=== PATIENT | male | born 1935 | race Caucasian/White ===

== ENCOUNTER → 2017-10-26 16:21 | Outpatient (CLI) | payer MEDICARE, SELFPAY | PROVIDERS: Family Provider Family Medicine; PCP Family Medicine; Visit Provider Podiatrist | DX: L03.90 Cellulitis, unspecified (principal) | CPT/HCPCS: 87070; 87077; 87186; 87205 ==

== ENCOUNTER → 2017-11-21 12:24 | Outpatient (CLI) | payer MEDICARE, SELFPAY ==
[2017-11-21 14:36] LABS: Anion Gap 6 (5-15); BUN 33 mg/dL (7-18); BUN/Creat Ratio 16.6 RATIO (10-20); Calcium,Total 9.1 mg/dL (8.5-10.1); Chloride 106 mmol/L (98-107); Creatinine, Serum 1.99 mg/dL (0.70-1.30); EST Glomerular Filtration Rate 34 mL/min (>60); Est Glom Filt Rate - Afr Amer 41 mL/min (>60); Glucose 121 mg/dL (74-106); Potassium 5.2 mmol/L (3.5-5.1); Sodium Level 136 mmol/L (136-145)
== END ==
PROVIDERS: Family Provider Family Medicine; PCP Family Medicine; Visit Provider Family Medicine
DX: E11.9 Type 2 diabetes mellitus without complications (principal)
CPT/HCPCS: 36415; 80048

== ENCOUNTER → 2018-04-30 11:49 | Outpatient (CLI) | payer MEDICARE, SELFPAY ==
[2017-10-24 13:14] VITALS: BMI 29.1
[2018-04-30 14:30] LABS: Hematocrit 43.7 % (40-54); Hemoglobin 14.3 g/dl (13.0-16.5); Mean Corp Hgb Conc 32.7 g/gl (32-36); Mean Corpuscular Hgb 30.3 pg (27.0-32.0); Mean Corpuscular Volume 92.6 fL (80-94); RBC Distribution Width CV 13.3 % (11.6-14.6); Red Blood Count 4.72 M/mm3 (4.6-6.2); White Blood Count 9.5 K/mm3 (4.4-11.0)
[2018-04-30 14:31] LABS: Absolute Lymphocyte Count 1.45 X10^3/ul (0.83-4.51); Basophil# 0.02 X10^3/uL; Basophil% 0.2 % (0-1); Eosinophil# 0.04 X10^3/uL; Eosinophils% 0.4 % (0-5); Lymphocyte # 1.45 X10^3/ul (4.0); Lymphocyte % 15.3 % (19-41); Mean Platelet Vol. 11.1 fl (6.2-12.0); Monocyte# 0.91 X10^3/uL; Monocyte% 9.6 % (0-10); Neutrophil # 7.03 X10^3/uL (2.7-7.7); Neutrophil % 74.2 % (47-70); POSITIVE COUNT NO; POSITIVE DIFFERENTIAL NO; POSITIVE MORPHOLOGY NO; Platelet Count 226 K/mm3 (150-450)
== END ==
PROVIDERS: Family Medicine; Family Provider Family Medicine; PCP Family Medicine; Visit Provider Family Medicine
DX: K92.1 Melena (principal)
CPT/HCPCS: 36415; 85025

== ENCOUNTER 2018-05-19 21:10 | Emergency (ER) | payer MEDICARE, SELFPAY ==
[2018-05-06 14:32] VITALS: BMI 29.1
[2018-05-19 21:11] VITALS: BP 116/77; PULSE 98; RESP 18; TEMP 36.3; O2SAT 98; BMI 28.0
--- NOTE | 2018-05-19 21:22 | RAD_ITS ---
STUDY: X-RAY CHEST REASON FOR EXAM: Male, 82 years old. Chest pain TECHNIQUE: AP COMPARISON: 06/16/2016 FINDINGS: The lungs are clear and expanded. There is no demonstrated pleural abnormality. Normal size heart. Normal mediastinum and félix. Normal visualized pulmonary arteries. There is atherosclerotic tortuosity of the aortic arch and descending thoracic aorta. Normal visualized thoracic spine. Normal visualized ribs, clavicles, and shoulders. There is no demonstrated abnormality of the visualized soft tissue structures of the upper abdomen. RAD/Chest 1 View (Portable) IMPRESSION: Nonacute portable x-ray examination of the chest. Electronically Signed: Radames Mccarthy MD at 21:42 EST , Service support ,
--- NOTE | 2018-05-19 21:22 | EKG12_ITS ---
Test Reason : SYNCOPE Blood Pressure : / mmHG Vent. Rate : 094 BPM Atrial Rate : 094 BPM P-R Int : 170 ms QRS Dur : 084 ms QT Int : 376 ms P-R-T Axes : 048 055 047 degrees QTc Int : 470 ms Normal sinus rhythm Normal ECG Confirmed by TEZ DIAZ, BRO ([id number]), production editor JACOB WINSTON ([id number]) on 05/21/2018 8:59:28 AM Referred By: GABRIELLE Confirmed By:BRO REAGAN MD
--- NOTE | 2018-05-19 21:24 | ED.VISSUMM ---
- ER Visit Summary Date of Service: 05/19/18 Chief Complaint: [] Near syncope on commode after bowel prep for colonoscopy History of Present Illness: The patient is a 82 M [] diabetic on no meds blood sugar about 300, one cardiac stent, reports he scheduled undergo colonoscopy tomorrow for evaluation of prior episode of black stool he said no recent black stools he basically was taking all of the bowel prep medicine including the MiraLAX he had multiple episodes of loose diarrheal bowel movements. During the last one this evening after a large diarrheal bowel movement he could not get off the commode, he was not unconscious he remembers his talking to him but simply could not get off the commode, paramedics were contacted and was brought to the hospital for evaluation He denies fever cough chest pain he is back to baseline now he did not wish to come to the hospital Physical Examination: [] His blood pressure is 116/80 he is afebrile his heart rate is 80 he is resting company in the bed General, no distress resting comfortably HEENT is generally unremarkable The neck is supple no adenopathy Cardiovascular, regular rate and rhythm Lungs, clear bilateral Abdomen, soft nontender Extremities, no clubbing cyanosis or edema Neurologic, awake alert answering questions appropriately moving all 4 extremities Test Results: [] Emergency Department Course and Treatment: [] Given all the above EKG screening labs IV fluids The patient's labs EKG are generally unremarkable for him nothing acute creatinine about 1.8 that is close to baseline He has been given fluids back to baseline he wants to go home he will continue his management and follow-up with all of his outpatient providers and return for change in symptoms, again he does not wish to be admitted Treatment Plan: [] Disposition: [] Stable home Impression: [] Diarrhea after colon prep, near syncope resolved This note was generated with [employer] dictation software. It may contain incorrect words, spelling, and punctuation that were not noted in review of the chart prior to signing ED Disposition - Plan for ED Patient: Chief Complaint: Syncope Referrals: Mike Salas MD [Primary Care Provider] -
[2018-05-19 21:29] VITALS: O2SAT 98
[2018-05-19] MEDS: 0.9% Normal Saline 1,000 ML 150 ML IV (21:30)
[2018-05-19 21:37] LABS: Absolute Lymphocyte Count 0.96 X10^3/ul (0.83-4.51); Absolute Neutrophil Count 6.9 X10^3/uL (2.0-7.7); Basophil# 0.01 X10^3/uL; Basophil% 0.1 % (0-1); Eosinophil# 0.09 X10^3/uL; Hematocrit 40.9 % (40-54); Hemoglobin 13.6 g/dl (13.0-16.5); Lymphocyte # 0.96 X10^3/ul (4.0); Lymphocyte % 10.3 % (19-41); Mean Corp Hgb Conc 33.3 g/gl (32-36); Mean Corpuscular Hgb 29.9 pg (27.0-32.0); Mean Corpuscular Volume 89.9 fL (80-94); Mean Platelet Vol. 10.7 fl (6.2-12.0); Monocyte# 1.34 X10^3/uL; Monocyte% 14.4 % (0-10); Neutrophil # 6.88 X10^3/uL (2.7-7.7); Neutrophil % 73.9 % (47-70); Platelet Count 206 K/mm3 (150-450); RBC Distribution Width CV 13.5 % (11.6-14.6); RBC Distribution Width SD 43.7 fl (35.1-43.9); Red Blood Count 4.55 M/mm3 (4.6-6.2); White Blood Count 9.3 K/mm3 (4.4-11.0)
[2018-05-19 21:38] LABS: POSITIVE COUNT NO; POSITIVE DIFFERENTIAL NO; POSITIVE MORPHOLOGY NO
[2018-05-19 21:51] LABS: Anion Gap 9 (5-15); BUN 27 mg/dL (7-18); BUN/Creat Ratio 14.8 RATIO (10-20); Calcium,Total 8.8 mg/dL (8.5-10.1); Chloride 105 mmol/L (98-107); Creatinine, Serum 1.83 mg/dL (0.70-1.30); EST Glomerular Filtration Rate 38 mL/min (>60); Est Glom Filt Rate - Afr Amer 46 mL/min (>60); Estimated Creatinine Clearance 29.59 ml/min; Glucose 264 mg/dL (74-106); Potassium 4.3 mmol/L (3.5-5.1); Sodium Level 135 mmol/L (136-145)
[2018-05-19 22:07] LABS: BNP,B-Type NATRIURETIC PEPTIDE 63.6 pg/mL (0-100)
--- NOTE | 2018-05-19 22:07 | ED.DEP ---
ED Disposition - Plan for ED Patient: Chief Complaint: Syncope Instructions: ED Hypotension Orthostatic Referrals: Mike Salas MD [Primary Care Provider] -
[2018-05-19 22:11] VITALS: BP 130/71; PULSE 97; RESP 16; O2SAT 98
== END 2018-05-19 22:23 | disposition home or self-care (01) ==
LOC: ED 21:37
PROVIDERS: Emergency Provider Emergency Medicine; Family Provider Family Medicine; PCP Family Medicine
DX: R19.7 Diarrhea, unspecified (principal); R55 Syncope and collapse; E11.9 Type 2 diabetes mellitus without complications; Z95.5 Presence of coronary angioplasty implant and graft; Z79.82 Long term (current) use of aspirin; Z79.899 Other long term (current) drug therapy
CPT/HCPCS: 71045; 80048; 83880; 84484; 85025; 93005; 96360; 99285; J7030; J7040

== ENCOUNTER 2018-05-20 06:49 | Day surgery (SDC) | payer MEDICARE, SELFPAY ==
[2018-05-06 14:32] VITALS: BMI 29.1
[2018-05-19 21:11] VITALS: BMI 28.0
[2018-05-20] VITALS (7 sets, daily range): BP systolic 109–137; BP diastolic 58–112; PULSE 75–95; RESP 16; TEMP 35.9–37.6; O2SAT 95–100; BMI 26.7
[2018-05-20 07:35] LABS: Bedside Glucose 245 mg/dL (70-110)
--- NOTE | 2018-05-20 08:00 | GASB_PTH ---
PATIENT: ROSHNI GARCIA LOC: EN U#:[id number] AGE/SX: 82/M ROOM: RE05/20/[address]: Dr. Kane Mcpherson MD : 1935 BED: DIS: 05/20/2018 SPEC #: [id number] RECD: 05/20/18 10:50 STATUS: KARMA MARIAN #: [id number] KATELYN: 05/20/18 08:[address]: Kane Mcpherson DEPT: SURGICAL PATHOLOGY RECD BY: Donavon Ball ENTERED: 05/20/18 12:47 SP TYPE: Gastric Bx OTHR DR: Dr. Mike Salas MD Tissues: Gastric mucous membrane Procedures: Surgery Specimen Level IV HEADER OPERATION: [place] [place] DIAGNOSIS: Abdominal pain; black, tarry stools TISSUE SUBMITTED: Antral biopsy for H. pylori and pathology MICROSCOPIC DIAGNOSIS Antral biopsy: Mild gastritis. See microscopic description and comment. SJ:steve 05/21/18 COMMENT The results of immunohistochemistry for Helicobacter pylori will be reported separately ([id number]). MICROSCOPIC DESCRIPTION Slides are reviewed. The specimen shows fragments of gastric mucosa with chronic inflammatory cell infiltrates in the lamina propria consisting of lymphocytes and plasma cells, consistent with mild chronic gastritis. GROSS DESCRIPTION Received in fixative is one container labeled with the patient's name and designated antral biopsy. The specimen consists of one irregular fragment of light massey soft tissue that measures 0.6 x 0.2 x 0.1 cm. The specimen is totally submitted in one cassette. / SJ:rg 05/20/18 TC:3 CPT: 67906
--- NOTE | 2018-05-20 08:00 | IMM_PTH ---
PATIENT: ROSHNI GARCIA LOC: EN U#:[id number] AGE/SX: 82/M ROOM: RE05/20/[address]: Dr. Kane Mcpherson MD : 1935 BED: DIS: 05/20/2018 SPEC #: [id number] RECD: 05/20/18 13:47 STATUS: KARMA REQ #: [id number] KATELYN: 05/20/18 08:[address]: Kane Mcpherson DEPT: IMMUNOHISTOCHEMISTRY RECD BY: Latonya Castañeda ENTERED: 05/20/18 13:48 SP TYPE: IMMUNO OTHR DR: Dr. Mike Salas MD Tissues: Stomach, NOS Procedures: H Pylori (initial) PHYSICIAN & INSTITUTION [place] [address] SPECIMEN INFORMATION: Tissue Source: Antral biopsy Clinical Info: Abdominal pain; black, tarry stools Specimen Number: [id number] CPT code: 06505 METHODOLOGY: Deparaffinized sections of prefer/formalin-fixed tissue or PAP/DQ stained slides are incubated with monoclonal/polyclonal antibodies/oligonucleotide probes. Localization is made via biotin free immunoperoxidase method. Appropriate controls are performed and reacted as expected. Results on target cell population are indicated in the following table: RESULTS: ANTIBODY / CLONE RESULT H Pylori (polyclonal) negative These tests were developed and their performance characteristics determined by [facility]. They may not have been cleared or approved by the U.S. Food and Drug Administration. The FDA has determined that such clearance or approval is not necessary. INTERPRETATION: Antral biopsy: Negative for Helicobacter pylori organisms. SJ:steve 05/21/18
--- NOTE | 2018-05-20 08:25 | OP.ENDO_ITS ---
Patient Name: Александр Walden Procedure Date: 05/20/2018 7:56 AM Date of : 1935 Age: 82 Procedure: Upper GI endoscopy Indications: Generalized abdominal pain, Melena Providers: Kane Mcpherson MD Referring MD: Mike Salas MD Medicines: See the Anesthesia note for documentation of the administered medications Patient Profile: This is an 82 year old male. Refer to note in patient chart for documentation of history and physical. Complications: No immediate complications. Procedure: Pre-Anesthesia Assessment: - Prior to the procedure, a History and Physical was performed, and patient medications and allergies were reviewed. The patient's tolerance of previous anesthesia was also reviewed. The risks and benefits of the procedure and the sedation options and risks were discussed with the patient. All questions were answered, and informed consent was obtained. Prior Anticoagulants: The patient has taken no previous anticoagulant or antiplatelet agents. ASA Grade Assessment: III - A patient with severe systemic disease. After reviewing the risks and benefits, the patient was deemed in satisfactory condition to undergo the procedure. After obtaining informed consent, the endoscope was passed under direct vision. Throughout the procedure, the patient's blood pressure, pulse, and oxygen saturations were monitored continuously. The gastroscope was introduced through the mouth, and advanced to the second part of duodenum. The upper GI endoscopy was accomplished without difficulty. The patient tolerated the procedure well. Scope In: 8:02:49 AM Scope Out: 8:05:36 AM Total Procedure Duration Time 0 hours 2 minutes 47 seconds Findings: The Z-line was regular and was found 40 cm from the incisors. A small hiatal hernia was present. Localized minimal inflammation characterized by erythema was found in the prepyloric region of the stomach. Biopsies were taken with a cold forceps for Helicobacter pylori testing. The examined duodenum was normal. Impression: - Z-line regular, 40 cm from the incisors. - Small hiatal hernia. - Gastritis. Biopsied. - Normal examined duodenum. Recommendation: - Await pathology results. - Repeat upper endoscopy PRN for surveillance. - Return to my office in 1 week. - Continue present medications. Procedure Code(s): --- Professional --- 99206, Esophagogastroduodenoscopy, flexible, transoral; with biopsy, single or multiple Diagnosis Code(s): --- Professional --- K44.9, Diaphragmatic hernia without obstruction or gangrene K29.70, Gastritis, unspecified, without bleeding R10.84, Generalized abdominal pain K92.1, Melena (includes Hematochezia) CPT copyright 2017 [employer]. All rights reserved. The codes documented in this report are preliminary and upon therapeutic recreation assistant review may be revised to meet current compliance requirements. MD Kane Johnson MD 05/20/2018 8:25:29 AM This report has been signed electronically. Number of Addenda: 0 Note Initiated On: 05/20/2018 7:56 AM
--- NOTE | 2018-05-20 08:31 | OP.ENDO_ITS ---
Patient Name: Александр Walden Procedure Date: 05/20/2018 8:07 AM Date of : 1935 Age: 82 Procedure: Colonoscopy Indications: Generalized abdominal pain, Melena Providers: Kane Mcpherson MD Referring MD: Mike Salas MD Medicines: See the Anesthesia note for documentation of the administered medications Patient Profile: This is an 82 year old male. Refer to note in patient chart for documentation of history and physical. Last Colonoscopy: date unknown. Unable to locate last colonoscopy report. Complications: No immediate complications. Procedure: Pre-Anesthesia Assessment: - Prior to the procedure, a History and Physical was performed, and patient medications and allergies were reviewed. The patient's tolerance of previous anesthesia was also reviewed. The risks and benefits of the procedure and the sedation options and risks were discussed with the patient. All questions were answered, and informed consent was obtained. Prior Anticoagulants: The patient has taken no previous anticoagulant or antiplatelet agents. ASA Grade Assessment: III - A patient with severe systemic disease. After reviewing the risks and benefits, the patient was deemed in satisfactory condition to undergo the procedure. - Prior to the procedure, a History and Physical was performed, and patient medications and allergies were reviewed. The patient's tolerance of previous anesthesia was also reviewed. The risks and benefits of the procedure and the sedation options and risks were discussed with the patient. All questions were answered, and informed consent was obtained. Prior Anticoagulants: The patient has taken no previous anticoagulant or antiplatelet agents. ASA Grade Assessment: III - A patient with severe systemic disease. After reviewing the risks and benefits, the patient was deemed in satisfactory condition to undergo the procedure. After I obtained informed consent, the scope was passed under direct vision. Throughout the procedure, the patient's blood pressure, pulse, and oxygen saturations were monitored continuously. The colonoscope was introduced through the anus and advanced to the cecum, identified by appendiceal orifice and ileocecal valve. The colonoscopy was performed without difficulty. The patient tolerated the procedure well. The quality of the bowel preparation was good. Scope In: 8:08:20 AM Scope Withdrawal Time 0 hours 6 minutes 2 seconds Scope Out: 8:20:40 AM Total Procedure Duration Time 0 hours 12 minutes 20 seconds Findings: Multiple small and large-mouthed diverticula were found in the sigmoid colon and descending colon. Non-bleeding internal hemorrhoids were found during retroflexion. The hemorrhoids were mild. The exam was otherwise without abnormality. Impression: - Diverticulosis in the sigmoid colon and in the descending colon. - Non-bleeding internal hemorrhoids. - The examination was otherwise normal. - There were no signs of any mass lesions. There is no AVMs noted. - No specimens collected. Recommendation: - Discharge patient to home. - Resume previous diet. - Continue present medications. - Await pathology results. - Repeat colonoscopy in 10 years for screening purposes. - Return to primary care physician at appointment to be scheduled. Procedure Code(s): --- Professional --- 41455, Colonoscopy, flexible; diagnostic, including collection of specimen(s) by brushing or washing, when performed (separate procedure) Diagnosis Code(s): --- Professional --- K64.8, Other hemorrhoids R10.84, Generalized abdominal pain K92.1, Melena (includes Hematochezia) K57.30, Diverticulosis of large intestine without perforation or abscess without bleeding CPT copyright 2017 [employer]. All rights reserved. The codes documented in this report are preliminary and upon special projects manager review may be revised to meet current compliance requirements. MD Kane Johnson MD 05/20/2018 8:30:25 AM This report has been signed electronically. Number of Addenda: 0 Note Initiated On: 05/20/2018 8:07 AM
== END 2018-05-20 09:05 | disposition home or self-care (01) ==
LOC: EN 06:51 → AC 06:52
PROVIDERS: Family Provider Family Medicine; PCP Family Medicine; Referring Provider Surgery; Visit Provider Surgery
PROC: 0DJD8ZZ Inspection of Lower Intestinal Tract, Via Natural or Artificial Opening Endoscopic (ICD-10-PCS; CPT 45378; principal; 2018-05-20 07:55)
DX: K29.70 Gastritis, unspecified, without bleeding (principal); K44.9 Diaphragmatic hernia without obstruction or gangrene; K57.30 Diverticulosis of large intestine without perforation or abscess without bleeding; K64.8 Other hemorrhoids; I25.10 Atherosclerotic heart disease of native coronary artery without angina pectoris; E11.22 Type 2 diabetes mellitus with diabetic chronic kidney disease; I12.9 Hypertensive chronic kidney disease with stage 1 through stage 4 chronic kidney disease, or unspecified chronic kidney disease; N18.9 Chronic kidney disease, unspecified; K21.9 Gastro-esophageal reflux disease without esophagitis; E78.00 Pure hypercholesterolemia, unspecified; E06.9 Thyroiditis, unspecified; M06.9 Rheumatoid arthritis, unspecified; M10.9 Gout, unspecified; Z86.73 Personal history of transient ischemic attack (TIA), and cerebral infarction without residual deficits; Z85.828 Personal history of other malignant neoplasm of skin; Z90.49 Acquired absence of other specified parts of digestive tract; Z95.5 Presence of coronary angioplasty implant and graft; Z79.82 Long term (current) use of aspirin; Z79.84 Long term (current) use of oral hypoglycemic drugs; Z79.899 Other long term (current) drug therapy
CPT/HCPCS: 43239; 45378; 82962; 88305; 88342; J7120

== ENCOUNTER → 2018-08-12 13:54 | Outpatient (CLI) | payer MEDICARE, SELFPAY ==
[2018-05-20 07:25] VITALS: BMI 26.7
[2018-08-12 13:57] LABS: Bacteria 0 SEEN /hpf (None Seen); Mucous, Urine 0 SEEN /hpf (<or=2+); Squamous Epithelial Cells - UA 0 SEEN /hpf (0-5); White Blood Cells 0 SEEN /hpf (0-5)
[2018-08-12 14:53] LABS: Absolute Lymphocyte Count 1.19 X10^3/ul (0.83-4.51); Absolute Neutrophil Count 5.6 X10^3/uL (2.0-7.7); Basophil# 0.01 X10^3/uL; Basophil% 0.1 % (0-1); Eosinophil# 0.05 X10^3/uL; Eosinophils% 0.6 % (0-5); Hematocrit 42.2 % (40-54); Lymphocyte # 1.19 X10^3/ul (4.0); Lymphocyte % 15.1 % (19-41); Mean Corp Hgb Conc 33.2 g/gl (32-36); Mean Corpuscular Hgb 30.3 pg (27.0-32.0); Mean Corpuscular Volume 91.3 fL (80-94); Mean Platelet Vol. 11.1 fl (6.2-12.0); Monocyte# 1.05 X10^3/uL; Monocyte% 13.3 % (0-10); Neutrophil # 5.57 X10^3/uL (2.7-7.7); Neutrophil % 70.5 % (47-70); Platelet Count 208 K/mm3 (150-450); RBC Distribution Width CV 13.5 % (11.6-14.6); RBC Distribution Width SD 44.3 fl (35.1-43.9); Red Blood Count 4.62 M/mm3 (4.6-6.2); White Blood Count 7.9 K/mm3 (4.4-11.0)
[2018-08-12 14:55] LABS: Color, Urine Yellow (Yellow); Glucose, Dipstick Normal (Normal); Ketone-Dipstick 5 mg/dl (Negative); Leukocyte Esterase-Dipstick Negative /ul (Negative); Nitrite-Dipstick Negative (Negative); Occult Blood-Urine 10 /ul (Negative); Protein-Dipstick 100 mg/dl (Negative); Urine Bilirubin Dipstick Negative (Negative); Urine Clarity Clear (Clear); Urine Urobilinogen Normal (Normal)
[2018-08-12 14:56] LABS: POSITIVE COUNT NO; POSITIVE DIFFERENTIAL NO; POSITIVE MORPHOLOGY NO
[2018-08-12 15:01] LABS: Red Blood Cells-Urine 0-5 SEEN /hpf (0-5)
[2018-08-12 15:05] LABS: ALB/GLOB Ratio 0.9 RATIO (0.9-2.4); AST(SGOT) 21 U/L (15-37); Alanine Aminotransfer ALT/SGPT 18 U/L (16-61); Albumin, Serum 3.6 g/dL (3.2-5.0); Alkaline Phosphatase 115 U/L (45-117); Anion Gap 8 (5-15); BUN 26 mg/dL (7-18); BUN/Creat Ratio 13.2 RATIO (10-20); Calcium,Total 8.6 mg/dL (8.5-10.1); Chloride 105 mmol/L (98-107); Creatinine, Serum 1.97 mg/dL (0.70-1.30); EST Glomerular Filtration Rate 35 mL/min (>60); Est Glom Filt Rate - Afr Amer 42 mL/min (>60); Globulin 4.1 g/dL (2.2-4.2); Glucose 172 mg/dL (74-106); Potassium 4.5 mmol/L (3.5-5.1); Protein, Total 7.7 g/dL (6.4-8.2); Sodium Level 136 mmol/L (136-145)
== END ==
PROVIDERS: Family Provider Family Medicine; PCP Family Medicine; Referring Provider Family Medicine; Visit Provider Family Medicine
DX: R10.9 Unspecified abdominal pain (principal)
CPT/HCPCS: 36415; 80053; 81001; 85025

== ENCOUNTER → 2018-08-12 14:29 | Outpatient (CLI) | payer MEDICARE, SELFPAY ==
[2018-05-20 07:25] VITALS: BMI 26.7
--- NOTE | 2018-08-12 14:37 | CT_ITS ---
STUDY: CT ABDOMEN AND PELVIS WITHOUT CONTRAST REASON FOR EXAM: Male, 83 years old. Abdominal pain, weight loss. History of cholecystectomy and hernia repair. RADIATION DOSAGE (If Supplied By Facility): CTDIvol = ( 10.27 ) mGy, DLP = ( 464.26 ) mGycm TECHNIQUE: Transaxial images were obtained from the dome of the diaphragm to the symphysis pubis with oral contrast, and without intravenous contrast. Sagittal and coronal images were reconstructed. Individualized dose optimization techniques were used for this CT. COMPARISON: CT abdomen and pelvis without contrast April 22, 2016. FINDINGS: Stable 6 mm nodular density in the posterolateral periphery of the right lung base. Other similar small nodular densities seen previously in the nearby right lung base are not included in the field of view today. Normal heart size. There is stable minor anterior pericardial thickening. Normal liver. The portal vein diameter is 13.5 mm. There are surgical clips in the gallbladder fossa consistent with a prior cholecystectomy. Normal spleen. Round 1.5 cm accessory spleen is seen anterior to the mid pole. There is mild diffuse fatty infiltration of the pancreas. Normal bilateral adrenal glands. There are at least 4 stable cortical cysts of the right kidney. The largest is at the posterior lateral mid pole, measuring 2.7 x 2.0 x 2.3 cm Rounded hypodense 2 cm cyst at the posterior midpole of the left kidney is unchanged. Stable 2 mm nonobstructing stone at the left midpole. No hydronephrosis. There is a stable very small hiatal hernia. Normal small intestine. There are multiple colonic diverticula consistent with diverticulosis. There is borderline pericolonic stranding over a short segment of the distal most left colon that raises question of early diverticulitis. No demonstrated extraluminal collection. The appendix is visualized and appears normal. There is mild atherosclerotic calcification of the abdominal aorta and proximal iliac arteries, with stable 1.9 x 2.05 cm fusiform dilatation of the infrarenal segment. Normal inferior vena cava. Normal retroperitoneum. Empty urinary bladder. Normal visualized prostate gland. A right hydrocele is again noted. Surgical clips are again seen along the inguinal regions of the bilateral lower anterior abdominal wall. There is a stable small left-sided inguinal hernia containing adipose tissue. There are stable, extensive diffuse degenerative changes of the visualized lumbar spine, as well as degenerative arthrosis of the bilateral sacroiliac joints with bridging periarticular osteophytes CT/Abdomen/Pelvis without Cont IMPRESSION: 1. No new demonstrated abdominal/pelvic mass or fluid collection. 2. Colonic diverticulosis with question of early diverticulitis of the distal most left colon. No shift level collections demonstrated. No sign of bowel obstruction. The appendix is normal. Stable very small hiatal hernia. 3. Aortoiliac atherosclerotic calcific plaquing with 2.05 cm fusiform infrarenal dilatation.. 4. Bilateral renal cortical cysts again noted. Stable 2 mm nonobstructing stone at the midpole of the left kidney. No hydronephrosis. 5. Prior cholecystectomy. 6. Surgical clips again seen along the inguinal tissues of the bilateral low anterior abdominal chen. There is a stable small, fat-containing left inguinal hernia. 7. Stable extensive degenerative changes of the spine as well as degenerative arthroses of the bilateral sacroiliac joints. 8. Stable 6 mm nodule in the posterolateral right lung base Electronically Signed: Saqib Nowak MD at 17:37 EST , Service support ,
== END ==
PROVIDERS: Family Provider Family Medicine; PCP Family Medicine; Referring Provider Family Medicine; Visit Provider Family Medicine
DX: R10.9 Unspecified abdominal pain (principal)
CPT/HCPCS: 36415; 74176; 80053; 81001; 85025

== ENCOUNTER 2018-08-16 11:23 | Inpatient (IN) | payer MEDICARE, SELFPAY ==
[2018-05-20 07:25] VITALS: BMI 26.7
[2018-08-16] VITALS (10 sets, daily range): BP systolic 117–151; BP diastolic 70–90; PULSE 85–115; RESP 14–20; TEMP 36.4–36.6; O2SAT 98–100; BMI 25.2
--- NOTE | 2018-08-16 12:22 | CT_ITS ---
STUDY: CT BRAIN WITHOUT CONTRAST REASON FOR EXAM: Male, 83 years old. Seizure. Left upper extremity numbness. RADIATION DOSAGE (If Supplied By Facility): CTDIvol = ( 44.99 ) mGy, DLP = ( 745.49 ) mGycm TECHNIQUE: Transaxial CT imaging of the brain was performed without administration of intravenous contrast material. Individualized dose optimization techniques were used for this CT. COMPARISON: None. FINDINGS: Normal soft tissue structures. Normal calvarium. There is mild cerebral atrophy with widening of the extra-axial spaces and ventricular dilatation. There are areas of decreased attenuation within the white matter tracts of the supratentorial brain, consistent with microvascular disease changes. There are small punctate calcifications of the basal ganglia which are seen in the aging brain as a normal variant. Normal brainstem. There is mild cerebellar atrophy. There is no intracranial hemorrhage. There are no findings of an acute ischemic infarction. Atherosclerotic ossification of the cavernous portions of the internal carotid arteries bilaterally. Normal visualized paranasal sinuses. CT/Brain/Head without Contrast IMPRESSION: Normal unenhanced CT scan of the brain. Electronically Signed: Kelvin Love, at 14:32 EST , Service support ,
--- NOTE | 2018-08-16 12:22 | RAD_ITS ---
STUDY: X-RAY CHEST REASON FOR EXAM: Male, 83 years old. Abdominal pain. History of diverticulitis. TECHNIQUE: Single AP portable view of the chest. COMPARISON: Comparison is made with prior study dated May 19, 2018. FINDINGS: EKG electrodes are seen. Hyperinflation. The lungs are clear. There is no demonstrated pleural abnormality. Normal size heart. Normal mediastinum and félix. Normal visualized pulmonary arteries. There is atherosclerotic tortuosity of the aortic arch and descending thoracic aorta. There are diffuse degenerative changes of the visualized thoracic spine. Normal visualized ribs, clavicles, and shoulders. There is no demonstrated abnormality of the visualized soft tissue structures of the upper abdomen. RAD/Chest 1 View IMPRESSION: Hyperinflation. The lungs are clear. Electronically Signed: Kelvin Love, at 14:30 EST , Service support ,
--- NOTE | 2018-08-16 12:22 | EKG12_ITS ---
Test Reason : SEIZURE Blood Pressure : / mmHG Vent. Rate : 093 BPM Atrial Rate : 093 BPM P-R Int : 176 ms QRS Dur : 080 ms QT Int : 360 ms P-R-T Axes : 066 052 050 degrees QTc Int : 447 ms Normal sinus rhythm Normal ECG Confirmed by SALINAS DIAZ, MARITO ([id number]), continuity editor JACOB WINSTON ([id number]) on 08/20/2018 9:49:03 AM Referred By: BB Confirmed By:MARITO NIÑO MD
--- NOTE | 2018-08-16 12:33 | ED.VIS.GEN ---
History of Present Illness Chief Complaint: Seizure Informant: Patient, Family Onset: Today Narrative: Patient got out of the shower this morning and at around 09 100, around 3 hours prior to arrival, he noticed numbness in his right upper extremity mostly his hand. He does not think he had any weakness that he can recall. Just prior to arrival, while sitting in his recliner, his witnessed him all of a sudden appeared to have a seizure. His hands were up near his face and he was shaking all over, eyes rolled back and has had any was unresponsive. This lasted for a couple of minutes, and it resolved spontaneously, he did not fall. He was very briefly unresponsive afterwards but quickly came to. He is amnestic to the event. He has never had a seizure before. No known history of mass in the brain, he did have a TIA in the past. He takes no antiplatelets or anticoagulants. He did not hit his head recently. He has been on antibiotics for several days because of diverticulitis which has been improving. No other recent illnesses. His numbness is improved at this time, but not completely resolved. - Past Medical History (1) Atherosclerosis of aorta Status: Chronic (2) Coronary atherosclerosis of [place] coronary artery Status: Chronic Comment: [facility] with stent to ramus 10/31/10 (3) Diverticulosis of colon Status: Chronic (4) Esophageal reflux Status: Chronic (5) Essential hypertension Status: Chronic (6) Hyperlipidemia Status: Chronic (7) Hypertensive chronic kidney disease Status: Chronic (8) Hypothyroidism Status: Chronic (9) Type II diabetes mellitus Status: Chronic Past Medical History - Allergies and Home Meds Allergies/Adverse Reactions: Allergies clopidogrel bisulfate [From Plavix] Allergy (Verified 08/16/18 11:32) Rash cyclobenzaprine [Cyclobenzaprine] Allergy (Verified 08/16/18 11:32) Rash fluoxetine HCl [From Prozac] Allergy (Verified 08/16/18 11:32) Rash Primary Care Physician: Mike Salas MD [Primary Care Provider] - Surgical History: cholecystectomy, - - back Lives: Spouse/ Significant Other Smoking Status: Never smoker Review of Systems General: Reports: Malaise. Denies: Chills, Fever, Sweats Eyes: Denies: Visual changes - bilaterally, Diplopia ENT: Denies: Rhinorrhea, Sore throat Cardiovascular: Denies: Chest pain, Palpitations Respiratory: Denies: Dyspnea, Cough, Dyspnea on exertion Gastrointestinal: Reports: Abdominal pain, Nausea. Denies: Vomiting, Diarrhea, Melena, Hematochezia Genitourinary: Reports: - - sore, swollen right testicle due to chronic hydrocele. Denies: Dysuria, Hematuria, Frequency Musculoskeletal: Denies: Back pain, Extremity Pain Skin: Denies: Rash, Wounds Neurological: Reports: Numbness - RUE; improved.. Denies: Headache, Weakness Physical Exam Vital Signs/Narrative: Vital Signs Temp Pulse Resp BP Pulse Ox 08/16/18 11:29 97.5 F L 95 16 136/74 H 99 Inital Vital Signs reviewed: Yes General: Well nourished, Well developed, No Acute Distress - conversive Head: Normocephalic, Atraumatic Eyes: Perrl, EOMI ENT: Moist mucous membranes, No rhinorrhea Neck: Supple, Nontender Cardiovascular: Regular rate, Regular rhythm, No murmurs. Negative for: Tachycardia Respiratory: No distress, CTA bilaterally, Chest nontender Abdomen: Soft, Nondistended, Normal bowel sounds, Tender - mild LUQ only. Negative for: Guarding, Rebound tenderness Back: Nontender, Normal Inspection Extremities: Nontender, No edema Skin: Normal color, No rash Neurological: Alert, Oriented x3, Cranial nerves II-XII grossly intact, Normal Sensation, Parasthesia - mild, RUE forearm, Weakness - pronator drift RUE only, - - no dysarthria or aphasia. no hemineglect. follows commands appropriately. correct month/age. nml visual melendez, eye movements. no facial asymmetry. persistent subj numbness, not abn objectively. Total NIHSS - 2. Psychological: Normal affect, Normal Mood Diagnostic/Tx/Re-eval 08/16/18 12:22 Brain/Head without Contrast [CT] Stat CTA Head W/WO Contrast [CT] Stat CTA Neck W/WO Contrast [CT] Stat Chest 1 View [RAD] Stat Laboratory Results 08/16/18 08/16/18 08/16/18 12:40 12:40 12:40 WBC 7.3 RBC 4.25 L Hgb 12.6 L Hct 38.7 L MCV 91.1 MCH 29.6 MCHC 32.6 RDW 13.4 RDW Differential 44.0 H Plt Count 172 MPV 11.0 Immature Gran % (Auto) 0.400 Neut % (Auto) 76.6 H Lymph % (Auto) 8.7 L [place] % (Auto) 13.8 H Eos % (Auto) 0.4 Baso % (Auto) 0.1 Absolute Neuts (auto) 5.6 Absolute Lymphs (auto) 0.63 L Total Counted Not Reportable PT 15.1 H INR 1.2 APTT 31.3 Sodium 137 Potassium 3.9 Chloride 105 Carbon Dioxide 23.0 Anion Gap 9 BUN 23 H Creatinine 2.00 H Estim Creat Clear Calc 26.60 Est GFR (MDRD) Af Amer 41 L Est GFR (MDRD) Non-Af 34 L BUN/Creatinine Ratio 11.5 Glucose 224 H Calcium 8.6 Troponin I < 0.015 - Rhythm Strip Rhythm Strip: Sinus Rhythm Rate: 95 Ectopy: None - EKG Initial EKG Interpretation: Sinus Rhythm, No Acute Injury Pattern, - - nml axis. nml EKG. - Medical Decision Making Labs show renal insufficiency with a creatinine of 2.0, so we held off on CT angiography. CT head shows no acute hemorrhage. On reevaluation his symptoms are stable and unchanged. NIH is 2. Discussed with Dr. Castillo with neurology who agrees with this canceling CT angiography, admitting him for MRI/MRA, and further workup, and giving him aspirin. No seizure activity in the emergency department. Patient not an IV TPA candidate, mostly because of improvement prior to arrival and low NIHSS. ED Disposition - Plan for ED Patient: Disposition: Acute Care Hospital [facility] Diagnosis: Seizure, RUE weakness Referrals: Mike Salas MD [Primary Care Provider] -
--- NOTE | 2018-08-16 12:38 | ED.DCSUM_ITS ---
History of Present Illness Chief Complaint: Seizure Informant: Patient, Family Onset: Today Narrative: Patient got out of the shower this morning and at around 09 100, around 3 hours prior to arrival, he noticed numbness in his right upper extremity mostly his hand. He does not think he had any weakness that he can recall. Just prior to arrival, while sitting in his recliner, his witnessed him all of a sudden appeared to have a seizure. His hands were up near his face and he was shaking all over, eyes rolled back and has had any was unresponsive. This lasted for a couple of minutes, and it resolved spontaneously, he did not fall. He was very briefly unresponsive afterwards but quickly came to. He is amnestic to the event. He has never had a seizure before. No known history of mass in the brain, he did have a TIA in the past. He takes no antiplatelets or anticoagulants. He did not hit his head recently. He has been on antibiotics for several days because of diverticulitis which has been improving. No other recent illnesses. His numbness is improved at this time, but not completely resolved. - Past Medical History (1) Atherosclerosis of aorta Status: Chronic (2) Coronary atherosclerosis of [place] coronary artery Status: Chronic Comment: [facility] with stent to ramus 10/31/10 (3) Diverticulosis of colon Status: Chronic (4) Esophageal reflux Status: Chronic (5) Essential hypertension Status: Chronic (6) Hyperlipidemia Status: Chronic (7) Hypertensive chronic kidney disease Status: Chronic (8) Hypothyroidism Status: Chronic (9) Type II diabetes mellitus Status: Chronic Past Medical History - Allergies and Home Meds Allergies/Adverse Reactions: Allergies clopidogrel bisulfate [From Plavix] Allergy (Verified 08/16/18 11:32) Rash cyclobenzaprine [Cyclobenzaprine] Allergy (Verified 08/16/18 11:32) Rash fluoxetine HCl [From Prozac] Allergy (Verified 08/16/18 11:32) Rash Primary Care Physician: Mike Salas MD [Primary Care Provider] - Surgical History: cholecystectomy, - - back Lives: Spouse/ Significant Other Smoking Status: Never smoker Review of Systems General: Reports: Malaise. Denies: Chills, Fever, Sweats Eyes: Denies: Visual changes - bilaterally, Diplopia ENT: Denies: Rhinorrhea, Sore throat Cardiovascular: Denies: Chest pain, Palpitations Respiratory: Denies: Dyspnea, Cough, Dyspnea on exertion Gastrointestinal: Reports: Abdominal pain, Nausea. Denies: Vomiting, Diarrhea, Melena, Hematochezia Genitourinary: Reports: - - sore, swollen right testicle due to chronic hydrocele. Denies: Dysuria, Hematuria, Frequency Musculoskeletal: Denies: Back pain, Extremity Pain Skin: Denies: Rash, Wounds Neurological: Reports: Numbness - RUE; improved.. Denies: Headache, Weakness Physical Exam Vital Signs/Narrative: Vital Signs Temp Pulse Resp BP Pulse Ox 08/16/18 11:29 97.5 F L 95 16 136/74 H 99 Inital Vital Signs reviewed: Yes General: Well nourished, Well developed, No Acute Distress - conversive Head: Normocephalic, Atraumatic Eyes: Perrl, EOMI ENT: Moist mucous membranes, No rhinorrhea Neck: Supple, Nontender Cardiovascular: Regular rate, Regular rhythm, No murmurs. Negative for: Tachycardia Respiratory: No distress, CTA bilaterally, Chest nontender Abdomen: Soft, Nondistended, Normal bowel sounds, Tender - mild LUQ only. Negative for: Guarding, Rebound tenderness Back: Nontender, Normal Inspection Extremities: Nontender, No edema Skin: Normal color, No rash Neurological: Alert, Oriented x3, Cranial nerves II-XII grossly intact, Normal Sensation, Parasthesia - mild, RUE forearm, Weakness - pronator drift RUE only, - - no dysarthria or aphasia. no hemineglect. follows commands appropriately. correct month/age. nml visual melendez, eye movements. no facial asymmetry. persistent subj numbness, not abn objectively. Total NIHSS - 2. Psychological: Normal affect, Normal Mood Diagnostic/Tx/Re-eval 08/16/18 12:22 Brain/Head without Contrast [CT] Stat CTA Head W/WO Contrast [CT] Stat CTA Neck W/WO Contrast [CT] Stat Chest 1 View [RAD] Stat Laboratory Results 08/16/18 08/16/18 08/16/18 12:40 12:40 12:40 WBC 7.3 RBC 4.25 L Hgb 12.6 L Hct 38.7 L MCV 91.1 MCH 29.6 MCHC 32.6 RDW 13.4 RDW Differential 44.0 H Plt Count 172 MPV 11.0 Immature Gran % (Auto) 0.400 Neut % (Auto) 76.6 H Lymph % (Auto) 8.7 L [place] % (Auto) 13.8 H Eos % (Auto) 0.4 Baso % (Auto) 0.1 Absolute Neuts (auto) 5.6 Absolute Lymphs (auto) 0.63 L Total Counted Not Reportable PT 15.1 H INR 1.2 APTT 31.3 Sodium 137 Potassium 3.9 Chloride 105 Carbon Dioxide 23.0 Anion Gap 9 BUN 23 H Creatinine 2.00 H Estim Creat Clear Calc 26.60 Est GFR (MDRD) Af Amer 41 L Est GFR (MDRD) Non-Af 34 L BUN/Creatinine Ratio 11.5 Glucose 224 H Calcium 8.6 Troponin I < 0.015 - Rhythm Strip Rhythm Strip: Sinus Rhythm Rate: 95 Ectopy: None - EKG Initial EKG Interpretation: Sinus Rhythm, No Acute Injury Pattern, - - nml axis. nml EKG. - Medical Decision Making Labs show renal insufficiency with a creatinine of 2.0, so we held off on CT angiography. CT head shows no acute hemorrhage. On reevaluation his symptoms are stable and unchanged. NIH is 2. Discussed with Dr. Castillo with neurology who agrees with this canceling CT angiography, admitting him for MRI/M RA, and further workup, and giving him aspirin. No seizure activity in the emergency department. Patient not an IV TPA candidate, mostly because of improvement prior to arrival and low NIHSS. ED Disposition - Plan for ED Patient: Disposition: Acute Care Hospital [facility] Diagnosis: Seizure, RUE weakness Referrals: Mike Salas MD [Primary Care Provider] -
[2018-08-16 12:48] LABS: Absolute Lymphocyte Count 0.63 X10^3/ul (0.83-4.51); Absolute Neutrophil Count 5.6 X10^3/uL (2.0-7.7); Basophil# 0.01 X10^3/uL; Basophil% 0.1 % (0-1); Eosinophil# 0.03 X10^3/uL; Eosinophils% 0.4 % (0-5); Hematocrit 38.7 % (40-54); Hemoglobin 12.6 g/dl (13.0-16.5); Lymphocyte # 0.63 X10^3/ul (4.0); Lymphocyte % 8.7 % (19-41); Mean Corp Hgb Conc 32.6 g/gl (32-36); Mean Corpuscular Hgb 29.6 pg (27.0-32.0); Mean Corpuscular Volume 91.1 fL (80-94); Monocyte% 13.8 % (0-10); Neutrophil # 5.56 X10^3/uL (2.7-7.7); Neutrophil % 76.6 % (47-70); Platelet Count 172 K/mm3 (150-450); RBC Distribution Width CV 13.4 % (11.6-14.6); Red Blood Count 4.25 M/mm3 (4.6-6.2); White Blood Count 7.3 K/mm3 (4.4-11.0)
[2018-08-16 12:49] LABS: POSITIVE COUNT NO; POSITIVE DIFFERENTIAL NO; POSITIVE MORPHOLOGY NO
[2018-08-16] MEDS: Ondansetron 4 MG/2 ML Vial IV (12:49)
[2018-08-16 13:01] LABS: International Normalized Ratio 1.2; Partial Thromboplast Time 31.3 Seconds (24.1-36.2); Prothrombin Time (Protime)PT. 15.1 SECONDS (11.7-14.9)
[2018-08-16 13:06] LABS: Anion Gap 9 (5-15); BUN 23 mg/dL (7-18); BUN/Creat Ratio 11.5 RATIO (10-20); Calcium,Total 8.6 mg/dL (8.5-10.1); Chloride 105 mmol/L (98-107); EST Glomerular Filtration Rate 34 mL/min (>60); Est Glom Filt Rate - Afr Amer 41 mL/min (>60); Glucose 224 mg/dL (74-106); Potassium 3.9 mmol/L (3.5-5.1); Sodium Level 137 mmol/L (136-145)
--- NOTE | 2018-08-16 14:57 | PCM.CONS.GEN ---
Problem List (1) Right arm numbness Status: Acute Reason for Consult Date of Consultation: 08/16/18 Reason for Consultation: Right arm numbness History of Present Illness: The patient is a 83 year old M with PMH HTN, HLD, DM, DM neuropathy, CKD, CAD s/p stents, hypothyroidism, gout admitted with right arm numbness. Patient and his are poor historians. Per patient he felt right arm numbness around 9 am this morning (08/16/18), but denies any weakness, per patient he tells me he can move his right arm now but denies weakness this morning. Per he was then sitting on the chair when he started gasping for air, his eyes rolled back but denies any tonic clonic movements of the extremities, tongue bite, urinary incontinence or post ictal state, the whole event lasted for about a min or so per , but patient does not remember the event, denies any witnessed seizure, patient probably had something similar event about 2-3 months ago and per documentation at that time he was brought to the ED at that time on May 19 2018 with near-syncope, he never had seizures in the past. At present patient denies any PHAN, visual disturbances, speech disturbances, focal motor weakness or sensory loss. Patient not sure how long did he have right arm numbness, but at present he feels his numbness has improved, denies any neck pain or radicular symptoms, lives with his , does not drive, may use cane for ambulating and does need some assistance for his ADLs. Is on Ciprofloxacin for diverticulitis and per patient he has been off of his ASA lately. [] Past Medical History Past Medical History (Chronic Problems): Chronic Problems (Last Reviewed 05/14/18 @ 13:00 by Kane Mcpherson MD) Angina pectoris (Chronic) Encounter for long-term current use of high risk medication (Chronic) Hypothyroidism (Chronic) Essential hypertension (Chronic) Hyperlipidemia (Chronic) Esophageal reflux (Chronic) Diverticulosis of colon (Chronic) Type II diabetes mellitus (Chronic) Coronary atherosclerosis of [place] coronary artery (Chronic) [facility] with stent to ramus 10/31/10 Chronic kidney disease (Chronic) Hypertensive chronic kidney disease (Chronic) Atherosclerosis of aorta (Chronic) Medical History: Medical History (Last Reviewed 05/14/18 @ 13:00 by Kane Mcpherson MD) Essential hypertension (Chronic) I10 Hyperlipidemia (Chronic) E78.5 Coronary atherosclerosis of [place] coronary artery (Chronic) I25.10 [facility] with stent to ramus 10/31/10 Chronic kidney disease (Chronic) N18.9 Allergies clopidogrel bisulfate [From Plavix] Allergy (Verified 08/16/18 11:32) Rash cyclobenzaprine [Cyclobenzaprine] Allergy (Verified 08/16/18 11:32) Rash fluoxetine HCl [From Prozac] Allergy (Verified 08/16/18 11:32) Rash Home Medications: Ambulatory Orders Medication Instructions Recorded Aspirin [Aspirin, Baby] 81 mg PO DAILY@0800 08/15/13 Levothyroxine [Synthroid] 112 mcg PO DAILY 08/15/13 Omeprazole [Prilosec] 20 mg PO DAILY 06/26/16 lisinopril 5 mg tablet 5 mg PO DAILY #30 tab 10/24/17 nitroglycerin 0.4 mg sublingual 0.4 mg SUBLINGUAL Q5M PRN #25 tab 10/24/17 tablet Allopurinol [Zyloprim] 100 mg PO DAILY 08/16/18 Ciprofloxacin HCl 500 mg PO BID 08/16/18 Metformin HCl 500 mg PO DAILY 08/16/18 Metoprolol Succinate [Toprol Xl] 50 mg PO DAILY 08/16/18 Metronidazole [Flagyl] 500 mg PO Q8H 08/16/18 Surgical History: Surgical History (Last Reviewed 05/14/18 @ 13:00 by Kane Mcpherson MD) toenail removed (Resolved) History of back surgery (Resolved) Z98.890 Hx of cholecystectomy (Resolved) Z90.49 H/O percutaneous transluminal coronary angioplasty (Resolved) Z98.61 [facility] with stent to ramus 10/31/10 Surgical History: cholecystectomy, - - back Lives: Spouse/ Significant Other Smoking Status: Never smoker Alcohol: None Drugs: None - *Family History Maternal Family History: Family History (Last Reviewed 05/14/18 @ 13:00 by Kane Mcpherson MD) Father Diabetes Mother No problems noted. History Items: Diabetes Paternal Family History: Family History (Last Reviewed 05/14/18 @ 13:00 by Kane Mcpherson MD) Father Diabetes Mother No problems noted. History Items: Diabetes Review of Systems Constitutional: Reports: - - complete ROS negative except as documented in HPI Patient Problems: Active and Suspected Problems (Last Reviewed 05/14/18 @ 13:00 by Kane Mcpherson MD) Seizure (Acute) RUE weakness (Acute) Right arm numbness (Acute) - Physical Exam General: Alert HEENT: Normocephalic Neck: Supple Lungs: Normal air movement Cardiovascular: Normal S1, Normal S2 Abdomen: Bowel Sounds Present Extremities: No cyanosis Neurological: - - consious, alert, AoA x3, CN 2-12 grossly intact, power 5/5 all 4 extremities, no sensory loss, no cerebellar signs, gait deferred, Reflexes + B/L B/S/T/K/A, NIHSS 0, mRS 2 at baseline Psych/Mental Status: Normal Affect Vital Signs Temp Pulse Resp BP Pulse Ox 97.5 F L 92 14 128/70 H 98 08/16/18 11:29 08/16/18 14:35 08/16/18 14:35 08/16/18 14:35 08/16/18 14:35 Oxygen Delivery Method Room Air Weight: 75.296 kg Body Mass Index (BMI) 25.2 Laboratory Tests Past 24 Hrs 08/16/18 08/16/18 08/16/18 12:40 12:40 12:40 WBC 7.3 RBC 4.25 L Hgb 12.6 L Hct 38.7 L MCV 91.1 MCH 29.6 MCHC 32.6 RDW 13.4 RDW Differential 44.0 H Plt Count 172 MPV 11.0 Immature Gran % (Auto) 0.400 Neut % (Auto) 76.6 H Lymph % (Auto) 8.7 L [place] % (Auto) 13.8 H Eos % (Auto) 0.4 Baso % (Auto) 0.1 Absolute Neuts (auto) 5.6 Absolute Lymphs (auto) 0.63 L Total Counted Not Reportable PT 15.1 H INR 1.2 APTT 31.3 Sodium 137 Potassium 3.9 Chloride 105 Carbon Dioxide 23.0 Anion Gap 9 BUN 23 H Creatinine 2.00 H Estim Creat Clear Calc 26.60 Est GFR (MDRD) Af Amer 41 L Est GFR (MDRD) Non-Af 34 L BUN/Creatinine Ratio 11.5 Glucose 224 H Calcium 8.6 Troponin I < 0.015 Assessment/Plan All Active Problems (Last Reviewed 05/14/18 @ 13:00 by Kane Mcpherson MD) Seizure (Acute) RUE weakness (Acute) Right arm numbness (Acute) toenail removed (Resolved) History of back surgery (Resolved) Hx of cholecystectomy (Resolved) H/O percutaneous transluminal coronary angioplasty (Resolved) The patient is a 83 year old M with PMH HTN, HLD, DM, DM neuropathy, CKD, CAD s/p stents, hypothyroidism, gout admitted with right arm numbness. Patient and his are poor historians. Per patient he felt right arm numbness around 9 am this morning (08/16/18), but denies any weakness, per patient he tells me he can move his right arm now but denies weakness this morning. Per he was then sitting on the chair when he started gasping for air, his eyes rolled back but denies any tonic clonic movements of the extremities, tongue bite, urinary incontinence or post ictal state, the whole event lasted for about a min or so per , but patient does not remember the event, denies any witnessed seizure, patient probably had something similar event about 2-3 months ago and per documentation at that time he was brought to the ED at that time on May 19 2018 with near-syncope, he never had seizures in the past. At present patient denies any PHAN, visual disturbances, speech disturbances, focal motor weakness or sensory loss. Patient not sure how long did he have right arm numbness, but at present he feels his numbness has improved, denies any neck pain or radicular symptoms, lives with his , does not drive, may use cane for ambulating and does need some assistance for his ADLs. Is on Ciprofloxacin for diverticulitis and per patient he has been off of his ASA lately. Impression ? TIA Possible Near Syncope vs Syncope, Unlikely to be seizure at present Plan -Check MRI Brain w/o contrast, MRA head/neck and MRI C spine w/o contrast -Check EEG -At present patient's description of spell less likely to be seizure, would hold off on AED. But may avoid antibiotics like ciprofloxacin which can lower seizure threshold, avoid tramadol or Wellbutrin -Seizure precautions. Patient does not drive. -On ASA and Lipitor -TTE, LDL and Hba1c -PT/OT -Further medical management per hospitalist team -GI/DVT prophylaxis -Please call with questions if any -Thank you for allowing us to participate in patient's care and management Code Visit Inpatient E&M: 91139 Init Hosp L3
--- NOTE | 2018-08-16 15:03 | PCM.HP.STD ---
<Philip Miller - Last Filed: 08/16/18 15:03> History of Present Illness Date of Admission: 08/16/18 Chief Complaint: syncope The patient is a 83 year old M with pmhx of chronic vertigo, orthostatic syncope, CKDIII, CAD (prior stent), hypotyhroidism, DMt2, HTN, and gout who presents to the ER with c/o syncope today. He states he got out of the shower, sat down in a chair and thought his right arm went numb. After about 10 minutes he suddenly rolled his head back, lost consciousness, and was gasping for breath. His thought he was having a seizure and brought him to the ER. There was no muscle contraction, no loss of continence, biting of the tongue, and no post ictal phase. He also recovered after about a minute per the , and he recovered the sensation in his right arm. He does not remember what happened. He has had a similar episode - he got out of the shower and lost consciousness. He also was in the ER in 05/28 with syncope on the commode while doing a bowel prep. Also of note, he is currently being treated with cipro and flagyl for a diverticulitis flair - started abx on sunday. He currently has some pain around his hydrocele, however no other abdominal pain. He has been on a clear liquid diet this week and has had diarrhea. Some nausea, no vomiting. He has no headache, dizziness, focal weakness, or numbness in the ER now. He stopped taking baby aspirin several months ago, it is unclear why. [] Past Medical History Past Medical History (Chronic Problems): Chronic Problems (Last Reviewed 05/14/18 @ 13:00 by Kane Mcpherson MD) Angina pectoris (Chronic) Encounter for long-term current use of high risk medication (Chronic) Hypothyroidism (Chronic) Essential hypertension (Chronic) Hyperlipidemia (Chronic) Esophageal reflux (Chronic) Diverticulosis of colon (Chronic) Type II diabetes mellitus (Chronic) Coronary atherosclerosis of [place] coronary artery (Chronic) [facility] [place] with stent to ramus 10/31/10 Chronic kidney disease (Chronic) Hypertensive chronic kidney disease (Chronic) Atherosclerosis of aorta (Chronic) Medical History: Medical History (Last Reviewed 05/14/18 @ 13:00 by Kane Mcpherson MD) Essential hypertension (Chronic) I10 Hyperlipidemia (Chronic) E78.5 Coronary atherosclerosis of [place] coronary artery (Chronic) I25.10 [facility] [place] with stent to ramus 10/31/10 Chronic kidney disease (Chronic) N18.9 Allergies clopidogrel bisulfate [From Plavix] Allergy (Verified 08/16/18 11:32) Rash cyclobenzaprine [Cyclobenzaprine] Allergy (Verified 08/16/18 11:32) Rash fluoxetine HCl [From Prozac] Allergy (Verified 08/16/18 11:32) Rash Home Medications: Ambulatory Orders Medication Instructions Recorded Aspirin [Aspirin, Baby] 81 mg PO DAILY@0800 08/15/13 Levothyroxine [Synthroid] 112 mcg PO DAILY 08/15/13 Omeprazole [Prilosec] 20 mg PO DAILY 06/26/16 lisinopril 5 mg tablet 5 mg PO DAILY #30 tab 10/24/17 nitroglycerin 0.4 mg sublingual 0.4 mg SUBLINGUAL Q5M PRN #25 tab 10/24/17 tablet Allopurinol [Zyloprim] 100 mg PO DAILY 08/16/18 Ciprofloxacin HCl 500 mg PO BID 08/16/18 Metformin HCl 500 mg PO DAILY 08/16/18 Metoprolol Succinate [Toprol Xl] 50 mg PO DAILY 08/16/18 Metronidazole [Flagyl] 500 mg PO Q8H 08/16/18 Surgical History: Surgical History (Last Reviewed 05/14/18 @ 13:00 by Kane Mcpherson MD) toenail removed (Resolved) History of back surgery (Resolved) Z98.890 Hx of cholecystectomy (Resolved) Z90.49 H/O percutaneous transluminal coronary angioplasty (Resolved) Z98.61 [facility] [place] with stent to ramus 10/31/10 Surgical History: cholecystectomy, - - back Psychiatric History: No pertinent psych hx Lives: Spouse/ Significant Other Smoking Status: Never smoker Tobacco Use: Non-smoker Alcohol: None Drugs: None - *Family History Maternal Family History: Family History (Last Reviewed 05/14/18 @ 13:00 by Kane Mcpherson MD) Father Diabetes Mother No problems noted. History Items: Diabetes Paternal Family History: Family History (Last Reviewed 05/14/18 @ 13:00 by Kane Mcpherson MD) Father Diabetes Mother No problems noted. History Items: Diabetes Review of Systems Constitutional: Denies: Chills, Fever, Weight Change HEENT: Denies: Head Aches, Sinus Congestion, Sinus Drainage Cardiovascular: Reports: Syncope. Denies: Chest Pain, Palpitations Respiratory: Denies: Cough, Shortness of breath at rest, Sputum production Gastrointestinal: Reports: Abdominal Pain - suprapubic around hydrocele, Nausea. Denies: Vomiting Genitourinary: Denies: Dysuria Musculoskeletal: Denies: Joint Pain, Joint Tenderness Skin: Denies: Rash, Wounds Neurological: Denies: Balance problems, Blurred vision, Double vision, Change in Speech, Slurred speech, Confusion, Difficulty swallowing, Focal weakness, Headaches, Numbness, Tingling, Tremor, Seizures Psychiatric: Denies: Anxiety, Depression, Homicidal Ideations, Suicidal Ideations Hematologic/ Lymphatic: Denies: Easy Bruising, Easy Bleeding VTE Information - Inpt Only VTE Present on Admission: No VTE Mechan Device Prophylaxis: None VTE Pharm Prophylaxis ordered?: Yes Patient Problems: Active and Suspected Problems (Last Reviewed 05/14/18 @ 13:00 by Kane Mcpherson MD) Seizure (Acute) RUE weakness (Acute) Right arm numbness (Acute) - Physical Exam General: Alert, Oriented x3, Cooperative HEENT: Atraumatic, PERRLA, EOMI, Normocephalic Neck: Supple, No JVD, Negative Carotid Bruits Lungs: Clear to auscultation, Normal air movement Cardiovascular: Regular rate, No murmurs Abdomen: Bowel Sounds Present, Soft, Non Tender Extremities: No edema, Capillary Refill Less than 3 Seconds Skin: No rashes, No breakdown Musculoskeletal: No Tenderness to Palpation of Joints or Extremities Neurological: Cranial nerves II-XII grossly intact Psych/Mental Status: Normal Affect, Appropriate, Alert and oriented to time, place, person, mood and affect Vital Signs Temp Pulse Resp BP Pulse Ox 97.5 F L 92 14 128/70 H 98 08/16/18 11:29 08/16/18 14:35 08/16/18 14:35 08/16/18 14:35 08/16/18 14:35 Oxygen Delivery Method Room Air Weight: 166 lb Body Mass Index (BMI) 25.2 Laboratory Tests Past 24 Hrs 08/16/18 08/16/18 08/16/18 12:40 12:40 12:40 WBC 7.3 RBC 4.25 L Hgb 12.6 L Hct 38.7 L MCV 91.1 MCH 29.6 MCHC 32.6 RDW 13.4 RDW Differential 44.0 H Plt Count 172 MPV 11.0 Immature Gran % (Auto) 0.400 Neut % (Auto) 76.6 H Lymph % (Auto) 8.7 L [place] % (Auto) 13.8 H Eos % (Auto) 0.4 Baso % (Auto) 0.1 Absolute Neuts (auto) 5.6 Absolute Lymphs (auto) 0.63 L Total Counted Not Reportable PT 15.1 H INR 1.2 APTT 31.3 Sodium 137 Potassium 3.9 Chloride 105 Carbon Dioxide 23.0 Anion Gap 9 BUN 23 H Creatinine 2.00 H Estim Creat Clear Calc 26.60 Est GFR (MDRD) Af Amer 41 L Est GFR (MDRD) Non-Af 34 L BUN/Creatinine Ratio 11.5 Glucose 224 H Calcium 8.6 Troponin I < 0.015 Assessment/Plan All Active Problems (Last Reviewed 05/14/18 @ 13:00 by Kane Mcpherson MD) Seizure (Acute) RUE weakness (Acute) Right arm numbness (Acute) toenail removed (Resolved) History of back surgery (Resolved) Hx of cholecystectomy (Resolved) H/O percutaneous transluminal coronary angioplasty (Resolved) 1. Syncope - concerning for CVA with LOC and RUE transient numbness. Initially thought he had a seizure however he did not have any shaking, post ictal phase, incontinence, tongue biting, and no hx of seizures. He does have a hx of orthostatic / vasovagal syncope and chronic vertigo. It is concerning that he has been on cipro which can lower the seizure threshold however. In addition the cipro is for diverticulitis, and he has been on a clear diet and has had loose stools this week. CT brain negative Obtain MRI brain/MRA head and neck, Obtain Echo, Obtain EEG Check orthostatic vitals Provide IV fluids Neuro consulted, already evaluated the patient in the ER. Restart baby aspirin (been off for several months) Start statin PT/OT/ST evals. 2. Partialy treated Acute diverticulitis - symptoms have greatly improved, this is day 4 of Abx. DC cipro flagyl and provide augmentin x 1 more day for 5 days total therapy. Advance diet as tolerated. Antiemetics and pain control as needed 3. CAD - prior stent - start statin, restart aspirin, continue geovanny, toprol 4. CKDIII - BUN/Cr are elevated, however does not appear significantly up since prior studies 5. DMt2 - hold metformin, SSI 6. Hypothyroid - check tsh 7. Hydrocele - urology follow up as outpatient DVT ppx: Heparin DC planning: ptot evals. This patient was seen by Philip Miller PA-C under the supervision of Doctor London. <Panchito Callahan - Last Filed: 08/16/18 15:54> Problem List (1) RUE weakness Status: Acute History of Present Illness Chief Complaint: syncope. right arm numbness. The patient is a 83 year old M who had a shower today and then experiencing right arm numbness. Subsequently, patient started gasping for breath and then was unresponsive. EMS was contacted and by the time the got back, the patient was awake and alert. Patient has similar episode earlier this year where he was in for breath and passed out. Spell that was due to his blood sugar as he was drinking Gatorade. [] Past Medical History Medical History: Medical History (Last Reviewed 08/16/18 @ 15:45 by Panchito Callahan DO) Essential hypertension (Chronic) I10 Hyperlipidemia (Chronic) E78.5 Coronary atherosclerosis of [place] coronary artery (Chronic) I25.10 [facility] [place] with stent to ramus 10/31/10 Chronic kidney disease (Chronic) N18.9 Allergies clopidogrel bisulfate [From Plavix] Allergy (Verified 08/16/18 11:32) Rash cyclobenzaprine [Cyclobenzaprine] Allergy (Verified 08/16/18 11:32) Rash fluoxetine HCl [From Prozac] Allergy (Verified 08/16/18 11:32) Rash Surgical History: Surgical History (Last Reviewed 08/16/18 @ 15:45 by Panchito Callahan DO) toenail removed (Resolved) History of back surgery (Resolved) Z98.890 Hx of cholecystectomy (Resolved) Z90.49 H/O percutaneous transluminal coronary angioplasty (Resolved) Z98.61 [facility] [place] with stent to ramus 10/31/10 Surgical History: cholecystectomy, - Psychiatric History: No pertinent psych hx Lives: Spouse/ Significant Other Smoking Status: Never smoker Tobacco Use: Non-smoker Alcohol: None Drugs: None - *Family History Maternal Family History: Family History (Last Reviewed 08/16/18 @ 15:46 by Panchito Callahan DO) Father Diabetes Mother No problems noted. Paternal Family History: Family History (Last Reviewed 08/16/18 @ 15:46 by Panchito Callahan DO) Father Diabetes Mother No problems noted. Review of Systems Constitutional: Denies: Chills, Fever, Weight Change HEENT: Denies: Head Aches, Sinus Congestion, Sinus Drainage Cardiovascular: Reports: Syncope. Denies: Chest Pain, Palpitations Respiratory: Denies: Cough, Shortness of breath at rest, Sputum production Gastrointestinal: Reports: Abdominal Pain, Nausea. Denies: Vomiting Genitourinary: Denies: Dysuria Musculoskeletal: Denies: Joint Pain, Joint Tenderness Skin: Denies: Rash, Wounds Neurological: Denies: Balance problems, Blurred vision, Double vision, Change in Speech, Slurred speech, Confusion, Difficulty swallowing, Focal weakness, Headaches, Numbness, Tingling, Tremor, Seizures Psychiatric: Denies: Anxiety, Depression, Homicidal Ideations, Suicidal Ideations Hematologic/ Lymphatic: Denies: Easy Bruising, Easy Bleeding VTE Information - Inpt Only VTE Present on Admission: No VTE Mechan Device Prophylaxis: None VTE Pharm Prophylaxis ordered?: Yes - Physical Exam General: Alert, Cooperative HEENT: Atraumatic, PERRLA, EOMI, Normocephalic Neck: No Nodes, Thyroid Normal Size and Texture Lungs: Clear to auscultation, Normal air movement, No rhonchi, No wheeze Cardiovascular: Regular rate, Regular Rhythm, Normal S1, Normal S2, No murmurs Abdomen: Bowel Sounds Present, Soft, Non Tender, Non-Distended Extremities: No edema, No Calf Tenderness, - - Tophi noted on 1 of his toes. Also has a tophi on his right lateral arm. Skin: No rashes, No breakdown Musculoskeletal: No Tenderness to Palpation of Joints or Extremities, No Muscle Wasting Neurological: Cranial nerves II-XII grossly intact, Deep Tendon Reflexes 2+/4 and Symmetrical, - - Slight left upper extremity drift. Psych/Mental Status: Normal Affect, Appropriate Vital Signs Temp Pulse Resp BP Pulse Ox 36.4 C L 107 H 20 H 151/90 H 98 08/16/18 11:29 08/16/18 15:39 08/16/18 15:39 08/16/18 15:39 08/16/18 15:39 Oxygen Delivery Method Room Air Weight: 75.296 kg Body Mass Index (BMI) 25.2 Laboratory Tests Past 24 Hrs 08/16/18 08/16/18 08/16/18 12:40 12:40 12:40 WBC 7.3 RBC 4.25 L Hgb 12.6 L Hct 38.7 L MCV 91.1 MCH 29.6 MCHC 32.6 RDW 13.4 RDW Differential 44.0 H Plt Count 172 MPV 11.0 Immature Gran % (Auto) 0.400 Neut % (Auto) 76.6 H Lymph % (Auto) 8.7 L [place] % (Auto) 13.8 H Eos % (Auto) 0.4 Baso % (Auto) 0.1 Absolute Neuts (auto) 5.6 Absolute Lymphs (auto) 0.63 L Total Counted Not Reportable PT 15.1 H INR 1.2 APTT 31.3 Sodium 137 Potassium 3.9 Chloride 105 Carbon Dioxide 23.0 Anion Gap 9 BUN 23 H Creatinine 2.00 H Estim Creat Clear Calc 26.60 Est GFR (MDRD) Af Amer 41 L Est GFR (MDRD) Non-Af 34 L BUN/Creatinine Ratio 11.5 Glucose 224 H Calcium 8.6 Troponin I < 0.015 Assessment/Plan Patient seen and examined independently. Data reviewed. I agree with the above note by the physician learning support assistant. 1. Suspected syncope: Patient has known history of orthostatic hypotension and patient just got out of a hot shower and feel this probably more of a vasovagal type episode. Nonetheless, patient had been on Cipro recently for recent diverticulitis which can lower the seizure threshold so patient will undergo workup in regards to evaluate for possible seizure including EEG. 2. Right upper extremity paresthesias and weakness: Concern for stroke. Patient did grow a stroke workup with an MRI of the brain, MRA of the head and neck. Check an echocardiogram continue neurology consultation, physical occupational therapy evaluate. Patient already on aspirin. 3. Diverticulitis: Is unclear completely that this was not a seizure, will change patient's antibiotics over to Augmentin as ciprofloxacin is known to lower the seizure threshold. 4. Gout: Patient is on allopurinol grams daily and has tophi that have been unchanged. The patient's chronic kidney disease, increasing his allopurinol would not be advised. I did advise to he and his that he up with rheumatology for evaluation to see if he would be a candidate for febuxostat. Patient states that he gets a flareup every week, seems to dispute that saying that every couple months. On his handwritten medication list, its written to hold allopurinol while he is on prednisone for his flareups. I explained to him that it is okay for him to continue allopurinol while he does have a flareup. Allopurinol is not advised to be initiated when some has a flareup is not been on allopurinol previously. Code Visit Inpatient E&M: 46410 Init Hosp L3
--- NOTE | 2018-08-16 15:04 | CON.PCM_ITS ---
Problem List (1) Right arm numbness Status: Acute Reason for Consult Date of Consultation: 08/16/18 Reason for Consultation: Right arm numbness History of Present Illness: The patient is a 83 year old M with PMH HTN, HLD, DM, DM neuropathy, CKD, CAD s/p stents, hypothyroidism, gout admitted with right arm numbness. Patient and his are poor historians. Per patient he felt right arm numbness around 9 am this morning (08/16/18), but denies any weakness, per patient he tells me he can move his right arm now but denies weakness this morning. Per he was then sitting on the chair when he started gasping for air, his eyes rolled back but denies any tonic clonic movements of the extremities, tongue bite, urinary incontinence or post ictal state, the whole event lasted for about a min or so per , but patient does not remember the event, denies any witnessed seizure, patient probably had something similar event about 2-3 months ago and per documentation at that time he was brought to the ED at that time on May 19 2018 with near-syncope, he never had seizures in the past. At present patient denies any PHAN, visual disturbances, speech disturbances, focal motor weakness or sensory loss. Patient not sure how long did he have right arm numbness, but at present he feels his numbness has improved, denies any neck pain or radicular symptoms, lives with his , does not drive, may use cane for ambulating and does need some assistance for his ADLs. Is on Ciprofloxacin for diverticulitis and per patient he has been off of his ASA lately. [] Past Medical History Past Medical History (Chronic Problems): Chronic Problems (Last Reviewed 05/14/18 @ 13:00 by Kane Mcpherson MD) Angina pectoris (Chronic) Encounter for long-term current use of high risk medication (Chronic) Hypothyroidism (Chronic) Essential hypertension (Chronic) Hyperlipidemia (Chronic) Esophageal reflux (Chronic) Diverticulosis of colon (Chronic) Type II diabetes mellitus (Chronic) Coronary atherosclerosis of [place] coronary artery (Chronic) [facility] with stent to ramus 10/31/10 Chronic kidney disease (Chronic) Hypertensive chronic kidney disease (Chronic) Atherosclerosis of aorta (Chronic) Medical History: Medical History (Last Reviewed 05/14/18 @ 13:00 by Kane Mcpherson MD) Essential hypertension (Chronic) I10 Hyperlipidemia (Chronic) E78.5 Coronary atherosclerosis of [place] coronary artery (Chronic) I25.10 [facility] with stent to ramus 10/31/10 Chronic kidney disease (Chronic) N18.9 Allergies clopidogrel bisulfate [From Plavix] Allergy (Verified 08/16/18 11:32) Rash cyclobenzaprine [Cyclobenzaprine] Allergy (Verified 08/16/18 11:32) Rash fluoxetine HCl [From Prozac] Allergy (Verified 08/16/18 11:32) Rash Home Medications: Ambulatory Orders Medication Instructions Recorded Aspirin [Aspirin, Baby] 81 mg PO DAILY@0800 08/15/13 Levothyroxine [Synthroid] 112 mcg PO DAILY 08/15/13 Omeprazole [Prilosec] 20 mg PO DAILY 06/26/16 lisinopril 5 mg tablet 5 mg PO DAILY #30 tab 10/24/17 nitroglycerin 0.4 mg sublingual 0.4 mg SUBLINGUAL Q5M PRN #25 tab 10/24/17 tablet Allopurinol [Zyloprim] 100 mg PO DAILY 08/16/18 Ciprofloxacin HCl 500 mg PO BID 08/16/18 Metformin HCl 500 mg PO DAILY 08/16/18 Metoprolol Succinate [Toprol Xl] 50 mg PO DAILY 08/16/18 Metronidazole [Flagyl] 500 mg PO Q8H 08/16/18 Surgical History: Surgical History (Last Reviewed 05/14/18 @ 13:00 by Kane Mcpherson MD) toenail removed (Resolved) History of back surgery (Resolved) Z98.890 Hx of cholecystectomy (Resolved) Z90.49 H/O percutaneous transluminal coronary angioplasty (Resolved) Z98.61 [facility] with stent to ramus 10/31/10 Surgical History: cholecystectomy, - - back Lives: Spouse/ Significant Other Smoking Status: Never smoker Alcohol: None Drugs: None - *Family History Maternal Family History: Family History (Last Reviewed 05/14/18 @ 13:00 by Kane Mcpherson MD) Father Diabetes Mother No problems noted. History Items: Diabetes Paternal Family History: Family History (Last Reviewed 05/14/18 @ 13:00 by Kane Mcpherson MD) Father Diabetes Mother No problems noted. History Items: Diabetes Review of Systems Constitutional: Reports: - - complete ROS negative except as documented in HPI Patient Problems: Active and Suspected Problems (Last Reviewed 05/14/18 @ 13:00 by Kane Mcpherson MD) Seizure (Acute) RUE weakness (Acute) Right arm numbness (Acute) - Physical Exam General: Alert HEENT: Normocephalic Neck: Supple Lungs: Normal air movement Cardiovascular: Normal S1, Normal S2 Abdomen: Bowel Sounds Present Extremities: No cyanosis Neurological: - - consious, alert, AoA x3, CN 2-12 grossly intact, power 5/5 all 4 extremities, no sensory loss, no cerebellar signs, gait deferred, Reflexes + B/L B/S/T/K/A, NIHSS 0, mRS 2 at baseline Psych/Mental Status: Normal Affect Vital Signs Temp Pulse Resp BP Pulse Ox 97.5 F L 92 14 128/70 H 98 08/16/18 11:29 08/16/18 14:35 08/16/18 14:35 08/16/18 14:35 08/16/18 14:35 Oxygen Delivery Method Room Air Weight: 75.296 kg Body Mass Index (BMI) 25.2 Laboratory Tests Past 24 Hrs 08/16/18 08/16/18 08/16/18 12:40 12:40 12:40 WBC 7.3 RBC 4.25 L Hgb 12.6 L Hct 38.7 L MCV 91.1 MCH 29.6 MCHC 32.6 RDW 13.4 RDW Differential 44.0 H Plt Count 172 MPV 11.0 Immature Gran % (Auto) 0.400 Neut % (Auto) 76.6 H Lymph % (Auto) 8.7 L [place] % (Auto) 13.8 H Eos % (Auto) 0.4 Baso % (Auto) 0.1 Absolute Neuts (auto) 5.6 Absolute Lymphs (auto) 0.63 L Total Counted Not Reportable PT 15.1 H INR 1.2 APTT 31.3 Sodium 137 Potassium 3.9 Chloride 105 Carbon Dioxide 23.0 Anion Gap 9 BUN 23 H Creatinine 2.00 H Estim Creat Clear Calc 26.60 Est GFR (MDRD) Af Amer 41 L Est GFR (MDRD) Non-Af 34 L BUN/Creatinine Ratio 11.5 Glucose 224 H Calcium 8.6 Troponin I < 0.015 Assessment/Plan All Active Problems (Last Reviewed 05/14/18 @ 13:00 by Kane Mcpherson MD) Seizure (Acute) RUE weakness (Acute) Right arm numbness (Acute) toenail removed (Resolved) History of back surgery (Resolved) Hx of cholecystectomy (Resolved) H/O percutaneous transluminal coronary angioplasty (Resolved) The patient is a 83 year old M with PMH HTN, HLD, DM, DM neuropathy, CKD, CAD s/p stents, hypothyroidism, gout admitted with right arm numbness. Patient and his are poor historians. Per patient he felt right arm numbness around 9 am this morning (08/16/18), but denies any weakness, per patient he tells me he can move his right arm now but denies weakness this morning. Per he was then sitting on the chair when he started gasping for air, his eyes rolled back but denies any tonic clonic movements of the extremities, tongue bite, urinary incontinence or post ictal state, the whole event lasted for about a min or so per , but patient does not remember the event, denies any witnessed seizure, patient probably had something similar event about 2-3 months ago and per documentation at that time he was brought to the ED at that time on May 19 2018 with near-syncope, he never had seizures in the past. At present patient denies any PHAN, visual disturbances, speech disturbances, focal motor weakness or sensory loss. Patient not sure how long did he have right arm numbness, but at present he feels his numbness has improved, denies any neck pain or radicular symptoms, lives with his , does not drive, may use cane for ambulating and does need some assistance for his ADLs. Is on Ciprofloxacin for diverticulitis and per patient he has been off of his ASA lately. Impression ? TIA Possible Near Syncope vs Syncope, Unlikely to be seizure at present Plan -Check MRI Brain w/o contrast, MRA head/neck and MRI C spine w/o contrast -Check EEG -At present patient's description of spell less likely to be seizure, would hold off on AED. But may avoid antibiotics like ciprofloxacin which can lower seizure threshold, avoid tramadol or Wellbutrin -Seizure precautions. Patient does not drive. -On ASA and Lipitor -TTE, LDL and Hba1c -PT/OT -Further medical management per hospitalist team -GI/DVT prophylaxis -Please call with questions if any -Thank you for allowing us to participate in patient's care and management Code Visit Inpatient E&M: 70689 Init Hosp L3
[2018-08-16] MEDS: Aspirin 325 MG Tablet PO (15:09)
--- NOTE | 2018-08-16 15:57 | ECHOCS_ITS ---
Reason For Study: TIA/CVA Procedure This was a 2D Doppler, Color Flow transthoracic echocardiogram. The study was technically difficult. Exam performed portable in patient room. Left Ventricle Normal LV size. Moderate concentric left ventricular hypertrophy. Left ventricular systolic function is normal. The estimated ejection fraction is 65 %. Stage 1 diastolic dysfunction. No regional wall motion abnormalities noted. Right Ventricle Normal RV size. Normal systolic function. Atria Normal left atrium. Normal right atrium. Bubble contrast study negative for right to left interatrial shunt. Mitral Valve Mitral valve not well visualized. Tricuspid Valve Normal tricuspid valve. Mild (1+) tricuspid valve insufficiency. Pulmonary artery systolic pressure is 35 mmHg. Aortic Valve Normal aortic valve. Pulmonic Valve The pulmonic valve is not well visualized. Great Vessels Normal aortic root. The pulmonary artery is normal size. Normal inferior vena cava. Pericardium/Pleural No pericardial effusion. Medication Definity0.2ml given slow IV push to enhance endocardial definition. Performed a rapid injection of agitated mix of 9 cc saline and 1cc air to assess for atrial septal defect. MMode/2D Measurements & Calculations LVIDd: 3.4 cm IVSd: 1.4 cm Ao root diam: 3.2 cm LVIDs: 1.9 cm LVPWd: 1.3 cm RVDd: 3.4 cm FS: 44.7 % LAV(MOD-bp): 29.2 ml LVAd ap4: 23.0 cm2 SV(MOD-sp4): 39.4 ml LAV(MOD-bp) Indexed: 15.5 ml/m2 EDV(MOD-sp4): 54.3 ml LAV(MOD-sp2): 26.5 ml EDV(sp4-el): 58.0 ml LAV(MOD-sp4): 26.4 ml LVAs ap4: 10.6 cm2 ESV(MOD-sp4): 15.0 ml ESV(sp4-el): 15.8 ml EF(MOD-sp4): 72.5 % EF(sp4-el): 72.8 % SV(sp4-el): 42.2 ml LA A4 area: 13.2 cm2 LA dimension(2D): 3.7 cm RA A4 area: 7.9 cm2 Doppler Measurements & Calculations MV E max francisco: 66.1 cm/sec Lat Peak E' Francisco: 5.1 cm/sec Med Peak E' Francisco: 4.9 cm/sec MV A max francisco: 112.9 cm/sec E/E' lat: 13.0 E/E' med: 13.5 MV E/A: 0.59 Ao V2 max: 139.6 cm/sec LV V1 max: 122.1 cm/sec PA V2 max: 133.9 cm/sec Ao max P.8 mmHg LV V1 max P.0 mmHg Ao V2 mean: 112.5 cm/sec Ao mean P.3 mmHg Ao V2 VTI: 24.2 cm TR max francisco: 278.8 cm/sec TR max P.1 mmHg Interpretation Summary Normal LV size. Moderate concentric left ventricular hypertrophy. Left ventricular systolic function is normal. The estimated ejection fraction is 65 %. Mild (1+) tricuspid valve insufficiency. Pulmonary artery systolic pressure is 35 mmHg. Stage 1 diastolic dysfunction. Contrast injection was performed. Ordering Physician: Panchito Callahan Referring Physician: Mike Salas Performed By: Erna Hess, SPIKE, RVT
--- NOTE | 2018-08-16 16:08 | CASEMGMT ---
RN CM Assessment Introduced role of RN CM to patient and at bedside. Patient is alert, oriented and able to participate in RN CM Assessment. Care providers, pharmacy, and demographics verified. Presentation: Admitted for Seizure. CC: Patient dz with Diverticulitis and on Abx, in recliner when noticed seizure like activity- no h/o Seizures. C/o numbness to RUE. Barriers: Per the last time that patient was in the hospital they received a Lg bill for the medications that were administered in the hospital and states that they are on a fixed income and cannot take any medications from the hospital. CM advised discussing with nurse and hospitalist about taking own home medications that are prescribed while in the hospital and advised to ask to s/w Financial Services or Insurance Carrier regarding the cost while in the hospital. PCP: Dr Mike Naylor Specialists: Cardio- Dr Mark Preferred Pharmacy: [facility] Insurance: [employer] HMO Prescription Benefit: Yes LNOK: [facility] Living Arrangements: Lives with in a SS Home, 2 steps to enter. Independent with ambulation but uses a Cane sometimes, independent with ADL's but does assist with bathing. Transportation: Anum and to transport on DC. DME: Cane, Glucometer. No preference on Company. HHC: None in past, No preference on Agency. SNF: None in past, No preference on Facility. DC PLAN: Home with no anticipated needs. HECTOR To
[2018-08-17] VITALS (13 sets, daily range): BP systolic 97–144; BP diastolic 53–89; PULSE 90–139; RESP 18–19; TEMP 36.2–36.7; O2SAT 96–99
[2018-08-17 06:53] LABS: Anion Gap 10 (5-15); BUN 18 mg/dL (7-18); BUN/Creat Ratio 10.2 RATIO (10-20); Calcium,Total 8.4 mg/dL (8.5-10.1); Chloride 109 mmol/L (98-107); Cholesterol 112 mg/dL (200); Creatinine, Serum 1.76 mg/dL (0.70-1.30); EST Glomerular Filtration Rate 39 mL/min (>60); Est Glom Filt Rate - Afr Amer 48 mL/min (>60); Estimated Creatinine Clearance 30.23 ml/min; Glucose 202 mg/dL (74-106); High Density Lipoprotein 42 mg/dL; Potassium 4.1 mmol/L (3.5-5.1); Sodium Level 142 mmol/L (136-145); Triglycerides 73 mg/dL; Very Low Density Lipoprotein 15 mg/dL (5-40)
--- NOTE | 2018-08-17 08:00 | MRI_ITS ---
STUDY: MRA NECK WITHOUT CONTRAST REASON FOR EXAM: Male, 83 years old. Seizure, syncope. TECHNIQUE: Source images were obtained, MIPs were performed. The study was performed unenhanced. COMPARISON: None. FINDINGS: RIGHT CAROTID ARTERIES: Normal right common carotid artery (CCA). Normal right common carotid bulb. Normal origin of the right internal carotid (ICA) artery without a hemodynamically significant stenosis. Normal visualized cervical portion of the right internal carotid artery. Normal origin of the right external carotid artery (ECA). LEFT CAROTID ARTERIES: Normal left common carotid artery (CCA). Normal left common carotid bulb. Normal origin of the left internal carotid (ICA) artery without a hemodynamically significant stenosis. Normal visualized cervical portion of the left internal carotid artery. Normal origin of the left external carotid artery (ECA). VERTEBRAL ARTERIES: Normal antegrade flow within the bilateral vertebral artery without a hemodynamically significant stenosis. MRI/MRA Neck without Contrast IMPRESSION: No evidence of significant steno-occlusive disease or aneurysm. Electronically Signed: Warren Shen DO at 10:54 EST , Service support ,
--- NOTE | 2018-08-17 08:00 | MRI_ITS ---
STUDY: MRA OF THE HEAD WITHOUT CONTRAST REASON FOR EXAM: Male, 83 years old. Seizure, syncope. TECHNIQUE: 3-D [id number] (TOF) imaging was performed with MIPs. The study was performed unenhanced. COMPARISON: None. FINDINGS: Normal bilateral petrous carotid arteries. Normal right cavernous carotid artery with a normal supraclinoid bifurcation. Normal left cavernous carotid artery with a normal supraclinoid bifurcation. Normal right A1 segments of the anterior cerebral artery. Normal left A1 segments of the anterior cerebral artery. Normal intact anterior communicating artery (ACOM). Normal bilateral A2 segments of the anterior cerebral arteries. Normal right M1 and M2 segments of the middle cerebral arteries, with a normal M1 bifurcation. Normal left M1 and M2 segments of the middle cerebral arteries, with a normal M1 bifurcation. There is non-visualization of the right posterior communicating artery (PCOM). There is non-visualization of the left posterior communicating artery (PCOM). Normal bilateral vertebral arteries. Within the proximal basilar artery is a septated appearance as seen on series 2 image 73 consistent with proximal septation with central dissection not completely excluded. The visualized bilateral superior cerebellar (SCA) arteries are normal. Normal bilateral P1, P2 and visualized P3 segments of the posterior cerebral arteries. There is no demonstrated aneurysm of the upper [place] of Bone. There is no major vessel occlusion or hemodynamically significant stenosis. There is no demonstrated abnormality of the visualized brain. MRI/MRA Head ONLY without Contrast IMPRESSION: 1. No evidence of significant steno-occlusive disease or aneurysm. 2. 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 Electronically Signed: Warren Shen DO at 10:45 EST , Service support ,
--- NOTE | 2018-08-17 08:00 | MRI_ITS ---
We are attempting to reach Michelle Nino MD to discuss findings. An addendum with communication details will be sent when the communication is complete. STUDY: MRI BRAIN WITHOUT CONTRAST REASON FOR EXAM: Male, 83 years old. Seizure/syncope. Pt had an episode yesterday of unresponsiveness and disorientation. TECHNIQUE: Standardized multiplanar fat and water weighted pulse sequences were obtained. COMPARISON: 08/16/2018 CT of the head FINDINGS: There is mild cerebral atrophy with widening of the extra-axial spaces and ventricular dilatation. There are a limited number of small white matter hyperintensities, distributed throughout the deep white matter tracts of the cerebral hemispheres, consistent with mild chronic white matter ischemic changes. Additionally there is chronic lacunar infarct of the barron. There is a 4 mm focus of increased diffusion signal at the left centrum semiovale (axial image #21 series 4) Normal bilateral basal ganglia. Normal thalami. There is no extra-axial fluid accumulation. Normal flow voids within the major intracranial circulation suggesting patency by spin echo criteria. Normal sella turcica, pituitary gland, infundibular stalk, optic chiasm and hypothalamus. Normal tectal plate and pineal gland. There are chronic white matter ischemic changes of the barron. The midbrain and medulla are otherwise normal. Normal cerebellum. Normal basal cisterns. MRI/Brain without Contrast IMPRESSION: Acute lacunar infarct of the left centrum semiovale. Moderate chronic microvascular ischemic changes and lacunar infarct. Electronically Signed: Zackary Marsh MD at 10:57 EST Tel , Service support ,
[2018-08-17 09:22] LABS: Thyroid Stim Hormone (TSH) 0.64 uIU/mL (0.358-3.74)
[2018-08-17] MEDS: Lisinopril 5 MG Tablet PO (11:30)
[2018-08-17] MEDS: Allopurinol 100 MG Tablet PO (11:31)
[2018-08-17] MEDS: Metoprolol(XL)Succ 50 MG Tablet PO (11:31)
[2018-08-17] MEDS: Aspirin 81 MG TAB.CHEW PO (11:31)
[2018-08-17] MEDS: Levothyroxine 112 MCG Tablet PO (11:31)
[2018-08-17] MEDS: Pantoprazole Sodium 20 MG Tablet PO (11:31)
[2018-08-17 12:25] LABS: Bedside Glucose 250 mg/dL (70-110)
--- NOTE | 2018-08-17 12:31 | CASEMGMT ---
SW met w/pt and in room to ask about home care. Pt and are not certain if they would want home health care or not, they are concerned about cost. SW explained is not able to tell them what the copay may be, but it would be covered by insurance. Pt also struggles w/vertigo and has been to [facility] in the past. SW explained if he needs therapy for this he may be better off going to [facility] as they can address the vertigo. SW explained if pt goes home tomorrow, and they decide they want home health, their PCP Dr. Salas could make a referral. If pt is still here Sunday, SW explained can have CM stop in to see if they would like the home health set up. Pt and are in agreement with this. ROSLYN Morris, INSIDE SALES CONSULTANT
--- NOTE | 2018-08-17 12:49 | PCM.PROGNOTE ---
<Philip Miller - Last Filed: 08/17/18 12:49> Patient Problems: Active and Suspected Problems (Last Reviewed 08/16/18 @ 15:45 by Panchito Callahan DO) Seizure (Acute) RUE weakness (Acute) Right arm numbness (Acute) Subjective: Pt feels improved today. He is somewhat lightheaded with standing, however BP did not significantly drop with orthos. He refused AM meds because he wants to take his own - is somewhat tachy especially with standing - STachy on monitor. He has no palp. He has no further numbness. He had no further syncope, gasping, and no seizure activity overnight. He is unsteady standing, however did ok walking with therapy. - Physical Exam General: Alert, Oriented x3, Cooperative HEENT: Atraumatic, PERRLA, EOMI, Normocephalic Neck: Supple, No JVD, Negative Carotid Bruits Lungs: Clear to auscultation, Normal air movement Cardiovascular: Regular rate, No murmurs Abdomen: Bowel Sounds Present, Soft, Non Tender Extremities: No edema, Capillary Refill Less than 3 Seconds Skin: No rashes, No breakdown Musculoskeletal: No Tenderness to Palpation of Joints or Extremities Neurological: Cranial nerves II-XII grossly intact Psych/Mental Status: Normal Affect, Appropriate Vital Signs Temp Pulse Resp BP Pulse Ox 97.8 F 122 H 19 H 118/89 H 99 08/17/18 07:57 08/17/18 11:31 08/17/18 07:57 08/17/18 11:05 08/17/18 07:57 Oxygen Delivery Method Room Air Weight: 165 lb 12.602 oz Body Mass Index (BMI) 25.2 Orthostatic Vital Signs Start: 08/17/18 11:05 Freq: q24h Status: Active Protocol: Activity Type Activity Date Activity User E-Sign Co-Sign Detail Recorded Client Recorded Date Recorded By Document 08/17/18 11:05 [facility] [id number] 08/17/18 11:07 [facility] 08/17/18 11:05 Orthostatic Vitals Standing -Blood Pressure (90/60-120/80) 125/66 H -Extremity Use Right Arm -Pulse Rate (60-100) 139 H Sitting -Blood Pressure (90/60-120/80) 144/85 H -Extremity Use Right Arm Lying -Blood Pressure (90/60-120/80) 118/89 H -Extremity Use Right Arm -Pulse Rate (60-100) 122 H Intake and Output for Last 24 Hours 08/15/18 08/16/18 08/17/18 23:59 23:59 23:59 Intake Total 240 / 240 Balance 240 / 240 Laboratory Tests Past 24 Hrs 08/16/18 08/16/18 08/16/18 12:40 12:40 12:40 WBC 7.3 RBC 4.25 L Hgb 12.6 L Hct 38.7 L MCV 91.1 MCH 29.6 MCHC 32.6 RDW 13.4 RDW Differential 44.0 H Plt Count 172 MPV 11.0 Immature Gran % (Auto) 0.400 Neut % (Auto) 76.6 H Lymph % (Auto) 8.7 L [place] % (Auto) 13.8 H Eos % (Auto) 0.4 Baso % (Auto) 0.1 Absolute Neuts (auto) 5.6 Absolute Lymphs (auto) 0.63 L Total Counted Not Reportable PT 15.1 H INR 1.2 APTT 31.3 Sodium 137 Potassium 3.9 Chloride 105 Carbon Dioxide 23.0 Anion Gap 9 BUN 23 H Creatinine 2.00 H Estim Creat Clear Calc 26.60 Est GFR (MDRD) Af Amer 41 L Est GFR (MDRD) Non-Af 34 L BUN/Creatinine Ratio 11.5 Glucose 224 H Calcium 8.6 Troponin I < 0.015 Triglycerides Cholesterol LDL Cholesterol VLDL Cholesterol HDL Cholesterol TSH 08/17/18 08/17/18 05:20 05:20 WBC RBC Hgb Hct MCV MCH MCHC RDW RDW Differential Plt Count MPV Immature Gran % (Auto) Neut % (Auto) Lymph % (Auto) [place] % (Auto) Eos % (Auto) Baso % (Auto) Absolute Neuts (auto) Absolute Lymphs (auto) Total Counted PT INR APTT Sodium 142 Potassium 4.1 Chloride 109 H Carbon Dioxide 23.0 Anion Gap 10 BUN 18 Creatinine 1.76 H Estim Creat Clear Calc 30.23 Est GFR (MDRD) Af Amer 48 L Est GFR (MDRD) Non-Af 39 L BUN/Creatinine Ratio 10.2 Glucose 202 H Calcium 8.4 L Troponin I Triglycerides 73 Cholesterol 112 LDL Cholesterol 55 VLDL Cholesterol 15 HDL Cholesterol 42 TSH 0.64 POC Glucose 08/17/18 11:14 POC Glucose 250 H Medical Necessity - Tobacco Use Smoking Status: Never smoker Tobacco Use: Non-smoker Assessment/Plan All Active Problems (Last Reviewed 08/16/18 @ 15:45 by Panchito Callahan DO) Seizure (Acute) RUE weakness (Acute) Right arm numbness (Acute) toenail removed (Resolved) History of back surgery (Resolved) Hx of cholecystectomy (Resolved) H/O percutaneous transluminal coronary angioplasty (Resolved) 1. Acute lacunar infarct left centrum semiovale - neuro on board CT brain negative MRI with above acute CVA MRA with possible small dissection Orthos negative. Provide IV fluids Continue asa/statin PT/OT/ST evals. lipid panel done 2. Partialy treated Acute diverticulitis - no further abdominal pain. Eating normal diet. DC abx - today is day 5. 3. CAD - prior stent - start statin, restart aspirin, continue geovanny, toprol 4. CKDIII - improved. 5. DMt2 - hold metformin, SSI 6. Hypothyroid - tsh normal. on synthroid 7. Hydrocele - urology follow up as outpatient DVT ppx: Heparin DC planning: continue PTOT, monitor. This patient was seen by Philip Miller PA-C under the supervision of Doctor Mica <Michelle Nino - Last Filed: 08/17/18 16:14> - Physical Exam Vital Signs Temp Pulse Resp BP Pulse Ox 97.2 F L 98 18 98/62 96 08/17/18 15:15 08/17/18 15:15 08/17/18 15:15 08/17/18 15:15 08/17/18 15:15 Oxygen Delivery Method Room Air Weight: 75.2 kg Body Mass Index (BMI) 25.2 Orthostatic Vital Signs Start: 08/17/18 11:05 Freq: q24h Status: Active Protocol: Activity Type Activity Date Activity User E-Sign Co-Sign Detail Recorded Client Recorded Date Recorded By Document 08/17/18 11:05 [facility] [id number] 08/17/18 11:07 [facility] 08/17/18 11:05 Orthostatic Vitals Standing -Blood Pressure (90/60-120/80) 125/66 H -Extremity Use Right Arm -Pulse Rate (60-100) 139 H Sitting -Blood Pressure (90/60-120/80) 144/85 H -Extremity Use Right Arm Lying -Blood Pressure (90/60-120/80) 118/89 H -Extremity Use Right Arm -Pulse Rate (60-100) 122 H Intake and Output for Last 24 Hours 08/15/18 08/16/18 08/17/18 23:59 23:59 23:59 Intake Total 890 / 890 Balance 890 / 890 Laboratory Tests Past 24 Hrs 08/17/18 08/17/18 05:20 05:20 Sodium 142 Potassium 4.1 Chloride 109 H Carbon Dioxide 23.0 Anion Gap 10 BUN 18 Creatinine 1.76 H Estim Creat Clear Calc 30.23 Est GFR (MDRD) Af Amer 48 L Est GFR (MDRD) Non-Af 39 L BUN/Creatinine Ratio 10.2 Glucose 202 H Calcium 8.4 L Triglycerides 73 Cholesterol 112 LDL Cholesterol 55 VLDL Cholesterol 15 HDL Cholesterol 42 TSH 0.64 POC Glucose 08/17/18 11:14 POC Glucose 250 H Assessment/Plan This patient was seen in conjunction with JIMMY Gao. I have independently interviewed and examined the patient and reviewed pertinent historical, laboratory, and other data. Please refer to JIMMY Gao note for his patient's presentation, findings, and recommendations. I have reviewed and his note and concur with his documentation 3-year-old male with past medical history of chronic vertigo, orthostatic hypotension, CKD stage III, CAD status post stent, hypertension who comes in with an episode of syncope. He was told to be having seizures and brought to the emergency department. Patient's MRI today showed acute lacunar infarct. Neurology has been consulted Patient was seen and examined the presence of the . Denied any new complaints. Denied any numbness or tingling's or dizziness or chest pain. He admits that he had numbness of his right extremity on admission which has resolved. Vitals reviewed, patient remains orthostatic by heart rate. Physical Exam: Gen: Alert, oriented x3, not pale, not jaundiced CVS:HS I +II, regular, no murmurs RESP:Clinically clear to auscultation GI: Full, soft nontender, no ballotable organs EXT:No edema HUNTER GUIDE: Nerves II through XII intact, power is 5/5 in all extremities, normal tone, sensation is intact ASSESSMENT: 1. Acute left lacunar infarct 2. Orthostatic hypotension due to dehydration 3. Recent partially treated acute diverticulitis 4. CAD status post stent 5. AK I on CKD stage III dehydration, improved with hydration 6. Hypothyroidism Plan: Gentle IV fluids, repeat labs in the morning, Continue with aspirin, lisinopril Possible DC in a.m. with home health Plan: Code Visit Inpatient E&M: 70123 Subs Hosp L3
[2018-08-17] MEDS: Insulin Lispro 100 UNIT/ML INSULN.PEN SC ×3 (12:50→21:57)
[2018-08-17] MEDS: 0.9% Normal Saline 1,000 ML 75 ML IV (13:00)
[2018-08-17 16:16] LABS: Bedside Glucose 217 mg/dL (70-110)
[2018-08-17] MEDS: Glucerna Shake 120 ML LIQUID PO (21:53)
[2018-08-17 23:26] LABS: Bedside Glucose 199 mg/dL (70-110)
[2018-08-18] VITALS (7 sets, daily range): BP systolic 134–151; BP diastolic 85–97; PULSE 94–119; RESP 18; TEMP 36.7–37.1; O2SAT 95–98; BMI 25.2
[2018-08-18] MEDS: 0.9% Normal Saline 1,000 ML 75 ML IV (03:48)
[2018-08-18] MEDS: Levothyroxine 112 MCG Tablet PO (05:30)
[2018-08-18 06:44] LABS: Anion Gap 10 (5-15); BUN 19 mg/dL (7-18); BUN/Creat Ratio 10.9 RATIO (10-20); Calcium,Total 8.5 mg/dL (8.5-10.1); Chloride 114 mmol/L (98-107); Creatinine, Serum 1.75 mg/dL (0.70-1.30); EST Glomerular Filtration Rate 40 mL/min (>60); Est Glom Filt Rate - Afr Amer 48 mL/min (>60); Glucose 208 mg/dL (74-106); Sodium Level 145 mmol/L (136-145)
[2018-08-18 07:01] LABS: Bedside Glucose 189 mg/dL (70-110)
[2018-08-18] MEDS: Aspirin 81 MG TAB.CHEW PO (08:38)
[2018-08-18] MEDS: Pantoprazole Sodium 20 MG Tablet PO (08:38)
[2018-08-18] MEDS: Lisinopril 5 MG Tablet PO (08:39)
[2018-08-18] MEDS: Metoprolol(XL)Succ 50 MG Tablet PO (08:39)
[2018-08-18] MEDS: Insulin Lispro 100 UNIT/ML INSULN.PEN SC ×2 (08:39→10:56)
[2018-08-18] MEDS: Glucerna Shake 120 ML LIQUID PO (08:47)
[2018-08-18] MEDS: Allopurinol 100 MG Tablet PO (09:37)
--- NOTE | 2018-08-18 10:39 | DCINST_ITS ---
- Discharge Diagnoses Current Active Problems: Current Active and Chronic Problems (Last Reviewed 08/16/18 @ 15:45 by Panchito Callahan DO) Seizure (Acute) RUE weakness (Acute) Right arm numbness (Acute) You will use the following diet at home:: Calorie/Carbohydrate Controlled (specify 1200, 1400, etc) - 1800 calories / day, Cardiac - <2 grams daily Your food should be the consistency of: Regular Your liquids should be the consistency of: Regular/Thin Discharge Activity: Return to Normal Activity, - - Outpatient PT, OT, Vestibular therapy at [facility]. Allergies/Adverse Reactions: Allergies clopidogrel bisulfate [From Plavix] Allergy (Verified 08/16/18 11:32) Rash cyclobenzaprine [Cyclobenzaprine] Allergy (Verified 08/16/18 11:32) Rash fluoxetine HCl [From Prozac] Allergy (Verified 08/16/18 11:32) Rash Medications to take at Discharge Aspirin [Aspirin, Baby] 81 mg PO DAILY@0800 08/15/13 Levothyroxine [Synthroid] 112 mcg PO DAILY 08/15/13 Omeprazole [Prilosec] 20 mg PO DAILY 06/26/16 lisinopril 5 mg tablet 5 mg PO DAILY #30 tab 10/24/17 nitroglycerin 0.4 mg sublingual tablet 0.4 mg SUBLINGUAL Q5M PRN #25 tab 10/24/17 Allopurinol [Zyloprim] 100 mg PO DAILY 08/16/18 Metformin HCl 500 mg PO DAILY 08/16/18 Metoprolol Succinate [Toprol Xl] 50 mg PO DAILY 08/16/18 Atorvastatin Calcium [Lipitor] 40 mg PO QHS #30 tablet 08/18/18 The following prescriptions were given: Atorvastatin Calcium [Lipitor] 40 mg PO QHS #30 tablet Primary Care Physician: Mike Salas MD [Primary Care Provider] - Please follow up with your Primary Care Physician in: 1-2 weeks Test Results: Test results from this visit will be discussed in further detail at your follow- up appointment, if applicable. Please Follow Up With: Kelly Castillo MD When: 3-4 weeks Proposed Discharge Date: 08/18/18
[2018-08-18 12:05] LABS: Bedside Glucose 254 mg/dL (70-110)
--- NOTE | 2018-08-18 14:49 | PCM.DC.SUM ---
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 coronary artery (Chronic) [facility] with stent to ramus 10/31/10 Chronic kidney disease (Chronic) Hypertensive chronic kidney disease (Chronic) Atherosclerosis of aorta (Chronic) Hospital Course and Treatment Imaging Results: CT/Brain/Head without Contrast IMPRESSION: Normal unenhanced CT scan of the brain. RAD/Chest 1 View IMPRESSION: Hyperinflation. The lungs are clear. MRI/Brain without Contrast IMPRESSION: Acute lacunar infarct of the left centrum semiovale. Moderate chronic microvascular ischemic changes and lacunar infarct. MRI/MRA Head ONLY without Contrast IMPRESSION: 1. No evidence of significant steno-occlusive disease or aneurysm. 2. 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 MRI/MRA Neck without Contrast IMPRESSION: No evidence of significant steno-occlusive disease or aneurysm. Echo: Interpretation Summary Normal LV size. Moderate concentric left ventricular hypertrophy. Left ventricular systolic function is normal. The estimated ejection fraction is 65 %. Mild (1+) tricuspid valve insufficiency. Pulmonary artery systolic pressure is 35 mmHg. Stage 1 diastolic dysfunction. Contrast injection was performed. Consults: Anna - neuro Operations: None Procedures: 2-D Echocardiogram Summary of Care Provided: Hospital course: The patient is a 83 year old M with past medical history of chronic vertigo, orthostatic syncope, hydrocele, CKD stage III, type 2 diabetes, hypothyroidism, who had been treated for 4 days prior with antibiotics for acute diverticulitis by his PCP, who presented to the emergency room with complaints of possible seizure, syncope, right arm numbness. CT of the brain was negative in the ER. Further history revealed no seizure-like activity including no shaking, no postictal phase, no tongue biting, no loss of continence. With the right arm numbness there is concern for possible stroke. He was admitted to the PCU on telemetry and neurology was consulted. Neurology did not feel that seizure was likely. However as he had been on ciprofloxacin which can lower the seizure threshold an EEG was performed-results are pending. An MRI of the brain was obtained and did reveal an acute lacunar infarct of the left centrum semi-ovale. He is placed on aspirin and Lipitor. MRA of the head revealed proximal basal artery likely septation with small area of dissection not completely excluded-this was discussed with neurology who felt that treatment with aspirin and statin was warranted with no further intervention for now - the area was small and questionable and he will have outpatient follow up for it. His right arm numbness resolved prior to admission and did not reoccur. He was evaluated by PT and OT and did well. He does have chronic vertigo and outpatient therapy was recommended for PT, OT, with vestibular therapy. Home health care was offered however the the patient and his are unsure if they wanted this so we advised him to discuss it with her PCP if they change their mind. He had [facility] and planned to pursue this again. Also of note we attempted to switch him to Augmentin to complete his antibiotic therapy for acute diverticulitis, however he refused to take it. He had no abdominal pain, nausea, vomiting, or diarrhea during his stay so clinically his diverticulitis had resolved and we recommended no further antibiotics at discharge. He was discharged home in stable condition. Please follow up with PCP in 1-2 weeks, and follow up with Neurology in 3-4 weeks. Lastly, of note, there is concern for possible underlying dementia, and he was very forgetful while here not remembering conversations had within minutes, not remembering conversations the day prior, and fluctuant confusion during his stay. This should be addressed at his follow up care. This patient was seen by Philip Miller PA-C under the supervision of Doctor Nino. [] - Physical Exam General: Alert, Oriented x3, Cooperative HEENT: Atraumatic, PERRLA, EOMI, Normocephalic Neck: Supple, No JVD, Negative Carotid Bruits Lungs: Clear to auscultation, Normal air movement Cardiovascular: Regular rate, No murmurs Abdomen: Bowel Sounds Present, Soft, Non Tender Extremities: No edema, Capillary Refill Less than 3 Seconds Skin: No rashes, No breakdown Musculoskeletal: No Tenderness to Palpation of Joints or Extremities Neurological: Cranial nerves II-XII grossly intact Psych/Mental Status: Normal Affect, Appropriate Vital Signs Temp Pulse Resp BP Pulse Ox 98.6 F 106 H 18 134/89 H 98 08/18/18 10:55 08/18/18 10:55 08/18/18 10:55 08/18/18 10:55 08/18/18 10:55 Oxygen Delivery Method Room Air Weight: 165 lb 12.602 oz Body Mass Index (BMI) 25.2 Intake and Output for Last 24 Hours 08/16/18 08/17/18 08/19/18 23:59 23:59 00:59 Intake Total 1966 860 / 860 Balance 1966 860 / 860 Laboratory Tests Past 24 Hrs 08/18/18 05:20 Sodium 145 Potassium 4.0 Chloride 114 H Carbon Dioxide 21.0 Anion Gap 10 BUN 19 H Creatinine 1.75 H Estim Creat Clear Calc 30.40 Est GFR (MDRD) Af Amer 48 L Est GFR (MDRD) Non-Af 40 L BUN/Creatinine Ratio 10.9 Glucose 208 H Calcium 8.5 POC Glucose 08/18/18 08/18/18 08/17/18 10:52 06:57 21:51 POC Glucose 254 H 189 H 199 H 08/17/18 16:08 POC Glucose 217 H Discharge Diet: Low fat/ Low Cholesterol, 1800 Calorie Control Diet, 2000 mg Sodium Diet Discharge Activity: Return to Normal Activity, - - Outpatient PT, OT, Vestibular therapy at [facility]. Home Medications: Medications to take at Discharge Aspirin [Aspirin, Baby] 81 mg PO DAILY@0800 08/15/13 Levothyroxine [Synthroid] 112 mcg PO DAILY 08/15/13 Omeprazole [Prilosec] 20 mg PO DAILY 06/26/16 lisinopril 5 mg tablet 5 mg PO DAILY #30 tab 10/24/17 nitroglycerin 0.4 mg sublingual tablet 0.4 mg SUBLINGUAL Q5M PRN #25 tab 10/24/17 Allopurinol [Zyloprim] 100 mg PO DAILY 08/16/18 Metformin HCl 500 mg PO DAILY 08/16/18 Metoprolol Succinate [Toprol Xl] 50 mg PO DAILY 08/16/18 Atorvastatin Calcium [Lipitor] 40 mg PO QHS #30 tablet 08/18/18 Following Prescrptions Were Given to Patient: Atorvastatin Calcium [Lipitor] 40 mg PO QHS #30 tablet Primary Care Physician: Mike Salas MD [Primary Care Provider] - Please follow up with your Primary Care Physician in: 1-2 weeks Please Follow Up With: Kelly Castillo MD When: 3-4 weeks Disposition: Home Minutes spent on discharge:: 35 Patient Condition:: Stable Medical Necessity - Tobacco Use Smoking Status: Never smoker Tobacco Use: Non-smoker Meaningful Use Info Meaningful Use Diagnoses (Choose all that apply): Ischemic CVA - CVA Therapy Assessed for PT,OT and/or ST?: Yes - Ischemic Stroke Antithrombotic order at d/c?: Yes Dx of Atrial fib/flutter?: No Statins at discharge?: Yes Primary Dx Acute Ischemic CVA?: Yes IV tPA ordered during stay?: No Reason IV t-PA not ordered: Procedure not Indicated <MicaYorkshire - Last Filed: 08/18/18 16:04> Discharge Date and Diagnosis - Secondary Discharge Diagnosis Chronic Problems (Last Reviewed 08/16/18 @ 15:45 by Panchito Callahan DO) Angina pectoris (Chronic) Encounter for long-term current use of high risk medication (Chronic) Hypothyroidism (Chronic) Essential hypertension (Chronic) Hyperlipidemia (Chronic) Esophageal reflux (Chronic) Diverticulosis of colon (Chronic) Type II diabetes mellitus (Chronic) Coronary atherosclerosis of [place] coronary artery (Chronic) [facility] with stent to ramus 10/31/10 Chronic kidney disease (Chronic) Hypertensive chronic kidney disease (Chronic) Atherosclerosis of aorta (Chronic) Hospital Course and Treatment Summary of Care Provided: This patient was seen in conjunction with JIMMY Gao. I have independently interviewed and examined the patient and reviewed pertinent historical, laboratory, and other data. Please refer to JIMMY Gao note for his patient's presentation, findings, and recommendations. I have reviewed and his note and concur with his documentation 83-year-old male with past medical history of chronic vertigo, orthostatic hypotension, CKD stage III, CAD status post stent, hypertension who comes in with an episode of syncope. He was thought to be having seizures and brought to the emergency department. Neurology was consulted and did not feel the seizure was likely. MRI on admission showed acute lacunar infarct. He was managed on aspirin and Lipitor. 2D echo was unremarkable. Patient improved and was slightly orthostatic the next day. He received IV fluids with improvement in his orthostatic vitals. During the hospital stay, he was continued on his antibiotics, completed treatment for his diverticulitis. On the day of discharge, no acute complains were seen. Physical exam: Gen: Alert, oriented x3, not pale, not jaundiced CVS:HS I +II, regular, no murmurs RESP:Clinically clear to auscultation GI: Full, soft nontender, no ballotable organs EXT:No edema HARD CANDY SPINNER: Nerves II through XII intact, power is 5/5 in all extremities, normal tone, sensation is intact - Physical Exam Vital Signs Temp Pulse Resp BP Pulse Ox 98.6 F 106 H 18 134/89 H 98 08/18/18 10:55 08/18/18 10:55 08/18/18 10:55 08/18/18 10:55 08/18/18 10:55 Oxygen Delivery Method Room Air Weight: 75.2 kg Body Mass Index (BMI) 25.2 Intake and Output for Last 24 Hours 08/16/18 08/17/18 08/19/18 23:59 23:59 00:59 Intake Total 1966 860 / 860 Balance 1966 860 / 860 Laboratory Tests Past 24 Hrs 08/18/18 05:20 Sodium 145 Potassium 4.0 Chloride 114 H Carbon Dioxide 21.0 Anion Gap 10 BUN 19 H Creatinine 1.75 H Estim Creat Clear Calc 30.40 Est GFR (MDRD) Af Amer 48 L Est GFR (MDRD) Non-Af 40 L BUN/Creatinine Ratio 10.9 Glucose 208 H Calcium 8.5 POC Glucose 08/18/18 08/18/18 08/17/18 10:52 06:57 21:51 POC Glucose 254 H 189 H 199 H 08/17/18 16:08 POC Glucose 217 H Code Visit Inpatient E&M: 43174 Disch Hosp
--- NOTE | 2018-08-18 14:59 | DS.PCM_ITS ---
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 Syncope Recent acute diverticulitis Chronic vertigo CAD with prior stent CKD stage III Type 2 diabetes Hypothyroidism Hydrocele - Secondary Discharge Diagnosis Chronic Problems (Last Reviewed 08/16/18 @ 15:45 by Panchito Callahan DO) Angina pectoris (Chronic) Encounter for long-term current use of high risk medication (Chronic) Hypothyroidism (Chronic) Essential hypertension (Chronic) Hyperlipidemia (Chronic) Esophageal reflux (Chronic) Diverticulosis of colon (Chronic) Type II diabetes mellitus (Chronic) Coronary atherosclerosis of [place] coronary artery (Chronic) [facility] with stent to ramus 10/31/10 Chronic kidney disease (Chronic) Hypertensive chronic kidney disease (Chronic) Atherosclerosis of aorta (Chronic) Hospital Course and Treatment Imaging Results: CT/Brain/Head without Contrast IMPRESSION: Normal unenhanced CT scan of the brain. RAD/Chest 1 View IMPRESSION: Hyperinflation. The lungs are clear. MRI/Brain without Contrast IMPRESSION: Acute lacunar infarct of the left centrum semiovale. Moderate chronic microvascular ischemic changes and lacunar infarct. MRI/MRA Head ONLY without Contrast IMPRESSION: 1. No evidence of significant steno-occlusive disease or aneurysm. 2. 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 MRI/MRA Neck without Contrast IMPRESSION: No evidence of significant steno-occlusive disease or aneurysm. Echo: Interpretation Summary Normal LV size. Moderate concentric left ventricular hypertrophy. Left ventricular systolic function is normal. The estimated ejection fraction is 65 %. Mild (1+) tricuspid valve insufficiency. Pulmonary artery systolic pressure is 35 mmHg. Stage 1 diastolic dysfunction. Contrast injection was performed. Consults: Anna - neuro Operations: None Procedures: 2-D Echocardiogram Summary of Care Provided: Hospital course: The patient is a 83 year old M with past medical history of chronic vertigo, orthostatic syncope, hydrocele, CKD stage III, type 2 diabetes, hypothyroidism, who had been treated for 4 days prior with antibiotics for acute diverticulitis by his PCP, who presented to the emergency room with complaints of possible seizure, syncope, right arm numbness. CT of the brain was negative in the ER. Further history revealed no seizure-like activity including no shaking, no postictal phase, no tongue biting, no loss of continence. With the right arm numbness there is concern for possible stroke. He was admitted to the PCU on telemetry and neurology was consulted. Neurology did not feel that seizure was likely. However as he had been on ciprofloxacin which can lower the seizure threshold an EEG was performed-results are pending. An MRI of the brain was obtained and did reveal an acute lacunar infarct of the left centrum semi-ovale. He is placed on aspirin and Lipitor. MRA of the head revealed proximal basal artery likely septation with small area of dissection not completely excluded- this was discussed with neurology who felt that treatment with aspirin and statin was warranted with no further intervention for now - the area was small and questionable and he will have outpatient follow up for it. His right arm numbness resolved prior to admission and did not reoccur. He was evaluated by PT and OT and did well. He does have chronic vertigo and outpatient therapy was recommended for PT, OT, with vestibular therapy. Home health care was offered however the the patient and his are unsure if they wanted this so we advised him to discuss it with her PCP if they change their mind. He had done therapy at [facility] prior and planned to pursue this again. Also of note we attempted to switch him to Augmentin to complete his antibiotic therapy for acute diverticulitis, however he refused to take it. He had no abdominal pain, nausea, vomiting, or diarrhea during his stay so clinically his diverticulitis h ad resolved and we recommended no further antibiotics at discharge. He was discharged home in stable condition. Please follow up with PCP in 1-2 weeks, and follow up with Neurology in 3-4 weeks. Lastly, of note, there is concern for possible underlying dementia, and he was very forgetful while here not remembering conversations had within minutes, not remembering conversations the day prior, and fluctuant confusion during his stay. This should be addressed at his follow up care. This patient was seen by Philip Miller PA-C under the supervision of Doctor Nino. [] - Physical Exam General: Alert, Oriented x3, Cooperative HEENT: Atraumatic, PERRLA, EOMI, Normocephalic Neck: Supple, No JVD, Negative Carotid Bruits Lungs: Clear to auscultation, Normal air movement Cardiovascular: Regular rate, No murmurs Abdomen: Bowel Sounds Present, Soft, Non Tender Extremities: No edema, Capillary Refill Less than 3 Seconds Skin: No rashes, No breakdown Musculoskeletal: No Tenderness to Palpation of Joints or Extremities Neurological: Cranial nerves II-XII grossly intact Psych/Mental Status: Normal Affect, Appropriate Vital Signs Temp Pulse Resp BP Pulse Ox 98.6 F 106 H 18 134/89 H 98 08/18/18 10:55 08/18/18 10:55 08/18/18 10:55 08/18/18 10:55 08/18/18 10:55 Oxygen Delivery Method Room Air Weight: 165 lb 12.602 oz Body Mass Index (BMI) 25.2 Intake and Output for Last 24 Hours 08/16/18 08/17/18 08/19/18 23:59 23:59 00:59 Intake Total 1966 860 / 860 Balance 1966 860 / 860 Laboratory Tests Past 24 Hrs 08/18/18 05:20 Sodium 145 Potassium 4.0 Chloride 114 H Carbon Dioxide 21.0 Anion Gap 10 BUN 19 H Creatinine 1.75 H Estim Creat Clear Calc 30.40 Est GFR (MDRD) Af Amer 48 L Est GFR (MDRD) Non-Af 40 L BUN/Creatinine Ratio 10.9 Glucose 208 H Calcium 8.5 POC Glucose 08/18/18 08/18/18 08/17/18 10:52 06:57 21:51 POC Glucose 254 H 189 H 199 H 08/17/18 16:08 POC Glucose 217 H Discharge Diet: Low fat/ Low Cholesterol, 1800 Calorie Control Diet, 2000 mg Sodium Diet Discharge Activity: Return to Normal Activity, - - Outpatient PT, OT, Vestibular therapy at [facility]. Home Medications: Medications to take at Discharge Aspirin [Aspirin, Baby] 81 mg PO DAILY@0800 08/15/13 Levothyroxine [Synthroid] 112 mcg PO DAILY 08/15/13 Omeprazole [Prilosec] 20 mg PO DAILY 06/26/16 lisinopril 5 mg tablet 5 mg PO DAILY #30 tab 10/24/17 nitroglycerin 0.4 mg sublingual tablet 0.4 mg SUBLINGUAL Q5M PRN #25 tab 10/24/17 Allopurinol [Zyloprim] 100 mg PO DAILY 08/16/18 Metformin HCl 500 mg PO DAILY 08/16/18 Metoprolol Succinate [Toprol Xl] 50 mg PO DAILY 08/16/18 Atorvastatin Calcium [Lipitor] 40 mg PO QHS #30 tablet 08/18/18 Following Prescrptions Were Given to Patient: Atorvastatin Calcium [Lipitor] 40 mg PO QHS #30 tablet Primary Care Physician: Mike Salas MD [Primary Care Provider] - Please follow up with your Primary Care Physician in: 1-2 weeks Please Follow Up With: Kelly Castillo MD When: 3-4 weeks Disposition: Home Minutes spent on discharge:: 35 Patient Condition:: Stable Medical Necessity - Tobacco Use Smoking Status: Never smoker Tobacco Use: Non-smoker Meaningful Use Info Meaningful Use Diagnoses (Choose all that apply): Ischemic CVA - CVA Therapy Assessed for PT,OT and/or ST?: Yes - Ischemic Stroke Antithrombotic order at d/c?: Yes Dx of Atrial fib/flutter?: No Statins at discharge?: Yes Primary Dx Acute Ischemic CVA?: Yes IV tPA ordered during stay?: No Reason IV t-PA not ordered: Procedure not Indicated <Mica,[place] - Last Filed: 08/18/18 16:04> Discharge Date and Diagnosis - Secondary Discharge Diagnosis Chronic Problems (Last Reviewed 08/16/18 @ 15:45 by Panchito Callahan DO) Angina pectoris (Chronic) Encounter for long-term current use of high risk medication (Chronic) Hypothyroidism (Chronic) Essential hypertension (Chronic) Hyperlipidemia (Chronic) Esophageal reflux (Chronic) Diverticulosis of colon (Chronic) Type II diabetes mellitus (Chronic) Coronary atherosclerosis of [place] coronary artery (Chronic) [facility] with stent to ramus 10/31/10 Chronic kidney disease (Chronic) Hypertensive chronic kidney disease (Chronic) Atherosclerosis of aorta (Chronic) Hospital Course and Treatment Summary of Care Provided: This patient was seen in conjunction with JIMMY Gao. I have independently interviewed and examined the patient and reviewed pertinent historical, laboratory, and other data. Please refer to JIMMY Gao note for his patient's presentation, findings, and recommendations. I have reviewed and his note and concur with his documentation 83-year-old male with past medical history of chronic vertigo, orthostatic hypotension, CKD stage III, CAD status post stent, hypertension who comes in with an episode of syncope. He was thought to be having seizures and brought to the emergency department. Neurology was consulted and did not feel the seizure was likely. MRI on admission showed acute lacunar infarct. He was managed on aspirin and Lipitor. 2D echo was unremarkable. Patient improved and was slightly orthostatic the next day. He received IV fluids with improvement in his orthostatic vitals. During the hospital stay, he was continued on his antibiotics, completed treatment for his diverticulitis. On the day of discharge, no acute complains were seen. Physical exam: Gen: Alert, oriented x3, not pale, not jaundiced CVS:HS I +II, regular, no murmurs RESP:Clinically clear to auscultation GI: Full, soft nontender, no ballotable organs EXT:No edema MOLDER WAX BALL: Nerves II through XII intact, power is 5/5 in all extremities, normal tone, sensation is intact - Physical Exam Vital Signs Temp Pulse Resp BP Pulse Ox 98.6 F 106 H 18 134/89 H 98 08/18/18 10:55 08/18/18 10:55 08/18/18 10:55 08/18/18 10:55 08/18/18 10:55 Oxygen Delivery Method Room Air Weight: 75.2 kg Body Mass Index (BMI) 25.2 Intake and Output for Last 24 Hours 08/16/18 08/17/18 08/19/18 23:59 23:59 00:59 Intake Total 1966 860 / 860 Balance 1966 860 / 860 Laboratory Tests Past 24 Hrs 08/18/18 05:20 Sodium 145 Potassium 4.0 Chloride 114 H Carbon Dioxide 21.0 Anion Gap 10 BUN 19 H Creatinine 1.75 H Estim Creat Clear Calc 30.40 Est GFR (MDRD) Af Amer 48 L Est GFR (MDRD) Non-Af 40 L BUN/Creatinine Ratio 10.9 Glucose 208 H Calcium 8.5 POC Glucose 08/18/18 08/18/18 08/17/18 10:52 06:57 21:51 POC Glucose 254 H 189 H 199 H 08/17/18 16:08 POC Glucose 217 H Code Visit Inpatient E&M: [id number] Disch Hosp
--- NOTE | 2018-08-19 11:42 | EEG_ITS ---
- Electroencephalogram Date of service 08/17/2018 History EEG is being done in this 83 yr M to rule out seizures EEG Description: This is an 18 channel EEG with 10-20 lead placement system. Bipolar montages, Referential and Circumferential montages were reviewed. Photic stimulation and Hyperventilation were performed. The posterior dominant rhythm is 10-11 HZ synchronous, symmetric, reacting to eye opening and closing. Photo stimulation elicited normal driving response but no abnormal photoparoxysmal response, Hyperventilation did not elicit any abnormal photoparoxysmal response. Sleep was not identified. There is no abnormal background slowing noted. Patient was blinking the eye through most of the record and muscle artefact was seen throughout the entire record. There was no epileptiform discharges or electrographic seizures noted during this recording. EEG Interpretation This is a normal awake EEG. There is no epileptiform discharges or skylar ctrographic seizures noted during the record.
--- NOTE | 2018-08-19 13:54 | CASEMGMT ---
JERRY WILSON DC PHONE CALL DC DATE: 08/18/18 DC Disposition: Home LACE/STRATA: 04/13 Intro role of CM to patient and his via phone. Pt states he is feeling well, then handed phone to stating my handles all this, so please talk to her. Per they filled all prescriptions except lipitor. is concerned of cost. JERRY WILSON let her know if cost is prohibitive, she should contact PCP and let him know so they can consider alternatives. also will be calling [facility] to set up first appointment for therapy. No other concerns or questions. No care improvement suggestions given, stated his care was wonderful and all staff was very nice. Casimiro PHILLIPS RN ACM
== END 2018-08-18 12:40 | disposition home or self-care (01) | DRG 65 ==
LOC: ED 14:14 → PCU 15:30
PROVIDERS: Physician Assistant; Emergency Provider Emergency Medicine; Family Provider Family Medicine; PCP Family Medicine; Visit Provider Internal Medicine
DX: I63.81 Other cerebral infarction due to occlusion or stenosis of small artery (principal); K57.92 Diverticulitis of intestine, part unspecified, without perforation or abscess without bleeding; Q28.1 Other malformations of precerebral vessels; G83.21 Monoplegia of upper limb affecting right dominant side; R29.702 NIHSS score 2; R42 Dizziness and giddiness; I25.10 Atherosclerotic heart disease of native coronary artery without angina pectoris; E03.9 Hypothyroidism, unspecified; N43.3 Hydrocele, unspecified; I12.9 Hypertensive chronic kidney disease with stage 1 through stage 4 chronic kidney disease, or unspecified chronic kidney disease; E11.22 Type 2 diabetes mellitus with diabetic chronic kidney disease; N18.3 Chronic kidney disease, stage 3 (moderate); E78.5 Hyperlipidemia, unspecified; R55 Syncope and collapse; K21.9 Gastro-esophageal reflux disease without esophagitis; M10.9 Gout, unspecified; Z95.5 Presence of coronary angioplasty implant and graft; I70.0 Atherosclerosis of aorta; Z79.84 Long term (current) use of oral hypoglycemic drugs
CPT/HCPCS: 36415; 70450; 70544; 70547; 70551; 71045; 80048; 80061; 82962; 84443; 84484; 85025; 85610; 85730; 92610; 93005; 93306; 95819; 97110; 97162; 97166; 97535; 99285; J7030; J7040; Q9957; A4216; C8929; J2405

== ENCOUNTER 2018-09-11 11:30 | Outpatient (RCR) | payer MEDICARE, SELFPAY ==
[2018-08-18 08:29] VITALS: BMI 25.2
--- NOTE | 2018-08-29 11:42 | HP.PTEVAL_ITS ---
Patient's Visit Information ROSHNI GARCIA is a 83 year old M referred to Physical Therapy by Mike Salas MD with a diagnosis of vertigo and imbalance. Date of Evaluation: 08/29/18 Physical Therapist: Panchito Garg, DPT, OCS, CSCS - Visit Plan Frequency: 1-2x /Week Duration: 4-6 Weeks Plan: 1-2x/week for 4 weeks for. 1. Positional treatments adn monitoring as needed. 2. Balance interventions and possibly neurocom testing if balance not better with abolishment of vertigo. - Subjective Findings: Starts to get dizzy if rolls on sides and has been happening for months. The feeling lasts only a few seconds. Doesn't bother him moving around. Balance is not great and seems to coincide with vertigo. No falls. No AD needed but has cane and does not use it regularly. Had stroke 2 weeks ago and was in hospital after having memory problems, no increase problems with balance or UE/LE due to stroke. Numbness if eet with neuropathy from diabetes. Can't say that he spins. Sleeps not great but not sure why, hard to relax that is normal for him. 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 Is careful with interactions. Life is normal but worrisome with dizzyness and imbalance. Basic aDLs , coioking, bathroom, dressing all I. Has cane and walker at home. - Pain B feet all the tiem Pain Intensity (Out of 10): 8 Pain Intensity Range: 0, 9 - Objective 18 sec TUG test, Walking slow and careful and hunched over entering PT, two ra ils and prefers R on steps up and down. Trasnfers with UE carefully. Walks out faster and up slightly taller, feeling better. LE strength 4/5, sensation at deficit to gross light touch in feet. Able to heel raise and toe raise with balance aid. - L hallpike. + R hallpike, quick upward torsional nystagmus 4 seconds. Treated with R Jimmie then - hallpike R. - Balance Scores Functional Gait Assessment Score: 15 % Disability: 50.0000 CATSIB Score (Max score 120 seconds): 55 - Goals Goal 1:: Abolish dizzyness rolling adn feel back to normal in head at rest. Goal Time Frame: 2-4 Weeks Goal 2:: Balance / to minimize fall risk. Goal Time Frame: 2-4 Weeks Goal 3:: TUG in less than 12 seconds to show improved mobility. Goal Time Frame: 2-4 Weeks Goal 4:: Pt feel 99% back to normal Goal Time Frame: 2-4 Weeks - Rehabilitation Potential Physical Therapy Diagnosis: BPPV and imbalance Rehabilitation Potential: Fair - Anticipated Interventions Patient/Client Instruction: Educate patient on: Condition, Plan of Care For the Purpose of:: To improve gait and locomotor functions, To improve safety with gait Therapeutic Exercise to Include: Balance training Comment: psotiional interventions For the Purpose of:: To increase tolerance to activity/condition/position, To improve ability of physical actions for home/community/work/leisure, To improve balance, To improve safety with gait Thank you for the opportunity to evaluate your patient. For Medicare and Medicare HMO plans, please review the plan of care and approve it. It will need to be FAXED BACK to us at [phone] for Medicare purposes. For Medicare only, by signing this I certify the plan of care. Please let me know if there are questions or concerns regarding this plan of care. Physician Signature: Date:
--- NOTE | 2018-09-11 11:44 | HP.PTDCSUM ---
HP - PT D/C Summary It has been my pleasure to treat ROSHNI GARCIA under orders from Mike Salas MD, for the diagnosis of vertigo and imbalance for a total of 3 visit(s). Discharge Date: Please see the following information for a summary of their discharge status. - Subjective Subjective: `No dizzyness. No more funny feeling on side. Balance is good, been getting paper and picking up sticks. - Pain B feet all the tiem Pain Intensity (Out of 10): 8 - Overall Improvement % Improvement: 100 - Objective Objective/Function: slight dizzyness adn nystagmus with R HD adn treated with Epleya gain. - L hallpike. Balance much improved and pt feeling very good. 11 second TUG today, improved. - Goals Goal 1:: Abolish dizzyness rolling adn feel back to normal in head at rest. Goal Progress: Goal Met Goal 2:: Balance 22/30 to minimize fall risk. Goal Progress: Goal Met Goal 3:: TUG in less than 12 seconds to show improved mobility. Goal Progress: 11 seconds. Goal 4:: Pt feel 99% back to normal Goal Progress: Goal Met - Plan Plan: D/C pt request. - D/C Information If there are questions or concerns regarding this patient's physical therapy, please feel free to call me at [phone]. Thank you for the referral of this patient. Sincerely, Panchito Garg, DPT, OCS, CSCS
== END 2018-09-11 19:00 | disposition home or self-care (01) ==
LOC: PT 11:30
PROVIDERS: Family Provider Family Medicine; PCP Family Medicine; Visit Provider Family Medicine
DX: R26.89 Other abnormalities of gait and mobility (principal); R42 Dizziness and giddiness; R26.81 Unsteadiness on feet
CPT/HCPCS: 97162; 97530

== ENCOUNTER → 2018-11-22 | Outpatient (CLI) | payer MEDICARE, SELFPAY ==
[2018-11-06 15:39] VITALS: BMI 26.2
[2018-11-22 12:38] LABS: Anion Gap 4 (5-15); BUN 30 mg/dL (7-18); BUN/Creat Ratio 17.9 RATIO (10-20); Chloride 107 mmol/L (98-107); Cholesterol 148 mg/dL (200); Creatinine, Serum 1.68 mg/dL (0.70-1.30); EST Glomerular Filtration Rate 42 mL/min (>60); Est Glom Filt Rate - Afr Amer 50 mL/min (>60); Glucose 170 mg/dL (74-106); High Density Lipoprotein 50 mg/dL; Potassium 4.7 mmol/L (3.5-5.1); Sodium Level 135 mmol/L (136-145); Triglycerides 123 mg/dL; Very Low Density Lipoprotein 25 mg/dL (5-40)
== END | disposition home or self-care (01) ==
LOC: MFPLAB 10:37
PROVIDERS: Family Provider Family Medicine; PCP Family Medicine; Referring Provider Family Medicine; Visit Provider Family Medicine
DX: E11.9 Type 2 diabetes mellitus without complications (principal)
CPT/HCPCS: 36415; 80048; 80061

== ENCOUNTER → 2019-01-22 | Outpatient (CLI) | payer MEDICARE, SELFPAY ==
[2018-11-06 15:39] VITALS: BMI 26.2
== END | disposition home or self-care (01) ==
PROVIDERS: Family Provider Family Medicine; PCP Family Medicine; Referring Provider Family Medicine; Visit Provider Family Medicine
DX: R30.0 Dysuria (principal)
CPT/HCPCS: 87086

== ENCOUNTER → 2019-09-18 10:54 | Outpatient (CLI) | payer MEDICARE, SELFPAY ==
[2019-04-25 15:29] VITALS: BMI 26.6
[2019-09-18 15:31] LABS: Anion Gap 7 (5-15); BUN 36 mg/dL (7-18); BUN/Creat Ratio 19.3 RATIO (10-20); Chloride 108 mmol/L (98-107); Creatinine, Serum 1.87 mg/dL (0.70-1.30); EST Glomerular Filtration Rate 37 mL/min (>60); Est Glom Filt Rate - Afr Amer 44 mL/min (>60); Glucose 193 mg/dL (74-106); Potassium 3.8 mmol/L (3.5-5.1); Sodium Level 139 mmol/L (136-145)
== END ==
PROVIDERS: PCP Family Medicine; Referring Provider Family Medicine; Visit Provider Family Medicine
DX: E11.9 Type 2 diabetes mellitus without complications (principal)
CPT/HCPCS: 36415; 80048

== ENCOUNTER → 2020-01-16 08:21 | Outpatient (CLI) | payer MEDICARE, SELFPAY ==
[2020-01-14 15:40] VITALS: BMI 26.2
[2020-01-16 09:31] LABS: AST(SGOT) 17 U/L (15-37); Alanine Aminotransfer ALT/SGPT 21 U/L (16-61); Albumin, Serum 3.7 g/dL (3.2-5.0); Alkaline Phosphatase 131 U/L (45-117); Bilirubin, Direct 0.17 mg/dL (0.00-0.30); Cholesterol 150 mg/dL (200); Globulin 4.3 g/dL (2.2-4.2); High Density Lipoprotein 42 mg/dL; Triglycerides 128 mg/dL; Very Low Density Lipoprotein 26 mg/dL (5-40)
== END ==
PROVIDERS: PCP Family Medicine; Visit Provider Internal Medicine Cardiovascular Disease
DX: E78.00 Pure hypercholesterolemia, unspecified (principal)
CPT/HCPCS: 36415; 80061; 80076

== ENCOUNTER → 2020-03-18 11:04 | Outpatient (CLI) | payer MEDICARE, SELFPAY ==
[2020-01-14 15:40] VITALS: BMI 26.2
[2020-03-18 13:07] LABS: Anion Gap 7 (5-15); BUN 25 mg/dL (7-18); BUN/Creat Ratio 14.1 RATIO (10-20); Chloride 106 mmol/L (98-107); Creatinine, Serum 1.77 mg/dL (0.70-1.30); EST Glomerular Filtration Rate 39 mL/min (>60); Est Glom Filt Rate - Afr Amer 47 mL/min (>60); Glucose 207 mg/dL (74-106); Potassium 4.3 mmol/L (3.5-5.1); Sodium Level 137 mmol/L (136-145)
== END ==
PROVIDERS: PCP Family Medicine; Referring Provider Family Medicine; Visit Provider Family Medicine
DX: N28.9 Disorder of kidney and ureter, unspecified (principal)
CPT/HCPCS: 36415; 80048

== ENCOUNTER → 2020-06-30 | Outpatient (CLI) | payer MEDICARE, SELFPAY ==
[2020-01-14 15:40] VITALS: BMI 26.2
== END | disposition home or self-care (01) ==
LOC: LABSPEC 15:12
PROVIDERS: PCP Family Medicine; Referring Provider Family Medicine; Visit Provider Family Medicine
DX: U07.1 COVID-19 (principal); R50.9 Fever, unspecified
CPT/HCPCS: 87635; U0005; U0003

== ENCOUNTER → 2020-08-06 14:50 | Outpatient (CLI) | payer MEDICARE, SELFPAY ==
[2020-01-14 15:40] VITALS: BMI 26.2
--- NOTE | 2020-08-06 14:54 | RAD_ITS ---
STUDY: X-RAY - RIGHT KNEE REASON FOR EXAM: Male, 85 years old. right knee swelling TECHNIQUE: 3 view(s) of the knee. COMPARISON: 03/24/2016 FINDINGS: Normal visualized distal femur. Normal visualized proximal tibia and fibula. Normal proximal tibiofibular articulation. There is mild degenerative arthrosis of the medial femorotibial compartment. There is mild degenerative arthrosis of the lateral femorotibial compartment. There is mild degenerative arthrosis of the patellofemoral articulation. There is a soft tissue prominence in the suprapatellar region suggesting a small volume joint effusion. The soft tissue structures are unremarkable. RAD/Knee 3 Views IMPRESSION: Mild arthrosis with a small joint effusion. Electronically Signed: Donavon Barrera MD at 8:31 EST Tel , Service support ,
== END ==
PROVIDERS: PCP Family Medicine; Referring Provider Family Medicine; Visit Provider Family Medicine
DX: M25.461 Effusion, right knee (principal)
CPT/HCPCS: 73562

== ENCOUNTER → 2020-09-16 11:32 | Outpatient (CLI) | payer MEDICARE, SELFPAY ==
[2020-08-10 14:00] VITALS: BMI 24.7
[2020-09-16 13:07] LABS: Anion Gap 6 (5-15); BUN 28 mg/dL (7-18); BUN/Creat Ratio 16.2 RATIO (10-20); Calcium,Total 8.9 mg/dL (8.5-10.1); Chloride 107 mmol/L (98-107); Cholesterol 181 mg/dL (200); Creatinine, Serum 1.73 mg/dL (0.70-1.30); EST Glomerular Filtration Rate 40 mL/min (>60); Est Glom Filt Rate - Afr Amer 48 mL/min (>60); Glucose 205 mg/dL (74-106); High Density Lipoprotein 49 mg/dL; Potassium 4.6 mmol/L (3.5-5.1); Sodium Level 137 mmol/L (136-145); Triglycerides 160 mg/dL; Uric Acid 6.3 mg/dL (3.5-7.2); Very Low Density Lipoprotein 32 mg/dL (5-40)
== END ==
PROVIDERS: PCP Family Medicine; Referring Provider Family Medicine; Visit Provider Family Medicine
DX: E11.9 Type 2 diabetes mellitus without complications (principal); M10.9 Gout, unspecified
CPT/HCPCS: 36415; 80048; 80061; 84550

== ENCOUNTER → 2020-12-17 12:29 | Outpatient (CLI) | payer MEDICARE, SELFPAY ==
[2020-08-10 14:00] VITALS: BMI 24.7
--- NOTE | 2020-12-17 14:34 | SP.MBSS_ITS ---
Modified Barium Swallow - Patient Information Study Date: 12/17/20 Study Time: 12:45 Direct Billable Minutes: 120 Total Minutes procedure & reportin Diagnosis: Dysphagia, unspecified (R13.10) Referring Physician: Panchito Kennedy Reason for Referral: Objectively assess swallow function and risk for aspiration. Medical History: PMH: Diabetes Mellitus, Pure hypercholesterolemia, Presence of stent in coronary artery, Atherosclerotic heart disease of [place] coronary artery without angina pectoris, Essential hypertension, Chronic kidney disease, Coronary atherosclerosis of [place] coronary artery, Hyperlipidemia, GERD. The patient was referred for Modified Barium Swallow study after reporting difficulty swallowing to his physician. He reports coughing with both food and drink intermittently. He feels at times food or drinks can go down the wrong way. He also reports odynophagia in the past few days. His , Anum, stated that foods such as burgers are harder to swallow for him. Current Diet Ordered: Regular / Thin Dentition: WNL Mental Status: WNL Respiratory Status: Oxygenating on Room Air - Study Findings Consistencies: Thin Liquid, [place] Thick Liquid, Honey Thick Liquid, Pudding, [place] - Penetration-Aspiration Scale Penetration-Aspiration Scale: OBJECTIVE ASSESSMENT OF SWALLOW FUNCTION (QUANTITATIVE ? PER TRIAL): PENETRATION / ASPIRATION SCALE (MALONE): 1 = does not enter airway 2 = enters airway/above vocal folds/ejected 3 = enters airway/above vocal folds/not ejected 4 = enters airway/contacts vocal folds/ejected 5 = enters airway/contacts vocal folds/not ejected 6 = enters airway/below vocal folds/ejected 7 = enters airway/below vocal folds/not ejected despite effort 8 = enters airway/below vocal folds/no effort VIDEOFLOROSCOPIC SCALE SCORE (MALONE): Grade I = aspiration of material that has penetrated into the laryngeal vestibule, intact cough reflex Grade II = aspiration < 10 % of the bolus, intact cough reflex Grade III = aspiration of < 10 % of the bolus, reduced cough reflex or aspiration of > 10 % of the bolus, intact cough reflex Grade IV = aspiration of > 10 % of the bolus, reduced cough reflex - Penetration-Aspiration Scale Score Thin Liquid via teaspoon Result: 2= enter airway/above vocal folds/ejected Thin Liquid via teaspoon Trial 2 Result: 1= does not enter airway Thin Liquid via small single sip from cup Result: 1= does not enter airway Thin Liquid via sequential sips from cup Result: 8= enters airway/below vocal folds/no effort [place] Thick Liquid via small single sip from cup Result: 1= does not enter airway Honey Thick Liquid via small single sip from cup Result: 1= does not enter airway - INFORMATION SYSTEMS SUPERVISOR observed post prandial aspiration in ai rway on vocal folds from previous trials, likely sequential thin trial. After completion of cookie, INFORMATION SYSTEMS SUPERVISOR cued pt to cough and reswallow to clear aspirate. Pudding Result: 1= does not enter airway Cookie with Esophageal Screen Result: 1= does not enter airway Thin Liquid via small single sip from cup Trial 2 Result: 2= enter airway/above vocal folds/ejected Thin Liquid via small single sip from cup Effortful swallow Result: 1= does not enter airway Thin Liquid via small single sip from cup Effortful swallow Trial 2 Result: 3= enters airways/above vocal folds/not ejected Thin Liquid via single sip from straw Result: 1= does not enter airway Thin Liquid via single sip from straw Effortful swallow Result: 1= does not enter airway Thin Liquid via sequential sips from straw Effortful swallow Result: 1= does not enter airway - Oral Phase Labial Seal: No Labial Escape Tongue Control During Bolus Hold: Posterior escape of greater than half of bolus Bolus Preparation/Mastication: Disorganized chewing/mashing with solid pieces of bolus unchewed - Disorganized but adequate mashing of cookie; not complete recollection of cookie with posterior escape to the vallecula Bolus Transport/Lingual Motion: Repetitive/disorganized tongue motion Oral Residue: Residue collection on oral structures - Pharyngeal Phase Initiation of Pharyngeal Swallow: Bolus head at posterior laryngeal surgace of epiglottis Soft Palate Elevation: Trace column of contrast/air between soft palate and pharyngeal wall Laryngeal Elevation: Partial superior movement thyroid cart/partial apprx aryt- epig petiole Anterior Hyoid Excursion: Partial anterior movement Epiglottic Movement: Partial inversion Laryngeal Vestibule Closure at Height of Swallow: Incomplete; narrow column of air/contrast in laryngeal vestibule Pharyngeal Stripping Wave: Present - diminished Pharyngoesophageal Segment Opening: Parital distension and partial duration; parital obstruction of flow Tongue Base Retraction: Trace column of contrast between tongue base & post. pharyngeal wall Pharyngeal Residue: Collection of residue within or on pharyngeal structures - Esophageal Phase Esophageal Clearance: Complete clearance - Treatment Strategies Effects of treatment strategies attemped:: Liquids by straw = Effective - improved bolus control and swallow onset, which resulted in improved airway closure consuming trials of thin liquids. Effortful swallow = Effective. Decreased bolus size and rate = Effective. - Diagnosis/Impression Diagnosis: Mild-moderate Oropharyngeal Phase Dysphagia (R13.12) Impression: The oral phase of the swallow is primarily marked by prolonged mastication resulting in premature posterior loss of cookie bolus to the valleculae. With increased bolus size and rate, the pt also demonstrated decreased bolus control resulting in suboptimal position of liquids on posterior surface of the epiglottis for swallow onset. The pharyngeal phase is primarily marked by reduced closure of the airway. The pt has moderately decreased anterior hyoid excursion, as well as mildly decreased laryngeal elevation resulting in insufficient epiglottic inversion and poor laryngeal vestibule closure, especially noted when consuming thin liquids. The pt consumed sips of thin liquids by cup with penetration above the vocal cords that did not always eject. He consumed sequential sips of thin liquids via cup with SILENT aspiration. INFORMATION SYSTEMS SUPERVISOR cued the pt to cough post deglutition intermittently during the study, which decreased aspirate in airway; however, the aspirate did not fully eject. Sips of thin liquids consumed via straw improved bolus control, swallow onset, and airway closure. - Recommendations Diet: Regular Textures - Easy to Chew (IDDSI Level 7), Thin Liquids Comment: Sips 1 at a time. Compensatory Strategies: Small Bites, Small Sips, Sips by straw only, Slow Rate, Multiple Swallows - with consumption of solids., Alternate bites/solids and sips/liquids, Sitting upright, Remain sitting upright for 30 minutes after PO intake - Patient has history of GERD. Supervision: Assist as needed - Family to assist with verbal cues as needed to follow through with recommended strategies. Recommend Repeat Modified Barium Swallow: TBD Need for Skilled Speech Therapy Services: Yes Comment: Will recommend the patient for outpatient speech therapy to address mild- moderate oropharyngeal dysphagia. Will recommend the pt for oropharyngeal streng thening to improve lingual coordination, hyoid excursion, laryngeal elevation, and cricopharyngeal opening and duration. The patient would benefit from continued education regarding diet recommendations and recommended compensatory strategies. Education Completed: 1. Described result of evaluation., 2. Pt understands evaluation & agrees with goals and treatment plan., 6. Family/caregivers demonstrate recommended strategies., 7. Pt requires further education on strategies & risks. Comment: Reviewed results of MBS study with pt and pt's , Anum. Educated the patient in his increased aspiration risk, as well as increased risk for aspiration related illnesses if not utilizing recommended strategies. Provided education re: diet recommendations and recommended compensatory strategies to decrease risk for aspiration with written handout. - Image Count: [id number] - Status Active ST Patient: Not Active - Contact Information [facility] Speech Therapy:: Guerita Felix M.A., [facility]-INFORMATION SYSTEMS SUPERVISOR Speech Language Pathologist [facility] [address] [place] [address] [email or web address] [phone]
== END ==
PROVIDERS: PCP Family Medicine; Referring Provider Otolaryngology; Visit Provider Otolaryngology
DX: R13.12 Dysphagia, oropharyngeal phase (principal)
CPT/HCPCS: 74230; 92611

== ENCOUNTER 2021-03-13 10:38 | Observation (INO) | payer MEDICARE, SELFPAY ==
[2021-03-13] VITALS (12 sets, daily range): BP systolic 91–143; BP diastolic 69–96; PULSE 72–97; RESP 13–18; TEMP 36.4–36.7; O2SAT 96–100; BMI 24.5; BMI 25.7
--- NOTE | 2021-03-13 10:40 | EKG12_ITS ---
Test Reason : STROKE Blood Pressure : / mmHG Vent. Rate : 078 BPM Atrial Rate : 078 BPM P-R Int : 176 ms QRS Dur : 074 ms QT Int : 372 ms P-R-T Axes : 061 053 059 degrees QTc Int : 424 ms Normal sinus rhythm Normal ECG Confirmed by TEZ DIAZ, BRO ([id number]), newspaper managing editor IAN MACARIO ([id number]) on 03/15/2021 8:08:09 AM Referred By: MIKEY Confirmed By:BRO REAGAN MD
--- NOTE | 2021-03-13 10:40 | CT_ITS ---
STUDY: CT HEAD STROKE PROTOCOL W/O CONTRAST INJECTION REASON FOR EXAM: Male, 85 years old. Neuro deficit, acute, stroke suspected RADIATION DOSAGE (If Supplied By Facility): CTDIvol = ( ) mGy, DLP = ( ) mGycm TECHNIQUE: Transaxial CT imaging of the brain was performed without administration of intravenous contrast material. Individualized dose optimization techniques were used for this CT. COMPARISON: No relevant priors. FINDINGS: Normal soft tissue structures. Normal calvarium. There is mild cerebral atrophy with widening of the extra-axial spaces and ventricular dilatation. There are areas of decreased attenuation within the white matter tracts of the supratentorial brain, consistent with microvascular disease changes. There are small punctate calcifications of the basal ganglia which are seen in the aging brain as a normal variant. Normal brainstem. Normal cerebellum. There is no intracranial hemorrhage. There are no findings of an acute ischemic infarction. Normal visualized paranasal sinuses. ASPECT score: CT/STROKE Brain/Head without Cont IMPRESSION: Chronic involutional changes of the brain. N.B. : The above Results were Read Back by Donavon Barrera MD to Dr. Maikel MD, and understanding confirmed on 03/13/2021 10:54:36 (ET). Electronically Signed: Donavon Barrera MD at 10:55 EDT Tel , Service support ,
[2021-03-13 10:53] LABS: Absolute Lymphocyte Count 1.24 X10^3/uL (0.83-4.51); Absolute Neutrophil Count 4.6 X10^3/uL (2.0-7.7); Basophil# 0.01 X10^3/uL; Basophil% 0.1 % (0-1); Eosinophil# 0.05 X10^3/uL; Eosinophils% 0.7 % (0-5); Hematocrit 43.6 % (40-54); Hemoglobin 14.5 g/dL (13.0-16.5); Lymphocyte # 1.24 X10^3/ul (0.83-4.51); Lymphocyte % 18.1 % (19-41); Mean Corp Hgb Conc 33.3 g/dL (32-36); Mean Corpuscular Hgb 30.1 pg (27.0-32.0); Mean Corpuscular Volume 90.5 fL (80-94); Mean Platelet Vol. 11.3 fl (6.2-12.0); Monocyte# 0.92 X10^3/uL; Monocyte% 13.4 % (0-10); NRBC Flagged by Analyzer 0 % (0-5); Neutrophil % 67.3 % (47-70); Platelet Count 158 K/mm3 (150-450); RBC Distribution Width CV 12.3 % (11.6-14.6); RBC Distribution Width SD 40.9 fl (35.1-43.9); Red Blood Count 4.82 M/mm3 (4.6-6.2); White Blood Count 6.9 K/mm3 (4.4-11.0)
--- NOTE | 2021-03-13 11:05 | EDS_ITS ---
HPI History of Present Illness Chief Complaint: Neuro S/Sx Informant: patient and spouse/S.O. Onset/Context/Timing Onset: Today Narrative Narrative: Patient brought in by EMS as a prehospital stroke alert. Per report from EMS patient had onset of right-sided weakness and slurred speech at 8 AM. Patient was met at the EMS bay. Quick evaluation revealed no deficits and patient was sent to CT. After patient was back in the room is able to sit down and speak with he and at bedside. said she noted slurred speech when the patient first got up this morning. An hour and a half later his speech seemed normal and then worsened again at 8 AM. 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 She states at the time of his last mini stroke they stopped his aspirin. He does not appear to be taking any blood thinner or antiplatelet agent at this time. It is noted the patient has a history of seizure. When asked states that this only happens when he has these spells as she refers to his mini strokes. Patient does state that he has not felt well the last couple days. No fever or chills. No chest pain or shortness of breath. He just feels weak and easily fatigued with exertion. [facility] Medical History (Updated 03/13/21 @ 12:[address] Sara Ko MD) Atherosclerotic heart disease of [place] coronary artery without angina pectoris Chronic kidney disease Coronary atherosclerosis of [place] coronary artery Essential hypertension Hyperlipidemia Presence of stent in coronary artery (~10/31/10) Pure hypercholesterolemia Home Medications aspirin 81 mg PO DAILY@0800 08/15/13 [History Last Taken 05/14/18] omeprazole 20 mg PO DAILY 06/26/16 [History Last Taken 08/15/18] metformin 500 mg PO DAILY 08/16/18 [History Last Taken 08/14/18] metoprolol succinate 50 mg PO DAILY 08/16/18 [History Last Taken 08/16/18] indomethacin 25 mg capsule 25 mg PO TID PRN 11/06/18 [History Last Taken Unknown] levothyroxine 112 mcg tablet 112 mcg PO DAILY 11/06/18 [History Last Taken Unknown] nitroglycerin 0.4 mg sublingual tablet 0.4 mg SUBLINGUAL Q5M PRN #25 tab 11/06/18 [Rx Last Taken Unknown] allopurinol 100 mg tablet 300 mg PO DAILY tab 04/25/19 [History Last Taken Unknown] Allergy/AdvReac Type Severity Reaction Status Date / Time clopidogrel bisulfate Allergy Rash Verified 08/10/20 13:55 [From Plavix] cyclobenzaprine Allergy Rash Verified 08/10/20 13:55 [Cyclobenzaprine] fluoxetine HCl [From Prozac] Allergy Rash Verified 08/10/20 13:55 Family History Father Diabetes Mother No problems noted. Surgical History H/O percutaneous transluminal coronary angioplasty History of back surgery History of cholecystectomy Presence of coronary angioplasty implant and graft (~10/31/10) toenail removed Social History Smoking Status: Never smoker alcohol intake: never substance use type: does not use caffeine: Yes Type: tea Number of servings: 1 what type of physical activity do you participate in: none ROS ROS ED Constitutional Constitutional ED: Denies chills or fever(s) Eyes Eyes: Denies change in vision ENT ENT ED: Denies sore throat Cardiovascular Cardiovascular: Denies chest pain Respiratory/Chest Respiratory/Chest: Denies cough or dyspnea Gastrointestinal Gastrointestinal: Denies abdominal pain, diarrhea, nausea or vomiting Genitourinary Genitourinary ED: Denies dysuria Musculoskeletal Musculoskeletal: Reports back pain Integumentary Denies rash Neurologic Neurologic: Reports weakness; Denies headache(s) Endocrine Endocrinology: Denies polydipsia or polyuria Allergic/Immunologic Allergic/Immunologic ED: Denies urticaria EXAM Physical Exam Const Vital Signs: 03/13/21 10:40 03/13/21 10:47 03/13/21 11:08 Temperature 97.6 F L 97.6 F L Temperature Source Oral Oral Pulse Rate 89 89 Respiratory Rate 16 16 Blood Pressure 139/77 H 139/77 H Blood Pressure Mean 97 97 Pulse Ox 98 98 98 Oxygen Delivery Method Room Air Room Air Room Air 03/13/21 11:47 Temperature 97.6 F L Temperature Source Oral Pulse Rate 83 Respiratory Rate 13 Blood Pressure 143/80 H Blood Pressure Mean 101 Pulse Ox 99 Oxygen Delivery Method Room Air Positive well nourished and well developed General Appearance ED: well developed HEENT Reports normocephalic and head/scalp atraumatic Eyes PERRL and EOMs intact bilaterally Neck supple Chest Wall inspection of chest normal and palpation of chest normal Resp normal respiratory effort and clear to auscultation bilaterally Cardio regular rate and regular rhythm GI normal to inspection, nondistended, normoactive bowel sounds, soft to palpation and non-tender Palpation: soft Extremity normal to inspection Neuro oriented x3 and no sensory deficits noted Neuro Narrative: NIH equals 1 for slight right facial droop when sitting at rest. When patient smiles he is able to move the right side of his face. Sensorium / Orientation: alert Motor Exam: strength 5/5 throughout Psych mental status grossly normal Skin no rashes or lesions noted STROKE Vital Signs/Narrative: Vital Signs Temp Pulse Resp BP Pulse Ox 03/13/21 11:47 97.6 F L 83 13 143/80 H 99 03/13/21 11:08 98 03/13/21 10:47 97.6 F L 89 16 139/77 H 98 03/13/21 10:40 97.6 F L 89 16 139/77 H 98 NIHSS Initial: 1a Level of Consciousness: 0 1b LOC Questions (Score 2 if aphasic/stupor): 0 1c LOC Commands (Only score 1st attempt): 0 2 Best Gaze (If aphasic, use reflexive mvmts.): 0 3 Visual: 0 4 Facial Palsy: 1 5 Motor Arm Right (UN = amputation/fusion): 0 5 Motor Arm Left: 0 6 Motor Leg Right: 0 6 Motor Leg Left: 0 7 Limb ataxia (Only + if out of proportion): 0 8 Sensory (Aphasia/stupor=0 or 1, coma=2): 0 9 Best Language: 0 10 Dysarthria (mute, coma=2, intubated=UN): 0 11 Extinction and Inattention (only scored if +): 0 Total Score: 1 MDM MDM MDM Narrative Medical decision making narrative: Patient was met at the door as a stroke alert. CT, lab work, EKG, chest x-ray obtained. Covid swab ordered. Lab Data Attestation: I reviewed the patient's lab results. Labs: Laboratory Results - last 24 hr 03/13/21 03/13/21 03/13/21 10:56 10:56 10:56 WBC 6.9 RBC 4.82 Hgb 14.5 Hct 43.6 MCV 90.5 MCH 30.1 MCHC 33.3 RDW Std Deviation 40.9 RDW Coeff of Sea 12.3 Plt Count 158 MPV 11.3 Immature Gran % (Auto) 0.400 Neut % (Auto) 67.3 Lymph % (Auto) 18.1 L [place] % (Auto) 13.4 H Eos % (Auto) 0.7 Baso % (Auto) 0.1 Absolute Neuts (auto) 4.6 Absolute Lymphs (auto) 1.24 Nucleated RBC % 0 PT 13.3 INR 1.1 APTT 32.1 Sodium 137 Potassium 4.7 Chloride 107 Carbon Dioxide 23.0 Anion Gap 7 BUN 26 H Creatinine 1.76 H Estim Creat Clear Calc 29.15 Est GFR (MDRD) Af Amer 47 L Est GFR (MDRD) Non-Af 39 L BUN/Creatinine Ratio 14.8 Glucose 163 H Calcium 8.9 Troponin I High Sens 7 Rapid Covid test negative. Radiography Diagnostic Testing: Radiology Impression Brain CT 03/13/21 10:40 IMPRESSION: Chronic involutional changes of the brain. N.B. : The above Results were Read Back by Donavon Barrera MD to Dr. Maikel MD, and understanding confirmed on 03/13/2021 10:54:36 (ET). Electronically Signed: Donavon Barrera MD at 10:55 EDT Tel , Service support , ADDENDUM: 03/13/21 1102 IMPRESSION: Chronic involutional changes of the brain. N.B. : The above Results were Read Back by Donavon Barrera MD to Dr. Maikel MD, and understanding confirmed on 03/13/2021 10:54:36 (ET). Electronically Signed: Donavon Barrera MD at 10:55 EDT Tel , Service support , Chest X-Ray 03/13/21 11:10 IMPRESSION: Normal x-ray examination of the chest. Electronically Signed: Donavon Barrera MD at 11:50 EDT Tel , Service support , EKG Initial EKG: Attestation: I personally reviewed and interpreted this EKG as follows: Interpretation: Sinus Rhythm (Sinus at 78 with no acute ischemia.) Treatment and Re-Evaluation Comments:: I spoke with the stroke neurologist shortly after the patient arrived. Because the patient's symptoms had improved he suggested admitting the patient here for full TIA work-up. Patient's lab work is reviewed and largely unremarkable other than his chronic baseline renal insufficiency. Covid test is negative. Chest x-ray reveals no focal infiltrate per my interpretation. On repeat evaluation patient's exam is unchanged. I will speak with hospitalist for admission. Discharge Plan Triage Chief Complaint: Neuro S/Sx ED Provider: Sara Ko Dx/Rx/DC Orders Clinical Impression: Brain TIA Prescriptions: No Action indomethacin 25 mg capsule 25 mg PO TID PRNRF: 0 levothyroxine 112 mcg tablet 112 mcg PO DAILY RF: 0 nitroglycerin 0.4 mg tablet, sublingual 0.4 mg SUBLINGUAL Q5M PRN (Reason: Chest Pain) Qty: 25 RF: 3 aspirin 81 MG tablet,chewable 81 mg PO DAILY@0800 RF: 0 omeprazole 20 MG capsule 20 mg PO DAILY RF: 0 metformin 500 MG tablet 500 mg PO DAILY RF: 0 metoprolol succinate 50 MG tablet extended release 24 hr 50 mg PO DAILY RF: 0 allopurinol 100 mg tablet 300 mg PO DAILY RF: 0 Primary Care Provider: Mike Salas Referrals: Mike Salas MD [Primary Care Provider] - Disposition Disposition: Acute Care Hospital [facility]
--- NOTE | 2021-03-13 11:10 | RAD_ITS ---
STUDY: X-RAY CHEST REASON FOR EXAM: Male, 85 years old. Neuro deficit, acute, stroke suspected TECHNIQUE: Single AP portable view of the chest. COMPARISON: 05/19/2018 FINDINGS: The lungs are clear and expanded. There is no demonstrated pleural abnormality. Normal size heart. Normal mediastinum and félix. Normal visualized pulmonary arteries. Normal visualized aortic arch and descending thoracic aorta. Normal visualized thoracic spine. Normal visualized ribs, clavicles, and shoulders. There is no demonstrated abnormality of the visualized soft tissue structures of the upper abdomen. RAD/Chest 1 View IMPRESSION: Normal x-ray examination of the chest. Electronically Signed: Donavon Barrera MD at 11:50 EDT Tel , Service support ,
[2021-03-13 11:17] LABS: Anion Gap 7 (5-15); BUN 26 mg/dL (7-18); BUN/Creat Ratio 14.8 RATIO (10-20); Calcium,Total 8.9 mg/dL (8.5-10.1); Chloride 107 mmol/L (98-107); Creatinine, Serum 1.76 mg/dL (0.70-1.30); EST Glomerular Filtration Rate 39 mL/min (>60); Est Glom Filt Rate - Afr Amer 47 mL/min (>60); Estimated Creatinine Clearance 29.15 ml/min; Glucose 163 mg/dL (74-106); Potassium 4.7 mmol/L (3.5-5.1); Sodium Level 137 mmol/L (136-145); Troponin-I HS 7 pg/mL (3.0-78.0)
[2021-03-13 11:20] LABS: International Normalized Ratio 1.1; Partial Thromboplast Time 32.1 Seconds (24.1-36.2); Prothrombin Time (Protime)PT. 13.3 SECONDS (11.7-14.9)
--- NOTE | 2021-03-13 13:09 | PCM.HP.STD ---
Documented by User: Arvin MARQUEZ 03/13/21 13:47 HPI - General General Date of Admission: 03/13/21 Date of Service: 03/13/21 Chief Complaint: Fatigue & weakness. HPI Narrative ROSHNI GARCIA, is a 85 M who presents to the ED at [facility] on 03/13/2021 with a chief complaint of fatigue and not feeling well. Patient also has right-sided weakness/numbness and did display some slurred speech this morning, however these are chronic issues for the patient as well as a baseline level of confusion. Patient's reports that patient has been fatigued and has not felt well for the past couple days, and that today he was not able to move under his own power which is abnormal for the patient. Patient cannot provide much insight into current condition as he is chronically confused and is only alert and oriented to self. Patient and patient's denied any other symptoms including chest pain, shortness of breath, fever, chills, N/V/D. Patient was mildly hypertensive in the ED with BP going all the way up to 150/90. Patient was initially tachycardic on presentation to the ED, however rate is now normal after 1 dose of labetalol. Other vital signs stable and patient is afebrile, currently satting at 98% on room air. CBC is unremarkable. BMP did reveal a mildly elevated creatinine at 1.7, which appears to be patient's baseline. Initial high-sensitivity troponin within normal limits. Brain CT was unremarkable for any acute findings and only demonstrated chronic involutional changes of the brain. Chest x-ray was unremarkable for any acute findings. Patient was given a loading dose of aspirin in the ED as well as 1 dose of labetalol. COUNTS INCLUDE 234 BEDS AT THE [facility] Medical History (Updated 03/13/21 @ 13:27 by Arvin MARQUEZ) Atherosclerotic heart disease of [place] coronary artery without angina pectoris Chronic kidney disease Coronary atherosclerosis of [place] coronary artery Essential hypertension Hyperlipidemia Presence of stent in coronary artery (~10/31/10) Pure hypercholesterolemia Home Medications aspirin 81 mg PO DAILY@0800 08/15/13 [History Last Taken 05/14/18] omeprazole 20 mg PO DAILY 06/26/16 [History Last Taken 08/15/18] metformin 500 mg PO DAILY 08/16/18 [History Last Taken 08/14/18] metoprolol succinate 50 mg PO DAILY 08/16/18 [History Last Taken 08/16/18] indomethacin 25 mg capsule 25 mg PO TID PRN 11/06/18 [History Last Taken Unknown] levothyroxine 112 mcg tablet 112 mcg PO DAILY 11/06/18 [History Last Taken Unknown] nitroglycerin 0.4 mg sublingual tablet 0.4 mg SUBLINGUAL Q5M PRN #25 tab 11/06/18 [Rx Last Taken Unknown] allopurinol 100 mg tablet 300 mg PO DAILY tab 04/25/19 [History Last Taken Unknown] Allergy/AdvReac Type Severity Reaction Status Date / Time clopidogrel bisulfate Allergy Rash Verified 08/10/20 13:55 [From Plavix] cyclobenzaprine Allergy Rash Verified 08/10/20 13:55 [Cyclobenzaprine] fluoxetine HCl [From Prozac] Allergy Rash Verified 08/10/20 13:55 Family History Father Diabetes Mother Diabetes Surgical History H/O percutaneous transluminal coronary angioplasty History of back surgery History of cholecystectomy Presence of coronary angioplasty implant and graft (~10/31/10) toenail removed Social History Smoking Status: Never smoker alcohol intake: never substance use type: does not use caffeine: Yes Type: tea Number of servings: 1 what type of physical activity do you participate in: none ROS Constitutional Constitutional: Reports fatigue and weakness; Denies anorexia, change in weight, chills, fever(s), malaise, night sweats or other Eyes Eyes: Denies blurry vision, change in eye color, change in vision, discharge from eye(s), double vision, erythema, eye pain, loss of vision or other ENT HEENT: Denies abnormal hearing, dysphagia, ear pain, epistaxis, headache(s), hearing loss, nasal congestion, nasal discharge, post nasal drip, sinus pressure, sore throat or other Cardiovascular Cardiovascular: Denies chest pain, claudication, dyspnea on exertion, edema, lightheadedness, orthopnea, palpitations, paroxysmal nocturnal dyspnea, rapid heart rate, syncope or other Respiratory/Chest Respiratory/Chest: Denies cough, dyspnea, excessive phlegm production, hemoptysis, productive cough, shortness of breath at rest, shortness of breath with exertion, wheezing or other Gastrointestinal Gastrointestinal: Denies abdominal pain, coffee ground emesis, constipation, diarrhea, dyspepsia, hematemesis, hematochezia, loose stools, melena, nausea, vomiting or other Genitourinary Genitourinary: Denies burning urination, difficulty urinating, dysuria, hematuria, nocturia, urinary frequency, urinary hesitancy, urinary incontinence, urinary urgency or other Musculoskeletal Musculoskeletal: Denies arthralgias, back pain, joint pain, joint stiffness, joint swelling, myalgias, neck pain or other Neurologic Neurologic: Reports abnormal speech, confusion, focal weakness, numbness and paresthesias; Denies abnormal gait, disequilibrium, dizziness, headache(s), seizure-like activity, seizures, syncope, tingling, tremor(s) or other Psychiatric Psychiatric: Denies anxiety, depression, homicidal ideation, suicidal ideation or other Endocrine Endocrinology: Denies change in body appearance, cold intolerance, excessive sweating, heat intolerance, polydipsia, polyuria or other Hematologic/Lymphatic Hematologic/Lymphatic: Denies anemia, easy bleeding, easy bruising, lymphadenopathy or other Allergic/Immunologic Allergic/Immunologic: Denies rhinitis, hives, eczemia, asthma or other Vital Signs Vital Signs Vital Signs: 03/13/21 10:40 03/13/21 10:47 03/13/21 11:08 Temperature 97.6 F L 97.6 F L Temperature Source Oral Oral Pulse Rate 89 89 Respiratory Rate 16 16 Blood Pressure 139/77 H 139/77 H Blood Pressure Mean 97 97 Pulse Ox 98 98 98 Oxygen Delivery Method Room Air Room Air Room Air 03/13/21 11:47 03/13/21 12:23 03/13/21 12:51 Temperature 97.6 F L 97.6 F L Temperature Source Oral Oral Pulse Rate 83 72 83 Respiratory Rate 13 15 16 Blood Pressure 143/80 H 143/82 H 143/80 H Blood Pressure Mean 101 102 101 Pulse Ox 99 98 100 Oxygen Delivery Method Room Air Room Air Room Air Weight Weight: 160 lb 14.999 oz Body Mass Index (BMI) 24.5 Physical Exam Const alert Constitutional Narrative: Alert and oriented to self. General Appearance: uncooperative Orientation / Consciousness: confused HEENT normocephalic, head/scalp atraumatic and hearing grossly normal bilaterally Eyes PERRL and EOMs intact bilaterally Neck no lymphadenopathy, supple and no JVD Resp normal respiratory effort, no retractions and no use of accessory muscles Cardio regular rate, regular rhythm and no JVD GI normal to inspection, nondistended, normoactive bowel sounds, soft to palpation and non-tender Extremity normal to inspection, full ROM and no clubbing, cyanosis or edema Skin no rashes or lesions noted, no wounds and skin turgor normal Neuro Neuro Narrative: Right-sided facial droop with right-sided weakness/numbness throughout the upper and lower extremities. Sensation more prevalent on the left side of the body than on the right. Sensorium / Orientation: awake, alert and oriented to person Psych affect normal Results Lab / Micro Data Result Diagrams: 03/13/21 10:56 03/13/21 10:56 Labs: Laboratory Results - last 24 hr 03/13/21 10:56: WBC 6.9, RBC 4.82, Hgb 14.5, Hct 43.6, MCV 90.5, MCH 30.1, MCHC 33.3, RDW Std Deviation 40.9, RDW Coeff of Sea 12.3, Plt Count 158, MPV 11.3, Immature Gran % (Auto) 0.400, Neut % (Auto) 67.3, Lymph % (Auto) 18.1 L, [place] % (Auto) 13.4 H, Eos % (Auto) 0.7, Baso % (Auto) 0.1, Absolute Neuts (auto) 4.6, Absolute Lymphs (auto) 1.24, Nucleated RBC % 0 03/13/21 10:56: PT 13.3, INR 1.1, APTT 32.1 03/13/21 10:56: Sodium 137, Potassium 4.7, Chloride 107, Carbon Dioxide 23.0, Anion Gap 7, BUN 26 H, Creatinine 1.76 H, Estim Creat Clear Calc 29.15, Est GFR (MDRD) Af Amer 47 L, Est GFR (MDRD) Non-Af 39 L, BUN/Creatinine Ratio 14.8, Glucose 163 H, Calcium 8.9, Troponin I High Sens 7 Micro: Microbiology 03/13/21 11:21 Nasal Secretion SARS-CoV-2 Antigen (Rapid) - Final Radiology Impression Brain CT 03/13/21 10:40 IMPRESSION: Chronic involutional changes of the brain. N.B. : The above Results were Read Back by Donavon Barrera MD to Dr. Maikel MD, and understanding confirmed on 03/13/2021 10:54:36 (ET). Electronically Signed: Donavon Barrera MD at 10:55 EDT Tel , Service support , ADDENDUM: 03/13/21 1102 IMPRESSION: Chronic involutional changes of the brain. N.B. : The above Results were Read Back by Donavon Barrera MD to Dr. Maikel MD, and understanding confirmed on 03/13/2021 10:54:36 (ET). Electronically Signed: Donavon Barrera MD at 10:55 EDT Tel , Service support , Chest X-Ray 03/13/21 11:10 IMPRESSION: Normal x-ray examination of the chest. Electronically Signed: Donavon Barrera MD at 11:50 EDT Tel , Service support , Assessment & Plan Assessment/Plan (1) RUE weakness: (2) Right arm numbness: (3) Slurred speech: PLAN: Patient is an 85-year-old male who presents to the ED at [facility] on 03/13/2021 with a chief complaint of fatigue, weakness, right-sided facial droop, slurred speech and right-sided weakness/numbness. Patient will be admitted for evaluation of strokelike symptoms. 1) suspected CVA History elucidated from patient's as patient is chronically confused and not able to provide much insight. Patients reports that patient has right-sided facial droop, right-sided weakness/numbness this morning as well as a 2-day history of just not feeling well and being fatigued and weak. It is difficult to assess how much of this is chronic versus acute due to patient's previous history of TIAs, which reports there are many. Physical exam did demonstrate right-sided weakness in the head, as well as the upper and lower extremities. Patient does feel that sensation is more prominent on the left side of his body. Brain CT did not demonstrate any acute findings and only showed chronic involutional change of the brain. 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 in 2019 where he was placed on an aspirin and statin. Plan; placed on PCU for a stroke work-up, MRI in a.m., echo in a.m., elevate HOB, serial NIHSS, PT/OT/ST eval in a.m., case management following, CBC and BMP in a.m., vital signs every 4 hours, permissive hypertension allowed up to 220/110, aspirin initiated, statin initiated, hydralazine as needed, labetalol as needed, Tylenol as needed, Zofran as needed, will obtain SOC consult and CTA of the head and neck pending morning evaluation. 2) physical debility Patient's reports that patient has been increasingly fatigued and weak the past couple days, and that today he needed to be helped to walk to the house, which is abnormal for the patient. PT/OT/ST evaluation ordered, case management following as above. 3) HTN Permissive hypertension allowed due to #1. Hold home metoprolol. 4) CAD status post stent to the LCA Patient follows with Dr. Mark, already on prescription of aspirin, metoprolol and nitroglycerin. CODE STATUS:DNRCC-A, no intubation Vaccination status: Patient and patient's have not been vaccinated against COVID-19, denies any recent sick contacts. DVT prophylaxis - low risk, not indicated Patient seen by Arvin Cerda PA-C, under the supervision of Dr. Otoole. Documented by User: Dr. Mauricio Otoole MD 03/13/21 13:52 HPI - General General Date of Admission: 03/13/21 COUNTS INCLUDE 234 BEDS AT THE [facility] Medical History (Updated 03/13/21 @ 13:27 by Arvin MARQUEZ) Atherosclerotic heart disease of [place] coronary artery without angina pectoris Chronic kidney disease Coronary atherosclerosis of [place] coronary artery Essential hypertension Hyperlipidemia Presence of stent in coronary artery (~10/31/10) Pure hypercholesterolemia Home Medications aspirin 81 mg PO DAILY@0800 08/15/13 [History Last Taken 05/14/18] omeprazole 20 mg PO DAILY 06/26/16 [History Last Taken 08/15/18] metformin 500 mg PO DAILY 08/16/18 [History Last Taken 08/14/18] metoprolol succinate 50 mg PO DAILY 08/16/18 [History Last Taken 08/16/18] indomethacin 25 mg capsule 25 mg PO TID PRN 11/06/18 [History Last Taken Unknown] levothyroxine 112 mcg tablet 112 mcg PO DAILY 11/06/18 [History Last Taken Unknown] nitroglycerin 0.4 mg sublingual tablet 0.4 mg SUBLINGUAL Q5M PRN #25 tab 11/06/18 [Rx Last Taken Unknown] allopurinol 100 mg tablet 300 mg PO DAILY tab 04/25/19 [History Last Taken Unknown] Allergy/AdvReac Type Severity Reaction Status Date / Time clopidogrel bisulfate Allergy Rash Verified 08/10/20 13:55 [From Plavix] cyclobenzaprine Allergy Rash Verified 08/10/20 13:55 [Cyclobenzaprine] fluoxetine HCl [From Prozac] Allergy Rash Verified 08/10/20 13:55 Family History Father Diabetes Mother Diabetes Surgical History H/O percutaneous transluminal coronary angioplasty History of back surgery History of cholecystectomy Presence of coronary angioplasty implant and graft (~10/31/10) toenail removed Social History Smoking Status: Never smoker alcohol intake: never substance use type: does not use caffeine: Yes Type: tea Number of servings: 1 what type of physical activity do you participate in: none Results Lab / Micro Data Result Diagrams: 03/13/21 10:56 03/13/21 10:56 Charges/Coding Addendum Addendum: Addendum: Dr. Otoole I personally examined the patient and reviewed the chart. I agree with the above. 85-year-old male presents from home with intermittent left arm numbness and slurred speech. Did not appear to be great historians, him and his , she states to me that his right facial droop is new but she told the physician janitorial assistant that it is been chronic. 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 When he first presented to the hospital he initially stated that he had right upper extremity weakness however during my evaluation he states that his left-sided. She also states that he has had multiple episodes of mini strokes but was told that he should not take aspirin. He is allergic to Plavix apparently he has a rash. We will transfer him to PCU for observation and NIH is. MRI and echo are pending in the morning, if the MRI is positive would proceed with carotid artery evaluation. In the meantime we will start him on aspirin and Lipitor. Visit Charges OBSV E&M: 45605 Initial observation care L3
[2021-03-13] MEDS: Aspirin 325 MG Tablet PO (13:26)
--- NOTE | 2021-03-13 14:01 | ECHOD_ITS ---
Reason For Study: TIA/CVA Procedure This was a 2D Doppler, Color Flow transthoracic echocardiogram. Exam performed portable in patient room. Left Ventricle Normal LV size. Left ventricular systolic function is normal. The estimated ejection fraction is 60 %. Stage 1 diastolic dysfunction. No regional wall motion abnormalities noted. Right Ventricle Normal RV size. Normal systolic function. Atria Normal left atrium. Normal right atrium. Bubble contrast study negative for right to left interatrial shunt. Mitral Valve Mitral valve not well visualized. Tricuspid Valve Normal tricuspid valve. Mild tricuspid valve insufficiency. Aortic Valve The aortic valve is not well visualized. Pulmonic Valve Normal pulmonic valve. Great Vessels Normal aortic root. The pulmonary artery is normal size. Normal inferior vena cava. Pericardium/Pleural No pericardial effusion. Medication Performed a rapid injection of agitated mix of 9 cc saline and 1cc air to assess for atrial septal defect. MMode/2D Measurements & Calculations RVDd: 3.5 cm Ao root diam: 3.3 cm LAV(MOD-bp): 28.6 ml LAV(MOD-bp) Indexed: 16.2 ml/m2 LAV(MOD-sp2): 28.2 ml LAV(MOD-sp4): 27.1 ml SV(MOD-sp4): 41.8 ml LVAd ap4: 25.2 cm2 LVAd ap2: 20.5 cm2 LVLd ap4: 8.2 cm LVLd ap2: 7.7 cm EDV(MOD-sp4): 63.2 ml EDV(MOD-sp2): 44.7 ml EDV(sp4-el): 65.6 ml EDV(sp2-el): 46.1 ml LVAs ap4: 13.6 cm2 LVAs ap2: 10.1 cm2 LVLs ap4: 7.2 cm LVLs ap2: 6.6 cm ESV(MOD-sp4): 21.5 ml ESV(MOD-sp2): 12.9 ml ESV(sp4-el): 22.0 ml ESV(sp2-el): 13.0 ml EF(MOD-sp4): 66.1 % EF(MOD-sp2): 71.1 % EF(sp4-el): 66.5 % SV(MOD-sp2): 31.8 ml SV(sp4-el): 43.7 ml LA A4 area: 12.4 cm2 LA dimension(2D): 3.4 cm RA A4 area: 13.2 cm2 Doppler Measurements & Calculations MV E max francisco: 61.3 cm/sec Lat Peak E' Francisco: 4.4 cm/sec Med Peak E' Francisco: 4.6 cm/sec MV A max francisco: 96.3 cm/sec E/E' lat: 14.0 E/E' med: 13.4 MV E/A: 0.64 Ao V2 max: 108.8 cm/sec LV V1 max: 86.1 cm/sec PA V2 max: 96.5 cm/sec Ao max P.7 mmHg LV V1 max P.0 mmHg TR max francisco: 236.7 cm/sec TR max P.4 mmHg ECHO/Echo Complete Interpretation Summary Normal LV size. Left ventricular systolic function is normal. The estimated ejection fraction is 60 %. Stage 1 diastolic dysfunction. Bubble contrast study negative for right to left interatrial shunt. Ordering Physician: Mauricio Otoole Referring Physician: Mike Salas Performed By: Gaby Richardson RDCS
[2021-03-14] VITALS (7 sets, daily range): BP systolic 126–141; BP diastolic 68–87; PULSE 65–100; RESP 14–18; TEMP 36.4–36.9; O2SAT 95–98; BMI 25.7
[2021-03-14] MEDS: Levothyroxine 112 MCG Tablet PO (03:32)
[2021-03-14 06:53] LABS: Absolute Lymphocyte Count 1.39 X10^3/uL (0.83-4.51); Absolute Neutrophil Count 3.1 X10^3/uL (2.0-7.7); Basophil# 0.02 X10^3/uL; Basophil% 0.3 % (0-1); Eosinophil# 0.08 X10^3/uL; Eosinophils% 1.4 % (0-5); Hematocrit 41.6 % (40-54); Hemoglobin 13.9 g/dL (13.0-16.5); Lymphocyte # 1.39 X10^3/ul (0.83-4.51); Lymphocyte % 23.6 % (19-41); Mean Corp Hgb Conc 33.4 g/dL (32-36); Mean Corpuscular Volume 89.8 fL (80-94); Mean Platelet Vol. 11.1 fl (6.2-12.0); Monocyte# 1.28 X10^3/uL; Monocyte% 21.7 % (0-10); NRBC Flagged by Analyzer 0 % (0-5); Neutrophil # 3.11 X10^3/uL (2.7-7.7); Neutrophil % 52.7 % (47-70); Platelet Count 146 K/mm3 (150-450); RBC Distribution Width CV 12.5 % (11.6-14.6); RBC Distribution Width SD 41.2 fl (35.1-43.9); Red Blood Count 4.63 M/mm3 (4.6-6.2); White Blood Count 5.9 K/mm3 (4.4-11.0)
--- NOTE | 2021-03-14 07:17 | PCS.PANDOC ---
PANDEMIC DOCUMENTATION INITIATED: Date: 03/13/2021 Time: 0946
[2021-03-14 07:29] LABS: Anion Gap 7 (5-15); BUN 26 mg/dL (7-18); BUN/Creat Ratio 14.4 RATIO (10-20); Calcium,Total 8.9 mg/dL (8.5-10.1); Chloride 108 mmol/L (98-107); Cholesterol 162 mg/dL (200); Creatinine, Serum 1.81 mg/dL (0.70-1.30); EST Glomerular Filtration Rate 38 mL/min (>60); Est Glom Filt Rate - Afr Amer 46 mL/min (>60); Estimated Creatinine Clearance 25.48 ml/min; Glucose 149 mg/dL (74-106); High Density Lipoprotein 39 mg/dL; Potassium 4.4 mmol/L (3.5-5.1); Sodium Level 138 mmol/L (136-145); Triglycerides 138 mg/dL; Very Low Density Lipoprotein 28 mg/dL (5-40)
[2021-03-14 08:31] LABS: Bedside Glucose 140 mg/dL (70-110)
--- NOTE | 2021-03-14 09:02 | MRI_ITS ---
EXAM: MR HEAD WITHOUT INTRAVENOUS CONTRAST CLINICAL INDICATION: CVA TECHNIQUE: Multiplanar and multisequence MR images of the brain were obtained without intravenous contrast. This report was created using [employer] report generation technology. COMPARISON: CT head without contrast 03/13/2021. FINDINGS: BRAIN AND EXTRA-AXIAL SPACES: No diffusion restriction to suspect acute or subacute ischemic infarct. T2 FLAIR hyperintensity foci in the white matter of both cerebral hemispheres are chronic white matter ischemic changes. No intra- or extra-axial hemorrhage. No intracranial mass or mass effect. Posterior fossa structures are unremarkable. Ventricles are appropriate for age. No hydrocephalus. Basal cisterns are patent. SELLA: Unremarkable. Normal sella turcica, pituitary gland, infundibular stalk, optic chiasm and hypothalamus. AUDITORY SYSTEM: Unremarkable. The internal auditory canals are patent. BONES/JOINTS: Unremarkable. No discrete lytic or blastic abnormalities. SINUSES: Unremarkable as visualized. Clear. MASTOID AIR CELLS: Unremarkable as visualized. Clear. ORBITS: Unremarkable as visualized. Both globes, extraocular muscles, optic nerves and retrobulbar fat appear unremarkable. VASCULATURE: Unremarkable as visualized. Normal flow voids in the major intracranial circulation. MRI/Brain without Contrast IMPRESSION: 1. No MRI evidence of acute or subacute ischemic infarct. 2. Chronic white matter ischemic changes in both cerebral hemispheres. Electronically Signed: Freddie German MD at 11:06 EDT , Service support ,
[2021-03-14] MEDS: Allopurinol 300 MG Tablet PO (11:12)
[2021-03-14] MEDS: Pantoprazole Sodium 20 MG Tablet PO (11:12)
[2021-03-14] MEDS: Aspirin 81 MG TAB.CHEW PO (11:12)
--- NOTE | 2021-03-14 11:31 | CASEMGMT ---
SW did not complete a PHQ 9 with patient as he is confused. Christine Perera ASSEMBLY TECHNICIAN SARAH
--- NOTE | 2021-03-14 11:42 | PCM.DC ---
Discharge Instructions Diet Discharge Diet: No restrictions Activity Discharge Activity: Return to Normal Activity Weight Bearing Status: Weight bearing as tolerated Dressing / Incision Call your doctor if you observe: Fever of 101 or Higher, Numbness or Tingling, Shortness of breath, Dizziness, Chest pain, Increased palpitations (irregular heartbeat) and Calf discomfort Follow Up Care Please Follow Up With: Primary care provider When: Within the next two weeks. Test Results: Test results from this visit will be discussed in further detail at your follow-up appointment, if applicable. Discharge Plan Admission Admit Date/Time: 03/13/21 12:54 Primary Reason for Your Visit: Stroke like symptoms Attending Provider: Sy Oneill Primary Care Provider: Mike Salas Discharge Orders/Prescriptions Prescriptions: New aspirin 81 mg tablet,chewable 81 mg PO DAILY Qty: 30 RF: 0 atorvastatin 40 mg tablet 40 mg PO QHS Qty: 30 RF: 0 Continued indomethacin 25 mg capsule 25 mg PO TID PRN (Reason: gout) RF: 0 levothyroxine 112 mcg tablet 112 mcg PO DAILY RF: 0 nitroglycerin 0.4 mg tablet, sublingual 0.4 mg SUBLINGUAL Q5M PRN (Reason: Chest Pain) Qty: 25 RF: 3 omeprazole 20 MG capsule 20 mg PO DAILY RF: 0 metoprolol succinate 50 MG tablet extended release 24 hr 50 mg PO DAILY RF: 0 allopurinol 100 mg tablet 300 mg PO DAILY RF: 0 multivitamin Tablet 1 tab PO DAILY RF: 0 Referrals / Follow Up: Mike Salas MD [Primary Care Provider] - Within 2 Weeks Disposition Disposition (needs filled in before D/C Order can be placed): Home, Self Care
--- NOTE | 2021-03-14 12:06 | CASEMGMT ---
Addendum entered by Rose Perez 03/14/21 13:57: Call back from Roseline at [facility] and she states they can accept pt at this time. Pt/ updated and voice no further questions/concerns/needs. Jonathan EDWARDS CM Addendum entered by Rose Perez 03/14/21 13:31: Call to [facility] and they state they are not accepting [facility] pt's at this time. updated and states she would like to try [facility] at this time. Call to Roseline at [facility], she is updated, and she will call this RN CM back about acceptance. Jonathan EDWARDS CM Addendum entered by Rose Perez 03/14/21 13:20: states would like referral to [facility] and referral faxed at this time. CM to follow. Jonathan EDWARDS CM Original Note: This RN CM to room to discuss discharge plan with pt/. Per , they are interested in HHC and provided a list of C providers including quality and resource use data and consistent with the patient?s preferred geographic region, medical needs, and insurance network. states they would like PT/OT and speech also recommended f/u. Order placed and this RN CM to check back with /pt regarding choice. Jonathan DEWARDS CM
--- NOTE | 2021-03-14 14:06 | PHA.DC.MC ---
Pharmacy Service has performed discharge medication reconciliation and counseling for this patient. 1. ATORVASTATIN 40MG PO QHS The patient's discharge medication list was reviewed for discrepancies and discrepancies were resolved. Home Medications omeprazole 20 mg PO DAILY 06/26/16 metoprolol succinate 50 mg PO DAILY 08/16/18 indomethacin 25 mg capsule 25 mg PO TID PRN 11/06/18 levothyroxine 112 mcg tablet 112 mcg PO DAILY 11/06/18 nitroglycerin 0.4 mg sublingual tablet 0.4 mg SUBLINGUAL Q5M PRN #25 tab 11/06/18 allopurinol 100 mg tablet 300 mg PO DAILY tab 04/25/19 multivitamin 1 tab PO DAILY 03/13/21 aspirin 81 mg PO DAILY #30 tab 03/14/21 atorvastatin 40 mg PO QHS #30 tab 03/14/21 The patient was counseled on the following discharge medications and changes in medications for homegoing were reviewed. The Reason for Use, instructions for use, and potential side effects were reviewed for all new medications. The patient's questions regarding all of their medications were answered. The patient was able to verbally demonstrate an understanding of their discharge medications.
--- NOTE | 2021-03-14 14:27 | DS.PCM_ITS ---
Documented by User: Arvin MARQUEZ 03/14/21 14:33 Providers Date of Admission: 03/13/21 Primary Care Physician: Dr. Mike Salas MD Reason For Visit: CVA R/O Diagnosis Discharge Diagnosis (1) RUE weakness: Status: Acute Code(s): R29.898 - Other symptoms and signs involving the musculoskeletal system (2) Right arm numbness: Status: Acute Code(s): R20.0 - Anesthesia of skin (3) Slurred speech: Status: Acute Code(s): R47.81 - Slurred speech Medications at Discharge Home Medications omeprazole 20 mg PO DAILY 06/26/16 metoprolol succinate 50 mg PO DAILY 08/16/18 indomethacin 25 mg capsule 25 mg PO TID PRN 11/06/18 levothyroxine 112 mcg tablet 112 mcg PO DAILY 11/06/18 nitroglycerin 0.4 mg sublingual tablet 0.4 mg SUBLINGUAL Q5M PRN #25 tab 11/06/18 allopurinol 100 mg tablet 300 mg PO DAILY tab 04/25/19 multivitamin 1 tab PO DAILY 03/13/21 aspirin 81 mg PO DAILY #30 tab 03/14/21 atorvastatin 40 mg PO QHS #30 tab 03/14/21 Hospital Course Summary of Care Provided Minutes Spent on Discharge: 35 Hospital Course: Disposition: Patient to be discharged home with home health care. 1) suspected CVA Brain MRI did not demonstrate any evidence of acute or subacute ischemic infarct and only showed chronic ischemic changes in both cerebral hemispheres. Patient still displays decreased sensation as well as weakness on the right side of his body, although these are chronic symptoms for this patient according to his . 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 Additional work-up not indicated as patient's symptoms are chronic in nature and his work-up thus far has been unremarkable. Patient is to discharge home on aspirin and statin and follow-up with his primary care provider within the next 2 weeks. 2) physical debility Home health care established for ongoing therapy needs. 3) HTN Continue home hypertensive regimen. 4) CAD status post stent to the LCA Patient follows with Dr. Mark, already on prescription of aspirin, metoprolol and nitroglycerin. Patient seen by Arvin Cerda PA-C, under the supervision of Dr. Oneill. Physical Exam Narrative Patient is an 85-year-old male comfortably resting in bed, alert and orient x3. Patient cannot provide much insight into his current condition as he is chronically demented. Right-sided weakness and level of mentation appear unchanged from yesterday. Does not appear to be in acute distress. Const alert and no apparent distress Orientation / Consciousness: awake and oriented to person Exam Limitations: altered mental status HEENT normocephalic, head/scalp atraumatic and hearing grossly normal bilaterally Eyes PERRL, EOMs intact bilaterally and conjunctivae normal Neck no lymphadenopathy, supple and no JVD Resp normal respiratory effort, no retractions, no use of accessory muscles and clear to auscultation bilaterally Cardio regular rate, regular rhythm, no murmurs and no JVD GI normal to inspection, nondistended, normoactive bowel sounds, soft to palpation and non-tender Extremity normal to inspection, full ROM and no clubbing, cyanosis or edema Skin no rashes or lesions noted, no wounds and skin turgor normal Neuro Neuro Narrative: Not able to complete full exam due to chronic patient confusion, although patient still seems to display decrease sensation on the right side as well as weakness. These are chronic conditions for this patient. Psych affect normal Weight / BMI Weight Weight: 154 lb 5.177 oz Body Mass Index (BMI) 25.7 ABG / Lab / Microbiology Data Result Diagrams: 03/14/21 06:25 03/14/21 06:25 Laboratory: Laboratory Results - last 24 hr 03/14/21 06:25: WBC 5.9, RBC 4.63, Hgb 13.9, Hct 41.6, MCV 89.8, MCH 30.0, MCHC 33.4, RDW Std Deviation 41.2, RDW Coeff of Sea 12.5, Plt Count 146 L, MPV 11.1, Immature Gran % (Auto) 0.300, Neut % (Auto) 52.7, Lymph % (Auto) 23.6, [place] % (Auto) 21.7 H, Eos % (Auto) 1.4, Baso % (Auto) 0.3, Absolute Neuts (auto) 3.1, Absolute Lymphs (auto) 1.39, Nucleated RBC % 0 03/14/21 06:25: Sodium 138, Potassium 4.4, Chloride 108 H, Carbon Dioxide 23.0, Anion Gap 7, BUN 26 H, Creatinine 1.81 H, Estim Creat Clear Calc 25.48, Est GFR (MDRD) Af Amer 46 L, Est GFR (MDRD) Non-Af 38 L, BUN/Creatinine Ratio 14.4, Glucose 149 H, Calcium 8.9, Triglycerides 138, Cholesterol 162, LDL Cholesterol 95, VLDL Cholesterol 28, HDL Cholesterol 39 L 03/14/21 08:24: POC Glucose 140 H Microbiology: Microbiology 03/13/21 11:21 Nasal Secretion SARS-CoV-2 Antigen (Rapid) - Final Radiography Diagnostic Testing: Radiology Impression Brain MRI 03/14/21 09:02 IMPRESSION: 1. No MRI evidence of acute or subacute ischemic infarct. 2. Chronic white matter ischemic changes in both cerebral hemispheres. Electronically Signed: Freddie German MD at 11:06 EDT , Service support , D/C Instructions Discharge Diet: No restrictions Weight Bearing Status: Weight bearing as tolerated Call your doctor if you observe: Fever of 101 or Higher, Numbness or Tingling, Shortness of breath, Dizziness, Chest pain, Increased palpitations (irregular heartbeat) and Calf discomfort Please Follow Up With: Primary care provider When: Within the next two weeks. Meaningful Use Info Meaningful Use Diagnoses (Choose all that apply): None applicable Discharge Plan Admission Admit Date/Time: 03/13/21 12:54 Primary Reason for Your Visit: Stroke like symptoms Attending Provider: Sy Oneill Primary Care Provider: Mike Salas Discharge Orders/Prescriptions Prescriptions: New aspirin 81 mg tablet,chewable 81 mg PO DAILY Qty: 30 RF: 0 atorvastatin 40 mg tablet 40 mg PO QHS Qty: 30 RF: 0 Continued indomethacin 25 mg capsule 25 mg PO TID PRN (Reason: gout) RF: 0 levothyroxine 112 mcg tablet 112 mcg PO DAILY RF: 0 nitroglycerin 0.4 mg tablet, sublingual 0.4 mg SUBLINGUAL Q5M PRN (Reason: Chest Pain) Qty: 25 RF: 3 omeprazole 20 MG capsule 20 mg PO DAILY RF: 0 metoprolol succinate 50 MG tablet extended release 24 hr 50 mg PO DAILY RF: 0 allopurinol 100 mg tablet 300 mg PO DAILY RF: 0 multivitamin Tablet 1 tab PO DAILY RF: 0 Referrals / Follow Up: Mike Salas MD [Primary Care Provider] - Within 2 Weeks Disposition Disposition (needs filled in before D/C Order can be placed): Home, Self Care Documented by User: Dr. Sy Oneill MD 03/14/21 14:50 Providers Date of Admission: 03/13/21 Reason For Visit: CVA R/O Medications at Discharge Home Medications omeprazole 20 mg PO DAILY 06/26/16 metoprolol succinate 50 mg PO DAILY 08/16/18 indomethacin 25 mg capsule 25 mg PO TID PRN 11/06/18 levothyroxine 112 mcg tablet 112 mcg PO DAILY 11/06/18 nitroglycerin 0.4 mg sublingual tablet 0.4 mg SUBLINGUAL Q5M PRN #25 tab 11/06/18 allopurinol 100 mg tablet 300 mg PO DAILY tab 04/25/19 multivitamin 1 tab PO DAILY 03/13/21 aspirin 81 mg PO DAILY #30 tab 03/14/21 atorvastatin 40 mg PO QHS #30 tab 03/14/21 Hospital Course Operations None Summary of Care Provided Hospital Course: This patient was seen in conjunction with Arvin Cerda PA-C. I have independently interviewed and examined the patient and reviewed pertinent historical, laboratory, and other data. Please refer to Arvin Cerda PA-C's note for details of this patient's presentation, findings, and recommendations. I have reviewed Arvin Cerda PA-C's note and concur with documented findings. In brief, patient is a 85-year-old gentleman with multiple comorbidities adm itted with right-sided weakness. Patient was admitted to a monitored bed where he underwent evaluation for possible CVA. MRI obtained was negative for acute CVA subsequently discharged home Hospital course: As documented ABG / Lab / Microbiology Data Result Diagrams: 03/14/21 06:25 03/14/21 06:25 Discharge Plan Admission Admit Date/Time: 03/13/21 12:54 Primary Reason for Your Visit: Stroke like symptoms Attending Provider: Sy Oneill Primary Care Provider: Mike Salas Discharge Orders/Prescriptions Prescriptions: New aspirin 81 mg tablet,chewable 81 mg PO DAILY Qty: 30 RF: 0 atorvastatin 40 mg tablet 40 mg PO QHS Qty: 30 RF: 0 Continued indomethacin 25 mg capsule 25 mg PO TID PRN (Reason: gout) RF: 0 levothyroxine 112 mcg tablet 112 mcg PO DAILY RF: 0 nitroglycerin 0.4 mg tablet, sublingual 0.4 mg SUBLINGUAL Q5M PRN (Reason: Chest Pain) Qty: 25 RF: 3 omeprazole 20 MG capsule 20 mg PO DAILY RF: 0 metoprolol succinate 50 MG tablet extended release 24 hr 50 mg PO DAILY RF: 0 allopurinol 100 mg tablet 300 mg PO DAILY RF: 0 multivitamin Tablet 1 tab PO DAILY RF: 0 Referrals / Follow Up: Mike Salas MD [Primary Care Provider] - Within 2 Weeks Disposition Disposition (needs filled in before D/C Order can be placed): Home, Self Care Charges/Coding Visit Charges OBSV E&M: 34899 Observation care discharge Hospital Course Imaging Results Imaging Results: 03/14/21 09:02 Brain without Contrast [MRI] Routine Operations None
--- NOTE | 2021-03-14 14:52 | NURSING ---
This RN reviewed all SN charting.
== END 2021-03-14 12:01 | disposition home health service (06) ==
LOC: ED 12:43 → PCU 12:55
PROVIDERS: Admitting Provider Family Medicine; Emergency Provider Emergency Medicine; PCP Family Medicine; Visit Provider Internal Medicine
DX: R53.1 Weakness (principal); R47.81 Slurred speech; Z23 Encounter for immunization; I25.10 Atherosclerotic heart disease of native coronary artery without angina pectoris; I12.9 Hypertensive chronic kidney disease with stage 1 through stage 4 chronic kidney disease, or unspecified chronic kidney disease; E78.5 Hyperlipidemia, unspecified; R29.701 NIHSS score 1; R29.810 Facial weakness; R20.0 Anesthesia of skin; Z95.5 Presence of coronary angioplasty implant and graft; Z79.84 Long term (current) use of oral hypoglycemic drugs; Z79.82 Long term (current) use of aspirin; Z79.899 Other long term (current) drug therapy
CPT/HCPCS: 36415; 70450; 70551; 71045; 80048; 80061; 82962; 84484; 85025; 85610; 85730; 87426; 92523; 92610; 93005; 93306; 94762; 97162; 97166; 97802; 99218; 99285; G0008; 90686; A4216; G0378

== ENCOUNTER 2021-03-21 11:44 | Emergency (ER) | payer MEDICARE, SELFPAY ==
[2021-03-21 11:45] VITALS: BP 143/82; PULSE 76; RESP 16; TEMP 36.9; O2SAT 100; BMI 26.1
--- NOTE | 2021-03-21 12:18 | CT_ITS ---
STUDY: CT CERVICAL SPINE WITHOUT CONTRAST REASON FOR EXAM: Male, 85 years old. Trauma RADIATION DOSAGE (If Supplied By Facility): CTDIvol = ( 20.92 ) mGy, DLP = ( 482.09 ) mGycm TECHNIQUE: High resolution transaxial imaging was performed without contrast material. Sagittal and coronal images were reconstructed. Individualized dose optimization techniques were used for this CT. COMPARISON: Comparison is made with prior examination dated 06/26/2016. FINDINGS: Normal craniovertebral junction. There are degenerative changes of the anterior atlantoaxial articulation. Normal odontoid process. Normal cervical lordosis. Normal vertebral bodies and posterior osseous elements. C2-3: Moderate degree of disc space narrowing. Uncovertebral arthrosis. Facet joint osteoarthritis and hypertrophy. C3-4: Moderate degree of disc space narrowing. Spondylosis. Uncovertebral arthrosis and hypertrophy of the facet joints worse on the right side. Marked degree of right neural foraminal stenosis and moderate degree of left neural foraminal stenosis. C4-5: Moderate degree of disc space narrowing. Spondylosis. Uncovertebral arthrosis. Bilateral neural foraminal stenosis worse on the right side. C5-6: Moderate degree of disc space narrowing. Posterior spondylosis on the left side of the midline causing a marked degree of left neural foraminal stenosis. Right neural foraminal stenosis. C6-7: Marked degree of disc space narrowing. Spondylosis. Uncovertebral arthrosis. Bilateral neural foraminal stenosis. C7-T1: Normal endplates. Normal disc height and morphology. Normal central canal and intervertebral neuroforamina. Normal visualized soft tissue structures. CT/Spine Cervical without Contras IMPRESSION: Multilevel degenerative changes, as described above. Electronically Signed: Kelvin Love MD at 13:29 EDT , Service support ,
--- NOTE | 2021-03-21 12:18 | CT_ITS ---
STUDY: CT BRAIN WITHOUT CONTRAST REASON FOR EXAM: Male, 85 years old. Trauma due to a fall. RADIATION DOSAGE (If Supplied By Facility): CTDIvol = ( 44.99 ) mGy, DLP = ( 779.24 ) mGycm TECHNIQUE: Transaxial CT imaging of the brain was performed without administration of intravenous contrast material. Individualized dose optimization techniques were used for this CT. COMPARISON: Comparison is made with prior examination dated 03/13/2021. FINDINGS: Normal soft tissue structures. Normal calvarium. There is mild cerebral atrophy with widening of the extra-axial spaces and ventricular dilatation. There are areas of decreased attenuation within the white matter tracts of the supratentorial brain, consistent with microvascular disease changes. There are small punctate calcifications of the basal ganglia which are seen in the aging brain as a normal variant. Normal brainstem. Normal cerebellum. There is no intracranial hemorrhage. There are no findings of an acute ischemic infarction. Atherosclerotic calcification of the vertebral arteries and cavernous portions of the internal carotid arteries bilaterally. Normal visualized paranasal sinuses. CT/Brain/Head without Contrast IMPRESSION: Chronic involutional changes of the brain. Electronically Signed: Kelvin Love MD at 13:21 EDT , Service support ,
[2021-03-21] MEDS: HYDROcodone Bitartrate/Apap 5/325 Tablet PO (12:30)
--- NOTE | 2021-03-21 12:40 | RAD_ITS ---
STUDY: X-RAY - LUMBAR SPINE REASON FOR EXAM: Male, 85 years old. Back pain following a fall. TECHNIQUE: 3 view(s) of the lumbar spine were obtained. COMPARISON: None FINDINGS: There is straightening of the normal lumbar lordosis. There is no substantial scoliosis. Stable grade 1 anterolisthesis of L5 on S1 with spondylolysis of the pars interarticularis of the L5 vertebrae. There is multilevel endplate spondylosis of the lumbar vertebrae. There is multi-level degenerative disc disease with multi-level disc space narrowing. Facet joint osteoarthritis. The soft tissue structures are unremarkable. RAD/Lumbar Spine 2 or 3 Views IMPRESSION: Degenerative changes of the spine, as detailed above. Straightening of the normal lumbar lordosis. Grade 1 anterior listhesis of L5 on S1. Electronically Signed: Kelvin Love MD at 13:25 EDT , Service support ,
--- NOTE | 2021-03-21 12:40 | RAD_ITS ---
STUDY: X-RAY - SACRUM/COCCYX REASON FOR EXAM: Male, 85 years old. Trauma TECHNIQUE: 3 view(s) of the sacrum and coccyx were obtained. COMPARISON: None. FINDINGS: Normal bilateral sacroiliac joints. Normal visualized sacral ala and fused sacral bodies. Normal sacrococcygeal junction with a normal angulation. Normal coccygeal segments. Grade 1 anterior listhesis of L5 on S1. Calcified phleboliths. Surgical clips are seen in both inguinal regions. RAD/Sacrum-Coccyx min 2 Views IMPRESSION: No acute fracture is seen. Grade 1 anterior listhesis of L5 on S1. Electronically Signed: Kelvin Love MD at 13:26 EDT , Service support ,
--- NOTE | 2021-03-21 14:02 | EDS_ITS ---
HPI History of Present Illness Chief Complaint: Fall Narrative Narrative: Patient presents with neck pain and buttock pain after mechanical fall yesterday. Most of his pain is in the buttock although he thinks he may have hit the back of his head causing him had neck pain. He has no weakness or paresthesias. No chest pain or abdominal pain or any other symptoms. [facility] Medical History (Updated 03/21/21 @ 14:[address] Mike Millan MD) Atherosclerotic heart disease of [place] coronary artery without angina pectoris Chronic kidney disease Coronary atherosclerosis of [place] coronary artery Essential hypertension Hyperlipidemia Presence of stent in coronary artery (~10/31/10) Pure hypercholesterolemia Home Medications omeprazole 20 mg PO DAILY 06/26/16 [History Last Taken 08/15/18] metoprolol succinate 50 mg PO DAILY 08/16/18 [History Last Taken 03/13/21] indomethacin 25 mg capsule 25 mg PO TID PRN 11/06/18 [History Last Taken Unknown] levothyroxine 112 mcg tablet 112 mcg PO DAILY 11/06/18 [History Last Taken Unknown] nitroglycerin 0.4 mg sublingual tablet 0.4 mg SUBLINGUAL Q5M PRN #25 tab 11/06/18 [Rx Last Taken Unknown] allopurinol 100 mg tablet 300 mg PO DAILY tab 04/25/19 [History Last Taken Unknown] multivitamin 1 tab PO DAILY 03/13/21 [History Last Taken Unknown] aspirin 81 mg PO DAILY #30 tab 03/14/21 [Rx Last Taken Unknown] atorvastatin 40 mg PO QHS #30 tab 03/14/21 [Rx Last Taken Unknown] Allergy/AdvReac Type Severity Reaction Status Date / Time clopidogrel bisulfate Allergy Rash Verified 03/21/21 11:45 [From Plavix] cyclobenzaprine Allergy Rash Verified 03/21/21 11:45 [Cyclobenzaprine] fluoxetine HCl [From Prozac] Allergy Rash Verified 03/21/21 11:45 Family History Father Diabetes Mother Diabetes Surgical History H/O percutaneous transluminal coronary angioplasty History of back surgery History of cholecystectomy Presence of coronary angioplasty implant and graft (~10/31/10) toenail removed Social History Smoking Status: Never smoker alcohol intake: never substance use type: does not use caffeine: Yes Type: tea Number of servings: 1 what type of physical activity do you participate in: none ROS ROS ED ROS Narrative Social: Noncontributory Medications: Reviewed Past medical history: Reviewed Review of systems General: Possible head injury but no loss of consciousness. HEENT: No facial injury Neck: Some neck pain. Cardiovascular: Patient denies any chest pain or palpitations Chest wall: No chest wall contusions Respiratory: There is no shortness of breath GI: There is no nausea vomiting diarrhea or abdominal pain, no abdominal wall contusions Skin: No lacerations or abrasions Neurological: Patient has no memory loss, confusion, or any focal weakness Psychiatric: No recent behavioral changes Back: Lumbar and coccyx pain Musculoskeletal: No extremity injury All other systems are reviewed and normal EXAM Physical Exam Narrative Exam Narrative: Physical exam Vitals reviewed General: Does not appear in significant distress, no obvious injuries HEENT: No facial injury Head: No head injury Eyes: Extraocular movements intact Neck: No C-spine tenderness with full range of motion, most of the pain is lower bilateral paraspinal region. Heart: Regular rate normal pulses Chest wall: No chest wall pain Lungs clear lungs bilaterally with normal inspiration and expiration without tachypnea GI: Abdomen is soft and nontender there is no mass no guarding no abdominal wall contusion : Stable pelvis Musculoskeletal: Moves all extremities without any signs of trauma Back: There is lower lumbar and sacral tenderness no tenderness over the coccyx. Skin: No abrasions or laceration Neurological: Patient is alert and oriented with no focal deficits Const Vital Signs: 03/21/21 11:45 Temperature 98.4 F Temperature Source Temporal Pulse Rate 76 Respiratory Rate 16 Blood Pressure 143/82 H Blood Pressure Mean 102 Pulse Ox 100 Oxygen Delivery Method Room Air MDM MDM MDM Narrative Medical decision making narrative: CT head and neck as well as lumbar and sacral x-rays are normal. Patient will be discharged with reassurance. Radiography Diagnostic Testing: Clinical Impression(s) from Imaging Studies Brain CT 03/21/21 12:18 IMPRESSION: Chronic involutional changes of the brain. Electronically Signed: Kelvin Love MD at 13:21 EDT , Service support , Cervical Spine CT 03/21/21 12:18 IMPRESSION: Multilevel degenerative changes, as described above. Electronically Signed: Kelvin Love MD at 13:29 EDT , Service support , Lumbar Spine X-Ray 03/21/21 12:40 IMPRESSION: Degenerative changes of the spine, as detailed above. Straightening of the normal lumbar lordosis. Grade 1 anterior listhesis of L5 on S1. Electronically Signed: Kelvin Love MD at 13:25 EDT , Service support , Sacrum and Coccyx X-Ray 03/21/21 12:40 IMPRESSION: No acute fracture is seen. Grade 1 anterior listhesis of L5 on S1. Electronically Signed: Kelvin Love MD at 13:26 EDT , Service support , Discharge Plan Triage Chief Complaint: Fall Other Complaint: Back ED Provider: Mike Millan Dx/Rx/DC Orders Clinical Impression: Head injury, Lumbar contusion Instructions: Back Safety: Standing, Back Safety: Turning Prescriptions: No Action indomethacin 25 mg capsule 25 mg PO TID PRN (Reason: gout) RF: 0 levothyroxine 112 mcg tablet 112 mcg PO DAILY RF: 0 nitroglycerin 0.4 mg tablet, sublingual 0.4 mg SUBLINGUAL Q5M PRN (Reason: Chest Pain) Qty: 25 RF: 3 omeprazole 20 MG capsule 20 mg PO DAILY RF: 0 metoprolol succinate 50 MG tablet extended release 24 hr 50 mg PO DAILY RF: 0 allopurinol 100 mg tablet 300 mg PO DAILY RF: 0 multivitamin Tablet 1 tab PO DAILY RF: 0 aspirin 81 mg tablet,chewable 81 mg PO DAILY Qty: 30 RF: 0 atorvastatin 40 mg tablet 40 mg PO QHS Qty: 30 RF: 0 Primary Care Provider: Mike Salas: Mike Salas MD [Primary Care Provider] - 2 Days Disposition Disposition: Home, Self Care
[2021-03-21 14:20] VITALS: BP 129/81; PULSE 85; RESP 16; O2SAT 97
== END 2021-03-21 14:21 | disposition home or self-care (01) ==
PROVIDERS: Emergency Provider Emergency Medicine; PCP Family Medicine
DX: S30.0XXA Contusion of lower back and pelvis, initial encounter (principal); S09.90XA Unspecified injury of head, initial encounter; M54.2 Cervicalgia; W19.XXXA Unspecified fall, initial encounter; Y93.9 Activity, unspecified; Y92.9 Unspecified place or not applicable; Y99.9 Unspecified external cause status; I12.9 Hypertensive chronic kidney disease with stage 1 through stage 4 chronic kidney disease, or unspecified chronic kidney disease; N18.9 Chronic kidney disease, unspecified; I25.10 Atherosclerotic heart disease of native coronary artery without angina pectoris; E78.5 Hyperlipidemia, unspecified; Z79.82 Long term (current) use of aspirin; Z79.890 Hormone replacement therapy; Z79.899 Other long term (current) drug therapy; Z95.5 Presence of coronary angioplasty implant and graft
CPT/HCPCS: 70450; 72100; 72125; 72220; 99283

== ENCOUNTER → 2021-04-13 | Outpatient (CLI) | payer MEDICARE, SELFPAY | END | disposition home or self-care (01) | LOC: LABSPEC 12:32 | PROVIDERS: PCP Family Medicine; Referring Provider Family Medicine; Visit Provider Family Medicine | DX: N39.0 Urinary tract infection, site not specified (principal) | CPT/HCPCS: 87086; 87088 ==

== ENCOUNTER → 2021-05-30 | Outpatient (CLI) | payer MEDICARE, SELFPAY ==
[2021-05-30 16:23] LABS: Bacteria 0 SEEN /hpf (None Seen); Mucous, Urine 0 SEEN /hpf (<or=2+); Red Blood Cells-Urine 0 SEEN /hpf (0-5); Squamous Epithelial Cells - UA 0 SEEN /hpf (0-5); White Blood Cells 0 SEEN /hpf (0-5)
[2021-05-30 16:41] LABS: Color, Urine Straw (Yellow); Glucose, Dipstick 1000 mg/dl (Normal); Ketone-Dipstick Negative (Negative); Leukocyte Esterase-Dipstick Negative /ul (Negative); Nitrite-Dipstick Negative (Negative); Occult Blood-Urine Negative /ul (Negative); Protein-Dipstick 100 mg/dl (Negative); Specific Gravity, Urine 1.015 (1.002-1.030); Urine Bilirubin Dipstick Negative (Negative); Urine Clarity Clear (Clear); Urine Urobilinogen Normal (Normal)
== END | disposition home or self-care (01) ==
LOC: LABSPEC 15:13
PROVIDERS: PCP Family Medicine; Visit Provider Physician Assistant
DX: N39.0 Urinary tract infection, site not specified (principal); R30.9 Painful micturition, unspecified
CPT/HCPCS: 81001; 87086; 87088

== ENCOUNTER 2021-06-17 15:01 | Outpatient (CLI) | payer MEDICARE, SELFPAY ==
[2021-06-17 18:13] LABS: Anion Gap 10 (5-15); BUN 31 mg/dL (7-18); BUN/Creat Ratio 16.4 RATIO (10-20); Calcium,Total 9.3 mg/dL (8.5-10.1); Chloride 105 mmol/L (98-107); Cholesterol 137 mg/dL (200); Creatinine, Serum 1.89 mg/dL (0.70-1.30); EST Glomerular Filtration Rate 36 mL/min (>60); Est Glom Filt Rate - Afr Amer 44 mL/min (>60); Free T3 1.6 pg/mL (2.18-3.98); Glucose 223 mg/dL (74-106); High Density Lipoprotein 29 mg/dL; Potassium 3.8 mmol/L (3.5-5.1); Sodium Level 138 mmol/L (136-145); T4 Free Direct 1.51 ng/dL (0.76-1.46); Thyroid Stim Hormone (TSH) 0.27 uIU/mL (0.358-3.74); Triglycerides 163 mg/dL; Very Low Density Lipoprotein 33 mg/dL (5-40)
== END 2021-06-17 23:59 | disposition short-term general hospital (02) ==
LOC: MFPLAB 15:04
PROVIDERS: PCP Family Medicine; Referring Provider Family Medicine; Visit Provider Family Medicine
DX: E03.9 Hypothyroidism, unspecified (principal); E11.9 Type 2 diabetes mellitus without complications
CPT/HCPCS: 36415; 80048; 80061; 84439; 84443; 84481

== ENCOUNTER 2021-07-29 09:54 | Day surgery (SDC) | payer MEDICARE, SELFPAY ==
[2021-07-29] VITALS (8 sets, daily range): BP systolic 114–161; BP diastolic 57–90; PULSE 72–91; RESP 16–18; TEMP 36.3–36.9; O2SAT 97–100; BMI 24.7
[2021-07-29] MEDS: Lactated Ringers 1,000 ML 15 ML IV (10:30)
[2021-07-29] MEDS: Lubricating Jelly 60 GM Tube 30 GM (12:50)
[2021-07-29] MEDS: Lidocaine 4% 50 ML Bottle (12:50)
--- NOTE | 2021-07-29 12:59 | PCM.OPRPT ---
Problems Associated Problem List Diagnoses (1) Cricopharyngeal hypertrophy: (2) Cricopharyngeal dysphagia: Report of Operation Date of Procedure: 07/29/21 Pre-Operative Diagnosis: Cricopharyngeal dysfunction, dysphagia Post-Operative Diagnosis: Same Surgery/Procedure Performed:: Direct laryngoscopy, esophageal dilation Description of Surgical Findings:: Александр is an 86-year-old male with complaints of coughing and choking with eating which examination showing retention of hypopharyngeal secretions and barium swallow showing cricopharyngeal dysfunction. Esophageal dilation in hopes of reduced symptoms and improve swallowing was offered and he was eager to proceed. The risks, alternatives, potential complications, and benefits were discussed at length and any questions answered to the patient and/or caregiver's satisfaction. Witnessed informed consent was obtained in the office, and the patient and/or caregiver was agreeable to proceed. Procedure went as follows: The patient was identified in the preoperative holding and brought to the operating room, placed under general anesthesia, and intubated. When appropriate anesthesia was obtained, the head of bed was rotated and the patient prepped and draped in usual sterile fashion. He was noted to have very very poor neck extension necessitating the use of the glide scope for visualization for laryngeal intubation and this was additionally used for his laryngoscopy. Direct laryngoscopy was then carried out. The lateral posterior pharyngeal wall mucosa, tonsillar fossa, vallecula, piriforms, and epiglottis were noted to be normal in appearance. The true and false vocal folds were then brought into view. These were again noted to be normal in appearance. The esophageal inlet was then visualized and under visualization dilation bougies beginning at 30 [place] advancing to 54 [place] were then placed to dilate the cervical esophageal inlet. This was completed without complication and upon completion laryngoscope was withdrawn after suctioning the lubricating material from the pharynx and the patient returned to anesthesia where he was revived extubated complication having tolerated procedure well. Surgeon: Panchito Kennedy Type of Anesthesia: General Anesthesiologist: Raulito Deleon Special Medications: none Specimen's removed: none Drains: none Estimated Blood Loss (mL): 0 mL Fluids Replaced: 500 mL Grafts/Implants Used: none Complications none Admit VTE Documentation VTE Present on Admission: No VTE Mechan Device Prophylaxis: SCD's VTE Pharm Prophylaxis ordered?: No
--- NOTE | 2021-07-29 13:08 | PCM.DC ---
Discharge Instructions Diet Discharge Diet: - (clear liquids for 24 hours, may advance to full liquids, soft diet if no fever or chest pain) Activity Discharge Activity: Return to Normal Activity Dressing / Incision Call your doctor if your incision/area has: Increased Pain/ Swelling Call your doctor if you observe: Fever of 101 or Higher, Shortness of breath and Chest pain Follow Up Care Please Follow Up With: Panchito Kenneyd MD When: 2 weeks Test Results: Test results from this visit will be discussed in further detail at your follow-up appointment, if applicable. Discharge Plan Admission Primary Reason for Your Visit: Cricopharyngeal dysfuction Attending Provider: Panchito Kennedy Primary Care Provider: Mike Salas Instructions Additional Instructions / Restrictions: Patient desired to go home, understands remote risk of infection. Agrees to clear fluids only for 24 hours, then advance as tolerated to soft foods and full liquids. He will notify me for fever, worsening pain, shortness of breath or chest pain. Discharge Orders/Prescriptions Prescriptions: No Action indomethacin 25 mg capsule 25 mg PO TID PRN (Reason: gout) RF: 0 levothyroxine 112 mcg tablet 112 mcg PO DAILY RF: 0 nitroglycerin 0.4 mg tablet, sublingual 0.4 mg SUBLINGUAL Q5M PRN (Reason: Chest Pain) Qty: 25 RF: 3 omeprazole 20 MG capsule 20 mg PO DAILY RF: 0 metoprolol succinate 50 MG tablet extended release 24 hr 50 mg PO DAILY RF: 0 allopurinol 100 mg tablet 300 mg PO DAILY PRN (Reason: Gout) RF: 0 multivitamin Tablet 1 tab PO DAILY RF: 0 aspirin 81 mg tablet,chewable 81 mg PO QODAY RF: 0 tizanidine [Zanaflex] 2 mg capsule 2 mg PO TID PRN (Reason: muscle spasticity) RF: 0 donepezil 5 mg tablet 5 mg PO DAILY RF: 0 metformin 500 mg tablet 500 mg PO DAILY RF: 0 Referrals / Follow Up: Mike Salas MD [Primary Care Provider] - Disposition Disposition (needs filled in before D/C Order can be placed): Home, Self Care
[2021-07-29 13:41] LABS: Bedside Glucose 139 mg/dL (70-110)
--- NOTE | 2021-07-29 14:14 | SUR.PHASEII ---
PATIENT SPITTING THIN, CLEAR SPUTUM FREQUENTLY. DENIES DIFFICULTY SWALLOWING, JUST FEELS LIKE I GOT PHLEGM. NO BLOOD NOTED. ENCOURAGE DRINKING CLEAR LIQUIDS. AVOID HARSH THROAT CLEARING OR COUGHING. AT BEDSIDE READING POST-OP MATERIALS.
--- NOTE | 2021-07-29 17:10 | SUR.PHASEII ---
PATIENT DENIES ANY CHEST PAIN, DIFFICULTY SWALLOWING, ABLE TO SWALLOW CLEAR LIQUIDS WITHOUT DIFFICULTY. NO FEVERS. HAS VOIDED SEVERAL TIMES POST-OP. DENIES ANY PALPITATIONS. STATES READY TO GO HOME. BOTH PATIENT & VERBALIZE UNDERSTANDING.
== END 2021-07-29 23:59 | disposition home or self-care (01) ==
LOC: SDC 09:59 → AC 10:01
PROVIDERS: PCP Family Medicine; Referring Provider Otolaryngology; Visit Provider Otolaryngology
PROC: 0CJS8ZZ Inspection of Larynx, Via Natural or Artificial Opening Endoscopic (ICD-10-PCS; CPT 31575; principal; 2021-07-29 11:45)
DX: R13.12 Dysphagia, oropharyngeal phase (principal); I25.118 Atherosclerotic heart disease of native coronary artery with other forms of angina pectoris; E11.9 Type 2 diabetes mellitus without complications; R13.14 Dysphagia, pharyngoesophageal phase; Z20.822 Contact with and (suspected) exposure to COVID-19; I10 Essential (primary) hypertension; E78.5 Hyperlipidemia, unspecified; E07.9 Disorder of thyroid, unspecified; M19.90 Unspecified osteoarthritis, unspecified site; K21.9 Gastro-esophageal reflux disease without esophagitis; Z86.73 Personal history of transient ischemic attack (TIA), and cerebral infarction without residual deficits; Z79.82 Long term (current) use of aspirin; Z79.84 Long term (current) use of oral hypoglycemic drugs; Z79.890 Hormone replacement therapy; Z79.899 Other long term (current) drug therapy
CPT/HCPCS: 31525; 43450; 00320; 82962; 87426; C9803; J7120; J2405

== ENCOUNTER → 2021-11-05 | Outpatient (CLI) | payer MEDICARE, SELFPAY ==
[2021-11-08 11:12] LABS: Bacteria 0 SEEN /hpf (None Seen); Mucous, Urine 0 SEEN /hpf (<or=2+); Red Blood Cells-Urine 0 SEEN /hpf (0-5); Squamous Epithelial Cells - UA 0 SEEN /hpf (0-5); White Blood Cells 0 SEEN /hpf (0-5)
[2021-11-08 11:38] LABS: Color, Urine Yellow (Yellow); Glucose, Dipstick Normal (Normal); Ketone-Dipstick Negative (Negative); Leukocyte Esterase-Dipstick Negative /ul (Negative); Nitrite-Dipstick Negative (Negative); Occult Blood-Urine Negative /ul (Negative); Protein-Dipstick 500 mg/dl (Negative); Urine Bilirubin Dipstick Negative (Negative); Urine Clarity Clear (Clear); Urine Urobilinogen Normal (Normal)
== END | disposition home or self-care (01) ==
PROVIDERS: PCP Family Medicine; Visit Provider Nurse Practitioner Family
DX: R30.9 Painful micturition, unspecified (principal); Z79.899 Other long term (current) drug therapy
CPT/HCPCS: 81001; 87086; 87088

== ENCOUNTER → 2021-12-05 | Outpatient (CLI) | payer MEDICARE, SELFPAY ==
--- NOTE | 2021-12-05 11:46 | RAD_ITS ---
STUDY: X-RAY - ABDOMEN/PELVIS REASON FOR EXAM: Male, 86 years old. PAIN TECHNIQUE: AP supine and upright views, 3 images. COMPARISON: None. FINDINGS: The bowel gas pattern is normal. There is no bowel obstruction or free intraperitoneal air. No abnormal mass or calcification is seen. Surgical clips in the lower abdomen and pelvis. Clips in the right upper abdomen previous cholecystectomy. Degenerative changes in the lumbar spine. Lung bases are clear. RAD/Abd Inc Decub and/or Erect IMPRESSION: No acute findings. Electronically Signed: Lidia Blum MD at 6:52 EDT ,
== END | disposition home or self-care (01) ==
LOC: MTRAD 11:43
PROVIDERS: PCP Family Medicine; Referring Provider Family Medicine; Visit Provider Family Medicine
DX: R10.9 Unspecified abdominal pain (principal)
CPT/HCPCS: 74019

== ENCOUNTER → 2021-12-29 | Outpatient (CLI) | payer MEDICARE, SELFPAY ==
[2021-12-29 18:22] LABS: ALB/GLOB Ratio 0.9 RATIO (0.9-2.4); AST(SGOT) 25 U/L (15-37); Alanine Aminotransfer ALT/SGPT 29 U/L (16-61); Albumin, Serum 3.7 g/dL (3.2-5.0); Alkaline Phosphatase 83 U/L (45-117); Anion Gap 4 (5-15); BUN 42 mg/dL (7-18); BUN/Creat Ratio 20.6 RATIO (10-20); Calcium,Total 9.3 mg/dL (8.5-10.1); Chloride 109 mmol/L (98-107); Cholesterol 129 mg/dL (200); Creatinine, Serum 2.04 mg/dL (0.70-1.30); EST Glomerular Filtration Rate 33 mL/min (>60); Est Glom Filt Rate - Afr Amer 40 mL/min (>60); Globulin 4.3 g/dL (2.2-4.2); Glucose 130 mg/dL (74-106); High Density Lipoprotein 33 mg/dL; Potassium 4.4 mmol/L (3.5-5.1); Prealbumin 26.9 mg/dL (20.0-40.0); Sodium Level 139 mmol/L (136-145); Thyroid Stim Hormone (TSH) 0.18 uIU/mL (0.358-3.74); Triglycerides 209 mg/dL; Very Low Density Lipoprotein 42 mg/dL (5-40)
== END | disposition home or self-care (01) ==
LOC: MFPLAB 15:02
PROVIDERS: PCP Family Medicine; Referring Provider Family Medicine; Visit Provider Family Medicine
DX: E03.9 Hypothyroidism, unspecified (principal); R64 Cachexia; E11.9 Type 2 diabetes mellitus without complications
CPT/HCPCS: 36415; 80053; 80061; 84134; 84443

== ENCOUNTER → 2022-03-07 | Outpatient (CLI) | payer MEDICARE, SELFPAY ==
--- NOTE | 2022-03-07 15:18 | SP.MBSS_ITS ---
Modified Barium Swallow - Patient Information Study Date: 03/07/22 Study Time: 13:00 Direct Billable Minutes: 115 Total Minutes procedure & reportin Diagnosis: Cricopharyngeal dysphagia (R13.13), GERD (K21.9) Referring Physician: Victorino Hugo Reason for Referral: Objectively assess swallow function, risk for aspiration, and determine recommendations for least restrictive diet textures and compensatory strategies to improve safety of swallow. Medical History: PMH: Diabetes Mellitus, Pure hypercholesterolemia, Presence of stent in coronary artery, Atherosclerotic heart disease of [place] coronary artery without angina pectoris, Essential hypertension, Chronic kidney disease, Coronary atherosclerosis of [place] coronary artery, Hyperlipidemia, GERD. The patient was referred for MBSS after reporting continued difficulty swallowing to his court abstractor, Dr. Hugo. He was initially referred for a barium esophagram, but pt was not appropriate due to hx of SILENT aspiration with sequential sips of thin liquids per MBSS 12/17/2020. The patient reports most difficulty consuming solids. He has intermittent coughing episodes to attempt clearing them. No choking history or PNA. Per his , Anum, he will sometimes cough hard after a meal is completed, as well. 12/17/2020 MBSS completed and revealed mild-moderate oropharyngeal phase dysphagia and SILENT aspiration of sequential sips of thin liquids. He was recommended for Easy to Chew textures (IDDSI Level 7), Thin Liquids and the following compensatory strategies: Sips 1 at a time, Small Bites, Small Sips, Sips by straw only, Slow Rate, Multiple Swallows - with consumption of solids, Alternate bites/solids and sips/liquids, Sitting upright, Remain sitting upright for 30 minutes after PO. He was additionally recommended to have family assist with verbal cues as needed. ELECTRIC POWER SUPERINTENDENT also recommended the patient follow-up with outpatient speech therapy. Per , the patient has not had follow-up therapy. 07/29/21 the patient underwent direct laryngoscopy with esophageal dilation due to cricopharyngeal hypertrophy and dysphagia. The patient feels this dilation was not effective at improving his swallow. Current Diet Ordered: Regular textures / Thin liquids Dentition: Natural Teeth, Missing Teeth Mental Status: WNL - Able to follow commands for evaluation, but required repetition of recommendations and results of study Respiratory Status: Oxygenating on Room Air - Penetration-Aspiration Scale Penetration-Aspiration Scale: OBJECTIVE ASSESSMENT OF SWALLOW FUNCTION (QUANTITATIVE ? PER TRIAL): PENETRATION / ASPIRATION SCALE (MALONE): 1 = does not enter airway 2 = enters airway/above vocal folds/ejected 3 = enters airway/above vocal folds/not ejected 4 = enters airway/contacts vocal folds/ejected 5 = enters airway/contacts vocal folds/not ejected 6 = enters airway/below vocal folds/ejected 7 = enters airway/below vocal folds/not ejected despite effort 8 = enters airway/below vocal folds/no effort VIDEOFLOROSCOPIC SCALE SCORE (MALONE): Grade I = aspiration of material that has penetrated into the laryngeal vestibule, intact cough reflex Grade II = aspiration < 10 % of the bolus, intact cough reflex Grade III = aspiration of < 10 % of the bolus, reduced cough reflex or aspiration of > 10 % of the bolus, intact cough reflex Grade IV = aspiration of > 10 % of the bolus, reduced cough reflex - Penetration-Aspiration Scale Score Thin Liquid via teaspoon Result: 1= does not enter airway Thin Liquid via teaspoon Trial 2 Result: 8= enters airway/below vocal folds/no effort - Grade III = aspiration of < 10 % of the bolus, SILENT aspiration [place] Thick Liquid via small single sip from cup Result: 1= does not enter airway Pudding via teaspoon with esophageal screen Result: 1= does not enter airway Comment: Timely bolus clearance through the esophagus. 1/2 Cookie Result: 1= does not enter airway Comment: Post prandial aspiration of contrast in the laryngeal vestibule during the swallow - ELECTRIC POWER SUPERINTENDENT suspecting penetration of pudding thick residue after the swallow - Grade III = aspiration of < 10 % of the bolus, SILENT aspiration. Thin Liquid via sequential sips from straw Result: 1= does not enter airway Thin Liquid via large single sip from cup Result: 2= enter airway/above vocal folds/ejected Comment: ELECTRIC POWER SUPERINTENDENT cued cough and re-swallow after the trial to somewhat clear contrast in the laryngeal vestibule still present from previous trials. Thin Liquid via small single sip from cup Trial 2 Result: 3= enters airways/above vocal folds/not ejected Thin Liquid via small single sip from cup Effortful swallow with esophageal screen Result: 2= enter airway/above vocal folds/ejected Thin Liquid via small single sip from cup Double swallow Result: 1= does not enter airway - Oral Phase Labial Seal: No Labial Escape Tongue Control During Bolus Hold: Posterior escape of less than half of bolus Bolus Preparation/Mastication: Slow prolonged chewing/mashing with complete recollection - Pt's voiced concern that he doesn't chew certain foods thoroughly enough Bolus Transport/Lingual Motion: Delayed initiation of tongue motion Oral Residue: Residue collection on oral structures - Pharyngeal Phase Initiation of Pharyngeal Swallow: Bolus head in valleculae Soft Palate Elevation: No bolus between soft palate and pharyngeal wall Laryngeal Elevation: Partial superior movement thyroid cart/partial apprx aryt- epig petiole Anterior Hyoid Excursion: Partial anterior movement Epiglottic Movement: Complete inversion Laryngeal Vestibule Closure at Height of Swallow: Incomplete; narrow column of air/contrast in laryngeal vestibule Pharyngeal Stripping Wave: Present - diminished Pharyngoesophageal Segment Opening: Parital distension and partial duration; parital obstruction of flow Tongue Base Retraction: Wide column of contrast between tongue base & post. pharyngeal wall Pharyngeal Residue: Collection of residue within or on pharyngeal structures - Esophageal Phase Esophageal Clearance: Esophageal retention - minimal retention of liquids in lower esophagus, no retrograde flow observed - Treatment Strategies Effects of treatment strategies attemped:: Effortful swallow = somewhat effective. Double swallow = effective. Liquid wash = somewhat effective. Cough and re-swallow = somewhat effective. - Diagnosis/Impression Diagnosis: Moderate oropharyngeal phase dysphagia (R13.12) Impression: The oral phase is primarily marked by... -Prolonged mastication abilities. Per pt's , he does not always thoroughly chew foods. He does well with breads, but has difficulty with foods like pork chops. Will recommend Easy to Chew textures. -Mild oral residue of cookie after the swallow. Liquid trial following the cookie cleared the oral residue. -Mildly delayed tongue motion for A-P transport. The pharyngeal phase is primarily marked by... -Decreased airway closure during the swallow due to decreased laryngeal elevation and anterior hyoid excursion during the swallow. -Decreased tongue base retraction, pharyngeal contraction, and UES opening/duration with resulting collections of pharyngeal residues in the vallecula and pyriforms after the swallow - especially noted with large sips, thicker viscosities, and solids. -SILENT aspiration of thin liquids via tsp during the swallow. SILENT post prandial aspiration of residue in the laryngeal vestibule on subsequent swallows (likely pudding residue). Laryngeal penetration of cup sips of thin liquids, which did not fully eject from the laryngeal vestibule on 1/4 trials. Cued cough and re-swallow did somewhat clear the laryngeal vestibule. - Recommendations Diet: Thin Liquids - Easy to Chew textures (IDDSI Level 7) Comment: Pt aspirated thin by tsp - recommended for mixed consistencies, such as soups/cereals, to strain the liquids off and eat food/drinks separately (liquids by cup). Compensatory Strategies: Small Bites, Small Sips - Intermittent cough and re- swallow during meal, No Straws - Liquids by cup only, Slow Rate, Multiple Swallows - 2 swallows per each bite and sip, Alternate bites/solids and sips/liquids, Sitting upright, Remain sitting upright for 30 minutes after PO intake Supervision: 1:1 Close Supervision - is present for all meals to assist cueing pt for strategies as needed Recommend Repeat Modified Barium Swallow: TBD - If concern for increased s/s of aspiration, will recommend repeat MBSS. Need for Skilled Speech Therapy Services: Yes Comment: Will recommend the patient for outpatient dysphagia therapy to address deficits in oropharyngeal swallow function. Will recommend the patient for oropharyngeal strengthening to improve laryngeal elevation, anterior hyoid excursion, tongue base retraction, pharyngeal contraction, and duration of UES opening (CTAR, Giselle, Rena, Effortful, Effortful breath hold and swallow). The patient would benefit from thorough education regarding diet recommendations and recommended compensatory strategies to decrease his risk for aspiration. Education Completed: 1. Described result of evaluation., 4. Family/caregivers understand evaluation & agree w/ goals & tx plan., 7. Pt requires further education on strategies & risks. - Status Active ST Patient: Active - Contact Information [facility] Speech Therapy:: Guerita Felix M.A. [facility]-ELECTRIC POWER SUPERINTENDENT Speech-Language Pathologist [facility] [address] [place] [address] [phone] 03/07/22 15:33
== END | disposition home or self-care (01) ==
LOC: RAD 12:45
PROVIDERS: PCP Family Medicine; Referring Provider Internal Medicine Gastroenterology; Visit Provider Internal Medicine Gastroenterology
DX: R13.12 Dysphagia, oropharyngeal phase (principal)
CPT/HCPCS: 74230; 92611

== ENCOUNTER → 2022-03-23 | Outpatient (CLI) | payer MEDICARE, SELFPAY ==
[2022-03-23 15:20] LABS: Mucous, Urine 0 SEEN /hpf (<or=2+); White Blood Cells 0 SEEN /hpf (0-5)
[2022-03-23 15:46] LABS: Color, Urine Yellow (Yellow); Glucose, Dipstick 100 mg/dl (Normal); Ketone-Dipstick Negative (Negative); Leukocyte Esterase-Dipstick Negative /ul (Negative); Nitrite-Dipstick Negative (Negative); Occult Blood-Urine 25 /ul (Negative); Protein-Dipstick 500 mg/dl (Negative); Urine Bilirubin Dipstick Negative (Negative); Urine Clarity Clear (Clear); Urine Urobilinogen Normal (Normal)
[2022-03-23 17:13] LABS: Bacteria 1+ /hpf (None Seen); Red Blood Cells-Urine 0-5 SEEN /hpf (0-5); Squamous Epithelial Cells - UA 0-5 SEEN /hpf (0-5)
[2022-03-23 17:14] LABS: Fine Granular Cast- Urine 5-10 SEEN /lpf (0-5)
== END | disposition home or self-care (01) ==
LOC: LABSPEC 15:11
PROVIDERS: PCP Family Medicine; Visit Provider Physician Assistant
DX: N39.0 Urinary tract infection, site not specified (principal); R35.0 Frequency of micturition
CPT/HCPCS: 81001; 87086; 87088

== ENCOUNTER 2022-04-07 10:30 | Outpatient (RCR) | payer MEDICARE, SELFPAY ==
--- NOTE | 2022-03-20 10:47 | ST ---
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 Medical History: PMH: Diabetes Mellitus, Pure hypercholesterolemia, Presence of stent in coronary artery, Atherosclerotic heart disease of [place] coronary artery without angina pectoris, Essential hypertension, Chronic kidney disease, Coronary atherosclerosis of [place] coronary artery, Hyperlipidemia, GERD. 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 Hugo. He was initially referred for a barium esophagram, but pt was not appropriate due to hx of SILENT aspiration with sequential sips of thin liquids per MBSS 12/17/2020. The patient reports most difficulty consuming solids. He has intermittent coughing episodes to attempt clearing them. No choking history or PNA. Per his , Anum, he will sometimes cough hard after a meal is completed, as well. 12/17/2020 MBSS completed and revealed mild-moderate oropharyngeal phase dysphagia and SILENT aspiration of sequential sips of thin liquids. He was recommended for Easy to Chew textures (IDDSI Level 7), Thin Liquids and the following compensatory strategies: Sips 1 at a time, Small Bites, Small Sips, Sips by straw only, Slow Rate, Multiple Swallows - with consumption of solids, Alternate bites/solids and sips/liquids, Sitting upright, Remain sitting upright for 30 minutes after PO. He was additionally recommended to have family assist with verbal cues as needed. POEM WRITER also recommended the patient follow-up with outpatient speech therapy. Per , the patient has not had follow-up therapy. 07/29/21 the patient underwent direct laryngoscopy with esophageal dilation due to cricopharyngeal hypertrophy and dysphagia. The patient feels this dilation was not effective at improving his swallow. Current Diet Ordered: Regular textures / Thin liquids Dentition: Natural Teeth, Missing Teeth Mental Status: WNL - Able to follow commands for evaluation, but required repetition of recommendations and results of study Respiratory Status: Oxygenating on Room Air - Penetration-Aspiration Scale Penetration-Aspiration Scale: OBJECTIVE ASSESSMENT OF SWALLOW FUNCTION (QUANTITATIVE ? PER TRIAL): PENETRATION / ASPIRATION SCALE (MALONE): 1 = does not enter airway 2 = enters airway/above vocal folds/ejected 3 = enters airway/above vocal folds/not ejected 4 = enters airway/contacts vocal folds/ejected 5 = enters airway/contacts vocal folds/not ejected 6 = enters airway/below vocal folds/ejected 7 = enters airway/below vocal folds/not ejected despite effort 8 = enters airway/below vocal folds/no effort VIDEOFLOROSCOPIC SCALE SCORE (MALONE): Grade I = aspiration of material that has penetrated into the laryngeal vestibule, intact cough reflex Grade II = aspiration < 10 % of the bolus, intact cough reflex Grade III = aspiration of < 10 % of the bolus, reduced cough reflex or aspiration of > 10 % of the bolus, intact cough reflex Grade IV = aspiration of > 10 % of the bolus, reduced cough reflex - Penetration-Aspiration Scale Score Thin Liquid via teaspoon Result: 1= does not enter airway Thin Liquid via teaspoon Trial 2 Result: 8= enters airway/below vocal folds/no effort - Grade III = aspiration of < 10 % of the bolus, SILENT aspiration [place] Thick Liquid via small single sip from cup Result: 1= does not enter airway Pudding via teaspoon with esophageal screen Result: 1= does not enter airway Comment: Timely bolus clearance through the esophagus. 1/2 Cookie Result: 1= does not enter airway Comment: Post prandial aspiration of contrast in the laryngeal vestibule during the swallow - POEM WRITER suspecting penetration of pudding thick residue after the swallow - Grade III = aspiration of < 10 % of the bolus, SILENT aspiration. Thin Liquid via sequential sips from straw Result: 1= does not enter airway Thin Liquid via large single sip from cup Result: 2= enter airway/above vocal folds/ejected Comment: POEM WRITER cued cough and re-swallow after the trial to somewhat clear contrast in the laryngeal vestibule still present from previous trials. Thin Liquid via small single sip from cup Trial 2 Result: 3= enters airways/above vocal folds/not ejected Thin Liquid via small single sip from cup Effortful swallow with esophageal screen Result: 2= enter airway/above vocal folds/ejected Thin Liquid via small single sip from cup Double swallow Result: 1= does not enter airway - Oral Phase Labial Seal: No Labial Escape Tongue Control During Bolus Hold: Posterior escape of less than half of bolus Bolus Preparation/Mastication: Slow prolonged chewing/mashing with complete recollection - Pt's voiced concern that he doesn't chew certain foods thoroughly enough Bolus Transport/Lingual Motion: Delayed initiation of tongue motion Oral Residue: Residue collection on oral structures - Pharyngeal Phase Initiation of Pharyngeal Swallow: Bolus head in valleculae Soft Palate Elevation: No bolus between soft palate and pharyngeal wall Laryngeal Elevation: Partial superior movement thyroid cart/partial apprx aryt-epig petiole Anterior Hyoid Excursion: Partial anterior movement Epiglottic Movement: Complete inversion Laryngeal Vestibule Closure at Height of Swallow: Incomplete; narrow column of air/contrast in laryngeal vestibule Pharyngeal Stripping Wave: Present - diminished Pharyngoesophageal Segment Opening: Parital distension and partial duration; parital obstruction of flow Tongue Base Retraction: Wide column of contrast between tongue base & post. pharyngeal wall Pharyngeal Residue: Collection of residue within or on pharyngeal structures - Esophageal Phase Esophageal Clearance: Esophageal retention - minimal retention of liquids in lower esophagus, no retrograde flow observed - Treatment Strategies Effects of treatment strategies attemped:: Effortful swallow = somewhat effective. Double swallow = effective. Liquid wash = somewhat effective. Cough and re-swallow = somewhat effective. - Diagnosis/Impression Diagnosis: Moderate oropharyngeal phase dysphagia (R13.12) Impression: The oral phase is primarily marked by... -Prolonged mastication abilities. Per pt's , he does not always thoroughly chew foods. He does well with breads, but has difficulty with foods like pork chops. Will recommend Easy to Chew textures. -Mild oral residue of cookie after the swallow. Liquid trial following the cookie cleared the oral residue. -Mildly delayed tongue motion for A-P transport. The pharyngeal phase is primarily marked by... -Decreased airway closure during the swallow due to decreased laryngeal elevation and anterior hyoid excursion during the swallow. -Decreased tongue base retraction, pharyngeal contraction, and UES opening/duration with resulting collections of pharyngeal residues in the vallecula and pyriforms after the swallow - especially noted with large sips, thicker viscosities, and solids. -SILENT aspiration of thin liquids via tsp during the swallow. SILENT post prandial aspiration of residue in the laryngeal vestibule on subsequent swallows (likely pudding residue). Laryngeal penetration of cup sips of thin liquids, which did not fully eject from the laryngeal vestibule on 1/4 trials. Cued cough and re-swallow did somewhat clear the laryngeal vestibule. - Recommendations Diet: Thin Liquids - Easy to Chew textures (IDDSI Level 7) Comment: Pt aspirated thin by tsp - recommended for mixed consistencies, such as soups/cereals, to strain the liquids off and eat food/drinks separately (liquids by cup). Compensatory Strategies: Small Bites, Small Sips - Intermittent cough and re-swallow during meal, No Straws - Liquids by cup only, Slow Rate, Multiple Swallows - 2 swallows per each bite and sip, Alternate bites/solids and sips/liquids, Sitting upright, Remain sitting upright for 30 minutes after PO intake Supervision: 1:1 Close Supervision - is present for all meals to assist cueing pt for strategies as needed Recommend Repeat Modified Barium Swallow: TBD - If concern for increased s/s of aspiration, will recommend repeat MBSS. Need for Skilled Speech Therapy Services: Yes Comment: Will recommend the patient for outpatient dysphagia therapy to address deficits in oropharyngeal swallow function. Will recommend the patient for oropharyngeal strengthening to improve laryngeal elevation, anterior hyoid excursion, tongue base retraction, pharyngeal contraction, and duration of UES opening (CTAR, Giselle, Rena, Effortful, Effortful breath hold and swallow). The patient would benefit from thorough education regarding diet recommendations and recommended compensatory strategies to decrease his risk for aspiration. Education Completed: 1. Described result of evaluation., 4. Family/caregivers understand evaluation & agree w/ goals & tx plan., 7. Pt requires further education on strategies & risks. - Status Active ST Patient: Active - Contact Information [facility] Speech Therapy:: Guerita Felix M.A. [facility]-POEM WRITER Speech-Language Pathologist [facility] [address] [place] [address] [email or web address] [phone] 03/07/22 15:33 03/07/22 1554 <Electronically signed by Guerita Felix M.A., CCC-POEM WRITER> Date/Time
--- NOTE | 2022-03-20 10:55 | HP.SP.EVAL ---
History - History Date of Eval: 03/17/22 Previous speech therapy: Yes Results: Pt with previous hx of a MBSS in 12/2020 with results revealing mild-moderate oropharyngeal phase dysphagia and SILENT aspiration of sequential sips of thin liquids. He was recommended for Easy to Chew textures (IDDSI Level 7), Thin Liquids and the following compensatory strategies: Sips 1 at a time, Small Bites, Small Sips, Sips by straw only, Slow Rate, Multiple Swallows - with consumption of solids, Alternate bites/solids and sips/liquids, Sitting upright, Remain sitting upright for 30 minutes after PO. He was additionally recommended to have family assist with verbal cues as needed. HE[employer] HE[employer] PRACTITIONER also recommended the patient follow-up with outpatient speech therapy. Per , the patient has not had follow-up therapy. Other Relevant Medical History/Diagnoses/Surgery: АЛЕКСАНДР GARCIA is a 86 year old male who presents to [facility] on 03/17/22 d/t concerns with swallowing. Pt accompanied by his who helped serve as historian. Pt's prior medical hx is remarkable for: Diabetes Mellitus, Pure hypercholesterolemia, Presence of stent in coronary artery, Atherosclerotic heart disease of [place] coronary artery without angina pectoris, Essential hypertension, Chronic kidney disease, Coronary atherosclerosis of [place] coronary artery, Hyperlipidemia, GERD. Per MBSS report: Александр was initially referred for a barium esophagram, but Pt was not appropriate due to hx of SILENT aspiration with sequential sips of thin liquids per MBSS 12/17/2020. The patient reports most difficulty consuming solids. He has intermittent coughing episodes to attempt clearing them. No choking history or PNA. Per his , Anum, he will sometimes cough hard after a meal is completed, as well. On September,07/29/21 the patient underwent direct laryngoscopy with esophageal dilation by Dr. Panchito Kennedy, ENT, due to cricopharyngeal hypertrophy and dysphagia. The patient feels this dilation was not effective at improving his swallow. Since his more recent MBSS on 03/07/22 Pt reports attempting to implement some of the rx aspiration precautions. Smoking Status: Never smoker Hx Smoking: No Hx Tobacco Use: No - Pain Is pain an issue with your current prescribed condition?: No Patient Allergies - Allergies Allergies clopidogrel bisulfate [From Plavix] Allergy (Verified 02/22/22 15:20) Rash cyclobenzaprine [Cyclobenzaprine] Allergy (Verified 02/22/22 15:20) Rash fluoxetine HCl [From Prozac] Allergy (Verified 02/22/22 15:20) Rash Objective Dysphagia - Recommendations Swallowing Treatment: Yes - Diet Texture Recommendations Solids: Easy to Chew (Level 7) Liquids: Thin (Level 0) - Safety Saftey Precautions/Swallowing Recommendations (Check all that Apply): 1 to 1 Distant Supervision, Reduce Distractions, Needs Verbal Cues to Use Recommended Strategies, Upright Position at Least 30 Minutes After Meals, Small Sips & Bites when Eating, No Straw, Multiple Swallows, Alternate Liquids & Solids - Results Swallowing Within Normal Limits: No Swallowing Diagnosis: Oropharyngeal Phase Dysphagia (R13.12) Severity: Moderate Modified Barium Results Hx MBS Report Entered: Yes MBS Results (from prior exam): 03/20/22 10:47 Speech Therapy by Desiree Mccoy [facility] Speech Pathology [address] [place] [address] Modified Barium Swallow Study MR#: [id number] Acct: [id number] Name: АЛЕКСАНДР GARCIA Rep #: [id number] : [id number] From: Guerita Felix M.A., [facility] Modified Barium Swallow - Patient Information Study Date: 03/07/22 Study Time: 13:00 Direct Billable Minutes: 115 Total Minutes procedure & reportin Diagnosis: Cricopharyngeal dysphagia (R13.13), GERD (K21.9) Referring Physician: Victorino Hugo Reason for Referral: Objectively assess swallow function, risk for aspiration, and determine recommendations for least restrictive diet textures and compensatory strategies to improve safety of swallow. Medical History: PMH: Diabetes Mellitus, Pure hypercholesterolemia, Presence of stent in coronary artery, Atherosclerotic heart disease of [place] coronary artery without angina pectoris, Essential hypertension, Chronic kidney disease, Coronary atherosclerosis of [place] coronary artery, Hyperlipidemia, GERD. The patient was referred for MBSS after reporting continued difficulty swallowing to his cq developer, Dr. Hugo. He was initially referred for a barium esophagram, but pt was not appropriate due to hx of SILENT aspiration with sequential sips of thin liquids per MBSS 12/17/2020. The patient reports most difficulty consuming solids. He has intermittent coughing episodes to attempt clearing them. No choking history or PNA. Per his , Anum, he will sometimes cough hard after a meal is completed, as well. 12/17/2020 MBSS completed and revealed mild-moderate oropharyngeal phase dysphagia and SILENT aspiration of sequential sips of thin liquids. He was recommended for Easy to Chew textures (IDDSI Level 7), Thin Liquids and the following compensatory strategies: Sips 1 at a time, Small Bites, Small Sips, Sips by straw only, Slow Rate, Multiple Swallows - with consumption of solids, Alternate bites/solids and sips/liquids, Sitting upright, Remain sitting upright for 30 minutes after PO. He was additionally recommended to have family assist with verbal cues as needed. HE[employer] HE[employer] PRACTITIONER also recommended the patient follow-up with outpatient speech therapy. Per , the patient has not had follow-up therapy. 07/29/21 the patient underwent direct laryngoscopy with esophageal dilation due to cricopharyngeal hypertrophy and dysphagia. The patient feels this dilation was not effective at improving his swallow. Current Diet Ordered: Regular textures / Thin liquids Dentition: Natural Teeth, Missing Teeth Mental Status: WNL - Able to follow commands for evaluation, but required repetition of recommendations and results of study Respiratory Status: Oxygenating on Room Air - Penetration-Aspiration Scale Penetration-Aspiration Scale: OBJECTIVE ASSESSMENT OF SWALLOW FUNCTION (QUANTITATIVE ? PER TRIAL): PENETRATION / ASPIRATION SCALE (MALONE): 1 = does not enter airway 2 = enters airway/above vocal folds/ejected 3 = enters airway/above vocal folds/not ejected 4 = enters airway/contacts vocal folds/ejected 5 = enters airway/contacts vocal folds/not ejected 6 = enters airway/below vocal folds/ejected 7 = enters airway/below vocal folds/not ejected despite effort 8 = enters airway/below vocal folds/no effort VIDEOFLOROSCOPIC SCALE SCORE (MALONE): Grade I = aspiration of material that has penetrated into the laryngeal vestibule, intact cough reflex Grade II = aspiration < 10 % of the bolus, intact cough reflex Grade III = aspiration of < 10 % of the bolus, reduced cough reflex or aspiration of > 10 % of the bolus, intact cough reflex Grade IV = aspiration of > 10 % of the bolus, reduced cough reflex - Penetration-Aspiration Scale Score Thin Liquid via teaspoon Result: 1= does not enter airway Thin Liquid via teaspoon Trial 2 Result: 8= enters airway/below vocal folds/no effort - Grade III = aspiration of < 10 % of the bolus, SILENT aspiration [place] Thick Liquid via small single sip from cup Result: 1= does not enter airway Pudding via teaspoon with esophageal screen Result: 1= does not enter airway Comment: Timely bolus clearance through the esophagus. 1/2 Cookie Result: 1= does not enter airway Comment: Post prandial aspiration of contrast in the laryngeal vestibule during the swallow - HEAR[employer] HE[employer] PRACTITIONER suspecting penetration of pudding thick residue after the swallow - Grade III = aspiration of < 10 % of the bolus, SILENT aspiration. Thin Liquid via sequential sips from straw Result: 1= does not enter airway Thin Liquid via large single sip from cup Result: 2= enter airway/above vocal folds/ejected Comment: HE[employer]ING HE[employer] PRACTITIONER cued cough and re-swallow after the trial to somewhat clear contrast in the laryngeal vestibule still present from previous trials. Thin Liquid via small single sip from cup Trial 2 Result: 3= enters airways/above vocal folds/not ejected Thin Liquid via small single sip from cup Effortful swallow with esophageal screen Result: 2= enter airway/above vocal folds/ejected Thin Liquid via small single sip from cup Double swallow Result: 1= does not enter airway - Oral Phase Labial Seal: No Labial Escape Tongue Control During Bolus Hold: Posterior escape of less than half of bolus Bolus Preparation/Mastication: Slow prolonged chewing/mashing with complete recollection - Pt's voiced concern that he doesn't chew certain foods thoroughly enough Bolus Transport/Lingual Motion: Delayed initiation of tongue motion Oral Residue: Residue collection on oral structures - Pharyngeal Phase Initiation of Pharyngeal Swallow: Bolus head in valleculae Soft Palate Elevation: No bolus between soft palate and pharyngeal wall Laryngeal Elevation: Partial superior movement thyroid cart/partial apprx aryt-epig petiole Anterior Hyoid Excursion: Partial anterior movement Epiglottic Movement: Complete inversion Laryngeal Vestibule Closure at Height of Swallow: Incomplete; narrow column of air/contrast in laryngeal vestibule Pharyngeal Stripping Wave: Present - diminished Pharyngoesophageal Segment Opening: Parital distension and partial duration; parital obstruction of flow Tongue Base Retraction: Wide column of contrast between tongue base & post. pharyngeal wall Pharyngeal Residue: Collection of residue within or on pharyngeal structures - Esophageal Phase Esophageal Clearance: Esophageal retention - minimal retention of liquids in lower esophagus, no retrograde flow observed - Treatment Strategies Effects of treatment strategies attemped:: Effortful swallow = somewhat effective. Double swallow = effective. Liquid wash = somewhat effective. Cough and re-swallow = somewhat effective. - Diagnosis/Impression Diagnosis: Moderate oropharyngeal phase dysphagia (R13.12) Impression: The oral phase is primarily marked by... -Prolonged mastication abilities. Per pt's , he does not always thoroughly chew foods. He does well with breads, but has difficulty with foods like pork chops. Will recommend Easy to Chew textures. -Mild oral residue of cookie after the swallow. Liquid trial following the cookie cleared the oral residue. -Mildly delayed tongue motion for A-P transport. The pharyngeal phase is primarily marked by... -Decreased airway closure during the swallow due to decreased laryngeal elevation and anterior hyoid excursion during the swallow. -Decreased tongue base retraction, pharyngeal contraction, and UES opening/duration with resulting collections of pharyngeal residues in the vallecula and pyriforms after the swallow - especially noted with large sips, thicker viscosities, and solids. -SILENT aspiration of thin liquids via tsp during the swallow. SILENT post prandial aspiration of residue in the laryngeal vestibule on subsequent swallows (likely pudding residue). Laryngeal penetration of cup sips of thin liquids, which did not fully eject from the laryngeal vestibule on 1/4 trials. Cued cough and re-swallow did somewhat clear the laryngeal vestibule. - Recommendations Diet: Thin Liquids - Easy to Chew textures (IDDSI Level 7) Comment: Pt aspirated thin by tsp - recommended for mixed consistencies, such as soups/cereals, to strain the liquids off and eat food/drinks separately (liquids by cup). Compensatory Strategies: Small Bites, Small Sips - Intermittent cough and re-swallow during meal, No Straws - Liquids by cup only, Slow Rate, Multiple Swallows - 2 swallows per each bite and sip, Alternate bites/solids and sips/liquids, Sitting upright, Remain sitting upright for 30 minutes after PO intake Supervision: 1:1 Close Supervision - is present for all meals to assist cueing pt for strategies as needed Recommend Repeat Modified Barium Swallow: TBD - If concern for increased s/s of aspiration, will recommend repeat MBSS. Need for Skilled Speech Therapy Services: Yes Comment: Will recommend the patient for outpatient dysphagia therapy to address deficits in oropharyngeal swallow function. Will recommend the patient for oropharyngeal strengthening to improve laryngeal elevation, anterior hyoid excursion, tongue base retraction, pharyngeal contraction, and duration of UES opening (CTAR, Giselle, Rena, Effortful, Effortful breath hold and swallow). The patient would benefit from thorough education regarding diet recommendations and recommended compensatory strategies to decrease his risk for aspiration. Education Completed: 1. Described result of evaluation., 4. Family/caregivers understand evaluation & agree w/ goals & tx plan., 7. Pt requires further education on strategies & risks. - Status Active ST Patient: Active - Contact Information [facility] Speech Therapy:: Guerita Felix M.A. [facility] Speech-Language Pathologist [place] [place] [address] [email or web address] [phone] 03/07/22 15:33 03/07/22 1554 <Electronically signed by Guerita Felix M.A., [facility] [employer]ACTITION[facility]> Date/Time Electronically signed by Desiree Mccoy M.S., [facility]ACT[facility] on 03/20/22 10:48 Initialized on 03/20/22 10:47 - END OF NOTE Plan - Plan Plan: Will rx Pt for skilled outpatient tx to address deficits in moderate oropharyngeal dysphagia. Pt would benefit from training and education re: process of diet tolerance checks, adherence to safe swallowing strategies and swallowing exercises to aid in oropharyngeal strengthening. Without skilled intervention, Pt is at risk for consuming a restrictive diet putting him at risk for aspiration pneumonia and atrophy of laryngeal musculature. - Recommendations Treatment Warranted: Yes Treatment Warranted: Dysphagia - Progress Prognosis: Excellent - Frequency Frequency: 1x/Week Duration: 6 Weeks - Goals that are Established Determination:: Goals will be added/modified as deemed necessary and appropriate. Therapy will be discontinued when results of re-evaluation indicate therapy is no longer needed or lack of progress has been documented. - Goal #1-5 Goal #1: Александр will demonstrate understanding of behaviors that impact safety of the swallow by charting frequency of instances of healthy intake behaviors (e.g., slow rate of intake, small bites/drinks) as they occur throughout the session/day with 90% acc independently. Goal #2: Александр will complete oropharyngeal exercises for 10 reps, 3x/day independently to improve tongue base retraction, PES opening/distention, and hyolaryngeal elevation and excursion following 3 weeks of therapy. Goal #3: Александр will complete oral motor exercises to aid in bolus manipulation, oral strengthening, and ROM for 10 reps, 2x/day with no cues following 3 weeks of therapy. Education - Patient has Indicated that the Following Identified Educational Needs: None The Patient has indicated that they have no educational or learning abilities that may effect their care.: Yes - Patient Instruction Patient Education: Diagnosis, Treatment Plan, Goals, Safety Precautions, Diet Level, Home Exercise Program Other Education: Thorough education was provided to Pt re: his most recent MBSS. Results were thoroughly reviewed while also discussing the risks of post-prandial aspiration d/t increased amounts of residue in pharyngeal space. Discussed limiting distractions such as the television while eating so that he can focus on compensatory strategies discussed today. A checklist was provided for Pt to refer to at each meal time including strategies for reducing distractions, slowing rate of intake, small bites/drinks (demo provided with spoon+applesauce), no straws, alternating bites/drinks, cough+reswallow intermittently during meal, double swallow with every bite/drink, and sitting upright for meal and for at least 30 min. afterwards. Pt and Pt's showing understanding of education and reported willingness to implement at home prior to next session. Discussed plan for swallowing exercises next session. Person Taught: Patient, Family Teaching Method: Discussion, Demonstration, Handout, Audiovisual, Protocol, Teach back Response to teaching: Return demonstration, Verbalize understanding
--- NOTE | 2022-05-30 15:52 | HP.SP.DC ---
ST Discharge Summary - Discharged: Discharge: ROSHNI GARCIA is a 87 year old male who presented to [facility] on 03/17/22 following a dx of oropharyngeal dysphagia. Pt attended initial evaluation with goals created to target oral motor strengthening, pharyngeal strengthening, and safe swallowing strategies to adhere to during meal time. After evaluation, Pt attending 4 follow up visits with Pt having a supportive and involved . Pt being on hold since March to practice home program and asked to return if having questions - did not return to therapy since that time. Pt being discharged from speech therapy caseload on this date 05/30/22 d/t Pt not returning to therapy. Thank you for allowing me to participate in the care of your patient. Will reevaluate at Pt?s request following script from physician.
== END 2022-04-07 19:00 | disposition home or self-care (01) ==
LOC: SP 10:30
PROVIDERS: PCP Family Medicine; Referring Provider Internal Medicine Gastroenterology; Visit Provider Internal Medicine Gastroenterology
DX: R13.12 Dysphagia, oropharyngeal phase (principal); K21.9 Gastro-esophageal reflux disease without esophagitis
CPT/HCPCS: 92526; 92610

== ENCOUNTER 2022-04-12 09:31 | Inpatient (IN) | payer MEDICARE, SELFPAY ==
[2022-04-12] VITALS (9 sets, daily range): BP systolic 118–149; BP diastolic 70–88; PULSE 92–110; RESP 15–18; TEMP 36.4–36.6; O2SAT 97–100; BMI 23.3; BMI 23.1
--- NOTE | 2022-04-12 09:42 | RAD_ITS ---
STUDY: X-RAY CHEST REASON FOR EXAM: Male, 86 years old. Cough TECHNIQUE: Single AP portable view of the chest. COMPARISON: Comparison is made with prior study 03/13/2021. FINDINGS: EKG electrodes are seen. Hyperinflation. The lungs are clear. There is no demonstrated pleural abnormality. Normal size heart. Normal mediastinum and félix. Normal visualized pulmonary arteries. There is atherosclerotic tortuosity of the aortic arch and descending thoracic aorta. There are diffuse degenerative changes of the visualized thoracic spine. Normal visualized ribs, clavicles, and shoulders. There is no demonstrated abnormality of the visualized soft tissue structures of the upper abdomen. RAD/Chest 1 View (Portable) IMPRESSION: Hyperinflation. The lungs are clear. Electronically Signed: Kelvin Love MD at 10:45 EDT ,
--- NOTE | 2022-04-12 09:44 | EX.ED.DYSGE1 ---
HPI History of Present Illness Chief Complaint: Weakness Informant: patient and spouse/S.O. Narrative Narrative: Patient present secondary to generalized weakness and hand infection. states that he had increasing weakness for last 3 days or so. He is not been wanting to eat or drink much. He had a temperature just over 100 a few days ago that she gave him Tylenol for. Patient was seen at PCPs office yesterday and started on Keflex for left hand infection. He states he has gout. He is not currently on steroids. states this morning he had a seizure while sitting on the commode. He reported he does have a history of seizure disorder but is not on any antiepileptics. She states that they told him his seizures are typically because of his diabetes. [facility] Medical History Ambulates with cane Atherosclerotic heart disease of [place] coronary artery without angina pectoris Brain TIA Chronic kidney disease Coronary atherosclerosis of [place] coronary artery Diabetes Dietary restriction Difficulty chewing Difficulty swallowing Essential hypertension Gastric reflux Glucosuria Gout Hematuria Hyperlipidemia Hypertension Lumbar strain PONV (postoperative nausea and vomiting) Presence of stent in coronary artery (~10/31/10) Proteinuria Pure hypercholesterolemia Seizures Sleep apnea Thyroid disease Urinary frequency Walker as ambulation aid Wears glasses Home Medications nitroglycerin 0.4 mg sublingual tablet 0.4 mg sublingual Q5M PRN Chest Pain #25 tabs 11/06/18 [Rx Last Taken Unknown] metformin 500 mg tablet 500 mg PO DAILY DIABETES 07/27/21 [History Last Taken 04/11/22] allopurinol 300 mg tablet 300 mg PO DAILY PRN GOUT 08/11/21 [History Last Taken 04/11/22] cephalexin 500 mg tablet 500 mg PO 4X/DAY 02/22/22 [History Last Taken 04/11/22] indomethacin 25 mg capsule 25 mg PO DAILY PRN ANTI INFLAMMATORY 02/22/22 [History Last Taken Unknown] acetaminophen 500 mg tablet 500 mg PO Q6H PRN Pain 04/12/22 [History Last Taken 04/11/22] levothyroxine 100 mcg tablet 100 mcg PO DAILY THYROID 04/12/22 [History Last Taken 04/11/22] metoprolol succinate 50 mg tablet,extended release 24 hr 50 mg PO DAILY BLOOD PRESSURE 04/12/22 [History Last Taken 04/11/22] pantoprazole 40 mg tablet,delayed release 40 mg PO DAILY GERD 04/12/22 [History Last Taken 04/11/22] Allergy/AdvReac Type Severity Reaction Status Date / Time clopidogrel bisulfate Allergy Rash Verified 04/12/22 09:37 [From Plavix] cyclobenzaprine Allergy Rash Verified 04/12/22 09:37 [Cyclobenzaprine] fluoxetine HCl [From Prozac] Allergy Rash Verified 04/12/22 09:37 Family History Father Diabetes Mother Diabetes Surgical History H/O percutaneous transluminal coronary angioplasty History of back surgery History of cholecystectomy History of esophageal dilatation (~07/2021) Presence of coronary angioplasty implant and graft (~10/31/10) toenail removed Social History Smoking Status: Never smoker alcohol intake: never substance use type: does not use caffeine: Yes Type: tea Number of servings: 1 what type of physical activity do you participate in: none ROS ROS ED Constitutional Constitutional ED: Reports fever(s); Denies chills Eyes Eyes: Denies change in vision or discharge from eye(s) ENT ENT ED: Denies discharge from eye(s), rhinorrhea or sore throat Cardiovascular Cardiovascular: Denies chest pain or palpitations Respiratory/Chest Respiratory/Chest: Reports cough; Denies dyspnea Gastrointestinal Gastrointestinal: Reports diarrhea; Denies abdominal pain, nausea or vomiting Genitourinary Genitourinary ED: Denies dysuria Musculoskeletal Musculoskeletal: Reports extremity pain; Denies back pain Integumentary Reports other Details: Left hand swelling and pain ; Denies Abrasions or rash Neurologic Neurologic: Reports weakness; Denies headache(s) Psychiatric Psychiatric: Denies anxiety or depression Allergic/Immunologic Allergic/Immunologic ED: Denies lip swelling or urticaria EXAM Physical Exam Const Vital Signs: 04/12/22 09:34 04/12/22 09:36 04/12/22 09:40 Temperature 97.6 F L 97.6 F L Temperature Source Temporal Temporal Pulse Rate 110 H 110 H Respiratory Rate 16 16 Respiratory Pattern Normal Blood Pressure 123/88 H 123/88 H Blood Pressure Mean 99 99 Pulse Ox 98 99 Oxygen Delivery Method Room Air Room Air 04/12/22 11:17 Temperature Temperature Source Pulse Rate 101 H Respiratory Rate 17 Respiratory Pattern Blood Pressure 143/81 H Blood Pressure Mean 101 Pulse Ox 100 Oxygen Delivery Method Room Air Positive well nourished and well developed General Appearance ED: well developed HEENT Reports normocephalic and head/scalp atraumatic Eyes PERRL and EOMs intact bilaterally Neck supple Chest Wall inspection of chest normal and palpation of chest normal Resp normal respiratory effort and clear to auscultation bilaterally Cardio regular rhythm Rate: tachycardic GI normal to inspection, nondistended, normoactive bowel sounds Palpation: soft Extremity Extremity Narrative: Mild edema and erythema to the left hand. Findings more consistent with gout than acute bacterial infection. Neuro oriented x3 and no sensory deficits noted Sensorium / Orientation: alert Psych mental status grossly normal Skin Skin Narrative: Left hand erythema as noted above. MDM MDM MDM Narrative Medical decision making narrative: Head CT, chest x-ray, lab work obtained. Sed rate and CRP obtained. COVID swab ordered. Lab Data Attestation: I reviewed the patient's lab results. Labs: Laboratory Results - last 24 hr 04/12/22 04/12/22 09:46 09:46 WBC 9.3 RBC 4.34 L Hgb 13.3 Hct 38.1 L MCV 87.8 MCH 30.6 MCHC 34.9 RDW Std Deviation 39.7 RDW Coeff of Sea 12.3 Plt Count 179 MPV 10.8 Immature Gran % (Auto) 0.500 Neut % (Auto) 62.1 Lymph % (Auto) 11.1 L [place] % (Auto) 26.0 H Eos % (Auto) 0.2 Baso % (Auto) 0.1 Absolute Neuts (auto) 5.8 Absolute Lymphs (auto) 1.03 Nucleated RBC % 0 Differential Comment SCANNED ESR 59 H Sodium 137 Potassium 4.1 Chloride 108 H Carbon Dioxide 21.0 Anion Gap 8 BUN 38 H Creatinine 2.13 H Estim Creat Clear Calc 23.64 Est GFR (MDRD) Af Amer 38 L Est GFR (MDRD) Non-Af 31 L BUN/Creatinine Ratio 17.8 Glucose 200 H Uric Acid 6.9 Calcium 9.0 C-React Prot Ext Range 158.00 H Radiography Chest X-Ray - ED: 1 View, Read by ED Physician, Chronic Changes and No Infiltrates Diagnostic Testing: Clinical Impression(s) from Imaging Studies Chest X-Ray 04/12/22 09:42 IMPRESSION: Hyperinflation. The lungs are clear. Electronically Signed: Kelvin Love MD at 10:45 EDT , Brain CT 04/12/22 10:13 IMPRESSION: Chronic involutional changes of the brain. Electronically Signed: Kelvin Love MD at 10:58 EDT , EKG Initial EKG: Attestation: I personally reviewed and interpreted this EKG as follows: Interpretation: Sinus Tachycardia (Sinus tachycardia at 108. No acute ischemia.) Treatment and Re-Evaluation Narrative: Patient had been given a dose of Solu-Medrol to help treat his gout. CBC reveals normal white count. No left shift. Chemistry studies unremarkable. CRP is 158 and sed rate is 59. Head CT shows chronic changes only. Chest x-ray per my interpretation reveals no infiltrate. COVID test is negative. On repeat evaluation patient states his pain is slightly improved. Heart rate is in the mid 90s. Due to his generalized weakness, I will speak with hospitalist regarding admission for pain control and physical therapy. Discharge Plan Triage Chief Complaint: Weakness Other Complaint: Wound ED Provider: Sara Ko Dx/Rx/DC Orders Clinical Impression: Acute gout of left hand, Weakness Prescriptions: No Action nitroglycerin 0.4 mg tablet, sublingual 0.4 mg SUBLINGUAL Q5M PRN (Reason: Chest Pain) Qty: 25 3RF allopurinol 300 mg tablet 300 mg PO DAILY PRN (Reason: GOUT) indomethacin 25 mg capsule 25 mg PO DAILY PRN (Reason: ANTI INFLAMMATORY) cephalexin 500 mg tablet 500 mg PO 4X/DAY metformin 500 mg tablet 500 mg PO DAILY acetaminophen 500 mg Tablet 500 mg PO Q6H PRN (Reason: Pain) levothyroxine 100 mcg tablet 100 mcg PO DAILY Label Comments: TAKE 1 TABLET BY MOUTH ONCE DAILY pantoprazole 40 mg tablet,delayed release (DR/EC) 40 mg PO DAILY Label Comments: TAKE 1 TABLET BY MOUTH ONCE DAILY BEFORE MORNING MEAL metoprolol succinate 50 mg tablet extended release 24 hr 50 mg PO DAILY Primary Care Provider: Mike Salas Referrals: Mike Salas MD [Primary Care Provider] - Disposition Disposition: Acute Care Hospital [facility]
[2022-04-12] MEDS: MethylPREDNISolone 125 MG/2 ML Vial 60 MG IV (09:53)
[2022-04-12] MEDS: 0.9% Normal Saline 1,000 ML 150 ML IV (09:54)
[2022-04-12 10:11] LABS: Anion Gap 8 (5-15); BUN 38 mg/dL (7-18); BUN/Creat Ratio 17.8 RATIO (10-20); Chloride 108 mmol/L (98-107); Creatinine, Serum 2.13 mg/dL (0.70-1.30); EST Glomerular Filtration Rate 31 mL/min (>60); Est Glom Filt Rate - Afr Amer 38 mL/min (>60); Estimated Creatinine Clearance 23.64 ml/min; Glucose 200 mg/dL (74-106); Potassium 4.1 mmol/L (3.5-5.1); Sodium Level 137 mmol/L (136-145); Uric Acid 6.9 mg/dL (3.5-7.2)
--- NOTE | 2022-04-12 10:13 | CT_ITS ---
STUDY: CT BRAIN WITHOUT CONTRAST REASON FOR EXAM: Male, 86 years old. Seizure RADIATION DOSAGE (If Supplied By Facility): CTDIvol = ( 44.99 ) mGy, DLP = ( 815.79 ) mGycm TECHNIQUE: Transaxial CT imaging of the brain was performed without administration of intravenous contrast material. Individualized dose optimization techniques were used for this CT. COMPARISON: Comparison is made with prior study 03/21/2021. FINDINGS: Normal soft tissue structures. Normal calvarium. There is mild cerebral atrophy with widening of the extra-axial spaces and ventricular dilatation. There are areas of decreased attenuation within the white matter tracts of the supratentorial brain, consistent with microvascular disease changes. There are small punctate calcifications of the basal ganglia which are seen in the aging brain as a normal variant. Normal brainstem. Normal cerebellum. There is no intracranial hemorrhage. There are no findings of an acute ischemic infarction. Atherosclerotic calcific plaques of the vertebral arteries and cavernous portions of the internal carotid arteries bilaterally. Normal visualized paranasal sinuses. CT/Brain/Head without Contrast IMPRESSION: Chronic involutional changes of the brain. Electronically Signed: Kelvin Love MD at 10:58 EDT ,
[2022-04-12 10:15] LABS: Absolute Lymphocyte Count 1.03 X10^3/uL (0.83-4.51); Absolute Neutrophil Count 5.8 X10^3/uL (2.0-7.7); Basophil# 0.01 X10^3/uL; Basophil% 0.1 % (0-1); Eosinophil# 0.02 X10^3/uL; Eosinophils% 0.2 % (0-5); Hematocrit 38.1 % (40-54); Hemoglobin 13.3 g/dL (13.0-16.5); Lymphocyte # 1.03 X10^3/ul (0.83-4.51); Lymphocyte % 11.1 % (19-41); Mean Corp Hgb Conc 34.9 g/dL (32-36); Mean Corpuscular Hgb 30.6 pg (27.0-32.0); Mean Corpuscular Volume 87.8 fL (80-94); Mean Platelet Vol. 10.8 fl (6.2-12.0); Monocyte# 2.42 X10^3/uL; NRBC Flagged by Analyzer 0 % (0-5); Neutrophil # 5.76 X10^3/uL (2.7-7.7); Neutrophil % 62.1 % (47-70); POSITIVE DIFFERENTIAL YES; Platelet Count 179 K/mm3 (150-450); RBC Distribution Width CV 12.3 % (11.6-14.6); RBC Distribution Width SD 39.7 fl (35.1-43.9); Red Blood Count 4.34 M/mm3 (4.6-6.2); White Blood Count 9.3 K/mm3 (4.4-11.0)
[2022-04-12 10:38] LABS: Erythrocyte Sedimentation Rate 59 mm/hr (0-20)
[2022-04-12 10:54] LABS: Differential Comment SCANNED; Differential Indicated SCAN CRITERIA MET
--- NOTE | 2022-04-12 13:09 | PCM.HP.STD ---
HPI - General General Date of Admission: 04/12/22 Date of Service: 04/12/22 Chief Complaint: Left hand pain, worsening weakness and poor PO intake HPI Narrative Mr. Walden is an 86-year-old gentleman who has a history of gout, type 2 diabetes, hypothyroidism who presented to [facility] 04/12/2022 with 1 to 2 weeks of poor p.o. intake and generalized weakness and then 3 days of left hand being significantly swollen which he and his presumed was a gout flare as he has history of chronic gout with similar flares. He went to the outpatient office and was placed on Keflex. I evaluated Mr. Walden at bedside, was not present for additional history. He reports that he is still experiencing pain. Did have a temp of 100.4 several days ago but has not had 1 since. Denies any sick contacts. Denies any falls. Does have a small erythematous spot on the tip of his left big toe who he follows with podiatry for. Denies chest pain or shortness of breath. ROS otherwise negative. [facility] Medical History Ambulates with cane Atherosclerotic heart disease of [place] coronary artery without angina pectoris Brain TIA Chronic kidney disease Coronary atherosclerosis of [place] coronary artery Diabetes Dietary restriction Difficulty chewing Difficulty swallowing Essential hypertension Gastric reflux Glucosuria Gout Hematuria Hyperlipidemia Hypertension Lumbar strain PONV (postoperative nausea and vomiting) Presence of stent in coronary artery (~10/31/10) Proteinuria Pure hypercholesterolemia Seizures Sleep apnea Thyroid disease Urinary frequency Walker as ambulation aid Wears glasses Home Medications nitroglycerin 0.4 mg sublingual tablet 0.4 mg sublingual Q5M PRN Chest Pain #25 tabs 11/06/18 [Rx Last Taken Unknown] metformin 500 mg tablet 500 mg PO DAILY DIABETES 07/27/21 [History Last Taken 04/11/22] allopurinol 300 mg tablet 300 mg PO DAILY PRN GOUT 08/11/21 [History Last Taken 04/11/22] cephalexin 500 mg tablet 500 mg PO 4X/DAY 02/22/22 [History Last Taken 04/11/22] indomethacin 25 mg capsule 25 mg PO DAILY PRN ANTI INFLAMMATORY 02/22/22 [History Last Taken Unknown] acetaminophen 500 mg tablet 500 mg PO Q6H PRN Pain 04/12/22 [History Last Taken 04/11/22] levothyroxine 100 mcg tablet 100 mcg PO DAILY THYROID 04/12/22 [History Last Taken 04/11/22] metoprolol succinate 50 mg tablet,extended release 24 hr 50 mg PO DAILY BLOOD PRESSURE 04/12/22 [History Last Taken 04/11/22] pantoprazole 40 mg tablet,delayed release 40 mg PO DAILY GERD 04/12/22 [History Last Taken 04/11/22] Allergy/AdvReac Type Severity Reaction Status Date / Time clopidogrel bisulfate Allergy Rash Verified 04/12/22 09:37 [From Plavix] cyclobenzaprine Allergy Rash Verified 04/12/22 09:37 [Cyclobenzaprine] fluoxetine HCl [From Prozac] Allergy Rash Verified 04/12/22 09:37 Family History Father Diabetes Mother Diabetes Surgical History H/O percutaneous transluminal coronary angioplasty History of back surgery History of cholecystectomy History of esophageal dilatation (~07/2021) Presence of coronary angioplasty implant and graft (~10/31/10) toenail removed Social History Smoking Status: Never smoker alcohol intake: never substance use type: does not use caffeine: Yes Type: tea Number of servings: 1 what type of physical activity do you participate in: none ROS Constitutional Constitutional: Reports other Details: And chills, one temp of 100.4 3 days ago Eyes Eyes: Denies change in vision ENT HEENT: Denies headache(s), nasal congestion or sore throat Cardiovascular Cardiovascular: Denies chest pain or palpitations Respiratory/Chest Respiratory/Chest: Denies cough or productive cough Gastrointestinal Gastrointestinal: Reports other Details: denies changes in bowel or bladder ; Denies abdominal pain Genitourinary Genitourinary: Reports other Details: denies changes in urination Musculoskeletal Musculoskeletal: Reports other Details: Left wrist/hand pain and swelling Neurologic Neurologic: Reports other Details: General weakness ; Denies dizziness, focal weakness, headache(s), numbness or tingling Psychiatric Psychiatric: Denies anxiety Hematologic/Lymphatic Hematologic/Lymphatic: Denies easy bleeding Allergic/Immunologic Allergic/Immunologic: Reports other Details: denies rashes Vital Signs Vital Signs Vital Signs: 04/12/22 09:34 04/12/22 09:36 04/12/22 09:40 Temperature 97.6 F L 97.6 F L Temperature Source Temporal Temporal Pulse Rate 110 H 110 H Respiratory Rate 16 16 Respiratory Pattern Normal Blood Pressure 123/88 H 123/88 H Blood Pressure Mean 99 99 Pulse Ox 98 99 Oxygen Delivery Method Room Air Room Air 04/12/22 11:17 04/12/22 11:29 04/12/22 12:05 Temperature 97.9 F 97.7 F L Temperature Source Temporal Temporal Pulse Rate 101 H 101 H 99 Respiratory Rate 17 17 15 Respiratory Pattern Blood Pressure 143/81 H 143/81 H 149/84 H Blood Pressure Mean 101 101 105 Pulse Ox 100 100 98 Oxygen Delivery Method Room Air Room Air Room Air Weight Weight: 69.8 kg Body Mass Index (BMI) 23.3 Physical Exam Const alert and no apparent distress HEENT normocephalic and head/scalp atraumatic Eyes Eyes Narrative: EOM grossly intact, anicteric Neck supple Resp normal respiratory effort and clear to auscultation bilaterally Cardio regular rate and regular rhythm GI soft to palpation, non-tender and non-distended Extremity Extremity Narrative: Bilateral lower extremities with trace edema, redness on tip of left toe without overt ulceration. Left hand swollen significantly and erythematous, pain on palpation with restricted motion. Does have chronic change in feet and hands as well as wrist suggestive of chronic gout/tophi Neuro moves all extremities Neuro Narrative: No overt focal deficits appreciated Psych Psych Narrative: Cooperative Results Lab / Micro Data Result Diagrams: 04/12/22 09:46 04/12/22 09:46 Labs: Laboratory Results - last 24 hr 04/12/22 09:46: WBC 9.3, RBC 4.34 L, Hgb 13.3, Hct 38.1 L, MCV 87.8, MCH 30.6, MCHC 34.9, RDW Std Deviation 39.7, RDW Coeff of Sea 12.3, Plt Count 179, MPV 10.8, Immature Gran % (Auto) 0.500, Neut % (Auto) 62.1, Lymph % (Auto) 11.1 L, [place] % (Auto) 26.0 H, Eos % (Auto) 0.2, Baso % (Auto) 0.1, Absolute Neuts (auto) 5.8, Absolute Lymphs (auto) 1.03, Nucleated RBC % 0, Differential Comment SCANNED, ESR 59 H 04/12/22 09:46: Sodium 137, Potassium 4.1, Chloride 108 H, Carbon Dioxide 21.0, Anion Gap 8, BUN 38 H, Creatinine 2.13 H, Estim Creat Clear Calc 23.64, Est GFR (MDRD) Af Amer 38 L, Est GFR (MDRD) Non-Af 31 L, BUN/Creatinine Ratio 17.8, Glucose 200 H, Uric Acid 6.9, Calcium 9.0, C-React Prot Ext Range 158.00 H Micro: Microbiology 04/12/22 09:57 Nasal Secretion SARS-CoV-2 Antigen (Rapid) - Final Radiology Impression Chest X-Ray 04/12/22 09:42 IMPRESSION: Hyperinflation. The lungs are clear. Electronically Signed: Kelvin Love MD at 10:45 EDT , Brain CT 04/12/22 10:13 IMPRESSION: Chronic involutional changes of the brain. Electronically Signed: Kelvin Love MD at 10:58 EDT , Assessment & Plan Assessment/Plan (1) Pain and swelling of left wrist: (2) Failure to thrive: PLAN: Plan 1. Left wrist swelling and pain Likely acute on chronic gout flair but given fever, elevated CRP, severe restriction in movement may warrant tap to rule out septic arthritis. 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 Failure to thrive Generalized weakness poor p.o. intake Will start fluids Consult physical therapy and Occupational Therapy 3. Hypothyroidism Continue levothyroxine Will check TSH 4. CKD stage IIIb Avoid nephrotoxic agents, will avoid indomethacin and NSAIDs 5. Hyperglycemia Last A1c in 2017 was 6 Holding metformin due to kidney function Will order A1c Will start sliding scale insulin Charges/Coding Visit Charges OBSV E&M: 89456 Initial observation care L2
--- NOTE | 2022-04-12 13:22 | RAD_ITS ---
STUDY: X-RAY - LEFT HAND REASON FOR EXAM: Male, 86 years old. Pain and swelling TECHNIQUE: 2 view(s) of the hand. COMPARISON: None. FINDINGS: There is joint space narrowing of the radiocarpal articulation consistent with degenerative arthrosis. Normal distal radioulnar joint. Chondrocalcinosis noted in the TFCC. Normal visualized carpal bones. Intracarpal arthrosis. Normal carpometacarpal articulation of the thumb. Normal second through fifth carpometacarpal joints. Normal metacarpi. Normal metacarpophalangeal joint of the thumb. There is degenerative arthrosis of the interphalangeal joint of the thumb with articular joint space narrowing. Normal proximal and distal phalanges of the thumb. Normal metacarpophalangeal joints of the second through fifth fingers. There is diffuse articular joint space narrowing of the proximal and distal interphalangeal joints of the second through fifth fingers, but without erosive changes or periarticular soft tissue swelling. Normal phalanges of the second through fifth fingers. The soft tissue structures are unremarkable. RAD/Hand 2 Views IMPRESSION: Polyarticular arthrosis, no demonstrated fracture or suspicious osseous lesion. Chondrocalcinosis noted in the TFCC. Electronically Signed: Saqib Lindsay MD at 15:12 EDT ,
--- NOTE | 2022-04-12 13:22 | RAD_ITS ---
STUDY: X-RAY - LEFT WRIST REASON FOR EXAM: Male, 86 years old. Hand and wrist swelling on L side TECHNIQUE: 2 view(s) of the wrist were obtained. COMPARISON: None. FINDINGS: Normal visualized distal radius and ulna. There is degenerative arthrosis of the radiocarpal articulation. Normal distal radioulnar articulation. Normal carpal bones. There is degenerative arthrosis of the carpal articulations. There is degenerative arthrosis of the carpometacarpal articulation of the thumb. Normal second through fifth carpometacarpal articulations. Normal visualized metacarpal bones. The soft tissue structures are unremarkable. There is no demonstrated acute fracture. RAD/Wrist 2 Views IMPRESSION: Age consistent degenerative changes, no acute findings Electronically Signed: Saqib Lindsay MD at 15:13 EDT ,
[2022-04-12] MEDS: Acetaminophen 500 MG Tablet 1000 MG PO ×2 (14:11→20:29)
[2022-04-12] MEDS: oxyCODONE 5 MG Tablet PO (14:12)
[2022-04-12] MEDS: Heparin Injection (Vial) 5,000 UNIT/ML VIAL 5000 UNIT SC ×2 (14:12→20:30)
[2022-04-12] MEDS: Senna/Docusate Sodium 1 Tablet 2 TABLET PO (14:12)
--- NOTE | 2022-04-12 16:45 | CON.PCM.OR_ITS ---
HPI Consult Data Date of Consult: 04/12/22 HPI Narrative HPI Narrative: ROSHNI GARCIA, is a 86 M who presents to [facility] after apparent presyncopal episode at home earlier today. Patient has had approximately 4 days of left hand redness, pain and swelling. Patient has a history of gout for at least 10 years. He states this has affected his fingers and wrists in the past. He notes significant stiffness in his fingers and wrists which is chronic. He was put on oral antibiotics yesterday by his primary care physician. He has not been eating or drinking well in the last few days. Denies fevers at this time or chills. Denies nausea or vomiting, chest pain or shortness of breath. FOR[facility]LY [facility] Medical History Ambulates with cane Atherosclerotic heart disease of [place] coronary artery without angina pectoris Brain TIA Chronic kidney disease Coronary atherosclerosis of [place] coronary artery Diabetes Dietary restriction Difficulty chewing Difficulty swallowing Essential hypertension Gastric reflux Glucosuria Gout Hematuria Hyperlipidemia Hypertension Lumbar strain PONV (postoperative nausea and vomiting) Presence of stent in coronary artery (~10/31/10) Proteinuria Pure hypercholesterolemia Seizures Sleep apnea Thyroid disease Urinary frequency Walker as ambulation aid Wears glasses Home Medications nitroglycerin 0.4 mg sublingual tablet 0.4 mg sublingual Q5M PRN Chest Pain #25 tabs 11/06/18 [Rx Last Taken Unknown] metformin 500 mg tablet 500 mg PO DAILY DIABETES 07/27/21 [History Last Taken 04/11/22] allopurinol 300 mg tablet 300 mg PO DAILY PRN GOUT 08/11/21 [History Last Taken 04/11/22] cephalexin 500 mg tablet 500 mg PO 4X/DAY 02/22/22 [History Last Taken 04/11/22] indomethacin 25 mg capsule 25 mg PO DAILY PRN ANTI INFLAMMATORY 02/22/22 [History Last Taken Unknown] acetaminophen 500 mg tablet 500 mg PO Q6H PRN Pain 04/12/22 [History Last Taken 04/11/22] levothyroxine 100 mcg tablet 100 mcg PO DAILY THYROID 04/12/22 [History Last Taken 04/11/22] metoprolol succinate 50 mg tablet,extended release 24 hr 50 mg PO DAILY BLOOD PRESSURE 04/12/22 [History Last Taken 04/11/22] pantoprazole 40 mg tablet,delayed release 40 mg PO DAILY GERD 04/12/22 [History Last Taken 04/11/22] Allergy/AdvReac Type Severity Reaction Status Date / Time clopidogrel bisulfate Allergy Rash Verified 04/12/22 09:37 [From Plavix] cyclobenzaprine Allergy Rash Verified 04/12/22 09:37 [Cyclobenzaprine] fluoxetine HCl [From Prozac] Allergy Rash Verified 04/12/22 09:37 Family History Father Diabetes Mother Diabetes Surgical History H/O percutaneous transluminal coronary angioplasty History of back surgery History of cholecystectomy History of esophageal dilatation (~07/2021) Presence of coronary angioplasty implant and graft (~10/31/10) toenail removed Social History Smoking Status: Never smoker alcohol intake: never substance use type: does not use caffeine: Yes Type: tea Number of servings: 1 what type of physical activity do you participate in: none ROS ROS Narrative 12 point review systems obtained, negative unless otherwise noted HPI. Vital Signs Vital Signs Vital Signs: 04/12/22 09:34 04/12/22 09:36 04/12/22 09:40 Temperature 97.6 F L 97.6 F L Temperature Source Temporal Temporal Pulse Rate 110 H 110 H Respiratory Rate 16 16 Respiratory Pattern Normal Blood Pressure 123/88 H 123/88 H Blood Pressure Mean 99 99 Blood Pressure Source Blood Pressure Position Blood Pressure Location Pulse Ox 98 99 Oxygen Delivery Method Room Air Room Air 04/12/22 11:17 04/12/22 11:29 04/12/22 12:05 Temperature 97.9 F 97.7 F L Temperature Source Temporal Temporal Pulse Rate 101 H 101 H 99 Respiratory Rate 17 17 15 Respiratory Pattern Blood Pressure 143/81 H 143/81 H 149/84 H Blood Pressure Mean 101 101 105 Blood Pressure Source Blood Pressure Position Blood Pressure Location Pulse Ox 100 100 98 Oxygen Delivery Method Room Air Room Air Room Air 04/12/22 13:18 Temperature 97.8 F Temperature Source Oral Pulse Rate 96 Respiratory Rate 18 Respiratory Pattern Blood Pressure 138/76 H Blood Pressure Mean 96 Blood Pressure Source Monitor Blood Pressure Position Semi-Fowlers Blood Pressure Location Right Arm Pulse Ox 98 Oxygen Delivery Method Room Air Weight Weight: 152 lb 8 oz Body Mass Index (BMI) 23.1 Physical Exam Narrative General -A&Ox3, NAD, appears stated age. Vital signs stable, afebrile. Respiratory -normal work of breathing, no intercostal retractions. CV -pulses regular, brisk capillary refill ?4 limbs. Abdomen-soft, nontender, nondistended. No guarding, rigidity, rebound tenderness. Musculoskeletal/neurologic -nontender right upper extremity, bilateral lower extremities. Neurologically intact. Brisk upper refill in the fingers and toes. Left hand and wrist: Erythematous rash noted over the lying the dorsum of the hand and wrist. Short arc range of motion is tolerated well in the wrist, MCPs and interphalangeal joints of the fingers and thumb. There is a palpable nodule on the flexor tendon of the long finger which is nontender. No palpable fluctuance. Pitting edema is noted. Brisk upper refill in the fingertips. Sensation intact light touch median/ulnar/radial nerve distribution of the left hand. Cardinal motions left hand are intact. Patient is unable to make a composite fist but states this is his baseline. Lab / Micro Data Result Diagrams: 04/12/22 09:46 04/12/22 09:46 Labs: Laboratory Results - last 24 hr 04/12/22 09:46: WBC 9.3, RBC 4.34 L, Hgb 13.3, Hct 38.1 L, MCV 87.8, MCH 30.6, MCHC 34.9, RDW Std Deviation 39.7, RDW Coeff of Sea 12.3, Plt Count 179, MPV 10.8, Immature Gran % (Auto) 0.500, Neut % (Auto) 62.1, Lymph % (Auto) 11.1 L, [place] % (Auto) 26.0 H, Eos % (Auto) 0.2, Baso % (Auto) 0.1, Absolute Neuts (auto) 5.8, Absolute Lymphs (auto) 1.03, Nucleated RBC % 0, Differential Comment SCANNED, ESR 59 H 04/12/22 09:46: Sodium 137, Potassium 4.1, Chloride 108 H, Carbon Dioxide 21.0, Anion Gap 8, BUN 38 H, Creatinine 2.13 H, Estim Creat Clear Calc 23.64, Est GFR (MDRD) Af Amer 38 L, Est GFR (MDRD) Non-Af 31 L, BUN/Creatinine Ratio 17.8, Glucose 200 H, Uric Acid 6.9, Calcium 9.0, C-React Prot Ext Range 158.00 H Micro: Microbiology 04/12/22 09:57 Nasal Secretion SARS-CoV-2 Antigen (Rapid) - Final Radiology Impression Chest X-Ray 04/12/22 09:42 IMPRESSION: Hyperinflation. The lungs are clear. Electronically Signed: Kelvin Love MD at 10:45 EDT , Brain CT 04/12/22 10:13 IMPRESSION: Chronic involutional changes of the brain. Electronically Signed: Kelvin Love MD at 10:58 EDT , Hand X-Ray 04/12/22 13:22 IMPRESSION: Polyarticular arthrosis, no demonstrated fracture or suspicious osseous lesion. Chondrocalcinosis noted in the TFCC. Electronically Signed: Saqib Lindsay MD at 15:12 EDT , Wrist X-Ray 04/12/22 13:22 IMPRESSION: Age consistent degenerative changes, no acute findings Electronically Signed: Saqib Lindsay MD at 15:13 EDT , Assessment & Plan Assessment/Plan (1) Cellulitis of left hand: PLAN: Exam is not consistent with acute gout flare or infectious septic arthritis. No palpable fluctuance. I recommended treating this as cellulitis of the left hand. Strict elevation recommended as well as initiating antibiotic therapy. No clear indication for aspiration as no particular joint has short arc range of motion pain. No palpable fluctuance. Plan to recheck tomorrow following antibiotic therapy. No surgery planned at this time. Thank you for this consultation. Plan of care discussed with the requesting provider.
--- NOTE | 2022-04-12 17:10 | NURSING ---
Spoke with Dr. Lindsey on phone. would like the pt to follow up in office after discharge to look at toe.
[2022-04-12] MEDS: Insulin Lispro 100 UNIT/ML INSULN.PEN SC ×2 (17:12→22:37)
[2022-04-12] MEDS: 0.9% Normal Saline 1,000 ML 75 ML IV (17:13)
[2022-04-12 17:20] LABS: Bedside Glucose 275 mg/dL (74-106)
[2022-04-12] MEDS: Ondansetron 4 MG/2 ML Vial IV (20:46)
[2022-04-12 23:00] LABS: Bedside Glucose 343 mg/dL (74-106)
[2022-04-13 03:51] VITALS: BP 105/64; PULSE 64; RESP 18; TEMP 36.3; O2SAT 100
[2022-04-13] MEDS: Acetaminophen 500 MG Tablet 1000 MG PO ×3 (05:50→21:17)
[2022-04-13] MEDS: Heparin Injection (Vial) 5,000 UNIT/ML VIAL 5000 UNIT SC ×3 (05:50→21:17)
[2022-04-13] MEDS: Levothyroxine 100 MCG Tablet PO (05:50)
[2022-04-13] MEDS: Insulin Lispro 100 UNIT/ML INSULN.PEN SC ×4 (06:01→21:17)
[2022-04-13] MEDS: 0.9% Normal Saline 1,000 ML 75 ML IV ×2 (06:03→13:56)
[2022-04-13 06:25] LABS: Bedside Glucose 253 mg/dL (74-106)
[2022-04-13 06:38] LABS: Absolute Lymphocyte Count 0.49 X10^3/uL (0.83-4.51); Absolute Neutrophil Count 3.7 X10^3/uL (2.0-7.7); Hemoglobin 10.9 g/dL (13.0-16.5); Lymphocyte # 0.49 X10^3/ul (0.83-4.51); Lymphocyte % 10.2 % (19-41); Mean Corp Hgb Conc 34.1 g/dL (32-36); Mean Corpuscular Hgb 30.2 pg (27.0-32.0); Mean Corpuscular Volume 88.6 fL (80-94); Mean Platelet Vol. 11.1 fl (6.2-12.0); Monocyte# 0.63 X10^3/uL; Monocyte% 13.2 % (0-10); NRBC Flagged by Analyzer 0 % (0-5); Neutrophil # 3.65 X10^3/uL (2.7-7.7); Neutrophil % 76.2 % (47-70); POSITIVE DIFFERENTIAL YES; Platelet Count 150 K/mm3 (150-450); RBC Distribution Width CV 12.4 % (11.6-14.6); RBC Distribution Width SD 40.5 fl (35.1-43.9); Red Blood Count 3.61 M/mm3 (4.6-6.2); White Blood Count 4.8 K/mm3 (4.4-11.0)
[2022-04-13 06:45] LABS: Differential Indicated SCAN CRITERIA MET
[2022-04-13 07:16] LABS: ALB/GLOB Ratio 0.6 RATIO (0.9-2.4); AST(SGOT) 14 U/L (15-37); Alanine Aminotransfer ALT/SGPT 14 U/L (16-61); Albumin, Serum 2.6 g/dL (3.2-5.0); Alkaline Phosphatase 75 U/L (45-117); Anion Gap 9 (5-15); BUN 55 mg/dL (7-18); BUN/Creat Ratio 22.4 RATIO (10-20); Calcium,Total 8.2 mg/dL (8.5-10.1); Chloride 109 mmol/L (98-107); Creatinine, Serum 2.46 mg/dL (0.70-1.30); EST Glomerular Filtration Rate 27 mL/min (>60); Est Glom Filt Rate - Afr Amer 32 mL/min (>60); Estimated Creatinine Clearance 20.47 ml/min; Globulin 4.2 g/dL (2.2-4.2); Glucose 282 mg/dL (74-106); Potassium 4.7 mmol/L (3.5-5.1); Protein, Total 6.8 g/dL (6.4-8.2); Sodium Level 137 mmol/L (136-145); Thyroid Stim Hormone (TSH) 0.65 uIU/mL (0.358-3.74)
[2022-04-13 08:04] LABS: Hemoglobin A1c 6.7 % (3.8-5.6)
--- NOTE | 2022-04-13 08:18 | PN.HOSP_ITS ---
Subjective Subjective DOS: 04/13/2022 CC: Left hand pain Reports hand is starting to feel better overall though does still have some pain. Denying any chest pain or shortness of breath. Working with speech, tolerating food well. No other complaints this morning Objective Data Objective Data Vital Signs: Vital Signs Temp Pulse Resp BP Pulse Ox O2 Del Method 97.4 F L 64 18 105/64 100 Room Air 04/13/22 03:51 04/13/22 03:51 04/13/22 03:51 04/13/22 03:51 04/13/22 03:51 04/13/22 06:57 Oxygen Delivery Method Room Air Weight: 70.7 kg Body Mass Index (BMI) 23.1 Intake & Output: Intake and Output for Last 24 Hours 04/11/22 04/12/22 04/13/22 23:59 23:59 23:59 Intake Total 1395.00 / 1395.00 1137.5 / 1137.5 Output Total 300 / 300 Balance 1095.00 / 1095.00 1137.5 / 1137.5 Lab / Micro Data Result Diagrams: 04/13/22 06:20 04/13/22 06:20 Labs: Laboratory Results - last 24 hr 04/12/22 09:46: WBC 9.3, RBC 4.34 L, Hgb 13.3, Hct 38.1 L, MCV 87.8, MCH 30.6, MCHC 34.9, RDW Std Deviation 39.7, RDW Coeff of Sea 12.3, Plt Count 179, MPV 10.8, Immature Gran % (Auto) 0.500, Neut % (Auto) 62.1, Lymph % (Auto) 11.1 L, [place] % (Auto) 26.0 H, Eos % (Auto) 0.2, Baso % (Auto) 0.1, Absolute Neuts (auto) 5.8, Absolute Lymphs (auto) 1.03, Nucleated RBC % 0, Differential Comment SCANNED, ESR 59 H 04/12/22 09:46: Sodium 137, Potassium 4.1, Chloride 108 H, Carbon Dioxide 21.0, Anion Gap 8, BUN 38 H, Creatinine 2.13 H, Estim Creat Clear Calc 23.64, Est GFR (MDRD) Af Amer 38 L, Est GFR (MDRD) Non-Af 31 L, BUN/Creatinine Ratio 17.8, Glucose 200 H, Uric Acid 6.9, Calcium 9.0, C-React Prot Ext Range 158.00 H 04/12/22 17:02: POC Glucose 275 H 04/12/22 22:35: POC Glucose 343 H 04/13/22 06:00: POC Glucose 253 H 04/13/22 06:20: WBC 4.8, RBC 3.61 L, Hgb 10.9 L, Hct 32.0 L, MCV 88.6, MCH 30.2, MCHC 34.1, RDW Std Deviation 40.5, RDW Coeff of Sea 12.4, Plt Count 150, MPV 11.1, Immature Gran % (Auto) 0.400, Neut % (Auto) 76.2 H, Lymph % (Auto) 10.2 L, [place] % (Auto) 13.2 H, Eos % (Auto) 0.0, Baso % (Auto) 0.0, Absolute Neuts (auto) 3.7, Absolute Lymphs (auto) 0.49 L, Nucleated RBC % 0 04/13/22 06:20: Sodium 137, Potassium 4.7, Chloride 109 H, Carbon Dioxide 19.0 L , Anion Gap 9, BUN 55 H, Creatinine 2.46 H, Estim Creat Clear Calc 20.47, Est GFR (MDRD) Af Amer 32 L, Est GFR (MDRD) Non-Af 27 L, BUN/Creatinine Ratio 22.4 H , Glucose 282 H, Calcium 8.2 L, Total Bilirubin 0.60, AST 14 L, ALT 14 L, Alkaline Phosphatase 75, C-React Prot Ext Range 183.00 H, Total Protein 6.8, Albumin 2.6 L, Globulin 4.2, Albumin/Globulin Ratio 0.6 L, TSH 0.65 04/13/22 06:20: Hemoglobin A1c 6.7 H Micro: Microbiology 04/12/22 09:57 Nasal Secretion SARS-CoV-2 Antigen (Rapid) - Final Radiography Diagnostic Testing: Radiology Impression Chest X-Ray 04/12/22 09:42 IMPRESSION: Hyperinflation. The lungs are clear. Electronically Signed: Kelvin Love MD at 10:45 EDT , Brain CT 04/12/22 10:13 IMPRESSION: Chronic involutional changes of the brain. Electronically Signed: Kelvin Love MD at 10:58 EDT , Hand X-Ray 04/12/22 13:22 IMPRESSION: Polyarticular arthrosis, no demonstrated fracture or suspicious osseous lesion. Chondrocalcinosis noted in the TF[facility]. Electronically Signed: Saqib Lindsay MD at 15:12 EDT , Wrist X-Ray 04/12/22 13:22 IMPRESSION: Age consistent degenerative changes, no acute findings Electronically Signed: Saqib Lindsay MD at 15:13 EDT , Physical Exam Const alert and no apparent distress HEENT normocephalic and head/scalp atraumatic Eyes Eyes Narrative: EOM grossly intact, anicteric Neck supple Resp normal respiratory effort and clear to auscultation bilaterally Cardio regular rate and regular rhythm GI soft to palpation, non-tender and non-distended Extremity Extremity Narrative: Left hand swelling and erythema improving, still has some difficulty with movement of his hand but suspect this is in part chronic changes though this is improving as well Neuro moves all extremities Neuro Narrative: No overt focal deficits appreciated Psych Psych Narrative: Cooperative Assessment & Plan Assessment/Plan (1) Pain and swelling of left wrist: (2) Failure to thrive: PLAN: Plan 1. Left wrist swelling and pain Did seem to have some swelling but was more concentrated in the joint and will was unclear if he may have cellulitis or if there could be underlying joint gout flare and also wanted to rule out septic arthritis Consulted Dr. Pedroza who felt it was more consistent with cellulitis than gout flare or septic arthritis Started him on IV antibiotics Giving fluids, trend CRP and labs CRP was 158, today 183 but likely multifactorial Does seem to be improving clinically #Chronic gout Given kidney function will not be placing on home colchicine, avoid NSAIDs If improving with antibiotics and felt to be more cellulitic can restart allopurinol but want to be careful not to induce flare,. He was on chronic therapy however If not improving or do seem to be component of flare will need to be treated with steroids given his comorbidities 2. Failure to thrive Generalized weakness poor p.o. intake Will start fluids Consult physical therapy and Occupational Therapy 3. Hypothyroidism Continue levothyroxine Will check TSH 4. CKD stage IIIb Avoid nephrotoxic agents, will avoid indomethacin and NSAIDs 04/13/2022: Creatinine slightly worse today, will monitor closely. Avoid nephrotoxic agents 5. Type 2 diabetes mellitus Last A1c in 2017 was 6, repeat today 6.7 Holding metformin due to kidney function Sliding scale insulin Glucose likely elevated greater than baseline given underlying process, low threshold to start long-acting insulin though suspect once acute process begins to improve that glucose will improve as well Charges/Coding Visit Charges Inpatient E&M: 68797 Subs Hosp L2
[2022-04-13 09:12] VITALS: BP 93/53; PULSE 65; RESP 12; TEMP 36.4; O2SAT 95
[2022-04-13] MEDS: Pantoprazole Sodium 40 MG Tablet PO (09:32)
[2022-04-13 09:50] VITALS: O2SAT 96
[2022-04-13 11:36] LABS: Bedside Glucose 230 mg/dL (74-106)
--- NOTE | 2022-04-13 13:05 | CASEMGMT ---
JERRY WILSON Assessment: Face to Face with pt for initial transition planning/care coordination assessment. JERRY WILSON introduced self and role at [facility], pt voices understanding and consents to assessment. Pt is A/O x4 and answers all questions appropriately at this time. Pt was up in the chair with sitting close by. Pt appears to be in no distress. Care providers, pharmacy, and demographics verified/updated. Admitting Dx: Weakness, functional decline, gout. PCP: Maritza. Specialists: [place], Cardiology; [place], Gastroenterology. [facility]. Insurance: [employer]. Prescription Benefit: yes. LW/HPOA: Pt has a LW/HPOA but it's not on file. LNOK: Anum Walden, . Living Arrangements: Pt lives his in a one store home. There are three steps to enter the home with a rail in place. Pt's assists with ADLs a little bit. Transportation: Pt doesn't drive. Pt's transports. DME/HHC/SNF: Pt has a walker, cane, and shower chair. Pt had HH therapy in the past but denied knowing the provider. Pt did outpt therapy with [facility] in the past. Pt denied any SNF stays. Pt has a glucometer and necessary supplies. Pt voiced doing speech and physical therapy exercises at home currently. Pt states no concerns with going home at time of dc. Pt states no further concerns/needs. CM to follow. Advised pt to ask CM if any further question/concerns/needs arise, voices understanding. Pt Goal: Home. Plan:?TBD. Will see how Pt progresses with therapy tomorrow.
[2022-04-13 14:01] VITALS: BP 105/62; PULSE 80; RESP 12; TEMP 36.4; O2SAT 98
--- NOTE | 2022-04-13 15:42 | CHAPLAIN ---
Type of Pastoral Visit _x__ Initial Visit ___ Follow-up Visit ___ On-call Visit ___ General Patient Visit ___ Spiritual Assessment ___ Family Conference ___ Bereavement ___ Rapid Response ___ Code Blue ___ Other (describe below) Pastoral Care Referral From _x__ Patient ___ Family ___ Nurse ___ Physician ___ Php Architect ___ [place] Headgate Operator ___ Other (describe below) Sacrament/Intervention _x__ Active listening ___ Anointing ___ Quaker ___ Bereavement ___ Communion ___ Blanche exploration ___ _x__ Life review _x__ Prayer ___ Reconciliation ___ Sacrament of Sick _x__ Supportive presence ___ Wedding ___ Other (describe below) Pastoral Comments 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
[2022-04-13 15:57] VITALS: BP 105/62; PULSE 80; RESP 12; TEMP 36.4; O2SAT 98
--- NOTE | 2022-04-13 16:17 | PN.ORTHO_ITS ---
Subjective Subjective Patient seen and examined. Left hand pain is improving. Denies fevers, chills, nausea vomiting, chest pain or shortness of breath. Objective Data Objective Data Vital Signs: Vital Signs Temp Pulse Resp BP Pulse Ox O2 Del Method 97.5 F L 80 12 105/62 98 Room Air 04/13/22 15:57 04/13/22 15:57 04/13/22 15:57 04/13/22 15:57 04/13/22 15:57 04/13/22 15:57 Oxygen Delivery Method Room Air Weight: 155 lb 13.869 oz Body Mass Index (BMI) 23.1 Intake & Output: Intake and Output for Last 24 Hours 04/11/22 04/12/22 04/13/22 23:59 23:59 23:59 Intake Total 1395.00 / 1395.00 2900.0 / 2900.0 Output Total 300 / 300 Balance 1095.00 / 1095.00 2900.0 / 2900.0 Lab / Micro Data Result Diagrams: 04/13/22 06:20 04/13/22 06:20 Labs: Laboratory Results - last 24 hr 04/12/22 17:02: POC Glucose 275 H 04/12/22 22:35: POC Glucose 343 H 04/13/22 06:00: POC Glucose 253 H 04/13/22 06:20: WBC 4.8, RBC 3.61 L, Hgb 10.9 L, Hct 32.0 L, MCV 88.6, MCH 30.2, MCHC 34.1, RDW Std Deviation 40.5, RDW Coeff of Sea 12.4, Plt Count 150, MPV 11.1, Immature Gran % (Auto) 0.400, Neut % (Auto) 76.2 H, Lymph % (Auto) 10.2 L, [place] % (Auto) 13.2 H, Eos % (Auto) 0.0, Baso % (Auto) 0.0, Absolute Neuts (auto) 3.7, Absolute Lymphs (auto) 0.49 L, Nucleated RBC % 0 04/13/22 06:20: Sodium 137, Potassium 4.7, Chloride 109 H, Carbon Dioxide 19.0 L , Anion Gap 9, BUN 55 H, Creatinine 2.46 H, Estim Creat Clear Calc 20.47, Est GFR (MDRD) Af Amer 32 L, Est GFR (MDRD) Non-Af 27 L, BUN/Creatinine Ratio 22.4 H , Glucose 282 H, Calcium 8.2 L, Total Bilirubin 0.60, AST 14 L, ALT 14 L, Alk amanda Phosphatase 75, C-React Prot Ext Range 183.00 H, Total Protein 6.8, Albumin 2.6 L, Globulin 4.2, Albumin/Globulin Ratio 0.6 L, TSH 0.65 04/13/22 06:20: Hemoglobin A1c 6.7 H 04/13/22 11:14: POC Glucose 230 H Micro: Microbiology 04/12/22 09:57 Nasal Secretion SARS-CoV-2 Antigen (Rapid) - Final Physical Exam Narrative General -A&Ox3, NAD, appears stated age. Vital signs stable, afebrile. Respiratory -normal work of breathing, no intercostal retractions. CV -pulses regular, brisk capillary refill ?4 limbs. Abdomen-soft, nontender, nondistended. No guarding, rigidity, rebound tendern ess. Musculoskeletal/neurologic -nontender right upper extremity, bilateral lower extremities. Neurologically intact. Brisk upper refill in the fingers and toes. Left hand and wrist: Erythematous rash noted over the lying the dorsum of the hand and wrist, immensely improved from yesterday with only faint redness noted. Short arc range of motion is tolerated well in the wrist, MCPs and interpha langeal joints of the fingers and thumb. There is a palpable nodule on the flexor tendon of the long finger which is nontender. No palpable fluctuance. Pitting edema is noted, improved from yesterday. Brisk upper refill in the fingertips. Sensation intact light touch median/ulnar/radial nerve distribution of the left hand. Cardinal motions left hand are intact. Patient is unable to make a composite fist but states this is his baseline. Assessment & Plan Assessment/Plan (1) Cellulitis of left hand: PLAN: Patient seen and examined. Cellulitis improving with elevation and IV antibiotics. Continue antibiotics per primary. No planned surgical intervention. I will sign off at this time. Please do not hesitate to call if any questions or concerns arise. Patient may follow-up with me as needed in the outpatient setting. Thank you for this consultation.
[2022-04-13 17:05] LABS: Bedside Glucose 234 mg/dL (74-106)
[2022-04-13 20:35] VITALS: BP 117/61; PULSE 72; RESP 16; TEMP 36.4; O2SAT 98
[2022-04-13 21:45] LABS: Bedside Glucose 263 mg/dL (74-106)
[2022-04-14] VITALS (7 sets, daily range): BP systolic 104–129; BP diastolic 62–76; PULSE 65–80; RESP 16–18; TEMP 36.4–36.6; O2SAT 97–99
[2022-04-14] MEDS: Senna/Docusate Sodium 1 Tablet 2 TABLET PO (00:17)
[2022-04-14] MEDS: 0.9% Normal Saline 1,000 ML 75 ML IV (01:06)
[2022-04-14] MEDS: Heparin Injection (Vial) 5,000 UNIT/ML VIAL 5000 UNIT SC ×3 (05:59→22:12)
[2022-04-14] MEDS: Acetaminophen 500 MG Tablet 1000 MG PO ×3 (05:59→22:18)
[2022-04-14] MEDS: Levothyroxine 100 MCG Tablet PO (05:59)
[2022-04-14] MEDS: Insulin Lispro 100 UNIT/ML INSULN.PEN SC ×4 (06:04→22:15)
[2022-04-14 06:40] LABS: Bedside Glucose 202 mg/dL (74-106)
[2022-04-14 07:13] LABS: Absolute Lymphocyte Count 0.67 X10^3/uL (0.83-4.51); Absolute Neutrophil Count 7.5 X10^3/uL (2.0-7.7); Basophil# 0.01 X10^3/uL; Basophil% 0.1 % (0-1); Hematocrit 31.3 % (40-54); Hemoglobin 10.8 g/dL (13.0-16.5); Lymphocyte # 0.67 X10^3/ul (0.83-4.51); Lymphocyte % 7.3 % (19-41); Mean Corp Hgb Conc 34.5 g/dL (32-36); Mean Corpuscular Hgb 30.3 pg (27.0-32.0); Mean Corpuscular Volume 87.9 fL (80-94); Mean Platelet Vol. 11.1 fl (6.2-12.0); Monocyte# 0.81 X10^3/uL; Monocyte% 8.8 % (0-10); NRBC Flagged by Analyzer 0 % (0-5); Neutrophil # 7.53 X10^3/uL (2.7-7.7); Neutrophil % 81.5 % (47-70); Platelet Count 162 K/mm3 (150-450); RBC Distribution Width CV 12.9 % (11.6-14.6); RBC Distribution Width SD 41.9 fl (35.1-43.9); Red Blood Count 3.56 M/mm3 (4.6-6.2); White Blood Count 9.2 K/mm3 (4.4-11.0)
[2022-04-14 07:43] LABS: Anion Gap 12 (5-15); BUN 69 mg/dL (7-18); BUN/Creat Ratio 22.6 RATIO (10-20); Calcium,Total 7.9 mg/dL (8.5-10.1); Chloride 106 mmol/L (98-107); Creatinine, Serum 3.05 mg/dL (0.70-1.30); EST Glomerular Filtration Rate 21 mL/min (>60); Est Glom Filt Rate - Afr Amer 25 mL/min (>60); Estimated Creatinine Clearance 16.51 ml/min; Glucose 219 mg/dL (74-106); Potassium 4.3 mmol/L (3.5-5.1); Sodium Level 137 mmol/L (136-145)
[2022-04-14] MEDS: Metoprolol(XL)Succ 50 MG Tablet PO (08:02)
[2022-04-14] MEDS: Pantoprazole Sodium 40 MG Tablet PO (08:03)
--- NOTE | 2022-04-14 09:10 | PN.HOSP_ITS ---
Subjective Subjective DOS: 04/14/2022 CC: Left hand pain Reports he is feeling better overall but continues to have pain in his left hand. Notes some decrease in mobility still as well compared to baseline. No chest pain or shortness of breath. Urinating often, notes no bowel movement since presentation. Denies other concerns today Objective Data Objective Data Vital Signs: Vital Signs Temp Pulse Resp BP Pulse Ox O2 Del Method 97.7 F L 73 16 118/76 97 Room Air 04/14/22 02:10 04/14/22 08:02 04/14/22 02:10 04/14/22 02:10 04/14/22 02:10 04/14/22 02:10 Oxygen Delivery Method Room Air Weight: 70.789 kg Body Mass Index (BMI) 23.1 Intake & Output: Intake and Output for Last 24 Hours 04/12/22 04/13/22 04/14/22 23:59 23:59 23:59 Intake Total 1395.00 / 1395.00 3586.25 / 3586.25 711.25 / 711.25 Output Total 300 / 300 250 / 250 Balance 1095.00 / 1095.00 3586.25 / 3586.25 461.25 / 461.25 Lab / Micro Data Result Diagrams: 04/14/22 06:40 04/14/22 06:50 Labs: Laboratory Results - last 24 hr 04/13/22 11:14: POC Glucose 230 H 04/13/22 16:39: POC Glucose 234 H 04/13/22 21:16: POC Glucose 263 H 04/14/22 06:03: POC Glucose 202 H 04/14/22 06:40: WBC 9.2, RBC 3.56 L, Hgb 10.8 L, Hct 31.3 L, MCV 87.9, MCH 30.3, MCHC 34.5, RDW Std Deviation 41.9, RDW Coeff of Sea 12.9, Plt Count 162, MPV 11.1, Immature Gran % (Auto) 2.300 H, Neut % (Auto) 81.5 H, Lymph % (Auto) 7.3 L , [place] % (Auto) 8.8, Eos % (Auto) 0.0, Baso % (Auto) 0.1, Absolute Neuts (auto) 7.5, Absolute Lymphs (auto) 0.67 L, Nucleated RBC % 0 04/14/22 06:50: Sodium 137, Potassium 4.3, Chloride 106, Carbon Dioxide 19.0 L, Anion Gap 12, BUN 69 H, Creatinine 3.05 H, Estim Creat Clear Calc 16.51, Est GFR (MDRD) Af Amer 25 L, Est GFR (MDRD) Non-Af 21 L, BUN/Creatinine Ratio 22.6 H, Glucose 219 H, Calcium 7.9 L, C-React Prot Ext Range 118.00 H Micro: Microbiology 04/12/22 09:57 Nasal Secretion SARS-CoV-2 Antigen (Rapid) - Final Physical Exam Const alert and no apparent distress HEENT normocephalic and head/scalp atraumatic Eyes Eyes Narrative: EOM grossly intact, anicteric Neck supple Resp normal respiratory effort and clear to auscultation bilaterally Cardio regular rate and regular rhythm GI soft to palpation, non-tender and non-distended Extremity Extremity Narrative: Left hand swelling and erythema continuing to improve, still has some difficulty with movement of his hand but suspect this is in part chronic changes though this is improving as well Neuro moves all extremities Neuro Narrative: No overt focal deficits appreciated Psych Psych Narrative: Cooperative Assessment & Plan Assessment/Plan (1) Pain and swelling of left wrist: (2) Failure to thrive: PLAN: Plan 1. Left wrist swelling and pain Did seem to have some swelling but was more concentrated in the joint and will was unclear if he may have cellulitis or if there could be underlying joint gout flare and also wanted to rule out septic arthritis Consulted Dr. Pedroza who felt it was more consistent with cellulitis than gout flare or septic arthritis Started him on IV antibiotics Giving fluids, trend CRP and labs CRP was 158, today 183 but likely multifactorial Does seem to be improving clinically 04/14/2022: Improving clinically on IV antibiotics, orthopedics signed off. Possible transition to p.o. tomorrow with discharge over the weekend. CRP improving #Chronic gout Given kidney function will not be placing on home colchicine, avoid NSAIDs If improving with antibiotics and felt to be more cellulitic can restart allopurinol but want to be careful not to induce flare,. He was on chronic therapy however If not improving or do seem to be component of flare will need to be treated with steroids given his comorbidities 2. Failure to thrive Generalized weakness poor p.o. intake Will start fluids Consult physical therapy and Occupational Therapy?most recent evaluation felt he could go home with help 3. Hypothyroidism Continue levothyroxine Will check TSH 4. CKD stage IIIb Avoid nephrotoxic agents, will avoid indomethacin and NSAIDs 04/13/2022: Creatinine slightly worse today, will monitor closely. Avoid nephrotoxic agents 04/14/2022: Creatinine is worsening, unclear etiology. Trend BMP, will order Mercedez, additionally patient reports frequent urination and no bowel movement will obtain postvoid bladder scan as well as retroperitoneal ultrasound to assess for any kind of hydronephrosis 5. Type 2 diabetes mellitus Last A1c in 2017 was 6, repeat today 6.7 Holding metformin due to kidney function Sliding scale insulin Glucose likely elevated greater than baseline given underlying process, low threshold to start long-acting insulin though suspect once acute process begins to improve that glucose will improve as well Charges/Coding Visit Charges Inpatient E&M: 84615 Subs Hosp L2
--- NOTE | 2022-04-14 10:33 | US_ITS ---
STUDY: RENAL ULTRASOUND - COMPLETE REASON FOR EXAM: Male, 86 years old. Worsening renal function. TECHNIQUE: Ultrasound evaluation of the kidneys was performed with real-time and static stout-scale imaging. COMPARISON: CT of the abdomen and pelvis, August 12, 2018. FINDINGS: RIGHT KIDNEY: Normal location of the right kidney, which is normal in size. The right kidney measures 10.6 cm. Increased renal cortical echogenicity. The renal cortex measures 1.5 cm. There are multiple right renal cysts. In the upper pole there is a 3.4 x 2.9 x 3.6 cm simple cyst. In the lower pole there is both a 1.7 x 1.6 x 1.1 cm simple cyst as well as a 1.9 x 1.8 x 1.4 cm simple cyst. There are no right renal calculi. There is no right hydronephrosis. DISTAL RIGHT URETER: There is non-visualization of the distal right ureter. There is no demonstrated right ureterovesical junction calculus. There is a visualized right ureteral jet. LEFT KIDNEY: Normal location of the left kidney, which is normal in size. The left kidney measures 10.2 cm. There is a normal cortex of the left kidney. The renal cortex measures 1.4 cm. There is a 2.6 x 2.6 x 1.9 cm simple cyst in the upper pole. A smaller simple cyst is seen in the lower pole measuring 1.3 x 1.0 x 0.8 cm. There are no left renal calculi. There is no left hydronephrosis. DISTAL LEFT URETER: There is non-visualization of the distal left ureter. There is no demonstrated left ureterovesical junction calculus. There is no demonstrated left ureteral jet. BLADDER: The distended urinary bladder has a volume of 20 ml. There is a normal wall thickness of the distended urinary bladder. There is no demonstrated mass within the urinary bladder. There are no demonstrated bladder calculi. US/Kidney and Bladder IMPRESSION: 1. Bilateral simple renal cysts. These require no follow-up. 2. Increased cortical echogenicity in the right kidney. Question medical renal disease. 3. Poorly distended but otherwise grossly normal urinary bladder. Electronically Signed: Aj Olvera DO at 16:57 EDT Reading Location ID and State: [address] [place] [address] Tel [phone], Service support ,
[2022-04-14] MEDS: Polyethylene Glycol 3350 17 GM PACKET PO (11:21)
[2022-04-14 11:45] LABS: Bedside Glucose 279 mg/dL (74-106)
[2022-04-14 13:09] LABS: Urine Chloride 30 mmol/L (Not Establ.); Urine Sodium 51 mmol/L (Not Establ.)
[2022-04-14 13:17] LABS: Osmolality, Urine 461 mOsm/KG
--- NOTE | 2022-04-14 13:52 | CASEMGMT ---
Pt ambulating in halls with therapy, discussed pt plan of completing exercises he already has at home with therapist. Plan: DC home with support.
[2022-04-14] MEDS: 0.9% Saline Lock 10 ML Syringe IV (14:40)
[2022-04-14 16:50] LABS: Bedside Glucose 190 mg/dL (74-106)
[2022-04-14 22:40] LABS: Bedside Glucose 184 mg/dL (74-106)
[2022-04-14] MEDS: MELATONIN 3 MG TABLET PO (23:08)
[2022-04-15 03:32] VITALS: BP 111/67; PULSE 72; RESP 18; TEMP 36.6; O2SAT 98
[2022-04-15 03:33] VITALS: BP 111/67; PULSE 72; RESP 18; TEMP 36.6; O2SAT 98
[2022-04-15 06:39] LABS: Hematocrit 31.8 % (40-54); Hemoglobin 10.7 g/dL (13.0-16.5); Mean Corp Hgb Conc 33.6 g/dL (32-36); Mean Corpuscular Hgb 29.6 pg (27.0-32.0); Mean Corpuscular Volume 88.1 fL (80-94); Mean Platelet Vol. 11.1 fl (6.2-12.0); POSITIVE COUNT YES; POSITIVE MORPHOLOGY YES; Platelet Count 184 K/mm3 (150-450); RBC Distribution Width CV 13.1 % (11.6-14.6); RBC Distribution Width SD 42.5 fl (35.1-43.9); Red Blood Count 3.61 M/mm3 (4.6-6.2); White Blood Count 5.8 K/mm3 (4.4-11.0)
[2022-04-15 06:47] LABS: Differential Indicated MANUAL DIFF
[2022-04-15] MEDS: Heparin Injection (Vial) 5,000 UNIT/ML VIAL 5000 UNIT SC (06:48)
[2022-04-15] MEDS: Acetaminophen 500 MG Tablet 1000 MG PO ×2 (06:50→14:06)
[2022-04-15] MEDS: Levothyroxine 100 MCG Tablet PO (06:50)
[2022-04-15 07:11] LABS: Anion Gap 7 (5-15); BUN 60 mg/dL (7-18); BUN/Creat Ratio 22.8 RATIO (10-20); Calcium,Total 8.2 mg/dL (8.5-10.1); Chloride 114 mmol/L (98-107); Creatinine, Serum 2.63 mg/dL (0.70-1.30); EST Glomerular Filtration Rate 25 mL/min (>60); Est Glom Filt Rate - Afr Amer 30 mL/min (>60); Estimated Creatinine Clearance 19.14 ml/min; Glucose 148 mg/dL (74-106); Potassium 4.4 mmol/L (3.5-5.1); Sodium Level 141 mmol/L (136-145)
[2022-04-15 07:21] LABS: Bedside Glucose 141 mg/dL (74-106)
[2022-04-15 09:26] VITALS: BP 139/85; PULSE 89; RESP 18; TEMP 36.4; O2SAT 98
[2022-04-15 09:30] VITALS: BP 139/85; PULSE 89
[2022-04-15] MEDS: Pantoprazole Sodium 40 MG Tablet PO (09:30)
[2022-04-15] MEDS: Polyethylene Glycol 3350 17 GM PACKET PO (09:30)
[2022-04-15] MEDS: Metoprolol(XL)Succ 50 MG Tablet PO (09:30)
--- NOTE | 2022-04-15 09:30 | PCM.PN.HOSP ---
Subjective Subjective DOS: 04/15/2022 CC: Hand pain Continues to improve, still some pain and limited mobility but overall feeling much better. Eating and drinking. Denies other significant complaints this morning Objective Data Objective Data Vital Signs: Vital Signs Temp Pulse Resp BP Pulse Ox O2 Del Method 97.5 F L 89 18 139/85 H 98 Room Air 04/15/22 09:26 04/15/22 09:26 04/15/22 09:26 04/15/22 09:26 04/15/22 09:26 04/15/22 09:26 Oxygen Delivery Method Room Air Weight: 70.4 kg Body Mass Index (BMI) 23.1 Intake & Output: Intake and Output for Last 24 Hours 04/13/22 04/14/22 04/15/22 23:59 23:59 23:59 Intake Total 3586.25 / 3586.25 2321.25 / 2321.25 500 / 500 Output Total 600 / 600 Balance 3586.25 / 3586.25 1721.25 / 1721.25 500 / 500 Lab / Micro Data Result Diagrams: 04/15/22 06:00 04/15/22 06:00 Labs: Laboratory Results - last 24 hr 04/14/22 11:15: POC Glucose 279 H 04/14/22 12:44: Urine Osmolality 461, Ur Random Sodium 51, Urine Creatinine 73.20, Urine Potassium 18.0, Urine Chloride 30 04/14/22 16:15: POC Glucose 190 H 04/14/22 22:14: POC Glucose 184 H 04/15/22 06:00: Sodium 141, Potassium 4.4, Chloride 114 H, Carbon Dioxide 20.0 L, Anion Gap 7, BUN 60 H, Creatinine 2.63 H, Estim Creat Clear Calc 19.14, Est GFR (MDRD) Af Amer 30 L, Est GFR (MDRD) Non-Af 25 L, BUN/Creatinine Ratio 22.8 H, Glucose 148 H, Calcium 8.2 L, C-React Prot Ext Range 74.90 H 04/15/22 06:00: WBC 5.8, RBC 3.61 L, Hgb 10.7 L, Hct 31.8 L, MCV 88.1, MCH 29.6, MCHC 33.6, RDW Std Deviation 42.5, RDW Coeff of Sea 13.1, Plt Count 184, MPV 11.1, Neut % (Auto) Not Reportable 04/15/22 06:47: POC Glucose 141 H Micro: Microbiology 04/12/22 09:46 Blood Culture (Wb) - Anticubital Right Blood Culture - Preliminary No growth in 48 hours. 04/12/22 09:57 Nasal Secretion SARS-CoV-2 Antigen (Rapid) - Final Radiography Diagnostic Testing: Radiology Impression Renal Ultrasound 04/14/22 10:33 IMPRESSION: 1. Bilateral simple renal cysts. These require no follow-up. 2. Increased cortical echogenicity in the right kidney. Question medical renal disease. 3. Poorly distended but otherwise grossly normal urinary bladder. Electronically Signed: Aj Olvera DO at 16:57 EDT Reading Location ID and State: [facility] / [place] Tel [phone], Service support , Physical Exam Const alert and no apparent distress HEENT normocephalic and head/scalp atraumatic Eyes Eyes Narrative: EOM grossly intact, anicteric Neck supple Resp normal respiratory effort and clear to auscultation bilaterally Cardio regular rate and regular rhythm GI soft to palpation, non-tender and non-distended Extremity Extremity Narrative: Left hand swelling and erythema certainly improving, still has some difficulty with movement of his hand but suspect this is in part chronic changes though this is improving as well Neuro moves all extremities Neuro Narrative: No overt focal deficits appreciated Psych Psych Narrative: Cooperative Assessment & Plan Assessment/Plan (1) Pain and swelling of left wrist: (2) Failure to thrive: PLAN: Plan 1. Left wrist swelling and pain Did seem to have some swelling but was more concentrated in the joint and will was unclear if he may have cellulitis or if there could be underlying joint gout flare and also wanted to rule out septic arthritis Consulted Dr. Pedroza who felt it was more consistent with cellulitis than gout flare or septic arthritis Started him on IV antibiotics Giving fluids, trend CRP and labs CRP was 158, today 183 but likely multifactorial Does seem to be improving clinically 04/14/2022: Improving clinically on IV antibiotics, orthopedics signed off. Possible transition to p.o. tomorrow with discharge over the weekend. CRP improving 04/15/2022: CRP continues to improve as does pain and movement, anticipate this will continue to improve with time. If still doing well later today we will consider discharge #Chronic gout Given kidney function will not be placing on home colchicine, avoid NSAIDs If improving with antibiotics and felt to be more cellulitic can restart allopurinol but want to be careful not to induce flare,. He was on chronic therapy however If not improving or do seem to be component of flare will need to be treated with steroids given his comorbidities 2. Failure to thrive Generalized weakness poor p.o. intake Will start fluids Consult physical therapy and Occupational Therapy?most recent evaluation felt he could go home with help 3. Hypothyroidism Continue levothyroxine Will check TSH 4. CKD stage IIIb Avoid nephrotoxic agents, will avoid indomethacin and NSAIDs 04/13/2022: Creatinine slightly worse today, will monitor closely. Avoid nephrotoxic agents 04/14/2022: Creatinine is worsening, unclear etiology. Trend BMP, will order Mercedez, additionally patient reports frequent urination and no bowel movement will obtain postvoid bladder scan as well as retroperitoneal ultrasound to assess for any kind of hydronephrosis 04/15: Creatinine slightly improved today, urine studies indicated intrinsic renal, kidney ultrasound queried chronic medical renal disease, simple cysts that require no follow-up. As he is improving otherwise, will discuss possible DC with outpatient blood work with PCP to continue to monitor renal function. Avoid nephrotoxic agents 5. Type 2 diabetes mellitus Last A1c in 2017 was 6, repeat today 6.7 Holding metformin due to kidney function Sliding scale insulin Glucose likely elevated greater than baseline given underlying process, low threshold to start long-acting insulin though suspect once acute process begins to improve that glucose will improve as well 04/15/2022: Glucose has been improving with improvement in infection is suspected Charges/Coding Visit Charges Inpatient E&M: 12855 Subs Hosp L2
[2022-04-15 10:35] LABS: Eosinophil 2 % (0-5); Lymphocyte 16 % (19-41); Monocyte 8 % (0-10); Myelocyte 1 % (0-0); Neutrophil-Segmented 73 % (47-70); Total Cells Counted 100 (MANUAL DIFF)
[2022-04-15 10:36] LABS: Absolute Neutrophil Count 4.2 X10^3/uL (2.0-7.7); Platelet Estimate ADEQUATE (ADEQ); Red Cell Morphology NORM C+C NORMAL (NORM C&C)
[2022-04-15 10:37] LABS: Absolute Lymphocyte Count 0.93 X10^3/uL (0.83-4.51)
[2022-04-15] MEDS: Insulin Lispro 100 UNIT/ML INSULN.PEN SC (11:31)
--- NOTE | 2022-04-15 12:12 | DCINST_ITS ---
Discharge Instructions Diet Discharge Diet: - (Modified diet per speech recommendations) Activity Discharge Activity: Return to Normal Activity Follow Up Care Test Results: Test results from this visit will be discussed in further detail at your follow- up appointment, if applicable. Discharge Plan Admission Admit Date/Time: 04/13/22 10:35 Primary Reason for Your Visit: Left hand swelling Attending Provider: Cinthya Hagen Primary Care Provider: Mike Salas Consulting Providers: Sean Lindsey ; Mauricio Pedroza Instructions Patient Instructions: Cellulitis Dc Additional Instructions / Restrictions: *Please take this with you to your next doctors appointment* ? You will need to continue antibiotics on outpatient basis, you will take dicloxacillin 500 mg 4 times a day, you can take each dose 1 hour before or 2 hours after a meal. You will take this for another 5 days. This medication specifically was chosen because it is similar to the IV medicine you were given and does not need to be adjusted with your kidneys so no matter how your kidney function fluctuates the levels will be stable. ? Recommend you obtain lab work (BMP) in 3 days to monitor your kidney function. Would advise you call your primary care physician on Sunday to schedule hospital follow-up appointment as well as order for lab work. ?It is recommended that you do not take any indomethacin, ibuprofen, or other NSAIDs given your kidney function. Also advised to hold your metformin until approved by your primary care physician to resume ?Do not take the Keflex that was prescribed to you prior to admission, the dicloxacillin will take this place ? Your antibiotic was sent to the [facility] retail pharmacy so it can be picked up prior to leaving ? Would advise Tylenol for pain control ? You can do with Dr. Lindsey with podiatry on an outpatient basis for your toenail, contact information has been provided -Please call your primary care provider's office upon discharge to schedule a hospital follow up within 1 week. -For any concerning signs or symptoms please call 911 or proceed to the nearest emergency department Discharge Orders/Prescriptions Prescriptions: New dicloxacillin 500 mg capsule 500 mg PO Q6H 5 Days Qty: 20 0RF Rx Instructions: Take 1 hour before or 2 hours after meals Continued nitroglycerin 0.4 mg tablet, sublingual 0.4 mg SUBLINGUAL Q5M PRN (Reason: Chest Pain) Qty: 25 3RF allopurinol 300 mg tablet 300 mg PO DAILY PRN (Reason: GOUT) acetaminophen 500 mg Tablet 500 mg PO Q6H PRN (Reason: Pain) levothyroxine 100 mcg tablet 100 mcg PO DAILY Label Comments: TAKE 1 TABLET BY MOUTH ONCE DAILY pantoprazole 40 mg tablet,delayed release (DR/EC) 40 mg PO DAILY Label Comments: TAKE 1 TABLET BY MOUTH ONCE DAILY BEFORE MORNING MEAL metoprolol succinate 50 mg tablet extended release 24 hr 50 mg PO DAILY Discontinued indomethacin 25 mg capsule 25 mg PO DAILY PRN (Reason: ANTI INFLAMMATORY) cephalexin 500 mg tablet 500 mg PO 4X/DAY metformin 500 mg tablet 500 mg PO DAILY Referrals / Follow Up: Sean Lindsey DPM [Med Staff - Active Staff] - (after discharge to look at great toe. ) Mike Salas MD [Primary Care Provider] - Disposition Disposition (needs filled in before D/C Order can be placed): Home, Self Care
[2022-04-15 12:16] LABS: Bedside Glucose 297 mg/dL (74-106)
--- NOTE | 2022-04-15 12:27 | PCM.DC.SUM ---
Providers Date of Admission: 04/13/22 Date of Discharge: 04/15/22 Primary Care Physician: Dr. Mike Salas MD Consultations 04/12/22 16:10 Consult: Podiatry Routine Consulting Provider: Sean Lindsey Reason for Consult: right great toenail EMERGENT Consult: No Notified: Yes Date Notified: 04/12/22 Time Notified: 16:10 Method of Notification: Text 04/12/22 16:13 Consult: Orthopedics Routine Consulting Provider: Mauricio Pedroza Reason for Consult: Red swollen L hand, septic arthritis vs gout in L 2nd mcp- ?tap EMERGENT Consult: Yes MD Notified: Yes Date Notified: 04/12/22 Time Notified: 16:13 Method of Notification: via pneumatic tool operator Reason For Visit: GENERAL WEAKNESS / POOR PO / INTRACTABLE PAIN Diagnosis Discharge Diagnosis (1) Pain and swelling of left wrist: Status: Acute Code(s): M25.532 - Pain in left wrist; M25.432 - Effusion, left wrist (2) Failure to thrive: Status: Acute Plan 1.? Left wrist swelling and pain #Chronic gout 2.? Failure to thrive 3.? Hypothyroidism 4.? CKD stage IIIb 5.? Type 2 diabetes mellitus Medications at Discharge Home Medications nitroglycerin 0.4 mg sublingual tablet 0.4 mg sublingual Q5M PRN Chest Pain #25 tabs 11/06/18 allopurinol 300 mg tablet 300 mg PO DAILY PRN GOUT 08/11/21 acetaminophen 500 mg tablet 500 mg PO Q6H PRN Pain 04/12/22 levothyroxine 100 mcg tablet 100 mcg PO DAILY THYROID 04/12/22 metoprolol succinate 50 mg tablet,extended release 24 hr 50 mg PO DAILY BLOOD PRESSURE 04/12/22 pantoprazole 40 mg tablet,delayed release 40 mg PO DAILY GERD 04/12/22 dicloxacillin 500 mg capsule 500 mg PO Q6H 5 days #20 caps 04/15/22 Hospital Course Summary of Care Provided Minutes Spent on Discharge: 35 Hospital Course: Mr. Walden is an 86-year-old gentleman who has a history of gout, type 2 diabetes, hypothyroidism who presented to [facility] 04/12/2022 with 1 to 2 weeks of poor p.o. intake and generalized weakness and then 3 days of left hand being significantly swollen which he and his presumed was a gout flare as he has history of chronic gout with similar flares.? He went to the outpatient office and was placed on Keflex. X-rays of hand obtained with no acute process. There was suspicion of gout versus infection. Consulted orthopedics to query joint aspiration, but it was felt hand swelling is more likely superficial cellulitis. Was put on IV oxacillin and did improve significantly. Given significant improvement transition to oral dicloxacillin for discharge. Additionally had decreased kidney function worse than baseline which initially worsened with unclear etiology. Fractional excretion of sodium showed intrinsic. Kidney ultrasound queried chronic medical renal disease, simple cyst that required no follow-up and was otherwise unremarkable. It did improve slightly on the day of admission. Urinating well, no complaints or indications needs further hospital admission as he is improving and can be followed up as an outpatient and monitored. Instructions provided for patient as below including need for BMP in 3 days through PCPs office: *Please take this with you to your next doctors appointment* ? You will need to continue antibiotics on outpatient basis, you will take dicloxacillin 500 mg 4 times a day, you can take each dose 1 hour before or 2 hours after a meal.? You will take this for another 5 days.? This medication specifically was chosen because it is similar to the IV medicine you were given and does not need to be adjusted with your kidneys so no matter how your kidney function fluctuates the levels will be stable. ? Recommend you obtain lab work (BMP) in 3 days to monitor your kidney function.? Would advise you call your primary care physician on Sunday to schedule hospital follow-up appointment as well as order for lab work. ?It is recommended that you do not take any indomethacin, ibuprofen, or other NSAIDs given your kidney function.? Also advised to hold your metformin until approved by your primary care physician to resume ?Do not take the Keflex that was prescribed to you prior to admission, the dicloxacillin will take this place ? Your antibiotic was sent to the [facility] retail pharmacy so it can be picked up prior to leaving ? Would advise Tylenol for pain control ? You can do with Dr. Lindsey with podiatry on an outpatient basis for your toenail, contact information has been provided -Please call your primary care provider's office upon discharge to schedule a hospital follow up within 1 week. -For any concerning signs or symptoms please call 911 or proceed to the nearest emergency department Physical Exam Const alert and no apparent distress HEENT normocephalic and head/scalp atraumatic Eyes Eyes Narrative: EOM grossly intact, anicteric Neck supple Resp normal respiratory effort and clear to auscultation bilaterally Cardio regular rate and regular rhythm GI soft to palpation, non-tender and non-distended Extremity Extremity Narrative: Left hand swelling and erythema certainly improving, still has some difficulty with movement of his hand but suspect this is in part chronic changes though this is improving as well Neuro moves all extremities Neuro Narrative: No overt focal deficits appreciated Psych Psych Narrative: Cooperative Weight / BMI Weight Weight: 70.4 kg Body Mass Index (BMI) 23.1 ABG / Lab / Microbiology Data Result Diagrams: 04/15/22 06:00 04/15/22 06:00 Laboratory: Laboratory Results - last 24 hr 04/14/22 12:44: Urine Osmolality 461, Ur Random Sodium 51, Urine Creatinine 73.20, Urine Potassium 18.0, Urine Chloride 30 04/14/22 16:15: POC Glucose 190 H 04/14/22 22:14: POC Glucose 184 H 04/15/22 06:00: Sodium 141, Potassium 4.4, Chloride 114 H, Carbon Dioxide 20.0 L, Anion Gap 7, BUN 60 H, Creatinine 2.63 H, Estim Creat Clear Calc 19.14, Est GFR (MDRD) Af Amer 30 L, Est GFR (MDRD) Non-Af 25 L, BUN/Creatinine Ratio 22.8 H, Glucose 148 H, Calcium 8.2 L, C-React Prot Ext Range 74.90 H 04/15/22 06:00: WBC 5.8, RBC 3.61 L, Hgb 10.7 L, Hct 31.8 L, MCV 88.1, MCH 29.6, MCHC 33.6, RDW Std Deviation 42.5, RDW Coeff of Sea 13.1, Plt Count 184, MPV 11.1, Neut % (Auto) Not Reportable, Absolute Neuts (auto) 4.2, Absolute Lymphs (auto) 0.93, Total Counted 100, Neutrophils % (Manual) 73 H, Lymphocytes % (Manual) 16 L, Monocytes % (Manual) 8, Eosinophils % (Manual) 2, Myelocytes % 1 H, Diff Path Review May foll, Platelet Estimate ADEQUATE, RBC Morphology NORM C+C 04/15/22 06:47: POC Glucose 141 H 04/15/22 11:30: POC Glucose 297 H Microbiology: Microbiology 04/12/22 09:46 Blood Culture (Wb) - Anticubital Right Blood Culture - Preliminary No growth in 48 hours. 04/12/22 09:57 Nasal Secretion SARS-CoV-2 Antigen (Rapid) - Final Radiography Diagnostic Testing: Radiology Impression Renal Ultrasound 04/14/22 10:33 IMPRESSION: 1. Bilateral simple renal cysts. These require no follow-up. 2. Increased cortical echogenicity in the right kidney. Question medical renal disease. 3. Poorly distended but otherwise grossly normal urinary bladder. Electronically Signed: Aj Olvera DO at 16:57 EDT Reading Location ID and State: [address] [place] [address] Tel [phone], Service support , D/C Instructions Discharge Diet: - (Modified diet per speech recommendations) Meaningful Use Info Meaningful Use Diagnoses (Choose all that apply): None applicable Discharge Plan Admission Admit Date/Time: 04/13/22 10:35 Primary Reason for Your Visit: Left hand swelling Attending Provider: Cinthya Hagen Primary Care Provider: Mike Salas Consulting Providers: Sean Lindsey ; Mauricio Pedroza Instructions Patient Instructions: Cellulitis Dc Additional Instructions / Restrictions: *Please take this with you to your next doctors appointment* ? You will need to continue antibiotics on outpatient basis, you will take dicloxacillin 500 mg 4 times a day, you can take each dose 1 hour before or 2 hours after a meal. You will take this for another 5 days. This medication specifically was chosen because it is similar to the IV medicine you were given and does not need to be adjusted with your kidneys so no matter how your kidney function fluctuates the levels will be stable. ? Recommend you obtain lab work (BMP) in 3 days to monitor your kidney function. Would advise you call your primary care physician on Sunday to schedule hospital follow-up appointment as well as order for lab work. ?It is recommended that you do not take any indomethacin, ibuprofen, or other NSAIDs given your kidney function. Also advised to hold your metformin until approved by your primary care physician to resume ?Do not take the Keflex that was prescribed to you prior to admission, the dicloxacillin will take this place ? Your antibiotic was sent to the [facility] retail pharmacy so it can be picked up prior to leaving ? Would advise Tylenol for pain control ? You can do with Dr. Lindsey with podiatry on an outpatient basis for your toenail, contact information has been provided -Please call your primary care provider's office upon discharge to schedule a hospital follow up within 1 week. -For any concerning signs or symptoms please call 911 or proceed to the nearest emergency department Discharge Orders/Prescriptions Prescriptions: New dicloxacillin 500 mg capsule 500 mg PO Q6H 5 Days Qty: 20 0RF Rx Instructions: Take 1 hour before or 2 hours after meals Continued nitroglycerin 0.4 mg tablet, sublingual 0.4 mg SUBLINGUAL Q5M PRN (Reason: Chest Pain) Qty: 25 3RF allopurinol 300 mg tablet 300 mg PO DAILY PRN (Reason: GOUT) acetaminophen 500 mg Tablet 500 mg PO Q6H PRN (Reason: Pain) levothyroxine 100 mcg tablet 100 mcg PO DAILY Label Comments: TAKE 1 TABLET BY MOUTH ONCE DAILY pantoprazole 40 mg tablet,delayed release (DR/EC) 40 mg PO DAILY Label Comments: TAKE 1 TABLET BY MOUTH ONCE DAILY BEFORE MORNING MEAL metoprolol succinate 50 mg tablet extended release 24 hr 50 mg PO DAILY Discontinued indomethacin 25 mg capsule 25 mg PO DAILY PRN (Reason: ANTI INFLAMMATORY) cephalexin 500 mg tablet 500 mg PO 4X/DAY metformin 500 mg tablet 500 mg PO DAILY Referrals / Follow Up: Sean Lindsey DPM [Med Staff - Active Staff] - (after discharge to look at great toe. ) Mike Salas MD [Primary Care Provider] - Disposition Disposition (needs filled in before D/C Order can be placed): Home, Self Care Charges/Coding Visit Charges Inpatient E&M: 09382 Disch Hosp
[2022-04-15 14:15] VITALS: BP 138/80; PULSE 88; RESP 18; O2SAT 93
[2022-04-17 12:58] LABS: Pathologist Review Reviewed
== END 2022-04-15 14:27 | disposition home or self-care (01) | DRG 603 ==
LOC: ED 11:26 → MS3 12:41
PROVIDERS: Admitting Provider Internal Medicine; Emergency Provider Emergency Medicine; PCP Family Medicine; Visit Provider Internal Medicine
DX: L03.114 Cellulitis of left upper limb (principal); N17.9 Acute kidney failure, unspecified; E11.22 Type 2 diabetes mellitus with diabetic chronic kidney disease; N18.32 Chronic kidney disease, stage 3b; E03.9 Hypothyroidism, unspecified; E78.00 Pure hypercholesterolemia, unspecified; M1A.9XX1 Chronic gout, unspecified, with tophus (tophi); I12.9 Hypertensive chronic kidney disease with stage 1 through stage 4 chronic kidney disease, or unspecified chronic kidney disease; I25.10 Atherosclerotic heart disease of native coronary artery without angina pectoris; R62.7 Adult failure to thrive; Z20.822 Contact with and (suspected) exposure to COVID-19; Z79.84 Long term (current) use of oral hypoglycemic drugs; Z79.1 Long term (current) use of non-steroidal anti-inflammatories (NSAID); Z79.2 Long term (current) use of antibiotics; Z79.890 Hormone replacement therapy; Z79.899 Other long term (current) drug therapy; Z68.23 Body mass index [BMI] 23.0-23.9, adult
CPT/HCPCS: 36415; 70450; 71045; 73100; 73120; 76770; 80048; 80053; 82436; 82570; 82962; 83036; 83935; 84133; 84300; 84443; 84550; 85025; 85652; 86140; 87040; 87811; 92526; 92610; 93005; 97110; 97116; 97162; 97166; 97530; 97535; 99251; 99285; J7030; J7050; A4216; G0463; J2405

== ENCOUNTER → 2022-04-24 | Outpatient (CLI) | payer MEDICARE, SELFPAY ==
[2022-04-24 15:51] LABS: Anion Gap 9 (5-15); BUN 19 mg/dL (7-18); BUN/Creat Ratio 9.8 RATIO (10-20); Calcium,Total 9.3 mg/dL (8.5-10.1); Chloride 103 mmol/L (98-107); Creatinine, Serum 1.93 mg/dL (0.70-1.30); EST Glomerular Filtration Rate 35 mL/min (>60); Est Glom Filt Rate - Afr Amer 43 mL/min (>60); Glucose 227 mg/dL (74-106); Potassium 4.4 mmol/L (3.5-5.1); Sodium Level 136 mmol/L (136-145)
== END | disposition home or self-care (01) ==
LOC: MFPLAB 11:51
PROVIDERS: PCP Family Medicine; Referring Provider Family Medicine; Visit Provider Family Medicine
DX: N17.9 Acute kidney failure, unspecified (principal)
CPT/HCPCS: 36415; 80048

== ENCOUNTER → 2022-05-24 | Outpatient (CLI) | payer MEDICARE, SELFPAY ==
[2022-05-24 18:25] LABS: Anion Gap 5 (5-15); BUN 38 mg/dL (7-18); BUN/Creat Ratio 17.4 RATIO (10-20); Calcium,Total 9.1 mg/dL (8.5-10.1); Chloride 107 mmol/L (98-107); Creatinine, Serum 2.18 mg/dL (0.70-1.30); EST Glomerular Filtration Rate 31 mL/min (>60); Est Glom Filt Rate - Afr Amer 37 mL/min (>60); Glucose 201 mg/dL (74-106); Potassium 4.5 mmol/L (3.5-5.1); Sodium Level 141 mmol/L (136-145); Uric Acid 4.6 mg/dL (3.5-7.2)
== END | disposition home or self-care (01) ==
LOC: MFPLAB 15:22
PROVIDERS: PCP Family Medicine; Referring Provider Family Medicine; Visit Provider Family Medicine
DX: R35.0 Frequency of micturition (principal); E11.9 Type 2 diabetes mellitus without complications; M10.9 Gout, unspecified
CPT/HCPCS: 36415; 80048; 84550

== ENCOUNTER 2022-06-05 23:01 | Emergency (ER) | payer MEDICARE, SELFPAY ==
[2022-06-05 23:04] VITALS: O2SAT 98
[2022-06-05 23:05] VITALS: PULSE 86; RESP 16; TEMP 36.6; O2SAT 99; BMI 22.8
[2022-06-06] MEDS: 0.9% Normal Saline 1,000 ML 150 ML IV (00:11)
[2022-06-06 00:15] VITALS: BP 129/81; PULSE 89; RESP 15; O2SAT 97
[2022-06-06 00:18] LABS: Mucous, Urine 0 SEEN /hpf (<or=2+); Squamous Epithelial Cells - UA 0 SEEN /hpf (0-5); White Blood Cells 0 SEEN /hpf (0-5)
[2022-06-06 00:23] LABS: Absolute Lymphocyte Count 0.61 X10^3/uL (0.83-4.51); Absolute Neutrophil Count 7.9 X10^3/uL (2.0-7.7); Basophil# 0.01 X10^3/uL; Basophil% 0.1 % (0-1); Eosinophil# 0.03 X10^3/uL; Eosinophils% 0.3 % (0-5); Hematocrit 34.7 % (40-54); Hemoglobin 11.1 g/dL (13.0-16.5); Lymphocyte # 0.61 X10^3/ul (0.83-4.51); Lymphocyte % 5.7 % (19-41); Mean Corpuscular Hgb 29.4 pg (27.0-32.0); Mean Corpuscular Volume 91.8 fL (80-94); Monocyte# 1.91 X10^3/uL; Monocyte% 17.7 % (0-10); NRBC Flagged by Analyzer 0 % (0-5); Neutrophil # 7.92 X10^3/uL (2.7-7.7); Neutrophil % 73.3 % (47-70); POSITIVE DIFFERENTIAL YES; Platelet Count 129 K/mm3 (150-450); RBC Distribution Width CV 14.2 % (11.6-14.6); RBC Distribution Width SD 47.6 fl (35.1-43.9); Red Blood Count 3.78 M/mm3 (4.6-6.2); White Blood Count 10.8 K/mm3 (4.4-11.0)
--- NOTE | 2022-06-06 00:29 | EX.ED.DYSGE1 ---
HPI History of Present Illness Chief Complaint: Syncope Informant: patient and spouse/S.O. Onset/Context/Timing Onset: Today Narrative Narrative: Patient presents with possible syncopal episode. believes he may have had a seizure. Patient reportedly was sitting in his chair watching television when he became unresponsive. states that he looked upward and began breathing very heavily. Episode lasted 1 or 2 minutes. states that he has had these episodes before but is never definitively been diagnosed with seizures and is not on any seizure medication. EMS noted blood sugar was quite elevated. When they checked his metformin that he was supposed to be taking only 10 pills have been taken out of the bottle and it was last filled in March. They state they check his blood sugars fairly normally at home and they are usually around [address] [facility] Medical History Ambulates with cane Atherosclerotic heart disease of [place] coronary artery without angina pectoris Brain TIA Chronic kidney disease Coronary atherosclerosis of [place] coronary artery Diabetes Dietary restriction Difficulty chewing Difficulty swallowing Essential hypertension Failure to thrive Gastric reflux Glucosuria Gout Hematuria Hyperlipidemia Hypertension Lumbar strain PONV (postoperative nausea and vomiting) Presence of stent in coronary artery (~10/31/10) Proteinuria Pure hypercholesterolemia Seizures Sleep apnea Thyroid disease Urinary frequency Walker as ambulation aid Weakness Wears glasses Home Medications nitroglycerin 0.4 mg sublingual tablet 0.4 mg sublingual Q5M PRN Chest Pain #25 tabs 11/06/18 [Rx Last Taken Unknown] allopurinol 300 mg tablet 300 mg PO DAILY PRN GOUT 08/11/21 [History Last Taken 04/11/22] acetaminophen 500 mg tablet 500 mg PO Q6H PRN Pain 04/12/22 [History Last Taken 04/11/22] levothyroxine 100 mcg tablet 100 mcg PO DAILY THYROID 04/12/22 [History Last Taken 04/11/22] metoprolol succinate 50 mg tablet,extended release 24 hr 50 mg PO DAILY BLOOD PRESSURE 04/12/22 [History Last Taken 04/11/22] pantoprazole 40 mg tablet,delayed release 40 mg PO DAILY GERD 04/12/22 [History Last Taken 04/11/22] dicloxacillin 500 mg capsule 500 mg PO Q6H 5 days #20 caps 04/15/22 [Rx Last Taken Unknown] Allergy/AdvReac Type Severity Reaction Status Date / Time clopidogrel bisulfate Allergy Rash Verified 06/05/22 23:31 [From Plavix] cyclobenzaprine Allergy Rash Verified 06/05/22 23:31 [Cyclobenzaprine] fluoxetine HCl [From Prozac] Allergy Rash Verified 06/05/22 23:31 Family History Father Diabetes Mother Diabetes Surgical History H/O percutaneous transluminal coronary angioplasty History of back surgery History of cholecystectomy History of esophageal dilatation (~07/2021) Presence of coronary angioplasty implant and graft (~10/31/10) toenail removed Social History Smoking Status: Never smoker alcohol intake: never substance use type: does not use caffeine: Yes Type: tea Number of servings: 1 what type of physical activity do you participate in: none ROS ROS ED Constitutional Constitutional ED: Denies chills or fever(s) Eyes Eyes: Denies change in vision or discharge from eye(s) ENT ENT ED: Denies discharge from eye(s), rhinorrhea or sore throat Cardiovascular Cardiovascular: Denies chest pain or palpitations Respiratory/Chest Respiratory/Chest: Denies cough or dyspnea Gastrointestinal Gastrointestinal: Denies abdominal pain, diarrhea, nausea or vomiting Genitourinary Genitourinary ED: Denies difficulty urinating or dysuria Musculoskeletal Musculoskeletal: Denies back pain or extremity pain Integumentary Denies Abrasions or rash Neurologic Neurologic: Denies headache(s) or weakness Psychiatric Psychiatric: Denies anxiety or depression Allergic/Immunologic Allergic/Immunologic ED: Denies lip swelling or urticaria EXAM Physical Exam Const Vital Signs: 06/05/22 23:04 06/05/22 23:05 06/05/22 23:28 Temperature 97.8 F Temperature Source Temporal Oral Pulse Rate 86 Respiratory Rate 16 Respiratory Effort Normal Respiratory Pattern Normal Blood Pressure Blood Pressure Mean Pulse Ox 98 99 Oxygen Delivery Method Room Air Room Air 06/06/22 00:15 Temperature Temperature Source Pulse Rate 89 Respiratory Rate 15 Respiratory Effort Respiratory Pattern Blood Pressure 129/81 H Blood Pressure Mean 97 Pulse Ox 97 Oxygen Delivery Method Room Air Positive well nourished and well developed General Appearance ED: well developed HEENT Reports normocephalic and head/scalp atraumatic Eyes PERRL and EOMs intact bilaterally Neck supple Chest Wall inspection of chest normal and palpation of chest normal Resp normal respiratory effort and clear to auscultation bilaterally Cardio regular rate and regular rhythm GI normal to inspection, nondistended, normoactive bowel sounds Palpation: soft Extremity Extremity Narrative: 2-3+ bilateral lower extremity edema, symmetric Neuro oriented x3 and no sensory deficits noted Sensorium / Orientation: alert Motor Exam: strength 5/5 throughout Psych mental status grossly normal Skin no rashes or lesions noted MDM MDM MDM Narrative Medical decision making narrative: Patient sent for CT scan of the head. Lab work obtained along with urinalysis. Patient given IV fluids. Lab Data Attestation: I reviewed the patient's lab results. Labs: Laboratory Results - last 24 hr 06/06/22 06/06/22 06/06/22 00:12 00:12 00:12 WBC 10.8 RBC 3.78 L Hgb 11.1 L Hct 34.7 L MCV 91.8 MCH 29.4 MCHC 32.0 RDW Std Deviation 47.6 H RDW Coeff of Sea 14.2 Plt Count 129 L MPV 12.0 Immature Gran % (Auto) 2.900 H Neut % (Auto) 73.3 H Lymph % (Auto) 5.7 L [place] % (Auto) 17.7 H Eos % (Auto) 0.3 Baso % (Auto) 0.1 Absolute Neuts (auto) 7.9 H Absolute Lymphs (auto) 0.61 L Nucleated RBC % 0 Platelet Estimate SLT DEC Sodium 134 L Potassium 4.1 Chloride 103 Carbon Dioxide 26.0 Anion Gap 5 BUN 37 H Creatinine 2.07 H Estim Creat Clear Calc 23.74 Est GFR (MDRD) Af Amer 39 L Est GFR (MDRD) Non-Af 32 L BUN/Creatinine Ratio 17.9 Glucose 350 H Calcium 8.5 Urine Color Urine Clarity Urine pH Ur Specific [place] Urine Protein Urine Glucose (UA) Urine Ketones Urine Occult Blood Urine Nitrite Urine Bilirubin Urine Urobilinogen Ur Leukocyte Esterase Urine RBC Urine WBC Ur Squamous Epith Cells Urine Bacteria Urine Mucus Acetone Level NEGATIVE 06/06/22 00:13 WBC RBC Hgb Hct MCV MCH MCHC RDW Std Deviation RDW Coeff of Sea Plt Count MPV Immature Gran % (Auto) Neut % (Auto) Lymph % (Auto) [place] % (Auto) Eos % (Auto) Baso % (Auto) Absolute Neuts (auto) Absolute Lymphs (auto) Nucleated RBC % Platelet Estimate Sodium Potassium Chloride Carbon Dioxide Anion Gap BUN Creatinine Estim Creat Clear Calc Est GFR (MDRD) Af Amer Est GFR (MDRD) Non-Af BUN/Creatinine Ratio Glucose Calcium Urine Color Yellow Urine Clarity Clear Urine pH 5.0 Ur Specific [place] 1.020 Urine Protein 500 H Urine Glucose (UA) 1000 H Urine Ketones Negative Urine Occult Blood 10 H Urine Nitrite Negative Urine Bilirubin Negative Urine Urobilinogen Normal Ur Leukocyte Esterase Negative Urine RBC 0-5 SEEN Urine WBC 0 SEEN Ur Squamous Epith Cells 0 SEEN Urine Bacteria RARE Urine Mucus 0 SEEN Acetone Level Radiography Diagnostic Testing: Clinical Impression(s) from Imaging Studies Brain CT 06/06/22 23:39 IMPRESSION: 1. No acute intracranial abnormalities. 2. Age-related changes. Electronically Signed: Jf Trevino MD at 1:09 EST , EKG Initial EKG: Attestation: I personally reviewed and interpreted this EKG as follows: Interpretation: Sinus Rhythm (Sinus 89 with no acute ischemia.) Treatment and Re-Evaluation Narrative: CBC is unremarkable. White count is normal with a hemoglobin 11.1. Chemistry studies reveal BUN of 37 and a creatinine of 2.07. This appears consistent with his baseline. Glucose is elevated at 350. Urinalysis shows glucose but no sign of acute infection. Serum acetone level is negative. CT scan of the head reveals no acute abnormalities. EKG is sinus 89 with no ischemia. Patient has had no arrhythmias noted on traffic monitor specialist. In speaking with spouse at bedside patient has had multiple similar episodes to this in the past, but states that they are random and very sporadic. She states that seems to be when his blood sugar is running high. She will be sure that he starts taking his metformin. We discussed possible observation in the hospital, however I feel that the likelihood of catching an episode in the next 24 hours is very low. would prefer to care for him at home. Return instructions are provided and they do feel comfortable with this plan. Discharge Plan Triage Chief Complaint: Syncope ED Provider: Sara Ko Dx/Rx/DC Orders Clinical Impression: Syncope, Seizure-like activity, Hyperglycemia Instructions: ED Diabetic Hyperglycemia, ED Fainting, Uncertain Cause, ED Seizure, Recurrent (Adult) Prescriptions: No Action nitroglycerin 0.4 mg tablet, sublingual 0.4 mg SUBLINGUAL Q5M PRN (Reason: Chest Pain) Qty: 25 3RF allopurinol 300 mg tablet 300 mg PO DAILY PRN (Reason: GOUT) acetaminophen 500 mg Tablet 500 mg PO Q6H PRN (Reason: Pain) levothyroxine 100 mcg tablet 100 mcg PO DAILY Label Comments: TAKE 1 TABLET BY MOUTH ONCE DAILY pantoprazole 40 mg tablet,delayed release (DR/EC) 40 mg PO DAILY Label Comments: TAKE 1 TABLET BY MOUTH ONCE DAILY BEFORE MORNING MEAL metoprolol succinate 50 mg tablet extended release 24 hr 50 mg PO DAILY dicloxacillin 500 mg capsule 500 mg PO Q6H 5 Days Qty: 20 0RF Rx Instructions: Take 1 hour before or 2 hours after meals Primary Care Provider: Mike Salas Referrals: Mike Salas MD [Primary Care Provider] - As soon as possible Disposition Disposition: Home, Self Care
[2022-06-06 00:30] LABS: Color, Urine Yellow (Yellow); Glucose, Dipstick 1000 mg/dl (Normal); Ketone-Dipstick Negative (Negative); Leukocyte Esterase-Dipstick Negative /ul (Negative); Nitrite-Dipstick Negative (Negative); Occult Blood-Urine 10 /ul (Negative); Protein-Dipstick 500 mg/dl (Negative); Urine Bilirubin Dipstick Negative (Negative); Urine Clarity Clear (Clear); Urine Urobilinogen Normal (Normal)
[2022-06-06 00:31] LABS: Differential Indicated SCAN CRITERIA MET
[2022-06-06 00:36] LABS: Anion Gap 5 (5-15); BUN 37 mg/dL (7-18); BUN/Creat Ratio 17.9 RATIO (10-20); Calcium,Total 8.5 mg/dL (8.5-10.1); Chloride 103 mmol/L (98-107); Creatinine, Serum 2.07 mg/dL (0.70-1.30); EST Glomerular Filtration Rate 32 mL/min (>60); Est Glom Filt Rate - Afr Amer 39 mL/min (>60); Estimated Creatinine Clearance 23.74 ml/min; Glucose 350 mg/dL (74-106); Potassium 4.1 mmol/L (3.5-5.1); Sodium Level 134 mmol/L (136-145)
[2022-06-06 00:49] LABS: Platelet Estimate SLT DEC (ADEQ)
[2022-06-06 00:56] LABS: Bacteria RARE /hpf (None Seen); Red Blood Cells-Urine 0-5 SEEN /hpf (0-5)
[2022-06-06 02:08] VITALS: BP 152/90; PULSE 98; RESP 12; O2SAT 97
--- NOTE | 2022-06-06 23:39 | CT_ITS ---
EXAM: CT HEAD WITHOUT INTRAVENOUS CONTRAST CLINICAL INDICATION: seizure TECHNIQUE: Multiple axial images were obtained of the head without intravenous contrast. This CT exam was performed using one or more of the following dose reduction techniques: automated exposure control, adjustment of the mA and/or kV according to patient size, and/or use of iterative reconstruction technique. This report was created using [employer] report generation technology. COMPARISON: 04/12/2022. FINDINGS: BRAIN AND EXTRA-AXIAL SPACES: Diffuse cerebral volume loss. Periventricular small vessel ischemic changes. No intra- or extra-axial hemorrhage. No intracranial mass or mass effect. Posterior fossa structures are unremarkable. No hydrocephalus. Basal cisterns are patent. BONES/JOINTS: Unremarkable. No discrete lytic or blastic abnormalities. VASCULATURE: Vascular calcifications. SINUSES: Unremarkable as visualized. Clear. MASTOID AIR CELLS: Unremarkable. Clear. ORBITS: Visualized globes, extraocular muscles, optic nerves and retrobulbar fat appear unremarkable. CT/Brain/Head without Contrast IMPRESSION: 1. No acute intracranial abnormalities. 2. Age-related changes. Electronically Signed: Jf Trevino MD at 1:09 EST ,
== END 2022-06-06 02:14 | disposition home or self-care (01) ==
PROVIDERS: Emergency Provider Emergency Medicine; PCP Family Medicine; Visit Provider Emergency Medicine
DX: R55 Syncope and collapse (principal); E11.65 Type 2 diabetes mellitus with hyperglycemia; E11.22 Type 2 diabetes mellitus with diabetic chronic kidney disease; R56.9 Unspecified convulsions; I25.10 Atherosclerotic heart disease of native coronary artery without angina pectoris; N18.9 Chronic kidney disease, unspecified; Z86.73 Personal history of transient ischemic attack (TIA), and cerebral infarction without residual deficits; Z95.5 Presence of coronary angioplasty implant and graft
CPT/HCPCS: 70450; 80048; 81001; 82009; 85025; 93005; 99285; A4216

== ENCOUNTER 2022-06-15 10:04 | Observation (INO) | payer MEDICARE, SELFPAY ==
[2022-06-15 10:05] VITALS: BP 157/76; PULSE 110; RESP 18; TEMP 36.4; O2SAT 98; BMI 25.2
--- NOTE | 2022-06-15 10:16 | RAD_ITS ---
STUDY: X-RAY CHEST REASON FOR EXAM: Male, 87 years old. Weakness TECHNIQUE: Single AP portable view of the chest. COMPARISON: Comparison is made with prior examination of 04/12/2022. FINDINGS: EKG electrodes are seen. Hyperinflation. The lungs are clear. There is no demonstrated pleural abnormality. Normal size heart. Normal mediastinum and félix. Normal visualized pulmonary arteries. There is atherosclerotic tortuosity of the aortic arch and descending thoracic aorta. There are diffuse degenerative changes of the visualized thoracic spine. There is degenerative osteoarthritis of the bilateral shoulders. There is no demonstrated abnormality of the visualized soft tissue structures of the upper abdomen. RAD/Chest 1 View (Portable) IMPRESSION: Hyperinflation. The lungs are clear. Electronically Signed: Kelvin Love MD at 11:05 EST ,
--- NOTE | 2022-06-15 10:16 | EKG12_ITS ---
Test Reason : WEAKNESS Blood Pressure : / mmHG Vent. Rate : 116 BPM Atrial Rate : 116 BPM P-R Int : 126 ms QRS Dur : 074 ms QT Int : 324 ms P-R-T Axes : 080 067 064 degrees QTc Int : 450 ms Sinus tachycardia Otherwise normal ECG Confirmed by BHARGAV DIAZ, TYRELL ([id number]), rewrite editor IAN MACARIO ([id number]) on 06/19/2022 10:31:35 AM Referred By: Confirmed By:TIRSO DURANT MD
--- NOTE | 2022-06-15 10:19 | EDS_ITS ---
HPI History of Present Illness Chief Complaint: General Illness Detail of Chief Complaint: Generalized weakness. Too weak to ambulate around his house. Informant: patient and spouse/S.O. Onset/Context/Timing Onset: Days Context: Gradual Onset Timing: Continuous Current Severity: Mild Maximum Severity: Mild Narrative Narrative: 87-year-old male history diabetes, hypertension, CAD with a stent, chronic kidney disease with a creatinine typically over 2. Lives at home with his . She states generally he has been failing and getting worse over the last week. To the point she said he can even use his walker to get around the house now. He has been complaining of arthritic pain in his hands and shoulder. Denies any falls or trauma. She said he has had decreased energy and decreased oral intake. She denies any nausea or vomiting. No fever. No chest pain or shortness of breath. He is not on any blood thinners. He was hospitalized 2 to 4 weeks ago. Prior similar symptoms: Yes Recent Illness/Hospitalization: Yes [facility] Medical History Ambulates with cane Atherosclerotic heart disease of [place] coronary artery without angina pectoris Brain TIA Chronic kidney disease Coronary atherosclerosis of [place] coronary artery Diabetes Dietary restriction Difficulty chewing Difficulty swallowing Essential hypertension Failure to thrive Gastric reflux Glucosuria Gout Hematuria Hyperlipidemia Hypertension Lumbar strain PONV (postoperative nausea and vomiting) Presence of stent in coronary artery (~10/31/10) Proteinuria Pure hypercholesterolemia Seizures Sleep apnea Thyroid disease Urinary frequency Walker as ambulation aid Weakness Wears glasses Home Medications nitroglycerin 0.4 mg sublingual tablet 0.4 mg sublingual Q5M PRN Chest Pain #25 tabs 11/06/18 [Rx Last Taken Unknown] acetaminophen 500 mg tablet 500 mg PO Q6H PRN Pain 04/12/22 [History Last Taken 06/14/22 19:30] levothyroxine 100 mcg tablet 100 mcg PO DAILY THYROID 04/12/22 [History Last Taken 06/14/22] metoprolol succinate 50 mg tablet,extended release 24 hr 50 mg PO DAILY BLOOD PRESSURE 04/12/22 [History Last Taken 06/14/22] colchicine 0.6 mg capsule 0.6 mg PO DAILY GOUT 06/15/22 [History Last Taken 06/12/22] metformin 500 mg tablet 500 mg PO DAILY 06/15/22 [History Last Taken 06/14/22] Allergy/AdvReac Type Severity Reaction Status Date / Time clopidogrel bisulfate Allergy Rash Verified 06/15/22 10:10 [From Plavix] cyclobenzaprine Allergy Rash Verified 06/15/22 10:10 [Cyclobenzaprine] fluoxetine HCl [From Prozac] Allergy Rash Verified 06/15/22 10:10 Family History Father Diabetes Mother Diabetes Surgical History H/O percutaneous transluminal coronary angioplasty History of back surgery History of cholecystectomy History of esophageal dilatation (~07/2021) Presence of coronary angioplasty implant and graft (~10/31/10) toenail removed Social History Smoking Status: Never smoker alcohol intake: never substance use type: does not use caffeine: Yes Type: tea Number of servings: 1 what type of physical activity do you participate in: none ROS ROS ED ROS Narrative Body aches. Generalized weakness and fatigue. Decreased oral intake. Review of Systems ROS Unobtainable: Denies due to encephalopathy Constitutional Constitutional ED: Denies chills or fever(s) Eyes Eyes: Denies blurry vision ENT ENT ED: Denies ear pain Cardiovascular Cardiovascular: Denies chest pain Respiratory/Chest Respiratory/Chest: Denies cough or dyspnea Gastrointestinal Gastrointestinal: Denies abdominal pain, diarrhea, nausea or vomiting Genitourinary Genitourinary ED: Denies dysuria Musculoskeletal Musculoskeletal: Denies arthralgias Integumentary Denies abscess Neurologic Neurologic: Denies headache(s) Psychiatric Psychiatric: Denies anxiety Endocrine Endocrinology: Denies cold intolerance Hematologic/Lymphatic Hematologic/Lymphatic: Reports none Allergic/Immunologic Allergic/Immunologic ED: Denies mouth swelling, tongue swelling or urticaria EXAM Physical Exam Narrative Exam Narrative: 87-year-old male vital signs are stable. He is afebrile. He does not look septic or toxic. His pulse ox is 90% on room air no hypoxia. He is in no respiratory distress. He is mildly tachycardic with a heart rate of 110 most likely from dehydration. H EENT exam mild dry mucous membranes. No facial droop. Normal speech. Pupils round reactive light. Neck nontender no JVD. No lymphadenopathy. Lungs clear to auscultation bilaterally. Heart tachycardic rate about 110. Abdomen soft nontender normal bowel sounds no peritoneal signs. Patient moving all 4 extremities. He has arthritic changes and swelling in his right hand. He has some discomfort in his right shoulder but no deformity. No signs of septic joint. He can move all 4 extremities weakly. Neurologically is awake and alert. He has no lateralizing signs. He is just generally weak. But he can move all 4 extremities. Const Vital Signs: 06/15/22 10:05 06/15/22 10:35 Temperature 97.5 F L Temperature Source Temporal Pulse Rate 110 H Respiratory Rate 18 Respiratory Effort Normal Respiratory Pattern Normal Blood Pressure 157/76 H Blood Pressure Mean 103 Pulse Ox 98 Oxygen Delivery Method Room Air Positive well nourished and well developed; Negative for obese, cachectic, contractures or unkempt General Appearance ED: well developed and NAD; Negative for unkempt, cachectic, contractures, cyanotic, diaphoretic or pallor Nutritional Appearance: Negative for cachectic or obese HEENT Reports dry mucous membranes; Denies moist mucous membranes Negative for trauma or tenderness Mouth ED: Yes dry mucous membranes Mouth: dry mucous membranes Eyes PERRL and EOMs intact bilaterally General Eye ED: Negative for pale conjunctiva or scleral icterus Neck no lymphadenopathy, supple and no JVD General: Negative for tenderness Lymph Lymphatic: Negative for other Chest Wall inspection of chest normal and palpation of chest normal Chest: Negative for other Resp normal respiratory effort and clear to auscultation bilaterally Effort and Inspection: Negative for retractions Auscultation: Negative for rales, rhonchi or wheezes Cardio regular rhythm, S1 normal heart sound, S2 normal heart sound and no murmurs; Negative for regular rate Rate: tachycardic GI normal to inspection, nondistended, normoactive bowel sounds, non-tender, non- distended and no masses Inspection: Negative for abdominal distention Auscultation: normoactive bowel sounds Palpation: soft; Negative for tender or guarding Back/Spine no CVA tenderness General Back: Negative for CVA tenderness Cervical Spine: Negative for cervical spine tenderness Thoracic Spine / Upper Back: Negative for thoracic spinal tenderness or paraspinal muscle tenderness Lumbar Spine / Lower Back: Negative for lumbar spinal tenderness Extremity Negative for normal to inspection Extremity Narrative: Right swelling secondary to arthritic changes. No cellulitis. No septic joints. General Extremety ED: Yes edema and tenderness General Extremity: edema Neuro oriented x3 Sensorium / Orientation: alert; Negative for orientation impaired Motor Exam: general weakness; Negative for strength 5/5 throughout Psych mental status grossly normal Appearance: Negative for unkempt Attitude: No agitated Mood & Affect: Negative for depressed, anxious or tearful Skin no rashes or lesions noted and no wounds General Skin Exam: Negative for jaundice or pallor Lesions: No lesion noted Rashes: No rashes noted Trauma: Negative for abrasion Wounds: Negative for wounds noted MDM MDM MDM Narrative Medical decision making narrative: 87-year-old male failure to thrive and generalized weakness. We treated with a liter normal saline clinically appears dehydrated and tachycardic. He has known history of diabetes and chronic kidney disease. Undergo screening labs. At this time I suspect he will be admitted for generalized weakness, inability to ambulate and failure to thrive. I also suspect he will be dehydrated. Repeat exam at 11:45 AM unchanged. Were attempted to ambulate the patient due to weakness is most likely go to be unable to walk. I will speak to the hospitalist about admission. We are awaiting his urinalysis results the gross urine specimen looks unremarkable. I reviewed old records on him and old labs and are basically consistent with the findings today. Spoke with hospitalist. He did not feel he had much to offer the patient with inpatient hospitalization. parks and recreation worker was consulted. Spoke with family. They want this to be done as an outpatient. Physical therapy and Occupational Therapy will be consulted for home evaluation. They are comfortable being discharged. Lab Data Attestation: I reviewed the patient's lab results. Lab results narrative: CBC shows a white count of 12.4. H&H 11.8 and 35.8. Platelets of 210. With rapid COVID and influenza were negative. Electrolytes show sodium 133. Gap of 8. BUN and creatinine at 26 and 1.95. He has baseline chronic kidney disease and this is his baseline creatinine. Liver enzymes unremarkable. Alk phos elevated at 157. Chest x-ray is negative. Urinalysis negative. Labs: Laboratory Results - last 24 hr 06/15/22 06/15/22 06/15/22 10:25 10:25 11:25 WBC 12.4 H RBC 3.99 L Hgb 11.8 L Hct 35.8 L MCV 89.7 MCH 29.6 MCHC 33.0 RDW Std Deviation 45.2 H RDW Coeff of Sea 13.7 Plt Count 210 MPV 10.5 Neut % (Auto) Not Reportable Absolute Neuts (auto) 9.3 H Absolute Lymphs (auto) 0.62 L Total Counted 100 Neutrophils % (Manual) 75 H Lymphocytes % (Manual) 5 L Monocytes % (Manual) 20 H Diff Path Review May foll Platelet Estimate ADEQUATE RBC Morphology NORM C+C Sodium 133 L Potassium 4.2 Chloride 101 Carbon Dioxide 24.0 Anion Gap 8 BUN 26 H Creatinine 1.95 H Estim Creat Clear Calc 23.63 Est GFR (MDRD) Af Amer 42 L Est GFR (MDRD) Non-Af 35 L BUN/Creatinine Ratio 13.3 Glucose 311 H Calcium 8.8 Total Bilirubin 1.00 AST 16 ALT 17 Alkaline Phosphatase 157 H Total Protein 7.2 Albumin 2.3 L Globulin 4.9 H Albumin/Globulin Ratio 0.5 L Urine Color Yellow Urine Clarity Clear Urine pH 6.0 Ur Specific [place] 1.015 Urine Protein 100 H Urine Glucose (UA) 250 H Urine Ketones Negative Urine Occult Blood 25 H Urine Nitrite Negative Urine Bilirubin Negative Urine Urobilinogen Normal Ur Leukocyte Esterase Negative Urine RBC 0 SEEN Urine WBC 0 SEEN Ur Squamous Epith Cells 0 SEEN Urine Bacteria 0 SEEN Urine Mucus 0 SEEN Radiography Chest X-Ray - ED: 1 View, Read by ED Physician, Heart, Lungs, Mediastinum, Bony Structures, No Acute Disease and Chronic Changes Diagnostic Testing: Clinical Impression(s) from Imaging Studies Chest X-Ray 06/15/22 10:16 IMPRESSION: Hyperinflation. The lungs are clear. Electronically Signed: Kelvin Love MD at 11:05 EST , Chest x-ray, portable, single view interpreted both by myself and the radiologist shows chronic changes no acute process. No pneumonia. Normal cardiac silhouette. Rhythm Strip Rhythm Strip: Sinus Tach Rate: 116 Ectopy: None EKG Initial EKG: Attestation: I personally reviewed and interpreted this EKG as follows: Interpretation: No Acute Injury Pattern and Sinus Tachycardia Comments: Sinus tachycardia rate of 116 no acute signs of TX or ischemia or significant dysrhythmia. Unchanged from prior EKG from May 2022 Prior EKG tracings: available for review Prior: Unchanged Discharge Plan Triage Chief Complaint: General Illness ED Provider: Ray Barbosa Dx/Rx/DC Orders Clinical Impression: Generalized weakness, Chronic kidney disease, Adult failure to thrive, Unable to ambulate, History of diabetes mellitus, History of CAD (coronary artery disease) Instructions: ED Weakness (Uncertain Cause) Prescriptions: No Action nitroglycerin 0.4 mg tablet, sublingual 0.4 mg SUBLINGUAL Q5M PRN (Reason: Chest Pain) Qty: 25 3RF acetaminophen 500 mg Tablet 500 mg PO Q6H PRN (Reason: Pain) levothyroxine 100 mcg tablet 100 mcg PO DAILY Label Comments: TAKE 1 TABLET BY MOUTH ONCE DAILY metoprolol succinate 50 mg tablet extended release 24 hr 50 mg PO DAILY metformin 500 mg tablet 500 mg PO DAILY Label Comments: TAKE 1 TABLET BY MOUTH ONCE DAILY colchicine 0.6 mg capsule 0.6 mg PO DAILY Other Ambulatory Orders: Occupational Therapy Eval (Routine) Location: None Selected Ordered By: Dr. Ray Barbosa Physical Therapy Evaluation (Routine) Location: None Selected Ordered By: Dr. Ray Barbosa Primary Care Provider: Mike Salas Referrals: Mike Salas MD [Primary Care Provider] - As soon as possible Activity Restrictions/Additional Instructions: [facility] home physical therapy and Occupational Therapy have been consulted they should be contacting you at home to set up a home evaluation to help him with strengthening expected. Follow-up with your primary care physician Dr. Mike Salas as soon as possible. Return if you are feeling worse. Disposition Disposition: Home, Self Care
[2022-06-15 10:46] LABS: Hematocrit 35.8 % (40-54); Hemoglobin 11.8 g/dL (13.0-16.5); Mean Corpuscular Hgb 29.6 pg (27.0-32.0); Mean Corpuscular Volume 89.7 fL (80-94); Mean Platelet Vol. 10.5 fl (6.2-12.0); POSITIVE COUNT YES; POSITIVE DIFFERENTIAL YES; POSITIVE MORPHOLOGY YES; Platelet Count 210 K/mm3 (150-450); RBC Distribution Width CV 13.7 % (11.6-14.6); RBC Distribution Width SD 45.2 fl (35.1-43.9); Red Blood Count 3.99 M/mm3 (4.6-6.2); White Blood Count 12.4 K/mm3 (4.4-11.0)
[2022-06-15 10:47] LABS: Differential Indicated MANUAL DIFF
[2022-06-15] MEDS: Morphine 4 MG/ML Syringe IV (10:48)
[2022-06-15] MEDS: Ondansetron 4 MG/2 ML Vial IV (10:48)
[2022-06-15] MEDS: 0.9% Normal Saline 1,000 ML 1000 ML IV (10:49)
[2022-06-15 11:05] LABS: ALB/GLOB Ratio 0.5 RATIO (0.9-2.4); AST(SGOT) 16 U/L (15-37); Alanine Aminotransfer ALT/SGPT 17 U/L (16-61); Albumin, Serum 2.3 g/dL (3.2-5.0); Alkaline Phosphatase 157 U/L (45-117); Anion Gap 8 (5-15); BUN 26 mg/dL (7-18); BUN/Creat Ratio 13.3 RATIO (10-20); Calcium,Total 8.8 mg/dL (8.5-10.1); Chloride 101 mmol/L (98-107); Creatinine, Serum 1.95 mg/dL (0.70-1.30); EST Glomerular Filtration Rate 35 mL/min (>60); Est Glom Filt Rate - Afr Amer 42 mL/min (>60); Estimated Creatinine Clearance 23.63 ml/min; Globulin 4.9 g/dL (2.2-4.2); Glucose 311 mg/dL (74-106); Potassium 4.2 mmol/L (3.5-5.1); Protein, Total 7.2 g/dL (6.4-8.2); Sodium Level 133 mmol/L (136-145)
[2022-06-15 11:35] LABS: Bacteria 0 SEEN /hpf (None Seen); Mucous, Urine 0 SEEN /hpf (<or=2+); Red Blood Cells-Urine 0 SEEN /hpf (0-5); Squamous Epithelial Cells - UA 0 SEEN /hpf (0-5); White Blood Cells 0 SEEN /hpf (0-5)
[2022-06-15 11:39] LABS: Color, Urine Yellow (Yellow); Glucose, Dipstick 250 mg/dl (Normal); Ketone-Dipstick Negative (Negative); Leukocyte Esterase-Dipstick Negative /ul (Negative); Nitrite-Dipstick Negative (Negative); Occult Blood-Urine 25 /ul (Negative); Protein-Dipstick 100 mg/dl (Negative); Specific Gravity, Urine 1.015 (1.002-1.030); Urine Bilirubin Dipstick Negative (Negative); Urine Clarity Clear (Clear); Urine Urobilinogen Normal (Normal)
--- NOTE | 2022-06-15 11:58 | ED.RN ---
PT UNABLE TO AMBULATE. PT UNABLE TO SIT UP IN BED WITHOUT ASSISTANCE
[2022-06-15 12:06] LABS: Lymphocyte 5 % (19-41); Monocyte 20 % (0-10); Neutrophil-Segmented 75 % (47-70); Platelet Estimate ADEQUATE (ADEQ); Red Cell Morphology NORM C+C NORMAL (NORM C&C); Total Cells Counted 100 (MANUAL DIFF)
[2022-06-15 12:07] LABS: Absolute Lymphocyte Count 0.62 X10^3/uL (0.83-4.51); Absolute Neutrophil Count 9.3 X10^3/uL (2.0-7.7); Lymphocyte # 0.62 X10^3/ul (0.83-4.51)
[2022-06-15 13:34] VITALS: BP 125/71; PULSE 116; RESP 20; O2SAT 97
--- NOTE | 2022-06-15 14:09 | EDS_ITS ---
HPI History of Present Illness Chief Complaint: General Illness Informant: patient and spouse/S.O. Onset/Context/Timing Onset: Days Context: Gradual Onset Timing: Continuous Current Severity: Mild Maximum Severity: Mild Narrative Narrative: 79-year-old male history of diabetes, hypertension, chronic kidney disease and CAD. Progressively getting weak over the last several weeks with body aches and fatigue. Decreased oral intake. Now to the point where he cannot even get around at home using a walker. brought him in for evaluation. States that she is unable to care for him at this time. Prior similar symptoms: Yes Recent Illness/Hospitalization: Yes [facility] Medical History Ambulates with cane Atherosclerotic heart disease of [place] coronary artery without angina pectoris Brain TIA Chronic kidney disease Coronary atherosclerosis of [place] coronary artery Diabetes Dietary restriction Difficulty chewing Difficulty swallowing Essential hypertension Failure to thrive Gastric reflux Glucosuria Gout Hematuria Hyperlipidemia Hypertension Lumbar strain PONV (postoperative nausea and vomiting) Presence of stent in coronary artery (~10/31/10) Proteinuria Pure hypercholesterolemia Seizures Sleep apnea Thyroid disease Urinary frequency Walker as ambulation aid Weakness Wears glasses Home Medications nitroglycerin 0.4 mg sublingual tablet 0.4 mg sublingual Q5M PRN Chest Pain #25 tabs 11/06/18 [Rx Last Taken Unknown] acetaminophen 500 mg tablet 500 mg PO Q6H PRN Pain 04/12/22 [History Last Taken 06/14/22 19:30] levothyroxine 100 mcg tablet 100 mcg PO DAILY THYROID 04/12/22 [History Last Taken 06/14/22] metoprolol succinate 50 mg tablet,extended release 24 hr 50 mg PO DAILY BLOOD PRESSURE 04/12/22 [History Last Taken 06/14/22] colchicine 0.6 mg capsule 0.6 mg PO DAILY GOUT 06/15/22 [History Last Taken 06/12/22] metformin 500 mg tablet 500 mg PO DAILY 06/15/22 [History Last Taken 06/14/22] Allergy/AdvReac Type Severity Reaction Status Date / Time clopidogrel bisulfate Allergy Rash Verified 06/15/22 10:10 [From Plavix] cyclobenzaprine Allergy Rash Verified 06/15/22 10:10 [Cyclobenzaprine] fluoxetine HCl [From Prozac] Allergy Rash Verified 06/15/22 10:10 Family History Father Diabetes Mother Diabetes Surgical History H/O percutaneous transluminal coronary angioplasty History of back surgery History of cholecystectomy History of esophageal dilatation (~07/2021) Presence of coronary angioplasty implant and graft (~10/31/10) toenail removed Social History Smoking Status: Never smoker alcohol intake: never substance use type: does not use caffeine: Yes Type: tea Number of servings: 1 what type of physical activity do you participate in: none ROS ROS ED ROS Narrative Generalized weakness. Fatigue. Review of Systems ROS Unobtainable: Denies due to encephalopathy Constitutional Constitutional ED: Denies chills or fever(s) Eyes Eyes: Denies blurry vision ENT ENT ED: Denies ear pain Cardiovascular Cardiovascular: Denies chest pain Respiratory/Chest Respiratory/Chest: Denies cough or dyspnea Gastrointestinal Gastrointestinal: Denies abdominal pain Genitourinary Genitourinary ED: Denies dysuria or hematuria Musculoskeletal Musculoskeletal: Denies arthralgias Integumentary Denies abscess Neurologic Neurologic: Denies headache(s) Psychiatric Psychiatric: Denies anxiety or depression Endocrine Endocrinology: Denies cold intolerance Hematologic/Lymphatic Hematologic/Lymphatic: Reports none Allergic/Immunologic Allergic/Immunologic ED: Denies mouth swelling or tongue swelling EXAM Physical Exam Narrative Exam Narrative: 87-year-old male no acute distress. Vital signs are stable and afebrile. Pulse ox 98% on room air. He does not look septic or toxic. H EENT exam unremarkable. Neck nontender. Lungs clear to auscultation. Heart tachycardic rate about 115 no murmur. Chest wall nontender. Abdomen soft nontender. Moving all 4 extremities. He is awake alert. He answers questions and follows commands. He is generally weak but not lateralizing to one side or the other. Clinically looks dehydrated. Const Vital Signs: 06/15/22 10:05 06/15/22 10:35 06/15/22 13:34 Temperature 97.5 F L Temperature Source Temporal Pulse Rate 110 H 116 H Respiratory Rate 18 20 H Respiratory Effort Normal Respiratory Pattern Normal Blood Pressure 157/76 H 125/71 H Blood Pressure Mean 103 89 Pulse Ox 98 97 Oxygen Delivery Method Room Air Room Air Positive well nourished and well developed; Negative for obese, cachectic, contractures or unkempt General Appearance ED: well developed and NAD; Negative for unkempt, cachectic, contractures, cyanotic or diaphoretic Nutritional Appearance: Negative for cachectic or obese HEENT Reports dry mucous membranes; Denies moist mucous membranes Negative for trauma or tenderness Mouth ED: Yes dry mucous membranes Mouth: dry mucous membranes Eyes PERRL and EOMs intact bilaterally General Eye ED: Negative for pale conjunctiva or scleral icterus Neck no lymphadenopathy and supple General: Negative for tenderness Chest Wall inspection of chest normal and palpation of chest normal Resp normal respiratory effort and clear to auscultation bilaterally Effort and Inspection: Negative for retractions Auscultation: Negative for rales, rhonchi or wheezes Cardio regular rate, regular rhythm, S1 normal heart sound, S2 normal heart sound and no murmurs Palpation: Negative for palpable S3 Rate: Negative for bradycardia Rhythm: Negative for abnormal rhythm GI normal to inspection, nondistended, normoactive bowel sounds, non-tender, non- distended and no masses Inspection: Negative for abdominal distention Auscultation: normoactive bowel sounds Palpation: soft; Negative for tender or guarding Back/Spine no CVA tenderness General Back: Negative for CVA tenderness Cervical Spine: Negative for cervical spine tenderness Thoracic Spine / Upper Back: Negative for thoracic spinal tenderness Lumbar Spine / Lower Back: Negative for lumbar spinal tenderness Extremity normal to inspection General Extremety ED: Negative for edema or tenderness General Extremity: Negative for edema Neuro oriented x3 Sensorium / Orientation: alert; Negative for orientation impaired, lethargic or stuporous Motor Exam: strength 5/5 throughout Psych mental status grossly normal Appearance: Negative for unkempt Attitude: No agitated Mood & Affect: Negative for depressed or anxious Skin no rashes or lesions noted and no wounds General Skin Exam: Negative for elasticity normal Lesions: No lesion noted Rashes: No rashes noted Trauma: Negative for abrasion Wounds: Negative for wounds noted MDM MDM MDM Narrative Medical decision making narrative: 87-year-old male with extensive past medical history. Lab Data Labs: Laboratory Results - last 24 hr 06/15/22 06/15/22 06/15/22 10:25 10:25 11:25 WBC 12.4 H RBC 3.99 L Hgb 11.8 L Hct 35.8 L MCV 89.7 MCH 29.6 MCHC 33.0 RDW Std Deviation 45.2 H RDW Coeff of Sea 13.7 Plt Count 210 MPV 10.5 Neut % (Auto) Not Reportable Absolute Neuts (auto) 9.3 H Absolute Lymphs (auto) 0.62 L Total Counted 100 Neutrophils % (Manual) 75 H Lymphocytes % (Manual) 5 L Monocytes % (Manual) 20 H Diff Path Review May foll Platelet Estimate ADEQUATE RBC Morphology NORM C+C Sodium 133 L Potassium 4.2 Chloride 101 Carbon Dioxide 24.0 Anion Gap 8 BUN 26 H Creatinine 1.95 H Estim Creat Clear Calc 23.63 Est GFR (MDRD) Af Amer 42 L Est GFR (MDRD) Non-Af 35 L BUN/Creatinine Ratio 13.3 Glucose 311 H Calcium 8.8 Total Bilirubin 1.00 AST 16 ALT 17 Alkaline Phosphatase 157 H Total Protein 7.2 Albumin 2.3 L Globulin 4.9 H Albumin/Globulin Ratio 0.5 L Urine Color Yellow Urine Clarity Clear Urine pH 6.0 Ur Specific [place] 1.015 Urine Protein 100 H Urine Glucose (UA) 250 H Urine Ketones Negative Urine Occult Blood 25 H Urine Nitrite Negative Urine Bilirubin Negative Urine Urobilinogen Normal Ur Leukocyte Esterase Negative Urine RBC 0 SEEN Urine WBC 0 SEEN Ur Squamous Epith Cells 0 SEEN Urine Bacteria 0 SEEN Urine Mucus 0 SEEN Radiography Diagnostic Testing: Clinical Impression(s) from Imaging Studies Chest X-Ray 06/15/22 10:16 IMPRESSION: Hyperinflation. The lungs are clear. Electronically Signed: Kelvin Love MD at 11:05 EST , Rhythm Strip Rhythm Strip: Sinus Tach Rate: 116 Ectopy: None Discharge Plan Triage Chief Complaint: General Illness ED Provider: Ray Barbosa Dx/Rx/DC Orders Clinical Impression: Generalized weakness, Chronic kidney disease, Adult failure to thrive, Unable to ambulate, History of diabetes mellitus, History of CAD (coronary artery disease) Instructions: ED Weakness (Uncertain Cause) Prescriptions: No Action nitroglycerin 0.4 mg tablet, sublingual 0.4 mg SUBLINGUAL Q5M PRN (Reason: Chest Pain) Qty: 25 3RF acetaminophen 500 mg Tablet 500 mg PO Q6H PRN (Reason: Pain) levothyroxine 100 mcg tablet 100 mcg PO DAILY Label Comments: TAKE 1 TABLET BY MOUTH ONCE DAILY metoprolol succinate 50 mg tablet extended release 24 hr 50 mg PO DAILY metformin 500 mg tablet 500 mg PO DAILY Label Comments: TAKE 1 TABLET BY MOUTH ONCE DAILY colchicine 0.6 mg capsule 0.6 mg PO DAILY Other Ambulatory Orders: Occupational Therapy Eval (Routine) Location: None Selected Ordered By: Dr. Ray Barbsoa Physical Therapy Evaluation (Routine) Location: None Selected Ordered By: Dr. Ray Barbosa Primary Care Provider: Mike Salas Referrals: Mike Salas MD [Primary Care Provider] - As soon as possible Activity Restrictions/Additional Instructions: [facility] home physical therapy and Occupational Therapy have been consulted they should be contacting you at home to set up a home evaluation to help him with strengthening expected. Follow-up with your primary care physician Dr. Mike Salas as soon as possible. Return if you are feeling worse. Disposition Disposition: Home, Self Care
--- NOTE | 2022-06-15 14:16 | CM.ED ---
DARREN Note Referral Source: MD Barbosa Referral Reason: placement options DARREN informed by patient has been unable to ambulate, and his is unable to meet his needs at home, interested in discussing alternative options. DARREN met with patient and introduced herself and role as [facility] Hard Tile Setter Apprentice. Patient stated his was getting lunch and would prefer SW come back when is present. DARREN met with patient and patient's and introduced herself and role as [facility] Hard Tile Setter Apprentice. SW inquired about patient's current needs as well as limitations at home. Patient's explained she has been caring for the patient at home, however, she is struggling to continue to care for him as he needs assistance to move and shower. Patient's explained she wanted him to return home with home health and was not interested in a SNF list. SW inquired about home health preferences, patient's stated she believes they previously used the hospital's home health and was open to using them again. DARREN contacted [facility] staff and provided a referral for home health services for the patient. Erna stated H&P, facesheet, medication list as well as PT/OT orders would need to be faxed to the following number [phone]. DARREN met with MD Barbosa to inform him of patient and patient's interest in home health and informed him an order for PT/OT home health was needed to complete the referral. DARREN contacted by RN Yanet that patient's does not feel they can go home with home health and wanted home health services to start after patient was able to walk and was released from hospital. RN requested SW to meet with patient again. DARREN met with patient and patient's and apologized for confusion and asked for clarification on needs. Patient's stated she was hoping the patient would be admitted to the hospital until he was able to move around better and then start home health services at discharge. DARREN informed patient's patient would need PT/OT to help patient and those services would be available through outpatient, home health or at a SNF. Patient's stated she was interested in SNF but was concerned about their financial obligation. DARREN explained she could provide a list of in network SNFs and recommended she contact her insurance for further clarification about SNF coverage. DARREN met with patient and patient's and provided a list of in network intermediate facilities based on patient's location. Patient's stated their daughter works at [employer] and was looking into if they could accept patient. Patient stated her son was also looking into options. Patient's was receptive towards list, but stated she wanted to talk to her daughter and son before informing SW of preferences. SW will continue to follow. SW updated MD Barbosa patient and patient's were interested in SNF pending acceptance and precert. DARREN updated RN. SW left for home health stating patient no longer needed referral for services as they were looking into SNF options. Plan: SNF pending acceptance and precert Sosa Burch BARREL ASSEMBLY INSPECTOR, SARAH
--- NOTE | 2022-06-15 14:16 | PCM.HP.STD ---
HPI - General General Date of Admission: 06/15/22 Date of Service: 06/15/22 Chief Complaint: Debility/Generalized weakness HPI Narrative ROSHNI GARCIA, is a 87 M who presented to the emergency department at [facility] on 06/15/2021 with a chief complaint of generalized weakness and pain. Patient had an admission here earlier in April for similar symptoms and was able to be discharged home however over the last 1 to 2 weeks he has had increased body pain, falls, and general debility. His is stating that he cannot even get around with a walker in the house at this point. He is complaining of bilateral shoulder pain and hip pain that is greater than distal pain but he also reports that his hands are fairly stiff and tender as well. He has had some nausea without vomiting, decreased energy and decreased oral intake. He denies any fever or chills. He denies any urinary symptoms or change in his bowel habits however he states he has intermittent loose stools. At this point his indicates that she is unable to take care of him and he will likely need further assistance prior to discharge. In the emergency department they tried to get him placed prior to him be admitted however he needs precertification from [facility] prior to admission to skilled facility therefore he will be admitted here for ongoing care. Vital signs on presentation show temperature of 97.9, blood pressure 150/90, heart rate 115, respiratory rate 18, oxygen saturations are 97% on room air. CBC shows a mild leukocytosis at 12.8. He is anemic with a hemoglobin of 11.8 which appears to be new after his early April admission. Prior to that his hemoglobin ran between 13 and 14. He did have a mild shift with a 75% neutrophilia and also monocytosis at 20%. His chemistry panel showed mild hypokalemia with a potassium of 133 however I suspect this is a pseudohyponatremia as his blood sugar is 331. His BUN and creatinine are elevated but stable at 26 and 1.95 respectively (baseline creatinine is 1.7-2). His liver functions are normal. His UA was unremarkable without any signs of infection. His EKG shows sinus tachycardia without any ST-T wave changes concerning for ischemic events and intervals are normal. Chest x-ray shows hyperinflation but otherwise unremarkable. FORMERLY [facility], 1928–1983 Medical History Ambulates with cane Atherosclerotic heart disease of [place] coronary artery without angina pectoris Brain TIA Chronic kidney disease Coronary atherosclerosis of [place] coronary artery Diabetes Dietary restriction Difficulty chewing Difficulty swallowing Essential hypertension Failure to thrive Gastric reflux Glucosuria Gout Hematuria Hyperlipidemia Hypertension Lumbar strain PONV (postoperative nausea and vomiting) Presence of stent in coronary artery (~10/31/10) Proteinuria Pure hypercholesterolemia Seizures Sleep apnea Thyroid disease Urinary frequency Walker as ambulation aid Weakness Wears glasses Home Medications nitroglycerin 0.4 mg sublingual tablet 0.4 mg sublingual Q5M PRN Chest Pain #25 tabs 11/06/18 [Rx Last Taken Unknown] acetaminophen 500 mg tablet 500 mg PO Q6H PRN Pain 04/12/22 [History Last Taken 06/14/22 19:30] levothyroxine 100 mcg tablet 100 mcg PO DAILY THYROID 04/12/22 [History Last Taken 06/14/22] metoprolol succinate 50 mg tablet,extended release 24 hr 50 mg PO DAILY BLOOD PRESSURE 04/12/22 [History Last Taken 06/14/22] colchicine 0.6 mg capsule 0.6 mg PO DAILY GOUT 06/15/22 [History Last Taken 06/12/22] metformin 500 mg tablet 500 mg PO DAILY 06/15/22 [History Last Taken 06/14/22] Allergy/AdvReac Type Severity Reaction Status Date / Time clopidogrel bisulfate Allergy Rash Verified 06/15/22 10:10 [From Plavix] cyclobenzaprine Allergy Rash Verified 06/15/22 10:10 [Cyclobenzaprine] fluoxetine HCl [From Prozac] Allergy Rash Verified 06/15/22 10:10 Family History Father Diabetes Mother Diabetes Surgical History H/O percutaneous transluminal coronary angioplasty History of back surgery History of cholecystectomy History of esophageal dilatation (~07/2021) Presence of coronary angioplasty implant and graft (~10/31/10) toenail removed no surgical history Social History (Updated 06/15/22 @ 14:[address] Mery Mitchell DO) household members: spouse housing: house other: Typically ambulates with a cane however most recently with a walker seconda Smoking Status: Never smoker alcohol intake: never substance use type: does not use caffeine: Yes Type: tea Number of servings: 1 what type of physical activity do you participate in: none ROS Constitutional Constitutional: Reports anorexia, fatigue, malaise and weakness; Denies change in weight, chills, fever(s), night sweats or other Eyes Eyes: Denies blurry vision, change in eye color, change in vision, discharge from eye(s), double vision, erythema, eye pain, loss of vision or other ENT HEENT: Reports abnormal hearing and hearing loss; Denies dysphagia, ear pain, epistaxis, headache(s), nasal congestion, nasal discharge, post nasal drip, sinus pressure, sore throat or other Cardiovascular Cardiovascular: Denies chest pain, claudication, dyspnea on exertion, edema, lightheadedness, orthopnea, palpitations, paroxysmal nocturnal dyspnea, rapid heart rate, syncope or other Respiratory/Chest Respiratory/Chest: Denies cough, dyspnea, excessive phlegm production, hemoptysis, productive cough, shortness of breath at rest, shortness of breath with exertion, wheezing or other Gastrointestinal Gastrointestinal: Reports loose stools and nausea; Denies abdominal pain, coffee ground emesis, constipation, diarrhea, dyspepsia, hematemesis, hematochezia, melena, vomiting or other Genitourinary Genitourinary: Denies burning urination, difficulty urinating, dysuria, hematuria, nocturia, urinary frequency, urinary hesitancy, urinary incontinence, urinary urgency or other Musculoskeletal Musculoskeletal: Reports arthralgias, joint pain, joint stiffness, joint swelling and myalgias; Denies back pain, neck pain or other Neurologic Neurologic: Reports abnormal gait; Denies abnormal speech, confusion, disequilibrium, dizziness, focal weakness, headache(s), numbness, paresthesias, seizure-like activity, seizures, syncope, tingling, tremor(s) or other Psychiatric Psychiatric: Denies anxiety, depression, homicidal ideation, suicidal ideation or other Endocrine Endocrinology: Denies change in body appearance, cold intolerance, excessive sweating, heat intolerance, polydipsia, polyuria or other Hematologic/Lymphatic Hematologic/Lymphatic: Denies anemia, easy bleeding, easy bruising, lymphadenopathy or other Allergic/Immunologic Allergic/Immunologic: Denies rhinitis, hives, eczemia, asthma or other Vital Signs Vital Signs Vital Signs: 06/15/22 10:05 06/15/22 10:35 06/15/22 13:34 Temperature 97.5 F L Temperature Source Temporal Pulse Rate 110 H 116 H Respiratory Rate 18 20 H Respiratory Effort Normal Respiratory Pattern Normal Blood Pressure 157/76 H 125/71 H Blood Pressure Mean 103 89 Pulse Ox 98 97 Oxygen Delivery Method Room Air Room Air Weight Weight: 71 kg Body Mass Index (BMI) 25.2 Physical Exam Const alert and no apparent distress Constitutional Narrative: Elderly white male sitting up in bed, appears comfortable nontoxic, at bedside oriented to self, place, and month but not year, was able to tell me the president night states- states this is close to his baseline General Appearance: cooperative HEENT normocephalic and head/scalp atraumatic; Negative for hearing grossly normal bilaterally HEENT Narrative: Mucous membranes are slightly dry, moderate hearing loss Eyes PERRL, EOMs intact bilaterally and conjunctivae normal Eyes Narrative: No scleral icterus Neck no lymphadenopathy, supple, no JVD and no carotid bruits Neck Narrative: Trachea midline, no thyroid enlargement Resp normal respiratory effort, no retractions, no use of accessory muscles and clear to auscultation bilaterally Auscultation: Negative for crackles, rhonchi or wheezes Cardio regular rhythm, S1 normal heart sound, S2 normal heart sound, no murmurs, no rub, no gallops and no clicks Cardio Narrative: Slight tachycardia GI normal to inspection, nondistended, normoactive bowel sounds, soft to palpation and non-tender Extremity no clubbing, cyanosis or edema Extremity Narrative: 2+ pedal pulses, joints of the hand with gouty tophi changes and decreased mobility with some tenderness in all the knuckles (PIPs), tenderness of bilateral shoulders with decreased range of motion, elbow range of motion is within normal limits, tenderness of bilateral hips laterally, knees are unremarkable, ankles unremarkable Skin no rashes or lesions noted, no wounds, skin turgor normal, no jaundice, no petechiae and no mottling Neuro CN's II-XII intact bilaterally, moves all extremities and no focal motor deficits Neuro Narrative: Significant generalized weakness but no focal deficits Speech: speech normal Psych affect normal Psych Narrative: Pleasant, good eye contact Results Lab / Micro Data Attestation: I reviewed the patient's lab results. Result Diagrams: 06/15/22 10:25 06/15/22 10:25 Labs: Laboratory Results - last 24 hr 06/15/22 10:25: WBC 12.4 H, RBC 3.99 L, Hgb 11.8 L, Hct 35.8 L, MCV 89.7, MCH 29.6, MCHC 33.0, RDW Std Deviation 45.2 H, RDW Coeff of Sea 13.7, Plt Count 210, MPV 10.5, Neut % (Auto) Not Reportable, Absolute Neuts (auto) 9.3 H, Absolute Lymphs (auto) 0.62 L, Total Counted 100, Neutrophils % (Manual) 75 H, Lymphocytes % (Manual) 5 L, Monocytes % (Manual) 20 H, Diff Path Review October, Platelet Estimate ADEQUATE, RBC Morphology NORM C+C 06/15/22 10:25: Sodium 133 L, Potassium 4.2, Chloride 101, Carbon Dioxide 24.0, Anion Gap 8, BUN 26 H, Creatinine 1.95 H, Estim Creat Clear Calc 23.63, Est GFR (MDRD) Af Amer 42 L, Est GFR (MDRD) Non-Af 35 L, BUN/Creatinine Ratio 13.3, Glucose 311 H, Calcium 8.8, Total Bilirubin 1.00, AST 16, ALT 17, Alkaline Phosphatase 157 H, Total Protein 7.2, Albumin 2.3 L, Globulin 4.9 H, Albumin/Globulin Ratio 0.5 L 06/15/22 11:25: Urine Color Yellow, Urine Clarity Clear, Urine pH 6.0, Ur Specific [place] 1.015, Urine Protein 100 H, Urine Glucose (UA) 250 H, Urine Ketones Negative, Urine Occult Blood 25 H, Urine Nitrite Negative, Urine Bilirubin Negative, Urine Urobilinogen Normal, Ur Leukocyte Esterase Negative, Urine RBC 0 SEEN, Urine WBC 0 SEEN, Ur Squamous Epith Cells 0 SEEN, Urine Bacteria 0 SEEN, Urine Mucus 0 SEEN Micro: Microbiology 06/15/22 10:25 Nasal Secretion SARS-CoV-2 & FLU Antigen (Rapid) - Final Rhythm Strip Rhythm Strip: Sinus Tach Rate: 116 Ectopy: None Radiology Impression Chest X-Ray 06/15/22 10:16 IMPRESSION: Hyperinflation. The lungs are clear. Electronically Signed: Kelvin Love MD at 11:05 EST , Assessment & Plan Assessment/Plan (1) Generalized weakness: (2) Adult failure to thrive: (3) Unable to ambulate: (4) Polyarthralgia: (5) Pseudohyponatremia: (6) Hyperglycemia: PLAN: Plan Polyarthralgia with generalized weakness and inability ambulate -Patient does have chronic gout changes noted in bilateral hands -Also concerning for possible PMR -Check sed rate -Check CRP -Check CK -If inflammatory markers are elevated will pursue further rheumatological work-up and initiate prednisone 20 mg twice daily -Consult PT/OT -Case management consulted as patient may need placement at discharge depending on progress -As of right now the states she is unable to take him home in the current condition he is in Pseudohyponatremia -Related to hyperglycemia -Corrected sodium is 136.38 Hyperglycemia secondary to DM-2 -Most recent A1c was on 04/13/2022 and it was 6.7 -Only takes metformin at home-we will hold at this time -May need to consider changing this at discharge given his chronic kidney disease -It appears that his sugars are elevated may be because of inflammatory process and this is reactive -See above -Add Lantus 10 units at at bedtime -Sliding scale moderate dose -Accu-Cheks -Carb controlled diet Hypothyroidism -Continue home levothyroxine -Patient did have TSH performed at his last hospitalization in April and it was within normal range -No need to repeat TSH at this time Hypertension -Continue home metoprolol Gout -Continue home colchicine--> need low-dose because of his renal function at baseline -We will check uric acid with current pain -We will likely start steroids if uric acid elevated CKD stage IIIb -Avoid nephrotoxins -Current serum creatinine is 1.95 and appears to be in his baseline range of 1.7-2.0 -Had a retroperitoneal ultrasound done at his last visit which did not show any acute issues DVT prophylaxis -Heparin 3 times daily -SCDs CODE STATUS -DNR CCA no ET tube as per discussion with he and his on admission Charges/Coding Visit Charges Inpatient E&M: 25801 Init Hosp L2
[2022-06-15 14:39] VITALS: BP 150/90; PULSE 115; RESP 18; TEMP 36.6; O2SAT 97
[2022-06-15 15:00] VITALS: BP 159/93; PULSE 114; RESP 17; O2SAT 95
[2022-06-15 15:00] LABS: Erythrocyte Sedimentation Rate 87 mm/hr (0-20)
[2022-06-15 15:06] LABS: CPK Total, Creatine Kinase 18 U/L (39-308)
[2022-06-15 15:10] LABS: Uric Acid 7.1 mg/dL (3.5-7.2)
--- NOTE | 2022-06-15 15:42 | PCM.HOSP.N ---
Hospitalist Note Inflammatory markers came back markedly elevated with an ESR of 87 and a CRP of 233. My suspicion is very high for polymyalgia rheumatica and I did give him 1 dose of 60 mg of IV steroids emergency department starting tomorrow he will get 20 mg daily of oral prednisone. I also started a PPI for GI protection with ongoing steroid use. I did send off an RAFFY, rheumatoid factor, and anti-CCP antibodies as well.
[2022-06-15 16:30] VITALS: BP 170/95; PULSE 121; RESP 20; TEMP 37.8; O2SAT 99
[2022-06-15 16:38] VITALS: BMI 23.8
[2022-06-15 17:26] LABS: Bedside Glucose 259 mg/dL (74-106)
[2022-06-15] MEDS: Insulin Lispro 100 UNIT/ML INSULN.PEN SC (17:32)
[2022-06-15 17:54] LABS: Rheumatoid Factor < 10.0 IU/mL (<15)
[2022-06-15 20:27] VITALS: BP 128/71; PULSE 122; RESP 18; TEMP 37.3; O2SAT 97
[2022-06-15 21:26] LABS: Bedside Glucose 388 mg/dL (74-106)
[2022-06-15] MEDS: Insulin Glargine-YFGN 100 UNIT/ML Pen 10 UNIT SC (21:56)
[2022-06-15] MEDS: Heparin Injection (Vial) 5,000 UNIT/ML VIAL 5000 UNIT SC (21:56)
[2022-06-16 02:00] VITALS: BP 114/61; PULSE 97; RESP 18; TEMP 37.2; O2SAT 99
[2022-06-16 04:45] LABS: Absolute Lymphocyte Count 0.69 X10^3/uL (0.83-4.51); Absolute Neutrophil Count 9.4 X10^3/uL (2.0-7.7); Basophil# 0.02 X10^3/uL; Basophil% 0.2 % (0-1); Eosinophil# 0.01 X10^3/uL; Eosinophils% 0.1 % (0-5); Hemoglobin 10.4 g/dL (13.0-16.5); Lymphocyte # 0.69 X10^3/ul (0.83-4.51); Lymphocyte % 5.5 % (19-41); Mean Corp Hgb Conc 33.5 g/dL (32-36); Mean Corpuscular Hgb 30.3 pg (27.0-32.0); Mean Corpuscular Volume 90.4 fL (80-94); Mean Platelet Vol. 10.5 fl (6.2-12.0); Monocyte# 2.05 X10^3/uL; Monocyte% 16.4 % (0-10); NRBC Flagged by Analyzer 0 % (0-5); Neutrophil # 9.36 X10^3/uL (2.7-7.7); POSITIVE DIFFERENTIAL YES; Platelet Count 191 K/mm3 (150-450); RBC Distribution Width CV 13.7 % (11.6-14.6); RBC Distribution Width SD 45.8 fl (35.1-43.9); Red Blood Count 3.43 M/mm3 (4.6-6.2); White Blood Count 12.5 K/mm3 (4.4-11.0)
[2022-06-16 05:13] LABS: Differential Indicated SCAN CRITERIA MET
[2022-06-16 05:21] LABS: Anion Gap 8 (5-15); BUN 33 mg/dL (7-18); BUN/Creat Ratio 14.4 RATIO (10-20); Calcium,Total 8.1 mg/dL (8.5-10.1); Chloride 103 mmol/L (98-107); Creatinine, Serum 2.29 mg/dL (0.70-1.30); EST Glomerular Filtration Rate 29 mL/min (>60); Est Glom Filt Rate - Afr Amer 35 mL/min (>60); Estimated Creatinine Clearance 20.12 ml/min; Glucose 336 mg/dL (74-106); Magnesium 1.6 mg/dL (1.6-2.6); Phosphorus 2.2 mg/dL (2.5-4.9); Sodium Level 135 mmol/L (136-145)
[2022-06-16] MEDS: Insulin Lispro 100 UNIT/ML INSULN.PEN SC ×3 (05:30→16:14)
[2022-06-16] MEDS: Heparin Injection (Vial) 5,000 UNIT/ML VIAL 5000 UNIT SC ×3 (05:30→21:48)
[2022-06-16] MEDS: Levothyroxine 100 MCG Tablet PO (05:30)
[2022-06-16 05:58] LABS: Differential Comment SCANNED
[2022-06-16 06:05] LABS: Bedside Glucose 328 mg/dL (74-106)
--- NOTE | 2022-06-16 07:57 | PN.HOSP_ITS ---
Subjective Subjective Feels better. Achiness feels better. Objective Data Objective Data Vital Signs: Vital Signs Temp Pulse Resp BP Pulse Ox O2 Del Method 37.2 C 97 18 114/61 99 Room Air 06/16/22 02:00 06/16/22 02:00 06/16/22 02:00 06/16/22 02:00 06/16/22 02:00 06/16/22 06:38 Oxygen Delivery Method Room Air Weight: 66.814 kg Body Mass Index (BMI) 23.8 Intake & Output: Intake and Output for Last 24 Hours 06/14/22 06/15/22 06/16/22 23:59 23:59 23:59 Intake Total 1240 / 1240 480 / 480 Output Total 400 / 400 600 / 600 Balance 840 / 840 -120 / -120 Lab / Micro Data Result Diagrams: 06/16/22 04:24 06/16/22 04:24 Labs: Laboratory Results - last 24 hr 06/15/22 10:25: WBC 12.4 H, RBC 3.99 L, Hgb 11.8 L, Hct 35.8 L, MCV 89.7, MCH 29.6, MCHC 33.0, RDW Std Deviation 45.2 H, RDW Coeff of Sea 13.7, Plt Count 210, MPV 10.5, Neut % (Auto) Not Reportable, Absolute Neuts (auto) 9.3 H, Absolute Lymphs (auto) 0.62 L, Total Counted 100, Neutrophils % (Manual) 75 H, Lymphocytes % (Manual) 5 L, Monocytes % (Manual) 20 H, Diff Path Review October, Platelet Estimate ADEQUATE, RBC Morphology NORM C+C 06/15/22 10:25: Sodium 133 L, Potassium 4.2, Chloride 101, Carbon Dioxide 24.0, Anion Gap 8, BUN 26 H, Creatinine 1.95 H, Estim Creat Clear Calc 23.63, Est GFR (MDRD) Af Amer 42 L, Est GFR (MDRD) Non-Af 35 L, BUN/Creatinine Ratio 13.3, Glucose 311 H, Calcium 8.8, Total Bilirubin 1.00, AST 16, ALT 17, Alkaline Phosphatase 157 H, Total Protein 7.2, Albumin 2.3 L, Globulin 4.9 H, Albumin/Globulin Ratio 0.5 L 06/15/22 10:25: ESR 87 H 06/15/22 10:25: C-React Prot Ext Range 233.00 H 06/15/22 10:25: Total Creatine Kinase 18 L 06/15/22 10:25: Uric Acid 7.1 06/15/22 10:25: Rheumatoid Factor < 10.0 06/15/22 11:25: Urine Color Yellow, Urine Clarity Clear, Urine pH 6.0, Ur Specific [place] 1.015, Urine Protein 100 H, Urine Glucose (UA) 250 H, Urine Ketones Negative, Urine Occult Blood 25 H, Urine Nitrite Negative, Urine Bilirubin Negative, Urine Urobilinogen Normal, Ur Leukocyte Esterase Negative, Urine RBC 0 SEEN, Urine WBC 0 SEEN, Ur Squamous Epith Cells 0 SEEN, Urine Bact eria 0 SEEN, Urine Mucus 0 SEEN 06/15/22 17:07: POC Glucose 259 H 06/15/22 20:58: POC Glucose 388 H 06/16/22 04:24: WBC 12.5 H, RBC 3.43 L, Hgb 10.4 L, Hct 31.0 L, MCV 90.4, MCH 30.3, MCHC 33.5, RDW Std Deviation 45.8 H, RDW Coeff of Sea 13.7, Plt Count 191, MPV 10.5, Immature Gran % (Auto) 2.800 H, Neut % (Auto) 75.0 H, Lymph % (Auto) 5.5 L, [place] % (Auto) 16.4 H, Eos % (Auto) 0.1, Baso % (Auto) 0.2, Absolute Neuts (auto) 9.4 H, Absolute Lymphs (auto) 0.69 L, Nucleated RBC % 0, Differential Comment SCANNED, Diff Path Review October foll 06/16/22 04:24: Sodium 135 L, Potassium 4.0, Chloride 103, Carbon Dioxide 24.0, Anion Gap 8, BUN 33 H, Creatinine 2.29 H, Estim Creat Clear Calc 20.12, Est GFR (MDRD) Af Amer 35 L, Est GFR (MDRD) Non-Af 29 L, BUN/Creatinine Ratio 14.4, Glucose 336 H, Calcium 8.1 L, Phosphorus 2.2 L, Magnesium 1.6 06/16/22 05:25: POC Glucose 328 H Micro: Microbiology 06/15/22 10:25 Nasal Secretion SARS-CoV-2 & FLU Antigen (Rapid) - Final Radiography Diagnostic Testing: Radiology Impression Chest X-Ray 06/15/22 10:16 IMPRESSION: Hyperinflation. The lungs are clear. Electronically Signed: Kelvin Love MD at 11:05 EST , Rhythm Strip Rhythm Strip: Sinus Tach Rate: 116 Ectopy: None Physical Exam Const alert and no apparent distress HEENT head/scalp atraumatic and moist oral mucous membranes Resp normal respiratory effort, no retractions, no use of accessory muscles and clear to auscultation bilaterally Cardio regular rate, regular rhythm, S1 normal heart sound and S2 normal heart sound GI normal to inspection, nondistended, normoactive bowel sounds, soft to palpation, non-tender and non-distended Extremity normal to inspection Assessment & Plan Assessment/Plan (1) Generalized weakness: PLAN: elevated ESR and CRP. steroid initiated and continue indefinitely rheumatologic studies ordered and pending follow up rheumatology as outpt. (2) Adult failure to thrive: PLAN: PT OT eval and treat unable to care for him likely will require SNF. (3) Pseudohyponatremia: PLAN: -Related to hyperglycemia -Corrected sodium is 136.38 no additional work up at this time. (4) Diabetes: QUALIFIERS: Diabetes mellitus complication status: with other specified complication Diabetes mellitus lead customer service representative insulin use: without lead customer service representative use Diabetes mellitus type: type 2 Qualified Code(s): E11.69 - Type 2 diabetes mellitus with other specified complication PLAN: type 2 a1c 7.1 high before steroids given that he'll be on steroid indefinitely, continue basal insulin. He received 10 last night and glucose still in 300s, will increase to 20 and monitor metformin on hold PLAN: Plan Chronic stable conditions: Hypothyroidism -Continue home levothyroxine -Patient did have TSH performed at his last hospitalization in April and it was within normal range -No need to repeat TSH at this time Hypertension -Continue home metoprolol Gout -Continue home colchicine--> need low-dose because of his renal function at baseline -We will check uric acid with current pain -We will likely start steroids if uric acid elevated CKD stage IIIb -Avoid nephrotoxins -Current serum creatinine is 1.95 and appears to be in his baseline range of 1.7-2.0 -Had a retroperitoneal ultrasound done at his last visit which did not show any acute issues DVT prophylaxis -Heparin 3 times daily -SCDs CODE STATUS -DNR CCA no ET tube as per discussion with he and his on admission Charges/Coding Visit Charges Inpatient E&M: 87403 Subs Hosp L2
[2022-06-16 09:29] VITALS: PULSE 95
[2022-06-16] MEDS: Pantoprazole Sodium 40 MG Tablet PO (09:29)
[2022-06-16] MEDS: Colchicine 0.6 MG TABLET PO (09:29)
[2022-06-16] MEDS: predniSONE 20 MG Tablet PO (09:29)
[2022-06-16] MEDS: Metoprolol(XL)Succ 50 MG Tablet PO (09:29)
[2022-06-16 10:00] VITALS: BP 123/67; PULSE 95; RESP 16; TEMP 36.8; O2SAT 99
--- NOTE | 2022-06-16 10:08 | CASEMGMT ---
Addendum entered by Mary Singer 06/16/22 10:59: Social Work Pt's is here now. SW gave her SNF list from [facility] as described below. SW explained started the referral process to [facility], waiting for PT to see pt so the referral can be completed. SW will continue to follow. ROSLYN Morris Original Note: Social Work SW called , confirmed w/ that she would prefer pt go to a longterm facility at this time, as she does not feel she can care for him at home until he gets stronger. SW reviewed w/ some options on the phone, and will provide to when she comes in a list of longterm facilities from [facility], in pt's preferred geographic area, insurance network and complete with quality and resource use data. did state she wanted [facility] or [facility]. SW explained [facility] does not come up as in network. states she prefers [facility] as [facility] told pt's daughter they do not have enough staffing. SW explained will start the referral process and will update her when she is here. SW did also educate the on the process with insurance, that we will need to get approval from both the [facility]ci and insurance. SW also explained that it is usually short term that insurance authorizes. states understanding. She would like home health after SNF placement, SW explained the [facility]ci will make that referral. SW sent initial referral via [facility], and left a message for Kaylen at [facility]. PT/OT still pending. SW will continue to follow. ROSLYN Morris
[2022-06-16 11:51] LABS: Bedside Glucose 227 mg/dL (74-106)
[2022-06-16] MEDS: 0.9% Saline Lock 10 ML Syringe IV (15:33)
--- NOTE | 2022-06-16 16:24 | CASEMGMT ---
Social Work SW sent all therapy evaluations to [facility]. SW will start precert w/[facility] once [facility] lets SW know if they can accept pt. ROSLYN Morris
[2022-06-16 16:35] LABS: Bedside Glucose 418 mg/dL (74-106)
--- NOTE | 2022-06-16 16:53 | CASEMGMT ---
TC to pt to complete [facility] form as pt is confused. No answer on phone. Will attempt [facility] at a later time.
[2022-06-16 17:34] VITALS: BP 148/96; PULSE 95; RESP 14; TEMP 36.8; O2SAT 97
[2022-06-16 20:00] VITALS: BP 154/92; PULSE 92; RESP 18; TEMP 36.6; O2SAT 96
[2022-06-16] MEDS: Insulin Glargine-YFGN 100 UNIT/ML Pen 20 UNIT SC (21:49)
[2022-06-16 22:11] LABS: Bedside Glucose 438 mg/dL (74-106)
[2022-06-17] VITALS (8 sets, daily range): BP systolic 126–158; BP diastolic 61–89; PULSE 76–98; RESP 14–16; TEMP 36.3–36.7; O2SAT 97–99
[2022-06-17] MEDS: Insulin Lispro 100 UNIT/ML INSULN.PEN SC ×5 (05:06→16:16)
[2022-06-17] MEDS: Heparin Injection (Vial) 5,000 UNIT/ML VIAL 5000 UNIT SC ×3 (05:07→22:37)
[2022-06-17] MEDS: Levothyroxine 100 MCG Tablet PO (05:07)
[2022-06-17 05:41] LABS: Bedside Glucose 314 mg/dL (74-106)
[2022-06-17 05:42] LABS: Hematocrit 32.4 % (40-54); Hemoglobin 10.7 g/dL (13.0-16.5); Mean Corpuscular Hgb 29.6 pg (27.0-32.0); Mean Corpuscular Volume 89.5 fL (80-94); Mean Platelet Vol. 10.8 fl (6.2-12.0); POSITIVE COUNT YES; POSITIVE DIFFERENTIAL YES; POSITIVE MORPHOLOGY YES; Platelet Count 239 K/mm3 (150-450); RBC Distribution Width CV 13.7 % (11.6-14.6); RBC Distribution Width SD 44.8 fl (35.1-43.9); Red Blood Count 3.62 M/mm3 (4.6-6.2); White Blood Count 15.7 K/mm3 (4.4-11.0)
[2022-06-17 05:45] LABS: Differential Indicated MANUAL DIFF
[2022-06-17 06:06] LABS: Anion Gap 8 (5-15); BUN 46 mg/dL (7-18); BUN/Creat Ratio 19.4 RATIO (10-20); Calcium,Total 8.4 mg/dL (8.5-10.1); Chloride 100 mmol/L (98-107); Creatinine, Serum 2.37 mg/dL (0.70-1.30); EST Glomerular Filtration Rate 28 mL/min (>60); Est Glom Filt Rate - Afr Amer 34 mL/min (>60); Estimated Creatinine Clearance 19.44 ml/min; Glucose 327 mg/dL (74-106); Potassium 4.2 mmol/L (3.5-5.1); Sodium Level 133 mmol/L (136-145)
--- NOTE | 2022-06-17 07:07 | PCM.PN.HOSP ---
Subjective Subjective Still with myalgias. Objective Data Objective Data Vital Signs: Vital Signs Temp Pulse Resp BP Pulse Ox O2 Del Method 36.6 C 85 16 145/75 H 99 Room Air 06/17/22 05:10 06/17/22 05:10 06/17/22 05:10 06/17/22 05:10 06/17/22 05:10 06/17/22 05:10 Oxygen Delivery Method Room Air Weight: 66.814 kg Body Mass Index (BMI) 23.8 Intake & Output: Intake and Output for Last 24 Hours 06/15/22 06/16/22 06/17/22 23:59 23:59 23:59 Intake Total 1240 / 1240 1424 / 1424 600 / 600 Output Total 400 / 400 800 / 800 600 / 600 Balance 840 / 840 624 / 624 0 / 0 Medical Nutrition Assessment Dietitian: Malnutrition Criteria Met Start: 06/16/22 14:05 Freq: Status: Active Protocol: Document 06/16/22 14:05 (Rec: 06/16/22 14:05 [id number]) Nutrition Malnutrition Evidence of Malnutrition Exists Yes Malnutrition (severe): Acute Illness/Injury Evidenced By Suboptimal Energy Intake ( Severe),Weight Loss (Severe) Clinical Problem Acute Disease or Injury Related Malnutrition Etiology severe, acute malnutrition related to inadequate energy intake Signs/Symptoms as evidenced by unintentional wt loss of 7.7#/5% < 1 month; estimated PO intake meeting < 50% of estimated energy needs > 5 months Status Active Problem Recommendation Dietitian Recommendations/Changes Continue 1999 calorie controlled, consistent CHO diet as tolerated- texture/ consistency modifications per ATTORNEY LAWYER. Will liberlize diet if PO intake further declines. Will adjust ONS to 120mL Glucerna 4x/day w/ medpass for additional calories/protein if consumed. Lab / Micro Data Result Diagrams: 06/17/22 04:52 06/17/22 04:52 Labs: Laboratory Results - last 24 hr 06/16/22 11:31: POC Glucose 227 H 06/16/22 16:12: POC Glucose 418 H 06/16/22 21:38: POC Glucose 438 H 06/17/22 04:52: WBC 15.7 H, RBC 3.62 L, Hgb 10.7 L, Hct 32.4 L, MCV 89.5, MCH 29.6, MCHC 33.0, RDW Std Deviation 44.8 H, RDW Coeff of Sea 13.7, Plt Count 239, MPV 10.8, Neut % (Auto) Not Reportable 06/17/22 04:52: Sodium 133 L, Potassium 4.2, Chloride 100, Carbon Dioxide 25.0, Anion Gap 8, BUN 46 H, Creatinine 2.37 H, Estim Creat Clear Calc 19.44, Est GFR (MDRD) Af Amer 34 L, Est GFR (MDRD) Non-Af 28 L, BUN/Creatinine Ratio 19.4, Glucose 327 H, Calcium 8.4 L 06/17/22 05:06: POC Glucose 314 H Micro: Microbiology 06/15/22 10:25 Nasal Secretion SARS-CoV-2 & FLU Antigen (Rapid) - Final Rhythm Strip Rhythm Strip: Sinus Tach Rate: 116 Ectopy: None Physical Exam Const alert and no apparent distress Neck no lymphadenopathy Resp normal respiratory effort, no retractions and no use of accessory muscles Cardio regular rate, regular rhythm, S1 normal heart sound and S2 normal heart sound GI normal to inspection, nondistended, normoactive bowel sounds, soft to palpation and non-tender Extremity Extremity Narrative: bilateral knees TTP w/o warmth or effusion Assessment & Plan Assessment/Plan (1) Polymyalgia rheumatica: PLAN: elevated ESR and CRP. steroid initiated and continue indefinitely rheumatologic studies ordered and pending follow up rheumatology as outpt. (2) Generalized weakness: PLAN: Seen by therapy and patient was maximum assistance with much of his activities. Patient unsafe to go home and will require longterm facility before transitioning back to home. (3) Adult failure to thrive: PLAN: PT OT eval and treat unable to care for him likely will require SNF. bilateral knee pain. check xrays (4) Pseudohyponatremia: PLAN: -Related to hyperglycemia -Corrected sodium is 136.38 no additional work up at this time. (5) Diabetes: QUALIFIERS: Diabetes mellitus complication status: with other specified complication Diabetes mellitus long-term insulin use: without long-term use Diabetes mellitus type: type 2 Qualified Code(s): E11.69 - Type 2 diabetes mellitus with other specified complication PLAN: type 2 a1c 7.1 high before steroids Increase glargine from 10-20. Blood sugar still elevated. Increase glargine to 25 and scheduled NovoLog. PLAN: Plan Chronic stable conditions: Hypothyroidism -Continue home levothyroxine -Patient did have TSH performed at his last hospitalization in April and it was within normal range -No need to repeat TSH at this time Hypertension -Continue home metoprolol Gout -Continue home colchicine--> need low-dose because of his renal function at baseline -We will check uric acid with current pain -We will likely start steroids if uric acid elevated CKD stage IIIb -Avoid nephrotoxins -Current serum creatinine is 1.95 and appears to be in his baseline range of 1.7-2.0 -Had a retroperitoneal ultrasound done at his last visit which did not show any acute issues DVT prophylaxis -Heparin 3 times daily -SCDs CODE STATUS -DNR CCA no ET tube as per discussion with he and his on admission Disposition: To longterm facility pending insurance authorization [facility] pt's at beside. Charges/Coding Visit Charges Inpatient E&M: 00023 Subs Hosp L2
[2022-06-17 07:09] LABS: Lymphocyte 6 % (19-41); Metamyelocyte 1 % (0-1); Monocyte 15 % (0-10); Myelocyte 1 % (0-0); Neutrophil-Band 3 % (0-5); Neutrophil-Segmented 74 % (47-70); Platelet Estimate ADEQUATE (ADEQ); Total Cells Counted 100 (MANUAL DIFF)
[2022-06-17 07:10] LABS: Absolute Lymphocyte Count 0.94 X10^3/uL (0.83-4.51); Absolute Neutrophil Count 12.1 X10^3/uL (2.0-7.7); Lymphocyte # 0.94 X10^3/ul (0.83-4.51); Neutrophil # 12.08 X10^3/uL (2.7-7.7); Red Cell Morphology NORM C+C NORMAL (NORM C&C)
--- NOTE | 2022-06-17 07:22 | CASEMGMT ---
Social Work SW received notification from Libra at [facility] via [facility] that the PT/OT/VARNISH BLENDER evaluations did not come through. SW resent them via [facility]. Should they not go through again, DARREN will print and fax. ROSLYN Morris
[2022-06-17] MEDS: Pantoprazole Sodium 40 MG Tablet PO (08:32)
[2022-06-17] MEDS: Colchicine 0.6 MG TABLET PO (08:32)
[2022-06-17] MEDS: predniSONE 20 MG Tablet PO (08:32)
[2022-06-17] MEDS: Metoprolol(XL)Succ 50 MG Tablet PO (08:32)
[2022-06-17] MEDS: Glucerna Shake 120 ML LIQUID PO ×4 (08:34→20:06)
--- NOTE | 2022-06-17 11:54 | CASEMGMT ---
Social Work Social Work SW spoke w/, let her know that we are still waiting to hear back from [facility]. SW asked to review the list in the event that [facility] can't take pt. states would like pt to stay here(TCU) but aware there are no beds. SW again asked her to review the list again and come up with another choice in the event [facility] cannot take pt. SW to follow up w/[facility] on Sunday. Should [facility] take pt, precert will be needed from [facility]. SW did also put pt on TCU list in the event pt cannot go to [facility] and a bed opens up in TCU. ROSLYN Morris
[2022-06-17 12:00] LABS: Bedside Glucose 285 mg/dL (74-106)
--- NOTE | 2022-06-17 14:22 | CASEMGMT ---
Pt not present in room. TC to phone to give KEITA form. No answer at this time.
--- NOTE | 2022-06-17 15:45 | RAD_ITS ---
INDICATION: pain EXAMINATION/TECHNIQUE: X-RAY - RIGHT XR Knee 1 or 2 Views 2 VIEWS COMPARISON: None. FINDINGS: SOFT TISSUES: No soft tissue swelling or gas. No radiopaque foreign body. BONES/JOINTS: No acute fracture or subluxation.. Normal alignment. Narrowed medial compartment of the joint and patellofemoral joint space.. No sclerotic or destructive changes observed. RAD/Knee 1 or 2 Views IMPRESSION: Degenerative changes. No acute fracture or other significant bony pathology Electronically Signed: Chandan Boss MD at 21:47 EST ,
--- NOTE | 2022-06-17 15:45 | RAD_ITS ---
INDICATION: knee pain EXAMINATION/TECHNIQUE: X-RAY - LEFT XR Knee 1 or 2 Views 2 VIEWS COMPARISON: None. FINDINGS: SOFT TISSUES: No soft tissue swelling or gas. No radiopaque foreign body. BONES/JOINTS: No acute fracture or subluxation.. Normal alignment. Mild narrowing of the medial compartment of the joint. Small spur arising from the upper pole of the patella No sclerotic or destructive changes observed. RAD/Knee 1 or 2 Views IMPRESSION: Mild degenerative change. No acute fracture or other significant bony pathology Electronically Signed: Chandan Boss MD at 16:14 EST ,
[2022-06-17 16:41] LABS: Bedside Glucose 263 mg/dL (74-106)
[2022-06-17 19:52] LABS: CCP IgG Antibodies 1 units (0-19)
[2022-06-17] MEDS: Acetaminophen 500 MG Tablet PO (20:05)
[2022-06-17] MEDS: Senna/Docusate Sodium 1 Tablet 2 TABLET PO (20:05)
[2022-06-17] MEDS: Insulin Glargine-YFGN 100 UNIT/ML Pen 25 UNIT SC (22:40)
[2022-06-17 23:00] LABS: Bedside Glucose 383 mg/dL (74-106)
[2022-06-18] VITALS (7 sets, daily range): BP systolic 120–148; BP diastolic 69–89; PULSE 74–84; RESP 16–18; TEMP 36.3–36.6; O2SAT 98–100
[2022-06-18 05:18] LABS: Hematocrit 30.9 % (40-54); Hemoglobin 10.5 g/dL (13.0-16.5); Mean Corpuscular Hgb 30.5 pg (27.0-32.0); Mean Corpuscular Volume 89.8 fL (80-94); Mean Platelet Vol. 10.7 fl (6.2-12.0); POSITIVE COUNT YES; POSITIVE MORPHOLOGY YES; Platelet Count 250 K/mm3 (150-450); RBC Distribution Width CV 13.7 % (11.6-14.6); RBC Distribution Width SD 45.1 fl (35.1-43.9); Red Blood Count 3.44 M/mm3 (4.6-6.2); White Blood Count 13.7 K/mm3 (4.4-11.0)
[2022-06-18 06:28] LABS: Anion Gap 10 (5-15); BUN 51 mg/dL (7-18); BUN/Creat Ratio 24.6 RATIO (10-20); Chloride 99 mmol/L (98-107); Creatinine, Serum 2.07 mg/dL (0.70-1.30); EST Glomerular Filtration Rate 32 mL/min (>60); Est Glom Filt Rate - Afr Amer 39 mL/min (>60); Estimated Creatinine Clearance 22.26 ml/min; Glucose 294 mg/dL (74-106); Potassium 4.2 mmol/L (3.5-5.1); Sodium Level 132 mmol/L (136-145)
[2022-06-18] MEDS: Levothyroxine 100 MCG Tablet PO (06:36)
[2022-06-18] MEDS: Heparin Injection (Vial) 5,000 UNIT/ML VIAL 5000 UNIT SC ×3 (06:36→20:37)
[2022-06-18] MEDS: Acetaminophen 500 MG Tablet PO ×2 (06:43→20:41)
[2022-06-18 06:46] LABS: Differential Indicated MANUAL DIFF
[2022-06-18 06:48] LABS: Basophil 1 % (0-1); Lymphocyte 9 % (19-41); Metamyelocyte 1 % (0-1); Monocyte 10 % (0-10); Myelocyte 2 % (0-0); Neutrophil-Segmented 77 % (47-70); Platelet Estimate ADEQUATE (ADEQ); Total Cells Counted 100 (MANUAL DIFF)
[2022-06-18 06:49] LABS: Red Cell Morphology NORM C+C NORMAL (NORM C&C)
[2022-06-18 06:50] LABS: Absolute Neutrophil Count 10.5 X10^3/uL (2.0-7.7); Neutrophil # 10.54 X10^3/uL (2.7-7.7)
[2022-06-18 06:51] LABS: Absolute Lymphocyte Count 1.23 X10^3/uL (0.83-4.51); Lymphocyte # 1.23 X10^3/ul (0.83-4.51)
[2022-06-18 07:00] LABS: Bedside Glucose 253 mg/dL (74-106)
[2022-06-18] MEDS: Insulin Lispro 100 UNIT/ML INSULN.PEN SC ×5 (07:50→16:47)
[2022-06-18] MEDS: predniSONE 20 MG Tablet PO (07:52)
[2022-06-18] MEDS: Pantoprazole Sodium 40 MG Tablet PO (07:52)
[2022-06-18] MEDS: Metoprolol(XL)Succ 50 MG Tablet PO (07:52)
[2022-06-18] MEDS: Colchicine 0.6 MG TABLET PO (07:52)
--- NOTE | 2022-06-18 08:11 | PN.HOSP_ITS ---
Subjective Subjective Knees feel better. Objective Data Objective Data Vital Signs: Vital Signs Temp Pulse Resp BP Pulse Ox O2 Del Method 36.3 C L 80 16 120/69 98 Room Air 06/18/22 05:00 06/18/22 07:52 06/18/22 05:00 06/18/22 05:00 06/18/22 05:00 06/18/22 05:00 Oxygen Delivery Method Room Air Weight: 66.814 kg Body Mass Index (BMI) 23.8 Intake & Output: Intake and Output for Last 24 Hours 06/16/22 06/17/22 06/18/22 23:59 23:59 23:59 Intake Total 1424 / 1424 1560 / 1560 Output Total 800 / 800 1100 / 1100 200 / 200 Balance 624 / 624 460 / 460 -200 / -200 Medical Nutrition Assessment Dietitian: Malnutrition Criteria Met Start: 06/16/22 14:05 Freq: Status: Active Protocol: Document 06/16/22 14:05 (Rec: 06/16/22 14:05 [id number]) Nutrition Malnutrition Evidence of Malnutrition Exists Yes Malnutrition (severe): Acute Illness/Injury Evidenced By Suboptimal Energy Intake ( Severe),Weight Loss (Severe) Clinical Problem Acute Disease or Injury Related Malnutrition Etiology severe, acute malnutrition related to inadequate energy intake Signs/Symptoms as evidenced by unintentional wt loss of 7.7#/5% < 1 month; estimated PO intake meeting < 50% of estimated energy needs > 5 months Status Active Problem Recommendation Dietitian Recommendations/Changes Continue 1999 calorie controlled, consistent CHO diet as tolerated- texture/ consistency modifications per FORESTRY LABORER. Will liberlize diet if PO intake further declines. Will adjust ONS to 120mL Glucerna 4x/day w/ medpass for additional calories/protein if consumed. Lab / Micro Data Result Diagrams: 06/18/22 04:38 06/18/22 04:38 Labs: Laboratory Results - last 24 hr 06/16/22 04:24: Cycl Citrul Peptide IgG 1 06/17/22 11:39: POC Glucose 285 H 06/17/22 16:08: POC Glucose 263 H 06/17/22 22:39: POC Glucose 383 H 06/18/22 04:38: WBC 13.7 H, RBC 3.44 L, Hgb 10.5 L, Hct 30.9 L, MCV 89.8, MCH 30.5, MCHC 34.0, RDW Std Deviation 45.1 H, RDW Coeff of Sea 13.7, Plt Count 250, MPV 10.7, Neut % (Auto) Not Reportable, Absolute Neuts (auto) 10.5 H, Absolute Lymphs (auto) 1.23, Total Counted 100, Neutrophils % (Manual) 77 H, Lymphocytes % (Manual) 9 L, Monocytes % (Manual) 10, Basophils % (Manual) 1, Metamyelocytes % 1, Myelocytes % 2 H, Diff Path Review October, Platelet Estimate ADEQUATE, RBC Morphology NORM C+C 06/18/22 04:38: Sodium 132 L, Potassium 4.2, Chloride 99, Carbon Dioxide 23.0, Anion Gap 10, BUN 51 H, Creatinine 2.07 H, Estim Creat Clear Calc 22.26, Est GFR (MDRD) Af Amer 39 L, Est GFR (MDRD) Non-Af 32 L, BUN/Creatinine Ratio 24.6 H, Glucose 294 H, Calcium 8.0 L 06/18/22 06:39: POC Glucose 253 H Micro: Microbiology 06/15/22 10:25 Nasal Secretion SARS-CoV-2 & FLU Antigen (Rapid) - Final Radiography Diagnostic Testing: Radiology Impression Knee X-Ray 06/17/22 15:45 IMPRESSION: Mild degenerative change. No acute fracture or other significant bony pathology Electronically Signed: Chandan Boss MD at 16:14 EST Reading Location ID and State: [facility] / [place] , Service support , Knee X-Ray 06/17/22 15:45 IMPRESSION: Degenerative changes. No acute fracture or other significant bony pathology Electronically Signed: Chandan Boss MD at 21:47 EST , Rhythm Strip Rhythm Strip: Sinus Tach Rate: 116 Ectopy: None Physical Exam Const alert and oriented x3 Constitutional Narrative: up in chair Psych affect normal Assessment & Plan Assessment/Plan (1) Polymyalgia rheumatica: PLAN: elevated ESR and CRP. steroid initiated and continue indefinitely rheumatologic studies ordered and pending follow up rheumatology as outpt. (2) Generalized weakness: PLAN: Seen by therapy and patient was maximum assistance with much of his activities. Patient unsafe to go home and will require assisted facility before t ransitioning back to home. Knee xrays show degenerative changes. (3) Adult failure to thrive: PLAN: PT OT eval and treat unable to care for him likely will require SNF. bilateral knee pain. check xrays (4) Pseudohyponatremia: PLAN: -Related to hyperglycemia -Corrected sodium is 136.38 no additional work up at this time. (5) Diabetes: QUALIFIERS: Diabetes mellitus complication status: with other specified complication Diabetes mellitus chcf insulin use: without terminal supervisor use Diabetes mellitus type: type 2 Qualified Code(s): E11.69 - Type 2 diabetes mellitus with other specified complication PLAN: type 2 a1c 7.1 high before steroids increase glargine to 35. PLAN: Plan Chronic stable conditions: Hypothyroidism -Continue home levothyroxine -Patient did have TSH performed at his last hospitalization in April and it was within normal range -No need to repeat TSH at this time Hypertension -Continue home metoprolol Gout -Continue home colchicine--> need low-dose because of his renal function at baseline -We will check uric acid with current pain -We will likely start steroids if uric acid elevated CKD stage IIIb -Avoid nephrotoxins -Current serum creatinine is 1.95 and appears to be in his baseline range of 1.7-2.0 -Had a retroperitoneal ultrasound done at his last visit which did not show any acute issues DVT prophylaxis -Heparin 3 times daily -SCDs CODE STATUS -DNR CCA no ET tube as per discussion with he and his on admission Disposition: To assisted facility pending insurance authorization Charges/Coding Visit Charges Inpatient E&M: 42015 [facility] Hosp L1
[2022-06-18] MEDS: Glucerna Shake 120 ML LIQUID PO ×2 (09:12→20:48)
[2022-06-18] MEDS: Senna/Docusate Sodium 1 Tablet 2 TABLET PO (12:24)
[2022-06-18 12:25] LABS: Bedside Glucose 137 mg/dL (74-106)
[2022-06-18 17:11] LABS: Bedside Glucose 307 mg/dL (74-106)
[2022-06-18] MEDS: Donepezil HCl 5 MG Tablet PO (20:37)
[2022-06-18] MEDS: Insulin Glargine-YFGN 100 UNIT/ML Pen 35 UNIT SC (22:39)
[2022-06-18 23:05] LABS: Bedside Glucose 357 mg/dL (74-106)
[2022-06-19 03:00] VITALS: BP 152/93; PULSE 78; PULSE 84; RESP 16; TEMP 36.6; O2SAT 98
[2022-06-19] MEDS: Levothyroxine 100 MCG Tablet PO (05:05)
[2022-06-19] MEDS: Heparin Injection (Vial) 5,000 UNIT/ML VIAL 5000 UNIT SC (05:05)
[2022-06-19 06:05] LABS: Hematocrit 37.7 % (40-54); Hemoglobin 12.6 g/dL (13.0-16.5); Mean Corp Hgb Conc 33.4 g/dL (32-36); Mean Corpuscular Hgb 29.7 pg (27.0-32.0); Mean Corpuscular Volume 88.9 fL (80-94); Mean Platelet Vol. 10.8 fl (6.2-12.0); POSITIVE COUNT YES; POSITIVE MORPHOLOGY YES; Platelet Count 346 K/mm3 (150-450); RBC Distribution Width CV 13.5 % (11.6-14.6); RBC Distribution Width SD 44.7 fl (35.1-43.9); Red Blood Count 4.24 M/mm3 (4.6-6.2)
[2022-06-19 06:08] LABS: Differential Indicated MANUAL DIFF
[2022-06-19] MEDS: Acetaminophen 500 MG Tablet PO (06:12)
[2022-06-19 06:39] LABS: Anion Gap 12 (5-15); BUN 49 mg/dL (7-18); BUN/Creat Ratio 23.1 RATIO (10-20); Calcium,Total 8.8 mg/dL (8.5-10.1); Chloride 101 mmol/L (98-107); Creatinine, Serum 2.12 mg/dL (0.70-1.30); EST Glomerular Filtration Rate 32 mL/min (>60); Est Glom Filt Rate - Afr Amer 38 mL/min (>60); Estimated Creatinine Clearance 21.73 ml/min; Glucose 272 mg/dL (74-106); Potassium 4.1 mmol/L (3.5-5.1); Sodium Level 135 mmol/L (136-145)
[2022-06-19] MEDS: Insulin Lispro 100 UNIT/ML INSULN.PEN SC ×4 (06:41→11:58)
[2022-06-19 07:25] LABS: Bedside Glucose 253 mg/dL (74-106)
--- NOTE | 2022-06-19 07:28 | PN.HOSP_ITS ---
Subjective Subjective Patient is an 87-year-old gentleman admitted with physical deconditioning. Plan is for patient to be transferred to intermediate facility pending insurance approval Objective Data Objective Data Vital Signs: Vital Signs Temp Pulse Resp BP Pulse Ox O2 Del Method 97.8 F 84 16 152/93 H 98 Room Air 06/19/22 03:00 06/19/22 03:00 06/19/22 03:00 06/19/22 03:00 06/19/22 03:00 06/19/22 03:00 Oxygen Delivery Method Room Air Weight: 66.814 kg Body Mass Index (BMI) 23.8 Intake & Output: Intake and Output for Last 24 Hours 06/17/22 06/18/22 06/19/22 23:59 23:59 23:59 Intake Total 1560 / 1560 530 / 530 Output Total 1100 / 1100 500 / 500 300 / 300 Balance 460 / 460 30 / 30 -300 / -300 Medical Nutrition Assessment Dietitian: Malnutrition Criteria Met Start: 06/16/22 14:05 Freq: Status: Active Protocol: Document 06/16/22 14:05 (Rec: 06/16/22 14:05 [id number]) Nutrition Malnutrition Evidence of Malnutrition Exists Yes Malnutrition (severe): Acute Illness/Injury Evidenced By Suboptimal Energy Intake ( Severe),Weight Loss (Severe) Clinical Problem Acute Disease or Injury Related Malnutrition Etiology severe, acute malnutrition related to inadequate energy intake Signs/Symptoms as evidenced by unintentional wt loss of 7.7#/5% < 1 month; estimated PO intake meeting < 50% of estimated energy needs > 5 months Status Active Problem Recommendation Dietitian Recommendations/Changes Continue 1999 calorie controlled, consistent CHO diet as tolerated- texture/ consistency modifications per PHYSICIAN SUPPORT COORDINATOR. Will liberlize diet if PO intake further declines. Will adjust ONS to 120mL Glucerna 4x/day w/ medpass for additional calories/protein if consumed. Lab / Micro Data Result Diagrams: 06/19/22 05:18 06/19/22 05:18 Labs: Laboratory Results - last 24 hr 06/18/22 11:40: POC Glucose 137 H 06/18/22 16:43: POC Glucose 307 H 06/18/22 22:37: POC Glucose 357 H 06/19/22 05:18: WBC 17.0 H, RBC 4.24 L, Hgb 12.6 L, Hct 37.7 L, MCV 88.9, MCH 29.7, MCHC 33.4, RDW Std Deviation 44.7 H, RDW Coeff of Sea 13.5, Plt Count 346, MPV 10.8, Neut % (Auto) Not Reportable 06/19/22 05:18: Sodium 135 L, Potassium 4.1, Chloride 101, Carbon Dioxide 22.0, Anion Gap 12, BUN 49 H, Creatinine 2.12 H, Estim Creat Clear Calc 21.73, Est GFR (MDRD) Af Amer 38 L, Est GFR (MDRD) Non-Af 32 L, BUN/Creatinine Ratio 23.1 H, Gl ucose 272 H, Calcium 8.8 06/19/22 06:39: POC Glucose 253 H Micro: Microbiology 06/15/22 10:25 Nasal Secretion SARS-CoV-2 & FLU Antigen (Rapid) - Final Rhythm Strip Rhythm Strip: Sinus Tach Rate: 116 Ectopy: None Physical Exam Narrative GENERAL: cooperative HEENT: Atraumatic; normocephalic EYES; Anicteric, Normal Conjunctiva NECK; supple, normal thyroid, RESPIRATORY: Diminished to auscultation CARDIOVASCULAR: Regular S1 S2, GI: soft, normoactive bowel sounds, : No Renal angle tenderness; EXTREMITIES: No edema, no clubbing, MUSCULOSKELETAL: no muscle wasting NEURO: Awake; no lateralizing signs. SKIN: No Rash PSYCH; Flat affect Assessment & Plan Assessment/Plan (1) Polymyalgia rheumatica: PLAN: Plan Patient is an 87-year-old gentleman admitted with physical deconditioning. Plan is for patient to be transferred to intermediate facility pending insurance approval 1. Physical deconditioning - Requested for PT OT eval and social worker psychiatric to assist with discharge planning 2. Hypertension - Blood pressure controlled, home medications continued with dose adjustment as needed 3. Chronic kidney disease stage IIIb ? Kidney function at baseline, repeated BMP in a.m. for monitoring 4. Polymyalgia rheumatica ? Patient started on prednisone response response to therapy being monitored with patient's pain level 5. Diabetes mellitus type 2 ? Patient is on metformin held please on long-acting insulin glargine, also placed on Accu-Cheks before meals and at bedtime with sliding scale insulin coverage 6. Hypothyroidism ? Patient is on levothyroxine 100 mcg daily did continue 7. Essential hypertension ? Patient is on metoprolol did continue 8. GERD ? Patient is on Protonix 40 mg continue 9. DVT prophylaxis ? SC heparin ? Time spent on patient; 35 minutes Charges/Coding Visit Charges Inpatient E&M: 87793 Subs Hosp L2
[2022-06-19] MEDS: predniSONE 20 MG Tablet PO (08:05)
[2022-06-19 08:15] VITALS: PULSE 71
[2022-06-19] MEDS: Glucerna Shake 120 ML LIQUID PO (08:15)
[2022-06-19] MEDS: Metoprolol(XL)Succ 50 MG Tablet PO (08:15)
[2022-06-19] MEDS: Pantoprazole Sodium 40 MG Tablet PO (08:15)
[2022-06-19] MEDS: Colchicine 0.6 MG TABLET PO (08:16)
[2022-06-19 08:46] LABS: Lymphocyte 10 % (19-41); Metamyelocyte 1 % (0-1); Monocyte 6 % (0-10); Myelocyte 3 % (0-0); Neutrophil-Segmented 80 % (47-70); Platelet Estimate ADEQUATE (ADEQ); Red Cell Morphology NORM C+C NORMAL (NORM C&C); Total Cells Counted 100 (MANUAL DIFF)
[2022-06-19 08:47] LABS: Absolute Neutrophil Count 13.6 X10^3/uL (2.0-7.7)
[2022-06-19 09:00] VITALS: BP 105/63; PULSE 71; RESP 16; TEMP 36.4; O2SAT 99
--- NOTE | 2022-06-19 10:22 | CASEMGMT ---
Addendum entered by Audrey Prieto 06/19/22 11:19: Social Work Return call from [facility] and [facility] has been given with Auth#[id number]. Physician notified and pt ready for discharge today. Pt and updated. Message sent to [facility] via [employer]. Plan: [facility] FELIPE Landeros Original Note: Social Work SW spoke with [facility] and they are able to accept pt. SW faxed referral to insurance requesting preauthorization. VM left with Stephanie at [facility]. DARREN met with pt to update on discharge plan. Pt with some confusion. With permission, phone call to pt and updated. expressing understanding and agreeement with discharge plan. Plan: [facility], pending precert FEL[facility] Landeros
[2022-06-19 10:57] LABS: Pathologist Review Reviewed
[2022-06-19 11:05] LABS: Pathologist Review Reviewed
--- NOTE | 2022-06-19 11:28 | TREXTCAR_ITS ---
Diet Diet Order/Speech Therapy: 06/15/22 16:22 Diet: Consistent Carb - Calorie Controlled Food consistency:: Soft & Bite Sized Liquid Consistency:: Regular/Thin Diet Comments: TOTAL FEED, ASSIST NEEDED. GROUND MEATS How many daily calories?: 1999 calorie Therapies Physical Therapy: Eval and Treat Occupational Therapy: Eval and Treat Speech Therapy: Eval and Treat Problem/Diagnosis (1) Polymyalgia rheumatica: Status: Acute Code(s): M35.3 - Polymyalgia rheumatica Plan Patient is an 87-year-old gentleman admitted with physical deconditioning. Plan is for patient to be transferred to alf facility pending insurance approval 1. Physical deconditioning - Requested for PT OT eval and social work program coordinator to assist with discharge planning 2. Hypertension - Blood pressure controlled, home medications continued with dose adjustment as needed 3. Chronic kidney disease stage IIIb ? Kidney function at baseline, repeated BMP in a.m. for monitoring 4. Polymyalgia rheumatica ? Patient started on prednisone response response to therapy being monitored with patient's pain level 5. Diabetes mellitus type 2 ? Patient is on metformin held please on long-acting insulin glargine, also placed on Accu-Cheks before meals and at bedtime with sliding scale insulin coverage 6. Hypothyroidism ? Patient is on levothyroxine 100 mcg daily did continue 7. Essential hypertension ? Patient is on metoprolol did continue 8. GERD ? Patient is on Protonix 40 mg continue 9. DVT prophylaxis ? SC heparin ? Time spent on patient; 35 minutes Allergies/Procedures Done in Hospital Allergies clopidogrel bisulfate [From Plavix] Allergy (Verified 06/15/22 10:10) Rash cyclobenzaprine [Cyclobenzaprine] Allergy (Verified 06/15/22 10:10) Rash fluoxetine HCl [From Prozac] Allergy (Verified 06/15/22 10:10) Rash Type of Care/Length of Stay Estimated LOS: Convalescent Care Less Than 30 days Type of Care Needed: Skilled Rehab Potential: Good Prognosis: Good Additional Orders/Day of Discharge Day of Discharge: 06/19/22 Dietary and Speech Recommendations Dietitian Recommendations/Changes: Continue 1999 calorie controlled, consistent CHO diet as tolerated- texture/consistency modifications per MILLWORK ESTIMATOR. Will liberlize diet if PO intake further declines. Will adjust ONS to 120mL Glucerna 4x/day w/ medpass for additional calories/protein if consumed. Discharge Plan Admission Admit Date/Time: 06/15/22 14:08 Attending Provider: Sy Oneill Primary Care Provider: Mike Salas Consulting Providers: Mery Mitchell ; Panchito Callahan Instructions Patient Instructions: ED Weakness (Uncertain Cause) Additional Instructions / Restrictions: [facility] home physical therapy and Occupational Therapy have been consulted they should be contacting you at home to set up a home evaluation to help him with strengthening expected. Follow-up with your primary care physician Dr. Mike Salas as soon as possible. Return if you are feeling worse. Discharge Orders/Prescriptions Prescriptions: New prednisone 5 mg tablet 5 mg PO BREAKFAST Qty: 0 0RF sennosides-docusate sodium [Stool Softener-Stimulant Laxat] 8.6-50 mg Tablet 2 tab PO BID PRN PRN (Reason: Constipation) Qty: 0 0RF pantoprazole 40 mg Tablet,Delayed Release (Dr/Ec) 40 mg PO DAILY Qty: 0 0RF insulin lispro [Humalog KwikPen Insulin] 100 unit/mL Insulin Pen See Protocol subcut TIDAC Qty: 0 0RF Protocol: 3. Sliding Scale Insulin Med Dosing Condition: 150-189 mg/dl = 1 unit Condition: 190-229 mg/dl = 2 units Condition: 230-269 mg/dl = 3 units Condition: 270-309 mg/dl = 4 units Condition: 310-349 mg/dl = 5 units Condition: 350-399 mg/dl = 6 units Condition: 400-449 mg/dl = 7 units Condition: Greater than 449 call physician Protocol Text: - Use for Total Daily Dose of Insulin 37-55 units - Obsese, infected, or steroid patients MEDIUM DOSING ALGORITHIM insulin glargine-yfgn 100 unit/mL (3 mL) Insulin Pen 35 unit subcut QHS Qty: 0 0RF Glucerna 1.2 Smith 0.06-1.2 gram-kcal/mL Liquid 120 ml PO 4X/DAY Qty: 0 0RF Continued nitroglycerin 0.4 mg tablet, sublingual 0.4 mg SUBLINGUAL Q5M PRN (Reason: Chest Pain) Qty: 25 3RF acetaminophen 500 mg Tablet 500 mg PO Q6H PRN (Reason: Pain) levothyroxine 100 mcg tablet 100 mcg PO DAILY Label Comments: TAKE 1 TABLET BY MOUTH ONCE DAILY metoprolol succinate 50 mg tablet extended release 24 hr 50 mg PO DAILY metformin 500 mg tablet 500 mg PO DAILY Label Comments: TAKE 1 TABLET BY MOUTH ONCE DAILY colchicine 0.6 mg capsule 0.6 mg PO DAILY donepezil 5 mg Tablet 5 mg PO DAILY Referrals / Follow Up: Mike Salas MD [Primary Care Provider] - Within 2 Weeks Disposition Disposition (needs filled in before D/C Order can be placed): Long-Term Facility
--- NOTE | 2022-06-19 11:32 | DS.PCM_ITS ---
Providers Date of Admission: 06/15/22 Date of Discharge: 06/19/22 Primary Care Physician: Dr. Mike Salas MD Reason For Visit: DEBILITY AND GENERALIZED WEAKNESS Diagnosis Discharge Diagnosis (1) Polymyalgia rheumatica: Status: Acute Code(s): M35.3 - Polymyalgia rheumatica Plan Patient is an 87-year-old gentleman admitted with physical deconditioning. Plan is for patient to be transferred to [facility] facility pending insurance approval 1. Physical deconditioning - Requested for PT OT eval and hospice social worker to assist with discharge planning 2. Hypertension - Blood pressure controlled, home medications continued with dose adjustment as needed 3. Chronic kidney disease stage IIIb ? Kidney function at baseline, repeated BMP in a.m. for monitoring 4. Polymyalgia rheumatica ? Patient started on prednisone response response to therapy being monitored with patient's pain level 5. Diabetes mellitus type 2 ? Patient is on metformin held please on long-acting insulin glargine, also placed on Accu-Cheks before meals and at bedtime with sliding scale insulin coverage 6. Hypothyroidism ? Patient is on levothyroxine 100 mcg daily did continue 7. Essential hypertension ? Patient is on metoprolol did continue 8. GERD ? Patient is on Protonix 40 mg continue 9. DVT prophylaxis ? SC heparin ? Time spent on patient; 35 minutes Medications at Discharge Home Medications nitroglycerin 0.4 mg sublingual tablet 0.4 mg sublingual Q5M PRN Chest Pain #25 tabs 11/06/18 acetaminophen 500 mg tablet 500 mg PO Q6H PRN Pain 04/12/22 levothyroxine 100 mcg tablet 100 mcg PO DAILY THYROID 04/12/22 metoprolol succinate 50 mg tablet,extended release 24 hr 50 mg PO DAILY BLOOD PRESSURE 04/12/22 colchicine 0.6 mg capsule 0.6 mg PO DAILY GOUT 06/15/22 metformin 500 mg tablet 500 mg PO DAILY 06/15/22 donepezil 5 mg tablet 5 mg PO DAILY 06/17/22 insulin glargine-yfgn 100 unit/mL (3 mL) subcutaneous pen 35 unit (0.35 mL) subcut QHS #0 mL 06/19/22 insulin lispro 100 unit/mL subcutaneous pen (Humalog KwikPen (U-100) Insulin) See Protocol subcut TIDAC #0 mL 06/19/22 nutrition tx glu intol,lac-free,soy-fiber 0.06 gram-1.2 kcal/mL liquid (Glucerna 1.2 Smith) 120 ml PO 4X/DAY #0 mL 06/19/22 pantoprazole 40 mg tablet,delayed release 40 mg PO DAILY #0 tabs 06/19/22 prednisone 5 mg tablet 5 mg PO BREAKFAST #0 tabs 06/19/22 sennosides 8.6 mg-docusate sodium 50 mg tablet (Stool Softener-Stimulant Laxative) 2 tab PO BID PRN PRN Constipation #0 tabs 06/19/22 Hospital Course Summary of Care Provided Minutes Spent on Discharge: 35 Physical Exam Narrative GENERAL: cooperative HEENT: Atraumatic; normocephalic EYES; Anicteric, Normal Conjunctiva NECK; supple, normal thyroid, RESPIRATORY: Diminished to auscultation CARDIOVASCULAR: Regular S1 S2, GI: soft, normoactive bowel sounds, : No Renal angle tenderness; EXTREMITIES: No edema, no clubbing, MUSCULOSKELETAL: no muscle wasting NEURO: Awake; no lateralizing signs. SKIN: No Rash PSYCH; Flat affect Medical Records Data Medical Nutrition Assessment Dietitian: Malnutrition Criteria Met Start: 06/16/22 14:05 Freq: Status: Active Protocol: Document 06/16/22 14:05 (Rec: 06/16/22 14:05 [id number]) Nutrition Malnutrition Evidence of Malnutrition Exists Yes Malnutrition (severe): Acute Illness/Injury Evidenced By Suboptimal Energy Intake ( Severe),Weight Loss (Severe) Clinical Problem Acute Disease or Injury Related Malnutrition Etiology severe, acute malnutrition related to inadequate energy intake Signs/Symptoms as evidenced by unintentional wt loss of 7.7#/5% < 1 month; estimated PO intake meeting < 50% of estimated energy needs > 5 months Status Active Problem Recommendation Dietitian Recommendations/Changes Continue 1999 calorie controlled, consistent CHO diet as tolerated- 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 Will liberlize diet if PO intake further declines. Will adjust ONS to 120mL Glucerna 4x/day w/ medpass for additional calories/protein if consumed. Weight / BMI Weight Weight: 66.814 kg Body Mass Index (BMI) 23.8 ABG / Lab / Microbiology Data Result Diagrams: 06/19/22 05:18 06/19/22 05:18 Laboratory: Laboratory Results - last 24 hr 06/15/22 10:25: Diff Path Review Reviewed 06/16/22 04:24: Diff Path Review Reviewed 06/18/22 11:40: POC Glucose 137 H 06/18/22 16:43: POC Glucose 307 H 06/18/22 22:37: POC Glucose 357 H 06/19/22 05:18: WBC 17.0 H, RBC 4.24 L, Hgb 12.6 L, Hct 37.7 L, MCV 88.9, MCH 29.7, MCHC 33.4, RDW Std Deviation 44.7 H, RDW Coeff of Sea 13.5, Plt Count 346, MPV 10.8, Neut % (Auto) Not Reportable, Absolute Neuts (auto) 13.6 H, Absolute Lymphs (auto) 1.70, Total Counted 100, Neutrophils % (Manual) 80 H, Lymphocytes % (Manual) 10 L, Monocytes % (Manual) 6, Metamyelocytes % 1, Myelocytes % 3 H, Diff Path Review May foll, Platelet Estimate ADEQUATE, RBC Morphology NORM C+C 06/19/22 05:18: Sodium 135 L, Potassium 4.1, Chloride 101, Carbon Dioxide 22.0, Anion Gap 12, BUN 49 H, Creatinine 2.12 H, Estim Creat Clear Calc 21.73, Est GFR (MDRD) Af Amer 38 L, Est GFR (MDRD) Non-Af 32 L, BUN/Creatinine Ratio 23.1 H, Glucose 272 H, Calcium 8.8 06/19/22 06:39: POC Glucose 253 H Microbiology: Microbiology 06/15/22 10:25 Nasal Secretion SARS-CoV-2 & FLU Antigen (Rapid) - Final D/C Instructions Discharge Diet: 1800 Calorie Control Diet Meaningful Use Info Meaningful Use Diagnoses (Choose all that apply): None applicable Discharge Plan Admission Admit Date/Time: 06/15/22 14:08 Attending Provider: Sy Oneill Primary Care Provider: Mike Salas Consulting Providers: Mery Mitchell ; Panchito Callahan Instructions Patient Instructions: ED Weakness (Uncertain Cause) Additional Instructions / Restrictions: [facility] home physical therapy and Occupational Therapy have been consulted they should be contacting you at home to set up a home evaluation to help him with strengthening expected. Follow-up with your primary care physician Dr. Mike Salas as soon as possible. Return if you are feeling worse. Discharge Orders/Prescriptions Prescriptions: New prednisone 5 mg tablet 5 mg PO BREAKFAST Qty: 0 0RF sennosides-docusate sodium [Stool Softener-Stimulant Laxat] 8.6-50 mg Tablet 2 tab PO BID PRN PRN (Reason: Constipation) Qty: 0 0RF pantoprazole 40 mg Tablet,Delayed Release (Dr/Ec) 40 mg PO DAILY Qty: 0 0RF insulin lispro [Humalog KwikPen Insulin] 100 unit/mL Insulin Pen See Protocol subcut TIDAC Qty: 0 0RF Protocol: 3. Sliding Scale Insulin Med Dosing Condition: 150-189 mg/dl = 1 unit Condition: 190-229 mg/dl = 2 units Condition: 230-269 mg/dl = 3 units Condition: 270-309 mg/dl = 4 units Condition: 310-349 mg/dl = 5 units Condition: 350-399 mg/dl = 6 units Condition: 400-449 mg/dl = 7 units Condition: Greater than 449 call physician Protocol Text: - Use for Total Daily Dose of Insulin 37-55 units - Obsese, infected, or steroid patients MEDIUM DOSING ALGORITHIM insulin glargine-yfgn 100 unit/mL (3 mL) Insulin Pen 35 unit subcut QHS Qty: 0 0RF Glucerna 1.2 Smith 0.06-1.2 gram-kcal/mL Liquid 120 ml PO 4X/DAY Qty: 0 0RF Continued nitroglycerin 0.4 mg tablet, sublingual 0.4 mg SUBLINGUAL Q5M PRN (Reason: Chest Pain) Qty: 25 3RF acetaminophen 500 mg Tablet 500 mg PO Q6H PRN (Reason: Pain) levothyroxine 100 mcg tablet 100 mcg PO DAILY Label Comments: TAKE 1 TABLET BY MOUTH ONCE DAILY metoprolol succinate 50 mg tablet extended release 24 hr 50 mg PO DAILY metformin 500 mg tablet 500 mg PO DAILY Label Comments: TAKE 1 TABLET BY MOUTH ONCE DAILY colchicine 0.6 mg capsule 0.6 mg PO DAILY donepezil 5 mg Tablet 5 mg PO DAILY Referrals / Follow Up: Mike Salas MD [Primary Care Provider] - Within 2 Weeks Disposition Disposition (needs filled in before D/C Order can be placed): [facility] Facility Charges/Coding Visit Charges Inpatient E&M: 11765 Disch Hosp >30min
[2022-06-19 12:20] LABS: Bedside Glucose 177 mg/dL (74-106)
--- NOTE | 2022-06-19 12:41 | CASEMGMT ---
Social Work Pt is ready for discharge to [facility]. PASRR completed in [facility] and sent along with discharge orders and covid results to [facility] via [employer]. 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 SW updated pt and [facility] on discharge plan. Nursing notified. Disposition: [facility], skilled level of care FELIPE Landeros
--- NOTE | 2022-06-19 13:53 | NURSING ---
report called to ana luisa infante and report given to Caitlyn
[2022-06-19 16:23] LABS: ANTINUCLEAR ANTIBODIES DIRECT Negative (Negative)
[2022-06-20 12:02] LABS: Pathologist Review Reviewed
[2022-06-20 12:14] LABS: Pathologist Review Reviewed
[2022-06-20 12:37] LABS: Pathologist Review Reviewed
== END 2022-06-19 13:48 | disposition skilled nursing facility (03) ==
LOC: ED 12:52 → MS2 14:39
PROVIDERS: Admitting Provider Internal Medicine; Emergency Provider Emergency Medicine; PCP Family Medicine; Visit Provider Internal Medicine
DX: M35.3 Polymyalgia rheumatica (principal); E11.22 Type 2 diabetes mellitus with diabetic chronic kidney disease; E11.65 Type 2 diabetes mellitus with hyperglycemia; N18.32 Chronic kidney disease, stage 3b; I25.10 Atherosclerotic heart disease of native coronary artery without angina pectoris; E78.00 Pure hypercholesterolemia, unspecified; R53.81 Other malaise; I12.9 Hypertensive chronic kidney disease with stage 1 through stage 4 chronic kidney disease, or unspecified chronic kidney disease; D64.9 Anemia, unspecified; M79.10 Myalgia, unspecified site; R62.7 Adult failure to thrive; Z79.84 Long term (current) use of oral hypoglycemic drugs; E03.9 Hypothyroidism, unspecified; E87.6 Hypokalemia; Z79.899 Other long term (current) drug therapy; Z79.890 Hormone replacement therapy; K21.9 Gastro-esophageal reflux disease without esophagitis; E87.1 Hypo-osmolality and hyponatremia
CPT/HCPCS: 36415; 71045; 73560; 80048; 80053; 81001; 82550; 82962; 83735; 84100; 84550; 85025; 85652; 86038; 86140; 86200; 86225; 86235; 86431; 87426; 87428; 92526; 92610; 93005; 94668; 96361; 96372; 96374; 96375; 97162; 97166; 97530; 97535; 97802; 99221; 99252; 99285; J7030; A4216; G0378; G0463; J2405

== ENCOUNTER → 2022-09-22 | Outpatient (CLI) | payer MEDICARE, SELFPAY ==
[2022-09-22 15:42] LABS: Anion Gap 4 (5-15); BUN 47 mg/dL (7-18); BUN/Creat Ratio 19.7 RATIO (10-20); Calcium,Total 9.1 mg/dL (8.5-10.1); Chloride 111 mmol/L (98-107); Cholesterol 158 mg/dL (200); Creatinine, Serum 2.38 mg/dL (0.70-1.30); EST Glomerular Filtration Rate 28 mL/min (>60); Est Glom Filt Rate - Afr Amer 33 mL/min (>60); Glucose 125 mg/dL (74-106); High Density Lipoprotein 38 mg/dL; Potassium 4.7 mmol/L (3.5-5.1); Sodium Level 138 mmol/L (136-145); Triglycerides 195 mg/dL; Very Low Density Lipoprotein 39 mg/dL (5-40)
== END | disposition home or self-care (01) ==
LOC: MFPLAB 12:04
PROVIDERS: PCP Family Medicine; Visit Provider Family Medicine
DX: E11.9 Type 2 diabetes mellitus without complications (principal)
CPT/HCPCS: 36415; 80048; 80061

== ENCOUNTER → 2022-11-22 | Outpatient (CLI) | payer MEDICARE, SELFPAY | END | disposition home or self-care (01) | PROVIDERS: PCP Family Medicine; Visit Provider Podiatrist | DX: L97.522 Non-pressure chronic ulcer of other part of left foot with fat layer exposed (principal) | CPT/HCPCS: 87070; 87075; 87077; 87186; 87205 ==

== ENCOUNTER → 2022-11-27 | Outpatient (CLI) | payer MEDICARE, SELFPAY ==
--- NOTE | 2022-11-27 12:54 | ART_ITS ---
Reason For Study: PVD Procedure A bilateral lower extremity continuous wave Doppler with analog waveform analysis,segmental pressures,and ankle brachial indexes without exercise. Patient ambulates with walker, did not walk on treadmill. Left Segmental Pressures Left brachial= 142mmHg. Left posterior tibial artery = 157mmHg. Left dorsalis pedis artery = 173mmHg. The left dorsalis pedis waveforms are triphasic. The left posterior tibial artery waveforms are triphasic. Right Segmental Pressures Right brachial= 140mmHg. Right posterior tibial artery = 159mmHg. Right dorsalis pedis artery = 166mmHg. Right digit = 108 mmHg. The right dorsalis pedis waveforms are triphasic. The right posterior tibial artery waveforms are triphasic. Indices The right ankle brachial index by the dorsalis pedis is 1.17. The right ankle brachial index by the posterior tibial artery is 1.12. The right digital-brachial index is 0.76. The left ankle brachial index by the dorsalis pedis is 1.22. The left ankle brachial index by the posterior tibial artery is 1.11. VL/Lower Ext Art Exam w/o Exercis Interpretation Summary The right dorsalis pedis and posterior tibialis ankle-brachial indices at rest are normal at 1.17 and 1.12 respectively with normal triphasic Doppler waveforms The right digital brachial index is normal at 0.76 The left dorsalis pedis and posterior tibialis ankle-brachial indices at rest a re normal at 1.22 and 1.11 respectively with normal triphasic Doppler waveforms Left digital brachial index is not calculated and the volume pulse recording is moderately depressed suggesting distal small vessel disease. Ordering Physician: Kane Braswell Referring Physician: Mike Salas Performed By: Rose Akins RVT
== END | disposition home or self-care (01) ==
PROVIDERS: PCP Family Medicine; Referring Provider Podiatrist; Visit Provider Podiatrist
DX: I73.9 Peripheral vascular disease, unspecified (principal); L97.522 Non-pressure chronic ulcer of other part of left foot with fat layer exposed
CPT/HCPCS: 93923

== ENCOUNTER → 2022-11-28 | Outpatient (CLI) | payer MEDICARE, SELFPAY ==
--- NOTE | 2022-11-28 10:01 | MRI_ITS ---
EXAM: MR LEFT LOWER EXTREMITY WITHOUT INTRAVENOUS CONTRAST, FOOT CLINICAL INDICATION: CHRONIC OSTEOMYLITIS TECHNIQUE: Multiplanar and multisequence MR images of the left foot without intravenous contrast. COMPARISON: No relevant prior studies available. FINDINGS: Bones: T1 marrow signal alteration involving the first distal phalanx. No other bone marrow signal alterations. Moderate hypertrophic degenerative changes at the first metatarsophalangeal joint without hallux valgus deformity. Soft tissues: Nonspecific dorsal subcutaneous edema involving the forefoot. No organized fluid collections. 2.7 x 1.5 cm low signal solid soft tissue mass along the plantar/medial aspect of the first distal metatarsal may represent tophaceous gout, fibroma or alternatively a giant cell tumor of tendon sheath. Tendons are intact. Tenosynovitis involving the first digit flexor tendon is complex with septations. Plantar aponeurosis unremarkable MRI/Lower Ext/No Jt/w/o IMPRESSION: 1. First distal phalanx osteomyelitis. 2. Tenosynovitis involving the first flexor tendon is complex with septations with infectious tenosynovitis not excluded. 3. 2.7 x 1.5 cm low signal solid soft tissue mass along the plantar/medial aspect of the first distal metatarsal may represent tophaceous gout, fibroma or alternatively a giant cell tumor of tendon sheath. Electronically Signed: Sergey Bee MD at 22:07 EDT ,
== END | disposition home or self-care (01) ==
PROVIDERS: PCP Family Medicine; Referring Provider Podiatrist; Visit Provider Podiatrist
DX: M86.672 Other chronic osteomyelitis, left ankle and foot (principal); M86.671 Other chronic osteomyelitis, right ankle and foot
CPT/HCPCS: 73718

== ENCOUNTER → 2022-12-28 | Outpatient (CLI) | payer MEDICARE, SELFPAY ==
[2022-12-28 15:53] LABS: Absolute Lymphocyte Count 1.25 X10^3/uL (0.83-4.51); Absolute Neutrophil Count 5.8 X10^3/uL (2.0-7.7); Basophil# 0.02 X10^3/uL; Basophil% 0.2 % (0-1); Eosinophil# 0.05 X10^3/uL; Eosinophils% 0.6 % (0-5); Hematocrit 43.4 % (40-54); Hemoglobin 13.6 g/dL (13.0-16.5); Lymphocyte # 1.25 X10^3/ul (0.83-4.51); Lymphocyte % 14.6 % (19-41); Mean Corp Hgb Conc 31.3 g/dL (32-36); Mean Corpuscular Hgb 30.4 pg (27.0-32.0); Mean Corpuscular Volume 97.1 fL (80-94); Mean Platelet Vol. 12.3 fl (6.2-12.0); Monocyte# 1.42 X10^3/uL; Monocyte% 16.6 % (0-10); NRBC Flagged by Analyzer 0 % (0-5); Neutrophil # 5.76 X10^3/uL (2.7-7.7); Neutrophil % 67.1 % (47-70); Platelet Count 148 K/mm3 (150-450); RBC Distribution Width CV 13.9 % (11.6-14.6); RBC Distribution Width SD 49.7 fl (35.1-43.9); Red Blood Count 4.47 M/mm3 (4.6-6.2); White Blood Count 8.6 K/mm3 (4.4-11.0)
[2022-12-28 16:30] LABS: Anion Gap 4 (5-15); BUN 48 mg/dL (7-18); Calcium,Total 8.8 mg/dL (8.5-10.1); Chloride 111 mmol/L (98-107); Creatinine, Serum 2.52 mg/dL (0.70-1.30); EST Glomerular Filtration Rate 26 mL/min (>60); Est Glom Filt Rate - Afr Amer 31 mL/min (>60); Glucose 34 mg/dL (74-106); Magnesium 2.4 mg/dL (1.6-2.6); Potassium 4.3 mmol/L (3.5-5.1); Sodium Level 141 mmol/L (136-145)
== END | disposition home or self-care (01) ==
LOC: MFPLAB 13:56
PROVIDERS: PCP Family Medicine; Visit Provider Family Medicine
DX: R25.1 Tremor, unspecified (principal)
CPT/HCPCS: 36415; 80048; 83735; 85025

== ENCOUNTER 2023-01-09 10:51 | Emergency (ER) | payer MEDICARE, SELFPAY ==
[2023-01-09 10:56] VITALS: BP 122/73; PULSE 66; RESP 14; TEMP 36.6; O2SAT 100; BMI 25.7
[2023-01-09 11:02] VITALS: BMI 25.7
[2023-01-09 11:04] VITALS: BP 122/73; PULSE 68; RESP 19; O2SAT 99
--- NOTE | 2023-01-09 11:12 | EX.ED.DYSGE1 ---
HPI History of Present Illness Chief Complaint: Neuro S/Sx Informant: patient Onset/Context/Timing Onset: Days (3) Context: Gradual Onset Timing: Waxes and wanes Quality: Confused Location: Generalized Worsened by: Nothing Relieved by: Nothing Narrative Narrative: Patient presents with nausea that has been getting worse over the last 3 days. Patient has also been having some confusion and visual hallucinations. states that this has been waxing and waning over the last 3 days. Patient told EMS that he was having some dysuria and urinary frequency. Patient denies any fevers or chills. states that the patient has been having some difficulty with confusion. states that this appears to be worse at night. Patient admits to some nausea but denies any vomiting. Patient denies any chest pain. Patient denies any shortness of breath. [facility] Medical History Ambulates with cane Atherosclerotic heart disease of [place] coronary artery without angina pectoris Brain TIA Chronic kidney disease Coronary atherosclerosis of [place] coronary artery Diabetes Dietary restriction Difficulty chewing Difficulty swallowing Essential hypertension Failure to thrive Gastric reflux Glucosuria Gout Hematuria Hyperlipidemia Hypertension Lumbar strain PONV (postoperative nausea and vomiting) Presence of stent in coronary artery (~10/31/10) Proteinuria Pure hypercholesterolemia Seizures Sleep apnea Thyroid disease Urinary frequency Walker as ambulation aid Weakness Wears glasses Home Medications nitroglycerin 0.4 mg sublingual tablet 0.4 mg sublingual Q5M PRN Chest Pain #25 tabs 11/06/18 [Rx Last Taken Unknown] acetaminophen 500 mg tablet 500 mg PO Q6H PRN Pain 04/12/22 [History Last Taken 06/14/22 19:30] levothyroxine 100 mcg tablet 100 mcg PO DAILY THYROID 04/12/22 [History Last Taken 06/14/22] colchicine (gout) 0.6 mg capsule 0.6 mg PO DAILY GOUT 06/15/22 [History Last Taken 06/12/22] donepezil 5 mg tablet 5 mg PO DAILY 06/17/22 [History Last Taken Unknown] insulin glargine-yfgn 100 unit/mL (3 mL) subcutaneous pen 35 unit (0.35 mL) subcut QHS #0 mL 06/19/22 [Rx Last Taken Unknown] insulin lispro 100 unit/mL subcutaneous pen (Humalog KwikPen (U-100) Insulin) See Protocol subcut TIDAC #0 mL 06/19/22 [Rx Last Taken Unknown] nutrition tx glu intol,lac-free,soy-fiber 0.06 gram-1.2 kcal/mL liquid (Glucerna 1.2 Smith) 120 ml PO 4X/DAY #0 mL 06/19/22 [Rx Last Taken Unknown] prednisone 5 mg tablet 2.5 mg PO BREAKFAST 09/15/22 [History Last Taken Unknown] metoprolol succinate 50 mg tablet,extended release 24 hr See Rx Instructions .Route .COMPLEX #90 TABLETS 10/30/22 [Rx Last Taken Unknown] lorazepam 0.5 mg tablet 0.5 mg PO QHS PRN PRN sleep #10 tabs 01/09/23 [Rx Last Taken Unknown] Allergy/AdvReac Type Severity Reaction Status Date / Time clopidogrel bisulfate Allergy Rash Verified 09/15/22 10:12 [From Plavix] cyclobenzaprine Allergy Rash Verified 09/15/22 10:12 [Cyclobenzaprine] fluoxetine HCl [From Prozac] Allergy Rash Verified 09/15/22 10:12 Family History (Reviewed 09/15/22 @ 10:19 by Arvin Hess ENTERPRISE SERVICES MANAGER, ENTERPRISE SERVICES MANAGER-C) Father Diabetes Mother Diabetes Surgical History H/O percutaneous transluminal coronary angioplasty History of back surgery History of cholecystectomy History of esophageal dilatation (~07/2021) Presence of coronary angioplasty implant and graft (~10/31/10) toenail removed Social History household members: spouse housing: house other: Typically ambulates with a cane however most recently with a walker seconda Smoking Status: Never smoker alcohol intake: never substance use type: does not use caffeine: Yes Type: tea Number of servings: 1 what type of physical activity do you participate in: none ROS ROS ED Constitutional Constitutional ED: Denies chills or fever(s) Eyes Eyes: Denies blurry vision or change in vision ENT ENT ED: Denies rhinorrhea or sore throat Cardiovascular Cardiovascular: Denies chest pain or palpitations Respiratory/Chest Respiratory/Chest: Denies cough or dyspnea Gastrointestinal Gastrointestinal: Reports nausea; Denies vomiting Genitourinary Genitourinary ED: Reports dysuria and urinary frequency; Denies hematuria Musculoskeletal Musculoskeletal: Denies back pain or neck pain Integumentary Denies abscess or rash Neurologic Neurologic: Denies headache(s) or weakness Allergic/Immunologic Allergic/Immunologic ED: Denies mouth swelling or urticaria EXAM Physical Exam Const Vital Signs: 01/09/23 10:56 01/09/23 11:04 01/09/23 13:53 Temperature 98 F Temperature Source Temporal Pulse Rate 66 68 86 Respiratory Rate 14 19 H 20 H Blood Pressure 122/73 H 122/73 H 141/91 H Blood Pressure Mean 89 89 107 Pulse Ox 100 99 97 Oxygen Delivery Method Room Air Room Air Room Air Positive well nourished and well developed General Appearance ED: well developed HEENT Reports moist mucous membranes Neck supple and no JVD Resp normal respiratory effort and clear to auscultation bilaterally Cardio regular rate, regular rhythm and no murmurs GI normal to inspection, nondistended, normoactive bowel sounds and non-tender Palpation: soft Extremity normal to inspection General Extremety ED: Negative for edema or tenderness General Extremity: Negative for edema Neuro oriented x3, CN's II-XII intact bilaterally and no sensory deficits noted Sensorium / Orientation: alert Motor Exam: strength 5/5 throughout Psych mental status grossly normal Skin no rashes or lesions noted MDM MDM MDM Narrative Medical decision making narrative: Differential diagnosis includes urinary tract infection, sepsis, stroke, intracranial bleeding, electrolyte abnormality, anemia, dehydration, and dementia. CT scan of the brain will be obtained to assess for intracranial bleeding and stroke. CBC will be obtained to assess for leukocytosis and anemia. Comprehensive metabolic profile will be obtained to assess for electrolyte abnormality, renal function, and hepatic function. PT was INR and PTT will be obtained to assess for coagulopathy. EKG will be obtained to assess for cardiac dysrhythmia and cardiac ischemia. Chest x-ray will be obtained to assess for pneumonia and pneumothorax. Urinalysis will be obtained to assess for urinary tract infection. Lab Data Attestation: I reviewed the patient's lab results. Lab results narrative: CBC was reviewed. There is a slight anemia with a hemoglobin of 12.8 and hematocrit of 39.5. Platelets were slightly low at 110. Comprehensive metabolic profile was reviewed. BUN was 41 and creatinine was 2.49. These are consistent with prior results. Lactate was reviewed and was normal at 1.8. Urinalysis was reviewed. There is no evidence of urinary tract infection or hematuria. High-sensitivity troponin was reviewed and was normal at 5. Labs: Laboratory Results - last 24 hr 01/09/23 01/09/23 01/09/23 10:32 11:32 11:35 WBC 7.0 RBC 4.18 L Hgb 12.8 L Hct 39.5 L MCV 94.5 H MCH 30.6 MCHC 32.4 RDW Std Deviation 46.8 H RDW Coeff of Sea 13.5 Plt Count 110 L MPV 12.1 H Immature Gran % (Auto) 0.900 Neut % (Auto) 63.9 Lymph % (Auto) 15.8 L Coke % (Auto) 18.3 H Eos % (Auto) 1.0 Baso % (Auto) 0.1 Absolute Neuts (auto) 4.5 Absolute Lymphs (auto) 1.11 Nucleated RBC % 0 PT 13.4 INR 1.0 APTT 31.5 Sodium 138 Potassium 4.1 Chloride 107 Carbon Dioxide 25.0 Anion Gap 6 BUN 41 H Creatinine 2.49 H Estim Creat Clear Calc 19.17 Est GFR (MDRD) Af Amer 32 L Est GFR (MDRD) Non-Af 26 L BUN/Creatinine Ratio 16.5 Glucose 162 H Lactic Acid 1.8 Calcium 8.7 Total Bilirubin 0.60 AST 20 ALT 25 Alkaline Phosphatase 78 Troponin I High Sens 5 Total Protein 7.7 Albumin 3.7 Globulin 4.0 Albumin/Globulin Ratio 0.9 Urine Color Yellow Urine Clarity Clear Urine pH 5.0 Ur Specific [place] 1.020 Urine Protein 500 H Urine Glucose (UA) Normal Urine Ketones Negative Urine Occult Blood 25 H Urine Nitrite Negative Urine Bilirubin Negative Urine Urobilinogen Normal Ur Leukocyte Esterase Negative Urine RBC 0-5 SEEN Urine WBC 0 SEEN Ur Squamous Epith Cells 0 SEEN Urine Bacteria 0 SEEN Urine Mucus 0 SEEN Radiography Diagnostic Testing: Clinical Impression(s) from Imaging Studies Brain CT 01/09/23 11:17 IMPRESSION: Chronic involutional changes of the brain. Electronically Signed: Kelvin Love MD at 12:53 EDT , CT scan of the brain was obtained. There is no acute intracranial abnormality. There are chronic involutional changes noted. This was interpreted by the radiologist and was also independently reviewed by myself. Treatment and Re-Evaluation :: Patient and spouse were advised of his findings. They were advised that this could be the onset of dementia. There is no evidence of sepsis or infection. Patient was given a prescription for a short course of Ativan to take at bedtime. Patient has an appoint with his primary care physician in 2 days. Patient was instructed to follow-up at that time. Patient and spouse were instructed return if worse in any way. Patient and spouse understood and were agreeable with the plan. All questions were answered. Discharge Plan Triage Chief Complaint: Neuro S/Sx ED Provider: Panchito Huff Dx/Rx/DC Orders Clinical Impression: Intermittent confusion, Chronic kidney disease Instructions: ED Confusion Prescriptions: New lorazepam [lorazepam] 0.5 mg tablet 0.5 mg PO QHS PRN PRN (Reason: sleep) Qty: 10 0RF No Action nitroglycerin 0.4 mg tablet, sublingual 0.4 mg SUBLINGUAL Q5M PRN (Reason: Chest Pain) Qty: 25 3RF prednisone 5 mg tablet 2.5 mg PO BREAKFAST acetaminophen 500 mg Tablet 500 mg PO Q6H PRN (Reason: Pain) levothyroxine 100 mcg tablet 100 mcg PO DAILY Patient Comments: TAKE 1 TABLET BY MOUTH ONCE DAILY colchicine (gout) 0.6 mg capsule 0.6 mg PO DAILY donepezil 5 mg Tablet 5 mg PO DAILY insulin lispro [Humalog KwikPen Insulin] 100 unit/mL Insulin Pen See Protocol subcut TIDAC Qty: 0 0RF Protocol: 3. Sliding Scale Insulin Med Dosing Condition: 150-189 mg/dl = 1 unit Condition: 190-229 mg/dl = 2 units Condition: 230-269 mg/dl = 3 units Condition: 270-309 mg/dl = 4 units Condition: 310-349 mg/dl = 5 units Condition: 350-399 mg/dl = 6 units Condition: 400-449 mg/dl = 7 units Condition: Greater than 449 call physician Protocol Text: - Use for Total Daily Dose of Insulin 37-55 units - Obsese, infected, or steroid patients MEDIUM DOSING ALGORITHIM insulin glargine-yfgn 100 unit/mL (3 mL) Insulin Pen 35 unit subcut QHS Qty: 0 0RF Glucerna 1.2 Smith 0.06-1.2 gram-kcal/mL Liquid 120 ml PO 4X/DAY Qty: 0 0RF metoprolol succinate 50 mg tablet extended release 24 hr See Rx Instructions .ROUTE .COMPLEX Qty: 90 3RF Dose Instruction: TAKE 1 TABLET BY MOUTH ONCE DAILY FOR THE HEART. Rx Instructions: TAKE 1 TABLET BY MOUTH ONCE DAILY FOR THE HEART. Primary Care Provider: Mike Salas Referrals: Mike Salas MD [Primary Care Provider] - Keep [facility] appointment Disposition Disposition: Home, Self Care
--- NOTE | 2023-01-09 11:17 | CT_ITS ---
STUDY: CT BRAIN WITHOUT CONTRAST REASON FOR EXAM: Male, 87 years old. Altered mental status RADIATION DOSAGE (If Supplied By Facility): CTDIvol = ( 44.99 ) mGy, DLP = ( 762.36 ) mGycm TECHNIQUE: Transaxial CT imaging of the brain was performed without administration of intravenous contrast material. Individualized dose optimization techniques were used for this CT. COMPARISON: Comparison is made with prior study dated June 06, 2022. FINDINGS: Normal soft tissue structures. Normal calvarium. There is mild cerebral atrophy with widening of the extra-axial spaces and ventricular dilatation. There are areas of decreased attenuation within the white matter tracts of the supratentorial brain, consistent with microvascular disease changes. There are small punctate calcifications of the basal ganglia which are seen in the aging brain as a normal variant. Normal brainstem. Normal cerebellum. There is no intracranial hemorrhage. There are no findings of an acute ischemic infarction. Atherosclerotic calcification of the vertebral arteries and cavernous portions of the internal carotid arteries bilaterally. Normal visualized paranasal sinuses. CT/Brain/Head without Contrast IMPRESSION: Chronic involutional changes of the brain. Electronically Signed: Kelvin Love MD at 12:53 EDT ,
[2023-01-09 11:33] LABS: Absolute Lymphocyte Count 1.11 X10^3/uL (0.83-4.51); Absolute Neutrophil Count 4.5 X10^3/uL (2.0-7.7); Basophil# 0.01 X10^3/uL; Basophil% 0.1 % (0-1); Eosinophil# 0.07 X10^3/uL; Hematocrit 39.5 % (40-54); Hemoglobin 12.8 g/dL (13.0-16.5); Lymphocyte # 1.11 X10^3/ul (0.83-4.51); Lymphocyte % 15.8 % (19-41); Mean Corp Hgb Conc 32.4 g/dL (32-36); Mean Corpuscular Hgb 30.6 pg (27.0-32.0); Mean Corpuscular Volume 94.5 fL (80-94); Mean Platelet Vol. 12.1 fl (6.2-12.0); Monocyte# 1.29 X10^3/uL; Monocyte% 18.3 % (0-10); NRBC Flagged by Analyzer 0 % (0-5); Neutrophil % 63.9 % (47-70); Platelet Count 110 K/mm3 (150-450); RBC Distribution Width CV 13.5 % (11.6-14.6); RBC Distribution Width SD 46.8 fl (35.1-43.9); Red Blood Count 4.18 M/mm3 (4.6-6.2)
[2023-01-09 11:36] LABS: Bacteria 0 SEEN /hpf (None Seen); Mucous, Urine 0 SEEN /hpf (<or=2+); Squamous Epithelial Cells - UA 0 SEEN /hpf (0-5); White Blood Cells 0 SEEN /hpf (0-5)
[2023-01-09 11:39] LABS: Prothrombin Time (Protime)PT. 13.4 SECONDS (11.7-14.9)
[2023-01-09 11:40] LABS: Partial Thromboplast Time 31.5 Seconds (24.1-36.2)
[2023-01-09] MEDS: 0.9% Normal Saline 1,000 ML 1000 ML IV (11:41)
[2023-01-09 11:52] LABS: ALB/GLOB Ratio 0.9 RATIO (0.9-2.4); AST(SGOT) 20 U/L (15-37); Alanine Aminotransfer ALT/SGPT 25 U/L (16-61); Albumin, Serum 3.7 g/dL (3.2-5.0); Alkaline Phosphatase 78 U/L (45-117); Anion Gap 6 (5-15); BUN 41 mg/dL (7-18); BUN/Creat Ratio 16.5 RATIO (10-20); Calcium,Total 8.7 mg/dL (8.5-10.1); Chloride 107 mmol/L (98-107); Creatinine, Serum 2.49 mg/dL (0.70-1.30); EST Glomerular Filtration Rate 26 mL/min (>60); Est Glom Filt Rate - Afr Amer 32 mL/min (>60); Estimated Creatinine Clearance 19.17 ml/min; Glucose 162 mg/dL (74-106); Potassium 4.1 mmol/L (3.5-5.1); Protein, Total 7.7 g/dL (6.4-8.2); Sodium Level 138 mmol/L (136-145); Troponin-I HS 5 pg/mL (3.0-78.0)
[2023-01-09 11:53] LABS: Color, Urine Yellow (Yellow); Glucose, Dipstick Normal (Normal); Ketone-Dipstick Negative (Negative); Leukocyte Esterase-Dipstick Negative /ul (Negative); Nitrite-Dipstick Negative (Negative); Occult Blood-Urine 25 /ul (Negative); Protein-Dipstick 500 mg/dl (Negative); Urine Bilirubin Dipstick Negative (Negative); Urine Clarity Clear (Clear); Urine Urobilinogen Normal (Normal)
[2023-01-09 12:12] LABS: Red Blood Cells-Urine 0-5 SEEN /hpf (0-5)
[2023-01-09 12:13] LABS: Lactic Acid 1.8 mmol/L (0.4-1.9)
[2023-01-09 13:53] VITALS: BP 141/91; PULSE 86; RESP 20; O2SAT 97
== END 2023-01-09 14:27 | disposition home or self-care (01) ==
PROVIDERS: Emergency Provider Emergency Medicine; PCP Family Medicine; Visit Provider Emergency Medicine
DX: R41.0 Disorientation, unspecified (principal); E11.22 Type 2 diabetes mellitus with diabetic chronic kidney disease; Z79.4 Long term (current) use of insulin; I12.9 Hypertensive chronic kidney disease with stage 1 through stage 4 chronic kidney disease, or unspecified chronic kidney disease; N18.9 Chronic kidney disease, unspecified; R44.1 Visual hallucinations; R30.0 Dysuria; R35.0 Frequency of micturition; I25.10 Atherosclerotic heart disease of native coronary artery without angina pectoris; E78.00 Pure hypercholesterolemia, unspecified; Z79.899 Other long term (current) drug therapy
CPT/HCPCS: 36415; 70450; 80053; 81001; 83605; 84484; 85025; 85610; 85730; 87040; 87086; 96360; 96361; 99285; J7030

== ENCOUNTER → 2023-02-09 | Outpatient (CLI) | payer MEDICARE, SELFPAY ==
[2023-02-09 18:25] LABS: Anion Gap 7 (5-15); BUN 46 mg/dL (7-18); BUN/Creat Ratio 20.9 RATIO (10-20); Calcium,Total 8.5 mg/dL (8.5-10.1); Chloride 109 mmol/L (98-107); Cholesterol 140 mg/dL (200); EST Glomerular Filtration Rate 30 mL/min (>60); Est Glom Filt Rate - Afr Amer 37 mL/min (>60); Glucose 177 mg/dL (74-106); High Density Lipoprotein 30 mg/dL; Potassium 5.4 mmol/L (3.5-5.1); Sodium Level 140 mmol/L (136-145); Triglycerides 194 mg/dL; Very Low Density Lipoprotein 39 mg/dL (5-40)
== END | disposition home or self-care (01) ==
LOC: MFPLAB 14:07
PROVIDERS: PCP Family Medicine; Visit Provider Family Medicine
DX: E11.9 Type 2 diabetes mellitus without complications (principal)
CPT/HCPCS: 36415; 80048; 80061

== ENCOUNTER 2023-03-04 18:51 | Inpatient (IN) | payer MEDICARE, SELFPAY ==
[2023-03-04] VITALS (8 sets, daily range): BP systolic 118–153; BP diastolic 59–81; PULSE 70–90; RESP 13–18; TEMP 36.3–36.7; O2SAT 94–100; BMI 25.9; BMI 24.8
--- NOTE | 2023-03-04 18:54 | ED.RN ---
verbal order from Dr. Barbosa to cancel stroke alert at this time. NIH of 0.
--- NOTE | 2023-03-04 18:56 | CT_ITS ---
We are attempting to reach an attending provider to discuss findings. An addendum with communication details will be sent when the communication is complete. INDICATION: Neuro deficit, acute, stroke suspected EXAMINATION: CT BRAIN - CT Head Stroke Protocol W/O Contrast Injection TECHNIQUE: Multiple axial images were obtained of the head without intravenous contrast. A radiation dose optimization technique was used for this scan. IV Contrast dosage and agent: None. COMPARISON: 06/06/2022 FINDINGS: This patient has moderate cortical and central involutional change. Some prominence of the extra-axial space appears similar to prior examination. The ventricular system is patent. Basal ganglia mineralization is seen. Posterior fossa and brainstem show no acute abnormality. There is abnormal low-density in the posterior left temporal lobe image 18 series 2. There is also some low attenuation in the left posterior cerebral periventricular white matter which extends to the cortex however there are some changes in this area on prior CT and findings are presumably chronic and evolution of prior process. Mastoid air cells are clear. Paranasal sinuses are clear. Cataract surgery. No acute orbital abnormality. CT/STROKE Brain/Head without Cont IMPRESSION: No acute hemorrhage detected. Left-sided posterior temporal lobe hypodensity and high parietal hypodensity. These changes could be chronic however acute/subacute process is not excluded particularly at the posterior left temporal region. Consider additional imaging as clinically warranted. Electronically Signed: Grant Sanches MD at 19:13 EDT ,
--- NOTE | 2023-03-04 18:57 | CT_ITS ---
We are attempting to reach an attending provider to discuss findings. An addendum with communication details will be sent when the communication is complete. INDICATION: Neuro deficit, acute, stroke suspected EXAMINATION: CTA head and neck TECHNIQUE: Routine carotid CT angiogram protocol was performed without and with IV contrast. In addition, images were obtained of the [place]. NASCET criteria using the distal ICAs for comparison were used for evaluation of stenoses. 3D reconstructions were reviewed. A radiation dose optimization technique was used for this scan. IV Contrast dosage and agent: 100 cc Isovue-370. COMPARISON: None. FINDINGS: --CTA NECK: AORTIC ARCH AND BRANCHES: Normal anatomy, patent. Origin of left CCA not imaged. RIGHT CCA: No occlusion, significant stenosis or dissection. RIGHT ICA: No occlusion, significant stenosis or dissection. Atherosclerosis at the carotid bulb. LEFT CCA: No occlusion, significant stenosis or dissection. LEFT ICA: No occlusion, significant stenosis or dissection. Atherosclerosis of proximal ICA. RIGHT VERTEBRAL ARTERY: No occlusion, significant stenosis or dissection. Mild distal calcification. LEFT VERTEBRAL ARTERY: No occlusion, significant stenosis or dissection. NECK SOFT TISSUES: Significant cervical spine degenerative change. Multilevel listhesis, spinal canal narrowing and neural foraminal narrowing. --CTA HEAD: --Anterior circulation: ICAs: No significant stenosis at the intracranial/visualized segments. ACAs: No significant stenosis at the visualized segments. ACOM: Present. MCAs: Right MCA appears grossly intact. There is some mild multifocal narrowing at the left MCA image 355 series 2 image 351 series 2. --Posterior circulation: PCOMs: Not well seen. 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 There is mild left P1 atherosclerosis. BASILAR ARTERY: Mild proximal irregularity which may reflect a fenestration coronal image 115 series 605. VERTEBRAL ARTERIES: No significant stenosis at the intradural/visualized segments. No evidence of intracranial aneurysm or vascular malformation. CT/STROKE CTA Head AND Neck W/Con IMPRESSION: No hemodynamically significant stenosis or aneurysmal dilatation is identified. No large vessel occlusion. Electronically Signed: Grant Sanches MD at 19:30 EDT ,
--- NOTE | 2023-03-04 18:58 | EDS_ITS ---
HPI History of Present Illness Chief Complaint: Neuro S/Sx Detail of Chief Complaint: Slurred speech with right-sided facial droop and weakness resolving. Informant: patient and EMS Onset/Context/Timing Onset: Today and Hours Context: Sudden Onset Timing: Continuous Quality and Location: Positive for Right Facial Droop, Right Arm Weakness and Slurred Speech Current Severity: Gone Maximum Severity: Moderate Associated Symptoms Associated Symptoms: Negative for Headache, Nausea, Vomiting or Chest Pain Narrative Narrative: 87-year-old male history of prior TIAs, diabetes, hypertension and seizure disorder. Around 6 PM the night he had onset of right-sided weakness, right- sided facial droop and trouble speaking with slurred speech. That was about an hour ago. His symptoms are resolving. He feels much better. He is brought in by squad. He is reportedly not on any blood thinners. Patient had a blood sugar of 128. Prior similar symptoms: Yes Recent Illness/Hospitalization: No PFSH PFSH Medical History Ambulates with cane Brain TIA Chronic kidney disease Coronary atherosclerosis of [place] coronary artery Cricopharyngeal dysphagia Dementia Essential hypertension Gastric reflux Glucosuria Gout Hyperlipidemia Hypertension Hypothyroidism Polymyalgia rheumatica PONV (postoperative nausea and vomiting) Presence of stent in coronary artery (~10/31/10) Pure hypercholesterolemia Seizures Sleep apnea Thyroid disease Type II diabetes mellitus Walker as ambulation aid Wears glasses Home Medications nitroglycerin 0.4 mg sublingual tablet 0.4 mg sublingual Q5M PRN Chest Pain #25 tabs 11/06/18 [Rx Last Taken Unknown] acetaminophen 500 mg tablet 500 mg PO Q6H PRN Pain 04/12/22 [History Last Taken 06/14/22 19:30] levothyroxine 100 mcg tablet 100 mcg PO DAILY THYROID 04/12/22 [History Last Taken 06/14/22] colchicine (gout) 0.6 mg capsule 0.6 mg PO DAILY GOUT 06/15/22 [History Last Taken 06/12/22] donepezil 5 mg tablet 5 mg PO DAILY 06/17/22 [History Last Taken Unknown] insulin glargine-yfgn 100 unit/mL (3 mL) subcutaneous pen 35 unit (0.35 mL) subcut QHS #0 mL 06/19/22 [Rx Last Taken Unknown] insulin lispro 100 unit/mL subcutaneous pen (Humalog KwikPen (U-100) Insulin) See Protocol subcut TIDAC #0 mL 06/19/22 [Rx Last Taken Unknown] nutrition tx glu intol,lac-free,soy-fiber 0.06 gram-1.2 kcal/mL liquid (Glucerna 1.2 Smith) 120 ml PO 4X/DAY #0 mL 06/19/22 [Rx Last Taken Unknown] prednisone 5 mg tablet 2.5 mg PO BREAKFAST 09/15/22 [History Last Taken Unknown] metoprolol succinate 50 mg tablet,extended release 24 hr See Rx Instructions .Route .COMPLEX #90 TABLETS 10/30/22 [Rx Last Taken Unknown] lorazepam 0.5 mg tablet 0.5 mg PO QHS PRN PRN sleep #10 tabs 01/09/23 [Rx Last Taken Unknown] Allergy/AdvReac Type Severity Reaction Status Date / Time clopidogrel bisulfate Allergy Rash Verified 09/15/22 10:12 [From Plavix] cyclobenzaprine Allergy Rash Verified 09/15/22 10:12 [Cyclobenzaprine] fluoxetine HCl [From Prozac] Allergy Rash Verified 09/15/22 10:12 Family History Father Diabetes Mother Diabetes Surgical History H/O percutaneous transluminal coronary angioplasty History of back surgery History of cholecystectomy History of esophageal dilatation (~07/2021) Presence of coronary angioplasty implant and graft (~10/31/10) toenail removed Social History household members: spouse housing: house other: Typically ambulates with a cane however most recently with a walker seconda Smoking Status: Never smoker alcohol intake: never substance use type: does not use caffeine: Yes Type: tea Number of servings: 1 what type of physical activity do you participate in: none ROS ROS ED ROS Narrative No recent illness. Review of Systems ROS Unobtainable: Denies due to encephalopathy Constitutional Constitutional ED: Denies chills or fever(s) Eyes Eyes: Denies blurry vision ENT ENT ED: Denies ear pain Cardiovascular Cardiovascular: Denies chest pain or palpitations Respiratory/Chest Respiratory/Chest: Denies cough or dyspnea Gastrointestinal Gastrointestinal: Denies abdominal pain Genitourinary Genitourinary ED: Denies dysuria or hematuria Musculoskeletal Musculoskeletal: Denies arthralgias or back pain Integumentary Denies abscess Neurologic Neurologic: Denies headache(s) Psychiatric Psychiatric: Denies anxiety Endocrine Endocrinology: Denies polydipsia Hematologic/Lymphatic Hematologic/Lymphatic: Denies easy bleeding or easy bruising Allergic/Immunologic Allergic/Immunologic ED: Denies mouth swelling or urticaria EXAM Physical Exam Narrative Exam Narrative: 87-year-old male brought in by squad evaluated in the hallway. Signs are stable and afebrile. HEENT exam unremarkable atraumatic. Pupils round reactive light. No facial droop. Normal speech. Neck nontender. Lungs clear to auscultation bilaterally. Heart regular rhythm no murmur. Chest wall nontender. Abdomen soft nontender. Moving all 4 extremities. 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 Dorsi plantarflexion intact. No drift. He is awake and alert. He is answering questions and following commands. His speech is easily understood. Const Vital Signs: 03/04/23 18:52 03/04/23 19:00 03/04/23 18:56 Temperature 98.1 F Temperature Source Temporal Pulse Rate 78 Respiratory Rate 18 Blood Pressure 147/81 H Blood Pressure Mean 103 Pulse Ox 100 Oxygen Delivery Method Room Air Room Air 03/04/23 19:04 03/04/23 19:14 Temperature Temperature Source Pulse Rate 78 90 Respiratory Rate 18 14 Blood Pressure 147/81 H 153/65 H Blood Pressure Mean 103 94 Pulse Ox 100 94 Oxygen Delivery Method Room Air Room Air Positive well nourished and well developed; Negative for obese, cachectic, contractures or unkempt General Appearance ED: well developed and NAD; Negative for unkempt, cachectic or contractures Nutritional Appearance: Negative for cachectic or obese HEENT Reports moist mucous membranes atraumatic; Negative for trauma Nose: Negative for other Eyes PERRL and EOMs intact bilaterally General Eye ED: Negative for pale conjunctiva or scleral icterus Neck no lymphadenopathy, supple and no JVD General: Negative for tenderness Thyroid: Negative for other Chest Wall inspection of chest normal and palpation of chest normal Chest: Negative for other Resp normal respiratory effort and clear to auscultation bilaterally Effort and Inspection: Negative for retractions Auscultation: Negative for rales, rhonchi, wheezes or diminished lung sounds Cardio no murmurs Rate: regular rate Rhythm: regular rhythm GI normal to inspection, nondistended, normoactive bowel sounds, soft to palpation, non-tender, non-distended and no masses Auscultation: normoactive bowel sounds Palpation: Negative for tender or guarding Back/Spine no CVA tenderness General Back: Negative for CVA tenderness Cervical Spine: Negative for cervical spine tenderness Thoracic Spine / Upper Back: Negative for thoracic spinal tenderness Lumbar Spine / Lower Back: Negative for lumbar spinal tenderness Extremity normal to inspection General Extremety ED: Negative for deformity, edema or tenderness General Extremity: Negative for deformity or edema Neuro oriented x3 and CN's II-XII intact bilaterally Sensorium / Orientation: alert, oriented to person, oriented to place and oriented to time; Negative for orientation impaired, confused, lethargic or stuporous Speech: speech normal Motor Exam: strength 5/5 throughout Psych mental status grossly normal Appearance: Negative for unkempt Attitude: No agitated Mood & Affect: Negative for depressed, anxious or tearful Skin no wounds General Skin Exam: Negative for jaundice Lesions: no lesions Rashes: no rashes Trauma: Negative for abrasion or laceration NIHSS NIHSS Initial: 1a Level of Consciousness: 0 1b LOC Questions (Score 2 if aphasic/stupor): 0 1c LOC Commands (Only score 1st attempt): 0 2 Best Gaze (If aphasic, use reflexive mvmts.): 0 3 Visual: 0 4 Facial Palsy: 0 5 Motor Arm Right (UN = amputation/fusion): 0 5 Motor Arm Left: 0 6 Motor Leg Right: 0 6 Motor Leg Left: 0 7 Limb ataxia (Only + if out of proportion): 0 8 Sensory (Aphasia/stupor=0 or 1, coma=2): 0 9 Best Language: 0 10 Dysarthria (mute, coma=2, intubated=UN): 0 11 Extinction and Inattention (only scored if +): 0 Total Score: 0 MDM MDM MDM Narrative Medical decision making narrative: 87-year-old male with symptoms of a stroke that have now resolved. His current NIH is 0. His he presented to EMS with slurred speech, right-sided facial droop and right-sided weakness. History of TIAs and diabetes. Will undergo a stroke work-up including a CTA of his head and neck. He is not any tPA candidate at this time. Repeat exam at 8 PM patient is doing well. Logic exam is normal and unchanged. NIH is 0. He will be admitted as a TIA. I have already spoken to the hospitalist who is also already evaluated the patient and he will be admitted to the PCU. History & Record Review Discussion w/independent historian: Patient Additional record(s) reviewed:: Prior inpatient record, Prior outpatient record, Prior ED visit and Prior labs Lab Data Attestation: I reviewed the patient's lab results. Lab results narrative: White count of 5 H&H 12.4 and 30.8. Platelets 123,000. PT/INR of 14 and 1. PTT of 34. Electrolytes showed gap of 4. BUN and creatinine of 54 and 2.39 consistent with renal insufficiency. Glucose of 116. Troponin 6. CT of his brain without contrast shows chronic changes no acute process. Lesion. CTA of the head and neck shows no significant Labs: Laboratory Results - last 24 hr 03/04/23 19:10 WBC 5.5 RBC 4.12 L Hgb 12.4 L Hct 38.8 L MCV 94.2 H MCH 30.1 MCHC 32.0 RDW Std Deviation 44.8 H RDW Coeff of Sea 12.9 Plt Count 123 L MPV 11.8 Immature Gran % (Auto) 0.900 Neut % (Auto) 50.7 Lymph % (Auto) 23.6 [place] % (Auto) 22.6 H Eos % (Auto) 2.0 Baso % (Auto) 0.2 Absolute Neuts (auto) 2.8 Absolute Lymphs (auto) 1.31 Nucleated RBC % 0 PT 14.4 INR 1.1 APTT 34.0 Sodium 141 Potassium 4.9 Chloride 112 H Carbon Dioxide 25.0 Anion Gap 4 L BUN 54 H Creatinine 2.39 H Estim Creat Clear Calc 19.28 Est GFR (MDRD) Af Amer 33 L Est GFR (MDRD) Non-Af 27 L BUN/Creatinine Ratio 22.6 H Glucose 116 H Calcium 8.0 L Troponin I High Sens 6 Radiography Diagnostic Testing: Clinical Impression(s) from Imaging Studies Brain CT 03/04/23 18:56 IMPRESSION: No acute hemorrhage detected. Left-sided posterior temporal lobe hypodensity and high parietal hypodensity. These changes could be chronic however acute/subacute process is not excluded particularly at the posterior left temporal region. Consider additional imaging as clinically warranted. Electronically Signed: Grant Sanches MD at 19:13 EDT Reading Location ID and State: [facility] / MD Tel , Service support , ADDENDUM: 03/04/23 1922 IMPRESSION: No acute hemorrhage detected. Left-sided posterior temporal lobe hypodensity and high parietal hypodensity. These changes could be chronic however acute/subacute process is not excluded particularly at the posterior left temporal region. Consider additional imaging as clinically warranted. N.B. : The above Results were Read Back by Grant Sanches MD to Chandan Barbosa MD, and understanding confirmed on 03/04/2023 19:15:48 (ET). Electronically Signed: Grant Sanches MD at 19:13 EDT Reading Location ID and State: [facility] / MD Tel , Service support , Head/Neck CTA 03/04/23 18:57 IMPRESSION: No hemodynamically significant stenosis or aneurysmal dilatation is identified. No large vessel occlusion. Electronically Signed: Grant Sanchse MD at 19:30 EDT Reading Location ID and State: [facility] / MD Tel , Service support , ADDENDUM: 03/04/23 1938 IMPRESSION: No hemodynamically significant stenosis or aneurysmal dilatation is identified. No large vessel occlusion. N.B. : The above Results were Read Back by Grant Sanches MD to Chandan Barbosa MD, and understanding confirmed on 03/04/2023 19:31:57 (ET). Electronically Signed: Grant Sanches MD at 19:30 EDT , Rhythm Strip Rhythm Strip: Sinus Rhythm Rate: 90 Ectopy: None EKG Initial EKG: Attestation: I personally reviewed and interpreted this EKG as follows: Interpretation: Sinus Rhythm and No Acute Injury Pattern Comments: Normal sinus rhythm rate of 90 no acute signs of OK or ischemia Discharge Plan Triage Chief Complaint: Neuro S/Sx Other Complaint: Stroke Alert ED Provider: Ray Barbosa Dx/Rx/DC Orders Clinical Impression: Brain TIA, History of hypertension, History of diabetes mellitus Prescriptions: No Action nitroglycerin 0.4 mg tablet, sublingual 0.4 mg SUBLINGUAL Q5M PRN (Reason: Chest Pain) Qty: 25 3RF prednisone 5 mg tablet 2.5 mg PO BREAKFAST acetaminophen 500 mg Tablet 500 mg PO Q6H PRN (Reason: Pain) levothyroxine 100 mcg tablet 100 mcg PO DAILY Patient Comments: TAKE 1 TABLET BY MOUTH ONCE DAILY colchicine (gout) 0.6 mg capsule 0.6 mg PO DAILY donepezil 5 mg Tablet 5 mg PO DAILY insulin lispro [Humalog KwikPen Insulin] 100 unit/mL Insulin Pen See Protocol subcut TIDAC Qty: 0 0RF Protocol: 3. Sliding Scale Insulin Med Dosing Condition: 150-189 mg/dl = 1 unit Condition: 190-229 mg/dl = 2 units Condition: 230-269 mg/dl = 3 units Condition: 270-309 mg/dl = 4 units Condition: 310-349 mg/dl = 5 units Condition: 350-399 mg/dl = 6 units Condition: 400-449 mg/dl = 7 units Condition: Greater than 449 call physician Protocol Text: - Use for Total Daily Dose of Insulin 37-55 units - Obsese, infected, or steroid patients MEDIUM DOSING ALGORITHIM insulin glargine-yfgn 100 unit/mL (3 mL) Insulin Pen 35 unit subcut QHS Qty: 0 0RF Glucerna 1.2 Smith 0.06-1.2 gram-kcal/mL Liquid 120 ml PO 4X/DAY Qty: 0 0RF lorazepam [lorazepam] 0.5 mg tablet 0.5 mg PO QHS PRN PRN (Reason: sleep) Qty: 10 0RF metoprolol succinate 50 mg tablet extended release 24 hr See Rx Instructions .ROUTE .COMPLEX Qty: 90 3RF Dose Instruction: TAKE 1 TABLET BY MOUTH ONCE DAILY FOR THE HEART. Rx Instructions: TAKE 1 TABLET BY MOUTH ONCE DAILY FOR THE HEART. Primary Care Provider: Mike Salas Referrals: Mike Salas MD [Primary Care Provider] - Disposition Disposition: Acute Care Hospital [facility]
[2023-03-04 19:33] LABS: Absolute Lymphocyte Count 1.31 X10^3/uL (0.83-4.51); Absolute Neutrophil Count 2.8 X10^3/uL (2.0-7.7); Basophil# 0.01 X10^3/uL; Basophil% 0.2 % (0-1); Eosinophil# 0.11 X10^3/uL; Hematocrit 38.8 % (40-54); Hemoglobin 12.4 g/dL (13.0-16.5); Lymphocyte # 1.31 X10^3/ul (0.83-4.51); Lymphocyte % 23.6 % (19-41); Mean Corpuscular Hgb 30.1 pg (27.0-32.0); Mean Corpuscular Volume 94.2 fL (80-94); Mean Platelet Vol. 11.8 fl (6.2-12.0); Monocyte# 1.25 X10^3/uL; Monocyte% 22.6 % (0-10); NRBC Flagged by Analyzer 0 % (0-5); Neutrophil # 2.81 X10^3/uL (2.7-7.7); Neutrophil % 50.7 % (47-70); Platelet Count 123 K/mm3 (150-450); RBC Distribution Width CV 12.9 % (11.6-14.6); RBC Distribution Width SD 44.8 fl (35.1-43.9); Red Blood Count 4.12 M/mm3 (4.6-6.2); White Blood Count 5.5 K/mm3 (4.4-11.0)
[2023-03-04 19:35] LABS: International Normalized Ratio 1.1; Prothrombin Time (Protime)PT. 14.4 SECONDS (11.7-14.9)
--- NOTE | 2023-03-04 19:40 | HP.PCM.HOS_ITS ---
HPI - General General Date of Admission: 03/04/23 Date of Service: 03/04/23 Chief Complaint: Transient R sided weakness, R facial droop, slurred speech, aphasia. HPI Narrative The patient is an 87 y/o M w/ PMHx: Dementia unclear type with unclear behavioral disturbance history, PMR, CKD stage IIIb reported prior possibly advancing to IV, Chronic anemia, HTN, HLD, JESSICA, Seizure disorder, CAD s/p PCI JOCELYN ramus 10/31/10, GERD w/ esophageal strictures s/p dilation, Hx TIA, Gout, Diabetes mellitus type II who presents to the [facility] ED on 03/04/23 as a stroke alert with history of onset right-sided facial droop as well as right-sided weakness in addition to aphasia and altered slurred speech with reportedly weakness primarily in the right upper extremity starting at approximately 6 PM on day of presentation with symptoms resolving on route with EMS with NIH stroke scale upon presentation 0. Patient reports patient is improved. Daughter is also present and states that over the last month she has seen her father significantly decline. reports that he primarily uses the restroom but otherwise is not very interactive. Work-up in the ED included T98.1, heart rate 78, BP 147/81, respiratory rate 18, 100% room air, CBC with WBC 5.5, hemoglobin 12.4, MCV 94.2, platelet 123 without marked shift, unremarkable coags, MP with chloride 112, BUN/creatinine 54/2.39, glucose 116, troponin 6, CT of the brain with no acute hemorrhage detected, a left-sided posterior temporal lobe hypodensity and high parietal hypodensity possibly chronic however acute/subacute process not excluded particularly at the posterior left temporal region, CTA head and neck with no significant stenosis or aneurysmal dilatation and no evidence of any large vessel occlusion EKG with sinus rhythm with no acute evidence of ischemia of note most recent CT of the brain prior to current presentation 01/09/2023 reporting areas of decreased attenuation within the white matter tracts of the supratentorial brain consistent with microvascular disease changes as well as small punctate calcifications in the basal ganglia considered a normal aging variants with normal brainstem and normal cerebellum with no acute findings which is very different than the current reported [facility]. [facility] Medical History Ambulates with cane Brain TIA Chronic kidney disease Coronary atherosclerosis of enterprise coronary artery Cricopharyngeal dysphagia Dementia Essential hypertension Gastric reflux Glucosuria Gout Hyperlipidemia Hypertension Hypothyroidism Polymyalgia rheumatica PONV (postoperative nausea and vomiting) Presence of stent in coronary artery (~10/31/10) Pure hypercholesterolemia Seizures Sleep apnea Thyroid disease Type II diabetes mellitus Walker as ambulation aid Wears glasses Home Medications nitroglycerin 0.4 mg sublingual tablet 0.4 mg sublingual Q5M PRN Chest Pain #25 tabs 11/06/18 [Rx Last Taken Unknown] acetaminophen 500 mg tablet 500 mg PO Q6H PRN Pain 04/12/22 [History Last Taken 06/14/22 19:30] levothyroxine 100 mcg tablet 100 mcg PO DAILY THYROID 04/12/22 [History Last Taken 06/14/22] colchicine (gout) 0.6 mg capsule 0.6 mg PO DAILY GOUT 06/15/22 [History Last Taken 06/12/22] donepezil 5 mg tablet 5 mg PO DAILY 06/17/22 [History Last Taken Unknown] insulin glargine-yfgn 100 unit/mL (3 mL) subcutaneous pen 35 unit (0.35 mL) subcut QHS #0 mL 06/19/22 [Rx Last Taken Unknown] insulin lispro 100 unit/mL subcutaneous pen (Humalog KwikPen (U-100) Insulin) See Protocol subcut TIDAC #0 mL 06/19/22 [Rx Last Taken Unknown] nutrition tx glu intol,lac-free,soy-fiber 0.06 gram-1.2 kcal/mL liquid (Glucerna 1.2 Smith) 120 ml PO 4X/DAY #0 mL 06/19/22 [Rx Last Taken Unknown] prednisone 5 mg tablet 2.5 mg PO BREAKFAST 09/15/22 [History Last Taken Unknown] metoprolol succinate 50 mg tablet,extended release 24 hr See Rx Instructions .Route .COMPLEX #90 TABLETS 10/30/22 [Rx Last Taken Unknown] lorazepam 0.5 mg tablet 0.5 mg PO QHS PRN PRN sleep #10 tabs 01/09/23 [Rx Last Taken Unknown] Allergy/AdvReac Type Severity Reaction Status Date / Time clopidogrel bisulfate Allergy Rash Verified 09/15/22 10:12 [From Plavix] cyclobenzaprine Allergy Rash Verified 04/07/23 10:12 [Cyclobenzaprine] fluoxetine HCl [From Prozac] Allergy Rash Verified 09/15/22 10:12 Family History Father Diabetes Mother Diabetes Surgical History H/O percutaneous transluminal coronary angioplasty History of back surgery History of cholecystectomy History of esophageal dilatation (~07/2021) Presence of coronary angioplasty implant and graft (~10/31/10) toenail removed Social History household members: spouse housing: house other: Typically ambulates with a cane however most recently with a walker seconda Smoking Status: Never smoker alcohol intake: never substance use type: does not use caffeine: Yes Type: tea Number of servings: 1 what type of physical activity do you participate in: none ROS ROS Narrative Admission Review of Systems: CONSTITUTIONAL: No weight loss, fever, chills, + weakness or fatigue. HEENT: + Transient right-sided facial droop as noted. Eyes: No visual loss, blurred vision, double vision or yellow sclerae. Ears, Nose, Throat: No hearing loss, sneezing, congestion, runny nose or sore throat. SKIN: No rash or itching, lesions, wounds. CARDIOVASCULAR: No chest pain, chest pressure or chest discomfort, palpitations, edema, orthopnea, syncopal events. RESPIRATORY: No shortness of breath, cough or sputum, wheezing, hemoptysis. GASTROINTESTINAL: No anorexia, nausea, vomiting or diarrhea, abdominal pain, melena, BRBPR. GENITOURINARY: No dysuria, frequency, urgency or retention. NEUROLOGICAL: + Transient right-sided weakness, slurred speech, facial droop, aphasia, chart prior reported history of seizure disorder not on annti-epileptic medications. No headache, dizziness, syncope, paralysis, ataxia, change in bowel or bladder control, witnessed seizure. MUSCULOSKELETAL: + muscle, back pain, joint pain or stiffness. HEMATOLOGIC: + anemia, easy bleeding or bruising. LYMPHATICS: No enlarged nodes. No history of splenectomy. PSYCHIATRIC: No history of depression or anxiety. ENDOCRINOLOGIC: No reports of sweating, cold or heat intolerance. No polyuria or polydipsia. ALLERGIES: No history of asthma, hives, eczema or rhinitis. Vital Signs Vital Signs Vital Signs: 03/04/23 18:52 03/04/23 19:00 03/04/23 18:56 Temperature 98.1 F Temperature Source Temporal Pulse Rate 78 Respiratory Rate 18 Blood Pressure 147/81 H Blood Pressure Mean 103 Pulse Ox 100 Oxygen Delivery Method Room Air Room Air 03/04/23 19:04 03/04/23 19:14 Temperature Temperature Source Pulse Rate 78 90 Respiratory Rate 18 14 Blood Pressure 147/81 H 153/65 H Blood Pressure Mean 103 94 Pulse Ox 100 94 Oxygen Delivery Method Room Air Room Air Weight Weight: 165 lb 2.02 oz Body Mass Index (BMI) 25.9 Physical Exam Narrative Physical Examination: General: Awake, alert, oriented to self, place and some recent events, hard of hearing, remains cooperative, seated in the ED bed, no acute distress, all prior right-sided deficits as well as facial droop and aphasia resolved currently. Skin: Normal color, normal turgor, no icterus, no cyanosis except occasional staged ecchymoses HEENT: AT/NC, EOMI, PERRLA, mildly dry MM, no carotid bruits or JVD noted. Lungs: Mildly diminished, greater bases, appropriate effort, no rales, ronchi or wheezing. Heart: Regular rate and rhythm; no gallop, rub audible. Abdomen: Soft, NTTP, ND, normal BS, no appreciated HSM. Extremities: No cyanosis, no clubbing, mild ankle nonpitting edema present Neurological: Patient awake, alert, oriented as noted, cognitive function currently improved but from discussion with patient and family patient has significantly declined over the last month; pupils equally reactive to light and accommodation, cranial nerves grossly normal with no ongoing evidence of any facial droop, moving all 4 extremities, no focal deficits, strength moderately to severely global decreased, FTN/HTS not marked, sensation intact, equivocal Babinski. Psychiatric: Affect appears initially flat but eventually smiling during evaluation, hard of hearing and suspect this compounds the situation, no acute evidence of depressive or anxiety feelings. Results Lab / Micro Data 03/04/23 19:10 03/04/23 19:10 Labs: Laboratory Results - last 24 hr 03/04/23 19:10: WBC 5.5, RBC 4.12 L, Hgb 12.4 L, Hct 38.8 L, MCV 94.2 H, MCH 30.1, MCHC 32.0, RDW Std Deviation 44.8 H, RDW Coeff of Sea 12.9, Plt Count 123 L, MPV 11.8, Immature Gran % (Auto) 0.900, Neut % (Auto) 50.7, Lymph % (Auto) 23.6, [place] % (Auto) 22.6 H, Eos % (Auto) 2.0, Baso % (Auto) 0.2, Absolute Neuts (auto) 2.8, Absolute Lymphs (auto) 1.31, Nucleated RBC % 0, PT 14.4, INR 1.1, APTT 34.[address] 03/04/23 18:56 IMPRESSION: No acute hemorrhage detected. Left-sided posterior temporal lobe hypodensity and high parietal hypodensity. These changes could be chronic however acute/subacute process is not excluded particularly at the posterior left temporal region. Consider additional imaging as clinically warranted. Electronically Signed: Grant Sanches MD at 19:13 EDT , ADDENDUM: 03/04/23 1922 IMPRESSION: No acute hemorrhage detected. Left-sided posterior temporal lobe hypodensity and high parietal hypodensity. These changes could be chronic however acute/subacute process is not excluded particularly at the posterior left temporal region. Consider additional imaging as clinically warranted. N.B. : The above Results were Read Back by Grant Sanches MD to Chandan Barbosa MD, and understanding confirmed on 03/04/2023 19:15:48 (ET). Electronically Signed: Grant Sanches MD at 19:13 EDT , Head/Neck CTA 03/04/23 18:57 IMPRESSION: No hemodynamically significant stenosis or aneurysmal dilatation is identified. No large vessel occlusion. Electronically Signed: Grant Sanches MD at 19:30 EDT , ADDENDUM: 03/04/23 193 IMPRESSION: No hemodynamically significant stenosis or aneurysmal dilatation is identified. No large vessel occlusion. N.B. : The above Results were Read Back by Grant Sanches MD to Chandan Barbosa MD, and understanding confirmed on 03/04/2023 19:31:57 (ET). Electronically Signed: Grant Sanches MD at 19:30 EDT , Assessment & Plan Assessment/Plan (1) Brain TIA: PLAN: Plan The patient is an 87 y/o M w/ PMHx: Dementia unclear type with unclear behavioral disturbance history, PMR, CKD stage IIIb reported prior possibly advancing to IV, Chronic anemia, HTN, HLD, JESSICA, Seizure disorder, CAD s/p PCI JOCELYN ramus 10/31/10, GERD w/ esophageal strictures s/p dilation, Hx TIA, Gout, Diabetes mellitus type II who presents to the [facility] ED on 03/04/23 as a stroke alert with history of onset right-sided facial droop as well as right-sided weakness in addition to aphasia and altered slurred speech with reportedly weakness primarily in the right upper extremity starting at approximately 6 PM on day of presentation with symptoms resolving on route with EMS with NIH stroke scale upon presentation 0. #1. Transient right-sided weakness, right-sided facial droop and aphasia, currently resolved concerning for TIA/CVA: Will admit to PCU, will obtain MRI Brain, 03/13/2021 echocardiogram with normal LV size, LV systolic function normal, EF 60%, stage I diastolic dysfunction with a bubble contrast study performed at that time negative for right to left interatrial shunt therefore will not repeat. PT/OT/Speech/Nutrition evaluation per protocol. Will allow permissive HTN, maintain on asa, add low dose statin w/ AM FLP, fall precautions. Mag, TSH, FLP, HgbA1c requested. Maintain on fall and aspiration precautions. Once work-up obtained low threshold to obtain Neurology consultatio n. #2. Chart reported Hx Seizure disorder: Chart reported history with Dx added 2019 during ED evaluation, not on any AED, unclear if true diagnosis, if presentation #1 without obvious MRI stroke may need to consider EEG. #3. CAD: s/p PCI JOCELYN ramus 10/31/10, will continue asa, noted plavix allergy with rash, adding low dose statin as noted, holding hypertension regimen for permission HTN given acute presentation as noted with re-addition once appropriate. #4. Hypertension: We will maintain permissive hypertension given acute presentation as noted with parent agents per stroke protocol. #5. Hyperlipidemia: Per current list not on statin therapy, given presentation we will add low-dose, recently noted FLP 02/09/23 with triglyceride 194, total cholesterol 140, LDL 71, VLDL 39, HDL 30 thus will not repeat. #6. Diabetes mellitus type II: Hold oral home regimen, continue home insulin re gimen, hemoglobin A1c requested, nutrition consultation per stroke protocol, ADA diet, accu checks w/ ISS. #7. CKD stage IIIb reported prior possibly advancing to IV with per review of GFR trends (vacillates below 30-40 range): Admission BUN/Cr 54/2.39, baseline renal function more recently primarily 2.2-2.5, most recent lab 02/09/23 creatinine 2.20, repeat CMP in AM. #8. GERD with history of esophageal strictures: Status post prior esophageal dilatation, from current list does not appear to be on PPI but will have as needed Mylanta as needed. #9. Chronic dysphagia/cricopharyngeal dysphagia: Patient baseline of note is on a chronic soft diet, ST consulted as noted given acute presentation #1. #10. Polymyalgia rheumatica: reports that she has taken him off of his chronic low-dose prednisone therapy and she reports that the primary care is aware of this. Patient denies any severe joint pain currently. #11. Hypothyroidism: We will continue patient home levothyroxine regimen, TSH and free T4 pending. #12. Chronic macrocytic anemia: Admission hemoglobin 12.4, MCV 94.2, baseline hemoglobin noted prior most recently 01/09/23 hemoglobin 12.8, stable, we will continue to trend. #13. Dementia, unclear type with unclear behavioral disturbance history: Complicates presentation, will continue patient home donepezil regimen, maintain on fall and aspiration precautions, therapies as well as case management consulted as noted above. #14. Gout: We will continue patient home chronic colchicine regimen. #15. JESSICA: Patient denies using any PAP therapy. #16. DVT Prophylaxis: SCDs pending MRI of the brain to be cautious given CT findings. #17. CODE status: Patient MARLO is his who is present and living will is currently in place. Discussed CODE status at length including difference between FULL code, DNR-CCA and DNR-CC status. Following discussions about the dif ferences in these status, requested DNR-CCA, no intubation. Advanced Care Planning Face to Face Time: 16 minutes. Charges/Coding Visit Charges Inpatient E&M: 00181 Init Hosp L3 Procedures Hospitalists Procedures: 38013 Advncd Care Plan 30 Min
[2023-03-04 19:41] LABS: Anion Gap 4 (5-15); BUN 54 mg/dL (7-18); BUN/Creat Ratio 22.6 RATIO (10-20); Chloride 112 mmol/L (98-107); Creatinine, Serum 2.39 mg/dL (0.70-1.30); EST Glomerular Filtration Rate 27 mL/min (>60); Est Glom Filt Rate - Afr Amer 33 mL/min (>60); Estimated Creatinine Clearance 19.28 ml/min; Glucose 116 mg/dL (74-106); Potassium 4.9 mmol/L (3.5-5.1); Sodium Level 141 mmol/L (136-145); Troponin-I HS 6 pg/mL (3.0-78.0)
[2023-03-04 20:13] LABS: Magnesium 2.4 mg/dL (1.6-2.6)
--- NOTE | 2023-03-04 20:25 | RAD_ITS ---
INDICATION: Neuro deficit, acute, stroke suspected EXAMINATION/TECHNIQUE: X-RAY - XR Chest 1 View COMPARISON: June 15, 2022. FINDINGS: The cardiac silhouette and mediastinal contours are not significantly changed compared to the prior examination. There is no focal airspace consolidation. No large pleural effusion. No adenopathy. No pneumothorax. No acute bony pathology. No subdiaphragmatic free air. Cholecystectomy clips. RAD/Chest 1 View IMPRESSION: No radiographic evidence of acute cardiopulmonary disease. Electronically Signed: Grant Sanches MD at 20:35 EDT ,
--- NOTE | 2023-03-04 21:10 | NURSING ---
emergency documentation started since 03/04/232099
[2023-03-04 21:43] LABS: Bedside Glucose 197 mg/dL (74-106)
[2023-03-04] MEDS: Insulin Lispro 100 UNIT/ML INSULN.PEN SC (22:19)
[2023-03-04] MEDS: Insulin Glargine-YFGN 100 UNIT/ML Pen 35 UNIT SC (22:21)
[2023-03-05] VITALS (7 sets, daily range): BP systolic 114–161; BP diastolic 73–101; PULSE 77–95; RESP 16–18; TEMP 36.4–36.8; O2SAT 94–100; BMI 24.8
[2023-03-05 05:50] LABS: Absolute Lymphocyte Count 1.19 X10^3/uL (0.83-4.51); Absolute Neutrophil Count 2.8 X10^3/uL (2.0-7.7); Basophil# 0.01 X10^3/uL; Basophil% 0.2 % (0-1); Eosinophils% 1.8 % (0-5); Hematocrit 38.1 % (40-54); Hemoglobin 12.2 g/dL (13.0-16.5); Lymphocyte # 1.19 X10^3/ul (0.83-4.51); Lymphocyte % 21.8 % (19-41); Mean Corpuscular Volume 93.8 fL (80-94); Mean Platelet Vol. 11.3 fl (6.2-12.0); Monocyte# 1.29 X10^3/uL; Monocyte% 23.6 % (0-10); NRBC Flagged by Analyzer 0 % (0-5); Neutrophil # 2.84 X10^3/uL (2.7-7.7); Neutrophil % 51.9 % (47-70); Platelet Count 119 K/mm3 (150-450); RBC Distribution Width CV 12.9 % (11.6-14.6); RBC Distribution Width SD 44.3 fl (35.1-43.9); Red Blood Count 4.06 M/mm3 (4.6-6.2); White Blood Count 5.5 K/mm3 (4.4-11.0)
[2023-03-05 06:16] LABS: ALB/GLOB Ratio 0.9 RATIO (0.9-2.4); AST(SGOT) 21 U/L (15-37); Alanine Aminotransfer ALT/SGPT 25 U/L (16-61); Albumin, Serum 3.5 g/dL (3.2-5.0); Alkaline Phosphatase 79 U/L (45-117); Anion Gap 5 (5-15); BUN 49 mg/dL (7-18); BUN/Creat Ratio 21.4 RATIO (10-20); Calcium,Total 8.2 mg/dL (8.5-10.1); Chloride 114 mmol/L (98-107); Creatinine, Serum 2.29 mg/dL (0.70-1.30); EST Glomerular Filtration Rate 29 mL/min (>60); Est Glom Filt Rate - Afr Amer 35 mL/min (>60); Estimated Creatinine Clearance 20.85 ml/min; Globulin 3.8 g/dL (2.2-4.2); Glucose 95 mg/dL (74-106); Potassium 4.5 mmol/L (3.5-5.1); Protein, Total 7.3 g/dL (6.4-8.2); Sodium Level 142 mmol/L (136-145); T4 Free Direct 1.25 ng/dL (0.76-1.46); Thyroid Stim Hormone (TSH) 1.23 uIU/mL (0.358-3.74)
[2023-03-05 06:46] LABS: Bedside Glucose 96 mg/dL (74-106)
--- NOTE | 2023-03-05 07:46 | PCM.PN.HOSP ---
Reason for Visit Reason for Visit: Diagnoses Transient cerebral ischemic attack, unspecified (03/04/23) Subjective Subjective Follow-up for TIA. Objective Data Objective Data Vital Signs: Vital Signs Temp Pulse Resp BP Pulse Ox O2 Del Method 98.3 F 80 18 139/76 H 99 Room Air 03/05/23 05:55 03/05/23 05:55 03/05/23 05:55 03/05/23 05:55 03/05/23 05:55 03/05/23 05:55 Oxygen Delivery Method Room Air Weight: 158 lb 11.725 oz Body Mass Index (BMI) 24.8 Intake & Output: Intake and Output for Last 24 Hours 03/03/23 03/04/23 03/05/23 23:59 23:59 23:59 Intake Total 90 / 90 Balance 90 / 90 Lab / Micro Data 03/05/23 05:35 03/05/23 05:35 Labs: Laboratory Results - last 24 hr 03/04/23 19:10: WBC 5.5, RBC 4.12 L, Hgb 12.4 L, Hct 38.8 L, MCV 94.2 H, MCH 30.1, MCHC 32.0, RDW Std Deviation 44.8 H, RDW Coeff of Sea 12.9, Plt Count 123 L, MPV 11.8, Immature Gran % (Auto) 0.900, Neut % (Auto) 50.7, Lymph % (Auto) 23.6, [place] % (Auto) 22.6 H, Eos % (Auto) 2.0, Baso % (Auto) 0.2, Absolute Neuts (auto) 2.8, Absolute Lymphs (auto) 1.31, Nucleated RBC % 0, PT 14.4, INR 1.1, APTT 34.0, Sodium 141, Potassium 4.9, Chloride 112 H, Carbon Dioxide 25.0, Anion Gap 4 L, BUN 54 H, Creatinine 2.39 H, Estim Creat Clear Calc 19.28, Est GFR (MDRD) Af Amer 33 L, Est GFR (MDRD) Non-Af 27 L, BUN/Creatinine Ratio 22.6 H, Glucose 116 H, Calcium 8.0 L, Magnesium 2.4, Troponin I High Sens 6 03/04/23 21:22: POC Glucose 197 H 03/05/23 05:35: WBC 5.5, RBC 4.06 L, Hgb 12.2 L, Hct 38.1 L, MCV 93.8, MCH 30.0, MCHC 32.0, RDW Std Deviation 44.3 H, RDW Coeff of Sea 12.9, Plt Count 119 L, MPV 11.3, Immature Gran % (Auto) 0.700, Neut % (Auto) 51.9, Lymph % (Auto) 21.8, [place] % (Auto) 23.6 H, Eos % (Auto) 1.8, Baso % (Auto) 0.2, Absolute Neuts (auto) 2.8, Absolute Lymphs (auto) 1.19, Nucleated RBC % 0, Sodium 142, Potassium 4.5, Chloride 114 H, Carbon Dioxide 23.0, Anion Gap 5, BUN 49 H, Creatinine 2.29 H, Estim Creat Clear Calc 20.85, Est GFR (MDRD) Af Amer 35 L, Est GFR (MDRD) Non-Af 29 L, BUN/Creatinine Ratio 21.4 H, Glucose 95, Calcium 8.2 L, Total Bilirubin 0.50, AST 21, ALT 25, Alkaline Phosphatase 79, Total Protein 7.3, Albumin 3.5, Globulin 3.8, Albumin/Globulin Ratio 0.9, TSH 1.23, Free T4 1.25 03/05/23 06:16: POC Glucose 96 Radiography Diagnostic Testing: Radiology Impression Brain CT 03/04/23 18:56 IMPRESSION: No acute hemorrhage detected. Left-sided posterior temporal lobe hypodensity and high parietal hypodensity. These changes could be chronic however acute/subacute process is not excluded particularly at the posterior left temporal region. Consider additional imaging as clinically warranted. Electronically Signed: Grant Sanches MD at 19:13 EDT , ADDENDUM: 03/04/231921 IMPRESSION: No acute hemorrhage detected. Left-sided posterior temporal lobe hypodensity and high parietal hypodensity. These changes could be chronic however acute/subacute process is not excluded particularly at the posterior left temporal region. Consider additional imaging as clinically warranted. N.B. : The above Results were Read Back by Grant Sanches MD to Chandan Barbosa MD, and understanding confirmed on 03/04/2023 19:15:48 (ET). Electronically Signed: Grant Sanches MD at 19:13 EDT , Head/Neck CTA 03/04/23 18:57 IMPRESSION: No hemodynamically significant stenosis or aneurysmal dilatation is identified. No large vessel occlusion. Electronically Signed: Grant Sanches MD at 19:30 EDT Reading Location ID and State: [facility] / [place] Tel , Service support , ADDENDUM: 03/04/23 1938 IMPRESSION: No hemodynamically significant stenosis or aneurysmal dilatation is identified. No large vessel occlusion. N.B. : The above Results were Read Back by Grant Sanches MD to Chandan Barbosa MD, and understanding confirmed on 03/04/2023 19:31:57 (ET). Electronically Signed: Grant Sanches MD at 19:30 EDT , Chest X-Ray 03/04/23 20:25 IMPRESSION: No radiographic evidence of acute cardiopulmonary disease. Electronically Signed: Grant Sanches MD at 20:35 EDT , Rhythm Strip Rhythm Strip: Sinus Rhythm Rate: 90 Ectopy: None Physical Exam Narrative Patient had transient slurred speech with right-sided facial droop and weakness resolved. Patient himself denies problem in understanding his speech, vocabulary but it seems patient could not understand in the beginning. Physical exam General: Alert, Oriented x3, Cooperative HEENT: Atraumatic, PERRLA, EOMI, Normocephalic Oral: No Gingival or Mucosal Lesions/ Ulcerations Neck: Supple, No JVD, Negative Carotid Bruits Lungs: Air entry diminished in bilateral lung bases. No crepitation/rhonchi Cardiovascular: Regular rate, Regular Rhythm, Normal S1, Normal S2, No murmurs Abdomen: Bowel Sounds Present, Soft, Non Tender, Non-Distended : No renal angle tenderness. No suprapubic tenderness. Extremities: No edema, Capillary Refill Less than 3 Seconds Skin: No rashes, No breakdown Musculoskeletal: No Tenderness to Palpation of Joints or Extremities Neurological: Cranial nerves II-XII grossly intact, DTR 2+/4. No acute focal neurological deficit. NIH 0. Mild dysphagia. Psych/Mental Status: Flat affect. Possible dementia Assessment & Plan Assessment/Plan (1) Brain TIA: PLAN: Plan The patient is an 87 y/o M \ #1. Transient right-sided weakness, right-sided facial droop and aphasia, currently resolved concerning for TIA/CVA: Patient admitted in PCU. On my exam and the admitting hospitalist note, and a stroke scale 0. 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 CTA does not show large vessel occlusion or hemodynamically significant stenosis. CT shows left-sided posterior temporal lobe and [place] hypodensities possible old stroke Fasting profile. TSH and free T4 normal. Patient recent fasting profile on 02/09/2023 shows TG 194, LDL 71, HDL 30. A1c 5.8%. Serum magnesium normal. #2. CAD: s/p PCI JOCELYN ramus 10/31/10, continue asa, noted plavix allergy with rash, adding low dose statin as noted, holding hypertension regimen for permission HTN given acute presentation as noted with re-addition once appropriate. 3.. Hypertension: We will maintain permissive hypertension given acute presentation as noted with parent agents per stroke protocol. 4.. Hyperlipidemia: Per current list not on statin therapy, given presentation we will add low-dose, recently noted FLP 02/09/23 with triglyceride 194, total cholesterol 140, LDL 71, VLDL 39, HDL 30 thus will not repeat. 5.. Diabetes mellitus type II: Hold oral home regimen, continue home insulin regimen, hemoglobin A1c requested, nutrition consultation per stroke protocol, ADA diet, accu checks w/ ISS. 6. CKD stage stage IV gradual worsening: Admission BUN/Cr 54/2.39, baseline renal function more recently primarily 2.2-2.5, most recent lab 02/09/23 creatinine 2.20, 03/05: Creatinine 2.29, BUN 49. On baseline. #8. GERD with history of esophageal strictures: Status post prior esophageal dilatation, from current list does not appear to be on PPI but will have as needed Mylanta as needed. #9. Chronic dysphagia/cricopharyngeal dysphagia: Patient baseline of note is on a chronic soft diet, ST consulted as noted given acute presentation #1. #10. Polymyalgia rheumatica: reports that she has taken him off of his chronic low-dose prednisone therapy and she reports that the primary care is aware of this. Patient denies any severe joint pain currently. #11. Hypothyroidism: We will continue patient home levothyroxine regimen, TSH and free T4 pending. #12. Chronic macrocytic anemia: Admission hemoglobin 12.4, MCV 94.2, baseline hemoglobin noted prior most recently 01/09/23 hemoglobin 12.8, stable, we will continue to trend. #13. Dementia, unclear type with unclear behavioral disturbance history: Complicates presentation, will continue patient home donepezil regimen, maintain on fall and aspiration precautions, therapies as well as case management consulted as noted above. #14. Gout: We will continue patient home chronic colchicine regimen. #15. JESSICA: Patient denies using any PAP therapy. #16. DVT Prophylaxis: SCDs pending MRI of the brain to be cautious given CT findings. #17. CODE status: Patient MARLO is his who is present and living will is currently in place. Discussed CODE status at length including difference between FULL code, DNR-CCA and DNR-CC status. Following discussions about the differences in these status, requested DNR-CCA, no intubation. Clinical Impression(s) from Imaging Studies Brain CT 03/04/23 18:56 IMPRESSION: No acute hemorrhage detected. Left-sided posterior temporal lobe hypodensity and high parietal hypodensity. These changes could be chronic however acute/subacute process is not excluded particularly at the posterior left temporal region. Consider additional imaging as clinically warranted. Head/Neck CTA 03/04/23 18:57 IMPRESSION: No hemodynamically significant stenosis or aneurysmal dilatation is identified. No large vessel occlusion. Chest X-Ray 03/04/23 20:25 IMPRESSION: No radiographic evidence of acute cardiopulmonary disease. Brain MRI 03/05/23 09:00 IMPRESSION: No evidence for acute infarct. Chronic involutional and white matter changes. 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 Charges/Coding Visit Charges Inpatient E&M: 95505 Subs Hosp L2
[2023-03-05 08:12] LABS: Hemoglobin A1c 5.8 % (3.8-5.6)
--- NOTE | 2023-03-05 09:00 | MRI_ITS ---
HISTORY: CVA, rt sided facial droop, rt sided weakness, slurred speech. TECHNIQUE: Multiplanar and multisequence MR images of the brain were obtained without contrast. 299 images. COMPARISON: CT prior day. FINDINGS: BRAIN PARENCHYMA: Mild chronic left frontal, parietal, temporal infarct. Multiple foci and small zones of increased T2 FLAIR signal in the bilateral cerebral white matter and barron. No abnormal focus of restricted diffusion. No acute intracranial hemorrhage identified. CSF SPACES: Mild generalized volume loss. No significant midline shift or other mass effect.No extra-axial fluid collection. VASCULAR SYSTEM: Major intracranial flow voids are maintained. PARANASAL SINUSES AND MASTOID AIR CELLS: No significant air fluid levels. ORBITS: Bilateral lens resections. MRI/Brain without Contrast IMPRESSION: No evidence for acute infarct. Chronic involutional and white matter changes. 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 Electronically Signed: Denia Pulliam MD at 14:00 EDT ,
[2023-03-05] MEDS: 0.9% Normal Saline (1000mL) 1,000 ML 50 ML IV (10:08)
[2023-03-05] MEDS: 0.9% Saline Lock 10 ML Syringe IV (10:08)
[2023-03-05] MEDS: Menthol/Lanolin/Calamine/Znox 113 GM Tube 1 APPLIC TOPICAL ×3 (10:09→22:01)
[2023-03-05 10:31] LABS: Bedside Glucose 112 mg/dL (74-106)
--- NOTE | 2023-03-05 13:18 | CASEMGMT ---
Social Work SW introduced self and role to patient and patient's . SW discussed advance directives with patient and spouse. Spouse, Anum, reports they have HCPOA and Living Will documents at home and she intends to bring them in for his records. Pt and spouse denied any other SW needs at this time. Duyen Stubbs ROVING TELLER, [employer]
--- NOTE | 2023-03-05 14:29 | CHAPLAIN ---
Type of Pastoral Visit _x__ Initial Visit ___ Follow-up Visit ___ On-call Visit ___ General Patient Visit ___ Spiritual Assessment ___ Family Conference ___ Bereavement ___ Rapid Response ___ Code Blue ___ Other (describe below) Pastoral Care Referral From _x__ Patient _x__ Family ___ Nurse ___ Physician ___ Clinical Cytogeneticist Scientist ___ Supervisor Order Takers ___ Other (describe below) Sacrament/Intervention _x__ Active listening ___ Anointing ___ Oriental Orthodox ___ Bereavement ___ Communion ___ Blanche exploration ___ ___ Life review _x__ Prayer ___ Reconciliation ___ Sacrament of Sick _x__ Supportive presence ___ Wedding ___ Other (describe below) Pastoral Comments patient was receiving stroke test evaluation when this color paste mixer arrived in the room; pt is able to answer questions as spouse also helps with a couple; pt is not aware of future decisions on care; prayer is welcoming of presence and prayer; family is waiting for results and defer concerns for the patient
--- NOTE | 2023-03-05 16:00 | CASEMGMT ---
Met with patients to complete KEITA form. Patient was sleeping and unable to be woken. KEITA form explained to patients who voiced understanding and signed form. Original form placed in pt?s chart and copy provided to patients . Dixie Grady, Discharge Planning Asst.
[2023-03-05 16:46] LABS: Bedside Glucose 108 mg/dL (74-106)
[2023-03-05] MEDS: Dext 5%-0.45% NS 1,000 ML 60 ML IV (17:30)
[2023-03-05 22:23] LABS: Bedside Glucose 135 mg/dL (74-106)
[2023-03-06 00:28] VITALS: BMI 24.8
[2023-03-06 00:44] VITALS: BMI 24.8
[2023-03-06 03:57] VITALS: BP 145/99; PULSE 117; RESP 18; TEMP 36.7; O2SAT 98
[2023-03-06] MEDS: 0.9% Saline Lock 10 ML Syringe IV ×2 (05:05→15:27)
[2023-03-06] MEDS: Haloperidol Lactate 5 MG/ML Vial 2 MG IV (05:05)
[2023-03-06 05:07] VITALS: BMI 25.1
[2023-03-06 06:59] LABS: Bedside Glucose 130 mg/dL (74-106)
[2023-03-06 08:06] LABS: Anion Gap 7 (5-15); BUN 39 mg/dL (7-18); Calcium,Total 8.8 mg/dL (8.5-10.1); Chloride 118 mmol/L (98-107); Creatinine, Serum 2.17 mg/dL (0.70-1.30); EST Glomerular Filtration Rate 31 mL/min (>60); Est Glom Filt Rate - Afr Amer 37 mL/min (>60); Glucose 136 mg/dL (74-106); Potassium 4.5 mmol/L (3.5-5.1); Sodium Level 144 mmol/L (136-145)
[2023-03-06 08:09] VITALS: O2SAT 94
[2023-03-06 09:40] VITALS: BP 152/89; PULSE 125; RESP 18; TEMP 36.6; O2SAT 97
[2023-03-06] MEDS: Dext 5%-0.45% NS 1,000 ML 60 ML IV (09:43)
[2023-03-06] MEDS: Menthol/Lanolin/Calamine/Znox 113 GM Tube 1 APPLIC TOPICAL ×3 (09:46→22:47)
[2023-03-06 13:11] VITALS: BMI 25.1
[2023-03-06 13:15] LABS: Bedside Glucose 107 mg/dL (74-106)
--- NOTE | 2023-03-06 14:35 | CASEMGMT ---
RN?CM?CHICKEN STUFFER?CM?to room for initial transition planning/care coordination?assessment.?RN?CM?introduced self and role at [facility].?Pt resting in bed in no distress at this time w/eyes closed during entire assessment, sleeping. Pt w/hx of dementia. , son, and DIL, @ bedside and the following information obtained from them. Care providers, pharmacy, and demographics verified/updated at this time. PCP: Dr Salas Specialists: [facility]/cardiology Insurance: [employer] Prescription Benefit:? Yes Living Will/HPOA:?Has both LW and HCPOA, who is his , Dorinda DE GUZMANOK: , Dorinda. 4 biological children. One dtr is Geeta Living Arrangements: Lives w/his in one-story home w/3-4 steps to enter w/railing and assists up the stairs. assists pt w/bathing and dressing, manages his medications, and does all home mgnt tasks. Pt able to get up ad kolby @ home use of cane. Transportation: DME: Pt has the following DME:?shower chair, cane, walker, glucometer HHC/SNF: hx of going to [facility] and has had [facility]. Discussed discharge planning. states when she saw pt OOB earlier, that he is too weak for her to care for him @ home on her own. and son and DIL all feel it would be best for pt to go to a SNF, unless he would return to his baseline and their 1st preference is [facility]. They were made aware a list of SNF's can be provided for them to review as well. Family voice no further concerns/needs at this time.? Advised them to ask for?CM or SW?if any further questions/concerns/needs arise.? They voice understanding. PLAN:??SNF DGiauzeus BSN?RN?CM
--- NOTE | 2023-03-06 14:58 | PN.HOSP_ITS ---
Reason for Visit Reason for Visit: Diagnoses Transient cerebral ischemic attack, unspecified (03/04/23) Objective Data Objective Data Vital Signs: Vital Signs Temp Pulse Resp BP Pulse Ox O2 Del Method 97.8 F 125 H 18 152/89 H 97 Room Air 03/06/23 09:40 03/06/23 09:40 03/06/23 09:40 03/06/23 09:40 03/06/23 09:40 03/06/23 13:09 Oxygen Delivery Method Room Air Weight: 160 lb 7.944 oz Body Mass Index (BMI) 25.1 Intake & Output: Intake and Output for Last 24 Hours 03/04/23 03/05/23 03/06/23 23:59 23:59 23:59 Intake Total 366.67 / 366.67 888 / 888 Output Total 700 / 700 Balance 366.67 / 66.67 188 / 188 Lab / Micro Data 03/05/23 05:35 03/06/23 07:24 Labs: Laboratory Results - last 24 hr 03/05/23 16:27: POC Glucose 108 H 03/05/23 21:59: POC Glucose 135 H 03/06/23 06:40: POC Glucose 130 H 03/06/23 07:24: Sodium 144, Potassium 4.5, Chloride 118 H, Carbon Dioxide 19.0 L , Anion Gap 7, BUN 39 H, Creatinine 2.17 H, Estim Creat Clear Calc 22.00, Est GFR (MDRD) Af Amer 37 L, Est GFR (MDRD) Non-Af 31 L, BUN/Creatinine Ratio 18.0, Glucose 136 H, Calcium 8.8 03/06/23 12:55: POC Glucose 107 H Rhythm Strip Rhythm Strip: Sinus Rhythm Rate: 90 Ectopy: None Physical Exam Narrative Seen and examined in the morning. Patient was confused in the morning, decreased awareness to the surrounding. Later on the day he improved. Patient had transient slurred speech with right-sided facial droop and weakness resolved. Patient himself denies problem in understanding his speech, vocabulary but it seems patient could not understand in the beginning. Physical exam General: Confused in the morning. Disoriented to time. HEENT: Atraumatic, PERRLA, EOMI, Normocephalic Oral: No Gingival or Mucosal Lesions/ Ulcerations Neck: Supple, No JVD, Negative Carotid Bruits Lungs: Air entry diminished in bilateral lung bases. No crepitation/rhonchi Cardiovascular: Regular rate, Regular Rhythm, Normal S1, Normal S2, No murmurs Abdomen: Bowel Sounds Present, Soft, Non Tender, Non-Distended : No renal angle tenderness. No suprapubic tenderness. Extremities: No edema, Capillary Refill Less than 3 Seconds Skin: No rashes, No breakdown Musculoskeletal: No Tenderness to Palpation of Joints or Extremities Neurological: Cranial nerves II-XII grossly intact, DTR 2+/4. No acute focal neurological deficit. NIH 0. Mild dysphagia. Psych/Mental Status: Flat affect. Possible dementia Assessment & Plan Assessment/Plan (1) Brain TIA: PLAN: Plan The patient is an 87 y/o M \ #1. Transient right-sided weakness, right-sided facial droop and aphasia, currently resolved concerning for TIA/CVA: Patient admitted in PCU. On my exam and the admitting hospitalist note, and a stroke scale 0. 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 CTA does not show large vessel occlusion or hemodynamically significant stenosis. CT shows left-sided posterior temporal lobe and [place] hypodensities possible old stroke Fasting profile. TSH and free T4 normal. Patient recent fasting profile on 02/09/2023 shows TG 194, LDL 71, HDL 30. A1c 5.8%. Serum magnesium normal. 03/06: SOC consult ordered as I feel patient baby aspirin can be increased to aspirin 325 mg daily. I feel patient definitely had TIA. In the meantime, continue PT OT speech evaluation. Speech therapist recommended modified barium swallow as he failed initial swallow screen. From past history it seems patient has critical pharyngeal dysphagia even before TIA. I feel patient might need SNF. #2. CAD: s/p PCI JOCELYN ramus 10/31/10, continue asa, noted plavix allergy with rash, adding low dose statin as noted, holding hypertension regimen for permission HTN given acute presentation as noted with re-addition once appropriate. 3.. Hypertension: We will maintain permissive hypertension given acute presentation as noted with parent agents per stroke protocol. 4.. Hyperlipidemia: Per current list not on statin therapy, given presentation we will add low-dose, recently noted FLP 02/09/23 with triglyceride 194, total cholesterol 140, LDL 71, VLDL 39, HDL 30 thus will not repeat. 5.. Diabetes mellitus type II: Hold oral home regimen, continue home insulin regimen, hemoglobin A1c requested, nutrition consultation per stroke protocol, ADA diet, accu checks w/ ISS. 03/07 glucoses reasonably well controlled. 6. CKD stage stage IV gradual worsening: Admission BUN/Cr 54/2.39, baseline r enal function more recently primarily 2.2-2.5, most recent lab 02/09/23 creatinine 2.20, 03/05: Creatinine 2.29, BUN 49. On baseline. 03/06: BUNs/creatinine 39/2.17 on baseline. #8. GERD with history of esophageal strictures: Status post prior esophageal dilatation, from current list does not appear to be on PPI but will have as needed Mylanta as needed. #9. Chronic dysphagia/cricopharyngeal dysphagia: Patient baseline of note is on a chronic soft diet, ST consulted as noted given acute presentation #1. #10. Polymyalgia rheumatica: reports that she has taken him off of his chronic low-dose prednisone therapy and she reports that the primary care is aware of this. Patient denies any severe joint pain currently. #11. Hypothyroidism: We will continue patient home levothyroxine regimen, TSH and free in normal range. #12. Chronic macrocytic anemia: Admission hemoglobin 12.4, MCV 94.2, baseline hemoglobin noted prior most recently 01/09/23 hemoglobin 12.8, stable, we will continue to trend. #13. Dementia, unclear type with unclear behavioral disturbance history: Complicates presentation, will continue patient home donepezil regimen, maintain on fall and aspiration precautions, therapies as well as case management consulted as noted above. #14. Gout: We will continue patient home chronic colchicine regimen. #15. JESSICA: Patient denies using any PAP therapy. #16. DVT Prophylaxis: SCDs pending MRI of the brain to be cautious given CT findings. #17. CODE status: Patient MARLO is his who is present and living will is currently in place. Discussed CODE status at length including difference between FULL code, DNR-CCA and DNR-CC status. Following discussions about the differences in these status, requested DNR-CCA, no intubation. Laboratory Results 03/05/23 16:27: POC Glucose 108 H 03/05/23 21:59: POC Glucose 135 H 03/06/23 06:40: POC Glucose 130 H 03/06/23 07:24: Sodium 144, Potassium 4.5, Chloride 118 H, Carbon Dioxide 19.0 L , Anion Gap 7, BUN 39 H, Creatinine 2.17 H, Estim Creat Clear Calc 22.00, Est GFR (MDRD) Af Amer 37 L, Est GFR (MDRD) Non-Af 31 L, BUN/Creatinine Ratio 18.0, Glucose 136 H, Calcium 8.8 03/06/23 12:55: POC Glucose 107 H Clinical Impression(s) from Imaging Studies Brain CT 03/04/23 18:56 IMPRESSION: No acute hemorrhage detected. Left-sided posterior temporal lobe hypodensity and high parietal hypodensity. These changes could be chronic however acute/subacute process is not excluded particularly at the posterior left temporal region. Consider additional imaging as clinically warranted. Head/Neck CTA 03/04/23 18:57 IMPRESSION: No hemodynamically significant stenosis or aneurysmal dilatation is identified. No large vessel occlusion. Chest X-Ray 03/04/23 20:25 IMPRESSION: No radiographic evidence of acute cardiopulmonary disease. Brain MRI 03/05/23 09:00 IMPRESSION: No evidence for acute infarct. Chronic involutional and white matter changes. 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 Charges/Coding Visit Charges Inpatient E&M: 59396 Subs Hosp L2
--- NOTE | 2023-03-06 15:06 | CASEMGMT ---
Social Work Judith Nicholson RNCM, pt states he does have a living will and health care POA naming his Anum Walden. Pt is aware documents are not on file and it was requested they be brought in for scanning into the EMR. FELIPE Landeros
--- NOTE | 2023-03-06 15:45 | SP.MBSS_ITS ---
Modified Barium Swallow Patient Information Study Date: 03/06/23 Study Time: 13:30 Direct Billable Minutes: 86 Total Minutes procedure & reportin Diagnosis: TIA (45.9), GERD (K21.9) Referring Physician: Bello Frias Reason for Referral: Objectively assess swallow function, assess risk for aspiration, and determine recommendations for least restrictive diet textures and compensatory strategies to improve safety of swallow. Medical History: The patient is an 87 y/o M w/ PMH including Dementia, PMR, CKD, Chronic anemia, HTN, HLD, JESSICA, Seizure disorder, CAD s/p PCI JOCELYN ramus 10/31/10, GERD w/ esophageal strictures s/p dilation, Hx TIA, Gout, Diabetes mellitus type II. He presented to [facility] ED 03/04/2023 as a stroke alert with history of onset right- sided facial droop as well as right-sided weakness in addition to aphasia and altered slurred speech. Pt admitted for CVA work up. Brain MRI negative for new CVA. Patient being managed currently for TIA. SENIOR APPLICATIONS DEVELOPER evaluated the patient 03/05/2023 and recommended NPO prior to MBSS planned for today due to history of dysphagia and silent aspiration. Most recent MBSS was in 02/2022 and recommended Easy to Chew textures / Thin liquids and no mixed consistencies (SEE report for full details). Attempted MBSS this morning, but patient refused once in radiolog y. With present and daughter on the phone to encourage participation, patient became agreeable to MBSS. Current Diet Ordered: NPO Mental Status: Impaired Respiratory Status: Oxygenating on Room Air Penetration-Aspiration Scale Penetration-Aspiration Scale: OBJECTIVE ASSESSMENT OF SWALLOW FUNCTION (QUANTITATIVE ? PER TRIAL): PENETRATION / ASPIRATION SCALE (MALONE): 1 = does not enter airway 2 = enters airway/above vocal folds/ejected 3 = enters airway/above vocal folds/not ejected 4 = enters airway/contacts vocal folds/ejected 5 = enters airway/contacts vocal folds/not ejected 6 = enters airway/below vocal folds/ejected 7 = enters airway/below vocal folds/not ejected despite effort 8 = enters airway/below vocal folds/no effort VIDEOFLOROSCOPIC SCALE SCORE (MALONE): Grade I = aspiration of material that has penetrated into the laryngeal vestibule, intact cough reflex Grade II = aspiration < 10 % of the bolus, intact cough reflex Grade III = aspiration of < 10 % of the bolus, reduced cough reflex or aspiration of > 10 % of the bolus, intact cough reflex Grade IV = aspiration of > 10 % of the bolus, reduced cough reflex Penetration-Aspiration Scale Score Thin Liquid via teaspoon: Result: 3= enters airways/above vocal folds/not ejected (trace) Thin Liquid via teaspoon Effortful swallow: Result: 2= enter airway/above vocal folds/ejected Thin liquid via single cup sip: Result: 2= enter airway/above vocal folds/ejected [place] thick liquid via single cup sip: Result: 2= enter airway/above vocal folds/ejected Pudding via teaspoon: Result: 1= does not enter airway Thin liquid via single sip by straw: Result: 2= enter airway/above vocal folds/ejected Thin liquid via sequential sip by straw: Result: 5= enters airways/contacts vocal folds/not ejected (no cough reflex) 1/4 Cookie: Result: 3= enters airways/above vocal folds/not ejected (trace) Comment: Silent post prandial aspiration of previous trial Thin liquid via single sip by straw Trial 2: Result: 8= enters airway/below vocal folds/no effort (Patient spoke during the trial, which contributed to aspiration) Thin liquid via single cup sip Trial 2: Result: 8= enters airway/below vocal folds/no effort Comment: Patient refused additional trials. Oral Phase Labial Seal: Escape beyond mid-chin Tongue Control During Bolus Hold: Posterior escape of less than half of bolus Bolus Preparation/Mastication: Disorganized chewing/mashing with solid pieces of bolus unchewed (small piece of cookie appeared unchewed after prolonged mastication) Bolus Transport/Lingual Motion: Delayed initiation of tongue motion Oral Residue: Residue collection on oral structures Pharyngeal Phase Initiation of Pharyngeal Swallow: Bolus head at posterior laryngeal surgace of epiglottis Soft Palate Elevation: No bolus between soft palate and pharyngeal wall Laryngeal Elevation: Partial superior movement thyroid cart/partial apprx aryt- epig petiole Anterior Hyoid Excursion: Partial anterior movement Epiglottic Movement: No inversion (little to no epiglottic inversion) Laryngeal Vestibule Closure at Height of Swallow: Incomplete; narrow column of air/contrast in laryngeal vestibule Pharyngeal Stripping Wave: Present - diminished Pharyngoesophageal Segment Opening: Parital distension and partial duration; parital obstruction of flow Tongue Base Retraction: Wide column of contrast between tongue base & post. pharyngeal wall Pharyngeal Residue: Collection of residue within or on pharyngeal structures Esophageal Phase Esophageal Clearance: Esophageal retention (trace retention in upper esophagus) Treatment Strategies Effects of treatment strategies attemped:: Decreased bolus size = effective. Effortful swallow = somewhat effective. Cued cough and re-swallow = not effective, patient would not attempt despite SENIOR APPLICATIONS DEVELOPER verbal cues and modeling. Diagnosis/Impression Diagnosis: Mild-moderate oropharyngeal phase dysphagia (R13.12) Impression: The oral phase is primarily marked by... -Prolonged mastication with small piece of cookie appearing un-chewed. -Mild oral residue after the swallow. -Delayed tongue motion for A-P transport. -Posterior loss of <1/2 of liquid bolus to the posterior surface of the epiglottis. The pharyngeal phase is primarily marked by... -Decreased airway closure during the swallow due to decreased laryngeal elevation and anterior hyoid excursion during the swallow. Little to no epiglottic inversion observed. -Decreased tongue base retraction, pharyngeal contraction, and UES opening/duration with resulting collections of pharyngeal residues in the vallecula and pyriforms after the swallow - especially noted with large sips. -SILENT aspiration of thin liquids via cup and straw. SILENT post prandial aspiration of thin liquid by straw. SEE full PAS scores above. CP bar present at the level of C-6, which did not appear to impact bolus clearance. Recommendations Diet: Mechanical Soft Textures (Soft and Bite Size textures (IDDSI Level 6)) and Thin Liquids Comment: Encourage hard swallows with bites and sips, meds crushed in puree Compensatory Strategies: Small Bites, Small Sips, Slow Rate, Sitting upright and Remain sitting upright for 30 minutes after PO intake Supervision: 1:1 Close Supervision Recommend Repeat Modified Barium Swallow: TBD Need for Skilled Speech Therapy Services: Yes Comment: Will recommend speech therapy to train patient and family in strategies to decrease risk for aspiration, as well as train in testing and preparing recommended diet textures. Additionally, if the patient is willing/able, will r ecommend oropharyngeal strengthening to include lingual resistance exercises, effortful swallows, Rena, CTAR. Education Completed: 1. Described result of evaluation., 4. Family/caregivers understand evaluation & agree w/ goals & tx plan., 7. Pt requires further education on strategies & risks. and 8. Family/caregivers require further education on strategies & risks. Status Active ST Patient: Active Contact Information [facility] Speech Therapy:: Guerita Felix M.A. [facility]-SENIOR APPLICATIONS DEVELOPER Speech-Language Pathologist [facility] [address] [place] [address] [email or web address] [phone]
--- NOTE | 2023-03-06 16:03 | CASEMGMT ---
Discharge Planning A list of?SNF?providers including quality and resource use data and consistent with the patient's preferred geographic region, medical needs, and insurance network was created in CarePort Guide.? This list was provided to the SW. Dixie Grady, Discharge Planning Asst.
--- NOTE | 2023-03-06 16:13 | CASEMGMT ---
Social Work SW received referral from RNCM that pt's would like pt to go to TCU. SW met with pt , pt sleeping soundly and did not wake. SW introduced self and role of SW and list of SNF providers given to pt's . SW updated of positive covid cases on TCU. Pt now requesting referral to [facility]. DC foundation assistant updated and to send referral. Plan: [facility], pending acceptance and precert FELIPE Landeros
[2023-03-06 16:20] VITALS: BP 156/88; PULSE 96; RESP 18; TEMP 36.6; O2SAT 100
--- NOTE | 2023-03-06 16:24 | CASEMGMT ---
Discharge Planning Referral sent via [facility]Port to [facility] Dixie Grady, Discharge Planning Asst.
[2023-03-06 16:41] LABS: Bedside Glucose 136 mg/dL (74-106)
[2023-03-06] MEDS: Atorvastatin Calcium 40 MG Tablet PO (22:52)
[2023-03-06] MEDS: Glucerna Shake 120 ML LIQUID PO (23:03)
[2023-03-06 23:06] VITALS: BP 155/99; PULSE 109; RESP 18; TEMP 36.7; O2SAT 100
[2023-03-07 00:33] LABS: Bedside Glucose 113 mg/dL (74-106)
[2023-03-07 03:44] VITALS: BMI 25.1
[2023-03-07 05:00] VITALS: BP 167/91; PULSE 94; RESP 14; TEMP 36.2; O2SAT 99
[2023-03-07 05:41] VITALS: BMI 24.0
[2023-03-07] MEDS: Levothyroxine 100 MCG Tablet PO (05:45)
[2023-03-07] MEDS: Dext 5%-0.45% NS 1,000 ML 60 ML IV ×2 (05:45→21:11)
[2023-03-07 07:06] LABS: Bedside Glucose 145 mg/dL (74-106)
--- NOTE | 2023-03-07 09:17 | MRI_ITS ---
ACR Level 3 findings have been noted. An addendum which confirms receipt of the report will follow. HISTORY: r/o mass, positive finding on previous mri please compare. TECHNIQUE: Multiplanar and multisequence MR images of the brain were obtained before and after the intravenous administration of 14 mL clariscan. 529 images. COMPARISON: MR 03/05/2023, CT 03/04/2023. FINDINGS: BRAIN PARENCHYMA: No enhancing lesion in the brain parenchyma. Small focus of restricted diffusion in the left frontal cortex. No acute intracranial hemorrhage identified. Chronic left frontal, parietal, and temporal infarcts. Multiple foci and small zones of increased T2 FLAIR signal in the bilateral cerebral white matter. CSF SPACES: Mild generalized volume loss. No significant midline shift or other mass effect.No extra-axial fluid collection. VASCULAR SYSTEM: Major intracranial flow voids are maintained. PARANASAL SINUSES AND MASTOID AIR CELLS: No significant air fluid levels. ORBITS: Bilateral lens resections. MRI/Brain W/WO Contrast IMPRESSION: Small acute infarct in the left frontal cortex. Chronic left cerebral infarcts. Chronic involutional and white matter changes. No evidence for enhancing intracranial mass. Electronically Signed: Denia Pulliam MD at 14:17 EDT ,
[2023-03-07 10:00] VITALS: BP 157/92; PULSE 98; RESP 18; TEMP 36.6; O2SAT 99
[2023-03-07] MEDS: Aspirin 81 MG TAB.CHEW PO (10:06)
[2023-03-07] MEDS: Colchicine 0.6 MG TABLET PO (10:06)
[2023-03-07] MEDS: Acetaminophen 325 MG Tablet 650 MG PO ×2 (10:06→18:46)
[2023-03-07] MEDS: Donepezil HCl 5 MG Tablet PO (10:06)
[2023-03-07] MEDS: Glucerna Shake 120 ML LIQUID PO ×3 (10:07→17:45)
[2023-03-07] MEDS: Insulin Glargine-YFGN 100 UNIT/ML Pen 10 UNIT SC (10:07)
[2023-03-07] MEDS: Menthol/Lanolin/Calamine/Znox 113 GM Tube 1 APPLIC TOPICAL ×4 (10:07→21:12)
--- NOTE | 2023-03-07 11:24 | CASEMGMT ---
Discharge Planning Patient has been accepted by [facility]. SW updated. Dixie Grady, Discharge Planning Asst.
[2023-03-07 11:39] VITALS: BMI 24.0
[2023-03-07] MEDS: Insulin Lispro 100 UNIT/ML INSULN.PEN SC ×2 (11:58→22:31)
[2023-03-07 12:22] LABS: Bedside Glucose 274 mg/dL (74-106)
[2023-03-07] MEDS: Contrast Allergy Safety Check IV (14:00)
[2023-03-07] MEDS: 0.9% Saline Lock 10 ML Syringe IV (14:02)
--- NOTE | 2023-03-07 15:40 | PN.HOSP_ITS ---
Subjective Subjective Doing well, no issues overnight. Per his , he has had issues with swallowing in the past and has modified his p.o. intake at home. Objective Data Objective Data Vital Signs: Vital Signs Temp Pulse Resp BP Pulse Ox O2 Del Method 97.9 F 98 18 157/92 H 99 Room Air 03/07/23 10:00 03/07/23 10:00 03/07/23 10:00 03/07/23 10:00 03/07/23 10:00 03/07/23 14:00 Oxygen Delivery Method Room Air Weight: 153 lb 7.068 oz Body Mass Index (BMI) 24.0 Intake & Output: Intake and Output for Last 24 Hours 03/06/23 03/07/23 03/08/23 03:59 03:59 03:59 Intake Total 276.67 / 276.67 1008 / 1008 1837 / 1837 Output Total 300 / 300 600 / 600 700 / 700 Balance -23.33 / -23.33 408 / 408 1137 / 1137 Lab / Micro Data 03/05/23 05:35 03/06/23 07:24 Labs: Laboratory Results - last 24 hr 03/06/23 16:16: POC Glucose 136 H 03/06/23 23:13: POC Glucose 113 H 03/07/23 06:34: POC Glucose 145 H 03/07/23 11:56: POC Glucose 274 H Radiography Diagnostic Testing: Radiology Impression Brain MRI 03/07/23 09:17 IMPRESSION: Small acute infarct in the left frontal cortex. Chronic left cerebral infarcts. Chronic involutional and white matter changes. No evidence for enhancing intracranial mass. Electronically Signed: Denia Pulliam MD at 14:17 EDT , ADDENDUM: 03/07/23 1430 IMPRESSION: Small acute infarct in the left frontal cortex. Chronic left cerebral infarcts. Chronic involutional and white matter changes. No evidence for enhancing intracranial mass. N.B. : Jo-Ann Law RN, confirmed on 03/07/2023 14:23:30 (ET) that the healthcare facility has received the radiology report. Electronically Signed: Denia Pulliam MD at 14:17 EDT , Rhythm Strip Rhythm Strip: Sinus Rhythm Rate: 90 Ectopy: None Physical Exam Narrative General: Alert, Oriented x2, Cooperative, No apparent distress HEENT: Atraumatic, PERRLA, EOMI, Normocephalic Oral: Moist Mucosa Neck: Supple, No JVD Lungs: Dashed, Normal air movement, No rhonchi, No wheeze, No rales Cardiovascular: Regular rate, Regular Rhythm, Normal S1, Normal S2, No murmurs Abdomen: Soft, Non Tender, Non-Distended, No Hepato-splenomegaly Extremities: No edema, Capillary Refill Less than 3 Seconds Skin: No rashes, No breakdown Musculoskeletal: No Tenderness to Palpation of Joints or Extremities Neurological: Cranial nerves II-XII grossly intact, moves all extremities, Sensory exam intact to light touch and pain Psych/Mental Status: Flat affect Assessment & Plan Assessment/Plan (1) Brain TIA: PLAN: Plan #1. Transient right-sided weakness, right-sided facial droop and aphasia with small acute infarct in the left frontal cortex: Patient admitted in PCU. On my exam and the admitting hospitalist note, and a stroke scale 0. 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 CTA does not show large vessel occlusion or hemodynamically significant stenosis. CT shows left-sided posterior temporal lobe and [place] hypodensities possible old stroke Fasting profile. TSH and free T4 normal. Patient recent fasting profile on 02/09/2023 shows TG 194, LDL 71, HDL 30. A1c 5.8%. Serum magnesium normal. 03/06: SOC consult ordered as I feel patient baby aspirin can be increased to aspirin 325 mg daily. I feel patient definitely had TIA. In the meantime, continue PT OT speech evaluation. Speech therapist recommended modified barium swallow as he failed initial swallow screen. From past history it seems patient has critical pharyngeal dysphagia even before TIA. I feel patient might need SNF. 03/07/2023: SOC neurology was consulted and recommended a repeat MRI with and without contrast this was done and demonstrated a small acute infarct in the left frontal cortex. We will can continue with current therapies and interventions #2. CAD: s/p PCI JOCELYN ramus 10/31/10, continue asa, noted plavix allergy with rash, adding low dose statin as noted, holding hypertension regimen for permission HTN given acute presentation as noted with re-addition once appropriate. 3.. Hypertension: We will maintain permissive hypertension given acute presentation as noted with parent agents per stroke protocol. 4.. Hyperlipidemia: Per current list not on statin therapy, given presentation we will add low-dose, recently noted FLP 02/09/23 with triglyceride 194, total cholesterol 140, LDL 71, VLDL 39, HDL 30 thus will not repeat. 5.. Diabetes mellitus type II: Hold oral home regimen, continue home insulin regimen, hemoglobin A1c requested, nutrition consultation per stroke protocol, ADA diet, accu checks w/ ISS. 03/07 glucoses reasonably well controlled. 6. CKD stage stage IV gradual worsening: Admission BUN/Cr 54/2.39, baseline renal function more recently primarily 2.2-2.5, most recent lab 02/09/23 creatinine 2.20, 03/05: Creatinine 2.29, BUN 49. On baseline. 03/06: BUNs/creatinine 39/2.17 on baseline. #8. GERD with history of esophageal strictures: Status post prior esophageal dilatation, from current list does not appear to be on PPI but will have as needed Mylanta as needed. #9. Chronic dysphagia/cricopharyngeal dysphagia: Patient baseline of note is on a chronic soft diet, ST consulted as noted given acute presentation #1. #10. Polymyalgia rheumatica: reports that she has taken him off of his chronic low-dose prednisone therapy and she reports that the primary care is aware of this. Patient denies any severe joint pain currently. #11. Hypothyroidism: We will continue patient home levothyroxine regimen, TSH and free in normal range. #12. Chronic macrocytic anemia: Admission hemoglobin 12.4, MCV 94.2, baseline hemoglobin noted prior most recently 01/09/23 hemoglobin 12.8, stable, we will continue to trend. #13. Dementia, unclear type with unclear behavioral disturbance history: Complicates presentation, will continue patient home donepezil regimen, maintain on fall and aspiration precautions, therapies as well as case management consul anmol as noted above. #14. Gout: We will continue patient home chronic colchicine regimen. #15. JESSICA: Patient denies using any PAP therapy. DVT: SCDs Charges/Coding Visit Charges Inpatient E&M: 73452 Subs Hosp L2
[2023-03-07 16:00] VITALS: BP 133/83; PULSE 90; RESP 18; TEMP 36.8; O2SAT 98
[2023-03-07 17:27] LABS: Bedside Glucose 131 mg/dL (74-106)
[2023-03-07 20:00] VITALS: BP 145/94; PULSE 110; RESP 15; TEMP 36.7; O2SAT 95
[2023-03-07] MEDS: Atorvastatin Calcium 40 MG Tablet PO (21:12)
[2023-03-07 22:00] VITALS: BP 151/91; PULSE 114; RESP 15; TEMP 36.8; O2SAT 100
[2023-03-07 22:45] VITALS: BMI 24.0
[2023-03-08] VITALS (7 sets, daily range): BP systolic 139–151; BP diastolic 79–101; PULSE 89–110; RESP 17–18; TEMP 36.4–36.8; O2SAT 96–100; BMI 24.0; BMI 24.6
[2023-03-08 00:17] LABS: Bedside Glucose 218 mg/dL (74-106)
[2023-03-08] MEDS: Levothyroxine 100 MCG Tablet PO (06:04)
[2023-03-08] MEDS: Insulin Lispro 100 UNIT/ML INSULN.PEN SC ×2 (06:14→12:06)
[2023-03-08 07:00] LABS: Bedside Glucose 152 mg/dL (74-106)
[2023-03-08] MEDS: Glucerna Shake 120 ML LIQUID PO ×3 (09:16→18:11)
[2023-03-08] MEDS: Menthol/Lanolin/Calamine/Znox 113 GM Tube 1 APPLIC TOPICAL ×3 (09:16→18:11)
[2023-03-08] MEDS: Aspirin 81 MG TAB.CHEW PO (09:17)
[2023-03-08] MEDS: Colchicine 0.6 MG TABLET PO (09:17)
[2023-03-08] MEDS: Insulin Glargine-YFGN 100 UNIT/ML Pen 10 UNIT SC (09:17)
[2023-03-08] MEDS: Donepezil HCl 5 MG Tablet PO (09:17)
--- NOTE | 2023-03-08 11:26 | CASEMGMT ---
Addendum entered by Christine Perera 03/08/23 13:27: Patient was approved to go to [facility]. The authorization number is [id number]. SW notified physician and [facility]. Christine SMITH Original Note: DARREN faxed all necessary clinicals to [facility] in order to obtain insurance authorization for [facility]. Await approval. Plan: [facility] pending insurance approval. Christine SMITH
[2023-03-08] MEDS: Dext 5%-0.45% NS 1,000 ML 60 ML IV (12:05)
[2023-03-08 12:28] LABS: Bedside Glucose 161 mg/dL (74-106)
[2023-03-08] MEDS: Acetaminophen 325 MG Tablet 650 MG PO (14:04)
--- NOTE | 2023-03-08 14:30 | PCM.TXEXTCAR ---
Diet Diet Order/Speech Therapy: 03/06/23 14:48 Diet: Regular - General Food consistency:: Soft & Bite Sized Liquid Consistency:: [place]/Mildly Thick Is pt able to select menu?: Yes Diet Comments: Direct sup/assist, encourage hard swallows, sips 1 at a time Routine Orders/Code Status Routine Lab Work: CBC and BMP Code Status: DNRCC-A Wound(s) R big toe: Wound Type: Neuropathic/Diabetic Foot Ulcer Therapies Physical Therapy: Eval and Treat Occupational Therapy: Eval and Treat Speech Therapy: Eval and Treat Problem/Diagnosis (1) Brain TIA: Status: Acute Code(s): G45.9 - Transient cerebral ischemic attack, unspecified Plan #1. Transient right-sided weakness, right-sided facial droop and aphasia with small acute infarct in the left frontal cortex: Patient admitted in PCU. On my exam and the admitting hospitalist note, and a stroke scale 0. 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 CTA does not show large vessel occlusion or hemodynamically significant stenosis. CT shows left-sided posterior temporal lobe and [place] hypodensities possible old stroke Fasting profile. TSH and free T4 normal. Patient recent fasting profile on 02/09/2023 shows TG 194, LDL 71, HDL 30. A1c 5.8%. Serum magnesium normal. 03/06: SOC consult ordered as I feel patient baby aspirin can be increased to aspirin 325 mg daily. I feel patient definitely had TIA. In the meantime, continue PT OT speech evaluation. Speech therapist recommended modified barium swallow as he failed initial swallow screen. From past history it seems patient has critical pharyngeal dysphagia even before TIA. I feel patient might need SNF. 03/07/2023: SOC neurology was consulted and recommended a repeat MRI with and without contrast this was done and demonstrated a small acute infarct in the left frontal cortex. We will can continue with current therapies and interventions #2. CAD: s/p PCI JOCELYN ramus 10/31/10, continue asa, noted plavix allergy with rash, adding low dose statin as noted, holding hypertension regimen for permission HTN given acute presentation as noted with re-addition once appropriate. 3.. Hypertension: We will maintain permissive hypertension given acute presentation as noted with parent agents per stroke protocol. 4.. Hyperlipidemia: Per current list not on statin therapy, given presentation we will add low-dose, recently noted FLP 02/09/23 with triglyceride 194, total cholesterol 140, LDL 71, VLDL 39, HDL 30 thus will not repeat. 5.. Diabetes mellitus type II: Hold oral home regimen, continue home insulin regimen, hemoglobin A1c requested, nutrition consultation per stroke protocol, ADA diet, accu checks w/ ISS. 03/07 glucoses reasonably well controlled. 6. CKD stage stage IV gradual worsening: Admission BUN/Cr 54/2.39, baseline renal function more recently primarily 2.2-2.5, most recent lab 02/09/23 creatinine 2.20, 03/05: Creatinine 2.29, BUN 49. On baseline. 03/06: BUNs/creatinine 39/2.17 on baseline. #8. GERD with history of esophageal strictures: Status post prior esophageal dilatation, from current list does not appear to be on PPI but will have as needed Mylanta as needed. #9. Chronic dysphagia/cricopharyngeal dysphagia: Patient baseline of note is on a chronic soft diet, ST consulted as noted given acute presentation #1. #10. Polymyalgia rheumatica: reports that she has taken him off of his chronic low-dose prednisone therapy and she reports that the primary care is aware of this. Patient denies any severe joint pain currently. #11. Hypothyroidism: We will continue patient home levothyroxine regimen, TSH and free in normal range. #12. Chronic macrocytic anemia: Admission hemoglobin 12.4, MCV 94.2, baseline hemoglobin noted prior most recently 01/09/23 hemoglobin 12.8, stable, we will continue to trend. #13. Dementia, unclear type with unclear behavioral disturbance history: Complicates presentation, will continue patient home donepezil regimen, maintain on fall and aspiration precautions, therapies as well as case management consulted as noted above. #14. Gout: We will continue patient home chronic colchicine regimen. #15. JESSICA: Patient denies using any PAP therapy. DVT: SCDs Allergies/Procedures Done in Hospital Allergies clopidogrel bisulfate [From Plavix] Allergy (Verified 09/15/22 10:12) Rash cyclobenzaprine [Cyclobenzaprine] Allergy (Verified 09/15/22 10:12) Rash fluoxetine HCl [From Prozac] Allergy (Verified 09/15/22 10:12) Rash Procedures: None Type of Care/Length of Stay Estimated LOS: Convalescent Care Less Than 30 days Type of Care Needed: Skilled Rehab Potential: Good Prognosis: Good Additional Orders/Day of Discharge Day of Discharge: 03/08/23 Dietary and Speech Recommendations Dietitian Recommendations/Changes: ADAT to 1800 CCD, SOY diet with texture/consistency per [employer] to manage medical conditions. Per family pt needs ground meats. Continue 120mL Glucerna 4x daily with medpass when diet advances to provide supplemental energy Discharge Plan Admission Admit Date/Time: 03/06/23 16:38 Attending Provider: Mauricio Otoole Primary Care Provider: Mike Salas Consulting Providers: Cele Mills; Bello Frias Discharge Orders/Prescriptions Prescriptions: New aspirin 81 mg Tablet,Chewable 81 mg PO BREAKFAST Qty: 0 0RF atorvastatin 40 mg Tablet 40 mg PO QHS Qty: 0 0RF Continued nitroglycerin 0.4 mg tablet, sublingual 0.4 mg SUBLINGUAL Q5M PRN (Reason: Chest Pain) Qty: 25 3RF prednisone 5 mg tablet 2.5 mg PO BREAKFAST Hold Instructions: not taking acetaminophen 500 mg Tablet 500 mg PO Q6H PRN (Reason: Pain) levothyroxine 100 mcg tablet 100 mcg PO DAILY Patient Comments: TAKE 1 TABLET BY MOUTH ONCE DAILY colchicine (gout) 0.6 mg capsule 0.6 mg PO DAILY Hold Instructions: not taking donepezil 5 mg Tablet 5 mg PO DAILY Hold Instructions: not taking Glucerna 1.2 Smith 0.06-1.2 gram-kcal/mL Liquid 120 ml PO 4X/DAY Qty: 0 0RF insulin lispro [Humalog KwikPen Insulin] 100 unit/mL Insulin Pen See Rx Instructions subcut TIDAC Protocol: 3. Sliding Scale Insulin Med Dosing Condition: 150-189 mg/dl = 1 unit Condition: 190-229 mg/dl = 2 units Condition: 230-269 mg/dl = 3 units Condition: 270-309 mg/dl = 4 units Condition: 310-349 mg/dl = 5 units Condition: 350-399 mg/dl = 6 units Condition: 400-449 mg/dl = 7 units Condition: Greater than 449 call physician Protocol Text: - Use for Total Daily Dose of Insulin 37-55 units - Obsese, infected, or steroid patients MEDIUM DOSING ALGORITHIM Patient Comments: 5 units in the am, 8 u for lunch, 5u dinner Rx Instructions: subcutaneously three times daily before meals; insulin glargine-yfgn 100 unit/mL (3 mL) Insulin Pen 1 unit subcut QHS Patient Comments: gives 15-25 units depends on what his sugar is allopurinol 100 mg tablet 50 mg PO DAILY PRN (Reason: gout) lorazepam 0.5 mg tablet 0.5 mg PO QHS PRN PRN (Reason: sleep) Qty: 10 0RF Hold Instructions: not taking metoprolol succinate 50 mg tablet extended release 24 hr See Rx Instructions .ROUTE .COMPLEX Qty: 90 3RF Dose Instruction: TAKE 1 TABLET BY MOUTH ONCE DAILY FOR THE HEART. Rx Instructions: TAKE 1 TABLET BY MOUTH ONCE DAILY FOR THE HEART. Referrals / Follow Up: Mike Salas MD [Primary Care Provider] - Disposition Disposition (needs filled in before D/C Order can be placed): Alf Facility
--- NOTE | 2023-03-08 14:37 | PCM.DC.SUM ---
Providers Date of Admission: 03/06/23 Primary Care Physician: Dr. Mike Salas MD Reason For Visit: TIA Diagnosis Discharge Diagnosis (1) Brain TIA: Status: Acute Code(s): G45.9 - Transient cerebral ischemic attack, unspecified Medications at Discharge Home Medications nitroglycerin 0.4 mg sublingual tablet 0.4 mg sublingual Q5M PRN Chest Pain #25 tabs 11/06/18 acetaminophen 500 mg tablet 500 mg PO Q6H PRN Pain 04/12/22 levothyroxine 100 mcg tablet 100 mcg PO DAILY THYROID 04/12/22 colchicine (gout) 0.6 mg capsule 0.6 mg PO DAILY GOUT 06/15/22 donepezil 5 mg tablet 5 mg PO DAILY 06/17/22 nutrition tx glu intol,lac-free,soy-fiber 0.06 gram-1.2 kcal/mL liquid (Glucerna 1.2 Smith) 120 ml PO 4X/DAY #0 mL 06/19/22 prednisone 5 mg tablet 2.5 mg PO BREAKFAST 09/15/22 metoprolol succinate 50 mg tablet,extended release 24 hr See Rx Instructions .Route .COMPLEX #90 TABLETS 10/30/22 lorazepam 0.5 mg tablet 0.5 mg PO QHS PRN PRN sleep #10 tabs 01/09/23 allopurinol 100 mg tablet 50 mg PO DAILY PRN gout 03/04/23 insulin glargine-yfgn 100 unit/mL (3 mL) subcutaneous pen 1 unit subcut QHS 03/04/23 insulin lispro 100 unit/mL subcutaneous pen (Humalog KwikPen (U-100) Insulin) See Rx Instructions subcut TIDAC 03/04/23 aspirin 81 mg chewable tablet 81 mg PO BREAKFAST #0 tabs 03/08/23 atorvastatin 40 mg tablet 40 mg PO QHS #0 tabs 03/08/23 Hospital Course Operations None Procedures None Summary of Care Provided Minutes Spent on Discharge: 40 Hospital Course: Per HPI: The patient is an 87 y/o M w/ PMHx: Dementia unclear type with unclear behavioral disturbance history, PMR, CKD stage IIIb reported prior possibly advancing to IV, Chronic anemia, HTN, HLD, JESSICA, Seizure disorder, CAD s/p PCI JOCELYN ramus 10/31/10, GERD w/ esophageal strictures s/p dilation, Hx TIA, Gout, Diabetes mellitus type II who presents to the [facility] ED on 03/04/23 as a stroke alert with history of onset right-sided facial droop as well as right-sided weakness in addition to aphasia and altered slurred speech with reportedly weakness primarily in the right upper extremity starting at approximately 6 PM on day of presentation with symptoms resolving on route with EMS with NIH stroke scale upon presentation 0. Patient reports patient is improved. Daughter is also present and states that over the last month she has seen her father significantly decline. reports that he primarily uses the restroom but otherwise is not very interactive. Work-up in the ED included T98.1, heart rate 78, BP 147/81, respiratory rate 18, 100% room air, CBC with WBC 5.5, hemoglobin 12.4, MCV 94.2, platelet 123 without marked shift, unremarkable coags, MP with chloride 112, BUN/creatinine 54/2.39, glucose 116, troponin 6, CT of the brain with no acute hemorrhage detected, a left-sided posterior temporal lobe hypodensity and high parietal hypodensity possibly chronic however acute/subacute process not excluded particularly at the posterior left temporal region, CTA head and neck with no significant stenosis or aneurysmal dilatation and no evidence of any large vessel occlusion EKG with sinus rhythm with no acute evidence of ischemia of note most recent CT of the brain prior to current presentation 01/09/2023 reporting areas of decreased attenuation within the white matter tracts of the supratentorial brain consistent with microvascular disease changes as well as small punctate calcifications in the basal ganglia considered a normal aging variants with normal brainstem and normal cerebellum with no acute findings which is very different than the current reported CT. Hospital Course: 1. Acute left frontal cortex CVA/dementia?87-year-old male presented to the hospital with a right facial droop and aphasia. His says that this was new for him and he has had intermittent episodes of this but it had never been this bad which is why she brought him in. Initial MRI was unremarkable and did not demonstrate a stroke though teleneurology wanted to rule out the possibility of a mass as the initial MRI was read as an old left frontal parietal and temporal infarcts. The repeat MRI with and without contrast demonstrated a new acute left frontal cortex stroke. He has not been very compliant with his medications as apparently his PCP took him off of the statin and he was not taking his aspirin regularly. We will continue with the p.o. aspirin as well as a statin discharge. He was evaluated by PT/OT who felt that he would [facility] and this was discussed with him and his and they both agreed for placement. I discussed with him as well as his and son the plan for possible discharge today and expressed understanding of the risk benefits going to SNF and would like for him to go today. Given the findings of the initial stroke as well as a repeat stroke his dementia is likely vascular in origin this was discussed with the family as well. He has had chronic swallowing difficulties though this has been managed with dietary adjustments at home and he appears to be doing well here today. All of his symptoms have resolved prior to discharge. 2. Coronary artery disease status post stent, hypertension, hyperlipidemia, type 2 diabetes, GERD, polymyalgia rheumatica, hypothyroidism, gout, JESSICA are chronic medical conditions which complicate his care. His home medications were continued where appropriate Physical Exam Narrative General: Alert, Oriented x2, Cooperative, No apparent distress HEENT: Atraumatic, PERRLA, EOMI, Normocephalic Oral: Moist Mucosa Neck: Supple, No JVD Lungs: Dashed, Normal air movement, No rhonchi, No wheeze, No rales Cardiovascular: Regular rate, Regular Rhythm, Normal S1, Normal S2, No murmurs Abdomen: Soft, Non Tender, Non-Distended, No Hepato-splenomegaly Extremities: No edema, Capillary Refill Less than 3 Seconds Skin: No rashes, No breakdown Musculoskeletal: No Tenderness to Palpation of Joints or Extremities Neurological: Cranial nerves II-XII grossly intact, moves all extremities, Sensory exam intact to light touch and pain Psych/Mental Status: Normal affect Weight / BMI Weight Weight: 157 lb 3.033 oz Body Mass Index (BMI) 24.6 ABG / Lab / Microbiology Data 03/05/23 05:35 03/06/23 07:24 Laboratory: Laboratory Results - last 24 hr 03/07/23 17:09: POC Glucose 131 H 03/07/23 22:30: POC Glucose 218 H 03/08/23 06:13: POC Glucose 152 H 03/08/23 12:04: POC Glucose 161 H Meaningful Use Info Meaningful Use Diagnoses (Choose all that apply): None applicable Discharge Plan Admission Admit Date/Time: 03/06/23 16:38 Attending Provider: Mauricio Otoole Primary Care Provider: Mike Salas Consulting Providers: Cele Mills; Bello Frias Discharge Orders/Prescriptions Prescriptions: New aspirin 81 mg Tablet,Chewable 81 mg PO BREAKFAST Qty: 0 0RF atorvastatin 40 mg Tablet 40 mg PO QHS Qty: 0 0RF Continued nitroglycerin 0.4 mg tablet, sublingual 0.4 mg SUBLINGUAL Q5M PRN (Reason: Chest Pain) Qty: 25 3RF prednisone 5 mg tablet 2.5 mg PO BREAKFAST Hold Instructions: not taking acetaminophen 500 mg Tablet 500 mg PO Q6H PRN (Reason: Pain) levothyroxine 100 mcg tablet 100 mcg PO DAILY Patient Comments: TAKE 1 TABLET BY MOUTH ONCE DAILY colchicine (gout) 0.6 mg capsule 0.6 mg PO DAILY Hold Instructions: not taking donepezil 5 mg Tablet 5 mg PO DAILY Hold Instructions: not taking Glucerna 1.2 Smith 0.06-1.2 gram-kcal/mL Liquid 120 ml PO 4X/DAY Qty: 0 0RF insulin lispro [Humalog KwikPen Insulin] 100 unit/mL Insulin Pen See Rx Instructions subcut TIDAC Protocol: 3. Sliding Scale Insulin Med Dosing Condition: 150-189 mg/dl = 1 unit Condition: 190-229 mg/dl = 2 units Condition: 230-269 mg/dl = 3 units Condition: 270-309 mg/dl = 4 units Condition: 310-349 mg/dl = 5 units Condition: 350-399 mg/dl = 6 units Condition: 400-449 mg/dl = 7 units Condition: Greater than 449 call physician Protocol Text: - Use for Total Daily Dose of Insulin 37-55 units - Obsese, infected, or steroid patients MEDIUM DOSING ALGORITHIM Patient Comments: 5 units in the am, 8 u for lunch, 5u dinner Rx Instructions: subcutaneously three times daily before meals; insulin glargine-yfgn 100 unit/mL (3 mL) Insulin Pen 1 unit subcut QHS Patient Comments: gives 15-25 units depends on what his sugar is allopurinol 100 mg tablet 50 mg PO DAILY PRN (Reason: gout) lorazepam 0.5 mg tablet 0.5 mg PO QHS PRN PRN (Reason: sleep) Qty: 10 0RF Hold Instructions: not taking metoprolol succinate 50 mg tablet extended release 24 hr See Rx Instructions .ROUTE .COMPLEX Qty: 90 3RF Dose Instruction: TAKE 1 TABLET BY MOUTH ONCE DAILY FOR THE HEART. Rx Instructions: TAKE 1 TABLET BY MOUTH ONCE DAILY FOR THE HEART. Referrals / Follow Up: Mike Salas MD [Primary Care Provider] - Disposition Disposition (needs filled in before D/C Order can be placed): Shelter Facility Charges/Coding Visit Charges Inpatient E&M: 09738 Disch Hosp >30min
--- NOTE | 2023-03-08 14:47 | CASEMGMT ---
SW spoke with patient and his . They were aware patient was going to go to [facility] today. SW completed a 7000 in [email or web address] system. Plan: d/c to [facility] under skilled level of care on a convalescent stay. [facility] will transport via cot. Christine SMITH
--- NOTE | 2023-03-08 16:13 | PHA.DC.MR.R ---
Pharmacy [place] Med Reconciliation Pharmacy Service has performed discharge medication reconciliation for this patient upon transfer to SNF. The patient's discharge medication list was reviewed for discrepancies and discrepancies were resolved. Medications at Discharge Home Medications nitroglycerin 0.4 mg sublingual tablet 0.4 mg sublingual Q5M PRN Chest Pain #25 tabs 11/06/18 acetaminophen 500 mg tablet 500 mg PO Q6H PRN Pain 04/12/22 levothyroxine 100 mcg tablet 100 mcg PO DAILY THYROID 04/12/22 colchicine (gout) 0.6 mg capsule 0.6 mg PO DAILY GOUT 06/15/22 donepezil 5 mg tablet 5 mg PO DAILY 06/17/22 nutrition tx glu intol,lac-free,soy-fiber 0.06 gram-1.2 kcal/mL liquid (Glucerna 1.2 Smith) 120 ml PO 4X/DAY #0 mL 06/19/22 prednisone 5 mg tablet 2.5 mg PO BREAKFAST 09/15/22 metoprolol succinate 50 mg tablet,extended release 24 hr See Rx Instructions .Route .COMPLEX #90 TABLETS 10/30/22 lorazepam 0.5 mg tablet 0.5 mg PO QHS PRN PRN sleep #10 tabs 01/09/23 allopurinol 100 mg tablet 50 mg PO DAILY PRN gout 03/04/23 insulin glargine-yfgn 100 unit/mL (3 mL) subcutaneous pen 1 unit subcut QHS 03/04/23 insulin lispro 100 unit/mL subcutaneous pen (Humalog KwikPen (U-100) Insulin) See Rx Instructions subcut TIDAC 03/04/23 aspirin 81 mg chewable tablet 81 mg PO BREAKFAST #0 tabs 03/08/23 atorvastatin 40 mg tablet 40 mg PO QHS #0 tabs 03/08/23
--- NOTE | 2023-03-08 16:20 | CASEMGMT ---
Discharge Planning Discharge orders, signed med list, covid results, and transport time sent to [facility] via [facility]. [facility] will transport patient by cot at 6:30p. Nursing, SW, patient and his updated. Dixie Grady, Discharge Planning Asst.
[2023-03-08 18:33] LABS: Bedside Glucose 139 mg/dL (74-106)
--- NOTE | 2023-03-08 18:33 | NURSING ---
called report to Sonja at [facility]
== END 2023-03-08 19:00 | disposition skilled nursing facility (03) | DRG 66 ==
LOC: ED 20:07 → PCU 20:17
PROVIDERS: Internal Medicine; Admitting Provider Family Medicine; Emergency Provider Emergency Medicine; PCP Family Medicine; Visit Provider Family Medicine
DX: I63.9 Cerebral infarction, unspecified (principal); E03.9 Hypothyroidism, unspecified; E11.22 Type 2 diabetes mellitus with diabetic chronic kidney disease; E11.42 Type 2 diabetes mellitus with diabetic polyneuropathy; F01.50 Vascular dementia, unspecified severity, without behavioral disturbance, psychotic disturbance, mood disturbance, and anxiety; G40.909 Epilepsy, unspecified, not intractable, without status epilepticus; N18.32 Chronic kidney disease, stage 3b; G83.21 Monoplegia of upper limb affecting right dominant side; Z79.4 Long term (current) use of insulin; M35.3 Polymyalgia rheumatica; I12.9 Hypertensive chronic kidney disease with stage 1 through stage 4 chronic kidney disease, or unspecified chronic kidney disease; E78.00 Pure hypercholesterolemia, unspecified; I25.10 Atherosclerotic heart disease of native coronary artery without angina pectoris; M10.9 Gout, unspecified; G47.33 Obstructive sleep apnea (adult) (pediatric); K21.9 Gastro-esophageal reflux disease without esophagitis; R13.10 Dysphagia, unspecified; R47.81 Slurred speech; R29.810 Facial weakness; R29.700 NIHSS score 0; Z66 Do not resuscitate; Z79.52 Long term (current) use of systemic steroids; Z79.82 Long term (current) use of aspirin; Z79.890 Hormone replacement therapy; Z79.899 Other long term (current) drug therapy; Z86.73 Personal history of transient ischemic attack (TIA), and cerebral infarction without residual deficits; Z95.5 Presence of coronary angioplasty implant and graft
CPT/HCPCS: 36415; 70450; 70496; 70498; 70551; 70553; 71045; 74230; 80048; 80053; 82962; 83036; 83735; 84439; 84443; 84484; 85025; 85610; 85730; 87426; 92526; 92610; 92611; 93005; 94668; 94762; 95819; 97110; 97162; 97166; 97530; 97535; 97802; 99285; A9575; J7030; Q9967; A4216; J7799

== ENCOUNTER 2023-04-19 12:04 | Outpatient (RCR) | payer MEDICARE, SELFPAY ==
[2023-04-19 13:25] LABS: Color, Urine Yellow (Yellow); Glucose, Dipstick Normal (Normal); Ketone-Dipstick Negative (Negative); Leukocyte Esterase-Dipstick Negative /ul (Negative); Nitrite-Dipstick Negative (Negative); Occult Blood-Urine 25 /ul (Negative); Protein-Dipstick 500 mg/dl (Negative); Urine Bilirubin Dipstick Negative (Negative); Urine Clarity Clear (Clear); Urine Urobilinogen Normal (Normal)
== END 2023-05-10 18:00 | disposition home or self-care (01) ==
LOC: HHLAB 12:04
PROVIDERS: PCP Family Medicine; Visit Provider Family Medicine
DX: I69.314 Frontal lobe and executive function deficit following cerebral infarction (principal)
CPT/HCPCS: 81002; 87086; 87088

== ENCOUNTER 2023-04-28 15:42 | Emergency (ER) | payer MEDICARE, SELFPAY ==
[2023-04-28 15:44] VITALS: BP 148/74; PULSE 87; RESP 16; TEMP 37.2; O2SAT 100
[2023-04-28 15:56] VITALS: PULSE 88; RESP 15
[2023-04-28 16:00] VITALS: BMI 23.8
--- NOTE | 2023-04-28 16:03 | CT_ITS ---
STUDY: CT ABDOMEN AND PELVIS WITHOUT CONTRAST REASON FOR EXAM: Male, 87 years old. RLQ abd pain RADIATION DOSAGE (If Supplied By Facility): CTDIvol = ( 6.30 ) mGy, DLP = ( 332.24 ) mGycm TECHNIQUE: Transaxial images were obtained from the dome of the diaphragm to the symphysis pubis without oral contrast, and without intravenous contrast. Sagittal and coronal images were reconstructed. Individualized dose optimization techniques were used for this CT. COMPARISON: 08/12/2018 FINDINGS: The visualized lung bases are unremarkable. The visualized portions of the heart are within normal limits. Normal liver. There are surgical clips in the gallbladder fossa consistent with a prior cholecystectomy. Normal spleen. Normal pancreas. Normal bilateral adrenal glands. There are multiple well-defined simple-appearing cysts in the bilateral kidneys are redemonstrated and appear similar in appearance, although some cysts have increased in size (poor predictor of clinical significance). No hydronephrosis or urinary tract calcifications. Normal visualized stomach. Normal small intestine. There are multiple colonic diverticula consistent with diverticulosis. The appendix is visualized and appears normal. Atherosclerosis of the abdominal aorta and iliofemoral arteries. Normal inferior vena cava. Normal retroperitoneum. Normal urinary bladder. Small right hydrocele is partially visualized. Operative changes of the abdominal wall. 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 CT/Abdomen/Pelvis without Cont IMPRESSION: 1. No hydronephrosis or urinary tract calcifications. 2. No acute inflammatory process. 3. Small right hydrocele. 4. Chronic changes, as above. Electronically Signed: Radames Mccarthy MD (Brooks) at 17:58 EST ,
--- NOTE | 2023-04-28 16:05 | ED.VIS.GI ---
HPI HPI - GI History of Present Illness Chief Complaint: Abd Pain Informant: patient Abdominal Pain/Flank Pain Onset: Days Context: Gradual Onset Timing: Continuous Quality: Aching Location: RLQ Maximum Severity: Mild Nausea/Vomiting/Emesis GI Symptom: Positive for Nausea; Negative for Vomiting Severity: Mild Diarrhea/Melena/Hematochezia GI Symptom: Negative for Diarrhea, Melena or Hematochezia Associated Symptoms Associated Symptoms: Negative for Dysuria, Frequency, Hematuria or Urgency Narrative Narrative: 87-year-old male denies any prior abdominal surgery for hernia repair. He also has a history of diabetes. Complaining of right-sided abdominal pain for about a week. Nausea but no vomiting. No diarrhea or constipation. No dysuria. No fever or weight change. Denies any abdominal trauma. Prior similar symptoms: No Recent Illness/Hospitalization: No PFSH PFSH Medical History Ambulates with cane Chronic kidney disease Chronic renal insufficiency Coronary atherosclerosis of [place] coronary artery Cricopharyngeal dysphagia Dementia Essential hypertension Gastric reflux Glucosuria Gout History of diabetes mellitus History of hypertension Hyperlipidemia Hypertension Hypothyroidism Polymyalgia rheumatica PONV (postoperative nausea and vomiting) Presence of stent in coronary artery (~10/31/10) Pure hypercholesterolemia Seizures Sleep apnea Thyroid disease Type II diabetes mellitus Walker as ambulation aid Wears glasses Home Medications nitroglycerin 0.4 mg sublingual tablet 0.4 mg sublingual Q5M PRN Chest Pain #25 tabs 11/06/18 [Rx Last Taken Unknown] acetaminophen 500 mg tablet 500 mg PO Q6H PRN Pain 04/12/22 [History Last Taken 06/14/22 19:30] levothyroxine 100 mcg tablet 100 mcg PO DAILY THYROID 04/12/22 [History Last Taken 06/14/22] colchicine 0.6 mg capsule 0.6 mg PO DAILY GOUT 06/15/22 [History Last Taken 06/12/22] donepezil 5 mg tablet 5 mg PO DAILY 06/17/22 [History Last Taken Unknown] nutrition tx glu intol,lac-free,soy-fiber 0.06 gram-1.2 kcal/mL liquid (Glucerna 1.2 Smith) 120 ml PO 4X/DAY #0 mL 06/19/22 [Rx Last Taken Unknown] metoprolol succinate 50 mg tablet,extended release 24 hr See Rx Instructions .Route .COMPLEX #90 TABLETS 10/30/22 [Rx Last Taken Unknown] lorazepam 0.5 mg tablet 0.5 mg PO QHS PRN PRN sleep #10 tabs 01/09/23 [Rx Last Taken Unknown] insulin glargine-yfgn 100 unit/mL (3 mL) subcutaneous pen 1 unit subcut QHS 03/04/23 [History Last Taken Unknown] insulin lispro 100 unit/mL subcutaneous pen (Humalog KwikPen (U-100) Insulin) See Rx Instructions subcut TIDAC 03/04/23 [History Last Taken Unknown] aspirin 81 mg chewable tablet 81 mg PO BREAKFAST #0 tabs 03/08/23 [Rx Last Taken Unknown] Allergy/AdvReac Type Severity Reaction Status Date / Time clopidogrel bisulfate Allergy Rash Verified 04/28/23 15:43 [From Plavix] cyclobenzaprine Allergy Rash Verified 04/28/23 15:43 [Cyclobenzaprine] fluoxetine HCl [From Prozac] Allergy Rash Verified 04/28/23 15:43 Family History Father Diabetes Mother Diabetes Surgical History H/O percutaneous transluminal coronary angioplasty History of back surgery History of cholecystectomy History of esophageal dilatation (~07/2021) Presence of coronary angioplasty implant and graft (~10/31/10) toenail removed Social History household members: spouse housing: house other: Typically ambulates with a cane however most recently with a walker seconda Smoking Status: Never smoker alcohol intake: never substance use type: does not use caffeine: Yes Type: tea Number of servings: 1 what type of physical activity do you participate in: none ROS ROS ED ROS Narrative Abdominal pain. Nausea. Review of Systems ROS Unobtainable: Denies due to encephalopathy Constitutional Constitutional ED: Denies fever(s) ENT ENT ED: Denies ear pain Cardiovascular Cardiovascular: Denies chest pain Respiratory/Chest Respiratory/Chest: Denies cough Gastrointestinal Gastrointestinal: Reports abdominal pain and nausea; Denies constipation, diarrhea, melena or vomiting Genitourinary Genitourinary ED: Denies dysuria or hematuria Musculoskeletal Musculoskeletal: Denies arthralgias Integumentary Denies abscess Neurologic Neurologic: Denies headache(s) Psychiatric Psychiatric: Denies anxiety Endocrine Endocrinology: Denies polydipsia Hematologic/Lymphatic Hematologic/Lymphatic: Denies easy bleeding Allergic/Immunologic Allergic/Immunologic ED: Denies mouth swelling EXAM Physical Exam Narrative Exam Narrative: Well-appearing 87-year-old male. Vital signs are stable. Afebrile. Pulse ox 100% on room air no signs of hypoxia. H EENT exam unremarkable. Moist mucous membranes. Neck nontender no JVD. Lungs clear to auscultation bilaterally. Heart regular rhythm no murmur. Abdomen soft, nondistended, normal bowel sounds without peritoneal signs. Mild right lower quadrant tenderness. Not specifically McBurney's point. No hernia or mass. No distention. No pulsatile mass. Right upper and both left-sided quadrants are nontender. Moving all 4 extremities. Nontender no edema. Neurologically is awake and alert with no focal motor deficits. Back is nontender. Const Vital Signs: 04/28/23 15:44 04/28/23 15:56 Temperature 98.9 F Temperature Source Temporal Pulse Rate 87 88 Respiratory Rate 16 15 Blood Pressure 148/74 H Blood Pressure Mean 98 Pulse Ox 100 Oxygen Delivery Method Room Air Positive well nourished and well developed; Negative for obese, cachectic, contractures or unkempt General Appearance ED: well developed and NAD; Negative for unkempt, cachectic, contractures or pallor Nutritional Appearance: Negative for cachectic or obese HEENT Reports moist mucous membranes normocephalic and atraumatic; Negative for trauma or tenderness Eyes PERRL and EOMs intact bilaterally General Eye ED: Negative for pale conjunctiva or scleral icterus Neck no lymphadenopathy, supple and no JVD General: Negative for tenderness Carotids: Negative for other Lymph Lymphatic: Negative for other Resp normal respiratory effort and clear to auscultation bilaterally Effort and Inspection: Negative for respiratory distress Auscultation: Negative for rales, rhonchi or wheezes Cardio regular rate, regular rhythm, S1 normal heart sound, S2 normal heart sound and no murmurs Rate: Negative for bradycardia or tachycardic Rhythm: Negative for abnormal rhythm GI non-distended and no masses; Negative for non-tender Inspection: Negative for abdominal distention Auscultation: normoactive bowel sounds Palpation: soft and tender; Negative for guarding, rigid, hepatomegaly, splenomegaly, hernia, mass, pulsatile mass or rebound tenderness present Back/Spine no CVA tenderness General Back: Negative for CVA tenderness Cervical Spine: Negative for cervical spine tenderness Thoracic Spine / Upper Back: Negative for thoracic spinal tenderness Lumbar Spine / Lower Back: Negative for lumbar spinal tenderness Coccyx: Negative for other Extremity full ROM General Extremety ED: Negative for edema or tenderness General Extremity: Negative for edema Neuro CN's II-XII intact bilaterally and moves all extremities Sensorium / Orientation: alert, oriented to person and oriented to place Motor Exam: strength 5/5 throughout Psych mental status grossly normal and thought process normal Appearance: Negative for unkempt Attitude: No agitated Mood & Affect: Negative for depressed, anxious or tearful Skin no wounds General Skin Exam: Negative for jaundice or pallor Lesions: no lesions Rashes: no rashes Trauma: Negative for abrasion Nails: Negative for discolored MDM MDM MDM Narrative Medical decision making narrative: 79-year-old male with right lower abdominal pain. CAT scan labs pending. Differential would include appendicitis Kavya's less likely due to this pain being a week. Diverticulitis, UTI, kidney stone. No obvious hernia on exam. He does not need any for pain. Repeat exam patient is doing well at 6:05 PM. Other than his acute on chronic renal insufficiency his labs were all chronic. CAT scan showed no significant abnormalities it was done without contrast due to his kidney function. He will be discharged home. Tylenol for pain. Outpatient follow-up with care patient. Currently his exam benign. History & Record Review Discussion w/independent historian: Patient Additional record(s) reviewed:: Prior inpatient record Lab Data Attestation: I reviewed the patient's lab results. Lab results narrative: CBC shows a white count of 4.6. H&H 12.5 and 30.5 which is his baseline chronic anemia. Platelets 112,000. Chemistries show a gap of 7. BUN of 49 creatinine 2.58 which is worse than his baseline renal insufficiency. Glucose 195. Liver enzymes normal. Lipase normal at 73. Urinalysis is normal. No white or red cells. No bacteria nor nitrates. Labs: Laboratory Results - last 24 hr 04/28/23 04/28/23 16:21 16:40 WBC 4.6 RBC 4.22 L Hgb 12.5 L Hct 38.5 L MCV 91.2 MCH 29.6 MCHC 32.5 RDW Std Deviation 44.3 H RDW Coeff of Sea 13.4 Plt Count 112 L MPV 12.0 Immature Gran % (Auto) 1.100 H Neut % (Auto) 55.9 Lymph % (Auto) 17.[address] % (Auto) 23.2 H Eos % (Auto) 1.9 Baso % (Auto) 0.4 Absolute Neuts (auto) 2.6 Absolute Lymphs (auto) 0.81 L Nucleated RBC % 0 Sodium 142 Potassium 4.6 Chloride 110 H Carbon Dioxide 25.0 Anion Gap 7 BUN 49 H Creatinine 2.58 H Estim Creat Clear Calc 19.15 Est GFR (MDRD) Af Amer 30 L Est GFR (MDRD) Non-Af 25 L BUN/Creatinine Ratio 19.0 Glucose 195 H Calcium 8.5 Total Bilirubin 0.40 AST 22 ALT 26 Alkaline Phosphatase 98 Total Protein 7.3 Albumin 3.5 Globulin 3.8 Albumin/Globulin Ratio 0.9 Lipase 73 Urine Color Yellow Urine Clarity Clear Urine pH 6.0 Ur Specific [place] 1.020 Urine Protein 500 H Urine Glucose (UA) 50 H Urine Ketones Negative Urine Occult Blood 25 H Urine Nitrite Negative Urine Bilirubin Negative Urine Urobilinogen Normal Ur Leukocyte Esterase Negative Urine RBC 0 SEEN Urine WBC 0-5 SEEN Ur Squamous Epith Cells 0-5 SEEN Urine Bacteria 0 SEEN Urine Mucus 0 SEEN Radiography Diagnostic Testing: Clinical Impression(s) from Imaging Studies Abdomen/Pelvis CT 04/28/23 16:03 IMPRESSION: 1. No hydronephrosis or urinary tract calcifications. 2. No acute inflammatory process. 3. Small right hydrocele. 4. Chronic changes, as above. Electronically Signed: Radames Mccarthy MD ([place]) at 17:58 EST Reading Location ID and State: [facility] / [place] , Service support , Discharge Plan Triage Chief Complaint: Abd Pain ED Provider: Ray Barbosa Dx/Rx/DC Orders Clinical Impression: Abdominal pain, History of diabetes mellitus, History of chronic kidney disease Instructions: Abdominal Pain Prescriptions: No Action nitroglycerin 0.4 mg tablet, sublingual 0.4 mg SUBLINGUAL Q5M PRN (Reason: Chest Pain) Qty: 25 3RF acetaminophen 500 mg Tablet 500 mg PO Q6H PRN (Reason: Pain) levothyroxine 100 mcg tablet 100 mcg PO DAILY Patient Comments: TAKE 1 TABLET BY MOUTH ONCE DAILY colchicine 0.6 mg capsule 0.6 mg PO DAILY Hold Instructions: not taking donepezil 5 mg Tablet 5 mg PO DAILY Hold Instructions: not taking Glucerna 1.2 Smith 0.06-1.2 gram-kcal/mL Liquid 120 ml PO 4X/DAY Qty: 0 0RF insulin lispro [Humalog KwikPen Insulin] 100 unit/mL Insulin Pen See Rx Instructions subcut TIDAC Protocol: 3. Sliding Scale Insulin Med Dosing Condition: 150-189 mg/dl = 1 unit Condition: 190-229 mg/dl = 2 units Condition: 230-269 mg/dl = 3 units Condition: 270-309 mg/dl = 4 units Condition: 310-349 mg/dl = 5 units Condition: 350-399 mg/dl = 6 units Condition: 400-449 mg/dl = 7 units Condition: Greater than 449 call physician Protocol Text: - Use for Total Daily Dose of Insulin 37-55 units - Obsese, infected, or steroid patients MEDIUM DOSING ALGORITHIM Patient Comments: 5 units in the am, 8 u for lunch, 5u dinner Rx Instructions: subcutaneously three times daily before meals; insulin glargine-yfgn 100 unit/mL (3 mL) Insulin Pen 1 unit subcut QHS Patient Comments: gives 15-25 units depends on what his sugar is aspirin 81 mg Tablet,Chewable 81 mg PO BREAKFAST Qty: 0 0RF lorazepam 0.5 mg tablet 0.5 mg PO QHS PRN PRN (Reason: sleep) Qty: 10 0RF Hold Instructions: not taking metoprolol succinate 50 mg tablet extended release 24 hr See Rx Instructions .ROUTE .COMPLEX Qty: 90 3RF Dose Instruction: TAKE 1 TABLET BY MOUTH ONCE DAILY FOR THE HEART. Rx Instructions: TAKE 1 TABLET BY MOUTH ONCE DAILY FOR THE HEART. Primary Care Provider: Mike Salas Referrals: Mike Salas MD [Primary Care Provider] - 3-5 Days if not improving Activity Restrictions/Additional Instructions: Plenty of fluids and rest. Follow-up with your doctor to be reevaluated and have your kidney function rechecked in several weeks. Disposition Disposition: Home, Self Care
[2023-04-28] MEDS: Ondansetron 4 MG/2 ML Vial IV (16:19)
[2023-04-28] MEDS: Morphine 4 MG/ML Syringe IV (16:20)
[2023-04-28 16:36] LABS: Absolute Lymphocyte Count 0.81 X10^3/uL (0.83-4.51); Absolute Neutrophil Count 2.6 X10^3/uL (2.0-7.7); Basophil# 0.02 X10^3/uL; Basophil% 0.4 % (0-1); Eosinophil# 0.09 X10^3/uL; Eosinophils% 1.9 % (0-5); Hematocrit 38.5 % (40-54); Hemoglobin 12.5 g/dL (13.0-16.5); Lymphocyte # 0.81 X10^3/ul (0.83-4.51); Lymphocyte % 17.5 % (19-41); Mean Corp Hgb Conc 32.5 g/dL (32-36); Mean Corpuscular Hgb 29.6 pg (27.0-32.0); Mean Corpuscular Volume 91.2 fL (80-94); Monocyte# 1.07 X10^3/uL; Monocyte% 23.2 % (0-10); NRBC Flagged by Analyzer 0 % (0-5); Neutrophil # 2.58 X10^3/uL (2.7-7.7); Neutrophil % 55.9 % (47-70); Platelet Count 112 K/mm3 (150-450); RBC Distribution Width CV 13.4 % (11.6-14.6); RBC Distribution Width SD 44.3 fl (35.1-43.9); Red Blood Count 4.22 M/mm3 (4.6-6.2); White Blood Count 4.6 K/mm3 (4.4-11.0)
[2023-04-28 16:43] LABS: Bacteria 0 SEEN /hpf (None Seen); Mucous, Urine 0 SEEN /hpf (<or=2+); Red Blood Cells-Urine 0 SEEN /hpf (0-5)
[2023-04-28 16:50] LABS: Color, Urine Yellow (Yellow); Glucose, Dipstick 50 mg/dl (Normal); Ketone-Dipstick Negative (Negative); Leukocyte Esterase-Dipstick Negative /ul (Negative); Nitrite-Dipstick Negative (Negative); Occult Blood-Urine 25 /ul (Negative); Protein-Dipstick 500 mg/dl (Negative); Urine Bilirubin Dipstick Negative (Negative); Urine Clarity Clear (Clear); Urine Urobilinogen Normal (Normal)
[2023-04-28 17:01] LABS: ALB/GLOB Ratio 0.9 RATIO (0.9-2.4); AST(SGOT) 22 U/L (15-37); Alanine Aminotransfer ALT/SGPT 26 U/L (16-61); Albumin, Serum 3.5 g/dL (3.2-5.0); Alkaline Phosphatase 98 U/L (45-117); Anion Gap 7 (5-15); BUN 49 mg/dL (7-18); Calcium,Total 8.5 mg/dL (8.5-10.1); Chloride 110 mmol/L (98-107); Creatinine, Serum 2.58 mg/dL (0.70-1.30); EST Glomerular Filtration Rate 25 mL/min (>60); Est Glom Filt Rate - Afr Amer 30 mL/min (>60); Estimated Creatinine Clearance 19.15 ml/min; Globulin 3.8 g/dL (2.2-4.2); Glucose 195 mg/dL (74-106); Lipase 73 U/L (13-75); Potassium 4.6 mmol/L (3.5-5.1); Protein, Total 7.3 g/dL (6.4-8.2); Sodium Level 142 mmol/L (136-145)
[2023-04-28 17:04] LABS: Squamous Epithelial Cells - UA 0-5 SEEN /hpf (0-5); White Blood Cells 0-5 SEEN /hpf (0-5)
[2023-04-28 18:40] VITALS: RESP 16
== END 2023-04-28 18:41 | disposition home or self-care (01) ==
PROVIDERS: Emergency Provider Emergency Medicine; PCP Family Medicine; Visit Provider Emergency Medicine
DX: R10.31 Right lower quadrant pain (principal); E11.22 Type 2 diabetes mellitus with diabetic chronic kidney disease; Z79.4 Long term (current) use of insulin; R11.0 Nausea; I25.10 Atherosclerotic heart disease of native coronary artery without angina pectoris; I12.9 Hypertensive chronic kidney disease with stage 1 through stage 4 chronic kidney disease, or unspecified chronic kidney disease; N18.9 Chronic kidney disease, unspecified; E78.00 Pure hypercholesterolemia, unspecified; E03.9 Hypothyroidism, unspecified; Z79.890 Hormone replacement therapy; Z79.899 Other long term (current) drug therapy
CPT/HCPCS: 74176; 80053; 81001; 83690; 85025; 96374; 96375; 99284; A4216; J2405

== ENCOUNTER → 2023-06-14 | Outpatient (CLI) | payer MEDICARE, SELFPAY ==
--- OUTSIDE RECORDS SUMMARY | 2023-06-14 18:22 | XMS RPT_ITS | CCD ---
Author Name Unknown Address [address] [place] [address] Organization [facility] Care Team Providers Care Pumper Gauger Name Role Phone Brando Pérez Unavailable Unavailable Brando Pérez Unavailable Unavailable Omi LPN, Chloe N Unavailable Unavailab lj Braga LPN, Chloe Lynne Unavailable Unavailab Lauren Barlow Unavailable Unavailable Lauren Beasley Unavailable Unavailable Allergies Allergy Classification Reported Allergen(s) Allergy Type Date of Onset Reaction(s) Facility (6 sources) clopidogrel Drug Allergy 01-04-2011 Rash [facility] Work Phone: (6 sources) cyclobenzaprine Drug Allergy 10-18-2016 [facility] Work Phone: (6 sources) FLUoxetine Drug Allergy 10-03-2010 Rash [facility] Work Phone: Medications Completed/Discontinued Medications Medication Drug Class(es) Dates Sig (Normalized) Sig (Original) allopurinol 100 mg oral tablet (12 sources) Xanthine Oxidase Inhibitor Start: 05-27-2014 take 1 tablet by mouth once daily ALLOPURINOL 100 MG TABS One tablet by mouth daily ALLOPURINOL [id number] Marisol Rodriguez PA-C aspirin 81 mg oral tablet (20 sources) Platelet Aggregation Inhibitor, Nonsteroidal Anti-inflammatory Drug Start: 05-15-2013 take 1 tablet by mouth once daily ADULT ASPIRIN EC LOW STRENGTH 81 MG TBEC One tablet by mouth daily ASPIRIN [id number] Harumi Y DeFinis Problems Active Problems Problem Classification Problem Date Documented Date Episodic/Chronic Coronary atherosclerosis and other heart disease (18 sources) Atherosclerotic heart disease of [place] coronary artery without angina pectoris; Translations: [Angina pectoris] Onset: 10-03-2010 04-14-2016 Chronic Disorders of lipid metabolism (12 sources) Hyperlipidemia; Translations: [Hypertriglyceridemia ] Onset: 10-03-2010 10-03-2010 Chronic Essential hypertension (6 sources) Hypertensive disorder; Translations: [Essential (primary) hypertension] Onset: 10-03-2010 10-03-2010 Chronic Other upper respiratory disease (6 sources) Allergic rhinitis; Translations: [Allergic rhinitis, unspecified] Onset: 10-18-2016 10-18-2016 Chronic Unclassified (2 sources) Long-term drug therapy; Translations: [Other care home (current) drug therapy] Onset: 10-03-2010 10-03-2010 Past or Other Problems Problem Classification Problem Date Documented Da te Episodic/Chronic Coronary atherosclerosis and other heart disease (6 sources) Coronary angioplasty status; Translations: [Percutaneous transluminal coronary angioplasty status] Onset: 01-04-2011 01-04-2011 Episodic Other aftercare (4 sources) Long-term drug therapy; Translations: [Other care home (current) drug therapy] Onset: 10-03-2010 10-03-2010 Episodic Other lower respiratory disease (6 sources) Cough; Translations: [Cough] Onset: 10-18-2016 10-18-2016 Episodic Other nutritional; endocrine; and metabolic disorders (6 sources) Body mass index (BMI) 29.0-29.9, adult; Translations: [Body Mass Index 29.0-29.9, adult] Onset: 12-01-2013 12-01-2013 Episodic Results Test Name Value Interpretation Reference Range Facil ity Vital Signs Date Time Vital Sign Value Performing Clinician Augustina dillon 04-25-2017 14:36-0500 BMI (Body Mass Index) 28.24 kg/m2 [facility] Work Phone: 04-25-2017 14:36-0500 BP Diastolic 74 mm[Hg] [facility] Work Phone: 04-25-2017 14:36-0500 BP Systolic 144 mm[Hg] [facility] Work Phone: 04-25-2017 14:36-0500 Height 167.64 cm [facility] Work Phone: 04-25-2017 14:36-0500 Pulse (Heart Rate) 72 /min [facility] Work Phone: 04-25-2017 14:36-0500 Respiratory Rate 16 /min [facility] Work Phone: 04-25-2017 14:36-0500 Weight 79.38 kg [facility] Work Phone: 10-27-2016 09:48-0400 Body mass index (BMI) [Ratio] 26.73 kg/m2 [facility] Work Phone: 10-27-2016 09:48-0400 Body weight 75.12 kg [facility] Work Phone: 10-27-2016 09:48-0400 Diastolic blood pressure 76 mm[Hg] [facility] Work Phone: 10-27-2016 09:48-0400 Heart rate 92 /min [facility] Work Phone: 10-27-2016 09:48-0400 Systolic blood pressure 134 mm[Hg] [facility] Work Phone: 10-18-2016 12:06-0400 Body height 167.64 cm Chloe Braga LPN [facility] Work Phone: 10-18-2016 12:06-0400 Body mass index (BMI) [Ratio] 26.63 kg/m2 Chloe Braga LPN [facility] Work Phone: 10-18-2016 12:06-0400 Body temperature 98.1 [degF] Chloe Braga LPN [facility] Work Phone: 10-18-2016 12:06-0400 Body weight 74.84 kg Chloe Braga LPN [facility] Work Phone: 10-18-2016 12:06-0400 Diastolic blood pressure 74 mm[Hg] Chloe Braga LPN [facility] Work Phone: 10-18-2016 12:06-0400 Heart rate 88 /min Chloe Braga LPN [facility] Work Phone: 10-18-2016 12:06-0400 Respiratory rate 15 /min Chloe Braga LPN [facility] Work Phone: 10-18-2016 12:06-0400 SaO2% (BldA) [Mass fraction] 96 % Chloe Braga LPN [facility] Work Phone: 10-18-2016 12:06-0400 Systolic blood pressure 122 mm[Hg] Chloe Braga LPN [facility] Work Phone: 04-21-2016 14:26-0500 Body surface area Derived from formula 1.92 m2 Chloe Braga LPN [facility] Work Phone: Procedures Date Procedure Procedure Detail Performing Clinician Start: 04-25-2017 End: 04-25-2017 Follow Up Appt 6 months Mike Mark MD Start: 04-25-2017 End: 04-25-2017 MMM Mike Mark MD Start: 10-27-2016 End: 10-27-2016 Follow Up Appt 6 months Marisol monet PA-C Work Phone: Start: 10-27-2016 End: 10-27-2016 PFM Marisol Rodriguez PA-C Work Phone: Start: 10-27-2016 End: 10-27-2016 Documentation of current medications Lauren Beasley Start: 10-27-2016 End: 10-27-2016 Follow Up Appt 6 months Marisol monet PA-C Work Phone: Start: 10-27-2016 End: 10-27-2016 PFMckenzie Rodriguez PA-C Work Phone: Start: 10-18-2016 End: 10-18-2016 Dietary management education, guidance, and counseling Chloe Braga ALYSHA Start: 10-18-2016 End: 10-18-2016 Documentation of current medications Chloe Braga ALYSHA Start: 04-21-2016 End: 04-21-2016 Follow Up Appt 6 months Mike Mark MD Start: 04-21-2016 End: 04-21-2016 MMM Mike Mark MD Start: 04-21-2016 End: 04-21-2016 Follow Up Appt 6 months Mike Mark MD Start: 04-21-2016 End: 04-21-2016 MM Mike Mark MD Start: 09-03-2015 End: 09-03-2015 Follow Up Appt 6 months Marisol monet PA-C Work Phone: Start: 09-03-2015 End: 09-03-2015 PF Marisol Rodriguez PA-C Work Phone: Start: 09-03-2015 End: 09-03-2015 Follow Up Appt 6 months Marisol monet PA-C Work Phone: Start: 09-03-2015 End: 09-03-2015 PF Marisol Rodriguez PA-C Work Phone: Start: 01-25-2015 End: 01-26-2015 Documentation of current medications Mike Mark MD Start: 01-25-2015 End: 01-25-2015 Follow Up Appt 6 months Mike Mark MD Start: 01-25-2015 End: 01-25-2015 MM Mike Mark MD Start: 01-25-2015 End: 01-26-2015 Documentation of current medications Mike Mark MD Start: 01-25-2015 End: 01-25-2015 Follow Up Appt 6 months Mike Mark MD Start: 01-25-2015 End: 01-25-2015 MMM Mike Mark MD Start: 01-15-2015 End: 01-15-2015 *Hepatic Function Panel Marisol monet PA-C Work Phone: Start: 01-15-2015 End: 01-15-2015 Lipid 1996 panel - Serum or Plasma Marisol Rodriguez PA-C Work Phone: Start: 01-15-2015 End: 01-15-2015 Hepatic function 2000 panel - Serum or Plasma Marisol Rodriguez PA-C Work Phone: Start: 01-15-2015 End: 01-15-2015 Lipid 1996 panel - Serum or Plasma Marisol Rodriguez PA-C Work Phone: Start: 07-12-2014 End: 08-10-2014 *Hepatic Function Panel Marisol monet PA-C Work Phone: Start: 07-12-2014 End: 08-10-2014 Lipid 1996 panel - Serum or Plasma Marisol Rodriguez PA-C Work Phone: Start: 07-12-2014 End: 08-10-2014 Hepatic function 2000 panel - Serum or Plasma Marisol Rodriguez PA-C Work Phone: Start: 07-12-2014 End: 08-10-2014 Lipid 1996 panel - Serum or Plasma Marisol Rodriguez PA-C Work Phone: Start: 05-27-2014 End: 05-27-2014 Ecg routine ecg w/least 12 lds w/i&r Marisol Rodriguez PA-C Work Phone: Start: 05-27-2014 End: 05-27-2014 Follow Up Appt 6 months Marisol monet PA-C Work Phone: Start: 05-27-2014 End: 05-27-2014 PFM Marisol Rodriguez PA-C Work Phone: Start: 05-27-2014 End: 05-27-2014 Ecg routine ecg w/least 12 lds w/i&r Marisol Rodriugez PA-C Work Phone: Start: 05-27-2014 End: 05-27-2014 Follow Up Appt 6 months Marisol monet PA-C Work Phone: Start: 05-27-2014 End: 05-27-2014 PFM Marisol Rodriguez PA-C Work Phone: Start: 01-09-2014 End: 01-15-2014 *Hepatic Function Panel Marisol monet PA-C Work Phone: Start: 01-09-2014 End: 01-15-2014 Lipid 1996 panel - Serum or Plasma Marisol Rodriguez PA-C Work Phone: Start: 01-09-2014 End: 01-15-2014 Hepatic function 2000 panel - Serum or Plasma Marisol Rodriguez PA-C Work Phone: Start: 01-09-2014 End: 01-15-2014 Lipid 1996 panel - Serum or Plasma Marisol Rodriguez PA-C Work Phone: Start: 12-01-2013 End: 12-01-2013 Follow Up Appt 6 months Mike Mark MD Start: 12-01-2013 End: 12-01-2013 MMM Mike Mark MD Start: 12-01-2013 End: 12-01-2013 Follow Up Appt 6 months Mike Mark MD Start: 12-01-2013 End: 12-01-2013 MMM Mike Mark MD Start: 07-12-2013 End: 08-04-2013 *Hepatic Function Panel Marisol monet PA-C Work Phone: Start: 07-12-2013 End: 08-04-2013 Lipid 1996 panel - Serum or Plasma Marisol Rodriguez PA-C Work Phone: Start: 07-12-2013 End: 08-04-2013 Hepatic function 2000 panel - Serum or Plasma Marisol Rodriguez PA-C Work Phone: Start: 07-12-2013 End: 08-04-2013 Lipid 1996 panel - Serum or Plasma Marisol Rodriguez PA-C Work Phone: Start: 05-20-2013 End: 05-20-2013 Follow Up Appt 6 months Marisol monet PA-C Work Phone: Start: 05-20-2013 End: 05-20-2013 PFM Marisol Rodriguez PA-C Work Phone: Start: 05-20-2013 End: 05-20-2013 Follow Up Appt 6 months Marisol monet PA-C Work Phone: Start: 05-20-2013 End: 05-20-2013 PFM Marisol Rodriguez PA-C Work Phone: Start: 04-11-2013 End: 05-13-2013 *Hepatic Function Panel Marisol monet PA-C Work Phone: Start: 04-11-2013 End: 05-13-2013 Lipid 1996 panel - Serum or Plasma Marisol Rodriguez PA-C Work Phone: Start: 04-11-2013 End: 05-13-2013 Hepatic function 2000 panel - Serum or Plasma Marisol Rodriguez PA-C Work Phone: Start: 04-11-2013 End: 05-13-2013 Lipid 1996 panel - Serum or Plasma Mraisol Rodriguez PA-C Work Phone: Start: 11-21-2012 End: 11-21-2012 eRx Transmitted during this visit (Medicare only) Marisol Rodriguez PA-C Work Phone: Start: 11-21-2012 End: 01-31-2013 Follow Up Appt 6 months Marisol monet PA-C Work Phone: Start: 11-21-2012 End: 01-31-2013 PFM Marisol Rodriguez PA-C Work Phone: Start: 11-21-2012 End: 01-31-2013 Follow Up Appt 6 months Marisol monet PA-C Work Phone: Start: 11-21-2012 End: 01-31-2013 PFM Marisol Rodriguez PA-C Work Phone: Start: 11-21-2012 End: 11-21-2012 Prescrip transmit via erx sy Marisol Rodriguez PA-C Work Phone: Start: 10-09-2012 End: 10-11-2012 *Hepatic Function Panel Mike Mark MD Start: 10-09-2012 End: 10-11-2012 Lipid 1996 panel - Serum or Plasma Mike Mark MD Start: 10-09-2012 End: 10-11-2012 Hepatic function 2000 panel - Serum or Plasma Mike Mark MD Start: 10-09-2012 End: 10-11-2012 Lipid 1996 panel - Serum or Plasma Mike Mark MD Start: 07-12-2012 End: 07-18-2012 *Hepatic Function Panel Mike Mark MD Start: 07-12-2012 End: 07-18-2012 Lipid 1996 panel - Serum or Plasma Mike Mark MD Start: 07-12-2012 End: 07-18-2012 Hepatic function 2000 panel - Serum or Plasma Mike Mark MD Start: 07-12-2012 End: 07-18-2012 Lipid 1996 panel - Serum or Plasma Mike Mark MD Start: 05-16-2012 End: 05-16-2012 Ecg routine ecg w/least 12 lds w/i&r Mike Mark MD Start: 05-16-2012 End: 05-16-2012 Follow Up Appt 6 months Mike Mark MD Start: 05-16-2012 End: 05-16-2012 Ecg routine ecg w/least 12 lds w/i&r Mike Mark MD Start: 05-16-2012 End: 05-16-2012 Follow Up Appt 6 months Mike Mark MD Start: 01-30-2012 End: 01-30-2012 *Hepatic Function Panel Mike Mark MD Start: 01-30-2012 End: 01-30-2012 Lipid 1996 panel - Serum or Plasma Mike Mark MD Start: 01-30-2012 End: 01-30-2012 Hepatic function 2000 panel - Serum or Plasma Mike Mark MD Start: 01-30-2012 End: 01-30-2012 Lipid 1996 panel - Serum or Plasma Mike Mark MD Start: 10-19-2011 End: 10-30-2011 *Hepatic Function Panel Mike Mark MD Start: 10-19-2011 End: 05-13-2013 Echocardiography Mike Mark MD Start: 10-19-2011 End: 05-13-2013 Follow Up Appt 6 months Mike Mark MD Start: 10-19-2011 End: 10-30-2011 Lipid 1996 panel - Serum or Plasma Mike Mark MD Start: 10-19-2011 End: 05-13-2013 Nuclear stress test -exercise Mike jacobo MD Start: 10-19-2011 End: 05-13-2013 Echocardiography Mike Mark MD Start: 10-19-2011 End: 05-13-2013 Follow Up Appt 6 months Mike Mark MD Start: 10-19-2011 End: 10-30-2011 Hepatic function 2000 panel - Serum or Plasma Mike Mark MD Start: 10-19-2011 End: 10-30-2011 Lipid 1996 panel - Serum or Plasma Mike Mark MD Start: 10-19-2011 End: 05-13-2013 Nuclear stress test -exercise Mike jacobo MD Plan of Treatment Date Care Activity Detail Author Start: 10-24-2017 End: 10-24-2017 Appointment Appointment [facility] Work Phone: Start: 04-25-2017 End: 04-25-2017 Appointment Appointment [facility] Work Phone: Start: 04-25-2017 End: 04-25-2017 Follow Up Appt 6 months Follow Up Appt 6 months [facility] Work Phone: Start: 04-25-2017 End: 04-25-2017 Follow Up Appt Other Follow Up Appt Other [facility] Work Phone: Start: 04-25-2017 End: 04-25-2017 MMM MMM [facility] Work Phone: Start: 10-27-2016 End: 10-27-2016 Follow Up Appt 6 months Follow Up Appt 6 months [facility] Work Phone: Start: 10-27-2016 End: 10-27-2016 PFM PFM [facility] Work Phone: Start: 10-27-2016 End: 10-27-2016 Patient encounter procedure Appointment [facility] Work Phone: Start: 10-27-2016 End: 10-27-2016 Follow Up Appt 6 months Follow Up Appt 6 months [facility] Work Phone: Start: 10-27-2016 End: 10-27-2016 PFM PFM [facility] Work Phone: Start: 10-18-2016 End: 10-18-2016 Patient encounter procedure Appointment [facility] Work Phone: Start: 04-21-2016 End: 04-21-2016 Follow Up Appt 6 months Follow Up Appt 6 months [facility] Work Phone: Start: 04-21-2016 End: 04-21-2016 MMM MMM [facility] Work Phone: Start: 04-21-2016 End: 04-21-2016 Follow Up Appt 6 months Follow Up Appt 6 months [facility] Work Phone: Start: 04-21-2016 End: 04-21-2016 MMM MMM [facility] Work Phone: Start: 09-03-2015 End: 09-03-2015 Follow Up Appt 6 months Follow Up Appt 6 months [facility] Work Phone: Start: 09-03-2015 End: 09-03-2015 PFM PF [facility] Work Phone: Start: 09-03-2015 End: 09-03-2015 Follow Up Appt 6 months Follow Up Appt 6 months [facility] Work Phone: Start: 09-03-2015 End: 09-03-2015 PFM PFM [facility] Work Phone: Start: 02-09-2015 End: 01-15-2015 *Hepatic Function Panel *Hepatic Function Panel [facility] Work Phone: Start: 02-09-2015 End: 01-15-2015 Lipid panel [AGGREGATE] *Lipid Profile CC PCP [facility] Work Phone: Start: 02-09-2015 End: 01-15-2015 Hepatic function 2000 panel - Serum or Plasma *Hepatic Function Panel [facility] Work Phone: Start: 02-09-2015 End: 01-15-2015 Lipid 1996 panel - Serum or Plasma *Lipid Profile CC PCP [facility] Work Phone: Start: 01-25-2015 End: 01-25-2015 Follow Up Appt 6 months Follow Up Appt 6 months [facility] Work Phone: Start: 01-25-2015 End: 01-25-2015 MMM MMM [facility] Work Phone: Start: 01-25-2015 End: 01-25-2015 Follow Up Appt 6 months Follow Up Appt 6 months [facility] Work Phone: Start: 01-25-2015 End: 01-25-2015 MMM MMM [facility] Work Phone: Start: 07-12-2014 End: 08-10-2014 *Hepatic Function Panel *Hepatic Function Panel [facility] Work Phone: Start: 07-12-2014 End: 08-10-2014 Lipid panel [AGGREGATE] *Lipid Profile CC PCP [facility] Work Phone: Start: 07-12-2014 End: 08-10-2014 Hepatic function 2000 panel - Serum or Plasma *Hepatic Function Panel [facility] Work Phone: Start: 07-12-2014 End: 08-10-2014 Lipid 1996 panel - Serum or Plasma *Lipid Profile CC PCP [facility] Work Phone: Start: 05-27-2014 End: 05-27-2014 Ecg routine ecg w/least 12 lds w/i&r EKG (In office) [facility] Work Phone: Start: 05-27-2014 End: 05-27-2014 Follow Up Appt 6 months Follow Up Appt 6 months [facility] Work Phone: Start: 05-27-2014 End: 05-27-2014 PFM PFM [facility] Work Phone: Start: 05-27-2014 End: 05-27-2014 Ecg routine ecg w/least 12 lds w/i&r EKG (In office) [facility] Work Phone: Start: 05-27-2014 End: 05-27-2014 Follow Up Appt 6 months Follow Up Appt 6 months [facility] Work Phone: Start: 05-27-2014 End: 05-27-2014 PFM PFM [facility] Work Phone: Start: 01-09-2014 End: 01-15-2014 *Hepatic Function Panel *Hepatic Function Panel [facility] Work Phone: Start: 01-09-2014 End: 01-15-2014 Lipid panel [AGGREGATE] *Lipid Profile CC PCP [facility] Work Phone: Start: 01-09-2014 End: 01-15-2014 Hepatic function 2000 panel - Serum or Plasma *Hepatic Function Panel [facility] Work Phone: Start: 01-09-2014 End: 01-15-2014 Lipid 1996 panel - Serum or Plasma *Lipid Profile CC PCP [facility] Work Phone: Start: 12-01-2013 End: 12-01-2013 Follow Up Appt 6 months Follow Up Appt 6 months [facility] Work Phone: Start: 12-01-2013 End: 12-01-2013 MMM MMM [facility] Work Phone: Start: 12-01-2013 End: 12-01-2013 Follow Up Appt 6 months Follow Up Appt 6 months [facility] Work Phone: Start: 12-01-2013 End: 12-01-2013 MMM MMM [facility] Work Phone: Start: 07-12-2013 End: 08-04-2013 *Hepatic Function Panel *Hepatic Function Panel [facility] Work Phone: Start: 07-12-2013 End: 08-04-2013 Lipid panel [AGGREGATE] *Lipid Profile CC PCP [facility] Work Phone: Start: 07-12-2013 End: 08-04-2013 Hepatic function 2000 panel - Serum or Plasma *Hepatic Function Panel [facility] Work Phone: Start: 07-12-2013 End: 08-04-2013 Lipid 1996 panel - Serum or Plasma *Lipid Profile CC PCP [facility] Work Phone: Start: 05-20-2013 End: 05-20-2013 Follow Up Appt 6 months Follow Up Appt 6 months [facility] Work Phone: Start: 05-20-2013 End: 05-20-2013 PFM PFM [facility] Work Phone: Start: 05-20-2013 End: 05-20-2013 Follow Up Appt 6 months Follow Up Appt 6 months [facility] Work Phone: Start: 05-20-2013 End: 05-20-2013 PFM PFM [facility] Work Phone: Start: 04-11-2013 End: 05-13-2013 *Hepatic Function Panel *Hepatic Function Panel [facility] Work Phone: Start: 04-11-2013 End: 05-13-2013 Lipid panel [AGGREGATE] *Lipid Profile [facility] Work Phone: Start: 04-11-2013 End: 05-13-2013 Hepatic function 2000 panel - Serum or Plasma *Hepatic Function Panel [facility] Work Phone: Start: 04-11-2013 End: 05-13-2013 Lipid 1996 panel - Serum or Plasma *Lipid Profile [facility] Work Phone: Start: 11-21-2012 End: 01-31-2013 Follow Up Appt 6 months Follow Up Appt 6 months [facility] Work Phone: Start: 11-21-2012 End: 01-31-2013 PFM PFM [facility] Work Phone: Start: 11-21-2012 End: 01-31-2013 Follow Up Appt 6 months Follow Up Appt 6 months [facility] Work Phone: Start: 11-21-2012 End: 01-31-2013 PFM PFM [facility] Work Phone: Start: 10-09-2012 End: 10-11-2012 *Hepatic Function Panel *Hepatic Function Panel [facility] Work Phone: Start: 10-09-2012 End: 10-11-2012 Lipid panel [AGGREGATE] *Lipid Profile [facility] Work Phone: Start: 10-09-2012 End: 10-11-2012 Hepatic function 2000 panel - Serum or Plasma *Hepatic Function Panel [facility] Work Phone: Start: 10-09-2012 End: 10-11-2012 Lipid 1996 panel - Serum or Plasma *Lipid Profile [facility] Work Phone: Start: 07-12-2012 End: 07-18-2012 *Hepatic Function Panel *Hepatic Function Panel [facility] Work Phone: Start: 07-12-2012 End: 07-18-2012 Lipid panel [AGGREGATE] *Lipid Profile [facility] Work Phone: Start: 07-12-2012 End: 07-18-2012 Hepatic function 2000 panel - Serum or Plasma *Hepatic Function Panel [facility] Work Phone: Start: 07-12-2012 End: 07-18-2012 Lipid 1996 panel - Serum or Plasma *Lipid Profile [facility] Work Phone: Start: 05-16-2012 End: 05-16-2012 Ecg routine ecg w/least 12 lds w/i&r EKG (In office) [facility] Work Phone: Start: 05-16-2012 End: 05-16-2012 Follow Up Appt 6 months Follow Up Appt 6 months [facility] Work Phone: Start: 05-16-2012 End: 05-16-2012 Ecg routine ecg w/least 12 lds w/i&r EKG (In office) [facility] Work Phone: Start: 05-16-2012 End: 05-16-2012 Follow Up Appt 6 months Follow Up Appt 6 months [facility] Work Phone: Start: 01-30-2012 End: 01-30-2012 *Hepatic Function Panel *Hepatic Function Panel [facility] Work Phone: Start: 01-30-2012 End: 01-30-2012 Lipid panel [AGGREGATE] *Lipid Profile [facility] Work Phone: Start: 01-30-2012 End: 01-30-2012 Hepatic function 2000 panel - Serum or Plasma *Hepatic Function Panel [facility] Work Phone: Start: 01-30-2012 End: 01-30-2012 Lipid 1996 panel - Serum or Plasma *Lipid Profile [facility] Work Phone: Start: 10-19-2011 End: 10-30-2011 *Hepatic Function Panel *Hepatic Function Panel [facility] Work Phone: Start: 10-19-2011 End: 10-19-2011 Echocardiography Echocardiogram (complete) [facility] Work Phone: Start: 10-19-2011 End: 05-13-2013 Follow Up Appt 6 months Follow Up Appt 6 months [facility] Work Phone: Start: 10-19-2011 End: 10-30-2011 Lipid panel [AGGREGATE] *Lipid Profile [facility] Work Phone: Start: 10-19-2011 End: 10-19-2011 Nuclear stress test -exercise Nuclear stress test -exercise [facility] Work Phone: Start: 10-19-2011 End: 10-19-2011 Echocardiography Echocardiogram (complete) [facility] Work Phone: Start: 10-19-2011 End: 05-13-2013 Follow Up Appt 6 months Follow Up Appt 6 months [facility] Work Phone: Start: 10-19-2011 End: 10-30-2011 Hepatic function 2000 panel - Serum or Plasma *Hepatic Function Panel [facility] Work Phone: Start: 10-19-2011 End: 10-30-2011 Lipid 1996 panel - Serum or Plasma *Lipid Profile [facility] Work Phone: Start: 10-19-2011 End: 10-19-2011 Nuclear stress test -exercise Nuclear stress test -exercise [facility] Work Phone: Patient Education [facility] Work Phone: Fall risk assessment 10-27-2016 Note Date & Type Note Facility Fall risk assessment 10-18-2016 Note Date & Type Note Facility Additional Source Comments FOR RECORDS PERTAINING TO PATIENTS WHO ARE OR HAVE BEEN ENROLLED IN A CHEMICAL DEPENDENCY/SUBSTANCEABUSE PROGRAM, SOME INFORMATION MAY BE OMITTED. This clinical summary was aggregated from multiple sources. Caution should be exercised in using it in the provision of clinical care. This summary normalizes information from multiple sources, and as a consequence, information in this document may materially change the coding, format and clinical context of patient data. In addition, data may be omitted in some cases. CLINICAL DECISIONS SHOULD BE BASED ON THE PRIMARY CLINICAL RECORDS. [facility] [employer] [facility]. provides no warranty or guarantee of the accuracy or completeness of information in this document.
[2023-06-14 18:23] LABS: Hemoglobin A1c 6.7 % (3.8-5.6)
[2023-06-14 18:50] LABS: Anion Gap 6 (5-15); BUN 44 mg/dL (7-18); Calcium,Total 8.2 mg/dL (8.5-10.1); Chloride 114 mmol/L (98-107); Cholesterol 130 mg/dL (200); Creatinine, Serum 2.45 mg/dL (0.70-1.30); EST Glomerular Filtration Rate 27 mL/min (>60); Est Glom Filt Rate - Afr Amer 32 mL/min (>60); Free T3 1.8 pg/mL (2.18-3.98); Glucose 120 mg/dL (74-106); High Density Lipoprotein 30 mg/dL; Potassium 4.9 mmol/L (3.5-5.1); Sodium Level 142 mmol/L (136-145); T4 Free Direct 1.12 ng/dL (0.76-1.46); Thyroid Stim Hormone (TSH) 1.02 uIU/mL (0.358-3.74); Triglycerides 152 mg/dL; Very Low Density Lipoprotein 30 mg/dL (5-40)
== END | disposition home or self-care (01) ==
LOC: MFPLAB 16:01
PROVIDERS: PCP Family Medicine; Visit Provider Family Medicine
DX: E11.9 Type 2 diabetes mellitus without complications (principal); E03.9 Hypothyroidism, unspecified
CPT/HCPCS: 36415; 80048; 80061; 83036; 84439; 84443; 84481

== ENCOUNTER → 2023-09-14 | Outpatient (CLI) | payer MEDICARE, SELFPAY | END | disposition home or self-care (01) | LOC: LABSPEC 15:54 | PROVIDERS: PCP Family Medicine; Referring Provider Physician Assistant Surgical; Visit Provider Physician Assistant Surgical | DX: N39.0 Urinary tract infection, site not specified (principal) | CPT/HCPCS: 87077; 87086; 87088; 87186 ==

== ENCOUNTER 2023-09-15 14:40 | Inpatient (IN) | payer MEDICARE, SELFPAY ==
[2023-09-15] VITALS (9 sets, daily range): BP systolic 113–173; BP diastolic 62–86; PULSE 72–100; RESP 13–23; TEMP 35.7–36.3; O2SAT 96–100; BMI 25.2; BMI 22.7; BMI 25.0
--- NOTE | 2023-09-15 14:44 | EKG12_ITS ---
Test Reason : STROKE Blood Pressure : / mmHG Vent. Rate : 087 BPM Atrial Rate : 087 BPM P-R Int : 202 ms QRS Dur : 070 ms QT Int : 388 ms P-R-T Axes : 054 059 045 degrees QTc Int : 466 ms Normal sinus rhythm with sinus arrhythmia Normal ECG Confirmed by Sean Torres ([id number]), slot editor IAN MACARIO ([id number]) on 09/17/2023 10:50:57 AM Referred By: SALVADOR Confirmed By:Sean Torres
--- NOTE | 2023-09-15 14:44 | CT_ITS ---
INDICATION: Neuro deficit, acute, stroke suspected EXAMINATION: CT BRAIN - CT Head Stroke Protocol W/O Contrast Injection TECHNIQUE: Multiple axial images were obtained of the head without intravenous contrast. A radiation dose optimization technique was used for this scan. IV Contrast dosage and agent: None. RADIATION DOSAGE (If Supplied By Facility): CTDIvol = ( 44.99 ) mGy, DLP = ( 745.49 ) mGycm COMPARISON: MRI of the brain of 03/07/[address] brain of 08/16/2018 FINDINGS: BRAIN PARENCHYMA: No intra- or extra-axial hemorrhage. Relative loss of the cortical sulci in the right parietal region compared to left side unchanged since the prior exam. 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 Chronic periventricular deep white matter changes likely due to microvascular disease No intracranial mass or mass effect. 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 Atherosclerotic calcifications of the cavernous internal carotid artery. CSF SPACES: Appropriate for age. No hydrocephalus. Basal cisterns are patent. CALVARIUM, SKULL BASE, PARANASAL SINUSES AND MASTOID AIR CELLS: Clear. No discrete lytic or blastic abnormalities. ORBITS: Both globes, extraocular muscles, optic nerves and retrobulbar fat appear unremarkable. CT/STROKE Brain/Head without Cont IMPRESSION: 1. No acute intracranial process. MRI of the brain is suggested. 2. 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 3. Chronic involutional changes of the brain. 4. No evidence of acute bleed. 5. If symptoms persist, MRI of the brain is recommended. N.B. : The above Results were Read Back by Darren Gonzalez MD to Panchiot Huff DO, and understanding confirmed on 09/15/2023 15:10:21 (ET). Electronically Signed: Darren Gonzalez MD at 15:10 EDT ,
--- NOTE | 2023-09-15 14:44 | CT_ITS ---
INDICATION: Neuro deficit, acute, stroke suspected EXAMINATION: CT BRAIN WITHOUT CONTRAST, CTA HEAD, AND CTA NECK TECHNIQUE: Noncontrast axial images were obtained of the brain. Subsequently, routine carotid CT angiogram protocol was performed without and with IV contrast. In addition, images were obtained of the [place] of [place]. NASCET criteria using the distal ICAs for comparison were used for evaluation of stenoses. 3D reconstructions were reviewed. A radiation dose optimization technique was used for this scan. IV Contrast dosage and agent: 100 cc of Isovue-370 COMPARISON: No relevant prior comparison study available FINDINGS: --CTA NECK: AORTIC ARCH AND BRANCHES: Normal anatomy, patent. RIGHT CCA: Calcifications in the right bulb region without significant stenosis. RIGHT ICA: No occlusion, significant stenosis or dissection. LEFT CCA: Calcifications in the left bulb region with less than 50% stenosis LEFT ICA: No occlusion, significant stenosis or dissection. RIGHT VERTEBRAL ARTERY: No occlusion, significant stenosis or dissection. LEFT VERTEBRAL ARTERY: No occlusion, significant stenosis or dissection. NECK SOFT TISSUES: Unremarkable. --CTA HEAD: --Anterior circulation: ICAs: Mild atherosclerotic calcifications of the cavernous internal carotid arteries worse on the left side with mild stenosis on the left side. ACAs: No significant stenosis at the visualized segments. ACOM: Present. MCAs: Mild irregularity of the left M1 segment without significant stenosis. Unremarkable right M1 and bilateral A2 segments. --Posterior circulation: PCOMs: Visualized bilaterally faint on the right side ethics instructor: No significant stenosis at the visualized segments. BASILAR ARTERY: No significant stenosis. VERTEBRAL ARTERIES: Mild calcifications of the right vertebral artery without significant stenosis. No evidence of intracranial aneurysm or vascular malformation. CT/STROKE CTA Head AND Neck W/Con IMPRESSION: 1. Mild irregularity of the left M1 segment without significant stenosis. 2. Atherosclerotic calcifications of the cavernous internal carotid arteries with mild stenosis on the left side. 3. Otherwise no intracranial great vessel stenosis. 4. Calcifications in the bulb regions bilaterally worse on the left side with less than 50% stenosis. 5. Patent bilateral vertebral arteries. N.B. : The above Results were Read Back by Darren Gonzalez MD to Panchito Huff DO, and understanding confirmed on 09/15/2023 15:16:32 (ET). Electronically Signed: Darrne Gonzalez MD at 15:21 EDT ,
--- NOTE | 2023-09-15 14:53 | EDS_ITS ---
HPI History of Present Illness Chief Complaint: Stroke Alert Informant: patient, spouse/S.O. and EMS Onset/Context/Timing Onset: Today Context: Sudden Onset Timing: Continuous Quality and Location: Positive for - (Confusion) Onset: Today at approximately 1:30 PM Worsened by: Nothing Relieved by: Nothing Narrative Narrative: Patient presents with acute confusion that began today. EMS reports that the patient's noted a change in his mental status around 1:30 PM today. states the patient had been alert and oriented x 3 prior to that. Patient is confused. Patient is a poor informant. Patient denies any chest pain or shortness of breath. Patient denies any nausea or vomiting. Patient denies any paresthesias. Patient denies any weakness. Patient is currently on Cipro for urinary tract infection. states he has taken 3 doses of this. EMS checked a BGT and was normal at 176. [facility] Medical History Ambulates with cane Chronic kidney disease Chronic renal insufficiency Coronary atherosclerosis of [place] coronary artery Cricopharyngeal dysphagia Dementia Essential hypertension Gastric reflux Glucosuria Gout History of diabetes mellitus History of hypertension Hyperlipidemia Hypertension Hypothyroidism Polymyalgia rheumatica PONV (postoperative nausea and vomiting) Presence of stent in coronary artery (~10/31/10) Pure hypercholesterolemia Seizures Sleep apnea Thyroid disease Type II diabetes mellitus Walker as ambulation aid Wears glasses Home Medications nitroglycerin 0.4 mg sublingual tablet 0.4 mg sublingual Q5M PRN Chest Pain #25 tabs 11/06/18 [Rx Last Taken Unknown] acetaminophen 500 mg tablet 500 mg PO Q6H PRN Pain 04/12/22 [History Last Taken 06/14/22 19:30] levothyroxine 100 mcg tablet 100 mcg PO DAILY THYROID 04/12/22 [History Last Taken 06/14/22] metoprolol succinate 50 mg tablet,extended release 24 hr See Rx Instructions .Route .COMPLEX #90 TABLETS 10/30/22 [Rx Last Taken Unknown] insulin glargine-yfgn 100 unit/mL (3 mL) subcutaneous pen 1 unit subcut QHS 03/04/23 [History Last Taken Unknown] insulin lispro 100 unit/mL subcutaneous pen (Humalog KwikPen (U-100) Insulin) See Rx Instructions subcut TIDAC 03/04/23 [History Last Taken Unknown] aspirin 81 mg chewable tablet 81 mg PO BREAKFAST #0 tabs 03/08/23 [Rx Last Taken Unknown] allopurinol 300 mg tablet 300 mg PO QDAY 09/14/23 [History Last Taken Unknown] ciprofloxacin HCl 500 mg tablet 500 mg PO BID 7 days #14 tabs 09/14/23 [Rx Last Taken Unknown] indomethacin 25 mg capsule 25 mg PO TID 09/14/23 [History Last Taken Unknown] donepezil 10 mg tablet 10 mg PO 09/15/23 [History Last Taken Unknown] Allergy/AdvReac Type Severity Reaction Status Date / Time clopidogrel bisulfate Allergy Rash Verified 09/14/23 11:34 [From Plavix] cyclobenzaprine Allergy Rash Verified 09/14/23 11:34 [Cyclobenzaprine] fluoxetine HCl [From Prozac] Allergy Rash Verified 09/14/23 11:34 Family History Father Diabetes Mother Diabetes Surgical History H/O percutaneous transluminal coronary angioplasty History of back surgery History of cholecystectomy History of esophageal dilatation (~07/2021) Presence of coronary angioplasty implant and graft (~10/31/10) toenail removed Social History household members: spouse housing: house other: Typically ambulates with a cane however most recently with a walker seconda Smoking Status: Never smoker alcohol intake: never substance use type: does not use caffeine: Yes Type: tea Number of servings: 1 what type of physical activity do you participate in: none ROS ROS ED Constitutional Constitutional ED: Denies chills or fever(s) Eyes Eyes: Denies blurry vision or change in vision ENT ENT ED: Denies rhinorrhea or sore throat Cardiovascular Cardiovascular: Denies chest pain or palpitations Respiratory/Chest Respiratory/Chest: Denies cough or dyspnea Gastrointestinal Gastrointestinal: Denies nausea or vomiting Genitourinary Genitourinary ED: Denies dysuria or hematuria Musculoskeletal Musculoskeletal: Denies back pain or neck pain Integumentary Denies abscess or rash Neurologic Neurologic: Denies headache(s) or weakness Allergic/Immunologic Allergic/Immunologic ED: Denies mouth swelling or urticaria EXAM Physical Exam Const Vital Signs: 09/15/23 14:42 09/15/23 14:40 09/15/23 14:55 Temperature 96.2 F L Temperature Source Temporal Pulse Rate 72 100 Respiratory Rate 16 23 H Blood Pressure 173/85 H 131/74 H Blood Pressure Mean 114 93 Pulse Ox 98 99 Oxygen Delivery Method Room Air Room Air 09/15/23 14:57 09/15/23 15:40 09/15/23 16:00 Temperature Temperature Source Pulse Rate 89 82 79 Respiratory Rate 21 H 18 13 Blood Pressure 141/62 H 137/68 H 113/67 Blood Pressure Mean 88 91 82 Pulse Ox 96 100 100 Oxygen Delivery Method Room Air Room Air Room Air Positive well nourished and well developed General Appearance ED: well developed and NAD HEENT Reports moist mucous membranes Neck supple and no JVD Resp normal respiratory effort and clear to auscultation bilaterally Cardio Rate: regular rate Rhythm: regular rhythm GI soft to palpation, non-tender and non-distended Neuro CN's II-XII intact bilaterally and no sensory deficits noted [place] Coma Scale: document GCS findings Spontaneous Obeys Commands Confused 14 Sensorium / Orientation: alert, oriented to person, oriented to place, orientation impaired and confused Speech: speech normal Motor Exam: strength 5/5 throughout Psych mental status grossly normal NIHSS NIHSS Initial: 1a Level of Consciousness: 1 1b LOC Questions (Score 2 if aphasic/stupor): 2 1c LOC Commands (Only score 1st attempt): 1 2 Best Gaze (If aphasic, use reflexive mvmts.): 0 3 Visual: 0 4 Facial Palsy: 0 5 Motor Arm Right (UN = amputation/fusion): 0 5 Motor Arm Left: 0 6 Motor Leg Right: 0 6 Motor Leg Left: 0 8 Sensory (Aphasia/stupor=0 or 1, coma=2): 0 9 Best Language: 0 10 Dysarthria (mute, coma=2, intubated=UN): 0 11 Extinction and Inattention (only scored if +): 0 Total Score: 4 MDM MDM MDM Narrative Medical decision making narrative: Prehospital stroke alert was called. Differential diagnosis includes stroke, intracranial bleeding, infection, sepsis, cardiac dysrhythmia, cardiac ischemia, and electrolyte abnormality. CT scan of the brain will be obtained to assess for intracranial bleeding. CTA of the head and neck will be obtained to assess for large vessel occlusion and carotid stenosis. Chest x-ray will be obtained to assess for pneumonia. EKG will be obtained to assess for cardiac dysrhythmia and cardiac ischemia. CBC will be obtained to assess for leukocytosis and ane berny. Basic metabolic profile will be obtained to assess for electrolyte abnormality and renal function. PT with INR and PTT will be obtained to assess for coagulopathy. Serum lactate will be obtained to assess for sepsis. High- sensitivity troponin will be obtained to assess for cardiac ischemia. Blood cultures will be obtained to assess for sepsis. Urine culture will be obtained to assess for urinary tract infection. COVID, influenza, and RSV PCR will be obtained to assess for viral infection. Lab Data Attestation: I reviewed the patient's lab results. Lab results narrative: CBC was reviewed. There is a mild anemia with a hemoglobin of 11.6 and hematocrit of 35.8. Platelets were slightly low at 114. Basic metabolic profile was reviewed. BUN was 37 and creatinine was 2.92. This is slightly increased from previous results. Glucose was 167. Serum lactate was reviewed and was normal at 1.4. High-sensitivity troponin was reviewed and was normal at 6. PT with INR and PTT were reviewed. Pro time was 15.2. INR is 1.2. PTT was normal at 34.2. Urinalysis was reviewed. There is no evidence of urinary tract infection or hematuria. Labs: Laboratory Results - last 24 hr 09/15/23 09/15/23 15:05 15:25 WBC 6.6 RBC 3.77 L Hgb 11.6 L Hct 35.8 L MCV 95.0 H MCH 30.8 MCHC 32.4 RDW Std Deviation 49.4 H RDW Coeff of Sea 14.4 Plt Count 114 L MPV 12.4 H Immature Gran % (Auto) 0.900 Neut % (Auto) 68.1 Lymph % (Auto) 14.2 L [place] % (Auto) 15.8 H Eos % (Auto) 0.8 Baso % (Auto) 0.2 Absolute Neuts (auto) 4.5 Absolute Lymphs (auto) 0.94 Nucleated RBC % 0 PT 15.2 H INR 1.2 APTT 34.2 Sodium 138 Potassium 4.4 Chloride 108 H Carbon Dioxide 25.0 Anion Gap 5 BUN 37 H Creatinine 2.92 H Estim Creat Clear Calc 15.99 Est GFR (MDRD) Af Amer 26 L Est GFR (MDRD) Non-Af 22 L BUN/Creatinine Ratio 12.7 Glucose 167 H Lactic Acid 1.4 Calcium 8.0 L Troponin I High Sens 6 Urine Color Yellow Urine Clarity Clear Urine pH 5.0 Ur Specific [place] 1.020 Urine Protein 500 H Urine Glucose (UA) Normal Urine Ketones Negative Urine Occult Blood 10 H Urine Nitrite Negative Urine Bilirubin Negative Urine Urobilinogen Normal Ur Leukocyte Esterase Negative Urine RBC 0 SEEN Urine WBC 0 SEEN Ur Squamous Epith Cells 0 SEEN Urine Bacteria 0 SEEN Urine Mucus 0 SEEN Radiography Chest X-Ray - ED: 1 View, Read by ED Physician, Read by Radiologist and No Acute Disease Diagnostic Testing: Clinical Impression(s) from Imaging Studies Brain CT 09/15/23 14:44 IMPRESSION: 1. No acute intracranial process. MRI of the brain is suggested. 2. 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 3. Chronic involutional changes of the brain. 4. No evidence of acute bleed. 5. If symptoms persist, MRI of the brain is recommended. N.B. : The above Results were Read Back by Darren Gonzalez MD to Panchito Huff DO, and understanding confirmed on 09/15/2023 15:10:21 (ET). Electronically Signed: Darren Gonzalez MD at 15:10 EDT , ADDENDUM: 09/15/23 1517 IMPRESSION: 1. No acute intracranial process. MRI of the brain is suggested. 2. 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 3. Chronic involutional changes of the brain. 4. No evidence of acute bleed. 5. If symptoms persist, MRI of the brain is recommended. N.B. : The above Results were Read Back by Darren Gonzalez MD to Panchito Huff DO, and understanding confirmed on 09/15/2023 15:10:21 (ET). Electronically Signed: Darren Gonzalez MD at 15:10 EDT , Head/Neck CTA 09/15/23 14:44 IMPRESSION: 1. Mild irregularity of the left M1 segment without significant stenosis. 2. Atherosclerotic calcifications of the cavernous internal carotid arteries with mild stenosis on the left side. 3. Otherwise no intracranial great vessel stenosis. 4. Calcifications in the bulb regions bilaterally worse on the left side with less than 50% stenosis. 5. Patent bilateral vertebral arteries. N.B. : The above Results were Read Back by Darren Gonzalez MD to Panchito Huff DO, and understanding confirmed on 09/15/2023 15:16:32 (ET). Electronically Signed: Darren Gonzalez MD at 15:21 EDT , ADDENDUM: 09/15/23 1528 IMPRESSION: 1. Mild irregularity of the left M1 segment without significant stenosis. 2. Atherosclerotic calcifications of the cavernous internal carotid arteries with mild stenosis on the left side. 3. Otherwise no intracranial great vessel stenosis. 4. Calcifications in the bulb regions bilaterally worse on the left side with less than 50% stenosis. 5. Patent bilateral vertebral arteries. N.B. : The above Results were Read Back by Darren Gonzalez MD to Panchito Huff , , and understanding confirmed on 09/15/2023 15:16:32 (ET). Electronically Signed: Darren Gonzalez MD at 15:21 EDT , Chest X-Ray 09/15/23 15:38 IMPRESSION: There are no acute findings. Electronically Signed: Jf Scott MD at 16:11 EDT , CT scan of the brain was obtained. There is no acute intracranial abnormality. There are old infarct in the left frontal and posterior parietal and temporal regions. There are chronic changes noted. This was interpreted by the radiologist and was also independently reviewed by myself. CTA of the head and neck was obtained. There is some mild irregularity of the left M1 segment without significant stenosis. There is calcifications in the cavernous internal carotid arteries with mild stenosis on the left. There is no evidence of large vessel occlusion. There are calcifications in the carotid bulbs bilaterally, worse on the left with less than 50% stenosis. This was interpreted by the radiologist and was also independently reviewed by myself. Portable 1 view chest x-ray was obtained. On my independent interpretation, lung melendez are clear. There is normal cardiac silhouette. Bony thorax is normal. There is no acute process noted. Radiologist also interpreted the x- ray and agrees. EKG Initial EKG: Attestation: I personally reviewed and interpreted this EKG as follows: Interpretation: Sinus Rhythm (87) and No Acute Injury Pattern Comments: EKG was obtained. On my independent interpretation, it showed a normal sinus rhythm with a rate of 87. MD interval, QRS interval, and QTc intervals were all normal. [place] was normal. There are no acute ST or T wave changes. Prior EKG tracings: available for review Prior: Unchanged (03/06/2023) Management Discussion w/another healthcare provider: Hospitalist, Mig Welder and Radiologist Treatment and Re-Evaluation Narrative: Patient was evaluated by stroke neurology. They do not feel this is from an acute stroke. It could be an infectious or metabolic. They recommended keeping the patient here for further evaluation of infectious and metabolic etiologies. Patient was given IV fluids. Patient and spouse were advised of his findings. On reevaluation, patient began complaining of diffuse abdominal pain. Because of this, a CT scan of the abdomen pelvis was obtained. Case was discussed with the hospitalist. He will admit the patient to his service. Patient and family understood and were agreeable with the plan. All questions were answered. Stroke Documentation Questions Stroke Team Activated: Yes Reviewed Inclusion/Exclusion criteria: Yes Was Patient considered for Endovascular Intervention?: No-CTA negative, determined not to be an endovascular candidate IV Thrombolytic Administered: No Discharge Plan Triage Chief Complaint: Stroke Alert ED Provider: Panchito Huff Dx/Rx/DC Orders Clinical Impression: Acute confusion, Essential hypertension, Chronic kidney disease Prescriptions: No Action nitroglycerin 0.4 mg tablet, sublingual 0.4 mg SUBLINGUAL Q5M PRN (Reason: Chest Pain) Qty: 25 3RF indomethacin 25 mg capsule 25 mg PO TID allopurinol 300 mg tablet 300 mg PO QDAY ciprofloxacin HCl 500 mg tablet 500 mg PO BID 7 Days Qty: 14 0RF acetaminophen 500 mg Tablet 500 mg PO Q6H PRN (Reason: Pain) levothyroxine 100 mcg tablet 100 mcg PO DAILY Patient Comments: TAKE 1 TABLET BY MOUTH ONCE DAILY insulin lispro [Humalog KwikPen Insulin] 100 unit/mL Insulin Pen See Rx Instructions subcut TIDAC Protocol: 3. Sliding Scale Insulin Med Dosing Condition: 150-189 mg/dl = 1 unit Condition: 190-229 mg/dl = 2 units Condition: 230-269 mg/dl = 3 units Condition: 270-309 mg/dl = 4 units Condition: 310-349 mg/dl = 5 units Condition: 350-399 mg/dl = 6 units Condition: 400-449 mg/dl = 7 units Condition: Greater than 449 call physician Protocol Text: - Use for Total Daily Dose of Insulin 37-55 units - Obsese, infected, or steroid patients MEDIUM DOSING ALGORITHIM Patient Comments: 5 units in the am, 8 u for lunch, 5u dinner Rx Instructions: subcutaneously three times daily before meals; insulin glargine-yfgn 100 unit/mL (3 mL) Insulin Pen 1 unit subcut QHS Patient Comments: gives 15-25 units depends on what his sugar is aspirin 81 mg Tablet,Chewable 81 mg PO BREAKFAST Qty: 0 0RF donepezil 10 mg tablet 10 mg PO metoprolol succinate 50 mg tablet extended release 24 hr See Rx Instructions .ROUTE .COMPLEX Qty: 90 3RF Dose Instruction: TAKE 1 TABLET BY MOUTH ONCE DAILY FOR THE HEART. Rx Instructions: TAKE 1 TABLET BY MOUTH ONCE DAILY FOR THE HEART. Primary Care Provider: Mike Salas Referrals: Mike Salas MD [Primary Care Provider] - Disposition Disposition: Acute Care [facility]
[2023-09-15 15:20] LABS: Absolute Lymphocyte Count 0.94 X10^3/uL (0.83-4.51); Absolute Neutrophil Count 4.5 X10^3/uL (2.0-7.7); Basophil# 0.01 X10^3/uL; Basophil% 0.2 % (0-1); Eosinophil# 0.05 X10^3/uL; Eosinophils% 0.8 % (0-5); Hematocrit 35.8 % (40-54); Hemoglobin 11.6 g/dL (13.0-16.5); Lymphocyte # 0.94 X10^3/ul (0.83-4.51); Lymphocyte % 14.2 % (19-41); Mean Corp Hgb Conc 32.4 g/dL (32-36); Mean Corpuscular Hgb 30.8 pg (27.0-32.0); Mean Platelet Vol. 12.4 fl (6.2-12.0); Monocyte# 1.05 X10^3/uL; Monocyte% 15.8 % (0-10); NRBC Flagged by Analyzer 0 % (0-5); Neutrophil # 4.53 X10^3/uL (2.7-7.7); Neutrophil % 68.1 % (47-70); Platelet Count 114 K/mm3 (150-450); RBC Distribution Width CV 14.4 % (11.6-14.6); RBC Distribution Width SD 49.4 fl (35.1-43.9); Red Blood Count 3.77 M/mm3 (4.6-6.2); White Blood Count 6.6 K/mm3 (4.4-11.0)
[2023-09-15 15:28] LABS: International Normalized Ratio 1.2; Prothrombin Time (Protime)PT. 15.2 SECONDS (11.7-14.9)
[2023-09-15 15:29] LABS: Partial Thromboplast Time 34.2 Seconds (24.1-36.2)
[2023-09-15 15:31] LABS: Bacteria 0 SEEN /hpf (None Seen); Mucous, Urine 0 SEEN /hpf (<or=2+); Red Blood Cells-Urine 0 SEEN /hpf (0-5); Squamous Epithelial Cells - UA 0 SEEN /hpf (0-5); White Blood Cells 0 SEEN /hpf (0-5)
[2023-09-15 15:37] LABS: Color, Urine Yellow (Yellow); Glucose, Dipstick Normal (Normal); Ketone-Dipstick Negative (Negative); Leukocyte Esterase-Dipstick Negative /ul (Negative); Nitrite-Dipstick Negative (Negative); Occult Blood-Urine 10 /ul (Negative); Protein-Dipstick 500 mg/dl (Negative); Urine Bilirubin Dipstick Negative (Negative); Urine Clarity Clear (Clear); Urine Urobilinogen Normal (Normal)
[2023-09-15 15:38] LABS: Anion Gap 5 (5-15); BUN 37 mg/dL (7-18); BUN/Creat Ratio 12.7 RATIO (10-20); Chloride 108 mmol/L (98-107); Creatinine, Serum 2.92 mg/dL (0.70-1.30); EST Glomerular Filtration Rate 22 mL/min (>60); Est Glom Filt Rate - Afr Amer 26 mL/min (>60); Estimated Creatinine Clearance 15.99 ml/min; Glucose 167 mg/dL (74-106); Potassium 4.4 mmol/L (3.5-5.1); Sodium Level 138 mmol/L (136-145); Troponin-I HS 6 pg/mL (3.0-78.0)
--- NOTE | 2023-09-15 15:38 | RAD_ITS ---
STUDY: XR Chest 1 View 09/15/2023 3:41 PM REASON FOR EXAM: Male, 88 years old. Neuro deficit, acute, stroke suspected COMPARISON: None TECHNIQUE: XR Chest 1 View FINDINGS: There is no demonstrated pleural abnormality. Normal heart size. Normal mediastinum. Normal félix. Prominent appearing increased interstitial lung markings. Normal visualized pulmonary arteries. There is atherosclerotic calcification of the aortic arch with tortuosity. There are diffuse degenerative changes of the visualized thoracic spine. There is degenerative osteoarthritis of the bilateral shoulders. There are no acute findings of the upper abdomen. RAD/Chest 1 View IMPRESSION: There are no acute findings. Electronically Signed: Jf Scott MD at 16:11 EDT ,
[2023-09-15 15:52] LABS: Lactic Acid 1.4 mmol/L (0.4-1.9)
--- NOTE | 2023-09-15 16:13 | CT_ITS ---
STUDY: CT Abdomen And Pelvis W/O Contrast Injection 09/15/2023 5:07 PM REASON FOR EXAM: Male, 88 years old. Abdominal pain Abdominal pain Individualized dose optimization techniques were used for this CT. COMPARISON: None. TECHNIQUE: CT Abdomen And Pelvis W/O Contrast Injection FINDINGS: There are atherosclerotic calcifications of visualized coronary arteries. The visualized portions of the heart are within normal limits. Normal liver. There are surgical clips in the gallbladder fossa consistent with a prior cholecystectomy. Normal spleen. There is diffuse atrophy of the pancreas. Normal bilateral adrenal glands. There are hypodensities in the right kidney. These are consistent for cysts. No follow up required. There are hypodensities in the left kidney. These are consistent for cysts. No follow up required. Normal visualized stomach. Normal small intestine. There are multiple colonic diverticula consistent with diverticulosis. The appendix is visualized and appears normal. There are calcifications of the abdominal aorta. This is consistent for atherosclerotic disease. There is NO abdominal aortic aneurysm. Vascular workup can be obtained based on clinical correlation. Normal inferior vena cava. Subcentimeter mesenteric lymph nodes. Urinary bladder wall has wall thickening. This can be related to a partially contractile state. However, a cystitis is not excluded. Urinalysis should be performed in an effort to exclude cystitis. Urinary bladder diverticula Normal abdominal wall. There are diffuse degenerative changes of the visualized lumbar spine. Degenerative findings of the hips. Acquired degenerative spinal stenosis. CT/Abdomen/Pelvis without Cont IMPRESSION: (NOT LISTED IN ORDER OF SIGNIFICANCE) Urinary bladder wall has wall thickening. This can be related to a partially contractile state. However, a cystitis is not excluded. Urinalysis should be performed in an effort to exclude cystitis. Urinary bladder diverticula Other findings as above. Electronically Signed: Jf Scott MD at 17:10 EDT ,
[2023-09-15] MEDS: 0.9% Normal Saline (500mL Bag) 500 ML 1000 ML IV (16:15)
--- NOTE | 2023-09-15 16:30 | PCM.HP.STD ---
HPI - General General Date of Admission: 09/15/23 Date of Service: 09/15/23 Chief Complaint: Altered mental status HPI Narrative ROSHNI GARCIA, is a 88 M with past medical history single for hypothyroidism, essential hypertension who was brought to the emergency department by the family on account of altered mental status. Patient had apparently been diagnosed with acute cystitis at an urgent care center the day prior to his admission. Patient was prescribed ciprofloxacin and apparently had 2 doses. Per patient's who contributed to majority of the history patient was found to be confused with difficulty finding words on the afternoon of his admission. Patient was subsequently brought to the emergency department initial head CT obtained came back unremarkable patient was however found to have worsening of his baseline kidney function. Patient was evaluated by teleneurology was felt his symptoms were probably related to metabolic encephalopathy from his impaired kidney function and possibly UTI. Admitted to monitored bed for further management [facility] Medical History Ambulates with cane Chronic kidney disease Chronic renal insufficiency Coronary atherosclerosis of [place] coronary artery Cricopharyngeal dysphagia Dementia Essential hypertension Gastric reflux Glucosuria Gout History of diabetes mellitus History of hypertension Hyperlipidemia Hypertension Hypothyroidism Polymyalgia rheumatica PONV (postoperative nausea and vomiting) Presence of stent in coronary artery (~10/31/10) Pure hypercholesterolemia Seizures Sleep apnea Thyroid disease Type II diabetes mellitus Walker as ambulation aid Wears glasses Home Medications nitroglycerin 0.4 mg sublingual tablet 0.4 mg sublingual Q5M PRN Chest Pain #25 tabs 11/06/18 [Rx Last Taken Unknown] acetaminophen 500 mg tablet 500 mg PO Q6H PRN Pain 04/12/22 [History Last Taken 06/14/22 19:30] levothyroxine 100 mcg tablet 100 mcg PO DAILY THYROID 04/12/22 [History Last Taken 06/14/22] metoprolol succinate 50 mg tablet,extended release 24 hr See Rx Instructions .Route .COMPLEX #90 TABLETS 10/30/22 [Rx Last Taken Unknown] insulin glargine-yfgn 100 unit/mL (3 mL) subcutaneous pen 1 unit subcut QHS 03/04/23 [History Last Taken Unknown] insulin lispro 100 unit/mL subcutaneous pen (Humalog KwikPen (U-100) Insulin) See Rx Instructions subcut TIDAC 03/04/23 [History Last Taken Unknown] aspirin 81 mg chewable tablet 81 mg PO BREAKFAST #0 tabs 03/08/23 [Rx Last Taken Unknown] allopurinol 300 mg tablet 300 mg PO QDAY 09/14/23 [History Last Taken Unknown] ciprofloxacin HCl 500 mg tablet 500 mg PO BID 7 days #14 tabs 09/14/23 [Rx Last Taken Unknown] indomethacin 25 mg capsule 25 mg PO TID 09/14/23 [History Last Taken Unknown] donepezil 10 mg tablet 10 mg PO 09/15/23 [History Last Taken Unknown] Allergy/AdvReac Type Severity Reaction Status Date / Time clopidogrel bisulfate Allergy Rash Verified 09/14/23 11:34 [From Plavix] cyclobenzaprine Allergy Rash Verified 09/14/23 11:34 [Cyclobenzaprine] fluoxetine HCl [From Prozac] Allergy Rash Verified 09/14/23 11:34 Family History Father Diabetes Mother Diabetes Surgical History H/O percutaneous transluminal coronary angioplasty History of back surgery History of cholecystectomy History of esophageal dilatation (~07/2021) Presence of coronary angioplasty implant and graft (~10/31/10) toenail removed Social History household members: spouse housing: house other: Typically ambulates with a cane however most recently with a walker seconda Smoking Status: Never smoker alcohol intake: never substance use type: does not use caffeine: Yes Type: tea Number of servings: 1 what type of physical activity do you participate in: none ROS ROS Narrative GENERAL: denies fever, chills, night sweats, weight loss, anorexia HEENT: denies headache, sinus congestion, or drainage, dysphagia RESPIRATORY: denies cough, sputum production, shortness of breath, dyspnea on exertion CARDIAC: denies chest pain, palpitations, orthopnea, PND GASTROINTESTINAL: denies abdominal pain, nausea, vomiting, melena, GENITOURINARY: denies dysuria, urgency, frequency, heamaturia EXTREMITY: denies swelling MUSCULOSKELETAL: denies current joint pain or tenderness NEUROLOGIC: denies focal numbness, weakness, tingling HEMATOLOGIC: denies easy bruising and/or hemorrhage INTEGUMENT: denies rashes PSYCHIATRIC: denies suicidal or homicidal ideation Vital Signs Vital Signs Vital Signs: 09/15/23 14:42 09/15/23 14:40 09/15/23 14:55 Temperature 96.2 F L Temperature Source Temporal Pulse Rate 72 100 Respiratory Rate 16 23 H Blood Pressure 173/85 H 131/74 H Blood Pressure Mean 114 93 Pulse Ox 98 99 Oxygen Delivery Method Room Air Room Air 09/15/23 14:57 09/15/23 15:40 09/15/23 16:00 Temperature Temperature Source Pulse Rate 89 82 79 Respiratory Rate 21 H 18 13 Blood Pressure 141/62 H 137/68 H 113/67 Blood Pressure Mean 88 91 82 Pulse Ox 96 100 100 Oxygen Delivery Method Room Air Room Air Room Air Weight Weight: 65.9 kg Body Mass Index (BMI) 22.7 Physical Exam Narrative GENERAL: cooperative HEENT: Atraumatic; normocephalic EYES; Anicteric, Normal Conjunctiva NECK; supple, normal thyroid, RESPIRATORY: Diminished to auscultation CARDIOVASCULAR: Regular S1 S2, GI: soft, normoactive bowel sounds, : No Renal angle tenderness; EXTREMITIES: No edema, no clubbing, MUSCULOSKELETAL: no muscle wasting NEURO: Awake; no lateralizing signs. SKIN: No Rash PSYCH; Flat affect Results Lab / Micro Data 09/15/23 15:05 09/15/23 15:05 Labs: Laboratory Results - last 24 hr 09/15/23 15:05: WBC 6.6, RBC 3.77 L, Hgb 11.6 L, Hct 35.8 L, MCV 95.0 H, MCH 30.8, MCHC 32.4, RDW Std Deviation 49.4 H, RDW Coeff of Sea 14.4, Plt Count 114 L, MPV 12.4 H, Immature Gran % (Auto) 0.900, Neut % (Auto) 68.1, Lymph % (Auto) 14.2 L, [place] % (Auto) 15.8 H, Eos % (Auto) 0.8, Baso % (Auto) 0.2, Absolute Neuts (auto) 4.5, Absolute Lymphs (auto) 0.94, Nucleated RBC % 0, PT 15.2 H, INR 1.2, APTT 34.2, Sodium 138, Potassium 4.4, Chloride 108 H, Carbon Dioxide 25.0, Anion Gap 5, BUN 37 H, Creatinine 2.92 H, Estim Creat Clear Calc 15.99, Est GFR (MDRD) Af Amer 26 L, Est GFR (MDRD) Non-Af 22 L, BUN/Creatinine Ratio 12.7, Glucose 167 H, Lactic Acid 1.4, Calcium 8.0 L, Troponin I High Sens 6 09/15/23 15:25: Urine Color Yellow, Urine Clarity Clear, Urine pH 5.0, Ur Specific [place] 1.020, Urine Protein 500 H, Urine Glucose (UA) Normal, Urine Ketones Negative, Urine Occult Blood 10 H, Urine Nitrite Negative, Urine Bilirubin Negative, Urine Urobilinogen Normal, Ur Leukocyte Esterase Negative, Urine RBC 0 SEEN, Urine WBC 0 SEEN, Ur Squamous Epith Cells 0 SEEN, Urine Bacteria 0 SEEN, Urine Mucus 0 SEEN Micro: Microbiology 09/15/23 15:12 Mucosa - Oral SARS-CoV-2, Influenza & RSV (PCR) - Final Imaging Radiology Impression Brain CT 09/15/23 14:44 IMPRESSION: 1. No acute intracranial process. MRI of the brain is suggested. 2. 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 3. Chronic involutional changes of the brain. 4. No evidence of acute bleed. 5. If symptoms persist, MRI of the brain is recommended. N.B. : The above Results were Read Back by Darren Gonzalez MD to Panchito Huff DO, and understanding confirmed on 09/15/2023 15:10:21 (ET). Electronically Signed: Darren Gonzalez MD at 15:10 EDT , ADDENDUM: 09/15/23 1257 IMPRESSION: 1. No acute intracranial process. MRI of the brain is suggested. 2. 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 3. Chronic involutional changes of the brain. 4. No evidence of acute bleed. 5. If symptoms persist, MRI of the brain is recommended. N.B. : The above Results were Read Back by Darren Gonzalez MD to Panchito Huff DO, and understanding confirmed on 09/15/2023 15:10:21 (ET). Electronically Signed: Darern Gonzalez MD at 15:10 EDT , Head/Neck CTA 09/15/23 14:44 IMPRESSION: 1. Mild irregularity of the left M1 segment without significant stenosis. 2. Atherosclerotic calcifications of the cavernous internal carotid arteries with mild stenosis on the left side. 3. Otherwise no intracranial great vessel stenosis. 4. Calcifications in the bulb regions bilaterally worse on the left side with less than 50% stenosis. 5. Patent bilateral vertebral arteries. N.B. : The above Results were Read Back by Darren Gonzalez MD to Panchito Huff DO, and understanding confirmed on 09/15/2023 15:16:32 (ET). Electronically Signed: Darren Gonzalez MD at 15:21 EDT , ADDENDUM: 09/15/23 1528 IMPRESSION: 1. Mild irregularity of the left M1 segment without significant stenosis. 2. Atherosclerotic calcifications of the cavernous internal carotid arteries with mild stenosis on the left side. 3. Otherwise no intracranial great vessel stenosis. 4. Calcifications in the bulb regions bilaterally worse on the left side with less than 50% stenosis. 5. Patent bilateral vertebral arteries. N.B. : The above Results were Read Back by Darren Gonzalez MD to Panchito Huff DO, and understanding confirmed on 09/15/2023 15:16:32 (ET). Electronically Signed: Darren Gonzalez MD at 15:21 EDT , Chest X-Ray 09/15/23 15:38 IMPRESSION: There are no acute findings. Electronically Signed: Jf Scott MD at 16:11 EDT , Assessment & Plan Assessment/Plan (1) Acute metabolic encephalopathy: PLAN: Plan Patient is an 88-year-old gentleman admitted with altered mental status 1. Acute metabolic encephalopathy Secondary to combination of acute on chronic kidney disease as well as partially treated acute cystitis. Initial head CT obtained was negative for acute CVA. Patient admitted to monitored bed with treatment of the underlying etiology 2. Acute on chronic kidney disease ? Patient baseline creatinine ranges from 1.9-2.2 creatinine on admission was 2.92. Potential nephrotoxic medications held patient started on IV hydration monitor with daily BMPs ordered 3. Recently diagnosed acute cystitis ? Patient was started on Cipro switched to ceftriaxone pending receipt of culture result 4. Coronary artery disease ? With previous PCI 5. Hypothyroidism - Patient is on levothyroxine home dose continued 6. Hypertension - Blood pressure controlled, home medications continued with dose adjustment as needed 7. Diabetes mellitus type 2 ? Patient is on long-acting insulin as well as scheduled short acting insulin did continue in addition to Accu-Cheks ACHS with sliding scale coverage 8. Gout ? Patient is on allopurinol discontinued 9. Generalized osteoarthritis ? Patient is on indomethacin given his impaired kidney function this was held 10. Dementia ? Patient is on donepezil discontinued 11. DVT prophylaxis Patient placed on enoxaparin dose adjusted for kidney function Time spent in the patient's overall evaluation,decision-making process, review of diagnostic data, adjustment of management, discussion with other providers, nursing nursing and ancillary staff involved in patient's care documentation, 75 minutes Advance planning; did discuss with the patient and family regarding advanced directives as well as CODE STATUS. Did explain the various scenarios involved ( FULL CODE, DNR CCA, DNR CCA with no intubation, and DNR CC and what each meant) patient elected to be DNR CCA no intubation. Order was placed. Time spent on discussion 18 minutes. Charges/Coding Visit Charges Inpatient E&M: 65852 Init Hosp L3 Procedures Hospitalists Procedures: 54258 Advncd Care Plan 30 Min
[2023-09-15] MEDS: 0.9% Normal Saline (1000mL) 1,000 ML 125 ML IV (18:46)
[2023-09-15] MEDS: Insulin Lispro 100 UNIT/ML INSULN.PEN SC (21:38)
[2023-09-15] MEDS: Insulin Glargine-YFGN 100 UNIT/ML Pen 15 UNIT SC (21:39)
[2023-09-15] MEDS: Acetaminophen 500 MG Tablet 1000 MG PO (21:41)
[2023-09-15] MEDS: Famotidine 20 MG Tablet PO (21:41)
[2023-09-15 21:52] LABS: Bedside Glucose 212 mg/dL (74-106)
[2023-09-16] VITALS (9 sets, daily range): BP systolic 98–151; BP diastolic 63–73; PULSE 60–90; RESP 14–18; TEMP 36.1–36.2; O2SAT 94–100
[2023-09-16] MEDS: 0.9% Normal Saline (1000mL) 1,000 ML 125 ML IV (02:58)
[2023-09-16] MEDS: Acetaminophen 500 MG Tablet 1000 MG PO ×2 (06:27→12:26)
[2023-09-16] MEDS: Levothyroxine 100 MCG Tablet PO (06:27)
[2023-09-16 07:00] LABS: Bedside Glucose 93 mg/dL (74-106)
[2023-09-16 07:04] LABS: Absolute Lymphocyte Count 1.41 X10^3/uL (0.83-4.51); Absolute Neutrophil Count 3.8 X10^3/uL (2.0-7.7); Basophil# 0.03 X10^3/uL; Basophil% 0.5 % (0-1); Eosinophils% 1.5 % (0-5); Hematocrit 34.4 % (40-54); Hemoglobin 10.9 g/dL (13.0-16.5); Lymphocyte # 1.41 X10^3/ul (0.83-4.51); Lymphocyte % 21.2 % (19-41); Mean Corp Hgb Conc 31.7 g/dL (32-36); Mean Corpuscular Hgb 30.3 pg (27.0-32.0); Mean Corpuscular Volume 95.6 fL (80-94); Mean Platelet Vol. 12.5 fl (6.2-12.0); Monocyte# 1.17 X10^3/uL; Monocyte% 17.6 % (0-10); NRBC Flagged by Analyzer 0 % (0-5); Neutrophil # 3.83 X10^3/uL (2.7-7.7); Neutrophil % 57.7 % (47-70); POSITIVE COUNT YES; RBC Distribution Width CV 14.2 % (11.6-14.6); RBC Distribution Width SD 49.1 fl (35.1-43.9); White Blood Count 6.6 K/mm3 (4.4-11.0)
[2023-09-16] MEDS: Glucerna Shake 120 ML LIQUID PO ×3 (07:50→16:14)
[2023-09-16] MEDS: Enoxaparin 30 MG/0.3 ML Syringe SC (07:53)
[2023-09-16] MEDS: Famotidine 20 MG Tablet PO (07:55)
[2023-09-16] MEDS: Aspirin 81 MG TAB.CHEW PO (07:55)
[2023-09-16] MEDS: Allopurinol 300 MG Tablet PO (07:56)
--- NOTE | 2023-09-16 08:01 | PCM.PN.HOSP ---
Reason for Visit Reason for Visit: Diagnoses Metabolic encephalopathy (09/15/23) Subjective Subjective Patient is an 88-year-old gentleman admitted with altered mental status and assessment of Acute metabolic encephalopathy Secondary to combination of acute on chronic kidney disease as well as partially treated acute cystitis. Admitted to monitored bed for subsequent treatment Objective Data Objective Data Vital Signs: Vital Signs Temp Pulse Resp BP Pulse Ox O2 Del Method 97.2 F L 72 14 151/73 H 97 Room Air 09/16/23 03:00 09/16/23 03:00 09/16/23 03:00 09/16/23 03:00 09/16/23 07:22 09/16/23 07:22 Oxygen Delivery Method Room Air Weight: 70.3 kg Body Mass Index (BMI) 25.0 Intake & Output: Intake and Output for Last 24 Hours 09/14/23 09/15/23 09/16/23 23:59 23:59 23:59 Intake Total 500 / 500 1000 / 1000 Output Total 100 / 300 420 / 420 Balance 400 / 200 580 / 580 Lab / Micro Data 09/16/23 05:55 09/16/23 05:55 Labs: Laboratory Results - last 24 hr 09/15/23 15:05: WBC 6.6, RBC 3.77 L, Hgb 11.6 L, Hct 35.8 L, MCV 95.0 H, MCH 30.8, MCHC 32.4, RDW Std Deviation 49.4 H, RDW Coeff of Sea 14.4, Plt Count 114 L, MPV 12.4 H, Immature Gran % (Auto) 0.900, Neut % (Auto) 68.1, Lymph % (Auto) 14.2 L, [place] % (Auto) 15.8 H, Eos % (Auto) 0.8, Baso % (Auto) 0.2, Absolute Neuts (auto) 4.5, Absolute Lymphs (auto) 0.94, Nucleated RBC % 0, PT 15.2 H, INR 1.2, APTT 34.2, Sodium 138, Potassium 4.4, Chloride 108 H, Carbon Dioxide 25.0, Anion Gap 5, BUN 37 H, Creatinine 2.92 H, Estim Creat Clear Calc 15.99, Est GFR (MDRD) Af Amer 26 L, Est GFR (MDRD) Non-Af 22 L, BUN/Creatinine Ratio 12.7, Glucose 167 H, Lactic Acid 1.4, Calcium 8.0 L, Troponin I High Sens 6 09/15/23 15:25: Urine Color Yellow, Urine Clarity Clear, Urine pH 5.0, Ur Specific [place] 1.020, Urine Protein 500 H, Urine Glucose (UA) Normal, Urine Ketones Negative, Urine Occult Blood 10 H, Urine Nitrite Negative, Urine Bilirubin Negative, Urine Urobilinogen Normal, Ur Leukocyte Esterase Negative, Urine RBC 0 SEEN, Urine WBC 0 SEEN, Ur Squamous Epith Cells 0 SEEN, Urine Bacteria 0 SEEN, Urine Mucus 0 SEEN 09/15/23 21:33: POC Glucose 212 H 09/16/23 06:24: POC Glucose 93 Micro: Microbiology 09/15/23 15:12 Mucosa - Oral SARS-CoV-2, Influenza & RSV (PCR) - Final Radiography Diagnostic Testing: Radiology Impression Brain CT 09/15/23 14:44 IMPRESSION: 1. No acute intracranial process. MRI of the brain is suggested. 2. 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 3. Chronic involutional changes of the brain. 4. No evidence of acute bleed. 5. If symptoms persist, MRI of the brain is recommended. N.B. : The above Results were Read Back by Darren Gonzalez MD to Panchito Huff DO, and understanding confirmed on 09/15/2023 15:10:21 (ET). Electronically Signed: Darren Gonzalez MD at 15:10 EDT , ADDENDUM: 09/15/23 1517 IMPRESSION: 1. No acute intracranial process. MRI of the brain is suggested. 2. 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 3. Chronic involutional changes of the brain. 4. No evidence of acute bleed. 5. If symptoms persist, MRI of the brain is recommended. N.B. : The above Results were Read Back by Darren Gonzalez MD to Panchito Huff DO, and understanding confirmed on 09/15/2023 15:10:21 (ET). Electronically Signed: Darren Gonzalez MD at 15:10 EDT , Head/Neck CTA 09/15/23 14:44 IMPRESSION: 1. Mild irregularity of the left M1 segment without significant stenosis. 2. Atherosclerotic calcifications of the cavernous internal carotid arteries with mild stenosis on the left side. 3. Otherwise no intracranial great vessel stenosis. 4. Calcifications in the bulb regions bilaterally worse on the left side with less than 50% stenosis. 5. Patent bilateral vertebral arteries. N.B. : The above Results were Read Back by Darren Gonzalez MD to Panchito Huff DO, and understanding confirmed on 09/15/2023 15:16:32 (ET). Electronically Signed: Darren Gonzalez MD at 15:21 EDT , ADDENDUM: 09/15/23 1528 IMPRESSION: 1. Mild irregularity of the left M1 segment without significant stenosis. 2. Atherosclerotic calcifications of the cavernous internal carotid arteries with mild stenosis on the left side. 3. Otherwise no intracranial great vessel stenosis. 4. Calcifications in the bulb regions bilaterally worse on the left side with less than 50% stenosis. 5. Patent bilateral vertebral arteries. N.B. : The above Results were Read Back by Darren Gonzalez MD to Panchito Huff DO, and understanding confirmed on 09/15/2023 15:16:32 (ET). Electronically Signed: Darren Gonzalez MD at 15:21 EDT , Chest X-Ray 09/15/23 15:38 IMPRESSION: There are no acute findings. Electronically Signed: Jf Scott MD at 16:11 EDT , Abdomen/Pelvis CT 09/15/23 16:13 IMPRESSION: (NOT LISTED IN ORDER OF SIGNIFICANCE) Urinary bladder wall has wall thickening. This can be related to a partially contractile state. However, a cystitis is not excluded. Urinalysis should be performed in an effort to exclude cystitis. Urinary bladder diverticula Other findings as above. Electronically Signed: Jf Scott MD at 17:10 EDT , Physical Exam Narrative GENERAL: cooperative HEENT: Atraumatic; normocephalic EYES; Anicteric, Normal Conjunctiva NECK; supple, normal thyroid, RESPIRATORY: Diminished to auscultation CARDIOVASCULAR: Regular S1 S2, GI: soft, normoactive bowel sounds, : No Renal angle tenderness; EXTREMITIES: No edema, no clubbing, MUSCULOSKELETAL: no muscle wasting NEURO: Awake; no lateralizing signs. SKIN: No Rash PSYCH; Flat affect Assessment & Plan Assessment/Plan (1) Acute metabolic encephalopathy: PLAN: Plan Patient is an 88-year-old gentleman admitted with altered mental status 1. Acute metabolic encephalopathy Secondary to combination of acute on chronic kidney disease as well as partially treated acute cystitis. Initial head CT obtained was negative for acute CVA. Patient admitted to monitored bed with treatment of the underlying etiology ? 09/16/2023 patient appears to be back to his baseline 2. Acute on chronic kidney disease ? Patient baseline creatinine ranges from 1.9-2.2 creatinine on admission was 2.92. Potential nephrotoxic medications held patient started on IV hydration monitor with daily BMPs ordered ? 09/16/2023; kidney function improving 3. Recently diagnosed acute cystitis ? Patient was started on Cipro switched to ceftriaxone pending receipt of culture result ? 09/16/2023 cultures pending 4. Coronary artery disease ? With previous PCI 5. Hypothyroidism - Patient is on levothyroxine home dose continued 6. Hypertension - Blood pressure controlled, home medications continued with dose adjustment as needed 7. Diabetes mellitus type 2 ? Patient is on long-acting insulin as well as scheduled short acting insulin did continue in addition to Accu-Cheks ACHS with sliding scale coverage 8. Gout ? Patient is on allopurinol discontinued 9. Generalized osteoarthritis ? Patient is on indomethacin given his impaired kidney function this was held 10. Dementia ? Patient is on donepezil discontinued 11. DVT prophylaxis Patient placed on enoxaparin dose adjusted for kidney function Time spent in the patient's overall evaluation,decision-making process, review of diagnostic data, adjustment of management, discussion with other providers, nursing nursing and ancillary staff involved in patient's care documentation, 38 min
[2023-09-16 08:05] LABS: Differential Indicated SCAN CRITERIA MET
[2023-09-16 08:06] LABS: AST(SGOT) 19 U/L (15-37); Alanine Aminotransfer ALT/SGPT 15 U/L (16-61); Albumin, Serum 2.7 g/dL (3.2-5.0); Alkaline Phosphatase 76 U/L (45-117); Anion Gap 4 (5-15); BUN 31 mg/dL (7-18); BUN/Creat Ratio 12.4 RATIO (10-20); Bilirubin, Direct 0.11 mg/dL (0.00-0.30); Chloride 116 mmol/L (98-107); Creatinine, Serum 2.51 mg/dL (0.70-1.30); EST Glomerular Filtration Rate 26 mL/min (>60); Est Glom Filt Rate - Afr Amer 31 mL/min (>60); Globulin 3.6 g/dL (2.2-4.2); Glucose 106 mg/dL (74-106); Magnesium 1.7 mg/dL (1.6-2.6); Phosphorus 3.5 mg/dL (2.5-4.9); Platelet Estimate SLT DEC (ADEQ); Potassium 4.2 mmol/L (3.5-5.1); Protein, Total 6.3 g/dL (6.4-8.2); Sodium Level 142 mmol/L (136-145)
[2023-09-16] MEDS: Ondansetron 4 MG/2 ML Vial IV (10:20)
[2023-09-16 11:16] LABS: Bedside Glucose 130 mg/dL (74-106)
[2023-09-16] MEDS: Metoprolol(XL)Succ 50 MG Tablet PO (12:25)
[2023-09-16 16:25] LABS: Bedside Glucose 148 mg/dL (74-106)
--- NOTE | 2023-09-16 21:00 | NURSING ---
This RN bedside to assess pt and give nightly meds. Pt very confused, A+O to self only and suspicious of staff. This RN attempted to talk w/ pt and gain trust. Pt believes this RN is lying to him. TECHNICAL OPERATOR Shane attmempted to perla to patinet, pt remains suspicious. Pt refusing vitals to be taken, meds and BGT. After some time, pt agreeable to BP, when putting pulse ox on pt finger he became aggressive and swung the pox around until it flung off. Pt requesting this RN and TECHNICAL OPERATOR to leave. Dr. Mills notified of pt condition and inability to give meds/ sugar, aware and ok.
[2023-09-17] VITALS (7 sets, daily range): BP systolic 110–155; BP diastolic 63–72; PULSE 56–82; RESP 14–18; TEMP 36.2–36.3; O2SAT 95–100
[2023-09-17 06:50] LABS: Bedside Glucose 116 mg/dL (74-106)
[2023-09-17 07:07] LABS: Absolute Lymphocyte Count 1.29 X10^3/uL (0.83-4.51); Absolute Neutrophil Count 5.6 X10^3/uL (2.0-7.7); Basophil# 0.02 X10^3/uL; Basophil% 0.2 % (0-1); Eosinophil# 0.07 X10^3/uL; Eosinophils% 0.8 % (0-5); Hematocrit 35.4 % (40-54); Hemoglobin 11.4 g/dL (13.0-16.5); Lymphocyte # 1.29 X10^3/ul (0.83-4.51); Mean Corp Hgb Conc 32.2 g/dL (32-36); Mean Corpuscular Hgb 30.1 pg (27.0-32.0); Mean Corpuscular Volume 93.4 fL (80-94); Mean Platelet Vol. 12.6 fl (6.2-12.0); Monocyte# 1.49 X10^3/uL; Monocyte% 17.3 % (0-10); NRBC Flagged by Analyzer 0 % (0-5); Neutrophil % 65.2 % (47-70); Platelet Count 111 K/mm3 (150-450); RBC Distribution Width CV 14.1 % (11.6-14.6); RBC Distribution Width SD 48.4 fl (35.1-43.9); Red Blood Count 3.79 M/mm3 (4.6-6.2); White Blood Count 8.6 K/mm3 (4.4-11.0)
[2023-09-17 07:25] LABS: Anion Gap 9 (5-15); BUN 31 mg/dL (7-18); BUN/Creat Ratio 11.6 RATIO (10-20); Chloride 112 mmol/L (98-107); Creatinine, Serum 2.68 mg/dL (0.70-1.30); EST Glomerular Filtration Rate 24 mL/min (>60); Est Glom Filt Rate - Afr Amer 29 mL/min (>60); Estimated Creatinine Clearance 16.86 ml/min; Glucose 128 mg/dL (74-106); Potassium 4.6 mmol/L (3.5-5.1); Sodium Level 143 mmol/L (136-145)
[2023-09-17] MEDS: Aspirin 81 MG TAB.CHEW PO (08:28)
[2023-09-17] MEDS: Allopurinol 300 MG Tablet PO ×2 (08:28)
[2023-09-17] MEDS: Enoxaparin 30 MG/0.3 ML Syringe SC (08:28)
[2023-09-17] MEDS: Metoprolol(XL)Succ 50 MG Tablet PO (08:29)
[2023-09-17] MEDS: Famotidine 20 MG Tablet PO (08:36)
--- NOTE | 2023-09-17 10:59 | CASEMGMT ---
RN CM Assessment Face to Face with patient for initial transition planning/care coordination assessment. Pt is currently disoriented and unable to answer this RN KATIE questions appropriately for assessment. Pt NOK on file called at this time. Pt (Dorinda) states that she is willing to answer this RN KATIE questions. Care providers, pharmacy, and demographics verified. Admitting dx: Acute Encephalopathy PCP: Maritza Specialists: ROSA Samano [facility]acy: [facility] Insurance: [employer] Prescription Benefit: Yes LNOK: Dorinda Walden (W), Geeta Salasshanice (FABRIZIO) Living Arrangements: Pt lives with his in a single story home with a BM with HR with 3 steps to enter with a HR. Pt states that the pt does not go downstairs. ADLs/IADLs: assists Transportation: DME: Working [employer] with enough supplies. Pt uses a walker at home. Cane. Shower seat and GB. Raised toilet seat. HHC/SNF: History at [facility] and [facility]HC. Plan: TBD. Anticipate SNF vs HHC. PT and OT was unable to evaluate the pt on 09/15 d/t confusion. Pt did not refuse SNF at this time. CM and SW to follow pt progression and therapy to see what the pt qualifies for in regard to safe DC from [facility]. Stacy Kelly RN, CM
[2023-09-17 12:15] LABS: Bedside Glucose 117 mg/dL (74-106)
[2023-09-17] MEDS: Acetaminophen 500 MG Tablet 1000 MG PO ×2 (14:36→20:57)
--- NOTE | 2023-09-17 14:38 | CASEMGMT ---
RN CM: Dr. Real relayed discharge plan of SNF after discussion with pt and pt's . This RN CM introduced self to pt and pt's at bedside. Pt noted to be confused and with hx of dementia. Pt's states she agrees with transition to SNF at discharge and requests [facility] as pt has been there previously and pt is familiar with the staff. Pt's declines a complete list of in-network SNF facilities. Referral sent via [facility]. Will follow for acceptance. Vazquez Ferrer RN ACM
[2023-09-17] MEDS: Amoxicillin 250 MG Capsule PO ×2 (14:41→20:57)
[2023-09-17] MEDS: Glucerna Shake 120 ML LIQUID PO (16:10)
[2023-09-17 16:48] LABS: Bedside Glucose 138 mg/dL (74-106)
--- NOTE | 2023-09-17 17:36 | PN.HOSP_ITS ---
Reason for Visit Reason for Visit: Diagnoses Metabolic encephalopathy (09/15/23) Subjective Subjective Patient was seen and examined today, he is lethargic and somnolent, I spent approximately 20 minutes discussing his care with the patient's . Patient does have dementia but is functional to the point where he can feed himself but not totally dress himself. Patient's urine culture during this admission was negative for growth however patient's outpatient urine culture that he had performed 1 day before he came in here was positive for Enterococcus, I placed the patient on amoxicillin orally today. I will also administer some IV fluids and reevaluate the patient tomorrow. Objective Data Objective Data Vital Signs: Vital Signs Temp Pulse Resp BP Pulse Ox O2 Del Method 97.2 F L 56 L 15 110/70 100 Room Air 09/17/23 14:25 09/17/23 14:25 09/17/23 14:25 09/17/23 14:25 09/17/23 14:25 09/17/23 14:25 Oxygen Delivery Method Room Air Weight: 70.3 kg Body Mass Index (BMI) 25.0 Intake & Output: Intake and Output for Last 24 Hours 09/15/23 09/16/23 09/17/23 23:59 23:59 23:59 Intake Total 500 / 500 2700 / 2700 310 / 310 Output Total 100 / 300 1020 / 1020 Balance 400 / 200 1680 / 1680 310 / 310 Lab / Micro Data 09/17/23 06:06 09/17/23 06:06 Labs: Laboratory Results - last 24 hr 09/17/23 06:06: WBC 8.6, RBC 3.79 L, Hgb 11.4 L, Hct 35.4 L, MCV 93.4, MCH 30.1, MCHC 32.2, RDW Std Deviation 48.4 H, RDW Coeff of Sea 14.1, Plt Count 111 L, MPV 12.6 H, Immature Gran % (Auto) 1.500 H, Neut % (Auto) 65.2, Lymph % (Auto) 15.0 L, Beckham % (Auto) 17.3 H, Eos % (Auto) 0.8, Baso % (Auto) 0.2, Absolute Neuts (auto) 5.6, Absolute Lymphs (auto) 1.29, Nucleated RBC % 0, Sodium 143, Potassium 4.6, Chloride 112 H, Carbon Dioxide 22.0, Anion Gap 9, BUN 31 H, Creatinine 2.68 H, Estim Creat Clear Calc 16.86, Est GFR (MDRD) Af Amer 29 L, Est GFR (MDRD) Non-Af 24 L, BUN/Creatinine Ratio 11.6, Glucose 128 H, Calcium 9.0 09/17/23 06:08: POC Glucose 116 H 09/17/23 11:47: POC Glucose 117 H 09/17/23 16:09: POC Glucose 138 H Micro: Microbiology 09/15/23 15:10 Blood Culture (Wb) - Anticubital Right Blood Culture - Preliminary No growth in 48 hours. 09/15/23 15:05 Blood Culture (Wb) - Right Forearm Blood Culture - Preliminary No growth in 48 hours. 09/15/23 15:25 Urine Catheter - Catheter Urine Culture - Final Culture exhibits no growth. 09/15/23 15:12 Mucosa - Oral SARS-CoV-2, Influenza & RSV (PCR) - Final Physical Exam Const no apparent distress Constitutional Narrative: Patient is somnolent and lethargic General Appearance: cooperative, well kempt and well developed HEENT normocephalic, head/scalp atraumatic and moist oral mucous membranes Eyes PERRL, EOMs intact bilaterally and conjunctivae normal Neck supple, no JVD, thyroid normal and no carotid bruits General: trachea midline Resp normal respiratory effort, no retractions, no use of accessory muscles and clear to auscultation bilaterally Auscultation: Negative for rales, rhonchi or wheezes Cardio regular rate, regular rhythm, S1 normal heart sound, S2 normal heart sound, no murmurs, no rub and no gallops GI normal to inspection, nondistended, normoactive bowel sounds, soft to palpation, non-tender and non-distended Extremity no clubbing, cyanosis or edema Skin no rashes or lesions noted General Skin Exam: no breakdown Neuro CN's II-XII intact bilaterally Neuro Narrative: Patient is somnolent and lethargic Speech: speech normal Psych Psych Narrative: Patient is somnolent and lethargic Assessment & Plan Assessment/Plan (1) Acute metabolic encephalopathy: PLAN: Plan 1. Acute metabolic encephalopathy-secondary to acute dehydration and cystitis- on a backdrop of chronic dementia-again I have decided to administer fluids overnight and reevaluate the patient tomorrow. #2 acute cystitis-I have elected to treat the patient with oral amoxicillin even though his urine culture obtained when he was admitted is now negative, he is urine culture which was performed as an outpatient grew out Enterococcus. #3 dementia-complicates care, management, recovery, and prognosis #4 acute debility secondary to multiple medical problems-patient is being seen by PT and OT, patient's is okay with the patient going to a skilled care facility for short-term rehab services, we are going to check on [facility] at her request. #5 chronic kidney disease stage IV-complicates care, management, recovery, and prognosis #6 type 2 diabetes-patient will continue to have fingerstick blood sugars performed and sliding scale insulin will be administered as needed #7 essential hypertension-patient will continue on his home medications, they will be adjusted as needed Total clinical time spent by myself addressing the patient's medical issues, reviewing all of his data, and collaborating with patient's care team: 35 minutes Charges/Coding Visit Charges Inpatient E&M: 36181 Subs Hosp L2
[2023-09-17] MEDS: 0.9% Saline Lock 10 ML Syringe IV (20:57)
[2023-09-17] MEDS: Insulin Glargine-YFGN 100 UNIT/ML Pen 15 UNIT SC (21:43)
[2023-09-17 22:03] LABS: Bedside Glucose 142 mg/dL (74-106)
[2023-09-18 03:38] VITALS: BP 150/76; PULSE 70; RESP 17; TEMP 36.3; O2SAT 98
[2023-09-18] MEDS: Levothyroxine 100 MCG Tablet PO (06:19)
[2023-09-18] MEDS: Acetaminophen 500 MG Tablet 1000 MG PO ×2 (06:19→13:10)
[2023-09-18] MEDS: Amoxicillin 250 MG Capsule PO ×2 (06:19→13:10)
[2023-09-18 06:52] LABS: Bedside Glucose 96 mg/dL (74-106)
[2023-09-18 07:18] VITALS: O2SAT 96
[2023-09-18 08:32] VITALS: BP 138/64; PULSE 75
[2023-09-18] MEDS: Famotidine 20 MG Tablet PO (08:32)
[2023-09-18] MEDS: Glucerna Shake 120 ML LIQUID PO ×2 (08:32→11:38)
[2023-09-18] MEDS: Enoxaparin 30 MG/0.3 ML Syringe SC (08:32)
[2023-09-18] MEDS: Aspirin 81 MG TAB.CHEW PO (08:32)
[2023-09-18] MEDS: Metoprolol(XL)Succ 50 MG Tablet PO (08:32)
[2023-09-18] MEDS: 0.9% Saline Lock 10 ML Syringe IV (08:32)
[2023-09-18 09:40] VITALS: BP 132/61; PULSE 78; RESP 14; TEMP 36.1; O2SAT 100
--- NOTE | 2023-09-18 09:48 | CASEMGMT ---
[facility] accepted patient. DARREN will notify patient's . DARREN asked [facility] to start pre-cert. Plan: d/c to [facility] pending insurance approval. Christine SMITH
[2023-09-18 11:06] LABS: Bedside Glucose 149 mg/dL (74-106)
--- NOTE | 2023-09-18 11:12 | CASEMGMT ---
Addendum entered by Christine Perera 09/18/23 11:26: DARREN also notified patient's that [facility] can take patient. Christine SMITH Original Note: DARREN faxed clinical information to [employer] to obtain insurance authorization. Plan: [facility] pending insurance approval. Christine SMITH
--- NOTE | 2023-09-18 11:43 | CASEMGMT ---
SW received a call from Annette with [facility]. Patient was approved for [facility]. The reference number is [id number]. SW notified physician and [facility]. Plan: d/c to [facility] under skilled level of care. Christine SMITH
--- NOTE | 2023-09-18 12:42 | PCM.TXEXTCAR ---
Diet Diet Order/Speech Therapy: 09/15/23 17:58 Diet: Cardiac: Calorie-Controlled Food consistency:: Soft & Bite Sized Liquid Consistency:: Regular/Thin Diet Comments: 1:1 direct supervision, soft foods, small sips, upright for all meals How many daily calories?: 1800 calorie Routine Orders/Code Status Routine Lab Work: BMP (IN ONE WEEK) and - (AC nightly blood sugars, Humalog subcu per results of blood sugar: 200-250: 5 units, 251-300: 8 units, 301-350: 12 units) Code Status: DNRCC-A (No intubation) Wound(s) Left Forearm: Wound Type: scab Therapies Weight Bearing: Full weight bearing Physical Therapy: Eval and Treat Occupational Therapy: Eval and Treat Problem/Diagnosis (1) Acute metabolic encephalopathy: Status: Acute Code(s): G93.41 - Metabolic encephalopathy Plan 1. Acute metabolic encephalopathy-secondary to acute dehydration and cystitis-on a backdrop of chronic dementia-again I have decided to administer fluids overnight and reevaluate the patient tomorrow. #2 acute cystitis-I have elected to treat the patient with oral amoxicillin even though his urine culture obtained when he was admitted is now negative, he is urine culture which was performed as an outpatient grew out Enterococcus. #3 dementia-complicates care, management, recovery, and prognosis #4 acute debility secondary to multiple medical problems-patient is being seen by PT and OT, patient's is okay with the patient going to a skilled care facility for short-term rehab services, we are going to check on [facility] at her request. #5 chronic kidney disease stage IV-complicates care, management, recovery, and prognosis #6 type 2 diabetes-patient will continue to have fingerstick blood sugars performed #7 essential hypertension-patient will continue on his home medications, they will be adjusted as needed Total clinical time spent by myself addressing the patient's medical issues, reviewing all of his data, and collaborating with patient's care team: 35 minutes Allergies/Procedures Done in Hospital Allergies clopidogrel bisulfate [From Plavix] Allergy (Verified 09/14/23 11:34) Rash cyclobenzaprine [Cyclobenzaprine] Allergy (Verified 09/14/23 11:34) Rash fluoxetine HCl [From Prozac] Allergy (Verified 04/05/24 11:34) Rash Procedures: None Type of Care/Length of Stay Estimated LOS: Convalescent Care Less Than 30 days Type of Care Needed: Skilled Rehab Potential: Good Prognosis: Good Additional Orders/Day of Discharge H&P will serve as current which was dated: 09/15/23 Day of Discharge: 09/18/23 Dietary and Speech Recommendations Dietitian Recommendations/Changes: Continue 1800 helena Cardiac diet Continue 120 ml glucerna shake tid w/ medpass Discharge Plan Admission Admit Date/Time: 09/15/23 16:27 Primary Reason for Your Visit: Metabolic encephalopathy, dehydration, acute cystitis Attending Provider: Regis Real Primary Care Provider: Mike Salas Consulting Providers: Sy Oneill Discharge Orders/Prescriptions Prescriptions: New insulin glargine-yfgn 100 unit/mL (3 mL) Insulin Pen 15 unit subcut QHS Qty: 0 0RF amoxicillin 250 mg Capsule 250 mg PO Q8 Qty: 1 0RF Rx Instructions: Give a total of 17 doses then discontinue medication Continued nitroglycerin 0.4 mg tablet, sublingual 0.4 mg SUBLINGUAL Q5M PRN (Reason: Chest Pain) Qty: 25 3RF allopurinol 300 mg tablet 300 mg PO QDAY acetaminophen 500 mg Tablet 500 mg PO Q6H PRN (Reason: Pain) levothyroxine 100 mcg tablet 100 mcg PO DAILY Patient Comments: TAKE 1 TABLET BY MOUTH ONCE DAILY aspirin 81 mg Tablet,Chewable 81 mg PO BREAKFAST Qty: 0 0RF donepezil 10 mg tablet 10 mg PO metoprolol succinate 50 mg tablet extended release 24 hr See Rx Instructions .ROUTE .COMPLEX Qty: 90 3RF Dose Instruction: TAKE 1 TABLET BY MOUTH ONCE DAILY FOR THE HEART. Rx Instructions: TAKE 1 TABLET BY MOUTH ONCE DAILY FOR THE HEART. Discontinued indomethacin 25 mg capsule 25 mg PO TID ciprofloxacin HCl 500 mg tablet 500 mg PO BID 7 Days Qty: 14 0RF insulin lispro [Humalog KwikPen Insulin] 100 unit/mL Insulin Pen See Rx Instructions subcut TIDAC Protocol: 3. Sliding Scale Insulin Med Dosing Condition: 150-189 mg/dl = 1 unit Condition: 190-229 mg/dl = 2 units Condition: 230-269 mg/dl = 3 units Condition: 270-309 mg/dl = 4 units Condition: 310-349 mg/dl = 5 units Condition: 350-399 mg/dl = 6 units Condition: 400-449 mg/dl = 7 units Condition: Greater than 449 call physician Protocol Text: - Use for Total Daily Dose of Insulin 37-55 units - Obsese, infected, or steroid patients MEDIUM DOSING ALGORITHIM Patient Comments: 5 units in the am, 8 u for lunch, 5u dinner Rx Instructions: subcutaneously three times daily before meals; insulin glargine-yfgn 100 unit/mL (3 mL) Insulin Pen 1 unit subcut QHS Patient Comments: gives 15-25 units depends on what his sugar is Referrals / Follow Up: Mike Salas MD [Primary Care Provider] - Disposition Disposition (needs filled in before D/C Order can be placed): [facility] Care Facility
--- NOTE | 2023-09-18 13:05 | DS.PCM_ITS ---
Providers Date of Admission: 09/15/23 Date of Discharge: 09/18/23 Primary Care Physician: Dr. Mike Salas MD Reason For Visit: ACUTE ENCEPHALOPATHY Diagnosis Discharge Diagnosis (1) Acute metabolic encephalopathy: Status: Acute Code(s): G93.41 - Metabolic encephalopathy Plan 1. Acute metabolic encephalopathy-secondary to acute dehydration and cystitis- on a backdrop of chronic dementia-again I have decided to administer fluids overnight and reevaluate the patient tomorrow. #2 acute cystitis present on admission-I have elected to treat the patient with oral amoxicillin even though his urine culture obtained when he was admitted is now negative, he is urine culture which was performed as an outpatient grew out Enterococcus. #3 dementia-complicates care, management, recovery, and prognosis #4 acute debility secondary to multiple medical problems-patient is being seen by PT and OT, patient's is okay with the patient going to a skilled care facility for short-term rehab services, we are going to check on [facility] at her request. #5 chronic kidney disease stage IV-complicates care, management, recovery, and prognosis #6 type 2 diabetes-patient will continue to have fingerstick blood sugars performed #7 essential hypertension-patient will continue on his home medications, they will be adjusted as needed Total clinical time spent by myself addressing the patient's medical issues, reviewing all of his data, and collaborating with patient's care team: 35 minutes Medications at Discharge Home Medications nitroglycerin 0.4 mg sublingual tablet 0.4 mg sublingual Q5M PRN Chest Pain #25 tabs 11/06/18 acetaminophen 500 mg tablet 500 mg PO Q6H PRN Pain 04/12/22 levothyroxine 100 mcg tablet 100 mcg PO DAILY THYROID 04/12/22 metoprolol succinate 50 mg tablet,extended release 24 hr See Rx Instructions .Route .COMPLEX #90 TABLETS 10/30/22 aspirin 81 mg chewable tablet 81 mg PO BREAKFAST #0 tabs 03/08/23 allopurinol 300 mg tablet 300 mg PO QDAY 09/14/23 donepezil 10 mg tablet 10 mg PO 09/15/23 amoxicillin 250 mg capsule 250 mg PO Q8 #1 cap 09/18/23 insulin glargine-yfgn 100 unit/mL (3 mL) subcutaneous pen 15 unit (0.15 mL) subcut QHS #0 mL 09/18/23 Hospital Course Operations None Procedures None Summary of Care Provided Minutes Spent on Discharge: 32 Hospital Course: 78-year-old white male was seen in the emergency room at [facility] after being brought in by EMS at his 's request due to change in his mental status. Patient does have a history of dementia and had recently been diagnosed with cystitis. Workup in the ER included a CBC which was remarkable for hemoglobin 11.6, white blood cell count was normal. Patient's creatinine was elevated at 2.92 and BUN was 37. 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 The ER physician contacted stroke neurology and the patient was evaluated, stroke neurology did not feel the patient's presentation was due to an acute stroke, they felt it was likely either infectious or metabolic. Patient was admitted to PCU, he was given IV fluids, patient's urine culture obtained in the emergency room showed no growth, however, the patient's outpatient urinalysis that had been performed the day before he was seen in the emergency room was positive for Enterococcus. Patient was placed on amoxicillin, his mental status improved somewhat during his hospitalization but he still remained debilitated and weak, decision was made that the patient should go to an extended care facility for short-term skilled services- agr eed to this and the patient agreed to this. On 09/18/2023, patient was seen and examined: On examination he appeared fatigued and frail. Vital signs as documented. Skin warm and dry and without overt rashes. Neck without JVD, neck was supple, trachea midline, thyroid was normal. Lungs clear bilaterally, normal air movement was noted. Heart exam notable for regular rhythm, normal sounds and absence of murmurs, rubs or gallops. Abdomen unremarkable and without evidence of organomegaly, masses, or abdominal aortic enlargement. Bowel sounds are present, abdomen is not distended. Extremities nonedematous, no cyanosis was noted, no clubbing was noted. Neuro: Cranial nerves II through XII are grossly intact, no focal motor deficits were noted, sensation to light touch and pinprick intact, motor exam 5/5 throughout. Psych: Patient is alert, he exhibits some mild confusion Patient was transferred to skilled facility for inpatient rehab services on 09/18/2023 in stable condition. Weight / BMI Weight Weight: 70.3 kg Body Mass Index (BMI) 25.0 ABG / Lab / Microbiology Data 09/17/23 06:06 09/18/23 10:14 Laboratory: Laboratory Results - last 24 hr 09/17/23 16:09: POC Glucose 138 H 09/17/23 21:41: POC Glucose 142 H 09/18/23 06:26: POC Glucose 96 09/18/23 10:48: POC Glucose 149 H Microbiology: Microbiology 09/15/23 15:10 Blood Culture (Wb) - Anticubital Right Blood Culture - Preliminary No growth in 48 hours. 09/15/23 15:05 Blood Culture (Wb) - Right Forearm Blood Culture - Preliminary No growth in 48 hours. 09/15/23 15:25 Urine Catheter - Catheter Urine Culture - Final Culture exhibits no growth. 09/15/23 15:12 Mucosa - Oral SARS-CoV-2, Influenza & RSV (PCR) - Final Meaningful Use Info Meaningful Use Diagnoses (Choose all that apply): None applicable Discharge Plan Admission Admit Date/Time: 09/15/23 16:27 Primary Reason for Your Visit: Metabolic encephalopathy, dehydration, acute cystitis Attending Provider: Regis Real Primary Care Provider: Mike Salas Consulting Providers: Sy Oneill Discharge Orders/Prescriptions Prescriptions: New insulin glargine-yfgn 100 unit/mL (3 mL) Insulin Pen 15 unit subcut QHS Qty: 0 0RF amoxicillin 250 mg Capsule 250 mg PO Q8 Qty: 1 0RF Rx Instructions: Give a total of 17 doses then discontinue medication Continued nitroglycerin 0.4 mg tablet, sublingual 0.4 mg SUBLINGUAL Q5M PRN (Reason: Chest Pain) Qty: 25 3RF allopurinol 300 mg tablet 300 mg PO QDAY acetaminophen 500 mg Tablet 500 mg PO Q6H PRN (Reason: Pain) levothyroxine 100 mcg tablet 100 mcg PO DAILY Patient Comments: TAKE 1 TABLET BY MOUTH ONCE DAILY aspirin 81 mg Tablet,Chewable 81 mg PO BREAKFAST Qty: 0 0RF donepezil 10 mg tablet 10 mg PO metoprolol succinate 50 mg tablet extended release 24 hr See Rx Instructions .ROUTE .COMPLEX Qty: 90 3RF Dose Instruction: TAKE 1 TABLET BY MOUTH ONCE DAILY FOR THE HEART. Rx Instructions: TAKE 1 TABLET BY MOUTH ONCE DAILY FOR THE HEART. Discontinued indomethacin 25 mg capsule 25 mg PO TID ciprofloxacin HCl 500 mg tablet 500 mg PO BID 7 Days Qty: 14 0RF insulin lispro [Humalog KwikPen Insulin] 100 unit/mL Insulin Pen See Rx Instructions subcut TIDAC Protocol: 3. Sliding Scale Insulin Med Dosing Condition: 150-189 mg/dl = 1 unit Condition: 190-229 mg/dl = 2 units Condition: 230-269 mg/dl = 3 units Condition: 270-309 mg/dl = 4 units Condition: 310-349 mg/dl = 5 units Condition: 350-399 mg/dl = 6 units Condition: 400-449 mg/dl = 7 units Condition: Greater than 449 call physician Protocol Text: - Use for Total Daily Dose of Insulin 37-55 units - Obsese, infected, or steroid patients MEDIUM DOSING ALGORITHIM Patient Comments: 5 units in the am, 8 u for lunch, 5u dinner Rx Instructions: subcutaneously three times daily before meals; insulin glargine-yfgn 100 unit/mL (3 mL) Insulin Pen 1 unit subcut [facility] Patient Comments: gives 15-25 units depends on what his sugar is Referrals / Follow Up: Mike Salas MD [Primary Care Provider] - Disposition Disposition (needs filled in before D/C Order can be placed): Residential Facility Charges/Coding Visit Charges Inpatient E&M: 04054 Disch Hosp >30min
--- NOTE | 2023-09-18 13:34 | PHA.DC.MR.R ---
Pharmacy MD Med Reconciliation Pharmacy Service has performed discharge medication reconciliation for this patient. The patient's discharge medication list was reviewed for discrepancies and discrepancies were resolved. Medications at Discharge Home Medications nitroglycerin 0.4 mg sublingual tablet 0.4 mg sublingual Q5M PRN Chest Pain #25 tabs 11/06/18 acetaminophen 500 mg tablet 500 mg PO Q6H PRN Pain 04/12/22 levothyroxine 100 mcg tablet 100 mcg PO DAILY THYROID 04/12/22 metoprolol succinate 50 mg tablet,extended release 24 hr See Rx Instructions .Route .COMPLEX #90 TABLETS 10/30/22 aspirin 81 mg chewable tablet 81 mg PO BREAKFAST #0 tabs 03/08/23 allopurinol 300 mg tablet 300 mg PO QDAY 09/14/23 donepezil 10 mg tablet 10 mg PO 09/15/23 amoxicillin 250 mg capsule 250 mg PO Q8 #1 cap 09/18/23 insulin glargine-yfgn 100 unit/mL (3 mL) subcutaneous pen 15 unit (0.15 mL) subcut QHS #0 mL 09/18/23
--- NOTE | 2023-09-18 13:48 | CASEMGMT ---
Patient is ready for discharge to [facility]. SW completed a 7000 in [employer] system. SW sent orders to [facility] via [facility]. SW met with patient's and she said she would like to transport patient and she would like to leave at . SW attempted to reach RN to notify her, but there was no answer. SW will also need RN to get a Covid test on patient. Plan: d/c to [facility] under skilled level of care on a convalescent stay. Patient's will transport patient via private vehicle. Christine Perrea ANSWERING SERVICE AGENTOttoniel SMITH
[2023-09-18 14:35] LABS: Anion Gap 4 (5-15); BUN 37 mg/dL (7-18); BUN/Creat Ratio 12.5 RATIO (10-20); Calcium,Total 8.6 mg/dL (8.5-10.1); Chloride 113 mmol/L (98-107); Creatinine, Serum 2.97 mg/dL (0.70-1.30); EST Glomerular Filtration Rate 21 mL/min (>60); Est Glom Filt Rate - Afr Amer 26 mL/min (>60); Estimated Creatinine Clearance 15.22 ml/min; Glucose 151 mg/dL (74-106); Potassium 4.2 mmol/L (3.5-5.1); Sodium Level 141 mmol/L (136-145)
--- NOTE | 2023-09-18 14:48 | CASEMGMT ---
DARREN [facility] Cov[facility] [place] [facility] Christine Perera MOLDED CANDLES WICKER SARAH
[2023-09-18 15:00] VITALS: BP 124/60; PULSE 72; RESP 16; TEMP 36.3; O2SAT 99
== END 2023-09-18 15:04 | disposition skilled nursing facility (03) | DRG 682 ==
LOC: ED 16:29 → PCU 16:39
PROVIDERS: Admitting Provider Internal Medicine; Emergency Provider Emergency Medicine; PCP Family Medicine; Visit Provider Internal Medicine
DX: N17.9 Acute kidney failure, unspecified (principal); G93.41 Metabolic encephalopathy; N30.00 Acute cystitis without hematuria; E11.22 Type 2 diabetes mellitus with diabetic chronic kidney disease; E03.9 Hypothyroidism, unspecified; E78.00 Pure hypercholesterolemia, unspecified; B95.2 Enterococcus as the cause of diseases classified elsewhere; F03.90 Unspecified dementia, unspecified severity, without behavioral disturbance, psychotic disturbance, mood disturbance, and anxiety; N18.4 Chronic kidney disease, stage 4 (severe); Z79.4 Long term (current) use of insulin; I12.9 Hypertensive chronic kidney disease with stage 1 through stage 4 chronic kidney disease, or unspecified chronic kidney disease; E86.0 Dehydration; M15.9 Polyosteoarthritis, unspecified; I25.10 Atherosclerotic heart disease of native coronary artery without angina pectoris; M10.9 Gout, unspecified; Z66 Do not resuscitate; R53.81 Other malaise; Z95.5 Presence of coronary angioplasty implant and graft; Z79.82 Long term (current) use of aspirin; Z79.890 Hormone replacement therapy; Z79.899 Other long term (current) drug therapy
CPT/HCPCS: 36415; 70450; 70496; 70498; 71045; 74176; 80048; 80076; 81001; 82962; 83605; 83735; 84100; 84484; 85025; 85610; 85730; 87040; 87077; 87086; 87088; 87186; 87426; 87631; 92610; 93005; 97162; 97166; 97530; 97535; 99285; J7030; J7040; Q9967; A4216; J2405

== ENCOUNTER → 2023-10-11 | Outpatient (CLI) | payer MEDICARE, SELFPAY ==
[2023-10-11 15:47] LABS: Bacteria 0 SEEN /hpf (None Seen); Mucous, Urine 0 SEEN /hpf (<or=2+); Squamous Epithelial Cells - UA 0 SEEN /hpf (0-5); White Blood Cells 0 SEEN /hpf (0-5)
[2023-10-11 16:09] LABS: Color, Urine Yellow (Yellow); Glucose, Dipstick 100 mg/dl (Normal); Ketone-Dipstick Negative (Negative); Leukocyte Esterase-Dipstick Negative /ul (Negative); Nitrite-Dipstick Negative (Negative); Occult Blood-Urine 10 /ul (Negative); Protein-Dipstick 500 mg/dl (Negative); Urine Bilirubin Dipstick Negative (Negative); Urine Clarity Clear (Clear); Urine Urobilinogen Normal (Normal)
[2023-10-11 16:27] LABS: Red Blood Cells-Urine 0-5 SEEN /hpf (0-5)
== END | disposition home or self-care (01) ==
PROVIDERS: PCP Family Medicine; Referring Provider Physician Assistant Surgical; Visit Provider Physician Assistant Surgical
DX: R30.0 Dysuria (principal)
CPT/HCPCS: 81001; 87086

== ENCOUNTER → 2023-11-07 | Outpatient (CLI) | payer MEDICARE, SELFPAY ==
--- NOTE | 2023-11-07 17:20 | RAD_ITS ---
INDICATION: PAIN EXAMINATION/TECHNIQUE: X-RAY - XR Ribs 8 Views W/ PA Chest Bilateral COMPARISON: September 15, 2023 FINDINGS: LINES/DEVICES: None. LUNGS: No consolidation, edema or effusion. No pneumothorax. MEDIASTINUM AND CARDIOVASCULAR STRUCTURES: Cardiac silhouette not enlarged. Central airways and mediastinal contour are unremarkable. RIBS AND OSSEOUS STRUCTURES: Unremarkable. No evidence of displaced rib fractures. RAD/Ribs Asael Min 4V w/PA Chest IMPRESSION: Within normal limits chest and ribs series. Electronically Signed: Fanny Kwon MD at 9:28 EDT ,
== END | disposition home or self-care (01) ==
PROVIDERS: PCP Family Medicine; Referring Provider Family Medicine; Visit Provider Family Medicine
DX: R07.81 Pleurodynia (principal)
CPT/HCPCS: 71111

== ENCOUNTER 2023-11-29 00:09 | Emergency (ER) | payer MEDICARE, SELFPAY ==
[2023-11-29 00:10] VITALS: BP 141/73; PULSE 66; RESP 16; TEMP 36.2; O2SAT 98; BMI 24.0
--- NOTE | 2023-11-29 01:37 | RAD_ITS ---
INDICATION: COUGH EXAMINATION/TECHNIQUE: X-RAY - XR Chest 1 View AP portable. 1:50 AM COMPARISON: 11/07/2023 FINDINGS: LINES/DEVICES: None. LUNGS: No consolidation. No pneumothorax. MEDIASTINUM: Unremarkable. CARDIAC SILHOUETTE: Not enlarged. BONES AND SOFT TISSUES: No acute abnormalities. RAD/Chest 1 View (Portable) IMPRESSION: No evidence of active intrathoracic disease. Electronically Signed: Lidia Blum MD at 2:51 EDT ,
--- NOTE | 2023-11-29 01:37 | CT_ITS ---
INDICATION: head injury EXAMINATION: CT BRAIN - CT Head or Brain W/O Contrast Injection TECHNIQUE: Multiple axial images were obtained of the head without intravenous contrast. The protocol utilizes one or more of the following dose reduction techniques: automated exposure control, adjustment of mA and/or kV according to patient size,and/or use of iterative reconstruction technique. IV Contrast dosage and agent: None. RADIATION DOSAGE (If Supplied By Facility): CTDIvol = ( 44.99 ) mGy, DLP = ( 745.49 ) mGycm COMPARISON: Report of CT head 09/15/2023, images are not available FINDINGS: BRAIN: No acute bleed. No edema. Encephalomalacia left frontal and parietal regions consistent with old infarcts. Decreased attenuation in the periventricular white matter bilaterally. Ibarra-white matter differentiation is maintained. Arterial calcifications. VENTRICLES AND SULCI: The ventricles are not dilated. The sulci are prominent.. EXTRA-AXIAL: No hemorrhage, fluid collection, or mass. CALVARIUM / SKULL BASE: Unremarkable. FACE/SINUSES: Unremarkable. SOFT TISSUES: Unremarkable. CT/Brain/Head without Contrast IMPRESSION: No acute abnormality. 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 Electronically Signed: Lidia Blum MD at 3:32 EDT ,
[2023-11-29 02:10] VITALS: BP 133/87; PULSE 61; RESP 15; O2SAT 92
[2023-11-29] MEDS: 0.9% Normal Saline (500mL Bag) 500 ML 999 ML IV (02:18)
[2023-11-29] MEDS: LORazepam 2 MG/ML Syringe 0.5 MG IV (02:19)
[2023-11-29 02:27] LABS: Absolute Lymphocyte Count 1.25 X10^3/uL (0.83-4.51); Absolute Neutrophil Count 3.3 X10^3/uL (2.0-7.7); Basophil# 0.02 X10^3/uL; Basophil% 0.3 % (0-1); Eosinophil# 0.08 X10^3/uL; Eosinophils% 1.3 % (0-5); Hematocrit 36.7 % (40-54); Hemoglobin 11.6 g/dL (13.0-16.5); Lymphocyte # 1.25 X10^3/ul (0.83-4.51); Lymphocyte % 20.5 % (19-41); Mean Corp Hgb Conc 31.6 g/dL (32-36); Mean Corpuscular Hgb 30.7 pg (27.0-32.0); Mean Corpuscular Volume 97.1 fL (80-94); Mean Platelet Vol. 12.2 fl (6.2-12.0); Monocyte# 1.35 X10^3/uL; Monocyte% 22.2 % (0-10); NRBC Flagged by Analyzer 0 % (0-5); Neutrophil # 3.31 X10^3/uL (2.7-7.7); Neutrophil % 54.4 % (47-70); Platelet Count 105 K/mm3 (150-450); RBC Distribution Width CV 14.6 % (11.6-14.6); RBC Distribution Width SD 51.8 fl (35.1-43.9); Red Blood Count 3.78 M/mm3 (4.6-6.2); White Blood Count 6.1 K/mm3 (4.4-11.0)
[2023-11-29 02:55] LABS: Anion Gap 8 (5-15); BUN 48 mg/dL (7-18); Calcium,Total 9.2 mg/dL (8.5-10.1); Chloride 111 mmol/L (98-107); Creatinine, Serum 2.83 mg/dL (0.70-1.30); EST Glomerular Filtration Rate 23 mL/min (>60); Est Glom Filt Rate - Afr Amer 27 mL/min (>60); Estimated Creatinine Clearance 16.54 ml/min; Glucose 137 mg/dL (74-106); Magnesium 2.2 mg/dL (1.6-2.6); Potassium 4.7 mmol/L (3.5-5.1); Sodium Level 140 mmol/L (136-145)
[2023-11-29 03:39] LABS: Bacteria 0 SEEN /hpf (None Seen); Mucous, Urine 0 SEEN /hpf (<or=2+); Red Blood Cells-Urine 0 SEEN /hpf (0-5); Squamous Epithelial Cells - UA 0 SEEN /hpf (0-5); White Blood Cells 0 SEEN /hpf (0-5)
[2023-11-29 03:40] LABS: Color, Urine Yellow (Yellow); Glucose, Dipstick Normal (Normal); Ketone-Dipstick Negative (Negative); Leukocyte Esterase-Dipstick Negative /ul (Negative); Nitrite-Dipstick Negative (Negative); Occult Blood-Urine 10 /ul (Negative); Protein-Dipstick 100 mg/dl (Negative); Urine Bilirubin Dipstick Negative (Negative); Urine Clarity Clear (Clear); Urine Urobilinogen Normal (Normal); Urine pH 6.5 (5.0 - 8.0)
--- NOTE | 2023-11-29 04:23 | EDS_ITS ---
HPI History of Present Illness Chief Complaint: Other, Pain/Inj Informant: patient and spouse/S.O. Narrative Narrative: Patient is an 88-year-old male who lives at home with his . He has a past medical history of hypertension chronic kidney disease insulin-dependent type 2 diabetes and dementia. and patient deny any new exposures or medications but states that this evening he has been having whole body tremors. Patient and state they have not stopped and they do not know why they have occurred in the first place and secondary to this they present to the ER for evaluation [facility] Medical History Ambulates with cane Chronic kidney disease Chronic renal insufficiency Coronary atherosclerosis of [place] coronary artery Cricopharyngeal dysphagia Dementia Essential hypertension Gastric reflux Glucosuria Gout History of diabetes mellitus History of hypertension Hyperlipidemia Hypertension Hypothyroidism Polymyalgia rheumatica PONV (postoperative nausea and vomiting) Presence of stent in coronary artery (~10/31/10) Pure hypercholesterolemia Seizures Sleep apnea Thyroid disease Type II diabetes mellitus Walker as ambulation aid Wears glasses Home Medications ?Medication ?Instructions ?Recorded ?Last Taken ?Type nitroglycerin 0.4 mg sublingual 0.4 mg sublingual Q5M PRN Chest 11/06/18 Unknown Rx tablet Pain #25 tabs acetaminophen 500 mg tablet 500 mg PO Q6H PRN Pain 04/12/22 06/14/22 19:30 History levothyroxine 100 mcg tablet 100 mcg PO DAILY THYROID 04/12/22 06/14/22 History metoprolol succinate 50 mg See Rx Instructions .Route 10/30/22 Unknown Rx tablet,extended release 24 hr .COMPLEX #90 TABLETS aspirin 81 mg chewable tablet 81 mg PO BREAKFAST #0 tabs 03/08/23 Unknown Rx allopurinol 300 mg tablet 300 mg PO QDAY 09/14/23 Unknown History donepezil 10 mg tablet 10 mg PO 09/15/23 Unknown History amoxicillin 250 mg capsule 250 mg PO Q8 #1 cap 09/18/23 Unknown Rx insulin glargine-yfgn 100 unit/mL 15 unit (0.15 mL) subcut QHS #0 mL 09/18/23 Unknown Rx (3 mL) subcutaneous pen lorazepam 0.5 mg tablet (Ativan) 0.5 mg PO TID PRN tremor(s) 5 days 11/29/23 Unknown Rx #15 tabs Allergy/AdvReac Type Severity Reaction Status Date / Time clopidogrel bisulfate (From Allergy Rash Verified 11/29/23 00:11 Plavix) cyclobenzaprine Allergy Rash Verified 11/29/23 00:11 (Cyclobenzaprine) fluoxetine HCl (From Prozac) Allergy Rash Verified 11/29/23 00:11 Family History Father Diabetes Mother Diabetes Surgical History H/O percutaneous transluminal coronary angioplasty History of back surgery History of cholecystectomy History of esophageal dilatation (~07/2021) Presence of coronary angioplasty implant and graft (~10/31/10) toenail removed Social History household members: spouse housing: house other: Typically ambulates with a cane however most recently with a walker seconda Smoking Status: Never smoker alcohol intake: never substance use type: does not use caffeine: Yes Type: tea Number of servings: 1 what type of physical activity do you participate in: none ROS ROS ED ROS Narrative Please note review of systems may be unreliable as patient has a history of dementia Constitutional Constitutional ED: Denies chills or fever(s) ENT ENT ED: Denies sore throat Cardiovascular Cardiovascular: Denies chest pain Respiratory/Chest Respiratory/Chest: Denies cough or dyspnea Gastrointestinal Gastrointestinal: Reports diarrhea and nausea; Denies abdominal pain or vomiting Genitourinary Genitourinary ED: Denies dysuria Musculoskeletal Musculoskeletal: Reports myalgias Integumentary Denies rash Neurologic Neurologic: Reports other Details: Positive tremors ; Denies headache(s) Hematologic/Lymphatic Hematologic/Lymphatic: Denies easy bleeding or easy bruising EXAM Physical Exam Const Vital Signs: 11/29/23 00:10 11/29/23 00:10 11/29/23 02:10 Temperature 97.1 F L Temperature Source Temporal Pulse Rate 66 61 Respiratory Rate 16 15 Respiratory Effort Normal Non-Labored Respiratory Pattern Normal Blood Pressure 141/73 H 133/87 H Blood Pressure Mean 95 102 Pulse Ox 98 92 Oxygen Delivery Method Room Air Room Air Positive well nourished and well developed General Appearance ED: well developed; Negative for pallor HEENT Reports moist mucous membranes HEENT Narrative: No tongue or cheek biting noted to suggest seizure activity No airway edema or compromise No secondary changes to the posterior pharynx to suggest infection Eyes PERRL and EOMs intact bilaterally General Eye ED: Negative for scleral icterus Neck supple Neck Narrative: No nuchal rigidity or meningeal signs Resp normal respiratory effort and clear to auscultation bilaterally Resp Narrative: Breath sounds are diminished but overall clear to auscultation without signs of respiratory distress Cardio regular rate and regular rhythm GI non-tender and non-distended GI Narrative: Abdomen is soft nontender nondistended with hyperactive bowel sounds there is no voluntary guarding or rigidity or pulsatile mass Auscultation: hyperactive bowel sounds Palpation: soft Extremity normal to inspection Extremity Narrative: No bony deformity or joint effusion noted Neuro CN's II-XII intact bilaterally Neuro Narrative: Patient is at his baseline mental status. There is no focal neurologic deficit noted He will occasionally have tremor/spasm many of his neck and face most consistent with akathisia or tardive dyskinesia. No seizure activity witnessed Sensorium / Orientation: alert Psych mental status grossly normal Skin no rashes or lesions noted and no wounds General Skin Exam: Negative for jaundice or pallor MDM MDM MDM Narrative Medical decision making narrative: Patient reported tremors that he does not have at baseline and he denied any new medication which could have led to them. He did report some loose stool and there is concern that he potentially could have a infection such as gastroenteritis leading to the tremors which could have led to acute on chronic kidney injury and electrolyte abnormality. Secondary to his basic labs were obtained which revealed no clinically significant findings. The patient's creatinine is elevated at 2.8 but chart review reveals this is near his baseline. He does not have any clinically significant electrolyte disturbance such as hyponatremia hyper or hypokalemia or hypomagnesemia. The patient was given Ativan and had resolution of his tremors. At this time I feel his symptoms are most likely related to his increasing age with development of benign essential tremors as he has no new medication on board which could lead to the symptoms. As there is no true electrolyte abnormality disturbance to replace and his kidney function is at baseline there is no need for admission and can be discharged home and follow-up with his family doctor on an outpatient basis History & Record Review Discussion w/independent historian: Patient and Significant other Lab Data Attestation: I reviewed the patient's lab results. Labs: Laboratory Results - last 24 hr 11/29/23 11/29/23 02:15 03:30 WBC 6.1 RBC 3.78 L Hgb 11.6 L Hct 36.7 L MCV 97.1 H MCH 30.7 MCHC 31.6 L RDW Std Deviation 51.8 H RDW Coeff of Sea 14.6 Plt Count 105 L MPV 12.2 H Immature Gran % (Auto) 1.300 H Neut % (Auto) 54.4 Lymph % (Auto) 20.5 [place] % (Auto) 22.2 H Eos % (Auto) 1.3 Baso % (Auto) 0.3 Absolute Neuts (auto) 3.3 Absolute Lymphs (auto) 1.25 Nucleated RBC % 0 Sodium 140 Potassium 4.7 Chloride 111 H Carbon Dioxide 21.0 Anion Gap 8 BUN 48 H Creatinine 2.83 H Estim Creat Clear Calc 16.54 Est GFR (MDRD) Af Amer 27 L Est GFR (MDRD) Non-Af 23 L BUN/Creatinine Ratio 17.0 Glucose 137 H Calcium 9.2 Magnesium 2.2 Urine Color Yellow Urine Clarity Clear Urine pH 6.5 Ur Specific [place] 1.010 Urine Protein 100 H Urine Glucose (UA) Normal Urine Ketones Negative Urine Occult Blood 10 H Urine Nitrite Negative Urine Bilirubin Negative Urine Urobilinogen Normal Ur Leukocyte Esterase Negative Urine RBC 0 SEEN Urine WBC 0 SEEN Ur Squamous Epith Cells 0 SEEN Urine Bacteria 0 SEEN Urine Mucus 0 SEEN Radiography Diagnostic Testing: Clinical Impression(s) from Imaging Studies Brain CT 11/29/23 01:37 IMPRESSION: No acute abnormality. 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 Electronically Signed: Lidia Blum MD at 3:32 EDT , Chest X-Ray 11/29/23 01:37 IMPRESSION: No evidence of active intrathoracic disease. Electronically Signed: Lidia Blum MD at 2:51 EDT , Chest x-ray as interpreted by the emergency medicine physician reveals no acute infiltrate pneumothorax or pleural effusion Discharge Plan Triage Chief Complaint: Other, Pain/Inj ED Provider: Sergey Mock Dx/Rx/DC Orders Clinical Impression: Coarse tremors, Chronic kidney disease, Essential hypertension, Insulin dependent diabetes mellitus Instructions: Essential Tremor (ET) Prescriptions: New lorazepam [Ativan] 0.5 mg tablet 0.5 mg PO TID PRN (Reason: tremor(s)) 5 Days Qty: 15 0RF No Action nitroglycerin 0.4 mg tablet, sublingual 0.4 mg SUBLINGUAL Q5M PRN (Reason: Chest Pain) Qty: 25 3RF allopurinol 300 mg tablet 300 mg PO QDAY acetaminophen 500 mg Tablet 500 mg PO Q6H PRN (Reason: Pain) levothyroxine 100 mcg tablet 100 mcg PO DAILY Patient Comments: TAKE 1 TABLET BY MOUTH ONCE DAILY aspirin 81 mg Tablet,Chewable 81 mg PO BREAKFAST Qty: 0 0RF donepezil 10 mg tablet 10 mg PO insulin glargine-yfgn 100 unit/mL (3 mL) Insulin Pen 15 unit subcut QHS Qty: 0 0RF amoxicillin 250 mg Capsule 250 mg PO Q8 Qty: 1 0RF Rx Instructions: Give a total of 17 doses then discontinue medication metoprolol succinate 50 mg tablet extended release 24 hr See Rx Instructions .ROUTE .COMPLEX Qty: 90 3RF Dose Instruction: TAKE 1 TABLET BY MOUTH ONCE DAILY FOR THE HEART. Rx Instructions: TAKE 1 TABLET BY MOUTH ONCE DAILY FOR THE HEART. Primary Care Provider: Mike Salas Referrals: Mike Salas MD [Primary Care Provider] - Activity Restrictions/Additional Instructions: Please follow-up with your family doctor to discuss further testing or potential neurology referral secondary to your tremors. Return to the ER should you have any further concerns Print Language: Belarusian Disposition Disposition: Home, Self Care Discharge Date/Time: 11/29/23 04:56
[2023-11-29 04:52] VITALS: BP 131/58; PULSE 64; RESP 16; TEMP 37.1; O2SAT 98
== END 2023-11-29 04:56 | disposition home or self-care (01) ==
PROVIDERS: Emergency Provider Emergency Medicine; PCP Family Medicine; Visit Provider Emergency Medicine
DX: R25.1 Tremor, unspecified (principal); E11.22 Type 2 diabetes mellitus with diabetic chronic kidney disease; Z79.4 Long term (current) use of insulin; I12.9 Hypertensive chronic kidney disease with stage 1 through stage 4 chronic kidney disease, or unspecified chronic kidney disease; N18.9 Chronic kidney disease, unspecified; I25.10 Atherosclerotic heart disease of native coronary artery without angina pectoris; E78.00 Pure hypercholesterolemia, unspecified; E03.9 Hypothyroidism, unspecified; Z79.82 Long term (current) use of aspirin; Z79.890 Hormone replacement therapy; Z79.899 Other long term (current) drug therapy; Z95.5 Presence of coronary angioplasty implant and graft
CPT/HCPCS: 70450; 71045; 80048; 81001; 83735; 85025; 96361; 96374; 99282; A4216

== ENCOUNTER 2023-12-17 07:39 | Emergency (ER) | payer MEDICARE, SELFPAY ==
[2023-12-17 07:40] VITALS: BP 146/60; PULSE 86; RESP 16; TEMP 36.5; O2SAT 99; BMI 23.6
[2023-12-17 08:04] VITALS: BP 124/75; PULSE 85; RESP 16; O2SAT 98
--- NOTE | 2023-12-17 08:04 | EX.ED.DYSGE1 ---
HPI History of Present Illness Chief Complaint: General Illness Narrative Narrative: 88-year-old male past medical history of tremors, recently put on Ativan because of his tremoring, presents via EMS with his because of confusion and hallucinations. His relates history as his history and physical is mildly limited secondary to dementia, that they were seen in the emergency department, and patient was given Ativan for his tremors. They followed up with Dr. Salas the following day who agreed that he could take Ativan as needed for his tremors. On Sunday, 2 days ago, relates history that he had continuous tremoring, so he was given a total of 3 Ativan tablets. She also gave him Tylenol as well. She is concerned because he has had more confusion. He was talking to his son who was not there, and additionally, he got up and was walking around without his walker. She is concerned because she states that he is urinating more frequently. She thinks he might have a UTI. She called EMS because of the increased confusion over the last 1 to 2 days. [facility] Medical History Acute confusion Chronic renal insufficiency History of diabetes mellitus History of hypertension Dementia Polymyalgia rheumatica Cricopharyngeal dysphagia Wears glasses Thyroid disease Walker as ambulation aid Ambulates with cane Gout Seizures Gastric reflux Sleep apnea Hypertension PONV (postoperative nausea and vomiting) Glucosuria Pure hypercholesterolemia Presence of stent in coronary artery (~10/31/10) Hypothyroidism Essential hypertension Hyperlipidemia Type II diabetes mellitus Coronary atherosclerosis of [place] coronary artery Chronic kidney disease Home Medications ?Medication ?Instructions ?Recorded ?Last Taken ?Type nitroglycerin 0.4 mg sublingual 0.4 mg sublingual Q5M PRN Chest 11/06/18 Unknown Rx tablet Pain #25 tabs acetaminophen 500 mg tablet 500 mg PO Q6H PRN Pain 04/12/22 06/14/22 19:30 History levothyroxine 100 mcg tablet 100 mcg PO DAILY THYROID 04/12/22 06/14/22 History metoprolol succinate 50 mg See Rx Instructions .Route 10/30/22 Unknown Rx tablet,extended release 24 hr .COMPLEX #90 TABLETS aspirin 81 mg chewable tablet 81 mg PO BREAKFAST #0 tabs 03/08/23 Unknown Rx allopurinol 300 mg tablet 300 mg PO QDAY 09/14/23 Unknown History donepezil 10 mg tablet 10 mg PO 09/15/23 Unknown History amoxicillin 250 mg capsule 250 mg PO Q8 #1 cap 09/18/23 Unknown Rx insulin glargine-yfgn 100 unit/mL 15 unit (0.15 mL) subcut QHS #0 mL 09/18/23 Unknown Rx (3 mL) subcutaneous pen lorazepam 0.5 mg tablet (Ativan) 0.5 mg PO TID PRN tremor(s) 5 days 11/29/23 Unknown Rx #15 tabs insulin lispro 100 unit/mL subcut 12/17/23 Unknown History subcutaneous pen (Humalog KwikPen (U-100) Insulin) Allergy/AdvReac Type Severity Reaction Status Date / Time clopidogrel bisulfate (From Allergy Rash Verified 11/29/23 00:11 Plavix) cyclobenzaprine Allergy Rash Verified 11/29/23 00:11 (Cyclobenzaprine) fluoxetine HCl (From Prozac) Allergy Rash Verified 11/29/23 00:11 Family History Father Diabetes Mother Diabetes Surgical History History of esophageal dilatation (~07/2021) Presence of coronary angioplasty implant and graft (~10/31/10) History of back surgery History of cholecystectomy toenail removed H/O percutaneous transluminal coronary angioplasty Social History household members: spouse housing: house other: Typically ambulates with a cane however most recently with a walker seconda Smoking Status: Never smoker alcohol intake: never substance use type: does not use caffeine: Yes Type: tea Number of servings: 1 what type of physical activity do you participate in: none ROS ROS ED ROS Narrative Review of system limited secondary to dementia. Obtained mainly from . Patient without complaints, denies any fever or chills, no nausea or vomiting. endorses positive confusion and urinary frequency. EXAM Physical Exam Narrative Exam Narrative: Afebrile. Vital signs noted. HEENT: Normocephalic. Atraumatic. PERRL, EOMI. Neck soft and supple. No point tenderness or step off. Cardiovascular: Regular rate and rhythm. No murmurs, rubs, or gallops appreciated. Respiratory: No tachypnea. Lungs clear to auscultation bilaterally. Gastrointestinal: Abdomen soft, nontender, with normoactive bowel sounds. No rebound or guarding. Neurological: Awake. Alert. Nonfocal, nonlateralizing. Skin: No rash. Normal color. No pallor. Musculoskeletal: No pedal edema. Full range of motion extremities. Const Vital Signs: 12/17/23 07:40 12/17/23 07:49 12/17/23 08:04 Temperature 97.7 F L Temperature Source Oral Pulse Rate 86 85 Respiratory Rate 16 16 Respiratory Effort Normal Non-Labored Respiratory Pattern Normal Blood Pressure 146/60 H 124/75 H Blood Pressure Mean 88 91 Pulse Ox 99 98 Oxygen Delivery Method Room Air Room Air MDM MDM MDM Narrative Medical decision making narrative: I reviewed his prior records. I do feel that in the differential, that his reported confusion may have been from the Ativan use. Additionally in the differential is UTI versus electrolyte imbalance/dehydration. He does have previous chronic kidney disease. I reviewed his previous laboratory work and that of today. He has normal white count of 5.3 with hemoglobin stable at 11.0, platelet count stable at 101. While this is a chronic thrombocytopenia, I do not feel that he requires platelet transfusion currently. Electrolyte panel shows chloride slightly elevated at 112 which I think is nonspecific, BUN of 43 and creatinine 2.54, which is around his baseline and his creatinine has been a little bit higher in the past when compared to previous laboratory work. Glucose is elevated appropriately at 122, with an anion gap low at 3 so I doubt diabetic ketoacidosis. On review of urinalysis, it is negative for infection, I do not feel that antibiotics are indicated. Additionally, it is negative for ketones so I doubt dehydration. At this point in time, upon repeat examination, at 9:35 AM, he is resting comfortably, awake, and alert. He was able to pass a p.o. challenge. His is comfortable taking him home. I do not feel he requires observation or admission at this time, and I do not feel that he requires placement in [facility] as his is comfortable taking him home in her vehicle and she feels that he is more towards his baseline. I do feel that his reported confusion was probably from benzodiazepine use. He will follow-up with his primary care provider. Return instructions to the emergency department were reviewed. Disposition is discharged home in stable condition. History & Record Review Discussion w/independent historian: Patient and Family (Spouse) Additional record(s) reviewed:: Prior ED visit and Prior labs Lab Data Attestation: I reviewed the patient's lab results. Labs: Laboratory Results - last 24 hr 12/17/23 12/17/23 08:35 08:45 WBC 5.3 RBC 3.57 L Hgb 11.0 L Hct 33.8 L MCV 94.7 H MCH 30.8 MCHC 32.5 RDW Std Deviation 51.1 H RDW Coeff of Sea 14.6 Plt Count 101 L MPV 11.3 Immature Gran % (Auto) 1.700 H Neut % (Auto) 53.8 Lymph % (Auto) 21.3 [place] % (Auto) 20.9 H Eos % (Auto) 1.9 Baso % (Auto) 0.4 Absolute Neuts (auto) 2.9 Absolute Lymphs (auto) 1.13 Nucleated RBC % 0 Sodium 141 Potassium 4.9 Chloride 112 H Carbon Dioxide 26.0 Anion Gap 3 L BUN 43 H Creatinine 2.54 H Estim Creat Clear Calc 19.07 Est GFR (MDRD) Af Amer 31 L Est GFR (MDRD) Non-Af 26 L BUN/Creatinine Ratio 16.9 Glucose 122 H Calcium 8.7 Total Bilirubin 0.50 AST 20 ALT 16 Alkaline Phosphatase 81 Total Protein 7.0 Albumin 3.3 Globulin 3.7 Albumin/Globulin Ratio 0.9 Urine Color Yellow Urine Clarity Clear Urine pH 6.0 Ur Specific [place] 1.010 Urine Protein 100 H Urine Glucose (UA) Normal Urine Ketones Negative Urine Occult Blood 10 H Urine Nitrite Negative Urine Bilirubin Negative Urine Urobilinogen Normal Ur Leukocyte Esterase Negative Urine RBC 0-5 SEEN Urine WBC 0 SEEN Ur Squamous Epith Cells 0-5 SEEN Urine Bacteria 0 SEEN Urine Mucus 0 SEEN Discharge Plan Triage Chief Complaint: General Illness ED Provider: Freddie Barkley Dx/Rx/DC Orders Clinical Impression: Confusion, Chronic kidney disease Instructions: ED Chronic Kidney Disease (CKD), ED Confusion Prescriptions: No Action nitroglycerin 0.4 mg tablet, sublingual 0.4 mg SUBLINGUAL Q5M PRN (Reason: Chest Pain) Qty: 25 3RF allopurinol 300 mg tablet 300 mg PO QDAY acetaminophen 500 mg Tablet 500 mg PO Q6H PRN (Reason: Pain) levothyroxine 100 mcg tablet 100 mcg PO DAILY Patient Comments: TAKE 1 TABLET BY MOUTH ONCE DAILY aspirin 81 mg Tablet,Chewable 81 mg PO BREAKFAST Qty: 0 0RF donepezil 10 mg tablet 10 mg PO insulin glargine-yfgn 100 unit/mL (3 mL) Insulin Pen 15 unit subcut QHS Qty: 0 0RF amoxicillin 250 mg Capsule 250 mg PO Q8 Qty: 1 0RF Rx Instructions: Give a total of 17 doses then discontinue medication lorazepam [Ativan] 0.5 mg tablet 0.5 mg PO TID PRN (Reason: tremor(s)) 5 Days Qty: 15 0RF insulin lispro [Humalog KwikPen Insulin] 100 unit/mL insulin pen subcut metoprolol succinate 50 mg tablet extended release 24 hr See Rx Instructions .ROUTE .COMPLEX Qty: 90 3RF Dose Instruction: TAKE 1 TABLET BY MOUTH ONCE DAILY FOR THE HEART. Rx Instructions: TAKE 1 TABLET BY MOUTH ONCE DAILY FOR THE HEART. Primary Care Provider: Mike Salas Referrals: Mike Salas MD [Primary Care Provider] - 1-2 Days if not improving Activity Restrictions/Additional Instructions: Refrain from frequent Ativan/benzodiazepine use. Print Language: [place] Rican Disposition Disposition: Home, Self Care
[2023-12-17] MEDS: 0.9% Normal Saline (1000mL) 1,000 ML 1000 ML IV (08:32)
[2023-12-17 08:42] LABS: Absolute Lymphocyte Count 1.13 X10^3/uL (0.83-4.51); Absolute Neutrophil Count 2.9 X10^3/uL (2.0-7.7); Basophil# 0.02 X10^3/uL; Basophil% 0.4 % (0-1); Eosinophils% 1.9 % (0-5); Hematocrit 33.8 % (40-54); Lymphocyte # 1.13 X10^3/ul (0.83-4.51); Lymphocyte % 21.3 % (19-41); Mean Corp Hgb Conc 32.5 g/dL (32-36); Mean Corpuscular Hgb 30.8 pg (27.0-32.0); Mean Corpuscular Volume 94.7 fL (80-94); Mean Platelet Vol. 11.3 fl (6.2-12.0); Monocyte# 1.11 X10^3/uL; Monocyte% 20.9 % (0-10); NRBC Flagged by Analyzer 0 % (0-5); Neutrophil # 2.85 X10^3/uL (2.7-7.7); Neutrophil % 53.8 % (47-70); Platelet Count 101 K/mm3 (150-450); RBC Distribution Width CV 14.6 % (11.6-14.6); RBC Distribution Width SD 51.1 fl (35.1-43.9); Red Blood Count 3.57 M/mm3 (4.6-6.2); White Blood Count 5.3 K/mm3 (4.4-11.0)
[2023-12-17 08:50] LABS: Bacteria 0 SEEN /hpf (None Seen); Mucous, Urine 0 SEEN /hpf (<or=2+); White Blood Cells 0 SEEN /hpf (0-5)
[2023-12-17 08:57] LABS: Color, Urine Yellow (Yellow); Glucose, Dipstick Normal (Normal); Ketone-Dipstick Negative (Negative); Leukocyte Esterase-Dipstick Negative /ul (Negative); Nitrite-Dipstick Negative (Negative); Occult Blood-Urine 10 /ul (Negative); Protein-Dipstick 100 mg/dl (Negative); Urine Bilirubin Dipstick Negative (Negative); Urine Clarity Clear (Clear); Urine Urobilinogen Normal (Normal)
[2023-12-17 08:59] LABS: ALB/GLOB Ratio 0.9 RATIO (0.9-2.4); AST(SGOT) 20 U/L (15-37); Alanine Aminotransfer ALT/SGPT 16 U/L (16-61); Albumin, Serum 3.3 g/dL (3.2-5.0); Alkaline Phosphatase 81 U/L (45-117); Anion Gap 3 (5-15); BUN 43 mg/dL (7-18); BUN/Creat Ratio 16.9 RATIO (10-20); Calcium,Total 8.7 mg/dL (8.5-10.1); Chloride 112 mmol/L (98-107); Creatinine, Serum 2.54 mg/dL (0.70-1.30); EST Glomerular Filtration Rate 26 mL/min (>60); Est Glom Filt Rate - Afr Amer 31 mL/min (>60); Estimated Creatinine Clearance 19.07 ml/min; Globulin 3.7 g/dL (2.2-4.2); Glucose 122 mg/dL (74-106); Potassium 4.9 mmol/L (3.5-5.1); Sodium Level 141 mmol/L (136-145)
[2023-12-17 09:08] LABS: Red Blood Cells-Urine 0-5 SEEN /hpf (0-5); Squamous Epithelial Cells - UA 0-5 SEEN /hpf (0-5)
[2023-12-17 09:49] VITALS: BP 153/81; PULSE 85; RESP 18; TEMP 36.7; O2SAT 98
== END 2023-12-17 09:50 | disposition home or self-care (01) ==
PROVIDERS: Emergency Provider Emergency Medicine; PCP Family Medicine; Visit Provider Emergency Medicine
DX: R41.0 Disorientation, unspecified (principal); F03.90 Unspecified dementia, unspecified severity, without behavioral disturbance, psychotic disturbance, mood disturbance, and anxiety; E11.22 Type 2 diabetes mellitus with diabetic chronic kidney disease; E11.65 Type 2 diabetes mellitus with hyperglycemia; Z79.4 Long term (current) use of insulin; I12.9 Hypertensive chronic kidney disease with stage 1 through stage 4 chronic kidney disease, or unspecified chronic kidney disease; I25.10 Atherosclerotic heart disease of native coronary artery without angina pectoris; R44.3 Hallucinations, unspecified; N18.9 Chronic kidney disease, unspecified; E78.00 Pure hypercholesterolemia, unspecified; R25.1 Tremor, unspecified; M35.3 Polymyalgia rheumatica; E03.9 Hypothyroidism, unspecified; R35.0 Frequency of micturition; Z95.5 Presence of coronary angioplasty implant and graft; Z79.82 Long term (current) use of aspirin; Z79.890 Hormone replacement therapy; Z79.899 Other long term (current) drug therapy; Z95.1 Presence of aortocoronary bypass graft
CPT/HCPCS: 80053; 81001; 85025; 96360; 99282; J7030; A4216

== ENCOUNTER → 2024-02-15 | Outpatient (CLI) | payer MEDICARE, SELFPAY ==
[2024-02-15 17:53] LABS: Absolute Lymphocyte Count 0.92 X10^3/uL (0.83-4.51); Absolute Neutrophil Count 3.1 X10^3/uL (2.0-7.7); Basophil# 0.01 X10^3/uL; Basophil% 0.2 % (0-1); Eosinophil# 0.05 X10^3/uL; Hemoglobin 11.7 g/dL (13.0-16.5); Lymphocyte # 0.92 X10^3/ul (0.83-4.51); Lymphocyte % 17.9 % (19-41); Mean Corp Hgb Conc 31.6 g/dL (32-36); Mean Corpuscular Hgb 30.7 pg (27.0-32.0); Mean Corpuscular Volume 97.1 fL (80-94); Mean Platelet Vol. 12.4 fl (6.2-12.0); Monocyte# 1.01 X10^3/uL; Monocyte% 19.7 % (0-10); NRBC Flagged by Analyzer 0 % (0-5); Neutrophil # 3.05 X10^3/uL (2.7-7.7); Neutrophil % 59.4 % (47-70); Platelet Count 125 K/mm3 (150-450); RBC Distribution Width CV 14.3 % (11.6-14.6); RBC Distribution Width SD 50.8 fl (35.1-43.9); Red Blood Count 3.81 M/mm3 (4.6-6.2); White Blood Count 5.1 K/mm3 (4.4-11.0)
[2024-02-15 18:21] LABS: Anion Gap 5 (5-15); BUN 51 mg/dL (7-18); BUN/Creat Ratio 16.8 RATIO (10-20); Calcium,Total 8.9 mg/dL (8.5-10.1); Chloride 110 mmol/L (98-107); Creatinine, Serum 3.03 mg/dL (0.70-1.30); EST Glomerular Filtration Rate 21 mL/min (>60); Est Glom Filt Rate - Afr Amer 25 mL/min (>60); Glucose 136 mg/dL (74-106); Sodium Level 140 mmol/L (136-145)
== END | disposition home or self-care (01) ==
LOC: MFPLAB 14:17
PROVIDERS: Family Medicine; PCP Family Medicine; Visit Provider Family Medicine
DX: E87.5 Hyperkalemia (principal); R31.9 Hematuria, unspecified
CPT/HCPCS: 80048; 85025

== ENCOUNTER 2024-03-02 09:37 | Inpatient (IN) | payer MEDICARE, SELFPAY ==
[2024-03-02 09:37] VITALS: BP 161/95; PULSE 102; RESP 14; TEMP 36.6; O2SAT 100
--- NOTE | 2024-03-02 10:07 | CT_ITS ---
INDICATION: ALOC EXAMINATION: CT BRAIN - CT Head or Brain W/O Contrast Injection TECHNIQUE: Multiple axial images were obtained of the head without intravenous contrast. The protocol utilizes one or more of the following dose reduction techniques: automated exposure control, adjustment of mA and/or kV according to patient size,and/or use of iterative reconstruction technique. IV Contrast dosage and agent: None. RADIATION DOSAGE (If Supplied By Facility): CTDIvol = ( 44.99 ) mGy, DLP = ( 762.36 ) mGycm COMPARISON: Prior study dated: 11/29/2023 FINDINGS: BRAIN PARENCHYMA: No intra- or extra-axial hemorrhage. No evidence of acute infarct. 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 Small old lacunar infarct in the left basal ganglia. Periventricular deep white matter changes likely due to chronic microvascular disease. There is otherwise preservation of the daniel/white matter interface. Posterior fossa structures are unremarkable. Atherosclerotic calcifications of the cavernous internal carotid arteries. CSF SPACES: Appropriate for age. No hydrocephalus. Basal cisterns are patent. CALVARIUM, SKULL BASE, PARANASAL SINUSES AND MASTOID AIR CELLS: Clear. No discrete lytic or blastic abnormalities. ORBITS: Previous bilateral cataract surgery. CT/Brain/Head without Contrast IMPRESSION: 1. No acute intracranial process. 2. Left frontal and parietal encephalomalacia. 3. Chronic involutional changes of the brain. Electronically Signed: Darren Gonzalez MD at 11:32 EDT ,
--- NOTE | 2024-03-02 10:07 | EKG12_ITS ---
Test Reason : CONFUSION Blood Pressure : / mmHG Vent. Rate : 093 BPM Atrial Rate : 093 BPM P-R Int : 194 ms QRS Dur : 086 ms QT Int : 378 ms P-R-T Axes : 071 074 078 degrees QTc Int : 469 ms Normal sinus rhythm Normal ECG Confirmed by Sean Torres ([id number]), metropolitan editor NOEMÍ COVARRUBIAS ([id number]) on 03/04/2024 9:27:03 AM Referred By: Confirmed By:Sean Torres
--- NOTE | 2024-03-02 10:08 | EDS_ITS ---
HPI History of Present Illness Chief Complaint: Alt LOC Informant: patient and spouse/S.O. Onset/Context/Timing Onset: Days Context: Gradual Onset Timing: Continuous Current Severity: Moderate Maximum Severity: Moderate Narrative Narrative: 88-year-old male history of dementia, chronic kidney disease, diabetes and CAD. Lives at home with his . She states has had decreasing mental status. Recent had a UTI. His primary care physician Dr. Mike Salas recently adjusted his medications adding Ativan. states the last 3 days he has not slept has been up all night. Now he is talking to people who are not there. He is having visual hallucinations. He has had some mild diarrhea. No documented fever. No falls or head trauma. Prior similar symptoms: No Recent Illness/Hospitalization: Yes [facility] Medical History Acute confusion Chronic renal insufficiency History of diabetes mellitus History of hypertension Dementia Polymyalgia rheumatica Cricopharyngeal dysphagia Wears glasses Thyroid disease Walker as ambulation aid Ambulates with cane Gout Seizures Gastric reflux Sleep apnea Hypertension PONV (postoperative nausea and vomiting) Glucosuria Pure hypercholesterolemia Presence of stent in coronary artery (~10/31/10) Hypothyroidism Essential hypertension Hyperlipidemia Type II diabetes mellitus Coronary atherosclerosis of [place] coronary artery Chronic kidney disease Home Medications ?Medication ?Instructions ?Recorded ?Last Taken ?Type nitroglycerin 0.4 mg sublingual 0.4 mg sublingual Q5M PRN Chest 11/06/18 Unknown Rx tablet Pain #25 tabs levothyroxine 100 mcg tablet 100 mcg PO DAILY THYROID 04/12/22 03/02/24 History metoprolol succinate 50 mg See Rx Instructions .Route 10/30/22 02/29/24 Rx tablet,extended release 24 hr .COMPLEX #90 TABLETS aspirin 81 mg chewable tablet 81 mg PO BREAKFAST #0 tabs 03/08/23 02/29/24 Rx allopurinol 300 mg tablet 300 mg PO QDAY 09/14/23 02/29/24 History donepezil 10 mg tablet 10 mg PO DAILY 09/15/23 02/29/24 History lorazepam 0.5 mg tablet (Ativan) 0.5 mg PO TID PRN tremor(s) 5 days 11/29/23 03/02/24 Rx #15 tabs insulin lispro 100 unit/mL See Protocol subcut TIDCM 12/17/23 02/29/24 History subcutaneous pen (Humalog KwikPen (U-100) Insulin) indomethacin 25 mg capsule 25 mg PO TID PRN JOINT PAIN 03/02/24 02/29/24 History insulin glargine-yfgn 100 unit/mL 10 unit subcut QHS 03/02/24 02/29/24 History (3 mL) subcutaneous pen quetiapine 25 mg tablet 25 mg PO QHS 03/02/24 02/29/24 History Allergy/AdvReac Type Severity Reaction Status Date / Time clopidogrel bisulfate (From Allergy Rash Verified 03/02/24 09:38 Plavix) cyclobenzaprine Allergy Rash Verified 03/02/24 09:38 (Cyclobenzaprine) fluoxetine HCl (From Prozac) Allergy Rash Verified 03/02/24 09:38 Family History Father Diabetes Mother Diabetes Surgical History History of esophageal dilatation (~07/2021) Presence of coronary angioplasty implant and graft (~10/31/10) History of back surgery History of cholecystectomy toenail removed H/O percutaneous transluminal coronary angioplasty Social History household members: spouse housing: house other: Typically ambulates with a cane however most recently with a walker seconda Smoking Status: Never smoker alcohol intake: never substance use type: does not use caffeine: Yes Type: tea Number of servings: 1 what type of physical activity do you participate in: none ROS ROS ED ROS Narrative Mental status change. Diarrhea. Constitutional Constitutional ED: Denies chills or fever(s) Eyes Eyes: Denies blurry vision ENT ENT ED: Denies ear pain Cardiovascular Cardiovascular: Denies chest pain Respiratory/Chest Respiratory/Chest: Denies cough Gastrointestinal Gastrointestinal: Denies abdominal pain Genitourinary Genitourinary ED: Reports hematuria; Denies dysuria Musculoskeletal Musculoskeletal: Denies arthralgias Integumentary Denies abscess Neurologic Neurologic: Denies headache(s) Psychiatric Psychiatric: Denies anxiety Endocrine Endocrinology: Denies cold intolerance Hematologic/Lymphatic Hematologic/Lymphatic: Reports none Allergic/Immunologic Allergic/Immunologic ED: Denies mouth swelling, tongue swelling or urticaria EXAM Physical Exam Narrative Exam Narrative: 88-year-old male sitting upright in bed. at bedside. No acute distress. Vital signs are stable and afebrile. He does not look septic or toxic. H EENT exam pupils round reactive light. No trauma. Limited dentition. Dry mucous membranes. Neck nontender. No lymphadenopathy. Lungs clear to auscultation b ilaterally. Heart regular rhythm rate about 100 no murmur. Chest wall ribs nontender. Abdomen soft nontender. Moving all 4 extremities. Neurologically he is awake. He has limited vision. He is moving all 4 extremities. He knows he is in the hospital. He does not know the month, date or year. Const Vital Signs: 03/02/24 09:37 03/02/24 11:37 Temperature 97.9 F Temperature Source Temporal Pulse Rate 102 H 78 Respiratory Rate 14 16 Blood Pressure 161/95 H 135/89 H Blood Pressure Mean 117 104 Pulse Ox 100 95 Oxygen Delivery Method Room Air Room Air Positive well nourished and well developed; Negative for obese, cachectic, contractures or unkempt General Appearance ED: well developed and NAD; Negative for unkempt, cachectic, contractures, cyanotic, diaphoretic or pallor Nutritional Appearance: Negative for cachectic or obese HEENT Reports dry mucous membranes; Denies moist mucous membranes Negative for trauma or tenderness Mouth ED: Yes dry mucous membranes Mouth: dry mucous membranes Eyes PERRL and EOMs intact bilaterally General Eye ED: Negative for pale conjunctiva Neck no lymphadenopathy, supple and no JVD General: Negative for tenderness Lymph Lymphatic: Negative for other Chest Wall inspection of chest normal and palpation of chest normal Resp normal respiratory effort and clear to auscultation bilaterally Effort and Inspection: Negative for retractions Auscultation: Negative for rales, rhonchi, wheezes or diminished lung sounds Cardio regular rate, regular rhythm, S1 normal heart sound, S2 normal heart sound and no murmurs GI normal to inspection, nondistended, normoactive bowel sounds, non-tender, non- distended and no masses Inspection: Negative for abdominal distention Auscultation: normoactive bowel sounds Palpation: soft; Negative for tender, guarding or rebound tenderness present Back/Spine no CVA tenderness General Back: Negative for CVA tenderness Cervical Spine: Negative for cervical spine tenderness Thoracic Spine / Upper Back: Negative for thoracic spinal tenderness Extremity normal to inspection General Extremety ED: Negative for edema or tenderness General Extremity: Negative for edema Neuro No oriented x3 and CN's II-XII intact bilaterally Neuro Narrative: Limited vision. Confusion. Knows place but not time or date. Sensorium / Orientation: alert and orientation impaired; Negative for lethargic Motor Exam: strength 5/5 throughout Psych mental status grossly normal Appearance: Negative for unkempt Attitude: No agitated Mood & Affect: Negative for depressed, anxious or tearful Skin no rashes or lesions noted and no wounds General Skin Exam: Negative for jaundice or pallor Lesions: No lesion noted Rashes: No rashes noted Trauma: Negative for abrasion Wounds: Negative for wounds noted MDM MDM MDM Narrative Medical decision making narrative: 88-year-old male with dementia with decreased mental status and visual hallucinations. Undergoing evaluation for different causes of mental status change including metabolic encephalopathy, dehydration, infection, electrolyte abnormalities etc. CAT scan labs are pending. He will receive IV fluids because he looks mildly dehydrated. Repeat exam at 11:48 AM unchanged. Patient's labs are chronic changes consistent with prior. Prior anemia. Prior renal insufficiency. Discussed with the patient's . She does not feel like she can care for him currently at home. She would like him admitted. Further evaluation. And if needed penitentiary placement. I have the hospitalist on page. He is trying to urinate at this time if we do not get urine we may have to straight cath him. History & Record Review Discussion w/independent historian: Patient Additional record(s) reviewed:: Prior inpatient record, Prior outpatient record, Prior ED visit and Prior labs Lab Data Attestation: I reviewed the patient's lab results. Lab results narrative: CBC shows a white count of 5. H&H 10.7 and 32.8. Platelets 84,000. So has anemia and thrombocytopenia. Electrolytes show potassium of 5.4. Gap 5. BUN and creatinine are 39 and 2.87. Glucose 210. Liver enzymes unremarkable. CAT scan of the brain shows chronic changes. Chest x-ray unremarkable. Chronic changes. Labs: Laboratory Results - last 24 hr 03/02/24 10:30 WBC 5.2 RBC 3.45 L Hgb 10.7 L Hct 32.8 L MCV 95.1 H MCH 31.0 MCHC 32.6 RDW Std Deviation 49.1 H RDW Coeff of Sea 14.2 Plt Count 84 L MPV 10.4 Neut % (Auto) Not Reportable Absolute Neuts (auto) 3.2 Absolute Lymphs (auto) 1.65 Total Counted 100 Neutrophils % (Manual) 60 Band Neutrophils % 1 Lymphocytes % (Manual) 32 Monocytes % (Manual) 2 Eosinophils % (Manual) 5 Platelet Estimate SLT DEC RBC Morphology NORM C+C Sodium 139 Potassium 5.4 H Chloride 110 H Carbon Dioxide 24.0 Anion Gap 5 BUN 39 H Creatinine 2.87 H Est GFR (MDRD) Af Amer 27 L Est GFR (MDRD) Non-Af 22 L BUN/Creatinine Ratio 13.6 Glucose 210 H Calcium 8.6 Total Bilirubin 0.40 AST 17 ALT 14 L Alkaline Phosphatase 94 Total Protein 6.7 Albumin 3.2 Globulin 3.5 Albumin/Globulin Ratio 0.9 Radiography Chest X-Ray - ED: Read by ED Physician, Read by Radiologist, Normal, Heart, Lungs, Mediastinum, Bony Structures, No Acute Disease and Chronic Changes Diagnostic Testing: Clinical Impression(s) from Imaging Studies Brain CT 03/02/24 10:07 IMPRESSION: 1. No acute intracranial process. 2. Left frontal and parietal encephalomalacia. 3. Chronic involutional changes of the brain. Electronically Signed: Darren Gonzalez MD at 11:32 EDT , Chest X-Ray 03/02/24 10:20 IMPRESSION: No radiographic evidence of acute cardiopulmonary disease. Electronically Signed: Darren Gonzalez MD at 10:59 EDT , Chest x-ray, portable, single view interpreted both by myself and the radiologist shows no acute abnormality. Normal cardiac silhouette. Lung melendez. No infiltrates. Rhythm Strip Rhythm Strip: Sinus Rhythm Rate: 93 Ectopy: None EKG Initial EKG: Attestation: I personally reviewed and interpreted this EKG as follows: Interpretation: Sinus Rhythm and No Acute Injury Pattern Comments: Normal sinus rhythm rate 93 no acute signs of NM, ischemia or dysrhythmia. Discharge Plan Dx/Rx/DC Orders Clinical Impression: Altered level of consciousness, Chronic kidney disease, History of diabetes mellitus, History of dementia, Hallucination, visual, Acute hyperkalemia, Chronic anemia Disposition Disposition: Acute Care Hospital [facility]
--- NOTE | 2024-03-02 10:20 | RAD_ITS ---
INDICATION: ALOC EXAMINATION/TECHNIQUE: X-RAY - XR Chest 1 View COMPARISON: Prior study dated: 11/29/2023 FINDINGS: LINES/DEVICES: None. LUNGS: No consolidation, edema or effusion. No pneumothorax. MEDIASTINUM AND CARDIOVASCULAR STRUCTURES: Cardiac silhouette not enlarged. Central airways and mediastinal contour are unremarkable. BONES AND SOFT TISSUES: No demonstrated acute osseous changes. RAD/Chest 1 View (Portable) IMPRESSION: No radiographic evidence of acute cardiopulmonary disease. Electronically Signed: Darren Gonzalez MD at 10:59 EDT ,
[2024-03-02 10:36] LABS: Hematocrit 32.8 % (40-54); Hemoglobin 10.7 g/dL (13.0-16.5); Mean Corp Hgb Conc 32.6 g/dL (32-36); Mean Corpuscular Volume 95.1 fL (80-94); Mean Platelet Vol. 10.4 fl (6.2-12.0); POSITIVE COUNT YES; POSITIVE MORPHOLOGY YES; Platelet Count 84 K/mm3 (150-450); RBC Distribution Width CV 14.2 % (11.6-14.6); RBC Distribution Width SD 49.1 fl (35.1-43.9); Red Blood Count 3.45 M/mm3 (4.6-6.2); White Blood Count 5.2 K/mm3 (4.4-11.0)
[2024-03-02 10:37] LABS: Differential Indicated MANUAL DIFF
[2024-03-02 10:51] LABS: ALB/GLOB Ratio 0.9 RATIO (0.9-2.4); AST(SGOT) 17 U/L (15-37); Alanine Aminotransfer ALT/SGPT 14 U/L (16-61); Albumin, Serum 3.2 g/dL (3.2-5.0); Alkaline Phosphatase 94 U/L (45-117); Anion Gap 5 (5-15); BUN 39 mg/dL (7-18); BUN/Creat Ratio 13.6 RATIO (10-20); Calcium,Total 8.6 mg/dL (8.5-10.1); Chloride 110 mmol/L (98-107); Creatinine, Serum 2.87 mg/dL (0.70-1.30); EST Glomerular Filtration Rate 22 mL/min (>60); Est Glom Filt Rate - Afr Amer 27 mL/min (>60); Globulin 3.5 g/dL (2.2-4.2); Glucose 210 mg/dL (74-106); Potassium 5.4 mmol/L (3.5-5.1); Protein, Total 6.7 g/dL (6.4-8.2); Sodium Level 139 mmol/L (136-145)
[2024-03-02 11:11] LABS: Eosinophil 5 % (0-5); Lymphocyte 32 % (19-41); Monocyte 2 % (0-10); Neutrophil-Band 1 % (0-5); Neutrophil-Segmented 60 % (47-70); Total Cells Counted 100 (MANUAL DIFF)
[2024-03-02 11:12] LABS: Platelet Estimate SLT DEC (ADEQ)
[2024-03-02 11:13] LABS: Absolute Lymphocyte Count 1.65 X10^3/uL (0.83-4.51); Absolute Neutrophil Count 3.2 X10^3/uL (2.0-7.7); Red Cell Morphology NORM C+C NORMAL (NORM C&C)
[2024-03-02 11:37] VITALS: BP 135/89; PULSE 78; RESP 16; O2SAT 95
[2024-03-02] MEDS: 0.9% Normal Saline (1000mL) 1,000 ML 1000 ML IV (11:37)
[2024-03-02 11:39] VITALS: BMI 25.8
--- NOTE | 2024-03-02 11:43 | ED.RN ---
recently treated for uti. weakness and hallucinations currently
--- NOTE | 2024-03-02 11:45 | CM.ED ---
Social Work: Date of referral: 03/02/2024 Reason for referral: Altered Mental Status Referred by: Social Work Identification Upon arrival, patient was lying in hospital bed, appearing to be disoriented with close to bedside. Patient currently lives at home with his who verbalized she is struggling with being able to care for patient. Mrs. Walden reported patient requires 24/7 care which is hard for her to provide. Mrs. Walden reported she has her own health conditions and at her age has a hard time lifting patient and providing care of the day to day help that's required. Mrs. Walden reported patient hasn't slept in 3 days which means she hasn't slept in 3 days. Mrs. Walden reported if she doesn't get to sleep and get a break, she fears she too will end up in the hospital. Mrs. Walden reported she was told patient is able to be placed on hospice and and Mrs. Walden's daughter is currently helping her secure a possible respite placement or long-term placement for patient. Mrs. Walden is currently looking into the [facility] for patient. Mrs. Walden reported that patient has been talking to people who aren't there. domestic laundry worker observed patient looking towards the ceiling, talking and reaching his hand up in the air. Patient is going to be admitted and patient's will be in need of assistance with discharge planning to assist with possible SNF or hospice placement from hospital. Sara Bridges, GLUE REEL OPERATOR, MACHINE SET UP
--- NOTE | 2024-03-02 12:00 | HP.PCM.HOS_ITS ---
HPI - General General Date of Admission: 03/02/24 Date of Service: 03/02/24 Chief Complaint: Worsening confusion in setting of dementia HPI Narrative ROSHNI GARCIA, is a 88 M who presented to [facility] ED on 03/02/2024 worsening confusion. Saw patient at bedside in the ED, present. Patient has history of dementia. Lives at home with . states that over the past 3 days or so patient has had worsening confusion from his baseline. He has not been sleeping hardly at all. He began having visual hallucinations and talking to people who were not there within the last day. She is his primary physician assistant psychiatry and he has not been able to do much of anything for himself recently, so she brought him in for further evaluation. Patient notably was prescribed Ativan 0.5 mg 3 times daily as needed by PCP recently for tremors. Was also just prescribed Seroquel 25 mg at night on 02/26 as reported he was having difficulty sleeping at night. She states that his tremors have been bad in the past week and she has given him more doses of Ativan for this. Has been taking the Seroquel for the last few nights as well. CT brain showed chronic left frontal and parietal encephalomalacia, no acute process. Patient afebrile and hemodynamically stable. UA unremarkable. Labs are at his baseline. Given his worsening confusion and inability of to care for him at home, hospitalist was contacted for admission. On my encounter, patient was laying back comfortably in bed but did appear confused. He was nontoxic-appearing. No overt neurologic deficits noted. He was oriented to self but not to place or time. When I asked where he was in the month, he actually laughed first and then proceeded to try to answer the question but answered incorrectly. He denied any acute pain or discomfort. Will be admitted for further management. [facility] Medical History Acute confusion Chronic renal insufficiency History of diabetes mellitus History of hypertension Dementia Polymyalgia rheumatica Cricopharyngeal dysphagia Wears glasses Thyroid disease Walker as ambulation aid Ambulates with cane Gout Seizures Gastric reflux Sleep apnea Hypertension PONV (postoperative nausea and vomiting) Glucosuria Pure hypercholesterolemia Presence of stent in coronary artery (~10/31/10) Hypothyroidism Essential hypertension Hyperlipidemia Type II diabetes mellitus Coronary atherosclerosis of [place] coronary artery Chronic kidney disease Home Medications ?Medication ?Instructions ?Recorded ?Last Taken ?Type nitroglycerin 0.4 mg sublingual 0.4 mg sublingual Q5M PRN Chest 11/06/18 Unknown Rx tablet Pain #25 tabs levothyroxine 100 mcg tablet 100 mcg PO DAILY THYROID 04/12/22 03/02/24 History metoprolol succinate 50 mg See Rx Instructions .Route 10/30/22 02/29/24 Rx tablet,extended release 24 hr .COMPLEX #90 TABLETS aspirin 81 mg chewable tablet 81 mg PO BREAKFAST #0 tabs 03/08/23 02/29/24 Rx allopurinol 300 mg tablet 300 mg PO QDAY 09/14/23 02/29/24 History donepezil 10 mg tablet 10 mg PO DAILY 09/15/23 02/29/24 History lorazepam 0.5 mg tablet (Ativan) 0.5 mg PO TID PRN tremor(s) 5 days 11/29/23 03/02/24 Rx #15 tabs insulin lispro 100 unit/mL See Protocol subcut TIDCM 12/17/23 02/29/24 History subcutaneous pen (Humalog KwikPen (U-100) Insulin) indomethacin 25 mg capsule 25 mg PO TID PRN JOINT PAIN 03/02/24 02/29/24 History insulin glargine-yfgn 100 unit/mL 10 unit subcut QHS 03/02/24 02/29/24 History (3 mL) subcutaneous pen quetiapine 25 mg tablet 25 mg PO QHS 03/02/24 02/29/24 History Allergy/AdvReac Type Severity Reaction Status Date / Time clopidogrel bisulfate (From Allergy Rash Verified 03/02/24 09:38 Plavix) cyclobenzaprine Allergy Rash Verified 03/02/24 09:38 (Cyclobenzaprine) fluoxetine HCl (From Prozac) Allergy Rash Verified 03/02/24 09:38 Family History Father Diabetes Mother Diabetes Surgical History History of esophageal dilatation (~07/2021) Presence of coronary angioplasty implant and graft (~10/31/10) History of back surgery History of cholecystectomy toenail removed H/O percutaneous transluminal coronary angioplasty Social History household members: spouse housing: house other: Typically ambulates with a cane however most recently with a walker seconda Smoking Status: Never smoker alcohol intake: never substance use type: does not use caffeine: Yes Type: tea Number of servings: 1 what type of physical activity do you participate in: none ROS Review of Systems ROS Unobtainable: due to mental status Cardiovascular Cardiovascular: Denies chest pain Respiratory/Chest Respiratory/Chest: Denies shortness of breath at rest Gastrointestinal Gastrointestinal: Denies abdominal pain Vital Signs Vital Signs Vital Signs: 03/02/24 09:37 03/02/24 11:37 Temperature 97.9 F Temperature Source Temporal Pulse Rate 102 H 78 Respiratory Rate 14 16 Blood Pressure 161/95 H 135/89 H Blood Pressure Mean 117 104 Pulse Ox 100 95 Oxygen Delivery Method Room Air Room Air Weight Weight: 70.4 kg Body Mass Index (BMI) 25.8 Physical Exam Const alert, no apparent distress and average body habitus Constitutional Narrative: Elderly male, alert to person but not to place or time, laying back comfortably in bed, not anxious appearing, in no acute distress. General Appearance: comfortable HEENT normocephalic, head/scalp atraumatic, hearing grossly normal bilaterally and nasal mucous membranes and turbinates normal Eyes PERRL, EOMs intact bilaterally and conjunctivae normal Neck full ROM Chest inspection of chest normal Resp normal respiratory effort, normal air movement, no use of accessory muscles and clear to auscultation bilaterally Cardio regular rate, regular rhythm, no murmurs and peripheral pulses 2+ throughout GI normal to inspection, nondistended, normoactive bowel sounds, soft to palpation, non-tender and non-distended Back/Spine normal ROM Extremity normal to inspection and no pedal edema Skin no rashes or lesions noted Neuro moves all extremities and no focal motor deficits Sensorium / Orientation: awake, alert and oriented to person; Negative for oriented to place or oriented to time Results Lab / Micro Data 03/02/24 10:30 03/02/24 10:30 Labs: Laboratory Results - last 24 hr 03/02/24 10:30: WBC 5.2, RBC 3.45 L, Hgb 10.7 L, Hct 32.8 L, MCV 95.1 H, MCH 31.0, MCHC 32.6, RDW Std Deviation 49.1 H, RDW Coeff of Sea 14.2, Plt Count 84 L , MPV 10.4, Neut % (Auto) Not Reportable, Absolute Neuts (auto) 3.2, Absolute Lymphs (auto) 1.65, Total Counted 100, Neutrophils % (Manual) 60, Band Neutrophils % 1, Lymphocytes % (Manual) 32, Monocytes % (Manual) 2, Eosinophils % (Manual) 5, Platelet Estimate SLT DEC, RBC Morphology NORM C+C, Sodium 139, P otassium 5.4 H, Chloride 110 H, Carbon Dioxide 24.0, Anion Gap 5, BUN 39 H, C reatinine 2.87 H, Est GFR (MDRD) Af Amer 27 L, Est GFR (MDRD) Non-Af 22 L, BUN/Creatinine Ratio 13.6, Glucose 210 H, Calcium 8.6, Total Bilirubin 0.40, AST 17, ALT 14 L, Alkaline Phosphatase 94, Total Protein 6.7, Albumin 3.2, Globulin 3.5, Albumin/Globulin Ratio 0.9 Rhythm Strip Rhythm Strip: Sinus Rhythm Rate: 93 Ectopy: None Imaging Radiology Impression Brain CT 03/02/24 10:07 IMPRESSION: 1. No acute intracranial process. 2. Left frontal and parietal encephalomalacia. 3. Chronic involutional changes of the brain. Electronically Signed: Darren Gonzalez MD at 11:32 EDT , Chest X-Ray 03/02/24 10:20 IMPRESSION: No radiographic evidence of acute cardiopulmonary disease. Electronically Signed: Darren Gonzalez MD at 10:59 EDT , Assessment & Plan Assessment/Plan (1) Toxic encephalopathy: (2) History of dementia: (3) Generalized weakness: PLAN: Plan Patient is an 88-year-old male who presented [facility] ED on 03/02/2024 with worsening confusion. 1. Suspected acute toxic encephalopathy in setting of dementia ? Admit under inpatient status to [facility]. Suspect worsening mental status on admission is primarily due to Ativan that was recently prescribed. Seroquel only taken for a few days but did not seem effective. CT brain unremarkable. Labs at baseline. Patient afebrile and hemodynamically stable. No neurologic deficits noted. Hold home Ativan and Seroquel. Will start risperidone 0.5 mg at night for now. Avoid other deliriogenic medications. 2. Acute on chronic debility ? PT/OT/case management consulted. Lives at home with . has had difficulty caring for him at home recently even prior to onset of encephalopathy. May need SNF placement versus consideration of long-term care on discharge. 3. Mild hyperkalemia ? Potassium 5.4 on admit. Has CKD stage IV as noted below, creatinine at baseline. Did appear mildly dry on admit, was given 1 L normal saline in the ED. Follow-up a.m. potassium level. 4. CKD stage IV ? Creatinine 2.87 on admit, baseline 2.5-3.0. Follow-up a.m. BMP and monitor urine output. 5. Tremors ? Reported history of tremors per . Suspect tremors may be related to his dementia of unclear type. Was prescribed Ativan as needed for this. Will need to consider alternative medical therapies for this going forward. Chronic medical conditions: ? Chronic anemia: Hemoglobin 10.7 on admit, baseline around 11. Stable. ? Type 2 diabetes mellitus: Blood glucose 214 on admit. Continue home Lantus 10 units at night and sliding scale insulin with meals as needed. ? Hypothyroidism: Continue home Synthroid. ? History of CAD with stenting, hypertension: Continue home aspirin and metoprolol. ? History of gout: Continue home allopurinol. DVT prophylaxis: Heparin subcu CODE STATUS: DNR CCA, DNI Expected disposition: TBD Total clinical time spent by myself addressing the patient's medical issues, reviewing all the data, and collaborating with patient's care team: 75 minutes. Charges/Coding Visit Charges Inpatient E&M: 27294 Init Hosp L3
[2024-03-02 13:00] VITALS: BP 146/71; PULSE 64
[2024-03-02 13:11] VITALS: BP 146/71; PULSE 74; RESP 16; TEMP 36.7; O2SAT 96
[2024-03-02 13:11] LABS: Bacteria 0 SEEN /hpf (None Seen); Mucous, Urine 0 SEEN /hpf (<or=2+); Red Blood Cells-Urine 0 SEEN /hpf (0-5); Squamous Epithelial Cells - UA 0 SEEN /hpf (0-5); White Blood Cells 0 SEEN /hpf (0-5)
[2024-03-02 13:18] LABS: Color, Urine Straw (Yellow); Glucose, Dipstick Normal (Normal); Ketone-Dipstick Negative (Negative); Leukocyte Esterase-Dipstick Negative /ul (Negative); Nitrite-Dipstick Negative (Negative); Occult Blood-Urine Negative /ul (Negative); Protein-Dipstick 30 mg/dl (Negative); Specific Gravity, Urine 1.005 (1.002-1.030); Urine Bilirubin Dipstick Negative (Negative); Urine Clarity Clear (Clear); Urine Urobilinogen Normal (Normal)
[2024-03-02 15:18] VITALS: BMI 24.7
[2024-03-02 15:30] VITALS: BP 137/95; PULSE 64; RESP 18; TEMP 36.4; O2SAT 96
[2024-03-02 17:40] LABS: Bedside Glucose 121 mg/dL (74-106)
[2024-03-02 21:53] VITALS: BP 152/97; PULSE 77; RESP 16; TEMP 36.4; O2SAT 100
[2024-03-02] MEDS: RisperiDONE 0.5 MG Tablet PO (21:55)
[2024-03-02 22:25] LABS: Bedside Glucose 126 mg/dL (74-106)
[2024-03-03 04:45] VITALS: BP 145/71; PULSE 95; RESP 18; TEMP 36.4; O2SAT 100
[2024-03-03] MEDS: Levothyroxine 100 MCG Tablet PO (04:58)
[2024-03-03 07:12] LABS: Hematocrit 36.9 % (40-54); Hemoglobin 11.9 g/dL (13.0-16.5); Mean Corp Hgb Conc 32.2 g/dL (32-36); Mean Corpuscular Hgb 30.5 pg (27.0-32.0); Mean Corpuscular Volume 94.6 fL (80-94); POSITIVE COUNT YES; Platelet Count 96 K/mm3 (150-450); RBC Distribution Width CV 14.4 % (11.6-14.6); RBC Distribution Width SD 49.4 fl (35.1-43.9); White Blood Count 5.8 K/mm3 (4.4-11.0)
[2024-03-03 07:37] VITALS: BP 127/76; PULSE 98; RESP 16; TEMP 36.6; O2SAT 95
[2024-03-03 07:42] LABS: Anion Gap 11 (5-15); BUN 32 mg/dL (7-18); BUN/Creat Ratio 12.7 RATIO (10-20); Chloride 112 mmol/L (98-107); Creatinine, Serum 2.52 mg/dL (0.70-1.30); EST Glomerular Filtration Rate 26 mL/min (>60); Est Glom Filt Rate - Afr Amer 31 mL/min (>60); Estimated Creatinine Clearance 17.29 ml/min; Glucose 131 mg/dL (74-106); Potassium 5.6 mmol/L (3.5-5.1); Sodium Level 142 mmol/L (136-145)
[2024-03-03 07:45] LABS: Scan Indicated on CBC? Y/N NO
[2024-03-03] MEDS: Aspirin 81 MG TAB.CHEW PO (07:46)
--- NOTE | 2024-03-03 09:24 | CASEMGMT ---
Discharge Planning A list of?SNF providers including quality and resource use data and consistent with the patient's preferred geographic region, medical needs, and insurance network was created in [employer] Guide.? This list was provided to the DARREN. Dixie Grady, Discharge Planning Asst
[2024-03-03] MEDS: Sodium Polystyrene Sulfonate 15 GM/60 ML UDC PO (09:42)
[2024-03-03] MEDS: Heparin Injection (Vial) 5,000 UNIT/ML VIAL 5000 UNIT SC ×2 (09:44→21:14)
[2024-03-03 09:45] VITALS: PULSE 98
[2024-03-03] MEDS: Metoprolol(XL)Succ 50 MG Tablet PO (09:45)
[2024-03-03] MEDS: Allopurinol 100 MG Tablet PO (09:45)
[2024-03-03] MEDS: Donepezil HCl 10 MG Tablet PO (09:45)
--- NOTE | 2024-03-03 10:50 | CASEMGMT ---
Addendum entered by Nancy Miller 03/03/24 15:05: Social Work- SW called pt , as she was not in the room, to f/u on SNF choices. SW left a voicemail requesting a return call. FELIPE Arevalo Original Note: Social Work- A list of SNF providers including quality and resource use data and consistent with the patient?s preferred geographic region, medical needs, and insurance network were provided from the [employer] Guide. Pt and will review; SW will f/u. Pt is leaning towards [facility], as pt has been there prior, or [facility], as pt thinks her d-i-l works there, but wants to verify and discuss choices with children. FELIPE Arevalo
[2024-03-03 16:00] VITALS: BP 135/85; PULSE 92; RESP 16; TEMP 36.7; O2SAT 95
--- NOTE | 2024-03-03 16:33 | CHAPLAIN ---
Type of Pastoral Visit _x__ Initial Visit ___ Follow-up Visit ___ On-call Visit ___ General Patient Visit ___ Spiritual Assessment ___ Family Conference ___ Bereavement ___ Rapid Response ___ Code Blue ___ Other (describe below) Pastoral Care Referral From _x__ Patient ___ Family ___ Nurse ___ Physician ___ Process Environmental Technician ___ Aquaculture Director ___ Other (describe below) Sacrament/Intervention _x__ Active listening ___ Anointing ___ Bahai ___ Bereavement ___ Communion ___ Blanche exploration ___ _x__ Life review _x__ Prayer ___ Reconciliation ___ Sacrament of Sick _x__ Supportive presence ___ Wedding ___ Other (describe below) Pastoral Comments patient is eager to talk and visit; pt declares that he is doing well and that he is able to answer my questions; however pt has difficulty following the questions and giving answers that appear to be appropriate; pt is pleasant, expresses thankfulness for the visit; pt welcomed a prayer
--- NOTE | 2024-03-03 19:08 | PN.HOSP_ITS ---
Reason for Visit Reason for Visit: Altered mental status Subjective Subjective Patient is an 88-year-old male with a history of dementia but typically oriented to self, place, and most of the time time who presented to the emergency department at [facility] on 03/03/2024 secondary to worsening confusion. He lives at home with his and that his reported that over the past 3 days prior to presentation he had been having worsening confusion from his baseline. His sleep habits had been poor and he was having visual hallucinations. She is his primary caregiver at baseline and had not been able to do much of anything for himself so she brought him in for further evaluation. Evidently, he was prescribed Ativan 0.5 mg 3 times daily as needed by his PCP for tremors as well as Seroquel 25 mg at at bedtime due to his difficulty sleeping she also reported that his tremors have been worse despite his Ativan. She decided to give him extra doses of the Ativan for this. Vital signs on presentation were unremarkable. Labs were at baseline when compared to previous. 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 It was highly suspected at the time of admission he was confused due to increased Ativan usage in combination with Seroquel. These medications were discontinued and he was placed on low-dose risperidone at bedtime to help with any sundowning that he may suffer and continued monitoring was recommended. He was also evaluated by physical and Occupational Therapy due to difficulty with ADLs and IADLs at home under his current status. His is at the bedside today and reported that overall he seems to be improving but is not quite at his baseline yet. I did inform her that it may take some time due to the half-life of Ativan. I did discuss with her that he also may repeat remain with some increased confusion from his baseline due to his baseline dementia and being out of a familiar environment. She voiced understanding. Objective Data Objective Data Vital Signs: Vital Signs Temp Pulse Resp BP Pulse Ox O2 Del Method 98.0 F 92 16 135/85 H 95 Room Air 03/03/24 16:00 03/03/24 16:00 03/03/24 16:00 03/03/24 16:00 03/03/24 16:00 03/03/24 16:00 Oxygen Delivery Method Room Air Weight: 67.585 kg Body Mass Index (BMI) 24.7 Intake & Output: Intake and Output for Last 24 Hours 03/01/24 03/02/24 03/03/24 23:59 23:59 23:59 Intake Total 1000 / 1000 Output Total 1000 / 1450 750 / 750 Balance 0 / -450 -750 / -750 Lab / Micro Data 03/03/24 06:41 03/03/24 06:41 Labs: Laboratory Results - last 24 hr 03/02/24 21:51: POC Glucose 126 H 03/03/24 06:41: WBC 5.8, RBC 3.90 L, Hgb 11.9 L, Hct 36.9 L, MCV 94.6 H, MCH 30.5, MCHC 32.2, RDW Std Deviation 49.4 H, RDW Coeff of Sea 14.4, Plt Count 96 L , MPV 12.0, Sodium 142, Potassium 5.6 H, Chloride 112 H, Carbon Dioxide 19.0 L, Anion Gap 11, BUN 32 H, Creatinine 2.52 H, Estim Creat Clear Calc 17.29, Est GFR (MDRD) Af Amer 31 L, Est GFR (MDRD) Non-Af 26 L, BUN/Creatinine Ratio 12.7, G lucose 131 H, Calcium 9.0 Rhythm Strip Rhythm Strip: Sinus Rhythm Rate: 93 Ectopy: None Physical Exam Const alert, no apparent distress, average body habitus and well nourished Constitutional Narrative: Elderly, white male, lying in bed, currently oriented to self but not place or time, at bedside, does not appear toxic HEENT head/scalp atraumatic and moist oral mucous membranes HEENT Narrative: Dentition is poor Head and Scalp: normocephalic Resp normal respiratory effort, no retractions, no use of accessory muscles and clear to auscultation bilaterally Auscultation: Negative for rales, rhonchi or wheezes Cardio regular rate, regular rhythm, S1 normal heart sound, S2 normal heart sound, no murmurs, no rub, no gallops and no clicks GI normal to inspection, nondistended, normoactive bowel sounds, soft to palpation and non-tender Extremity no clubbing, cyanosis or edema Extremity Narrative: Pedal pulses are 2+, radial pulses are 2+ Neuro moves all extremities and no focal motor deficits Sensorium / Orientation: awake, alert and oriented to person; Negative for oriented to place or oriented to time Speech: speech normal Psych Psych Narrative: Very friendly, answers questions Assessment & Plan Assessment/Plan (1) Toxic encephalopathy: (2) Acute hyperkalemia: (3) Hallucination, visual: (4) Medication side effect: PLAN: Plan Toxic/metabolic encephalopathy on chronic dementia -Highly suspect related to adverse medication effects -Seems to be improving with Seroquel and Ativan removed -Imaging shows no change -Lab work is overall unremarkable -Continue home risperidone at low-dose -Continue home donepezil Acute on chronic debility -Will need placement at discharge -PT/OT is following -Case management/social work following for placement -Patient will need pre-CERT prior to discharge Hyperkalemia -Potassium is still elevated -Likely related to CKD -Kayexalate given -recheck in a.m. CKD stage IV -Baseline serum creatinine appears to run between 2.5 and 3 -Serum creatinine remains in baseline range -Will follow Tremors -No tremors noted at the time of my evaluation -Will discontinue donepezil and likely hold at discharge Osteoarthritis/gout -Discontinue indomethacin at discharge due to renal dysfunction at baseline -Continue home allopurinol Chronic anemia -Hemoglobin is stable -Monitor DM-2 -Continue home Lantus at at bedtime -Continue sliding scale -Cardiac/carb controlled diet Essential hypertension/CAD -Continue home metoprolol -Continue home aspirin Hypothyroidism -Continue levothyroxine -Check TSH in a.m. DVT prophylaxis -Continue subcu heparin twice daily CODE STATUS -DNR CCA with no intubation as confirmed on admission Charges/Coding Visit Charges Inpatient E&M: 80739 Subs Hosp L2
[2024-03-03] MEDS: RisperiDONE 0.5 MG Tablet PO (21:14)
[2024-03-03] MEDS: Insulin Glargine-YFGN 100 UNIT/ML Pen 10 UNIT SC (21:15)
[2024-03-03 21:22] VITALS: BP 148/80; PULSE 77; RESP 18; TEMP 35.9; O2SAT 100
[2024-03-03 21:29] LABS: Bedside Glucose 168 mg/dL (74-106)
[2024-03-04 02:32] VITALS: BP 128/75; PULSE 87; RESP 18; TEMP 36.5; O2SAT 100
[2024-03-04 04:56] VITALS: BP 136/75; PULSE 87; RESP 18; TEMP 36.7; O2SAT 100
[2024-03-04] MEDS: Levothyroxine 100 MCG Tablet PO (05:13)
[2024-03-04 06:36] LABS: Absolute Lymphocyte Count 0.78 X10^3/uL (0.83-4.51); Absolute Neutrophil Count 3.3 X10^3/uL (2.0-7.7); Basophil# 0.01 X10^3/uL; Basophil% 0.2 % (0-1); Eosinophil# 0.09 X10^3/uL; Eosinophils% 1.8 % (0-5); Hemoglobin 11.2 g/dL (13.0-16.5); Lymphocyte # 0.78 X10^3/ul (0.83-4.51); Lymphocyte % 15.3 % (19-41); Mean Corp Hgb Conc 32.9 g/dL (32-36); Mean Corpuscular Volume 94.2 fL (80-94); Mean Platelet Vol. 12.5 fl (6.2-12.0); Monocyte# 0.88 X10^3/uL; Monocyte% 17.2 % (0-10); NRBC Flagged by Analyzer 0 % (0-5); Neutrophil % 64.5 % (47-70); POSITIVE MORPHOLOGY YES; Platelet Count 100 K/mm3 (150-450); RBC Distribution Width CV 14.6 % (11.6-14.6); RBC Distribution Width SD 49.9 fl (35.1-43.9); Red Blood Count 3.61 M/mm3 (4.6-6.2); White Blood Count 5.1 K/mm3 (4.4-11.0)
[2024-03-04 07:04] LABS: Differential Indicated SCAN CRITERIA MET
[2024-03-04 07:23] LABS: Anion Gap 5 (5-15); BUN 29 mg/dL (7-18); BUN/Creat Ratio 12.4 RATIO (10-20); Chloride 114 mmol/L (98-107); Creatinine, Serum 2.33 mg/dL (0.70-1.30); EST Glomerular Filtration Rate 28 mL/min (>60); Est Glom Filt Rate - Afr Amer 34 mL/min (>60); Glucose 132 mg/dL (74-106); Magnesium 1.8 mg/dL (1.6-2.6); Phosphorus 4.1 mg/dL (2.5-4.9); Potassium 4.9 mmol/L (3.5-5.1); Sodium Level 141 mmol/L (136-145)
[2024-03-04 08:50] VITALS: BP 132/95; PULSE 87; RESP 16; TEMP 36.2; O2SAT 92
[2024-03-04 08:53] VITALS: BP 132/95; PULSE 87
[2024-03-04] MEDS: Allopurinol 100 MG Tablet PO (08:53)
[2024-03-04] MEDS: Aspirin 81 MG TAB.CHEW PO (08:53)
[2024-03-04] MEDS: Metoprolol(XL)Succ 50 MG Tablet PO (08:53)
[2024-03-04] MEDS: Heparin Injection (Vial) 5,000 UNIT/ML VIAL 5000 UNIT SC ×2 (08:54→20:03)
[2024-03-04 09:24] LABS: T4 Free Direct 0.91 ng/dL (0.76-1.46)
--- NOTE | 2024-03-04 10:21 | CASEMGMT ---
Addendum entered by Dixie Grady 03/04/24 13:26: [facility] has accepted. Dixie Grady DC Planning Asst. Original Note: Discharge Planning Referral sent to [facility] via [facility]. Dixie Grady DC Planning Asst.
--- NOTE | 2024-03-04 10:45 | CASEMGMT ---
Addendum entered by Dixie Grady 03/05/24 09:53: FOC is [facility]. Both snfs updated. Dixie Grady DC Planning Asst. Addendum entered by Dixie Grady 03/05/24 09:34: [facility] has accepted. Both [facility] and [facility] updated that family has not yet chosen foc. Dixie Grady DC Planning Asst. Original Note: Discharge Planning Referral sent to [facility] via [facility]. Dixie Grady DC Planning Asst.
--- NOTE | 2024-03-04 10:50 | CASEMGMT ---
Social Work- SW met with pt and to discuss preferences at d/c. SW provided education on process and d/c planning. Pt selected [facility] and [facility] as [facility]. DCA advised that referrals can be made. FELIPE Arevalo
[2024-03-04 14:00] VITALS: BP 105/70; PULSE 55; RESP 16; TEMP 36.2; O2SAT 92
--- NOTE | 2024-03-04 16:48 | PCM.PN.HOSP ---
Reason for Visit Reason for Visit: Altered mental status Subjective Subjective states he is doing much better today. States he is back to his baseline. Is concerned that he may not functionally improve enough to come home. I told her that I am hoping he does and time will tell as he gets more rehab but there is no definitive answer at this time. We did discuss the use of risperidone at night rather than the Seroquel and the Ativan to help with his sundowning and sleep at night as it is difficult for her to get sleep at night if he is wandering. Objective Data Objective Data Vital Signs: Vital Signs Temp Pulse Resp BP Pulse Ox O2 Del Method 97.2 F L 55 L 16 105/70 92 Room Air 03/04/24 14:00 03/04/24 14:00 03/04/24 14:00 03/04/24 14:00 03/04/24 14:00 03/04/24 14:00 Oxygen Delivery Method Room Air Weight: 67.585 kg Body Mass Index (BMI) 24.7 Intake & Output: Intake and Output for Last 24 Hours 03/02/24 03/03/24 03/04/24 23:59 23:59 23:59 Intake Total 1000 / 1000 100 / 100 970 / 970 Output Total 1000 / 1450 750 / 750 700 / 700 Balance 0 / -450 -650 / -650 270 / 270 Lab / Micro Data 03/04/24 05:58 03/04/24 05:58 Labs: Laboratory Results - last 24 hr 03/03/24 21:13: POC Glucose 168 H 03/04/24 05:58: WBC 5.1, RBC 3.61 L, Hgb 11.2 L, Hct 34.0 L, MCV 94.2 H, MCH 31.0, MCHC 32.9, RDW Std Deviation 49.9 H, RDW Coeff of Sea 14.6, Plt Count 100 L, MPV 12.5 H, Immature Gran % (Auto) 1.000 H, Neut % (Auto) 64.5, Lymph % (Auto) 15.3 L, [place] % (Auto) 17.2 H, Eos % (Auto) 1.8, Baso % (Auto) 0.2, Absolute Neuts (auto) 3.3, Absolute Lymphs (auto) 0.78 L, Nucleated RBC % 0, Sodium 141, Potassium 4.9, Chloride 114 H, Carbon Dioxide 22.0, Anion Gap 5, BUN 29 H, Creatinine 2.33 H, Estim Creat Clear Calc 18.70, Est GFR (MDRD) Af Amer 34 L, Est GFR (MDRD) Non-Af 28 L, BUN/Creatinine Ratio 12.4, Glucose 132 H, Calcium 9.0, Phosphorus 4.1, Magnesium 1.8, TSH 16.800 H, Free T4 0.91 Rhythm Strip Rhythm Strip: Sinus Rhythm Rate: 93 Ectopy: None Physical Exam Const alert, no apparent distress, average body habitus, healthy appearing and well nourished; Negative for oriented x3 Constitutional Narrative: Elderly, white male, sitting up in a chair at the bedside, at the bedside, appears comfortable, nontoxic, oriented to self only which states is his baseline General Appearance: comfortable HEENT normocephalic, head/scalp atraumatic, hearing grossly normal bilaterally and moist oral mucous membranes HEENT Narrative: Moderate hearing loss, Mallampati 2 Resp normal respiratory effort, normal air movement, no retractions, no use of accessory muscles and clear to auscultation bilaterally Auscultation: Negative for rales, rhonchi or wheezes Cardio regular rate, regular rhythm, S1 normal heart sound, S2 normal heart sound, no murmurs, no rub, no gallops and no clicks GI normal to inspection, nondistended, normoactive bowel sounds, soft to palpation and non-tender Extremity no clubbing, cyanosis or edema Neuro moves all extremities and no focal motor deficits Sensorium / Orientation: awake, alert and oriented to person; Negative for oriented to place or oriented to time Speech: speech normal Psych Psych Narrative: Pleasantly confused Assessment & Plan Assessment/Plan (1) Toxic encephalopathy: (2) Acute hyperkalemia: (3) Hallucination, visual: (4) Medication side effect: PLAN: Plan Toxic/metabolic encephalopathy on chronic dementia -Highly suspect related to adverse medication effects -Resolved with Seroquel and Ativan discontinuation and will remained discontinued at discharge -Lab work remained stable -Continue home risperidone at low-dose Acute on chronic debility -Placement pending with acceptance and awaiting pre-CERT -PT/OT is following -Case management/social work following for placement Hyperkalemia -Resolved -Will repeat in a.m. to ensure stability CKD stage IV -Baseline serum creatinine appears to run between 2.5 and 3 -Serum creatinine remains in baseline range and actually down to 2.33 today -Will follow Tremors -No tremors noted at the time of my evaluation -Continue to hold donepezil and will discontinue at discharge Osteoarthritis/gout -Discontinue indomethacin at discharge due to renal dysfunction at baseline -Continue home allopurinol Chronic anemia -Hemoglobin is stable -Monitor DM-2 -Continue home Lantus at at bedtime -Continue sliding scale -Cardiac/carb controlled diet Essential hypertension/CAD -Continue home metoprolol -Continue home aspirin Hypothyroidism -Continue levothyroxine -TSH was elevated at 16 however free T4 is unremarkable DVT prophylaxis -Continue subcu heparin twice daily CODE STATUS -DNR CCA with no intubation as confirmed on admission Charges/Coding Visit Charges Inpatient E&M: 58145 Subs Hosp L2
[2024-03-04 20:00] VITALS: BP 133/68; PULSE 64; RESP 18; TEMP 36.1; O2SAT 100
[2024-03-04] MEDS: Insulin Glargine-YFGN 100 UNIT/ML Pen 10 UNIT SC (20:02)
[2024-03-04] MEDS: RisperiDONE 0.5 MG Tablet PO (20:03)
[2024-03-04 20:27] LABS: Bedside Glucose 131 mg/dL (74-106)
[2024-03-05 04:30] VITALS: BP 110/82; PULSE 69; RESP 18; TEMP 36.5; O2SAT 98
[2024-03-05] MEDS: Levothyroxine 100 MCG Tablet PO (04:30)
[2024-03-05 07:23] LABS: Anion Gap 4 (5-15); BUN 28 mg/dL (7-18); BUN/Creat Ratio 12.4 RATIO (10-20); Calcium,Total 8.8 mg/dL (8.5-10.1); Chloride 113 mmol/L (98-107); Creatinine, Serum 2.26 mg/dL (0.70-1.30); EST Glomerular Filtration Rate 29 mL/min (>60); Est Glom Filt Rate - Afr Amer 35 mL/min (>60); Estimated Creatinine Clearance 19.28 ml/min; Glucose 87 mg/dL (74-106); Potassium 4.9 mmol/L (3.5-5.1); Sodium Level 139 mmol/L (136-145)
--- NOTE | 2024-03-05 07:33 | PCM.PN.HOSP ---
Reason for Visit Reason for Visit: Diagnoses Hyperkalemia (03/02/24) Unspecified toxic encephalopathy (03/02/24) Visual hallucinations (03/02/24) Weakness (03/02/24) Unspecified adverse effect of drug or medicament, initial encounter (03/02/24) Personal history of other mental and behavioral disorders (03/02/24) Objective Data Objective Data Vital Signs: Vital Signs Temp Pulse Resp BP Pulse Ox O2 Del Method 97 F L 64 18 133/68 H 100 Room Air 03/04/24 20:00 03/04/24 20:00 03/04/24 20:00 03/04/24 20:00 03/04/24 20:00 03/04/24 20:00 Oxygen Delivery Method Room Air Weight: 67.585 kg Body Mass Index (BMI) 24.7 Intake & Output: Intake and Output for Last 24 Hours 03/03/24 03/04/24 03/05/24 23:59 23:59 23:59 Intake Total 100 / 100 970 / 970 Output Total 750 / 750 700 / 700 Balance -650 / -650 270 / 270 Lab / Micro Data 03/04/24 05:58 03/05/24 05:47 Labs: Laboratory Results - last 24 hr 03/04/24 05:58: Free T4 0.91 03/04/24 19:59: POC Glucose 131 H 03/05/24 05:47: Sodium 139, Potassium 4.9, Chloride 113 H, Carbon Dioxide 22.0, Anion Gap 4 L, BUN 28 H, Creatinine 2.26 H, Estim Creat Clear Calc 19.28, Est GFR (MDRD) Af Amer 35 L, Est GFR (MDRD) Non-Af 29 L, BUN/Creatinine Ratio 12.4, Glucose 87, Calcium 8.8 Rhythm Strip Rhythm Strip: Sinus Rhythm Rate: 93 Ectopy: None
[2024-03-05 07:35] VITALS: O2SAT 98
[2024-03-05 07:51] VITALS: BP 130/81; PULSE 85; RESP 18; TEMP 36.3; O2SAT 98
[2024-03-05] MEDS: Aspirin 81 MG TAB.CHEW PO (08:15)
[2024-03-05] MEDS: Acetaminophen 325 MG Tablet 650 MG PO (09:11)
--- NOTE | 2024-03-05 09:46 | CASEMGMT ---
Addendum entered by Nancy Miller 03/05/24 10:27: Social Work- DARREN sent documentation to [facility] for authorization. Physician states pt is medically ready. FELIPE Arevalo Original Note: Social Work- SW wcalled pt and advised that both [facility] and [facility] can accept referral. Pt chose [facility]. DCA advised. FELIPE Arevalo
[2024-03-05 09:55] VITALS: PULSE 85
[2024-03-05] MEDS: Allopurinol 100 MG Tablet PO (09:55)
[2024-03-05] MEDS: Heparin Injection (Vial) 5,000 UNIT/ML VIAL 5000 UNIT SC (09:55)
[2024-03-05] MEDS: Metoprolol(XL)Succ 50 MG Tablet PO (09:55)
--- NOTE | 2024-03-05 11:03 | CASEMGMT ---
Social Work- SW spoke with Megan at [facility] who provided authorization. authorization #: [id number] valid:03/05-03/07. Physician, pt and pt and [facility] advised. FELIPE Arevalo
--- NOTE | 2024-03-05 13:05 | PCM.TXEXTCAR ---
Diet Diet Order/Speech Therapy: 03/03/24 13:46 Diet: Regular - General Food consistency:: Soft & Bite Sized Liquid Consistency:: Regular/Thin Diet Comments: SWALLOW GUIDELINES POSTED; 1:1 SUPERVISION FOR MEALS Routine Orders/Code Status Suppository Frequency: Daily PRN O2 Frequency: PRN Keep PO Greater than or Equal to (%): 89 Routine Lab Work: CBC (1 week) and BMP (1 week) Code Status: DNRCC-A (no EET) Wound(s) Right arm: Wound Type: Skin Tear R big toe: Wound Type: Abrasion Suggestions for Active Care Change Position every (hours): 2 Hours to sit in a chair: 2 Times a day to sit in chair: 2 Therapies Weight Bearing: Full weight bearing Physical Therapy: Eval and Treat Occupational Therapy: Eval and Treat Speech Therapy: Eval and Treat Problem/Diagnosis (1) Toxic encephalopathy: Status: Acute Code(s): G92.9 - Unspecified toxic encephalopathy (2) Acute hyperkalemia: Status: Acute Code(s): E87.5 - Hyperkalemia (3) Hallucination, visual: Status: Acute Code(s): R44.1 - Visual hallucinations (4) Medication side effect: Status: Acute Code(s): T88.7XXA - Unspecified adverse effect of drug or medicament, initial encounter Allergies/Procedures Done in Hospital Allergies clopidogrel bisulfate (From Plavix) Allergy (Verified 03/02/24 09:38) Rash cyclobenzaprine (Cyclobenzaprine) Allergy (Verified 03/02/24 09:38) Rash fluoxetine HCl (From Prozac) Allergy (Verified 03/02/24 09:38) Rash Procedures: EKG and - (Chest x-ray/CT brain) Type of Care/Length of Stay Estimated LOS: Convalescent Care Less Than 30 days Type of Care Needed: Skilled Rehab Potential: Fair Prognosis: Fair Additional Orders/Day of Discharge Day of Discharge: 03/05/24 Dietary and Speech Recommendations Dietitian Recommendations/Changes: Continue Regular diet with Soft and Bite sized modification and thin liquids per VEGETABLE LOADER to manage blood sugars. If blood sugars become elevated, recommend CCD diet. Discharge Plan Admission Admit Date/Time: 03/02/24 12:01 Attending Provider: Mery Mitchell Primary Care Provider: Mike Salas Consulting Providers: Alok Tenorio Discharge Orders/Prescriptions Prescriptions: No Action nitroglycerin 0.4 mg tablet, sublingual 0.4 mg SUBLINGUAL Q5M PRN (Reason: Chest Pain) Qty: 25 3RF allopurinol 300 mg tablet 300 mg PO QDAY levothyroxine 100 mcg tablet 100 mcg PO DAILY aspirin 81 mg Tablet,Chewable 81 mg PO BREAKFAST Qty: 0 0RF donepezil 10 mg tablet 10 mg PO DAILY lorazepam [Ativan] 0.5 mg tablet 0.5 mg PO TID PRN (Reason: tremor(s)) 5 Days Qty: 15 0RF insulin lispro [Humalog KwikPen Insulin] 100 unit/mL insulin pen See Protocol subcut TIDCM Protocol: 6. Sliding Scale Insulin Custom Condition: mg/dl range Dose/Route: Number of Units Protocol Text: Custom Sliding Scale Patient Comments: FAMILY KNOWS THIS IS A SLIDING SCALE AND STARTS TAKING IF BS IS OVER 150 BUT DOESNT HAVE SLIDING SCALE WITH THEM. indomethacin 25 mg capsule 25 mg PO TID PRN (Reason: JOINT PAIN) quetiapine 25 mg tablet 25 mg PO QHS insulin glargine-yfgn 100 unit/mL (3 mL) Insulin Pen 10 unit subcut QHS metoprolol succinate 50 mg tablet extended release 24 hr See Rx Instructions .ROUTE .COMPLEX Qty: 90 3RF Dose Instruction: TAKE 1 TABLET BY MOUTH ONCE DAILY FOR THE HEART. Rx Instructions: TAKE 1 TABLET BY MOUTH ONCE DAILY FOR THE HEART. Referrals / Follow Up: Mike Salas MD [Primary Care Provider] -
--- NOTE | 2024-03-05 13:16 | PCM.DC.SUM ---
Providers Date of Admission: 03/02/24 Date of Discharge: 03/05/24 Primary Care Physician: Dr. Mike Salas MD Reason For Visit: ACUTE ENCEPHALOPATHY WITH WEAKNESS Diagnosis Discharge Diagnosis (1) Toxic encephalopathy: Status: Acute Code(s): G92.9 - Unspecified toxic encephalopathy (2) Acute hyperkalemia: Status: Acute Code(s): E87.5 - Hyperkalemia (3) Hallucination, visual: Status: Acute Code(s): R44.1 - Visual hallucinations (4) Medication side effect: Status: Acute Code(s): T88.7XXA - Unspecified adverse effect of drug or medicament, initial encounter Medications at Discharge Home Medications nitroglycerin 0.4 mg sublingual tablet 0.4 mg sublingual Q5M PRN Chest Pain #25 tabs 11/06/18 levothyroxine 100 mcg tablet 100 mcg PO DAILY THYROID 04/12/22 metoprolol succinate 50 mg tablet,extended release 24 hr See Rx Instructions .Route .COMPLEX #90 TABLETS 10/30/22 aspirin 81 mg chewable tablet 81 mg PO BREAKFAST #0 tabs 03/08/23 allopurinol 300 mg tablet 300 mg PO QDAY 09/14/23 insulin glargine-yfgn 100 unit/mL (3 mL) subcutaneous pen 10 unit subcut QHS 03/02/24 acetaminophen 325 mg tablet 650 mg (2 x 325 mg) PO Q6H PRN PRN Pain 1-10 Or Fever>100.7 #0 tabs 03/05/24 carbidopa 10 mg-levodopa 100 mg tablet 1 tab PO TIDAC #0 tabs 03/05/24 insulin lispro 100 unit/mL subcutaneous pen (Humalog KwikPen (U-100) Insulin) See Protocol subcut TIDCM #15 mL 03/05/24 risperidone 0.25 mg tablet 0.25 mg PO QHS #0 tabs 03/05/24 Hospital Course Operations None Procedures EKG and - (Chest x-ray/CT brain) Summary of Care Provided Minutes Spent on Discharge: 38 Hospital Course: Mr. Walden is an 88-year-old male with a history of dementia but typically self and sometimes place but not time typically who presented to the emergency department at [facility] on 03/03/2024 secondary to worsening confusion. He lives at home with his and that his reported that over the 3 days prior to presentation he had been having worsening confusion from his baseline. His sleep habits had been poor and he was having visual hallucinations. She is his primary caregiver at baseline and had not been able to do much of anything for himself so she brought him in for further evaluation. Evidently, he was prescribed Ativan 0.5 mg 3 times daily as needed by his PCP for tremors as well as Seroquel 25 mg at at bedtime due to his difficulty sleeping she also reported that his tremors have been worse despite his Ativan. She decided to give him extra doses of the Ativan for this. Vital signs on presentation were unremarkable. Labs were at baseline when compared to previous. 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 It was highly suspected at the time of admission he was confused due to increased Ativan usage in combination with Seroquel. These medications were discontinued and he was placed on low-dose risperidone at bedtime to help with any sundowning that he may suffer and continued monitoring was recommended. He was also evaluated by physical and Occupational Therapy due to difficulty with ADLs and IADLs at home under his current status. His mental status cleared slowly with discontinuation of the Seroquel and Ativan. His TSH was found to be elevated however his free T4 was normal so I do recommend that her repeat TSH be obtained in 6 to 8 weeks. We did start him on low-dose risperidone in the evening and low-dose Sinemet for his tremor. I did discuss with his that his tremor may not ever go away and may be associated with his progressing dementia. She did admit to the fact that she would not be able to take him home at this time and therapy did see him and indicate that he would benefit from ongoing rehab at the time of discharge. We will able to obtain pre-CERT for him to go to [facility] on 03/05/2024. He will continue all of his home medications except the lorazepam, Seroquel and plan is to hold the donepezil in case this could be having some effect on tremor. We will also discontinue indomethacin with his ongoing renal dysfunction at baseline. We have asked that he follow-up with his primary care physician within 1 to 2 weeks after discharge from [facility] facility. Discharge diagnoses: Toxic/metabolic encephalopathy Adverse medication effect Tremor Acute on chronic debility Hyperkalemia-resolved CKD stage IV Dementia-type unknown Osteoarthritis Gout Chronic anemia DM-2 Essential hypertension CAD Hypothyroidism Physical Exam Const alert, no apparent distress, average body habitus, healthy appearing and well nourished; Negative for oriented x3 or no limitations Constitutional Narrative: Elderly, white male, sitting up in a chair at the bedside, at the bedside, appears comfortable, nontoxic, oriented to self only which states is his baseline General Appearance: cooperative, comfortable, well kempt and well developed Orientation / Consciousness: awake and oriented to person HEENT normocephalic, head/scalp atraumatic, hearing grossly normal bilaterally and moist oral mucous membranes HEENT Narrative: Dentition is poor, Mallampati is 2, no thrush Eyes PERRL, EOMs intact bilaterally and conjunctivae normal Eyes Narrative: No scleral icterus Neck no lymphadenopathy and supple Neck Narrative: Trachea midline, no thyroid enlargement Resp normal respiratory effort, normal air movement, no retractions, no use of accessory muscles and clear to auscultation bilaterally Auscultation: Negative for rales, rhonchi or wheezes Cardio regular rate, regular rhythm, S1 normal heart sound, S2 normal heart sound, no murmurs, no rub, no gallops and no clicks GI normal to inspection, nondistended, normoactive bowel sounds, soft to palpation and non-tender Extremity no clubbing, cyanosis or edema Extremity Narrative: Pedal pulses are 2+, radial pulses are 2+ Skin no rashes or lesions noted, no wounds and no jaundice Neuro moves all extremities and no focal motor deficits Neuro Narrative: Tremor noted Sensorium / Orientation: awake, alert and oriented to person; Negative for oriented to place or oriented to time Speech: speech normal Psych Psych Narrative: Pleasantly confused Weight / BMI Weight Weight: 67.585 kg Body Mass Index (BMI) 24.7 ABG / Lab / Microbiology Data 03/04/24 05:58 03/05/24 05:47 Laboratory: Laboratory Results - last 24 hr 03/04/24 19:59: POC Glucose 131 H 03/05/24 05:47: Sodium 139, Potassium 4.9, Chloride 113 H, Carbon Dioxide 22.0, Anion Gap 4 L, BUN 28 H, Creatinine 2.26 H, Estim Creat Clear Calc 19.28, Est GFR (MDRD) Af Amer 35 L, Est GFR (MDRD) Non-Af 29 L, BUN/Creatinine Ratio 12.4, Glucose 87, Calcium 8.8 Meaningful Use Info Meaningful Use Meaningful Use Diagnoses (Choose all that apply): None applicable Ischemic Stroke Statin Dosing Therapy Reference: STATIN DOSE THERAPY REFERENCE: * Patients > 75 years receive moderate or high dose statin therapy. * Patients 75 years or YOUNGER should receive HIGH intensity statin dose unless contraindicated. You will be required to document reason for non-treatment if statin daily dose does not meet guidelines. HIGH DOSE STATIN THERAPY DAILY Atorvastatin > than or = to 40 mg Rosuvastatin > than or = to 20 mg Amlodipine + Atorvastatin > than or = to 2.5/40 mg Ezetimibe + Simvastatin 10/80 mg Simvastatin 80mg Discharge Plan Admission Admit Date/Time: 03/02/24 12:01 Primary Reason for Your Visit: Altered mental status Attending Provider: Mery Mitchell Primary Care Provider: iMke Salas Consulting Providers: Alok Tenorio Discharge Orders/Prescriptions Prescriptions: New acetaminophen 325 mg Tablet 650 mg PO Q6H PRN PRN (Reason: Pain 1-10 Or Fever>100.7) Qty: 0 0RF risperidone 0.25 mg Tablet 0.25 mg PO QHS Qty: 0 0RF carbidopa-levodopa 10-100 mg Tablet 1 tab PO TIDAC Qty: 0 0RF Continued nitroglycerin 0.4 mg tablet, sublingual 0.4 mg SUBLINGUAL Q5M PRN (Reason: Chest Pain) Qty: 25 3RF levothyroxine 100 mcg tablet 100 mcg PO DAILY insulin glargine-yfgn 100 unit/mL (3 mL) Insulin Pen 10 unit subcut QHS insulin lispro [Humalog KwikPen Insulin] 100 unit/mL insulin pen See Protocol subcut TIDCM Qty: 15 0RF Protocol: 3. Sliding Scale Insulin Med Dosing Condition: 150-189 mg/dl = 1 unit Condition: 190-229 mg/dl = 2 units Condition: 230-269 mg/dl = 3 units Condition: 270-309 mg/dl = 4 units Condition: 310-349 mg/dl = 5 units Condition: 350-399 mg/dl = 6 units Condition: 400-449 mg/dl = 7 units Condition: Greater than 449 call physician Protocol Text: Suggested for: - Patients on Total Daily Insulin Dose of 37-55 units - Obese, infected, or steroid patients MEDIUM DOSING ALGORITHIM Patient Comments: FAMILY KNOWS THIS IS A SLIDING SCALE AND STARTS TAKING IF BS IS OVER 150 BUT DOESNT HAVE SLIDING SCALE WITH THEM. metoprolol succinate 50 mg tablet extended release 24 hr See Rx Instructions .ROUTE .COMPLEX Qty: 90 3RF Dose Instruction: TAKE 1 TABLET BY MOUTH ONCE DAILY FOR THE HEART. Rx Instructions: TAKE 1 TABLET BY MOUTH ONCE DAILY FOR THE HEART. Discontinued donepezil 10 mg tablet 10 mg PO DAILY lorazepam [Ativan] 0.5 mg tablet 0.5 mg PO TID PRN (Reason: tremor(s)) 5 Days Qty: 15 0RF indomethacin 25 mg capsule 25 mg PO TID PRN (Reason: JOINT PAIN) quetiapine 25 mg tablet 25 mg PO QHS No Action allopurinol 300 mg tablet 300 mg PO QDAY aspirin 81 mg Tablet,Chewable 81 mg PO BREAKFAST Qty: 0 0RF Referrals / Follow Up: Mike Salas MD [Primary Care Provider] - Disposition Disposition (needs filled in before D/C Order can be placed): Home, Self Care Charges/Coding Visit Charges Inpatient E&M: 05305 SNF Disch >30 Min
--- NOTE | 2024-03-05 14:48 | CHAPLAIN ---
Type of Pastoral Visit _x__ Initial Visit ___ Follow-up Visit ___ On-call Visit ___ General Patient Visit ___ Spiritual Assessment ___ Family Conference ___ Bereavement ___ Rapid Response ___ Code Blue ___ Other (describe below) Pastoral Care Referral From _x__ Patient ___ Family ___ Nurse ___ Physician ___ Net Developer Architect ___ Patient Case Manager ___ Other (describe below) Sacrament/Intervention _x__ Active listening ___ Anointing ___ Pentecostalism ___ Bereavement ___ Communion ___ Blanche exploration ___ ___ Life review _x__ Prayer ___ Reconciliation ___ Sacrament of Sick _x__ Supportive presence ___ Wedding ___ Other (describe below) Pastoral Comments patient is sitting up in the chair and is welcoming; pt is able to respond to questions and does so appropriately but haltingly; pt is given time to get his words out and is given affirmation that he is communicating his thoughts and feelings; pt wants to be at home but admits need to be at hospital for medicine changes; asked how he is handling his situation the patient responds best not to worry, what good does it do?
--- NOTE | 2024-03-05 15:14 | CASEMGMT ---
Social Work Precert has been obtained.? Physician updated and pt is ready for discharge today.? 7000 convalescent form completed in [facility]. SW met with pt and they are agreeable to discharge plan as stated above.? DCA notified of discharge. Disposition: [facility], skilled level of care under convalescent stay. FELIPE Arevalo
[2024-03-05 15:57] VITALS: BP 124/70; PULSE 59; RESP 16; TEMP 36.7; O2SAT 99
--- NOTE | 2024-03-05 15:59 | CASEMGMT ---
Discharge Planning Discharge orders, signed med list, and transport time sent to [facility] via [facility]. Physicians will transport patient by cot at 6:15. Nursing, SW, and patients updated. Dixie Grady DC Planning Asst.
[2024-03-05] MEDS: Carbidopa/Levodopa 10/100 Tablet PO (16:00)
== END 2024-03-05 18:25 | disposition skilled nursing facility (03) | DRG 92 ==
LOC: ED 11:53 → MS3 12:40
PROVIDERS: Admitting Provider Hospitalist; Emergency Provider Emergency Medicine; PCP Family Medicine; Visit Provider Internal Medicine
DX: G92.8 Other toxic encephalopathy (principal); N18.4 Chronic kidney disease, stage 4 (severe); E11.22 Type 2 diabetes mellitus with diabetic chronic kidney disease; D64.9 Anemia, unspecified; E03.9 Hypothyroidism, unspecified; E78.00 Pure hypercholesterolemia, unspecified; F03.90 Unspecified dementia, unspecified severity, without behavioral disturbance, psychotic disturbance, mood disturbance, and anxiety; I12.9 Hypertensive chronic kidney disease with stage 1 through stage 4 chronic kidney disease, or unspecified chronic kidney disease; R44.1 Visual hallucinations; Z79.4 Long term (current) use of insulin; E87.5 Hyperkalemia; I25.10 Atherosclerotic heart disease of native coronary artery without angina pectoris; M19.90 Unspecified osteoarthritis, unspecified site; M10.9 Gout, unspecified; R25.1 Tremor, unspecified; T42.4X5A Adverse effect of benzodiazepines, initial encounter; T43.595A Adverse effect of other antipsychotics and neuroleptics, initial encounter; R53.1 Weakness; Z79.1 Long term (current) use of non-steroidal anti-inflammatories (NSAID); Z66 Do not resuscitate; Z79.82 Long term (current) use of aspirin; Z79.890 Hormone replacement therapy; Z79.899 Other long term (current) drug therapy; Z95.5 Presence of coronary angioplasty implant and graft; Z95.1 Presence of aortocoronary bypass graft
CPT/HCPCS: 36415; 70450; 71045; 80048; 80053; 81001; 82962; 83735; 84100; 84439; 84443; 85025; 85027; 92526; 92610; 93005; 97110; 97162; 97166; 97530; 97535; 99284; J7030; A4216

== ENCOUNTER 2024-03-30 12:32 | Emergency (ER) | payer MEDICARE, SELFPAY ==
[2024-03-30 12:34] VITALS: BP 86/54; PULSE 79; RESP 22; TEMP 35.6; O2SAT 99; BMI 27.4
[2024-03-30 12:42] VITALS: BP 86/54; PULSE 75; RESP 16; TEMP 35.6; O2SAT 98
--- NOTE | 2024-03-30 13:04 | CT_ITS ---
INDICATION: Altered mental status EXAMINATION: CT BRAIN - CT Head or Brain W/O Contrast Injection TECHNIQUE: Multiple axial images were obtained of the head without intravenous contrast. The protocol utilizes one or more of the following dose reduction techniques: automated exposure control, adjustment of mA and/or kV according to patient size,and/or use of iterative reconstruction technique. IV Contrast dosage and agent: None. RADIATION DOSAGE (If Supplied By Facility): CTDIvol = ( 44.99 ) mGy, DLP = ( 1592.22 ) mGycm COMPARISON: Prior study dated: 03/02/2024 FINDINGS: BRAIN PARENCHYMA: No intra- or extra-axial hemorrhage. 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 Periventricular deep white matter changes likely due to chronic microvascular disease. Significant artifacts. No intracranial mass or mass effect. There is otherwise preservation of the daniel/white matter interface. Posterior fossa structures are unremarkable. Atherosclerotic calcifications of the cavernous internal carotid arteries. CSF SPACES: Appropriate for age. No hydrocephalus. Basal cisterns are patent. CALVARIUM, SKULL BASE, PARANASAL SINUSES AND MASTOID AIR CELLS: Clear. No discrete lytic or blastic abnormalities. ORBITS: Both globes, extraocular muscles, optic nerves and retrobulbar fat appear unremarkable. CT/Brain/Head without Contrast IMPRESSION: No significant change. No acute intracranial process. Chronic changes as described above. Electronically Signed: Darren Gonzalez MD at 14:15 EDT ,
--- NOTE | 2024-03-30 13:05 | EDS_ITS ---
HPI History of Present Illness Chief Complaint: Unresponsive Narrative Narrative: Chief complaint and HPI: Altered mental status. 88-year-old male with history of dementia, Parkinson's, hypothyroidism presents for evaluation of altered mental status. Patient resides at a care facility. Per patient has had increased delirium the past 2 days. She was feeding him at the care facility when he had a 10-minute episode of unresponsiveness. She states he was staring off in space and started to drool from the mouth. She states she may have saw a facial droop but it has since resolved. She states the patient has a history of this in the past in which she had a UTI at that time. She denies any fever, cough, shortness of breath abdominal pain, nausea, vomiting, diarrhea, dysuria that she knows of. Patient is currently alert and oriented to self only. He does not know his birthday which he usually does. He is talking nonsense. Patient did receive an extra dose of his risperidone at lunch today for his delirium and insomnia. Review of systems: See HPI Medications: As listed on the chart Allergies: As listed on the chart PFSH: Per chart Vital signs: As listed on the chart. Reviewed. Physical exam: Gen: Alert, oriented to self only, NAD Head: Normocephalic, atraumatic Eyes: No sclera icterus, conjunctiva clear, PERRL but pinpoint ENT: Dry mucous membranes Neck: Trachea midline, No JVD CV: RRR, no murmurs, no peripheral edema Resp: Lungs CTA BL, no w/r/c GI: Abd soft, non-distended, non-tender, no r/r/g Musc: Moves all extremities, no deformity Skin: Warm, dry Neuro: Alert, grossly intact [facility] Medical History Acute confusion Chronic renal insufficiency History of diabetes mellitus History of hypertension Dementia Polymyalgia rheumatica Cricopharyngeal dysphagia Wears glasses Thyroid disease Walker as ambulation aid Ambulates with cane Gout Seizures Gastric reflux Sleep apnea Hypertension PONV (postoperative nausea and vomiting) Glucosuria Pure hypercholesterolemia Presence of stent in coronary artery (~10/31/10) Hypothyroidism Essential hypertension Hyperlipidemia Type II diabetes mellitus Coronary atherosclerosis of [place] coronary artery Chronic kidney disease Home Medications ?Medication ?Instructions ?Recorded ?Last Taken ?Type nitroglycerin 0.4 mg sublingual 0.4 mg sublingual Q5M PRN Chest 11/06/18 Unknown Rx tablet Pain #25 tabs insulin glargine-yfgn 100 unit/mL 10 unit subcut QHS 03/02/24 02/29/24 History (3 mL) subcutaneous pen carbidopa 10 mg-levodopa 100 mg 1 tab PO TIDAC #0 tabs 03/05/24 Unknown Rx tablet acetaminophen 325 mg tablet 650 mg PO Q6H PRN Pain 1-10 Or 03/30/24 Unknown History Fever>100.7 aspirin 81 mg chewable tablet 81 mg PO DAILY 03/30/24 Unknown History donepezil 10 mg tablet 10 mg PO DAILY 03/30/24 Unknown History food supplemt, lactose-reduced 120 ml PO BID 03/30/24 Unknown History (Ensure oral liquid) indomethacin 25 mg capsule 25 mg PO TID PRN JOINT PAIN 03/30/24 Unknown History insulin lispro 100 unit/mL 1 sliding scale dose subcut TIDCM 03/30/24 Unknown History subcutaneous pen (Humalog KwikPen (U-100) Insulin) levothyroxine 112 mcg tablet 112 mcg PO DAILY 03/30/24 Unknown History lorazepam 0.5 mg tablet 0.5 mg PO TID PRN TREMORS 03/30/24 Unknown History melatonin 3 mg tablet 3 mg PO QHS 03/30/24 Unknown History metoprolol succinate 50 mg 50 mg PO DAILY HEART 03/30/24 Unknown History tablet,extended release 24 hr pantoprazole 40 mg tablet,delayed 40 mg PO DAILY 03/30/24 Unknown History release quetiapine 25 mg tablet 25 mg PO QHS 03/30/24 Unknown History risperidone 0.5 mg tablet 0.5 mg PO BID 03/30/24 Unknown History (Risperdal) Allergy/AdvReac Type Severity Reaction Status Date / Time clopidogrel bisulfate (From Allergy Rash Verified 03/30/24 12:45 Plavix) cyclobenzaprine Allergy Rash Verified 03/30/24 12:45 (Cyclobenzaprine) fluoxetine HCl (From Prozac) Allergy Rash Verified 03/30/24 12:45 Family History Father Diabetes Mother Diabetes Surgical History History of esophageal dilatation (~07/2021) Presence of coronary angioplasty implant and graft (~10/31/10) History of back surgery History of cholecystectomy toenail removed H/O percutaneous transluminal coronary angioplasty Social History household members: spouse housing: house other: Typically ambulates with a cane however most recently with a walker seconda Smoking Status: Never smoker alcohol intake: never substance use type: does not use caffeine: Yes Type: tea Number of servings: 1 what type of physical activity do you participate in: none EXAM Physical Exam Const Vital Signs: 03/30/24 12:34 03/30/24 12:42 03/30/24 12:54 Temperature 96.0 F L 96.0 F L Temperature Source Temporal Temporal Pulse Rate 79 75 Respiratory Rate 22 H 16 Respiratory Effort Normal Non-Labored Respiratory Pattern Normal Blood Pressure 86/54 L 86/54 L Blood Pressure Mean 64 64 Pulse Ox 99 98 Oxygen Delivery Method Room Air Room Air 03/30/24 13:02 03/30/24 13:42 03/30/24 15:00 Temperature 97.4 F L Temperature Source Temporal Pulse Rate 72 75 Respiratory Rate 14 13 Respiratory Effort Respiratory Pattern Blood Pressure 126/78 H 124/85 H Blood Pressure Mean 94 98 Pulse Ox 100 97 Oxygen Delivery Method Room Air Room Air 03/30/24 16:00 03/30/24 16:55 Temperature 97.6 F L Temperature Source Pulse Rate 84 84 Respiratory Rate 16 16 Respiratory Effort Respiratory Pattern Blood Pressure 125/66 H 125/66 H Blood Pressure Mean 85 85 Pulse Ox 100 100 Oxygen Delivery Method MDM MDM MDM Narrative Medical decision making narrative: 88-year-old male presents for evaluation of altered mental status. Patient met sepsis criteria with a blood pressure of 86/54, tachypnea of 22, and encephalopathy. 30 cc/kg NS bolus ordered. Sepsis workup ordered. Rocephin ordered prophylactically for suspected UTI. Differential diagnosis includes but is not limited to UTI, electrolyte abnormality, DARRELL, pneumonia, viral illness, worsening dementia, medication side effect. Chest x-ray and EKG reviewed see below. CBC without leukocytosis. Patient has stable anemia. Coagulation panel unremarkable. Blood gas without hypoxia or hypercarbia. CMP is consistent with dehydration. Patient has mild hyperkalemia 5.3. Renal insufficiency with a creatinine of 2.6. No transaminitis. However this seems to be about patient's baseline he ranges anywhere from 2.3-2.7. Lactic acid unremarkable. Troponin unremarkable. TSH is high at 7.810 however this is downtrending from 16 at 03/04. UA negative for UTI. CT head without any acute intracranial abnormalities.bPatient's blood pressure improved to 126/78 with only 1 L NS bolus therefore 30 cc/kg bolus not continued given no source of infection. At this point in time I suspect that patient's hypotension was secondary to dehydration versus infection/sepsis. However given patient's hypotension with delirium, I feel that the patient warrant admission to the hospital. Patient was discussed with Dr. Frias. He will come evaluate the patient. Dr. Frias recommendation is for no hospital admission. Patient will be discharged home after another 1 L NS bolus prior to discharge. Recommendations are to have the care facility hold risperidone if patient becomes fatigued, minimally responsive, or blood pressure less than SBP 110. Dr. Frias spoke with the patient's family and they are agreement with the plan. Patient was given another 1 L NS bolus. He still remains altered. Patient will be discharged back to his care facility. EKG: Interpreted by me/EM physician: EKG shows normal sinus rhythm without acute ischemic changes. Heart rate 61 Diagnostic: Interpreted by me/EM physician: Chest x-ray without pneumonia, effusion, cardiomegaly, pneumothorax Impression: 1. Delirium with history of dementia 2. Hypovolemic hypotension, resolved 3. Dehydration 4. CKD 5. Mild hyperkalemia Lab Data Labs: Laboratory Results - last 24 hr 03/30/24 03/30/24 12:30 13:21 WBC 5.9 RBC 2.60 L Hgb 8.2 L Hct 24.0 L MCV 92.3 MCH 31.5 MCHC 34.2 RDW Std Deviation 52.0 H RDW Coeff of Sea 15.4 H Plt Count 97 L MPV 11.8 Neut % (Auto) Not Reportable Absolute Neuts (auto) 4.5 Absolute Lymphs (auto) 0.47 L Total Counted 100 Neutrophils % (Manual) 77 H Lymphocytes % (Manual) 8 L Monocytes % (Manual) 15 H Platelet Estimate SLT DEC RBC Morphology NORM C+C PT 14.4 INR 1.1 APTT 35.2 Sodium 136 Potassium 5.3 H Chloride 108 H Carbon Dioxide 21.0 Anion Gap 7 BUN 54 H Creatinine 2.60 H Estim Creat Clear Calc 18.20 Est GFR (MDRD) Af Amer 30 L Est GFR (MDRD) Non-Af 25 L BUN/Creatinine Ratio 20.8 H Glucose 193 H Lactic Acid 2.0 Calcium 8.6 Total Bilirubin 0.80 AST 22 ALT 7 L Alkaline Phosphatase 107 Troponin I High Sens 7 Total Protein 6.3 L Albumin 3.1 L Globulin 3.2 Albumin/Globulin Ratio 1.0 TSH 7.810 H Urine Color Yellow Urine Clarity Clear Urine pH 6.0 Ur Specific [place] 1.010 Urine Protein 100 H Urine Glucose (UA) Normal Urine Ketones Negative Urine Occult Blood Negative Urine Nitrite Negative Urine Bilirubin Negative Urine Urobilinogen Normal Ur Leukocyte Esterase 25 H Urine RBC 0 SEEN Urine WBC 0-5 SEEN Ur Squamous Epith Cells 0 SEEN Urine Bacteria RARE Urine Mucus 0 SEEN ABG Data ABG results: ABG 03/30/24 13:27 Specimen Type ART Sample Site R Radial pH 7.38 Bicarbonate Actual 17.9 L Total CO2 19 Base Excess -7 L O2 Saturation 98 ABG pCO2 30.4 L ABG pO2 112 H [place] Test Positive O2 Delivery Device Room Air Vent Mode Not entered Radiography Diagnostic Testing: Clinical Impression(s) from Imaging Studies Brain CT 03/30/24 13:04 IMPRESSION: No significant change. No acute intracranial process. Chronic changes as described above. Electronically Signed: Darren Gonzalez MD at 14:15 EDT Reading Location ID and State: [facility] / [place] Tel , Service support , Chest X-Ray 03/30/24 13:07 IMPRESSION: No radiographic evidence of acute cardiopulmonary disease. Electronically Signed: Darren Gonzalez MD at 13:22 EDT , Discharge Plan Triage Chief Complaint: Unresponsive ED Provider: Karl Hood Dx/Rx/DC Orders Clinical Impression: Delirium due to another medical condition, Dehydration Instructions: Caring for a Person with Delirium, Dehydration, Delirium and Dementia Prescriptions: No Action nitroglycerin 0.4 mg tablet, sublingual 0.4 mg SUBLINGUAL Q5M PRN (Reason: Chest Pain) Qty: 25 3RF insulin glargine-yfgn 100 unit/mL (3 mL) Insulin Pen 10 unit subcut QHS carbidopa-levodopa 10-100 mg Tablet 1 tab PO TIDAC Qty: 0 0RF donepezil 10 mg tablet 10 mg PO DAILY lorazepam 0.5 mg tablet 0.5 mg PO TID PRN (Reason: TREMORS) indomethacin 25 mg capsule 25 mg PO TID PRN (Reason: JOINT PAIN) quetiapine 25 mg tablet 25 mg PO QHS melatonin 3 mg tablet 3 mg PO QHS pantoprazole 40 mg tablet,delayed release (DR/EC) 40 mg PO DAILY risperidone [Risperdal] 0.5 mg tablet 0.5 mg PO BID Rx Instructions: TAKE IN THE MORNING AND AT BEDTIME Ensure Liquid 120 ml PO BID acetaminophen 325 mg Tablet 650 mg PO Q6H PRN (Reason: Pain 1-10 Or Fever>100.7) metoprolol succinate 50 mg tablet extended release 24 hr 50 mg PO DAILY aspirin 81 mg Tablet,Chewable 81 mg PO DAILY insulin lispro [Humalog KwikPen Insulin] 100 unit/mL insulin pen 1 sliding scale dose subcut TIDCM Protocol: 3. Sliding Scale Insulin Med Dosing Condition: 150-189 mg/dl = 1 unit Condition: 190-229 mg/dl = 2 units Condition: 230-269 mg/dl = 3 units Condition: 270-309 mg/dl = 4 units Condition: 310-349 mg/dl = 5 units Condition: 350-399 mg/dl = 6 units Condition: 400-449 mg/dl = 7 units Condition: Greater than 449 call physician Protocol Text: Suggested for: - Patients on Total Daily Insulin Dose of 37-55 units - Obese, infected, or steroid patients MEDIUM DOSING ALGORITHIM levothyroxine 112 mcg tablet 112 mcg PO DAILY Primary Care Provider: Mike Salas Referrals: Mike Salas MD [Primary Care Provider] - 3-5 Days Activity Restrictions/Additional Instructions: Return back to the ED if symptoms change or worsen. Follow-up with primary care physician. Hold risperidone if patient becomes fatigued, minimally responsive, or blood pressure less than 110 Print Language: Guatemalan Disposition Disposition: Home, Self Care Discharge Date/Time: 03/30/24 17:22
--- NOTE | 2024-03-30 13:07 | RAD_ITS ---
INDICATION: AMS EXAMINATION/TECHNIQUE: X-RAY - XR Chest 1 View COMPARISON: Prior study dated: 03/02/2024 FINDINGS: LINES/DEVICES: None. LUNGS: No consolidation, edema or effusion. No pneumothorax. MEDIASTINUM AND CARDIOVASCULAR STRUCTURES: Cardiac silhouette not enlarged. Central airways and mediastinal contour are unremarkable. BONES AND SOFT TISSUES: Unremarkable. RAD/Chest 1 View (Portable) IMPRESSION: No radiographic evidence of acute cardiopulmonary disease. Electronically Signed: Darren Gonzalez MD at 13:22 EDT ,
[2024-03-30 13:26] LABS: Mucous, Urine 0 SEEN /hpf (<or=2+); Red Blood Cells-Urine 0 SEEN /hpf (0-5); Squamous Epithelial Cells - UA 0 SEEN /hpf (0-5)
[2024-03-30 13:29] LABS: Hemoglobin 8.2 g/dL (13.0-16.5); Mean Corp Hgb Conc 34.2 g/dL (32-36); Mean Corpuscular Hgb 31.5 pg (27.0-32.0); Mean Corpuscular Volume 92.3 fL (80-94); Mean Platelet Vol. 11.8 fl (6.2-12.0); POSITIVE COUNT YES; POSITIVE DIFFERENTIAL YES; POSITIVE MORPHOLOGY YES; Platelet Count 97 K/mm3 (150-450); RBC Distribution Width CV 15.4 % (11.6-14.6); White Blood Count 5.9 K/mm3 (4.4-11.0)
[2024-03-30 13:31] LABS: Allen Test Positive; Base Excess -7 mmol/L (-2 to +2); Bicarbonate 17.9 mmol/L (22-26); Blood Gas Specimen Type ART; Mode Not entered; O2 Delivery Device Room Air; PO2 112 mmHG (75-100); SITE R Radial; SO2 98 % (95-99); Total Carbon Dioxide 19 mmol/L; pCO2 30.4 mmHg (35-45); pH 7.38 (7.35-7.45)
[2024-03-30] MEDS: 0.9% Normal Saline (1000mL) 1,000 ML 999 ML IV ×2 (13:34→15:43)
[2024-03-30] MEDS: Ceftriaxone 2 GM in 0.9% Normal Saline (50mL MB+) 50 ML IV (13:34)
[2024-03-30 13:39] LABS: Differential Indicated MANUAL DIFF
[2024-03-30 13:42] VITALS: BP 126/78; PULSE 72; RESP 14; TEMP 36.3; O2SAT 100
[2024-03-30 13:48] LABS: AST(SGOT) 22 U/L (15-37); Alanine Aminotransfer ALT/SGPT 7 U/L (16-61); Albumin, Serum 3.1 g/dL (3.2-5.0); Alkaline Phosphatase 107 U/L (45-117); Anion Gap 7 (5-15); BUN 54 mg/dL (7-18); BUN/Creat Ratio 20.8 RATIO (10-20); Calcium,Total 8.6 mg/dL (8.5-10.1); Chloride 108 mmol/L (98-107); EST Glomerular Filtration Rate 25 mL/min (>60); Est Glom Filt Rate - Afr Amer 30 mL/min (>60); Globulin 3.2 g/dL (2.2-4.2); Glucose 193 mg/dL (74-106); Potassium 5.3 mmol/L (3.5-5.1); Protein, Total 6.3 g/dL (6.4-8.2); Sodium Level 136 mmol/L (136-145); Troponin-I HS (w/2H Reflex) 7 pg/mL (3.0-78.0)
[2024-03-30 13:52] LABS: Color, Urine Yellow (Yellow); Glucose, Dipstick Normal (Normal); Ketone-Dipstick Negative (Negative); Leukocyte Esterase-Dipstick 25 /ul (Negative); Nitrite-Dipstick Negative (Negative); Occult Blood-Urine Negative /ul (Negative); Protein-Dipstick 100 mg/dl (Negative); Urine Bilirubin Dipstick Negative (Negative); Urine Clarity Clear (Clear); Urine Urobilinogen Normal (Normal)
[2024-03-30 13:52] LABS: International Normalized Ratio 1.1; Prothrombin Time (Protime)PT. 14.4 SECONDS (11.7-14.9)
[2024-03-30 13:53] LABS: Partial Thromboplast Time 35.2 Seconds (24.1-36.2)
--- OUTSIDE RECORDS SUMMARY | 2024-03-30 13:56 | XMS RPT_ITS | CCD ---
Author Organization [facility] Care Team Providers Care Wood Bucker Name Role Phone Brando Pérez Unavailable Unavailable Brando Pérez Unavailable Unavailable Omi CORRECTIONAL AGENCY DIRECTOR, Chloe N Unavailable Unavailab le Omi CORRECTIONAL AGENCY DIRECTOR, Chloe N Unavailable Unavailab Lauren Barlow Unavailable Unavailable Lauren Beasley Unavailable Unavailable Allergies Allergy Classification Reported Allergen(s) Allergy Type Date of Onset Reaction(s) Facility (6 sources) clopidogrel Drug Allergy 01-04-2011 Rash [facility] Work Phone: (6 sources) cyclobenzaprine Drug Allergy 10-18-2016 [facility] Work Phone: (6 sources) FLUoxetine Drug Allergy 10-03-2010 Rash [facility] Work Phone: Medications Completed/Discontinued Medications Medication Drug Class(es) Dates Sig (Normalized) Sig (Original) allopurinol 100 mg oral tablet (12 sources) Xanthine Oxidase Inhibitor Start: 05-27-2014 take 1 tablet by mouth once daily ALLOPURINOL 100 MG TABS One tablet by mouth daily ALLOPURINOL [id number] Marisol Rodriguez PA-C aspirin 81 mg oral tablet (20 sources) Platelet Aggregation Inhibitor, Nonsteroidal Anti-inflammatory Drug Start: 05-15-2013 take 1 tablet by mouth once daily ADULT ASPIRIN EC LOW STRENGTH 81 MG TBEC One tablet by mouth daily ASPIRIN [id number] Marlena Y Alisia Start: 11-14-2012 take 1 tablet by jessica th once daily HALFPRIN 162 MG TBEC One tablet by mouth daily ASPIRIN [id number] Anum Diaz RN Start: 10-03-2010 take 1 tablet by jessica th once daily ASPIRIN 81 MG TABS One tablet by mouth daily ASPIRIN [id number] Anum Diaz RN benzonatate 200 mg oral capsule (10 sources) Non-narcotic Antitussive Start: 10-18-2016 End: 10-27-2016 BENZONATATE 200 MG CAPS 1 tablet 3 times a day as needed for cough BENZONATATE [id number] Marisol Rodriguez PA-C cephalexin 500 mg oral capsule (12 sources) Cephalosporin Antibacterial Start: 01-25-2015 End: 09-03-2015 take 1 tablet by mouth three times daily KEFLEX 500 MG CAPS One tablet by mouth three times daily CEPHALEXIN [id number] Marisol Rodriguez PA-C chlordiazePOXIDE hydrochloride 5 mg / clidinium bromide 2.5 mg oral capsule (12 sources) Anticholinergic, Benzodiazepine Start: 10-03-2010 End: 10-19-2011 take 1 tablet by mouth once daily LIBRAX 5-2.5 MG CAPS One tablet by mouth daily CLIDINIUM-CHLORDIAZ EPOXIDE 15369847527 Alma Grigsby ergocalciferol 07774 unt oral tablet (18 sources) Provitamin D2 Compound Start: 10-19-2011 End: 10-18-2016 take 1 tablet by mouth every month VITAMIN D (ERGOCALCIFEROL) 58324 UNIT CAPS One tablet by mouth 1 time monthly ERGOCALCIFEROL [id number] Chloe Braga LPN Start: 10-19-2011 End: 10-18-2016 take 1 tablet by mouth every month VITAMIN D (ERGOCALCIFEROL) 89797 UNIT CAPS One tablet by mouth 1 time monthly ERGOCALCIFEROL [id number] Mike Mark MD Start: 10-03-2010 VITAMIN D (ERG OCALCIFEROL) 64517 UNIT CAPS 1 tablet by mouth 1 X weekly, then as directed ERGOCALCIFEROL 96220504627 Alma Grigsby Start: 10-03-2010 VITAMIN D (ERG OCALCIFEROL) 59204 UNIT CAPS 1 tablet by mouth 1 X weekly, then as directed ERGOCALCIFEROL [id number] Alma Grigsby fenofibrate 200 mg oral capsule (18 sources) Peroxisome Proliferator Receptor alpha Agonist Start: 10-03-2010 End: 05-20-2013 take 1 tablet by mouth once daily FENOFIBRATE MICRONIZED 200 MG CAPS One tablet by mouth daily FENOFIBRATE MICRONIZED [id number] Marisol Rodriguez PA-C fexofenadine hydrochloride 180 mg oral tablet (8 sources) Histamine-1 Receptor Antagonist Start: 10-18-2016 End: 04-25-2017 FEXOFENADINE HCL 180 MG TABS 1 tablet daily FEXOFENADINE HCL [id number] Mike Mark MD glimepiride 2 mg oral tablet (8 sources) Sulfonylurea Start: 10-18-2016 take 1 tablet by mouth once daily GLIMEPIRIDE 2 MG TABS One tablet by mouth daily GLIMEPIRIDE 23336403945 Mike Mark MD Start: 10-18-2016 GLIMEPIRIDE TA BS as directed GLIMEPIRIDE TABS 42409235737 Chloe Braga LPN Start: 10-18-2016 GLIMEPIRIDE TA BS as directed GLIMEPIRIDE TABS 71844101841 Chloe Braga LPN hydroxychloroquine sulfate 200 mg oral tablet (6 sources) Antimalarial, Antirheumatic Agent End: 04-25-2017 take 1 tablet by mouth once daily PLAQUENIL 200 MG TABS 1 1/2 tabs po daily HYDROXYCHLOROQUINE SULFATE [id number] Marisol Rodriguez PA-C levothyroxine sodium 0.137 mg oral tablet (14 sources) l-Thyroxine Start: 10-19-2011 take 1 tablet by mouth once daily LEVOTHYROXINE SODIUM 137 MCG TABS One tablet by mouth daily LEVOTHYROXINE SODIUM 81234148096 Marisol Rodriguez PA-C Start: 10-03-2010 take 1 tablet by jessica th once daily LEVOTHYROXINE SODIUM 112 MCG TABS One tablet by mouth daily LEVOTHYROXINE SODIUM 32206967080 Mike Mark MD lisinopril 5 mg oral tablet (20 sources) Angiotensin Converting Enzyme Inhibitor Start: 11-14-2012 take 1 tablet by mouth twice daily LISINOPRIL 5 MG TABS One tablet by mouth twice daily LISINOPRIL 26886145436 Anum Givens Emily EDWARDS Start: 08-29-2011 take 1 tablet by jessica th once daily LISINOPRIL 5 MG TABS One tablet by mouth daily LISINOPRIL 67792694953 Mike Mark MD Start: 10-03-2010 take 1 tablet by jessica th once daily LISINOPRIL 10 MG TABS One tablet by mouth daily LISINOPRIL 68954043854 Mike Mark MD meclizine hydrochloride 25 mg oral tablet (12 sources) Antiemetic Start: 10-03-2010 End: 10-18-2016 MECLIZINE HCL 25 MG TABS As needed MECLIZINE HCL 56474251987 Alma Grigsby meloxicam 15 mg oral tablet (20 sources) Nonsteroidal Anti-inflammatory Drug Start: 01-25-2015 End: 04-21-2016 take 1 tablet by mouth once daily as needed MELOXICAM 15 MG TABS One tablet by mouth daily as needed MELOXICAM [id number] Mike Mark MD Start: 12-01-2013 End: 05-27-2014 take 1 tablet by mouth once daily as needed MOBIC 15 MG TABS One tablet by mouth daily as needed MELOXICAM [id number] ASHLEY FranklinC 24 hr metoprolol succinate 100 mg extended release oral tablet (20 sources) beta-Adrenergic Joycelyn Start: 11-01-2011 take 1 tablet by mouth once daily METOPROLOL SUCCINATE ER 100 MG [id number] One tablet by mouth daily METOPROLOL SUCCINATE [id number] Mike Mark MD Start: 11-01-2011 take 1 tablet by jessica th once daily METOPROLOL SUCCINATE ER 50 MG [id number] One tablet by mouth daily METOPROLOL SUCCINATE [id number] Mike Mark MD Start: 10-03-2010 take 1 tablet by jessica th twice daily METOPROLOL TARTRATE 50 MG TABS One tablet by mouth twice daily METOPROLOL TARTRATE [id number] Mike Mark MD metroNIDAZOLE 7.5 mg/ml topical cream (12 sources) Nitroimidazole Antimicrobial Start: 10-19-2011 End: 05-27-2014 METRONIDAZOLE 0.75 % CREA as directed METRONIDAZOLE [id number] Mike Mark MD nitroglycerin 0.4 mg sublingual tablet (18 sources) Nitrate Vasodilator Start: 10-03-2010 End: 10-18-2016 NITROSTAT 0.4 MG SUBL 1 tablet under tongue every 5 min up to 3 X NITROGLYCERIN 57106603697 Mike Mark MD omeprazole 20 mg delayed release oral capsule (6 sources) Proton Pump Inhibitor Start: 10-03-2010 take 1 tablet by mouth once daily OMEPRAZOLE 20 MG CPDR One tablet by mouth daily OMEPRAZOLE [id number] Alma Grigsby prasugrel 10 mg oral tablet (12 sources) [id number] Platelet Inhibitor Start: 01-04-2011 End: 05-16-2012 take 1 tablet by mouth once daily EFFIENT 10 MG TABS One tablet by mouth daily PRASUGREL HCL 10326130686 Mike Mark MD pravastatin sodium 40 mg oral tablet (12 sources) HMG-CoA Reductase Inhibitor Start: 10-19-2011 End: 05-27-2014 take 1 tablet by mouth at bedtime PRAVASTATIN SODIUM 40 MG TABS One tablet by mouth at bedtime. PRAVASTATIN SODIUM [id number] Marisol Rodriguez PA-C predniSONE (20 sources) Start: 10-18-2016 PREDNISONE TABS as directed PREDNISONE TABS [id number] Chloe Braga LPN Start: 10-18-2016 End: 04-25-2017 PREDNISONE TABS as directed PREDNISONE TABS [id number] Mike Mark MD Start: 10-18-2016 PREDNISONE TAB S as directed PREDNISONE TABS [id number] Chloe Braga LPN Start: 12-01-2013 End: 05-27-2014 PREDNISONE 20 MG TABS Taperi ng dose as directed PREDNISONE [id number] Mike Mark MD rosuvastatin calcium 5 mg oral tablet (6 sources) HMG-CoA Reductase Inhibitor Start: 10-03-2010 take 1 tablet by mouth once daily CRESTOR 5 MG TABS One tablet by mouth daily ROSUVASTATIN CALCIUM 68178959682 Alma Grigsby sAXagliptin 5 mg oral tablet (20 sources) Dipeptidyl Peptidase 4 Inhibitor Start: 10-03-2010 End: 04-21-2016 take 1 tablet by mouth once daily ONGLYZA 5 MG TABS One tablet by mouth daily SAXAGLIPTIN HCL 42890908041 Mike Mark MD SITagliptin 100 mg oral tablet (12 sources) Dipeptidyl Peptidase 4 Inhibitor Start: 01-04-2011 take 1 tablet by mouth once daily JANUVIA 100 MG TABS One tablet by mouth daily SITAGLIPTIN PHOSPHATE 42137297045 Mike Mark MD vitamin d 1000 unt oral tablet (12 sources) Start: 10-19-2011 End: 12-01-2013 take 1 tablet by mouth once daily VITAMIN D 1000 UNIT TABS One tablet by mouth daily CHOLECALCIFEROL 27393928650 Mike Mark MD Start: 10-19-2011 take 1 tablet by jessica once daily VITAMIN D 1000 UNIT TABS One tablet by mouth daily CHOLECALCIFEROL 27609725029 Mike Mark MD Start: 10-19-2011 End: 12-01-2013 take 1 tablet by mouth once daily VITAMIN D 1000 UNIT TABS One tablet by mouth daily CHOLECALCIFEROL 98145699649 Mike Mark MD Problems Active Problems Problem Classification Problem Date Documented Date Episodic/Chronic Coronary atherosclerosis and other heart disease (18 sources) Atherosclerotic heart disease of [place] coronary artery without angina pectoris; Translations: [Angina [...] (2 sources) Long-term drug therapy; Translations: [Other bed bug exterminator (current) drug therapy] Onset: 10-03-2010 10-03-2010 Past or Other Problems Problem Classification Problem Date Documented Da te Episodic/Chronic Coronary atherosclerosis and other heart disease (6 sources) Coronary angioplasty status; Translations: [Percutaneous transluminal coronary angioplasty status] Onset: 01-04-2011 01-04-2011 Episodic Other aftercare (4 sources) Long-term drug therapy; Translations: [Other bed bug exterminator (current) drug therapy] Onset: 10-03-2010 10-03-2010 Episodic Other lower respiratory disease (6 sources) Cough; Translations: [Cough] Onset: 10-18-2016 10-18-2016 Episodic Other nutritional; endocrine; and metabolic disorders (6 sources) Body mass index (BMI) 29.0-29.9, adult; Translations: [Body Mass Index 29.0-29.9, adult] Onset: 12-01-2013 12-01-2013 Episodic Results Test Name Value Interpretation Reference Range Facility Office Visiton 04-25-2017 Dietary management education, guidance, and counseling (procedure) yes Invalid Interpretation Code [facility] Work Phone: Documentation of current medications (procedure) Done Invalid Interpretation Code [facility] Work Phone: Fall risk assessment No Invalid Interpretation Code [facility] Work Phone: Tobacco use [facility] Never smoker Invalid Interpretation Code [facility] Work Phone: Office Visit: [facility] 10-28-19 17 Tobacco use status [facility] Never smoker Invalid Interpretation Code [facility] Work Phone: Office Visit: [facility]: allergic r hinitison 10-18-2016 Tobacco smoking status Never Invalid Interpretation Code [facility] Work Phone: Tobacco use status [facility] Never smoker Invalid Interpretation Code [facility] Work Phone: Clinical Lists Update: Prelo on site coordinator 03-10-2016 Alkaline phosphatase (ALP) 108 U/L Invalid Interpretation Code [facility] Work Phone: ALP (Bld) [Catalytic activity/Vol] 108 U/L Invalid Interpretation Code [facility] Work Phone: ALT [Catalytic activity/Vol] 35 U/L Invalid Interpretation Code [facility] Work Phone: AST [Catalytic activity/Vol] 27 U/L Invalid Interpretation Code [facility] Work Phone: Bilirubin [Mass/Vol] 1.10 mg/dL Invalid Interpretation Code [facility] Work Phone: Cholesterol [Mass/Vol] 169 mg/dL Invalid Interpretation Code [facility] Work Phone: Cholesterol in HDL [Mass/Vol] 39 mg/dL Invalid Interpretation Code [facility] Work Phone: Cholesterol in LDL [Mass/Vol] 96 mg/dL Invalid Interpretation Code [facility] Work Phone: Protein [Mass/Vol] 8.3 g/dL Invalid Interpretation Code [facility] Work Phone: Triglyceride [Mass/Vol] 168 mg/dL Invalid Interpretation Code [facility] Work Phone: Office Visit: [facility] 09-03-19 16 Left ventricular Ejection fraction 65 % Invalid Interpretation Code [facility] Work Phone: Lab Report: Lipid Profileon 01-15-2015 Lipoprotein.pre-beta [Mass/Vol] 46 mg/dL High 5-40 [facility] Work Phone: Lab Report: Liver Profileon 01-15-2015 Albumin [Mass/Vol] 3.7 g/dL Invalid Interpretation Code 3.4-5.0 [facility] Work Phone: Bilirubin.direct [Mass/Vol] 0.20 mg/dL Invalid Interpretation Code 0.00-0.30 [facility] Work Phone: Globulin 4.3 g/dL High 2.3-3.5 [facility] Work Phone: Globulin (S) [Mass/Vol] 4.3 g/dL High 2.3-3.5 [facility] Work Phone: EKG Report: [facility] ECG Obse jeannette 05-27-2014 EKG QRS axis 52 deg Invalid Interpretation Code [facility] Work Phone: [phone] electrocardiogram interpretation Sinus Rhythm - occasional PAC # PACs = 1. WITHIN NORMAL LIMITS Invalid Interpretation Code [facility] Work Phone: [phone] GE use only - for LinkLogic import when terms are not otherwise specified 405 ms Invalid Interpretation Code [facility] Work Phone: [phone] Heart rate 62 /min Invalid Interpretation Code [facility] Work Phone: [phone] Interpretation Sinus Rhythm - occasional PAC # PACs = 1.WITHIN NORMAL LIMITS Invalid Interpretation Code [facility] Work Phone: [phone] P [place] 53 deg Invalid Interpretation Code [facility] Work Phone: [phone] P wave axis, electrocardiogram 53 deg Invalid Interpretation Code [facility] Work Phone: DE Interval 166 ms Invalid Interpretation Code [facility] Work Phone: [phone] DE interval, electrocardiogram 166 ms Invalid Interpretation Code [facility] Work Phone: [phone] QRS axis, electrocardiogram 52 deg Invalid Interpretation Code [facility] Work Phone: [phone] QRS Duration 94 ms Invalid Interpretation Code [facility] Work Phone: [phone] QRS duration, electrocardiogram 94 ms Invalid Interpretation Code [facility] Work Phone: [phone] QT Interval new path ms Invalid Interpretation Code [facility] Work Phone: [phone] QT interval, electrocardiogram new path ms Invalid Interpretation Code [facility] Work Phone: [phone] QTc [place] 405 ms Invalid Interpretation Code [facility] Work Phone: [phone] T [place] 66 deg Invalid Interpretation Code [facility] Work Phone: [phone] T wave axis, electrocardiogram 66 deg Invalid Interpretation Code [facility] Work Phone: Office Visit: [facility] 05-27-20 14 cardiac risk group C Invalid Interpretation Code [facility] Work Phone: General cardiovascular disease 10Y risk [#] [place] N/A Invalid Interpretation Code [facility] Work Phone: Clinical Lists Update: Pre08-25-2013 Thyroid stimulating hormone (TSH) 0.36 u[iU]/mL Invalid Interpretation Code [facility] Work Phone: [phone] TSH Qn 0.36 m[IU]/L Invalid Interpretation Code [facility] Work Phone: Clinical Lists Update: Pre02-12-2013 Calcium [Mass/Vol] 8.7 mg/dL Invalid Interpretation Code [facility] Work Phone: Chloride [Moles/Vol] 106 mmol/L Invalid Interpretation Code [facility] Work Phone: CO2 23.0 mmol/L Invalid Interpretation Code [facility] Work Phone: [phone] CO2 (BldV) [Partial pressure] 23.0 mmol/L Invalid Interpretation Code [facility] Work Phone: Creatinine [Mass/Vol] 1.8 mg/dL Invalid Interpretation Code [facility] Work Phone: Erythrocytes (RBC) 4.95 10*6/uL Invalid Interpretation Code [facility] Work Phone: [phone] Glucose [Mass/Vol] 139 mg/dL High [facility] Work Phone: Hematocrit (Bld) [Volume fraction] 44.2 % Invalid Interpretation Code [facility] Work Phone: Hematocrit (HCT) 44.2 % Invalid Interpretation Code [facility] Work Phone: [phone] Hemoglobin (Bld) [Mass/Vol] 15.1 g/dL Invalid Interpretation Code [facility] Work Phone: MCH 30.5 pg Invalid Interpretation Code [facility] Work Phone: [phone] MCH (RBC) [Entitic mass] 30.5 pg Invalid Interpretation Code [facility] Work Phone: MCV 89.3 fL Invalid Interpretation Code [facility] Work Phone: [phone] MCV (RBC) [Entitic vol] 89.3 fL Invalid Interpretation Code [facility] Work Phone: [phone] Platelets 216 10*3/mm3 Invalid Interpretation Code [facility] Work Phone: [phone] Platelets (Bld) [#/Vol] 216 10*3/uL Invalid Interpretation Code [facility] Work Phone: [phone] Potassium [Moles/Vol] 3.9 mmol/L Invalid Interpretation Code [facility] Work [phone] RBC (Bld) [#/Vol] 4.95 10*6/uL Invalid Interpretation Code [facility] Work Phone: [phone] Sodium [Moles/Vol] 138 mmol/L Invalid Interpretation Code [facility] Work Phone: [phone] Urea nitrogen [Mass/Vol] 27 mg/dL Invalid Interpretation Code [facility] Work Phone: [phone] WBC (Bld) [#/Vol] 8.4 10*3/uL Invalid Interpretation Code [facility] Work Phone: [phone] WBC (Leukocytes) 8.4 10*3/uL Invalid Interpretation Code [facility] Work Phone: [phone] Lab Report: PHOSon 3 PHOS 2.6 mg/dL Normal 2.5-4.9 [facility] Work Phone: [phone] Phosphate [Mass/Vol] 2.6 mg/dL Normal 2.5-4.9 [facility] Work Phone: [phone] Lab Report: URICon 3 Urate [Mass/Vol] 9.5 mg/dL High 3.5-7.2 [facility] Work Phone: [phone] Clinical Lists Update: Prelo on site coordinator 10-11-2012 Anion gap 8 mmol/L Invalid Interpretation Code [facility] Work Phone: [phone] Anion gap [Moles/Vol] 8 mmol/L Invalid Interpretation Code [facility] Work Phone: [phone] Urea nitrogen/Creatinine [Mass ratio] 15.3 mg/mg Invalid Interpretation Code [facility] Work Phone: Lab Report: MIACREon 013 Creatinine (U) [Mass/Vol] 147.2 mg/dL Normal NO RANGE EST. [facility] Work Phone: Replaced Document: Vasu Cortés 05-16-2012 Pulse (Heart Rate) 395 ms Invalid Interpretation Code [facility] Work Phone: QT interval/QT interval (corrected for heart rate), electrocardiogram 395 ms Invalid Interpretation Code [facility] Work Phone: Vital Signs Date Time Vital Sign Value Performing Clinician Augustina dillon 04-25-2017 14:36-0500 BMI (Body Mass Index) 28.24 kg/m2 [facility] Work Phone: 04-25-2017 14:36-0500 BP Diastolic 74 mm[Hg] [facility] Work Phone: 04-25-2017 14:36-0500 BP Systolic 144 mm[Hg] [facility] Work Phone: 04-25-2017 14:36-0500 Height 167.64 cm [facility] Work Phone: 04-25-2017 14:36-0500 Pulse [...] 09:48-0400 Heart rate 92 /min Lauren Thomas [facility] Work Phone: 10-27-2016 09:48-0400 Systolic blood pressure 134 mm[Hg] Lauren Thomas [facility] Work Phone: 10-18-2016 12:06-0400 Body height 167.64 cm Chloe Braga LPN [facility] Work Phone: 10-18-2016 12:06-0400 Body mass index (BMI) [Ratio] 26.63 kg/m2 Chloe Braga LPN [facility] Work Phone: 10-18-2016 12:06-0400 Body temperature 98.1 [degF] Chloe Braga LPN [facility] Work Phone: 10-18-2016 12:06-0400 Body weight 74.84 kg Chloe Braga LPN [facility] Work Phone: 10-18-2016 12:06-0400 Diastolic blood pressure 74 mm[Hg] Chloe Braga LPN [facility] Work Phone: 10-18-2016 12:06-0400 Heart rate 88 /min Chloe Braga LPN [facility] Work Phone: 10-18-2016 12:06-0400 Respiratory rate 15 /min Chloe Braga LPN [facility] Work Phone: 10-18-2016 12:06-0400 SaO2% (BldA) [Mass fraction] 96 % Chloe Braga LPN [facility] Work Phone: 10-18-2016 12:06-0400 Systolic blood pressure 122 mm[Hg] Chloe Braga LPN [facility] Work Phone: 04-21-2016 14:26-0500 Body surface area Derived from formula 1.92 m2 Chloe Braga LPN [facility] Work Phone: Procedures Date Procedure Procedure Detail Performing Clinician Start: 04-25-2017 End: 04-25-2017 Follow Up Appt 6 months Mike Mark MD Start: 04-25-2017 End: 04-25-2017 MMMckenzie Mark MD Start: 10-27-2016 End: 10-27-2016 Follow Up Appt 6 months Marisol monet PA-C Work Phone: Start: 10-27-2016 End: 10-27-2016 PFM Marisol Rodriguez PA-C Work Phone: Start: 10-27-2016 End: 10-27-2016 Documentation of current medications Lauren Beasley Start: 10-27-2016 End: 10-27-2016 Follow Up Appt 6 months Marisol monet PA-C Work Phone: Start: 10-27-2016 End: 10-27-2016 PF Marisol Rodriguez PA-C Work Phone: Start: 10-18-2016 End: 10-18-2016 Dietary management education, guidance, and counseling Chloe Braga LPN Start: 10-18-2016 End: 10-18-2016 Documentation of current medications Chloe Braga LPN Start: 04-21-2016 End: 04-21-2016 Follow Up Appt 6 months Mike Mark MD Start: 04-21-2016 End: 04-21-2016 KIANNA Mark MD Start: 04-21-2016 End: 04-21-2016 Follow Up Appt 6 months Mike Mark MD Start: 04-21-2016 End: 04-21-2016 KIANNA Mark MD Start: 09-03-2015 End: 09-03-2015 Follow Up Appt 6 months Marisol monet PA-C Work Phone: Start: 09-03-2015 End: 09-03-2015 PFM Marisol Rodriguez PA-C Work Phone: Start: 09-03-2015 End: 09-03-2015 Follow Up Appt 6 months Marisol monet PA-C Work Phone: Start: 09-03-2015 End: 09-03-2015 PFM Marisol Rodriguez PA-C Work Phone: Start: 01-25-2015 [...] End: 01-25-2015 MM Mike Mark MD Start: 01-15-2015 End: 01-15-2015 [...] Mike Mark MD Start: 12-01-2013 End: 12-01-2013 MM Mike Mark MD Start: 07-12-2013 End: 08-04-2013 [...] Plasma Marisol Rodriguez PA-C Work Phone: Start: 11-21-2012 End: 11-21-2012 eRx Transmitted during this visit (Medicare only) Marisol Rodriguez PA-C Work Phone: Start: 11-21-2012 End: 01-31-2013 Follow Up Appt 6 months Marisol monet PA-C Work Phone: Start: 11-21-2012 End: 01-31-2013 PF Marisol Rodriguez PA-C Work Phone: Start: 11-21-2012 [...] Author Start: 10-24-2017 End: 10-24-2017 Appointment Appointment [facility] Work Phone: Start: 04-25-2017 End: 04-25-2017 Appointment Appointment [facility] Work Phone: Start: 04-25-2017 End: 04-25-2017 Follow Up Appt 6 months Follow Up Appt 6 months [facility] Work Phone: Start: 04-25-2017 End: 04-25-2017 Follow Up Appt Other Follow Up Appt Other [facility] Work Phone: Start: 04-25-2017 End: 04-25-2017 MMM MMM [facility] Work Phone: Start: 10-27-2016 End: 10-27-2016 Follow Up Appt 6 months Follow Up Appt 6 months [facility] Work Phone: Start: 10-27-2016 End: 10-27-2016 PFM PFM [facility] Work Phone: Start: 10-27-2016 End: 10-27-2016 Patient encounter procedure Appointment [facility] Work Phone: Start: 10-27-2016 End: 10-27-2016 Follow Up Appt 6 months Follow Up Appt 6 months [facility] Work Phone: Start: 10-27-2016 End: 10-27-2016 PFM PFM [facility] Work Phone: Start: 10-18-2016 End: 10-18-2016 Patient encounter procedure Appointment [facility] Work Phone: Start: 04-21-2016 End: 04-21-2016 Follow Up Appt 6 months Follow Up Appt 6 months [facility] Work Phone: Start: 04-21-2016 End: 04-21-2016 MMM MMM [facility] Work Phone: Start: 04-21-2016 End: 04-21-2016 Follow Up Appt 6 months Follow Up Appt 6 months [facility] Work Phone: Start: 04-21-2016 End: 04-21-2016 MMM MMM [facility] Work Phone: Start: 09-03-2015 End: 09-03-2015 Follow Up Appt 6 months Follow Up Appt 6 months [facility] Work Phone: Start: 09-03-2015 End: 09-03-2015 PFM PFM [facility] Work Phone: Start: 09-03-2015 End: 09-03-2015 Follow Up Appt 6 months Follow Up Appt 6 months [facility] Work Phone: Start: 09-03-2015 End: 09-03-2015 [facility] Work Phone: Start: 02-09-2015 End: 01-15-2015 *Hepatic Function Panel *Hepatic Function Panel [facility] Work Phone: Start: 02-09-2015 End: 01-15-2015 Lipid panel [AGGREGATE] *Lipid Profile CC PCP [facility] Work Phone: Start: 02-09-2015 End: 01-15-2015 Hepatic function 2000 panel - Serum or Plasma *Hepatic Function Panel [facility] Work Phone: Start: 02-09-2015 End: 01-15-2015 Lipid 1996 panel - Serum or Plasma *Lipid Profile CC PCP [facility] Work Phone: Start: 01-25-2015 End: 01-25-2015 Follow Up Appt 6 months Follow Up Appt 6 months [facility] Work Phone: Start: 01-25-2015 End: 01-25-2015 MMM MMM [facility] Work Phone: Start: 01-25-2015 End: 01-25-2015 Follow Up Appt 6 months Follow Up Appt 6 months [facility] Work Phone: Start: 01-25-2015 End: 01-25-2015 MMM MMM [facility] Work Phone: Start: 07-12-2014 End: 08-10-2014 *Hepatic Function Panel *Hepatic Function Panel [facility] Work Phone: Start: 07-12-2014 End: 08-10-2014 Lipid panel [AGGREGATE] *Lipid Profile CC PCP [facility] Work Phone: Start: 07-12-2014 End: 08-10-2014 Hepatic function 2000 panel - Serum or Plasma *Hepatic Function Panel [facility] Work Phone: Start: 07-12-2014 End: 08-10-2014 Lipid 1996 panel - Serum or Plasma *Lipid Profile CC PCP [facility] Work Phone: Start: 05-27-2014 End: 05-27-2014 Ecg routine ecg w/least 12 lds w/i&r EKG (In office) [facility] Work Phone: Start: 05-27-2014 End: 05-27-2014 Follow Up Appt 6 months Follow Up Appt 6 months [facility] Work Phone: Start: 05-27-2014 End: 05-27-2014 PFM PFM [facility] Work Phone: Start: 05-27-2014 End: 05-27-2014 Ecg routine ecg w/least 12 lds w/i&r EKG (In office) [facility] Work Phone: Start: 05-27-2014 End: 05-27-2014 Follow Up Appt 6 months Follow Up Appt 6 months [facility] Work Phone: Start: 05-27-2014 End: 05-27-2014 PFM PFM [facility] Work Phone: Start: 01-09-2014 End: 01-15-2014 *Hepatic Function Panel *Hepatic Function Panel [facility] Work Phone: Start: 01-09-2014 End: 01-15-2014 Lipid panel [AGGREGATE] *Lipid Profile CC PCP [facility] Work Phone: Start: 01-09-2014 End: 01-15-2014 Hepatic function 2000 panel - Serum or Plasma *Hepatic Function Panel [facility] Work Phone: Start: 01-09-2014 End: 01-15-2014 Lipid 1996 panel - Serum or Plasma *Lipid Profile CC PCP [facility] Work Phone: Start: 12-01-2013 End: 12-01-2013 Follow Up Appt 6 months Follow Up Appt 6 months [facility] Work Phone: Start: 12-01-2013 End: 12-01-2013 MMM MM [facility] Work Phone: Start: 12-01-2013 End: 12-01-2013 Follow Up Appt 6 months Follow Up Appt 6 months [facility] Work Phone: Start: 12-01-2013 End: 12-01-2013 MMM MMM [facility] Work Phone: Start: 07-12-2013 End: 08-04-2013 *Hepatic Function Panel *Hepatic Function Panel [facility] Work Phone: Start: 07-12-2013 End: 08-04-2013 Lipid panel [AGGREGATE] *Lipid Profile CC PCP [facility] Work Phone: Start: 07-12-2013 End: 08-04-2013 Hepatic function 2000 panel - Serum or Plasma *Hepatic Function Panel [facility] Work Phone: Start: 07-12-2013 End: 08-04-2013 Lipid 1996 panel - Serum or Plasma *Lipid Profile CC PCP [facility] Work Phone: Start: 05-20-2013 End: 05-20-2013 Follow Up Appt 6 months Follow Up Appt 6 months [facility] Work Phone: Start: 05-20-2013 End: 05-20-2013 PFM PFM [facility] Work Phone: Start: 05-20-2013 End: 05-20-2013 Follow Up Appt 6 months Follow Up Appt 6 months [facility] Work Phone: Start: 05-20-2013 End: 05-20-2013 PFM PFM [facility] Work Phone: Start: 04-11-2013 End: 05-13-2013 *Hepatic Function Panel *Hepatic Function Panel [facility] Work Phone: Start: 04-11-2013 End: 05-13-2013 Lipid panel [AGGREGATE] *Lipid Profile [facility] Work Phone: Start: 04-11-2013 End: 05-13-2013 Hepatic function 2000 panel - Serum or Plasma *Hepatic Function Panel [facility] Work Phone: Start: 04-11-2013 End: 05-13-2013 Lipid 1996 panel - Serum or Plasma *Lipid Profile [facility] Work Phone: Start: 11-21-2012 End: 01-31-2013 Follow Up Appt 6 months Follow Up Appt 6 months [facility] Work Phone: Start: 11-21-2012 End: 01-31-2013 PFM PFM [facility] Work Phone: Start: 11-21-2012 End: 01-31-2013 Follow Up Appt 6 months Follow Up Appt 6 months [facility] Work Phone: Start: 11-21-2012 End: 01-31-2013 PFM PFM [facility] Work Phone: Start: 10-09-2012 End: 10-11-2012 *Hepatic Function Panel *Hepatic Function Panel [facility] Work Phone: Start: 10-09-2012 End: 10-11-2012 Lipid panel [AGGREGATE] *Lipid Profile [facility] Work Phone: Start: 10-09-2012 End: 10-11-2012 Hepatic function 2000 panel - Serum or Plasma *Hepatic Function Panel [facility] Work Phone: Start: 10-09-2012 End: 10-11-2012 Lipid 1996 panel - Serum or Plasma *Lipid Profile [facility] Work Phone: Start: 07-12-2012 End: 07-18-2012 *Hepatic Function Panel *Hepatic Function Panel [facility] Work Phone: Start: 07-12-2012 End: 07-18-2012 Lipid panel [AGGREGATE] *Lipid Profile [facility] Work Phone: Start: 07-12-2012 End: 07-18-2012 Hepatic function 2000 panel - Serum or Plasma *Hepatic Function Panel [facility] Work Phone: Start: 07-12-2012 End: 07-18-2012 Lipid 1996 panel - Serum or Plasma *Lipid Profile [facility] Work Phone: Start: 05-16-2012 End: 05-16-2012 Ecg routine ecg w/least 12 lds w/i&r EKG (In office) [facility] Work Phone: Start: 05-16-2012 End: 05-16-2012 Follow Up Appt 6 months Follow Up Appt 6 months [facility] Work Phone: Start: 05-16-2012 End: 05-16-2012 Ecg routine ecg w/least 12 lds w/i&r EKG (In office) [facility] Work Phone: Start: 05-16-2012 End: 05-16-2012 Follow Up Appt 6 months Follow Up Appt 6 months [facility] Work Phone: Start: 01-30-2012 End: 01-30-2012 *Hepatic Function Panel *Hepatic Function Panel [facility] Work Phone: Start: 01-30-2012 End: 01-30-2012 Lipid panel [AGGREGATE] *Lipid Profile [facility] Work Phone: Start: 01-30-2012 End: 01-30-2012 Hepatic function 2000 panel - Serum or Plasma *Hepatic Function Panel [facility] Work Phone: Start: 01-30-2012 End: 01-30-2012 Lipid 1996 panel - Serum or Plasma *Lipid Profile [facility] Work Phone: Start: 10-19-2011 End: 10-30-2011 *Hepatic Function Panel *Hepatic Function Panel [facility] Work Phone: Start: 10-19-2011 End: 10-19-2011 Echocardiography Echocardiogram (complete) [facility] Work Phone: Start: 10-19-2011 End: 05-13-2013 Follow Up Appt 6 months Follow Up Appt 6 months [facility] Work Phone: Start: 10-19-2011 End: 10-30-2011 Lipid panel [AGGREGATE] *Lipid Profile [facility] Work Phone: Start: 10-19-2011 End: 10-19-2011 Nuclear stress test -exercise Nuclear stress test -exercise [facility] Work Phone: Start: 10-19-2011 End: 10-19-2011 Echocardiography Echocardiogram (complete) [facility] Work Phone: Start: 10-19-2011 End: 05-13-2013 Follow Up Appt 6 months Follow Up Appt 6 months [facility] Work Phone: Start: 10-19-2011 End: 10-30-2011 Hepatic function 2000 panel - Serum or Plasma *Hepatic Function Panel [facility] Work Phone: Start: 10-19-2011 End: 10-30-2011 Lipid 1996 panel - Serum or Plasma *Lipid Profile [facility] Work Phone: Start: 10-19-2011 End: 10-19-2011 Nuclear stress test -exercise Nuclear stress test -exercise [facility] Work Phone: Patient Education [facility] in Work Phone: Fall risk assessment 10-27-2016 Note Date & Type Note Facility 10-27-2016 Fall risk assessm ent [facility] Work Phone: [place] No Fall risk assessment 10-18-2016 Note Date & Type Note Facility 10-18-2016 Fall risk assessm ent [facility] Work Phone: [place] No Additional Source Comments FOR RECORDS PERTAINING TO [...] BE BASED ON THE PRIMARY CLINICAL RECORDS. [employer] [facility]. provides no warranty or guarantee of the accuracy or completeness of information in this document.
[2024-03-30 14:08] LABS: Bacteria RARE /hpf (None Seen); White Blood Cells 0-5 SEEN /hpf (0-5)
[2024-03-30 14:13] LABS: Lymphocyte 8 % (19-41); Monocyte 15 % (0-10); Neutrophil-Segmented 77 % (47-70); Red Cell Morphology NORM C+C NORMAL (NORM C&C); Total Cells Counted 100 (MANUAL DIFF)
[2024-03-30 14:14] LABS: Absolute Lymphocyte Count 0.47 X10^3/uL (0.83-4.51); Absolute Neutrophil Count 4.5 X10^3/uL (2.0-7.7); Platelet Estimate SLT DEC (ADEQ)
[2024-03-30 15:00] VITALS: BP 124/85; PULSE 75; RESP 13; O2SAT 97
[2024-03-30 15:12] LABS: Reflex Troponin-HS? (from REC) Y
[2024-03-30 16:00] VITALS: BP 125/66; PULSE 84; RESP 16; O2SAT 100
[2024-03-30 16:55] VITALS: BP 125/66; PULSE 84; RESP 16; TEMP 36.4; O2SAT 100
[2024-03-30 17:12] LABS: Reflex Lactate? Y
== END 2024-03-30 17:22 | disposition home or self-care (01) ==
PROVIDERS: Emergency Provider Surgery; PCP Family Medicine; Referring Provider Surgery; Visit Provider Surgery
DX: E86.0 Dehydration (principal); G20.A1 Parkinson's disease without dyskinesia, without mention of fluctuations; F02.80 Dementia in other diseases classified elsewhere, unspecified severity, without behavioral disturbance, psychotic disturbance, mood disturbance, and anxiety; E11.22 Type 2 diabetes mellitus with diabetic chronic kidney disease; Z79.4 Long term (current) use of insulin; I95.9 Hypotension, unspecified; E86.1 Hypovolemia; F05 Delirium due to known physiological condition; I25.10 Atherosclerotic heart disease of native coronary artery without angina pectoris; G93.40 Encephalopathy, unspecified; N18.9 Chronic kidney disease, unspecified; I12.9 Hypertensive chronic kidney disease with stage 1 through stage 4 chronic kidney disease, or unspecified chronic kidney disease; G47.00 Insomnia, unspecified; E87.5 Hyperkalemia; E78.00 Pure hypercholesterolemia, unspecified; E03.9 Hypothyroidism, unspecified; Z11.52 Encounter for screening for COVID-19; Z79.82 Long term (current) use of aspirin; Z79.899 Other long term (current) drug therapy; Z95.5 Presence of coronary angioplasty implant and graft
CPT/HCPCS: 36600; 70450; 71045; 80053; 81001; 82803; 83605; 84443; 84484; 85025; 85610; 85730; 87040; 87077; 87086; 87088; 87186; 87631; 93005; 96361; 96365; 99285; J7030; J7040; A4216; J0696